=== PATIENT | male | born 1950 | race Caucasian/White ===

== ENCOUNTER 2020-02-05 09:10 | Inpatient (IN) | payer MEDICAID, OTHER ==
[~2020-02-05] VITALS: Ht 170.2 cm; Wt 101.5 kg
[~2020-02-05 09:10] MED LIST: ALBU0.5N2; ALLO-51; ALPR; AMIO200T33 PO; ASPI325T25 PO; ATOR40TA52 PO; CHOL400C2; CITA-77; COLC1TAB3; COMIH IN; DILT360T2 PO; DOCU240C24 PO; EPIN0.3I18; ETHA25TA2 PO; FLUN0.02; GABA800T97; GABA800T97 PO; HYD25T PO; HYDR25CA26; LISI40TA PO; METO-159 PO; METO1TAB9 PO; MORP1TAB12 PO; MULTTAB99; NIAC500T25 PO; NITR0.4S31; NORT25CA PO; OMEG100062; OMEP20TA37 PO; PHEN-839 PO; POTA10TA75 PO; PRED10PA; PSEU60TA PO; ROSU40TA; SENN-46 PO; SIME80CH6 PO; SKINCRE; TERA10CA36 PO; TRAZ100T3 PO; TRIO1TP; ZOLP10TA PO; [UNRECOGNIZED DRUG - CODE]; [UNRECOGNIZED DRUG - CODE]; [UNRECOGNIZED DRUG - CODE] PO
[2020-02-05 09:49] LABS: Basophils # (auto) 0 10 ^3/uL (0-0.2); Basophils % (auto) 0.3 % (0.0-2.0); Eosinophils # (auto) 0.1 10 ^3/uL (0-0.8); Eosinophils % (auto) 0.9 % (0.0-7.0); Hematocrit 42.8 % (41.0-53.0); Hemoglobin 13.8 g/dL (13.5-17.5); Lymphocytes # (auto) 0.9 10 ^3/uL (0.4-5.4); Lymphocytes % (auto) 12.7 % (10.0-50.0); Mean Corpuscular Hemoglobin 30.6 pg (28.0-32.0); Mean Corpuscular Hgb Conc. 32.3 g/dL (32.0-36.0); Mean Corpuscular Volume 94.9 fL (80.0-100.0); Monocytes # (auto) 0.7 10 ^3/uL (0-1.3); Monocytes % (auto) 10.4 % (0.0-12.0); Neutrophils # (auto) 5.1 10 ^3/uL (1.6-8.6); Neutrophils % (auto) 75.7 % (37.0-80.0); Platelet Count (auto) 120 10^3/uL (140-450); Red Blood Cells 4.51 10^6/uL (4.5-5.90); Red Cell Distribution Width 15.2 % (11.8-14.3); White Blood Cell 6.8 10^3/uL (4.4-10.8)
[2020-02-05 10:08] LABS: Albumin 2.9 g/dL (3.4-5.0); Anion Gap 4 (5-15); Blood Urea Nitrogen 21 mg/dL (7-18); Calcium 8.6 mg/dL (8.5-10.1); Carbon Dioxide 27 mmol/L (21-32); Chloride 105 mmol/L (98-107); Glucose 102 mg/dL (74-106); Potassium 4.3 mmol/L (3.5-5.1); Sodium 136 mmol/L (136-145)
[2020-02-05 10:11] LABS: INR 1.01 (0.9-1.15); Partial Thromboplastin Time 31.6 sec (23.64-32.05)
[2020-02-05 10:13] LABS: Alanine Aminotransferase 23 U/L (16-61); Alkaline Phosphatase 85 U/L (45-117); Aspartate Aminotransferase 16 U/L (15-37); BUN/Creatinine Ratio 29.2; Bilirubin, Total 0.4 mg/dL (0.2-1.0); GFR African American 140 mL/min; GFR Non-African American 116 mL/min; Total Protein 6.3 g/dL (6.4-8.2)
[2020-02-05] MEDS ORDERED: SODIUM CHLORIDE 0.9% 250 ML IV ONE (10:30)
[2020-02-05] MEDS ORDERED: PROMETHAZINE HCL 25 MG/ML 1ML IV ONE (12:00)
[2020-02-05 12:19] LABS: Urine Bacteria NONE SEEN /hpf (None Seen); Urine Blood Negative /uL (Negative); Urine Mucus FEW (None Seen); Urine WBC 1 /hpf (0 - 3)
[2020-02-05] MEDS ORDERED: IOHEXOL 350 MG/ML 100ML IJ ONE (12:54)
[2020-02-05] MEDS ORDERED: dilTIAZem 25 MG/5 ML VIAL IV ONE ×2 (14:44→14:45)
[2020-02-05] MEDS ORDERED: METOPROLOL TARTRATE 1MG/1ML-5ML VIAL IV ONE (15:45)
[2020-02-05] MEDS ORDERED: ENOXAPARIN SOD 100 MG/1 ML SYRINGE SC ONE (16:45)
[2020-02-05] MEDS: SODIUM CHLORIDE 0.9% 1,000 ML IV SCH (16:45)
[2020-02-05] MEDS ORDERED: MORPHINE SULF INJ 2 MG/ML SYRINGE 1ML IV PRN (16:45)
[2020-02-05] MEDS ORDERED: IPRATROPIUM BROM 0.5 MG/2.5ML INH SOL NEB PRN (16:45)
[2020-02-05] MEDS ORDERED: ONDANSETRON HCL 4 MG/2 ML VIAL IV PRN (16:45)
[2020-02-05] MEDS ORDERED: NITROGLYCERIN 0.4 MG SL TAB SL PRN (16:45)
[2020-02-05] MEDS ORDERED: ACETAMINOPHEN 500 MG TAB PO PRN (16:45)
[2020-02-05] MEDS ORDERED: AMIODARONE HCL 150 MG in D5W 5% 100 ML IV ONE (16:45)
[2020-02-05] MEDS ORDERED: LEVALBUTEROL HCL 1.25 MG/3 ML NEB NEB PRN (16:45)
[2020-02-05] MEDS ORDERED: AMIODARONE 450mg/250ml AE 250 ML IV SCH ×2 (16:55→22:55)
[2020-02-05] MEDS ORDERED: AMIODARONE HCL (50 MG/ ML) 3 ML VIAL IV ONE (17:03)
[2020-02-05] MEDS ORDERED: methylPREDNISolone SOD SUCC 125 MG/2 ML VL ONE (17:20)
[2020-02-05] MEDS ORDERED: FAMOTIDINE (10MG/ML) 2ML VL IV ONE ×2 (17:20→17:45)
[2020-02-05] MEDS ORDERED: DIGOXIN (250MCG/ML) 2 ML AMPULE IV ONE (17:30)
[2020-02-05] MEDS: dilTIAZem 125mg/125ml BAG KIT 125 ML IV SCH (17:30)
[2020-02-05] MEDS ORDERED: methylPREDNISolone SOD SUCC 125 MG/2 ML VL IV ONE (17:45)
[2020-02-05] MEDS ORDERED: MIDAZOLAM HCL 5 MG/ML-1ML VIAL ONE (17:57)
[2020-02-05] MEDS ORDERED: ENOXAPARIN SOD 30 MG/0.3 ML SYRINGE ONE (17:59)
[2020-02-05] MEDS ORDERED: ENOXAPARIN SOD 30 MG/0.3 ML SYRINGE IV ONE (18:00)
[2020-02-05] MEDS ORDERED: MIDAZOLAM HCL 1MG/1ML-2 ML VIAL IV ONE (18:00)
[2020-02-05] MEDS ORDERED: PHENYLEPHRINE IV 250 ML IV ONE (18:11)
[2020-02-05] MEDS: PHENYLEPHRINE IV 250 ML IV SCH ×2 (18:15→21:16)
[2020-02-05] MEDS: METOPROLOL TARTRATE 50 MG TAB PO SCH (23:03)
[2020-02-06] VITALS (54 sets, daily range): BP systolic 100–142; BP diastolic 46–81
[2020-02-06] MEDS: PHENYLEPHRINE IV 250 ML IV SCH ×2 (00:07→11:30)
[2020-02-06] MEDS: SODIUM CHLORIDE 0.9% 1,000 ML IV SCH ×3 (02:45→20:00)
--- NOTE | 2020-02-06 07:25 | NUR ---
REPORT REPORT OBTAINED. UPDATED ON PLAN OF CARE. PT CURRENTLY SLEEPING, NO SIGNS OF DISTRESS. VSS. CHART CHECK COMPLETED. BED IN LOWEST POSITION, CALL LIGHT AT REACH, BED ALARM ON. SEE PHYSICAL/ IV SPREADSHEET.
--- NOTE | 2020-02-06 09:00 | NUR ---
HR 68, RR 17, SPO2 98% ON 3 L NC, BS CLEAR AND DIMINISHED. PT STATES HIS BREATHING FEELS GOOD. HE ONLY TAKES HIS INHALER AT HOME VERY SPORADICALLY. INFORMED PT TO HIT CALL BUTTON IF FEELING SOB OR WHEEZING. Respiratory note:
--- NOTE | 2020-02-06 09:13 | NUR ---
MD UPDATE MD UPDATED ON PATIENTS STATUS. PER MD, NO NARCOTICS AT THIS TIME PATIENTS BP IS LOW AND CAN CAUSE FURTHER BLOOD PRESSURE ISSUES. SEE NEW ORDERS. OK TO DOWNGRADE TO TELE IF OFF ALL PRESSORS AND STABLE BY THE END OF THE SHIFT.
[2020-02-06] MEDS ORDERED: AMIODARONE HCL 200 MG TAB PO SCH (10:00)
[2020-02-06] MEDS: METOPROLOL TARTRATE 50 MG TAB PO SCH ×2 (10:00→22:00)
[2020-02-06 10:05] LABS: Basophils # (auto) 0 10 ^3/uL (0-0.2); Basophils % (auto) 0.5 % (0.0-2.0); Eosinophils # (auto) 0 10 ^3/uL (0-0.8); Eosinophils % (auto) 0.2 % (0.0-7.0); Hematocrit 40.6 % (41.0-53.0); Hemoglobin 13.2 g/dL (13.5-17.5); Lymphocytes # (auto) 0.7 10 ^3/uL (0.4-5.4); Lymphocytes % (auto) 16.3 % (10.0-50.0); Mean Corpuscular Hemoglobin 30.9 pg (28.0-32.0); Mean Corpuscular Hgb Conc. 32.5 g/dL (32.0-36.0); Mean Corpuscular Volume 95.2 fL (80.0-100.0); Monocytes # (auto) 0.3 10 ^3/uL (0-1.3); Monocytes % (auto) 7.2 % (0.0-12.0); Neutrophils # (auto) 3.2 10 ^3/uL (1.6-8.6); Neutrophils % (auto) 75.8 % (37.0-80.0); Nucleated Red Blood Cells % 0.1 %; Platelet Count (auto) 137 10^3/uL (140-450); Red Blood Cells 4.26 10^6/uL (4.5-5.90); Red Cell Distribution Width 15.4 % (11.8-14.3); White Blood Cell 4.2 10^3/uL (4.4-10.8)
[2020-02-06 10:24] LABS: Potassium 4.5 mmol/L (3.5-5.1)
[2020-02-06 10:29] LABS: BUN/Creatinine Ratio 20.3; Calcium 8.5 mg/dL (8.5-10.1); Magnesium 2.1 mg/dL (1.6-2.6)
[2020-02-06] MEDS: FAMOTIDINE 20 MG TAB PO SCH (10:38)
[2020-02-06] MEDS: CITALOPRAM HYDROBR 20 MG TAB PO SCH (10:38)
[2020-02-06] MEDS: ASPirin 81 mg TAB PO SCH (10:38)
[2020-02-06] MEDS: dilTIAZem 125mg/125ml BAG KIT 125 ML IV SCH (10:41)
--- NOTE | 2020-02-06 11:00 | NUR ---
AT BEDSIDE DR. ROBERTS UPDATED ON PATIENTS STATUS. NEW ORDERS IN PLACE. OK TO DOWNGRADE TO TELE AT THE END OF SHIFT IF BP REMAINS STABLE WITHOUT PRESSORS. Addendum: 02/06/20 at 1714 by Rafaela Manzo RN BP A.M. MEDICATION HELD TO AVOID FURTHER HYPOTENSION. AWARE.
--- NOTE | 2020-02-06 14:29 | NUR ---
DRIVER DR. HAWK AT BEDSIDE. MD UPDATED ON PATIENT STATUS. MEDICATION LIST SHOWN TO MD. OK TO DOWNGRADE TO TELE. SEE MD NOTES/ ORDERS. ECHO PENDING.
--- NOTE | 2020-02-06 14:54 | NUR ---
[employer] HCM DEVELOPER AT BEDSIDE.
--- NOTE | 2020-02-06 19:30 | NUR ---
Opening Shift Note: A&Ox4, resting in bed. Room air, patient states he wears 2.5LO2 via NC prn at home; pain level 5/10 chronic right hip pain; and at baseline, ambulates independently with a cane; currently SBA pivot to the BSC. Bed locked in lowest position, side rails up x2, call light within reach, and bed alarm on for patient safety. Skin intact. IV 18 g in right wrist running NS @ 100 ml/hr inserted on 02/05/20. Patient had a cardioversion (x2, one at 50j and second at 75j) to convert Afib RVR to NSR. Patient is currently NSR in 80s-90s and BP stable 120s-130s. POC discussed with patient and all questions answered. Telemetry downgrade order in; pending bed assignment. Will continue to round and reposition prn.
--- NOTE | 2020-02-06 21:00 | NUR ---
Respiratory note: PT ASSESSED FOR PRN MED NEB TX. HR 91, RR 15. PO2 98% ON RA. NO SIGNS OF ANY RESPIRATORY DISTRESS NOTED. ADVISED PT TO CALL IF TX IS NEEDED.
[2020-02-07] VITALS (35 sets, daily range): BP systolic 108–160; BP diastolic 44–113
[2020-02-07] MEDS: HYDROcodone-ACET 5/325MG TAB PO PRN ×4 (01:30→17:30)
[2020-02-07] MEDS: PHENYLEPHRINE IV 250 ML IV SCH ×2 (03:25→11:45)
[2020-02-07 04:22] LABS: Basophils # (auto) 0 10 ^3/uL (0-0.2); Basophils % (auto) 0.2 % (0.0-2.0); Eosinophils # (auto) 0.1 10 ^3/uL (0-0.8); Eosinophils % (auto) 2.6 % (0.0-7.0); Hematocrit 35.8 % (41.0-53.0); Hemoglobin 11.7 g/dL (13.5-17.5); Lymphocytes % (auto) 29.1 % (10.0-50.0); Mean Corpuscular Hemoglobin 31.2 pg (28.0-32.0); Mean Corpuscular Hgb Conc. 32.6 g/dL (32.0-36.0); Mean Corpuscular Volume 95.7 fL (80.0-100.0); Monocytes # (auto) 0.4 10 ^3/uL (0-1.3); Monocytes % (auto) 11.1 % (0.0-12.0); Neutrophils # (auto) 1.9 10 ^3/uL (1.6-8.6); Nucleated Red Blood Cells % 0.1 %; Platelet Count (auto) 100 10^3/uL (140-450); Red Blood Cells 3.74 10^6/uL (4.5-5.90); Red Cell Distribution Width 15.1 % (11.8-14.3); White Blood Cell 3.4 10^3/uL (4.4-10.8)
[2020-02-07 04:38] LABS: BUN/Creatinine Ratio 18.2; Calcium 8.2 mg/dL (8.5-10.1); Magnesium 2.2 mg/dL (1.6-2.6); Potassium 4.1 mmol/L (3.5-5.1)
--- NOTE | 2020-02-07 06:03 | NUR ---
Respiratory note: PT ASSESSED FOR PRN MED NEB TX, NO TX DESIRED NOR INDICATED. PT AWAKE/SITTING IN BED WITH NO NOTED DISTRESS, DENIES ANY CURRENT SOB. PT AND RN AWARE TO HAVE RT PAGED IF NEEDED. HR 68 RR 16 SPO2 100% ON 2L.
[2020-02-07] MEDS: SODIUM CHLORIDE 0.9% 1,000 ML IV SCH ×2 (07:05→18:45)
[2020-02-07] MEDS: METOPROLOL TARTRATE 50 MG TAB PO SCH (10:00)
[2020-02-07] MEDS: CITALOPRAM HYDROBR 20 MG TAB PO SCH (12:09)
[2020-02-07] MEDS: FAMOTIDINE 20 MG TAB PO SCH (12:09)
[2020-02-07] MEDS: ASPirin 81 mg TAB PO SCH (12:09)
--- NOTE | 2020-02-07 12:30 | NUR ---
CALL PLACED TO DR HAWK RE: PATIENT'S HR DECREASING TO 37-38 NONSUSTAINED RATE AND 46-48 WHEN AWAKE AT TIMES - STATES HR OKAY IF NONSUSTAINED AND PATIENT SHOULD BE DOWNGRADED TO TELE STATUS - INFORMED DR HAWK THAT NO BEDS ON TELE AVAILABLE YESTERDAY OR THIS AM.
--- NOTE | 2020-02-07 12:55 | NUR ---
DR Rory SHOOK PHONES AND UPDATED ON PATIENT CONDITION -STATES WOULD LIKE TO DISCHARGE PATIENT IF OK WITH DR HAWK.
--- NOTE | 2020-02-07 13:20 | NUR ---
CALL PLACED TO DR HAWK PER GARBAGE DEPOT WORKER PER DR SHOOK REQUEST FOR DISCHARGE CLEARANCE.
--- NOTE | 2020-02-07 15:00 | NUR ---
PLACED ANOTHER CALL TO DR HAWK RE: STABILITY FOR DISCHARGE - ORDER RECEIVED.
--- NOTE | 2020-02-07 15:15 | NUR ---
DR SHOOK VISITS - INFORMED OF OK FOR DISCHARGE PER DR HAWK - STATES WILL DISCHARGE PATIENT.
--- NOTE | 2020-02-07 16:10 | NUR ---
SS consult regarding Home health for safety evaluation and blood pressure monitoring. Contacted pt's medical group and faxed clinical information. Referred to [facility] ([phone])and spoke with Erin. confirmed that pt is accepted onto service and will be seen post discharge. No further social service concerns at this time.
[2020-02-07] MEDS ORDERED: MET25T PO (17:12)
[2020-02-07] MEDS ORDERED: APIX5TAB PO (17:12)
--- NOTE | 2020-02-07 17:43 | NUR ---
PATIENT'S HR SUSTAINING 38-41 - BP 135/44 - CALL PLACED TO DR SHOOK.
--- NOTE | 2020-02-07 17:55 | NUR ---
DR HAWK RETURNS CALL - INFORMED OF PATIENT SUSTAINING HR 36-41 WHEN AWAKE - ORDER RECEIVED TO KEEP PATIENT OVERNIGHT FOR ADDITIONAL MONITORING ON EITHER TELE OR KIRK FLOOR - CALL PLACED TO DR SHOOK. HR CONT'S TO SUSTAIN 36-41 WHEN PATIENT DOSING AND AWAKE - STRIPS POSTED TO CHART.
--- NOTE | 2020-02-07 18:45 | NUR ---
DR SHOOK RETURNS CALL - AWARE OF PATIENT LOW H.R. PER NOTES AND DELAYED DISCHARGE.
--- NOTE | 2020-02-07 20:00 | NUR ---
Respiratory note: PT RECIEVED ON NC3L. PT IS AWAKE AND ALERT WITH NO RESP DISTRESS NOTED. NO INDICATION FOR PRN TX AT THIS TIME. SPO2 98%, HR 64, RR 18, BS CLR/DIM. PT AWARE TO CALL FOR BREATHING TX IF SOB/WHEEZING. WILL CONTINUE TO MONITOR PT T/O SHIFT.
--- NOTE | 2020-02-07 20:05 | NUR ---
TRANSFERRED TO ROOM 261 PER BED ON PORTABLE COPY LATHE TENDER AND O2 @ 2L PER NC. CONDITION APPEARS STABLE FOR TRANSFER.
--- NOTE | 2020-02-07 20:23 | NUR ---
PT IN [place] NO DISTRESS NOTED. BREATHING EVEN AND UNLABORED. WILL CONTINUE TO MONITOR. CALL LIGHT WITHIN REACH AND BED LOCKED FOR SAFETY.
[2020-02-07] MEDS: METOPROLOL TARTRATE 25 MG TAB PO SCH (21:54)
[2020-02-08] VITALS: BP 156/74
--- NOTE | 2020-02-08 01:05 | NUR ---
PT WATCHING TABLET ALSO TALKING WITH FAMILY. CALL LIGHT WITHIN REACH WILL KEEP MONITORING.
[2020-02-08] MEDS: MORPHINE SULF INJ 2 MG/ML SYRINGE 1ML IV PRN ×2 (01:32→09:48)
[2020-02-08 04:00] VITALS: BP 134/66
[2020-02-08] MEDS: SODIUM CHLORIDE 0.9% 1,000 ML IV SCH (04:11)
--- NOTE | 2020-02-08 05:57 | NUR ---
REMOVED IV PT STATES WHILE REPOSITIONING IV WAS DISLODGED. PT CHANGED PARTIAL LINEN CHANGE. EDUCATED PT ON IV FLUID DELAY UNTIL NEW IV PLACED.
--- NOTE | 2020-02-08 06:51 | NUR ---
Respiratory note: PT ASSESSED FOR PRN MED NEB TX, NO TX DESIRED NOR INDICATED. PT AWAKE/SITTING IN BED WATCHING TV WITH NO NOTED DISTRESS, DENIES ANY CURRENT SOB. PT AND RN AWARE TO HAVE RT PAGED IF NEEDED. HR 78 RR 14 SPO2 95% ON 2.5L N/C BREATH SOUNDS ARE CLEAR/DIMINISHED T/O.
[2020-02-08] MEDS: HYDROcodone-ACET 5/325MG TAB PO PRN (06:54)
--- NOTE | 2020-02-08 07:30 | NUR ---
ASSESS- PT. LYING IN BED AWAKE, ALERT AND ORIENTED TIMES FOUR. DENIES ANY PAIN OR DISCOMFORT AT THIS TIME. LUNGS CLEAR ROMAN. INSPIRATORY AND EXPIRATORY. NO SOB. O2 3L N/C. PT. REMOVES O2 AT TIMES, NO SIGNS OF RESP. DISTRESS, O2 SATS>90%. ABD. SOFT, FLAT, NON-TENDER. BOWEL SOUNDS ALL FOUR QUADRANTS. NO N/V. VOIDS VIA URINAL WITHOUT DIFFICULTY. SKIN INTACT. RADIAL PULSES STRONG, PALPABLE ROMAN. DORSALIS PEDAL PULSES STRONG, PALPABLE ROMAN. NO EDEMA. SCD'S ROMAN. LE. SR, HR 70'S-80'S WITHOUT ECTOPY.
[2020-02-08 08:00] VITALS: BP 154/73
[2020-02-08] MEDS: ASPirin 81 mg TAB PO SCH (09:41)
[2020-02-08] MEDS: FAMOTIDINE 20 MG TAB PO SCH (09:41)
[2020-02-08] MEDS: METOPROLOL TARTRATE 25 MG TAB PO SCH (09:42)
[2020-02-08] MEDS: CITALOPRAM HYDROBR 20 MG TAB PO SCH (09:42)
--- NOTE | 2020-02-08 09:48 | NUR ---
PT. REPORTING BACK PAIN AND ROMAN. HIP PAIN 8 ON A SCALE OF 0-10. MED. WITH MORPHINE 1MG. IVP.
--- NOTE | 2020-02-08 10:18 | NUR ---
PT. NO LONGER HAVING ANY PAIN.
--- NOTE | 2020-02-08 11:35 | NUR ---
DR. Juvenal QUISPE CALLED AND SAID IF DR. KENN ARRIAZA PT. MAY BE D'C'D . TODAY, PLACED D'C ORDER.
--- NOTE | 2020-02-08 11:37 | NUR ---
Called/paged Dr. HAWK called re:. Waiting for call back. Continue care.
--- NOTE | 2020-02-08 11:51 | NUR ---
returned call Dr. HAWK returned call, updated on patient status and reason for call, orders received. Continue care.
[2020-02-08 12:00] VITALS: BP 122/50
[2020-02-08 12:17] VITALS: BP 122/50
[2020-02-08 13:06] VITALS: BP 122/50
--- NOTE | 2020-02-08 14:15 | NUR ---
PT. D'C'D HM. VIA W/C TO CAR, FAMILY PICKING PT. UP VIA CAR. BELONGINGS WITH PT. ALL D'C' INFORMATION AND HANDOUTS GIVEN TO PT. FOLLOW UP APPT. WITH DR. KENN PEREZ. PT. HAD ELECTRONIC RX. WITH HIS PHARM[facility], CALLED AND NEW RX. 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
== END 2020-02-08 14:29 | disposition home health service (06) | DRG 308 ==
LOC: EDBD 09:10 → ER 09:10 → EDUNIT# 09:10 → TELE 09:11 → ICU WEST 02-06 03:50 → DOU IN ICU 02-07 20:05
PROVIDERS: ADMIT Nurse Practitioner Acute Care; ATTEND Hospitalist
PROC: 5A2204Z Restoration of Cardiac Rhythm, Single (ICD-10-PCS; principal; 2020-02-06)
DX: I48.91 Unspecified atrial fibrillation (principal); R57.1 Hypovolemic shock; R57.0 Cardiogenic shock; D68.59 Other primary thrombophilia; E44.0 Moderate protein-calorie malnutrition; J44.9 Chronic obstructive pulmonary disease, unspecified; E66.9 Obesity, unspecified; Z79.891 Long term (current) use of opiate analgesic; F32.9 Major depressive disorder, single episode, unspecified; G89.4 Chronic pain syndrome; M15.9 Polyosteoarthritis, unspecified; I95.9 Hypotension, unspecified; D69.6 Thrombocytopenia, unspecified; E78.5 Hyperlipidemia, unspecified; I47.1 Supraventricular tachycardia; K21.9 Gastro-esophageal reflux disease without esophagitis; M10.9 Gout, unspecified; R00.1 Bradycardia, unspecified; I71.2 Thoracic aortic aneurysm, without rupture; Z68.35 Body mass index [BMI] 35.0-35.9, adult; Z88.2 Allergy status to sulfonamides; Z82.49 Family history of ischemic heart disease and other diseases of the circulatory system; Z82.5 Family history of asthma and other chronic lower respiratory diseases; Z83.3 Family history of diabetes mellitus
CPT/HCPCS: 36415; 71045; 71275; 80048; 80053; 81001; 83735; 83880; 84443; 84484; 85025; 85379; 85610; 85730; 87081; 93005; 93306; 94640; G0378; J2250; J3490; J7060

== ENCOUNTER 2020-02-20 21:40 | Inpatient (IN) | payer OTHER ==
[~2020-02-20] VITALS: Ht 177.8 cm; Wt 98.9 kg
[~2020-02-20 21:40] MED LIST changes: -ALPR; -AMIO200T33 PO; +APIX5TAB PO; -ASPI325T25 PO; -COLC1TAB3; -COMIH IN; -DILT360T2 PO; -ETHA25TA2 PO; -FLUN0.02; -GABA800T97; -GABA800T97 PO; -HYD25T PO; -HYDR25CA26; -LISI40TA PO; +MET25T PO; -METO-159 PO; -METO1TAB9 PO; -MORP1TAB12 PO; -NIAC500T25 PO; -PHEN-839 PO; -PRED10PA; -PSEU60TA PO; -ROSU40TA; -SIME80CH6 PO; -SKINCRE; -TERA10CA36 PO; -TRIO1TP; -[UNRECOGNIZED DRUG - CODE]; -[UNRECOGNIZED DRUG - CODE]; -[UNRECOGNIZED DRUG - CODE] PO
[2020-02-20] MEDS ORDERED: MORPHINE SULFATE 4 MG/ML SYR/VIAL IV ONE (22:30)
[2020-02-20] MEDS ORDERED: ONDANSETRON HCL 4 MG/2 ML VIAL IV ONE (22:30)
[2020-02-20 22:48] LABS: Basophils # (auto) 0 10 ^3/uL (0-0.2); Basophils % (auto) 0.5 % (0.0-2.0); Eosinophils # (auto) 0.1 10 ^3/uL (0-0.8); Eosinophils % (auto) 0.6 % (0.0-7.0); Hematocrit 38.8 % (41.0-53.0); Hemoglobin 12.6 g/dL (13.5-17.5); Lymphocytes # (auto) 0.9 10 ^3/uL (0.4-5.4); Lymphocytes % (auto) 9.2 % (10.0-50.0); Mean Corpuscular Hemoglobin 30.7 pg (28.0-32.0); Mean Corpuscular Hgb Conc. 32.4 g/dL (32.0-36.0); Mean Corpuscular Volume 94.8 fL (80.0-100.0); Monocytes # (auto) 0.8 10 ^3/uL (0-1.3); Monocytes % (auto) 8.3 % (0.0-12.0); Neutrophils # (auto) 7.7 10 ^3/uL (1.6-8.6); Neutrophils % (auto) 81.4 % (37.0-80.0); Platelet Count (auto) 187 10^3/uL (140-450); Red Blood Cells 4.09 10^6/uL (4.5-5.90); Red Cell Distribution Width 15.3 % (11.8-14.3); White Blood Cell 9.4 10^3/uL (4.4-10.8)
[2020-02-20 23:06] LABS: Anion Gap 3 (5-15); Blood Urea Nitrogen 22 mg/dL (7-18); Calcium 8.5 mg/dL (8.5-10.1); Carbon Dioxide 29 mmol/L (21-32); Chloride 107 mmol/L (98-107); Glucose 100 mg/dL (74-106); Potassium 4.4 mmol/L (3.5-5.1); Sodium 139 mmol/L (136-145)
[2020-02-20 23:09] LABS: Alanine Aminotransferase 20 U/L (16-61); Aspartate Aminotransferase 15 U/L (15-37); BUN/Creatinine Ratio 24.2; GFR African American 107 mL/min; GFR Non-African American 88 mL/min
[2020-02-20 23:13] LABS: Alkaline Phosphatase 87 U/L (45-117); Bilirubin, Total 0.3 mg/dL (0.2-1.0); Total Protein 6.3 g/dL (6.4-8.2)
[2020-02-21] MEDS ORDERED: MORPHINE SULFATE 4 MG/ML SYR/VIAL IV ONE (01:45)
[2020-02-21] MEDS ORDERED: NITROGLYCERIN 0.4 MG SL TAB SL PRN (02:45)
[2020-02-21] MEDS ORDERED: ACETAMINOPHEN 325 MG TAB PO PRN (02:45)
[2020-02-21] MEDS ORDERED: IPRATROPIUM BROM 0.5 MG/2.5ML INH SOL NEB PRN (02:45)
[2020-02-21] MEDS ORDERED: METOPROLOL TARTRATE 1MG/1ML-5ML VIAL IV PRN (02:45)
[2020-02-21] MEDS ORDERED: ALBUTEROL SULF 2.5 MG/0.5ML(0.5%) NEB SOLN NEB PRN (02:45)
[2020-02-21] MEDS ORDERED: ZOLPIDEM TARTRATE 5 MG TAB PO PRN (02:45)
[2020-02-21] MEDS ORDERED: ONDANSETRON HCL 4 MG/2 ML VIAL IV PRN (02:45)
[2020-02-21 03:31] LABS: Urine Amorphous Crystal FEW /hpf (None Seen); Urine Bacteria FEW /hpf (None Seen); Urine Blood Negative /uL (Negative); Urine Specific Gravity 1.017 (1.001-1.035); Urine WBC <1 /hpf (0 - 3)
[2020-02-21 07:12] LABS: Basophils # (auto) 0 10 ^3/uL (0-0.2); Basophils % (auto) 0.6 % (0.0-2.0); Eosinophils # (auto) 0.1 10 ^3/uL (0-0.8); Eosinophils % (auto) 1.5 % (0.0-7.0); Hematocrit 37.1 % (41.0-53.0); Hemoglobin 12.3 g/dL (13.5-17.5); Lymphocytes # (auto) 1.2 10 ^3/uL (0.4-5.4); Lymphocytes % (auto) 23.2 % (10.0-50.0); Mean Corpuscular Hgb Conc. 33.1 g/dL (32.0-36.0); Mean Corpuscular Volume 93.8 fL (80.0-100.0); Monocytes # (auto) 0.7 10 ^3/uL (0-1.3); Monocytes % (auto) 14.1 % (0.0-12.0); Neutrophils # (auto) 3.1 10 ^3/uL (1.6-8.6); Neutrophils % (auto) 60.6 % (37.0-80.0); Nucleated Red Blood Cells % 0.2 %; Platelet Count (auto) 162 10^3/uL (140-450); Red Blood Cells 3.95 10^6/uL (4.5-5.90); Red Cell Distribution Width 15.4 % (11.8-14.3); White Blood Cell 5.2 10^3/uL (4.4-10.8)
[2020-02-21 07:24] LABS: Calcium 7.8 mg/dL (8.5-10.1); Potassium 4.1 mmol/L (3.5-5.1)
[2020-02-21 07:29] LABS: BUN/Creatinine Ratio 21.9
[2020-02-21] MEDS: DOCUSATE SOD 100 MG CAP PO SCH (09:53)
[2020-02-21] MEDS: MORPHINE SULF INJ 2 MG/ML SYRINGE 1ML IV PRN ×2 (09:55→17:26)
[2020-02-21] MEDS: METOPROLOL TARTRATE 25 MG TAB PO SCH ×2 (09:58→22:00)
[2020-02-21] MEDS ORDERED: CLOPIDOGREL BISULFATE 75 MG TAB PO SCH (10:00)
[2020-02-21] MEDS ORDERED: LISINOPRIL 20 MG TAB PO SCH (10:00)
--- NOTE | 2020-02-21 16:00 | NUR ---
Telemetry admit from [facility] admitted to Telemetry unit after SBAR received. Patient oriented to SARI DOWNS, primary RN, unit, room, bed, and unit policies regarding patient care and visiting hours. Patient now on continuous telemetry monitoring, tele box #[id number]. Patient placed on bedside oxygen at 2L O2 via NC, weighed by bedscale and encouraged to call if they need something. All questions and concerns addressed, patient verbalized understanding. Cane at bedside. Patient advised to call before getting up for anything due to history of falls. Urinal provided. Fall band applied.
[2020-02-21 16:37] VITALS: BP 103/53
[2020-02-21 17:00] VITALS: BP 106/57
[2020-02-21 17:30] VITALS: BP 147/72
[2020-02-21] MEDS ORDERED: LISI-648 PO (18:39)
[2020-02-21] MEDS ORDERED: HYDR12.56 PO (18:39)
[2020-02-21] MEDS ORDERED: METO25TA5 PO (18:39)
[2020-02-21] MEDS ORDERED: DIAZ10TA3 PO (18:39)
--- NOTE | 2020-02-21 19:27 | NUR ---
Opening Shift Note Assumed care of patient after receiving report from day RN. Patient awake and alert with no S/S of distress/SOB or pain. Call light within reach, bed in lowest position x2 side rails, HOB semi fowlers. Instructed on POC and to call for assist PRN, will continue to monitor for changes Q1hr and PRN.
--- NOTE | 2020-02-21 21:10 | NUR ---
Respiratory note: PT ASSESSED FOR PRN MED NEB TX. HR 72, RR 18, SPO2 96% ON RA. NO S/S OF ANY RESPIRATORY DISTRESS NOTED. ADVISED PT TO CALL IF TX IS NEEDED. RT NAME AND PAGER NUMBER WRITTEN ON PT'S BOARD.
[2020-02-21 21:32] VITALS: BP 98/58
[2020-02-21] MEDS ORDERED: NORTRIPTYLINE HCL 25 MG CAP PO SCH (22:00)
[2020-02-21] MEDS ORDERED: ATORVASTATIN 20 MG TAB PO SCH (22:00)
--- NOTE | 2020-02-21 22:09 | NUR ---
Called pharmacy Called pharmacy regarding patient medication of scheduled Pamelor, medication not found. Per pharmacy, medication waiting, will bullet up.
[2020-02-21] MEDS: APIXABAN 5 MG TAB PO SCH (22:16)
--- NOTE | 2020-02-21 22:20 | NUR ---
BP reassessment RN reassessed BP with a current reading of 110/53 and HR 78. Patient refused scheduled BP medication stating it would drop him too low. Will continue to monitor.
--- NOTE | 2020-02-21 22:57 | NUR ---
Paged Hospitalist Paged hospitalist requesting pain medication. Patient complains of chronic right hip pain 04/10. Order received form hospitalist for [place] 5 Q8H PRN for moderate pain. Order received, read back, verified, and placed. Will administer and continue to monitor.
[2020-02-22] MEDS: HYDROcodone-ACET 5/325MG TAB PO PRN ×2 (00:45→14:39)
[2020-02-22 04:54] VITALS: BP 124/67
--- NOTE | 2020-02-22 06:04 | NUR ---
PRN [place] TX NOT INDICATED AT THIS TIME. PT ON SEMI FOWLERS POSITION. PT ON 2L/MIN VIA NC. 97% O2 SATS, HR 76BPM, RR16 BPM, BS ARE CLEAR TO AUSCULTATION, SKIN IS DRY AND WARM TO THE TOUCH. RESPIRATIONS ARE EVEN AND UNLABORED. PT DENIES SOB OR ANY OTHER RESPIRATORY DISTRESS. PT INSTRUCTED TO CALL IF [place] TX IS INDICATED. PT VERBALIZED UNDERSTANDING. WILL CONTINUE TO MONITOR PT.
[2020-02-22] MEDS: MORPHINE SULF INJ 2 MG/ML SYRINGE 1ML IV PRN (08:01)
[2020-02-22 08:48] VITALS: BP 151/101
[2020-02-22] MEDS ORDERED: SENNA 8.6 MG TAB PO SCH (10:00)
[2020-02-22] MEDS ORDERED: ALLOPURINOL 100 MG TAB PO SCH (10:00)
[2020-02-22] MEDS ORDERED: CITALOPRAM HYDROBR 20 MG TAB PO SCH (10:00)
[2020-02-22] MEDS ORDERED: MORPHINE SULF 15mg ER tab PO SCH (10:00)
[2020-02-22] MEDS ORDERED: diazePAM 2 MG TAB PO SCH ×2 (10:00→10:30)
[2020-02-22] MEDS ORDERED: METOPROLOL TARTRATE 25 MG TAB PO SCH (10:00)
[2020-02-22] MEDS ORDERED: LISINOPRIL 10 MG TAB PO SCH (10:00)
[2020-02-22] MEDS: APIXABAN 5 MG TAB PO SCH (10:23)
[2020-02-22] MEDS: DOCUSATE SOD 100 MG CAP PO SCH (10:23)
--- NOTE | 2020-02-22 10:32 | NUR ---
Assessment Patient is a 69-year-old male who is alert and oriented. Prior to admission patient lived home alone and functioned independently. Patient informed me he can care for his own ADLs but lately has been having difficulty walking due to his hip and kneed. Patient informed me he has been on service with [facility]. Informed patient I will inform nurse regarding resumption order for home health. Patient informed me he has a walker, cane, and electric wheelchair for home use. Patient informed me after discharge he will be staying with his son Ghassan Pereira:( [phone]) who will assist with his needs and will need a taxi voucher. Patient informed me he would like information regarding private care consultant. Information was given to patient regarding private caregivers. Informed patient he has a right to participate in all discharge planning. Patient verbalized understanding. Informed NIRAV Bosch regarding resumption order for home health safety eval and physical therapy.
[2020-02-22 10:35] VITALS: BP 108/60
--- NOTE | 2020-02-22 12:57 | NUR ---
ECHO Contacted ECHO staff they said that Dr. Sullivan did not want to do a repeat ECHO as patient had one done recently.
--- NOTE | 2020-02-22 14:03 | NUR ---
Diazepam - not given Patient stated he takes Diazepam 60 mg BID. Pharmacy called and said that dose is too high and above safe limits. They said the highest limit is 40 mg per day. This nurse spoke with the patient again and he said he takes 60 mg but splits it in half and takes it twice a day, so he takes Diazepam 30 mg BID. The pharmacy said this is still too high and want it verified. This nurse called his pharmacy, [facility], and they said they did not have that medication on file. This nurse asked the patient about the pharmacy and he said he gets the Diazepam [facility]. This nurse called the [facility] and they said that medication is not listed on his current medication list. They said there are no meds ending in "bjorn" on his current or previous medication list. Patient is being discharged home. Diazepam is held due to not being able to verify the dose or if the patient even takes the medication. He can take his home prescription after discharge if he is on the medication.
[2020-02-22 14:54] VITALS: BP 101/55
--- NOTE | 2020-02-22 15:03 | NUR ---
1500 02/22/20 - Faxed orders for physical therapy and physical safety to [facility] at [phone]. Contacted case resource manager Marla at [phone] who confirmed receipt of all faxed documents. Marla also informed that [facility] had been approved and had set up appointment to see patient once discharged.
--- NOTE | 2020-02-22 15:20 | NUR ---
Discharge Went over discharge paperwork with patient. No new prescriptions. Removed IV intact, no problems. Removed telemetry box and sent to ICU per hospital protocol. Removed ID bands. Patient unable to get a ride home at this time. Contacted for a taxi voucher.
--- NOTE | 2020-02-22 16:07 | NUR ---
Taxi - pt left Received taxi voucher from . Patient left in taxi with all personal belongings and went to his son's house.
== END 2020-02-22 16:10 | disposition home or self-care (01) | DRG 313 ==
LOC: ER 21:40 → EDBD 21:40 → TELE 21:41 → TELE-CENTR 02-21 16:20
PROVIDERS: ADMIT Hospitalist; ATTEND Hospitalist
DX: R07.89 Other chest pain (principal); D68.69 Other thrombophilia; I25.10 Atherosclerotic heart disease of native coronary artery without angina pectoris; J44.9 Chronic obstructive pulmonary disease, unspecified; E11.9 Type 2 diabetes mellitus without complications; Z68.31 Body mass index [BMI] 31.0-31.9, adult; G89.4 Chronic pain syndrome; I11.0 Hypertensive heart disease with heart failure; I50.9 Heart failure, unspecified; Z79.01 Long term (current) use of anticoagulants; I48.91 Unspecified atrial fibrillation; Z98.84 Bariatric surgery status; Z88.2 Allergy status to sulfonamides; Z88.5 Allergy status to narcotic agent; Z88.8 Allergy status to other drugs, medicaments and biological substances; E66.01 Morbid (severe) obesity due to excess calories
CPT/HCPCS: 36415; 71045; 80048; 80053; 80061; 81001; 83880; 84484; 85025; 87081; 93005; 96374; 96375; 96376; G0378; J2405

== ENCOUNTER 2020-08-11 02:26 | Emergency (ER) | payer OTHER ==
[~2020-08-11] VITALS: Ht 170.2 cm; Wt 92.5 kg
[~2020-08-11 02:26] MED LIST changes: +DIAZ10TA3 PO; +HYDR12.56 PO; +LISI-648 PO; +METO25TA5 PO; -ZOLP10TA PO
[2020-08-11 04:40] VITALS: BP 161/86
== END 2020-08-11 04:58 | disposition home or self-care (01) ==
LOC: ER 02:26 → EDBD 02:26 → EDUNIT# 02:26 → ER 04:49
DX: S83.91XA Sprain of unspecified site of right knee, initial encounter (principal); M25.461 Effusion, right knee; I11.0 Hypertensive heart disease with heart failure; I50.9 Heart failure, unspecified; J44.9 Chronic obstructive pulmonary disease, unspecified; E78.5 Hyperlipidemia, unspecified; W18.39XA Other fall on same level, initial encounter; Y93.89 Activity, other specified; Y92.89 Other specified places as the place of occurrence of the external cause; Y99.8 Other external cause status
CPT/HCPCS: 29505; 73564

== ENCOUNTER 2021-12-13 01:40 | Emergency (ER) | payer OTHER ==
[~2021-12-13] VITALS: Ht 170.2 cm; Wt 102.5 kg
[~2021-12-13 01:40] MED LIST changes: -LISI-648 PO; +LISI-716 PO; +POTA-264 PO; -POTA10TA75 PO; +SENN-36 PO; -SENN-46 PO
[2021-12-13] MEDS: DexAMETHasone SOD PHOS 10MG/1ML VIAL INJ IV ONE (02:59)
[2021-12-13] MEDS ORDERED: PRED20TA2 PO (03:13)
[2021-12-13 03:49] VITALS: BP 104/60
== END 2021-12-13 03:52 | disposition home or self-care (01) ==
LOC: EDBD 01:40 → ER 01:40
DX: L50.9 Urticaria, unspecified (principal); I11.0 Hypertensive heart disease with heart failure; I50.9 Heart failure, unspecified; J44.9 Chronic obstructive pulmonary disease, unspecified; E78.5 Hyperlipidemia, unspecified; Z88.2 Allergy status to sulfonamides; Z88.8 Allergy status to other drugs, medicaments and biological substances
CPT/HCPCS: 96374; 99283; J1100; 93005

== ENCOUNTER 2024-05-22 09:28 | Inpatient (IN) | payer MEDICARE, OTHER ==
[~2024-05-22] VITALS: Ht 170.2 cm; Wt 97.0 kg
[~2024-05-22 09:28] MED LIST changes: -HYDR12.56 PO; +HYDR12.59 PO; -LISI-716 PO; +LISI10TA34 PO; +PRED20TA2 PO; +TRAZ-228 PO; -TRAZ100T3 PO
[2024-05-22] MEDS: SODIUM CHLORIDE 0.9% 1,000 ML IV ONE (10:00)
[2024-05-22 10:56] LABS: Basophils # (auto) 0 10 ^3/uL (0-0.2); Basophils % (auto) 0.2 % (0.0-2.0); Eosinophils # (auto) 0 10 ^3/uL (0-0.8); Eosinophils % (auto) 0.2 % (0.0-7.0); Hematocrit 43.1 % (41.0-53.0); Hemoglobin 14.4 g/dL (13.5-17.5); Lymphocytes # (auto) 0.9 10 ^3/uL (0.4-5.4); Lymphocytes % (auto) 10.5 % (10.0-50.0); Mean Corpuscular Hemoglobin 30.2 pg (28.0-32.0); Mean Corpuscular Hgb Conc. 33.4 g/dL (32.0-36.0); Mean Corpuscular Volume 90.5 fL (80.0-100.0); Monocytes # (auto) 0.7 10 ^3/uL (0-1.3); Monocytes % (auto) 7.9 % (0.0-12.0); Neutrophils % (auto) 81.2 % (37.0-80.0); Nucleated Red Blood Cells % 0.1 %; Platelet Count (auto) 208 10^3/uL (140-450); Red Blood Cells 4.76 10^6/uL (4.5-5.90); Red Cell Distribution Width 16.6 % (11.8-14.3); White Blood Cell 8.6 10^3/uL (4.4-10.8)
[2024-05-22 10:59] LABS: Chloride 101 mmol/L (98-107); Potassium 4.3 mmol/L (3.5-5.1); Sodium 135 mmol/L (136-145)
[2024-05-22 11:00] LABS: Anion Gap 8 (5-15); Calcium 10.4 mg/dL (8.7-10.4); Carbon Dioxide 26 mmol/L (20-30)
--- NOTE | 2024-05-22 11:00 | ED.PDOC ---
GI ASSESSMENT HPI Comments 74M BIBA w/ prior Hx of hip surgery in 2013 which may be associated to the c/c of ABD pain. Pt reports that he was eating a sandwich and immediately after the pt started to feel epigastric ABD pain which radiated up into the pt chest, causing CP. Pt notes that he did eat the sandwich yesterday on 05/21/24. EMS states that the pt complained of having a CARRINGTON and having soft stools. PMHx of AFIB, arthritis, CHF, COPD, High Lipids and HTN. SHx of Tonsillectomy. Denies chills, fever, N/V, SOB, CP or other associated symptoms, modifiers, or recent injuries at this time. Chief Complaint: Abdominal Pain Time Seen by MD: 09:35 Primary Care Provider: JOHANNE Reviewed Notes: Nurses Notes, Sales Promoter Notes, Medications, Allergies Allergies: Coded Allergies: Amiodarone (Verified Allergy, Unknown, 08/11/20) Diphenhydramine (Verified Allergy, Unknown, 08/11/20) Furosemide (Verified Allergy, Unknown, 08/11/20) Ibuprofen (Verified Allergy, Unknown, 08/11/20) Naproxen (Verified Allergy, Unknown, 08/11/20) Sulfa Drugs (Verified Allergy, Unknown, 08/11/20) Home Meds Active Scripts Prednisone (Prednisone) 20 Mg Tab, 60 MG PO DAILY for 3 Days, #9 MG Prov:REILLY REYES DO 12/13/21 Apixaban Base (ELIQUIS) 5 Mg Tab, 5 MG PO BID, #60 TAB Prov:JUANY ROBERTS MD 02/07/20 Metoprolol Tartrate (Lopressor) 25 Mg Tb, 12.5 MG PO BID, #30 TAB Check blood pressure and pulse prior to dose. Hold medication if systolic blood pressure is below 120 or pulse less than 70 Prov:JUANY ROBERTS MD 02/07/20 Reported Medications Metoprolol Tartrate (Metoprolol Tartrate) 25 Mg Tab, 10 MG PO BID for 30 Days, MG 02/21/20 Lisinopril (Lisinopril) 10 Mg Tab, 10 MG PO BID for 30 Days, MG 02/21/20 Diazepam (Diazepam) 10 Mg Tab, 30 MG PO BID, TAB 02/21/20 Hydrochlorothiazide (Hydrochlorothiazide) 12.5 Mg Cap, 12.5 MG PO DAILY for 30 Days, MG 02/21/20 Nortriptyline Hcl (PAMELOR CAPSULE) 25 Mg Cp, 50 MG PO HS, CP 03/27/14 Allopurinol (Zyloprim) 100 Mg Tab 01/24/13 Omeprazole (Sm Omeprazole) 20 Mg Tab, 40 MG PO DAILY 01/24/13 Docusate Calcium (Sb Stool Softener) 240 Mg Cap, PO 01/24/13 Nitroglycerin (Nitroglycerin) 0.4 Mg Sl, DAILYP 01/24/13 Trazodone Hcl (Trazodone Hcl) 100 Mg Tab, PO HS 01/24/13 Atorvastatin Calcium (ATORVASTATIN CALCIUM) 40 Mg Tab, PO HS 01/24/13 Senna (Sennosides) 8.6 Mg Tab, PO DAILYP 01/24/13 Potassium Chloride (K-Tabs) 10 Meq Tab, PO DAILY 01/24/13 Multiple Vitamin (Mvi Tab) 1 Tab Tb 01/13/12 [place]-3 Fatty Acids (Fish Oil) 1,000 Mg Cap 01/13/12 Epinephrine Hcl (Anaphylaxis) (Epipen) 0.3 Mg Inj 01/13/12 Citalopram Hydrobromide (Citalopram Hydrobromide) 20 Mg Tab 01/13/12 Cholecalciferol (D 400) 400 Unit Chw 01/13/12 Albuterol Sulfate (Albuterol Sulfate) 0.5 % Neb 01/13/12 Information Source: Patient, Emergency Med Personnel Mode of Arrival: EMS Timing: Hours Duration: Since onset, Hours Prehospital treatment: None Quality: Aching Vomitus: None Stool: Normal Severity: Moderate Recent: None Recent Hx of: None Pain Location: Epigastric Associated sign and symptoms: Nausea, Abdominal Pain Past Medical History PAST MEDICAL HISTORY: AFIB, Arthritis, CHF, COPD, High Lipids, HTN Surgical History: Tonsillectomy Surgical History (Other): Hip surgery-2014 Family History Family History: Reviewed,noncontributory to illness, Unknown Social History Smoker: Non-Smoker Alcohol: Denies ETOH Use Drugs: Denies Drug Use Lives In: Home Constitutional: denies: chills, diaphoresis, fatigue, fever, malaise, sweats, weakness, others EENTM: denies: blurred vision, double vision, ear bleeding, ear discharge, ear drainage, ear pain, ear ringing, eye pain, eye redness, hearing loss, mouth pain, mouth swelling, nasal discharge, nose bleeding, nose congestion, nose pain, photophobia, tearing, throat pain, throat swelling, voice changes, others Respiratory: denies: cough, hemoptysis, orthopnea, SOB at rest, shortness of breath, SOB with excertion, stridor, wheezing, others Cardiovascular: reports: chest pain; denies: dizzy spells, diaphoresis, Dyspnea on exertion, edema, irregular heart beat, left arm pain, lightheadedness, palpitations, PND, syncope, others Gastrointestinal: reports: abdominal pain, nausea; denies: abdomen distended, blood streaked bowels, constipated, diarrhea, dysphagia, difficulty swallowing, hematemesis, melena, poor appetite, poor fluid intake, rectal bleeding, rectal pain, vomiting, others Genitourinary: denies: burning, dysuria, flank pain, frequency, hematuria, incontinence, penile discharge, penile sore, pain, testicle pain, testicle swelling, urgency, others Neurological: reports: headache; denies: dizziness, fainting, left sided numbness, left sided weakness, numbness, paresthesia, pre-existing deficit, right sided numbness, right sided weakness, seizure, speech problems, tingling, tremors, weakness, others Musculoskeletal: denies: back pain, gout, joint pain, joint swelling, muscle pain, muscle stiffness, neck pain, others Integumetry: denies: bruises, change in color, change in hair/nails, dryness, laceration, lesions, lumps, rash, wounds, others Allergic/Immunocompromised: denies: Difficulty Healing, Frequent Infections, Hives, Itching, others Hematologic/Lymphatic: denies: anemia, blood clots, easy bleeding, easy bruising, swollen glands, others Endocrine: denies: excessive hunger, excessive sweating, excessive thirst, excessive urination, flushing, intolerance to cold, intolerance to heat, unexplained weight gain, unexplained weight loss, others Psychiatric: denies: anxiety, bipolar disorder, depression, hopeless, panic dis order, schizophrenia, sleepless, suicidal, others All Other Systems: Reviewed and Negative Physical Exam General Appearance: Moderate Distress, Normal HEENT: Normal ENT Inspection, Pharynx Normal, TMs Normal Neck: Full Range of Motion, Non-Tender, Normal, Normal Inspection Respiratory: Chest Non-Tender, Lungs Clear, No Accessory Muscle Use, No Respiratory Distress, Normal Breath Sounds Cardiovascular: No Edema, No JVD, No Murmur, No Gallop, Normal Peripheral Pulses, Regular Rate/Rhythm Breast Exam: Deferred Gastrointestinal: No Organomegaly, Non Tender, No Pulsatile Mass, Normal Bowel Sounds, Soft Genitalia: Deferred Pelvic: Deferred Rectal: Deferred Extremities: No calf tenderness, Normal capillary refill, Normal range of motion, Non-tender, Pedal edema Musculoskeletal : Apperance: Normal Neurologic: Alert, glueline worker II-XII nml as Tested, No Motor Deficits, Normal Affect, Normal Mood, No Sensory Deficits Cerebellar Function: NOT DONE Reflexes: NOT DONE Skin: Dry, Normal Color, Warm Peripheral Pulses: 3+ Radial (R), 3+ Radial (L) Lymphatic: No Adenopathy Was a procedure done? Was a procedure done?: No GI differential Dx Differential Diagnosis: Constipation, Diverticular disease, Esophagitis, Gastritis/PUD, Gastroenteritis X-Ray, Labs, Meds, VS Vital Signs Date Time Temp Pulse Resp B/P (MAP) Pulse Ox O2 Delivery O2 Flow Rate FiO2 05/22/24 09:51 97.8 84 18 146/81 (102) 96 05/22/24 09:28 76 Lab Test 05/22/24 10:29 Range/Units White Blood Count 8.6 4.4-10.8 10^3/uL Red Blood Count 4.76 4.5-5.90 10^6/uL Hemoglobin 14.4 13.5-17.5 g/dL Hematocrit 43.1 41.0-53.0 % Mean Corpuscular Volume 90.5 80.0-100.0 fL Mean Corpuscular Hemoglobin 30.2 28.0-32.0 pg Mean Corpuscular Hemoglobin Concent 33.4 32.0-36.0 g/dL Red Cell Distribution Width 16.6 H 11.8-14.3 % Platelet Count 208 140-450 10^3/uL Mean Platelet Volume 8.1 6.9-10.8 fL Neutrophils (%) (Auto) 81.2 H 37.0-80.0 % Lymphocytes (%) (Auto) 10.5 10.0-50.0 % Monocytes (%) (Auto) 7.9 0.0-12.0 % Eosinophils (%) (Auto) 0.2 0.0-7.0 % Basophils (%) (Auto) 0.2 0.0-2.0 % Neutrophils # (Auto) 7.0 1.6-8.6 10 ^3/uL Lymphocytes # (Auto) 0.9 0.4-5.4 10 ^3/uL Monocytes # (Auto) 0.7 0-1.3 10 ^3/uL Eosinophils # (Auto) 0 0-0.8 10 ^3/uL Basophils # (Auto) 0 0-0.2 10 ^3/uL Nucleated Red Blood Cells 0.1 % Sodium Level 135 L 136-145 mmol/L Potassium Level 4.3 3.5-5.1 mmol/L Chloride Level 101 98-107 mmol/L Carbon Dioxide Level 26 20-30 mmol/L Anion Gap 8 5-15 Blood Urea Nitrogen Pending Creatinine Pending Glomerular Filtration Rate Calc Pending BUN/Creatinine Ratio Pending Serum Glucose Pending Calcium Level 10.4 8.7-10.4 mg/dL Troponin I High Sensitivity Pending Patient alert pain Complaining of nausea vomiting. Vitals stable. Answering all questions. WBC within normal limits. Hemoglobin within normal limits. Heart rate within normal limits. Establish intravenous access. Was given fluids pain. Was given Zofran. Abdomen is soft nontender. Explained to the patient. Time of 1ST Reevaluation: 10:05 Reevaluation 1ST: Unchanged Patient Education/Counseling: Diagnosis, Treatment, Prognosis Family Education/Counseling: No Family Present Departure 1 Departure Time of Disposition: 11:12 Impression: Primary Impression: Gastroenteritis Disposition: 01 HOME / SELF CARE / HOMELESS Condition: Good Discharged With: Self Critical Care Note Critical Care Time?: No Stability Stability form required: No I personally scribed for HERACLIO CROWE MD ([email or web address]) on 05/22/24 at 11:00. Electronically submitted by George Duran ([email or web address]). HERACLIO CROWE MD May 22, 2024 11:00
[2024-05-22 11:05] LABS: Blood Urea Nitrogen 16 mg/dL (9-23); Glucose 123 mg/dL (74-106)
[2024-05-22] MEDS: ONDANSETRON HCL 4 MG/2 ML VIAL IV ONE (11:45)
[2024-05-22] MEDS: SODIUM CHLORIDE 0.9% 1,000 ML IV SCH (15:00)
--- NOTE | 2024-05-22 15:29 | DVHHP2 ---
History of Present Illness Reason for Visit: Abdominal pain rule out food poisoning History of Present Illness 74M BIBA w/ prior Hx of hip surgery in 2013 which may be associated to the c/c of ABD pain. Pt reports that he was eating a sandwich and immediately after the pt started to feel epigastric ABD pain which radiated up into the pt chest, causing CP. Pt notes that he did eat the sandwich yesterday on 05/21/24. EMS states that the pt complained of having a [place] and having soft stools. PMHx of AFIB, arthritis, CHF, COPD, High Lipids and HTN. SHx of Tonsillectomy. Upon evaluation, the patient reports mild abdominal distention with pain. The patient is concerned about his symptoms and would like to be further evaluated and treated. The patient will be admitted under hospitalist care to the medical-surgical unit. Denies chills, fever, N/V, SOB, CP or other associated symptoms, modifiers, or recent injuries at this time. Cardiovascular: AFIB, CHF, HTN, hyperipidemia Pulmonary: COPD Past Medical History Arthritis Past Surgical History: Total hip replacement (Right in 2013), Tonsillectomy Family History: None Smoke: No ALCOHOL: none Drugs: None Lives: with Family Domestic Violence: Neg Review of Systems Gastrointestinal: Abdominal Pain, Diarrhea, Other (Distention) Allergies: Coded Allergies: Amiodarone (Verified Allergy, Unknown, 08/11/20) Diphenhydramine (Verified Allergy, Unknown, 08/11/20) Furosemide (Verified Allergy, Unknown, 08/11/20) Ibuprofen (Verified Allergy, Unknown, 08/11/20) Naproxen (Verified Allergy, Unknown, 08/11/20) Sulfa Drugs (Verified Allergy, Unknown, 08/11/20) Medications Current Medications Medications Dose Ordered Sig/Jason Route Start Time Stop Time Status Last Admin Dose Admin Sodium Chloride 1,000 ml @ 75 mls/hr [id number] IV 05/22/24 15:00 UNV Ondansetron HCl 4 mg Q4HP PRN IV 05/22/24 15:00 UNV Enoxaparin Sodium 40 mg DAILY SC 05/23/24 10:00 UNV Acetaminophen 650 mg Q6HP PRN PO 05/22/24 15:00 UNV Allopurinol 100 mg DAILY PO 05/23/24 10:00 UNV Apixaban 5 mg BID PO 05/22/24 22:00 UNV Citalopram Hydrobromide 20 mg DAILY PO 05/23/24 10:00 UNV Patient Own Medication 12.5 mg DAILY PO 05/23/24 10:00 UNV Patient Own Medication 10 mg BID PO 05/22/24 22:00 UNV Patient Own Medication 40 mg DAILY PO 05/23/24 10:00 UNV Exam Vital Signs Vital Signs Date Time Temp Pulse Resp B/P (MAP) Pulse Ox O2 Delivery O2 Flow Rate FiO2 05/22/24 09:51 97.8 84 18 146/81 (102) 96 General Appearance: Alert, Oriented X3, Cooperative, No acute distress HEENT: Atraumatic, PERRLA, Mucous membr. moist/pink Respiratory: Clear to auscultation, Normal air movement Cardiovascular: Normal S1, Normal S2, No murmurs Abdominal: Normal bowel sounds, Soft, No tenderness, No hepatospenomegaly, No masses Extremities: No clubbing, No cyanosis, No edema, Normal pulses, No tenderness/swelling Neuro: Normal speech, Strength at 5/5 X4 ext, Normal tone, Sensation intact, Cranial nerves 3-12 NL, Reflexes 2+ Psych/Mental Status: Mental status NL Labs/Xrays Labs Test 05/22/24 10:29 Range/Units White Blood Count 8.6 4.4-10.8 10^3/uL Red Blood Count 4.76 4.5-5.90 10^6/uL Hemoglobin 14.4 13.5-17.5 g/dL Hematocrit 43.1 41.0-53.0 % Mean Corpuscular Volume 90.5 80.0-100.0 fL Mean Corpuscular Hemoglobin 30.2 28.0-32.0 pg Mean Corpuscular Hemoglobin Concent 33.4 32.0-36.0 g/dL Red Cell Distribution Width 16.6 H 11.8-14.3 % Platelet Count 208 140-450 10^3/uL Mean Platelet Volume 8.1 6.9-10.8 fL Neutrophils (%) (Auto) 81.2 H 37.0-80.0 % Lymphocytes (%) (Auto) 10.5 10.0-50.0 % Monocytes (%) (Auto) 7.9 0.0-12.0 % Eosinophils (%) (Auto) 0.2 0.0-7.0 % Basophils (%) (Auto) 0.2 0.0-2.0 % Neutrophils # (Auto) 7.0 1.6-8.6 10 ^3/uL Lymphocytes # (Auto) 0.9 0.4-5.4 10 ^3/uL Monocytes # (Auto) 0.7 0-1.3 10 ^3/uL Eosinophils # (Auto) 0 0-0.8 10 ^3/uL Basophils # (Auto) 0 0-0.2 10 ^3/uL Nucleated Red Blood Cells 0.1 % Sodium Level 135 L 136-145 mmol/L Potassium Level 4.3 3.5-5.1 mmol/L Chloride Level 101 98-107 mmol/L Carbon Dioxide Level 26 20-30 mmol/L Anion Gap 8 5-15 Blood Urea Nitrogen 16 9-23 mg/dL Creatinine 1.00 0.700-1.30 mg/dL Glomerular Filtration Rate Calc 80 >90 mL/min BUN/Creatinine Ratio 16.0 10.0-20.0 Serum Glucose 123 H 74-106 mg/dL Calcium Level 10.4 8.7-10.4 mg/dL Troponin I High Sensitivity 19 </=54 ng/L Assessment/Plan Assessment/Plan Abdominal pain rule out food poisoning.. Patient developed symptoms after eating a sandwich associated with diarrhea Admit to med surge unit Reviewed CBC within normal limits Reviewed cardiac enzyme negative x1 Reviewed BMP which is normal Order a CT abdomen/pelvis pending IV hydration IV antiemetic as needed C diff pending Ova and parasite pending Stool bacterial culture pending COPD-controlled Albuterol q.2h p.r.n. shortness of breath Right lower extremity existing wound status post soda can falling on leg Patient states that he under care of wound care nurse who comes to his home Consult resolution specialist Hyperlipidemia Lipid panel pending Hypertension-controlled Reconcile home medication Continue antihypertensive agent Continue to monitor BP Atrial fibrillation controlled rate Continue Eliquis as prescribed Morbid obesity TSH pending Lifestyle modification counseling Reconcile home medication DVT prophylaxis PUD prophylaxis not indicated no history of GERD Labs in a.m. Discussed plan of care with the patient in which all questions concerns have been addressed Plan discussed with: Patient My Orders Orders - [facility] Procedure Category Date Status Time Ct Ab Pel Wo Con-No CT 05/22/24 Taken Oral Or Iv 14:54 Admit ADMIT 05/22/24 Transmitted 14:54 Sodium Chloride 0.9% PHA 05/22/24 Logged 15:00 Ondansetron Hcl PHA 05/22/24 Logged (Zofran) 15:00 Enoxaparin Sodium PHA 05/23/24 Logged (Lovenox) 10:00 Complete Blood Count LAB 05/23/24 Verified 04:00 Comprehensive LAB 05/23/24 Verified Metabolic Panel 04:00 Condition: Fair DEANNA 05/22/24 In Process 14:54 Acetaminophen Tablet PHA 05/22/24 Logged (Tylenol Tablet) 15:00 Clear Liq Diet DIET 05/22/24 Transmitted Dinner Bedrest With Bathroom DEANNA 05/22/24 In Process Privileg 14:54 Ova & Parasite Exam NELL 05/22/24 Logged 14:54 Clostridium Difficile NELL 05/22/24 Logged Toxin 14:54 Stool Bacterial NELL 05/22/24 Logged Culture 14:54 * Wound Consult CONS 05/22/24 Transmitted Thyroid Stimulating LAB 05/22/24 In Process Hormone 14:57 Lipid Panel LAB 05/22/24 In Process 14:57 Allopurinol Tablet PHA 05/23/24 Logged (Zyloprim Tablet) 10:00 Citalopram Tablet PHA 05/23/24 Logged (Celexa Tablet) 10:00 (NF) PHA 05/23/24 Logged Hydrochlorothiazide 10:00 (Nf) Lisinopril PHA 05/22/24 Logged 22:00 (Nf) Omeprazole (Sm PHA 05/23/24 Logged Omeprazole) 10:00 Apixaban (Eliquis) PHA 05/22/24 Logged 22:00 Date of Service: May 22, 2024 Billing Provider: [facility]IR[facility] Common Visit Codes: [id number] INP/OBS CARE (HIGH) [facility] FERREIR[facility] SE[employer]IC [employer]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
[2024-05-22 15:41] LABS: Triglycerides 93 mg/dL (< 150)
--- NOTE | 2024-05-22 15:41 | DVH ---
Exam: CT CT AB PEL WO CON-NO ORAL OR IV History: abdominal pain Comparison Study: None available at time of dictation. TECHNIQUE: Multidetector CT of the abdomen was performed from lung bases to pubic symphysis. Imaging was performed without IV contrast. Axial, coronal and sagittal multiplanar reformats were obtained fr om the axial data set by the technologist. Radiation Dose Information: CT Dose: CTDI volume is 20.83 mGy. Dose-length product is 980.5 mGy*cm FINDINGS: Evaluation of solid organs is limited due to lack of intravenous contrast use. Findings: Lung Bases: No acute or significant lung base finding. Normal heart size. Scattered coronary artery calcifications. No pleural or pericardial effusion. Liver: The liver is normal in size. No focal lesions. 14 15 mm calcified granuloma in the dome of the liver. Gallbladder and Biliary Tree: Cholelithiasis. Spleen: Small calcified granuloma in the spleen. Pancreas: The pancreas is grossly normal in appearance. Adrenal Glands: Unremarkable Kidneys: Multiple bilateral renal calculi nonobstructing largest measures 6-7 mm on the right kidney, and 7-8 mm calculi left kidney nonobstructing Bladder: Grossly unremarkable for degree of distention. Bowel: Postop changes stomach with fluid distended stomach and fluid dilated small bowel findings may represent small-bowel obstruction.. The appendix is not visualized; however, no secondary findings of acute appendicitis identified. Ascites: Absent Lymphadenopathy: No mesenteric, retroperitoneal or periportal lymphadenopathy. Abdominal Wall and Mesentery: Unremarkable. Vasculature: The visualized abdominal aorta is normal in size and caliber. Evaluation of abdominal a nd pelvic vessels is limited due to lack of intravenous contrast. Pelvic Organs: Unremarkable Musculoskeletal: No aggressive focal bony lesions, acute fractures or dislocation. Right hip prosthes is in place. Soft tissues: Unremarkable IMPRESSION: 1. Cholelithiasis with the gallbladder distended. 2. Postop changes to the stomach with a fluid-filled distended stomach and dilated fluid-filled small bowel findings suggest small bowel obstruction. 3. Multiple bilateral nonobstructing renal calculi. 4. Prosthesis in the right hip. Radiation optimization: All CT scans at this facility use at least one of these dose optimization aryan hniques: automated exposure control mA and/or kV adjustment per patient size (includes targeted exam s where dose is matched to clinical indication) or iterative reconstruction.
[2024-05-22 15:42] LABS: LDL Cholesterol 80 mg/dL (< 100)
[2024-05-22 15:43] LABS: Cholesterol 144 mg/dL (< 200); HDL Cholesterol 48 mg/dL (40-59)
[2024-05-22 17:54] VITALS: PULSE 104; RESP 20; O2SAT 98
[2024-05-22 18:20] VITALS: BP 133/75; PULSE 109; PULSE 89; RESP 18; RESP 20; TEMP 97.5; O2SAT 96; O2SAT 99
[2024-05-22 19:03] VITALS: BP 133/75; PULSE 89; RESP 18; TEMP 97.5; O2SAT 96
[2024-05-22 21:00] VITALS: BP 163/76; PULSE 87; RESP 16; TEMP 98.7; O2SAT 98
[2024-05-22] MEDS: APIXABAN 5 MG TAB PO SCH (21:40)
[2024-05-22] MEDS: LISINOPRIL 5 MG TAB PO SCH (21:40)
[2024-05-22] MEDS: ONDANSETRON HCL 4 MG/2 ML VIAL IV PRN (22:47)
[2024-05-23] VITALS (7 sets, daily range): BP systolic 91–165; BP diastolic 56–71; PULSE 64–111; RESP 17–23; TEMP 97.9–99.6; O2SAT 92–97
[2024-05-23] MEDS ORDERED: DILT60TA PO (01:16)
[2024-05-23] MEDS ORDERED: DOCU-94 PO (01:16)
[2024-05-23] MEDS ORDERED: OMEP20TA PO (01:16)
[2024-05-23] MEDS ORDERED: ATOR20TA PO (01:16)
[2024-05-23] MEDS ORDERED: PSEU120T46 PO (01:16)
[2024-05-23] MEDS ORDERED: ALLO300T2 PO (01:16)
[2024-05-23] MEDS ORDERED: CETI10TA2 PO (01:16)
[2024-05-23] MEDS ORDERED: DULO60CA41 PO (01:16)
[2024-05-23] MEDS ORDERED: TAMS0.4C39 PO (01:16)
[2024-05-23] MEDS: HYDROcodone-ACET 5/325MG TAB PO PRN (02:07)
[2024-05-23 07:40] LABS: Basophils # (auto) 0 10 ^3/uL (0-0.2); Basophils % (auto) 0.3 % (0.0-2.0); Eosinophils # (auto) 0 10 ^3/uL (0-0.8); Eosinophils % (auto) 0.2 % (0.0-7.0); Hematocrit 38.5 % (41.0-53.0); Hemoglobin 13.3 g/dL (13.5-17.5); Lymphocytes # (auto) 0.9 10 ^3/uL (0.4-5.4); Lymphocytes % (auto) 13.3 % (10.0-50.0); Mean Corpuscular Hgb Conc. 34.5 g/dL (32.0-36.0); Monocytes # (auto) 0.9 10 ^3/uL (0-1.3); Monocytes % (auto) 13.3 % (0.0-12.0); Neutrophils # (auto) 4.9 10 ^3/uL (1.6-8.6); Neutrophils % (auto) 72.9 % (37.0-80.0); Nucleated Red Blood Cells % 0.1 %; Platelet Count (auto) 186 10^3/uL (140-450); Red Blood Cells 4.28 10^6/uL (4.5-5.90); Red Cell Distribution Width 16.5 % (11.8-14.3); White Blood Cell 6.8 10^3/uL (4.4-10.8)
[2024-05-23 07:46] LABS: Alanine Aminotransferase 14 U/L (7-40); Alkaline Phosphatase 136 U/L (46-116); Anion Gap 8 (5-15); BUN/Creatinine Ratio 16.7 (10.0-20.0); Blood Urea Nitrogen 17 mg/dL (9-23); Calcium 9.9 mg/dL (8.7-10.4); Carbon Dioxide 26 mmol/L (20-30); Chloride 101 mmol/L (98-107); Glucose 120 mg/dL (74-106); Potassium 4.4 mmol/L (3.5-5.1); Sodium 135 mmol/L (136-145)
[2024-05-23 07:47] LABS: Albumin 4.1 g/dL (3.2-4.8); Aspartate Aminotransferase 18 U/L (13-40); Bilirubin, Total 0.7 mg/dL (0.2-1.0); Total Protein 6.5 g/dL (5.7-8.2)
[2024-05-23] MEDS: PANTOPRAZOLE 40 MG TAB PO SCH (09:39)
[2024-05-23] MEDS: CITALOPRAM HYDROBR 20 MG TAB PO SCH (09:39)
[2024-05-23] MEDS: hydroCHLOROthiazide 25 MG TAB PO SCH (09:39)
[2024-05-23] MEDS: ALLOPURINOL 100 MG TAB PO SCH (09:40)
[2024-05-23] MEDS ORDERED: ENOXAPARIN SOD 40 MG/0.4 ML SYRINGE SC SCH (10:00)
[2024-05-23] MEDS ORDERED: HYDROmorphone HCL 2 MG/ML VL/or syr IV PRN (12:00)
--- NOTE | 2024-05-23 12:47 | DVHINCON2 ---
Date of service: May 23, 2024 Family History: Alcoholism Cancer Cancer of colon Family history: Arthritis Family history: Asthma Family history: Blood disorder Family history: Cardiovascular disease Family history: Depression (situation) Family history: Diabetes mellitus Family history: Glaucoma Family history: Hypercholesterolemia (situation) Family history: Hypertension Family history: Thyroid disorder Malignant melanoma Malignant neoplasm of ovary Seizure disorder (situation) Stroke No Family History of: Family history: Alzheimer's disease Family history: Congenital anomaly Family history: Coronary thrombosis Family history: Diabetes in Family history: Osteoporosis Family history: Suicide (situation) Ischemic heart disease Malignant neoplasm of breast Malignant neoplasm of lung Prostate cancer Renal stone Allergies: Coded Allergies: Amiodarone (Verified Allergy, Unknown, 08/11/20) Diphenhydramine (Verified Allergy, Unknown, 08/11/20) Furosemide (Verified Allergy, Unknown, 08/11/20) Ibuprofen (Verified Allergy, Unknown, 08/11/20) Naproxen (Verified Allergy, Unknown, 08/11/20) Sulfa Drugs (Verified Allergy, Unknown, 08/11/20) Home Meds Active Scripts Prednisone (Prednisone) 20 Mg Tab, 60 MG PO DAILY for 3 Days, #9 MG Prov:REILLY REYES DO 12/13/21 Apixaban Base (ELIQUIS) 5 Mg Tab, 5 MG PO BID, #60 TAB Prov:JUANY ROBERTS MD 02/07/20 Metoprolol Tartrate (Lopressor) 25 Mg Tb, 12.5 MG PO BID, #30 TAB Check blood pressure and pulse prior to dose. Hold medication if systolic blood pressure is below 120 or pulse less than 70 Prov:JUANY ROBERTS MD 02/07/20 Reported Medications Allopurinol (Allopurinol) 300 Mg Tab, 300 MG PO Q12HR for 30 Days, MG 05/23/24 Duloxetine Hcl (Cymbalta) 60 Mg Cap, 1 CAP PO DAILY, #90 CAP 3 Refills 05/23/24 Omeprazole (Gnp Omeprazole) 20 Mg Tab, 1 TAB PO DAILY, #90 TAB 1 Refill 05/23/24 Tamsulosin Hcl (Tamsulosin Hcl) 0.4 Mg Cap, 0.4 MG PO QPM for 30 Days, MG 05/23/24 Diltiazem Hcl (Diltiazem Hcl) 60 Mg Tab, 60 MG PO BID for 30 Days, MG 05/23/24 Atorvastatin Calcium (Lipitor) 20 Mg Tab, 1 TAB PO DAILY, #90 TAB 1 Refill 05/23/24 Docusate Sodium (Colace) 100 Mg Cap, 1 CAP PO BID, #30 CAP 05/23/24 Pseudoephedrine HCl ([facility] 12 Hour Nasal [place]) 120 Mg Tab, 60 MG PO BID, TAB 05/23/24 Cetirizine Hcl (Kls Aller-[place]) 10 Mg Tab, 1 TAB PO DAILY, #30 TAB 3 Refills 05/23/24 Metoprolol Tartrate (Metoprolol Tartrate) 25 Mg Tab, 10 MG PO BID for 30 Days, MG 02/21/20 Lisinopril (Lisinopril) 10 Mg Tab, 10 MG PO BID for 30 Days, MG 02/21/20 Diazepam (Diazepam) 10 Mg Tab, 30 MG PO BID, TAB 02/21/20 Hydrochlorothiazide (Hydrochlorothiazide) 12.5 Mg Cap, 12.5 MG PO DAILY for 30 Days, MG 02/21/20 Nortriptyline Hcl (PAMELOR CAPSULE) 25 Mg Cp, 50 MG PO HS, CP 03/27/14 Allopurinol (Zyloprim) 100 Mg Tab 01/24/13 Omeprazole (Sm Omeprazole) 20 Mg Tab, 40 MG PO DAILY 01/24/13 Docusate Calcium (Sb Stool Softener) 240 Mg Cap, PO 01/24/13 Nitroglycerin (Nitroglycerin) 0.4 Mg Sl, DAILYP 01/24/13 Trazodone Hcl (Trazodone Hcl) 100 Mg Tab, PO HS 01/24/13 Atorvastatin Calcium (ATORVASTATIN CALCIUM) 40 Mg Tab, PO HS 01/24/13 Senna (Sennosides) 8.6 Mg Tab, PO DAILYP 01/24/13 Potassium Chloride (K-Tabs) 10 Meq Tab, PO DAILY 01/24/13 Multiple Vitamin (Mvi Tab) 1 Tab Tb 01/13/12 [place]-3 Fatty Acids (Fish Oil) 1,000 Mg Cap 01/13/12 Epinephrine Hcl (Anaphylaxis) (Epipen) 0.3 Mg Inj 01/13/12 Citalopram Hydrobromide (Citalopram Hydrobromide) 20 Mg Tab 01/13/12 Cholecalciferol (D 400) 400 Unit Chw 01/13/12 Albuterol Sulfate (Albuterol Sulfate) 0.5 % Neb 01/13/12 Current Medications Current Medications Medications (Trade) Dose Ordered Sig/Jason Route PRN Reason Start Time Stop Time Status Last Admin Sodium Chloride 1,000 ml @ 75 mls/hr [id number] IV 05/22/24 15:00 05/23/24 04:20 Ondansetron HCl (Zofran) 4 mg Q4HP PRN IV NAUSEA / VOMITING 05/22/24 15:00 05/22/24 22:47 Enoxaparin Sodium (Lovenox) 40 mg DAILY SC 05/23/24 10:00 Hold Acetaminophen (Tylenol Tablet) 650 mg Q6HP PRN PO PAIN SCALE 1-3 OR TEMP>100.4 05/22/24 15:00 Allopurinol (Zyloprim Tablet) 100 mg DAILY PO 05/23/24 10:00 Apixaban (Eliquis) 5 mg BID PO 05/22/24 22:00 05/22/24 21:40 Citalopram Hydrobromide (CeleXA TABLET) 20 mg DAILY PO 05/23/24 10:00 Hydrochlorothiazide (hydroCHLOROthiazide TABLET) 12.5 mg DAILY PO 05/23/24 10:00 Lisinopril (Zestril Tablet) 10 mg BID PO 05/22/24 22:00 05/22/24 21:40 Pantoprazole Sodium (Protonix Tablet) 40 mg DAILY PO 05/23/24 10:00 Acetaminophen/ Hydrocodone Bitart ([place] 5/325MG Tab) 1 tab Q4HPRN PRN PO MODERATE PAIN (4-6 PAIN SCALE) 05/22/24 22:15 05/23/24 02:07 Hydralazine HCl (Apresoline Injection) 10 mg Q6HP PRN IV SBP>150 05/23/24 05:00 Hydromorphone HCl (Dilaudid Injection) 0.5 mg Q3HPRN PRN IV SEVERE PAIN (7-10 PAIN SCALE) 05/23/24 12:00 Acetaminophen/ Hydrocodone Bitart ([place] 5/325MG Tab) 1 tab Q4HPRN PRN PO MODERATE PAIN (4-6 PAIN SCALE) 05/23/24 12:00 Prochlorperazine Edisylate (Compazine Inj) 10 mg Q6HP PRN IV NAUSEA OR VOMITING 05/23/24 12:00 Vital Signs Vital Signs Date Time Temp Pulse Resp B/P (MAP) Pulse Ox O2 Delivery O2 Flow Rate FiO2 05/23/24 09:00 98.3 100 20 127/62 (83) 97 98.3 05/23/24 08:00 Nasal Cannula* 2 28 Labs/Diagnostic Data Labs Test 05/23/24 06:56 05/22/24 10:29 Range/Units White Blood Count 6.8 4.4-10.8 10^3/uL Red Blood Count 4.28 L 4.5-5.90 10^6/uL Hemoglobin 13.3 L 13.5-17.5 g/dL Hematocrit 38.5 #L 41.0-53.0 % Mean Corpuscular Volume 90.0 80.0-100.0 fL Mean Corpuscular Hemoglobin 31.0 28.0-32.0 pg Mean Corpuscular Hemoglobin Concent 34.5 32.0-36.0 g/dL Red Cell Distribution Width 16.5 H 11.8-14.3 % Platelet Count 186 140-450 10^3/uL Mean Platelet Volume 8.5 6.9-10.8 fL Neutrophils (%) (Auto) 72.9 37.0-80.0 % Lymphocytes (%) (Auto) 13.3 10.0-50.0 % Monocytes (%) (Auto) 13.3 H 0.0-12.0 % Eosinophils (%) (Auto) 0.2 0.0-7.0 % Basophils (%) (Auto) 0.3 0.0-2.0 % Neutrophils # (Auto) 4.9 1.6-8.6 10 ^3/uL Lymphocytes # (Auto) 0.9 0.4-5.4 10 ^3/uL Monocytes # (Auto) 0.9 0-1.3 10 ^3/uL Eosinophils # (Auto) 0 0-0.8 10 ^3/uL Basophils # (Auto) 0 0-0.2 10 ^3/uL Nucleated Red Blood Cells 0.1 % Sodium Level 135 L 136-145 mmol/L Potassium Level 4.4 3.5-5.1 mmol/L Chloride Level 101 98-107 mmol/L Carbon Dioxide Level 26 20-30 mmol/L Anion Gap 8 5-15 Blood Urea Nitrogen 17 9-23 mg/dL Creatinine 1.02 0.700-1.30 mg/dL Glomerular Filtration Rate Calc 78 >90 mL/min BUN/Creatinine Ratio 16.7 10.0-20.0 Serum Glucose 120 H 74-106 mg/dL Calcium Level 9.9 8.7-10.4 mg/dL Total Bilirubin 0.7 0.2-1.0 mg/dL Aspartate Amino Transferase (AST) 18 13-40 U/L Alanine Aminotransferase (ALT) 14 7-40 U/L Alkaline Phosphatase 136 H 46-116 U/L Total Protein 6.5 5.7-8.2 g/dL Albumin 4.1 3.2-4.8 g/dL Troponin I High Sensitivity 19 </=54 ng/L Triglycerides Level 93 < 150 mg/dL Cholesterol Level 144 < 200 mg/dL LDL Cholesterol 80 < 100 mg/dL HDL Cholesterol 48 40-59 mg/dL Thyroid Stimulating Hormone (TSH) 3.28 0.55-4.78 uIU/mL Assessment [id number] R/O SBO S/P GASTRIC BYPASS SURGERY KEEP NPO NG CLOSE OBSERVATION CONSIDER GASTROGRAFIN STUDY INDICATED TO DETERMINE THE NEED FOR SURGERY IF INDICATED MAY NEED TRANSFER TO HIGHER LEVEL OF CARE Plan discussed with: Patient MARTHA ALVARES MD May 23, 2024 12:47
[2024-05-23] MEDS: PROCHLORPERAZINE EDISYLATE 5 MG/ML 2ML VIAL IV PRN (12:56)
--- NOTE | 2024-05-23 13:23 | DVHPN2 ---
Progress Note - Dictate Date Seen: May 23, 2024 Medical Necessity Reason Pt with a Central, PICC or Fol: No vital signs Vital Sign Date Time Temp Pulse Resp B/P (MAP) Pulse Ox O2 Delivery O2 Flow Rate FiO2 05/23/24 09:00 98.3 100 20 127/62 (83) 97 98.3 05/23/24 08:00 Nasal Cannula* 2 28 Total Intake and Output 05/22/24 05/22/24 05/23/24 15:00 23:00 07:00 Intake Total 1000 ml 500 ml Output Total 1025 ml Balance 1000 ml -525 ml medications Current Medications Medications Dose Ordered Sig/Jason Route Start Time Stop Time Status Last Admin Dose Admin Sodium Chloride 1,000 ml @ 75 mls/hr [id number] IV 05/22/24 15:00 05/23/24 04:20 75 MLS/HR Ondansetron HCl 4 mg Q4HP PRN IV 05/22/24 15:00 05/22/24 22:47 4 MG Acetaminophen 650 mg Q6HP PRN PO 05/22/24 15:00 Allopurinol 100 mg DAILY PO 05/23/24 10:00 Citalopram Hydrobromide 20 mg DAILY PO 05/23/24 10:00 Lisinopril 10 mg BID PO 05/22/24 22:00 05/22/24 21:40 10 MG Pantoprazole Sodium 40 mg DAILY PO 05/23/24 10:00 Acetaminophen/ Hydrocodone Bitart 1 tab Q4HPRN PRN PO 05/22/24 22:15 05/23/24 02:07 1 TAB Hydralazine HCl 10 mg Q6HP PRN IV 05/23/24 05:00 Hydromorphone HCl 0.5 mg Q3HPRN PRN IV 05/23/24 12:00 Acetaminophen/ Hydrocodone Bitart 1 tab Q4HPRN PRN PO 05/23/24 12:00 Prochlorperazine Edisylate 10 mg Q6HP PRN IV 05/23/24 12:00 05/23/24 12:56 10 MG Atorvastatin Calcium 20 mg DAILY PO 05/24/24 10:00 Diltiazem HCl 60 mg BID PO 05/23/24 22:00 Metoprolol Tartrate 12.5 mg BID PO 05/23/24 22:00 Nortriptyline HCl 50 mg HS PO 05/23/24 22:00 Tamsulosin HCl 0.4 mg QPM PO 05/23/24 18:00 Enoxaparin Sodium 100 mg Q12HR SC 05/23/24 22:00 UNV Amino Acids 0 ml @ 0 mls/hr PER PHARMACY IV 05/23/24 13:30 UNV objective General Appearance: alert, no distress HEENT: EOMI, PERRLA, normal external inspect of ears, no icterus, no nasal drainage Neck: no carotid bruit, no jugular venous distention (JVD), no lymphadenopathy Chest: normal thorax Respiratory: clear to auscultation, normal air movement Cardiovascular: regular rate and rhythm, no diastolic murmur, no jugular venous distention (JVD), no rub, no systolic murmur Abdominal: soft, no hepatomegaly, no mass, no splenomegaly, no tenderness Genitourinary: grossly normal external Musculoskeletal: no joint tenderness, no swelling Extremities: normal pulses, no calf tenderness, no clubbing, no cyanosis, no edema Skin: no bruising, no jaundice, no rash Neurological: alert, No focal deficit laboratory and microbiology Laboratory Tests 05/23/24 06:56 Test 05/23/24 06:56 Range/Units Serum Glucose 120 H 74-106 mg/dL Problem List 1. Small bowel obstruction Monitor, surgical consult, GI consult, NPO 2. HLD Monitor 3. Persistent atrial fibrillation Monitor, full dose Lovenox 4. Obesity Monitor 5. Hx gastric bypass Monitor 6. Benign essential HTN Monitor, antihypertensives 7. Gallstones Monitor, surgical consult, GI consult, NPO, HIDA scan Assessment/Plan Subjective Patient is awake and alert. Objective Patient was admitted for abdominal pain most likely related to small bowel obstruction and possible acute cholecystitis. HIDA scan has been ordered. There was gallbladder wall thickening noted on imaging. Patient states he has a history of Dave-en-Y gastric bypass in 2008 and a history of a small bowel obstruction in the past. NG tube was placed to right naris. Waiting for imaging to confirm placement. Clinimix has been ordered for nutrition and general surgery has been consulted to evaluate patient. Patient also has a history of a left kidney stone. He states he has had interventions at least 8 times and they have not been able to get rid of his kidney stones. Plan HIDA scan to rule out acute cholecystitis. General surgery and GI consult. Start Clinimix for nutrition. Send urinalysis. Continue pain medication as needed. Plan discussed with: Patient, Other TETO CRAMER NP May 23, 2024 13:23
[2024-05-23] MEDS ORDERED: CLINIMIX PER PHARMACY 0 ML IV SCH (13:30)
--- NOTE | 2024-05-23 14:09 | DVHINCON2 ---
Date of service: May 23, [address] ewing Reason for Consultation Abdominal pain nausea vomiting History of Present Illness This 74-year-old male presented to complaints of abdominal pain in epigastrium and upper quadrants with nausea vomiting unable to keep anything down He had eaten a sandwich and immediately after felt severe epigastric pain which radiated into the chest as well as both upper quadrants. Patient has been chronic does need gagging as well as having problems with swallowing any In the ER CT scan done showed gastric dilation and obstruction and possible gallstones Patient has history of gastric bypass and in 2008 and changed into Dave-en-Y in 2013 because of gastric obstruction Also has got atrial fibrillation congestive heart failure hypertension and is on blood thinners Eliquis Past Medical History Atrial fibrillation congestive heart failure hypertension hyperlipidemia COPD arthritis Past Surgical History Total hip replacement tonsillectomy Dave-en-Y in 2013 and before that gastric bypass in 2008 Family History: Alcoholism Cancer Cancer of colon Family history: Arthritis Family history: Asthma Family history: Blood disorder Family history: Cardiovascular disease Family history: Depression (situation) Family history: Diabetes mellitus Family history: Glaucoma Family history: Hypercholesterolemia (situation) Family history: Hypertension Family history: Thyroid disorder Malignant melanoma Malignant neoplasm of ovary Seizure disorder (situation) Stroke No Family History of: Family history: Alzheimer's disease Family history: Congenital anomaly Family history: Coronary thrombosis Family history: Diabetes in Family history: Osteoporosis Family history: Suicide (situation) Ischemic heart disease Malignant neoplasm of breast Malignant neoplasm of lung Prostate cancer Renal stone Family History Noncontributory Social History Denies smoking or drinking Allergies: Coded Allergies: Amiodarone (Verified Allergy, Unknown, 08/11/20) Diphenhydramine (Verified Allergy, Unknown, 08/11/20) Furosemide (Verified Allergy, Unknown, 08/11/20) Ibuprofen (Verified Allergy, Unknown, 08/11/20) Naproxen (Verified Allergy, Unknown, 08/11/20) Sulfa Drugs (Verified Allergy, Unknown, 08/11/20) Home Meds Active Scripts Prednisone (Prednisone) 20 Mg Tab, 60 MG PO DAILY for 3 Days, #9 MG Prov:REILLY REYES DO 12/13/21 Apixaban Base (ELIQUIS) 5 Mg Tab, 5 MG PO BID, #60 TAB Prov:JUANY ROBERTS MD 02/07/20 Metoprolol Tartrate (Lopressor) 25 Mg Tb, 12.5 MG PO BID, #30 TAB Check blood pressure and pulse prior to dose. Hold medication if systolic blood pressure is below 120 or pulse less than 70 Prov:JUANY ROBERTS MD 02/07/20 Reported Medications Allopurinol (Allopurinol) 300 Mg Tab, 300 MG PO Q12HR for 30 Days, MG 05/23/24 Duloxetine Hcl (Cymbalta) 60 Mg Cap, 1 CAP PO DAILY, #90 CAP 3 Refills 05/23/24 Omeprazole (Gnp Omeprazole) 20 Mg Tab, 1 TAB PO DAILY, #90 TAB 1 Refill 05/23/24 Tamsulosin Hcl (Tamsulosin Hcl) 0.4 Mg Cap, 0.4 MG PO QPM for 30 Days, MG 05/23/24 Diltiazem Hcl (Diltiazem Hcl) 60 Mg Tab, 60 MG PO BID for 30 Days, MG 05/23/24 Atorvastatin Calcium (Lipitor) 20 Mg Tab, 1 TAB PO DAILY, #90 TAB 1 Refill 05/23/24 Docusate Sodium (Colace) 100 Mg Cap, 1 CAP PO BID, #30 CAP 05/23/24 Pseudoephedrine HCl ([facility] 12 Hour Nasal [place]) 120 Mg Tab, 60 MG PO BID, TAB 05/23/24 Cetirizine Hcl (Kls Aller-Maria Teresa) 10 Mg Tab, 1 TAB PO DAILY, #30 TAB 3 Refills 05/23/24 Metoprolol Tartrate (Metoprolol Tartrate) 25 Mg Tab, 10 MG PO BID for 30 Days, MG 02/21/20 Lisinopril (Lisinopril) 10 Mg Tab, 10 MG PO BID for 30 Days, MG 02/21/20 Diazepam (Diazepam) 10 Mg Tab, 30 MG PO BID, TAB 02/21/20 Hydrochlorothiazide (Hydrochlorothiazide) 12.5 Mg Cap, 12.5 MG PO DAILY for 30 Days, MG 02/21/20 Nortriptyline Hcl (PAMELOR CAPSULE) 25 Mg Cp, 50 MG PO HS, CP 03/27/14 Allopurinol (Zyloprim) 100 Mg Tab 01/24/13 Omeprazole (Sm Omeprazole) 20 Mg Tab, 40 MG PO DAILY 01/24/13 Docusate Calcium (Sb Stool Softener) 240 Mg Cap, PO 01/24/13 Nitroglycerin (Nitroglycerin) 0.4 Mg Sl, DAILYP 01/24/13 Trazodone Hcl (Trazodone Hcl) 100 Mg Tab, PO HS 01/24/13 Atorvastatin Calcium (ATORVASTATIN CALCIUM) 40 Mg Tab, PO HS 01/24/13 Senna (Sennosides) 8.6 Mg Tab, PO DAILYP 01/24/13 Potassium Chloride (K-Tabs) 10 Meq Tab, PO DAILY 01/24/13 Multiple Vitamin (Mvi Tab) 1 Tab Tb 01/13/12 [place]-3 Fatty Acids (Fish Oil) 1,000 Mg Cap 01/13/12 Epinephrine Hcl (Anaphylaxis) (Epipen) 0.3 Mg Inj 01/13/12 Citalopram Hydrobromide (Citalopram Hydrobromide) 20 Mg Tab 01/13/12 Cholecalciferol (D 400) 400 Unit Chw 01/13/12 Albuterol Sulfate (Albuterol Sulfate) 0.5 % Neb 01/13/12 Current Medications Current Medications Medications (Trade) Dose Ordered Sig/Jason Route PRN Reason Start Time Stop Time Status Last Admin Sodium Chloride 1,000 ml @ 75 mls/hr [id number] IV 05/22/24 15:00 05/23/24 04:20 Ondansetron HCl (Zofran) 4 mg Q4HP PRN IV NAUSEA / VOMITING 05/22/24 15:00 05/22/24 22:47 Enoxaparin Sodium (Lovenox) 40 mg DAILY SC 05/23/24 10:00 05/23/24 13:20 DC Acetaminophen (Tylenol Tablet) 650 mg Q6HP PRN PO PAIN SCALE 1-3 OR TEMP>100.4 05/22/24 15:00 Allopurinol (Zyloprim Tablet) 100 mg DAILY PO 05/23/24 10:00 Apixaban (Eliquis) 5 mg BID PO 05/22/24 22:00 05/23/24 13:20 DC 05/22/24 21:40 Citalopram Hydrobromide (CeleXA TABLET) 20 mg DAILY PO 05/23/24 10:00 Hydrochlorothiazide (hydroCHLOROthiazide TABLET) 12.5 mg DAILY PO 05/23/24 10:00 05/23/24 13:20 DC Lisinopril (Zestril Tablet) 10 mg BID PO 05/22/24 22:00 05/22/24 21:40 Pantoprazole Sodium (Protonix Tablet) 40 mg DAILY PO 05/23/24 10:00 Acetaminophen/ Hydrocodone Bitart ([place] 5/325MG Tab) 1 tab Q4HPRN PRN PO MODERATE PAIN (4-6 PAIN SCALE) 05/22/24 22:15 05/23/24 02:07 Hydralazine HCl (Apresoline Injection) 10 mg Q6HP PRN IV SBP>150 05/23/24 05:00 Hydromorphone HCl (Dilaudid Injection) 0.5 mg Q3HPRN PRN IV SEVERE PAIN (7-10 PAIN SCALE) 05/23/24 12:00 05/23/24 13:35 DC Acetaminophen/ Hydrocodone Bitart ([place] 5/325MG Tab) 1 tab Q4HPRN PRN PO MODERATE PAIN (4-6 PAIN SCALE) 05/23/24 12:00 Prochlorperazine Edisylate (Compazine Inj) 10 mg Q6HP PRN IV NAUSEA OR VOMITING 05/23/24 12:00 05/23/24 12:56 Atorvastatin Calcium (Lipitor) 20 mg DAILY PO 05/24/24 10:00 Diltiazem HCl (Cardizem Immediate Release Tab) 60 mg BID PO 05/23/24 22:00 Metoprolol Tartrate (Lopressor Tablet) 12.5 mg BID PO 05/23/24 22:00 Nortriptyline HCl (Pamelor Capsule) 50 mg HS PO 05/23/24 22:00 Tamsulosin HCl (Flomax) 0.4 mg QPM PO 05/23/24 18:00 Enoxaparin Sodium (Lovenox) 100 mg Q12HR SC 05/23/24 22:00 Amino Acids 0 ml @ 0 mls/hr PER PHARMACY IV 05/23/24 13:30 UNV Morphine Sulfate 4 mg Q4HPRN PRN IV SEVERE PAIN (7-10 PAIN SCALE) 05/23/24 13:45 Review of Systems Unremarkable Vital Signs Vital Signs Date Time Temp Pulse Resp B/P (MAP) Pulse Ox O2 Delivery O2 Flow Rate FiO2 05/23/24 09:00 98.3 100 20 127/62 (83) 97 98.3 05/23/24 08:00 Nasal Cannula* 2 28 Physical Exam Moderate built and nourished male slightly on the apprehensive side HEENT examination no pallor no icterus Neck is supple Lungs clear Cardiovascular unremarkable Soft with some fullness in the epigastrium and both upper quadrants no rigidity no guarding no masses Bowel sounds normal Extremities no edema Labs/Diagnostic Data Labs Test 05/23/24 06:56 05/22/24 10:29 Range/Units White Blood Count 6.8 4.4-10.8 10^3/uL Red Blood Count 4.28 L 4.5-5.90 10^6/uL Hemoglobin 13.3 L 13.5-17.5 g/dL Hematocrit 38.5 #L 41.0-53.0 % Mean Corpuscular Volume 90.0 80.0-100.0 fL Mean Corpuscular Hemoglobin 31.0 28.0-32.0 pg Mean Corpuscular Hemoglobin Concent 34.5 32.0-36.0 g/dL Red Cell Distribution Width 16.5 H 11.8-14.3 % Platelet Count 186 140-450 10^3/uL Mean Platelet Volume 8.5 6.9-10.8 fL Neutrophils (%) (Auto) 72.9 37.0-80.0 % Lymphocytes (%) (Auto) 13.3 10.0-50.0 % Monocytes (%) (Auto) 13.3 H 0.0-12.0 % Eosinophils (%) (Auto) 0.2 0.0-7.0 % Basophils (%) (Auto) 0.3 0.0-2.0 % Neutrophils # (Auto) 4.9 1.6-8.6 10 ^3/uL Lymphocytes # (Auto) 0.9 0.4-5.4 10 ^3/uL Monocytes # (Auto) 0.9 0-1.3 10 ^3/uL Eosinophils # (Auto) 0 0-0.8 10 ^3/uL Basophils # (Auto) 0 0-0.2 10 ^3/uL Nucleated Red Blood Cells 0.1 % Sodium Level 135 L 136-145 mmol/L Potassium Level 4.4 3.5-5.1 mmol/L Chloride Level 101 98-107 mmol/L Carbon Dioxide Level 26 20-30 mmol/L Anion Gap 8 5-15 Blood Urea Nitrogen 17 9-23 mg/dL Creatinine 1.02 0.700-1.30 mg/dL Glomerular Filtration Rate Calc 78 >90 mL/min BUN/Creatinine Ratio 16.7 10.0-20.0 Serum Glucose 120 H 74-106 mg/dL Calcium Level 9.9 8.7-10.4 mg/dL Total Bilirubin 0.7 0.2-1.0 mg/dL Aspartate Amino Transferase (AST) 18 13-40 U/L Alanine Aminotransferase (ALT) 14 7-40 U/L Alkaline Phosphatase 136 H 46-116 U/L Total Protein 6.5 5.7-8.2 g/dL Albumin 4.1 3.2-4.8 g/dL Troponin I High Sensitivity 19 </=54 ng/L Triglycerides Level 93 < 150 mg/dL Cholesterol Level 144 < 200 mg/dL LDL Cholesterol 80 < 100 mg/dL HDL Cholesterol 48 40-59 mg/dL Thyroid Stimulating Hormone (TSH) 3.28 0.55-4.78 uIU/mL Assessment 74-year-old with history of eating a sandwich and having abdominal pains nausea anorexia pain radiating to the chest as well as the both upper quadrants To gastric bypass with revision in 2013 by with Dave-en-Y Patient is on Eliquis for atrial fibrillation, has congestive heart failure and hypertension and hyperlipidemia CT scan showed gastric outlet obstruction with gastric distention gallbladder stones LFTs are normal Patient is seen been seen by the surgeon who has recommended NG tube and decompression Clinical impression gastric outlet obstruction status post Dave-en-Y for gastric bypass Plan/Recommendation NG suction conservative treatment surgically we will recommend a Gastrografin studies Patient is on Eliquis and may need an endoscopy may have to stop the Eliquis also IV evaluate the area endoscopically later After the areas evaluated by Gastrografin studies etc. We will recommend TPN if possible We will treat also with PPIs and NG decompression for now Thank you Dr. Janusz Gonzalez discussed with: Patient CHIO CHAPIN MD May 23, 2024 14:09
--- NOTE | 2024-05-23 14:10 | DVH ---
EXAM: XY CHEST PORTABLE TECHNIQUE: Single frontal chest radiograph CLINICAL HISTORY: NGT PLACEMENT COMPARISON: CHEST PORTABLE on DOS: 02/21/20, CHEST PORTABLE on DOS: 02/05/20 Findings/Impression: Frontal chest radiograph demonstrates no acute osseous or superficial soft tissue abnormalities. Enteric tube visualized overlying the plane of the stomach. The trachea is midline. The cardiac silhouette and mediastinum are within normal limits. No pneumothorax, pleural effusions, or consolidations. Partially visualized gaseous distended loops of bowel.
[2024-05-23] MEDS: MORPHINE SULFATE 4 MG/ML SYR/VIAL IV PRN (14:14)
[2024-05-23] MEDS ORDERED: DEXTROSE (50%) 50ML SYRG IV SCH (14:30)
[2024-05-23] MEDS: InsuLIN REG 1unit/0.01ml Soln (100units/ml) SC SCH (17:55)
[2024-05-23] MEDS: ACCU-CHEK COMFORT CURVE STRIP VI SCH (17:55)
[2024-05-23] MEDS: TAMSULOSIN HYDROCHLORIDE 0.4 MG CAP PO SCH (18:00)
--- NOTE | 2024-05-23 18:46 | DVHINCON2 ---
DATE OF CONSULTATION: 05/23/2024 HISTORY OF PRESENT ILLNESS: This patient is 74 years old, coming in with abdominal pain after eating some food and then he also has nausea, vomiting. No hematemesis or melena. No bleeding per rectum. PAST MEDICAL HISTORY: History of arthritis, COPD and history of hypertension, CHF and AFib. PAST SURGICAL HISTORY: Hip surgery and a gastric bypass surgery done in 2008 and in 2013, he had a bowel obstruction that got resolved. PHYSICAL EXAMINATION: VITAL SIGNS: He is currently afebrile, stable signs. HEENT: With no evidence of pallor, cyanosis, or jaundice. NECK: Supple, nontender with no thyromegaly or lymphadenopathy. CHEST AND LUNGS: Clear. HEART: Within normal limits. ABDOMEN: Soft, minimally tender. No rebound. EXTREMITIES: Unremarkable. NEUROLOGIC: Intact. CLINICAL IMPRESSION: Rule out bowel obstruction, it could be a complication from his gastric bypass surgery. PLAN: At this point, needs conservative management, kept n.p.o., NG tube to low continuous suction and manage him conservatively with close observation and if there is resolution, then the diet can be advanced and if no resolution, the Gastrografin study might be indicated to determine the need for surgery and if surgery is indicated, then he might have to get transferred to higher level of care because of his gastric bypass surgery. MD ROSALIA Zhang/NOEMY/MIRIAM TID: [id number] RECEIPT: [id number] cc: , Elizabeth Garcia
[2024-05-23] MEDS: AMINO ACID INFUSION IN D10W 1,000 ML IV SCH (20:00)
[2024-05-23] MEDS: NORTRIPTYLINE HCL 25 MG CAP PO SCH (22:00)
[2024-05-23] MEDS: METOPROLOL TARTRATE 25 MG TAB PO SCH (22:00)
[2024-05-23] MEDS: ENOXAPARIN SOD 100 MG/1 ML SYRINGE SC SCH (22:00)
[2024-05-23] MEDS: dilTIAZem HCL 60 MG TAB PO SCH (22:00)
[2024-05-24] VITALS (9 sets, daily range): BP systolic 101–179; BP diastolic 62–92; PULSE 63–158; RESP 14–20; TEMP 97.5–98.6; O2SAT 92–95
[2024-05-24] MEDS: hydrALAZINE HCL 20 MG/ML VL IV PRN (01:34)
[2024-05-24 06:47] LABS: Alanine Aminotransferase 14 U/L (7-40); Albumin 4.6 g/dL (3.2-4.8); Alkaline Phosphatase 144 U/L (46-116); Anion Gap 12 (5-15); Aspartate Aminotransferase 17 U/L (13-40); BUN/Creatinine Ratio 16.1 (10.0-20.0); Bilirubin, Total 0.7 mg/dL (0.2-1.0); Blood Urea Nitrogen 18 mg/dL (9-23); Calcium 10.2 mg/dL (8.7-10.4); Carbon Dioxide 24 mmol/L (20-30); Chloride 98 mmol/L (98-107); Glucose 189 mg/dL (74-106); Magnesium 1.6 mg/dL (1.6-2.6); Phosphorus 3.4 mg/dL (2.4-5.1); Potassium 3.9 mmol/L (3.5-5.1); Sodium 134 mmol/L (136-145); Total Protein 7.5 g/dL (5.7-8.2); Triglycerides 84 mg/dL (< 150)
--- NOTE | 2024-05-24 08:49 | DVHPN2 ---
Progress Note - Dictate Date Seen: May 24, 2024 Medical Necessity Reason Pt with a Central, PICC or Fol: No vital signs Vital Sign Date Time Temp Pulse Resp B/P (MAP) Pulse Ox O2 Delivery O2 Flow Rate FiO2 05/24/24 08:21 158 141/90 (107) 92 05/24/24 05:25 18 05/24/24 05:00 98.1 98.1 05/23/24 20:00 Nasal Cannula* 2 28 Total Intake and Output 05/23/24 05/23/24 05/24/24 15:00 23:00 07:00 Intake Total 320 ml 0 ml Output Total 2800 ml 650 ml Balance -2480 ml -650 ml medications Current Medications Medications Dose Ordered Sig/Jason Route Start Time Stop Time Status Last Admin Dose Admin Sodium Chloride 1,000 ml @ 75 mls/hr [id number] IV 05/22/24 15:00 05/23/24 14:34 75 MLS/HR Ondansetron HCl 4 mg Q4HP PRN IV 05/22/24 15:00 05/22/24 22:47 4 MG Acetaminophen 650 mg Q6HP PRN PO 05/22/24 15:00 Allopurinol 100 mg DAILY PO 05/23/24 10:00 Citalopram Hydrobromide 20 mg DAILY PO 05/23/24 10:00 Lisinopril 10 mg BID PO 05/22/24 22:00 05/22/24 21:40 10 MG Pantoprazole Sodium 40 mg DAILY PO 05/23/24 10:00 Acetaminophen/ Hydrocodone Bitart 1 tab Q4HPRN PRN PO 05/22/24 22:15 05/23/24 02:07 1 TAB Hydralazine HCl 10 mg Q6HP PRN IV 05/23/24 05:00 05/24/24 01:34 10 MG Acetaminophen/ Hydrocodone Bitart 1 tab Q4HPRN PRN PO 05/23/24 12:00 Prochlorperazine Edisylate 10 mg Q6HP PRN IV 05/23/24 12:00 05/23/24 12:56 10 MG Atorvastatin Calcium 20 mg DAILY PO 05/24/24 10:00 Diltiazem HCl 60 mg BID PO 05/23/24 22:00 Metoprolol Tartrate 12.5 mg BID PO 05/23/24 22:00 Nortriptyline HCl 50 mg HS PO 05/23/24 22:00 Tamsulosin HCl 0.4 mg QPM PO 05/23/24 18:00 Enoxaparin Sodium 100 mg Q12HR SC 05/23/24 22:00 05/23/24 22:00 100 MG Amino Acids 0 ml @ 0 mls/hr PER PHARMACY IV 05/23/24 13:30 Morphine Sulfate 4 mg Q4HPRN PRN IV 05/23/24 13:45 05/24/24 04:55 4 MG Diagnostic Test (Pha) 1 strip Q6HR 05/23/24 18:00 05/24/24 06:00 1 STRIP Insulin Human Regular FOLLOW SLIDING SCALE Q6HR SC 05/23/24 18:00 05/24/24 06:00 4 UNITS Dextrose 50 ml UD IV 05/23/24 14:30 Amino Acids/ Electrolytes/ Dextrose 1,000 ml @ 41 mls/hr DAILY@1999 IV 05/23/24 20:00 05/23/24 20:00 41 MLS/HR objective General Appearance: alert, no distress HEENT: EOMI, PERRLA, normal external inspect of ears, no icterus, no nasal drainage Neck: no carotid bruit, no jugular venous distention (JVD), no lymphadenopathy Chest: normal thorax Respiratory: clear to auscultation, normal air movement Cardiovascular: regular rate and rhythm, no diastolic murmur, no jugular venous distention (JVD), no rub, no systolic murmur Abdominal: soft, no hepatomegaly, no mass, no splenomegaly, no tenderness Genitourinary: grossly normal external Musculoskeletal: no joint tenderness, no swelling Extremities: normal pulses, no calf tenderness, no clubbing, no cyanosis, no edema Skin: no bruising, no jaundice, no rash Neurological: alert, No focal deficit laboratory and microbiology Laboratory Tests 05/24/24 05:26 05/23/24 06:56 Test 05/24/24 05:26 Range/Units Serum Glucose 189 H 74-106 mg/dL Problem List 1. Small bowel obstruction Monitor, surgical consult, GI consult, NPO 2. HLD Monitor 3. Persistent atrial fibrillation Monitor, full dose Lovenox 4. Obesity Monitor 5. Hx gastric bypass Monitor 6. Benign essential HTN Monitor, antihypertensives 7. Gallstones Monitor, surgical consult, GI consult, NPO, HIDA scan Assessment/Plan Subjective Patient is awake and alert. Objective Patient was admitted for small bowel obstruction. NG tube was placed. Patient had persistent A-fib And then converted to A-fib with RVR today due to n.p.o. status. There was concern for possible gallbladder wall thickening. HIDA scan is currently on hold. Possibly done tomorrow. NG tube was removed. Patient no longer having nausea and vomiting. Plan Repeat KUB. Patient was seen by cardiology and was given Cardizem IV for A-fib with RVR. Heart rate is now controlled. General surgery recommendations appreciated for small bowel obstruction. Continue n.p.o. status. Clinimix for nutritional support. Dietary Evaluation Review Comments: 1. advance diet as tolerated per MD 2. Consider EN/TPN if Pt remains NPO for 48 hours Expected Outcomes/Goals: 1. 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
[2024-05-24] MEDS: dilTIAZem 25 MG/5 ML VIAL IV ONE ×2 (09:09→12:44)
[2024-05-24] MEDS: ATORVASTATIN 20 MG TAB PO SCH (09:39)
[2024-05-24] MEDS: ADENOSINE 6 MG/2 ML INJ IV ONE (10:15)
--- NOTE | 2024-05-24 10:32 | DVHINCON2 ---
Date of service: May 24, 2024 History of Present Illness HPI Patient is a 74-year-old gentleman who presented on May 22, 2024 for epigastric pain. It seems that he ate sandwich in this was followed by repeated abdominal pain and vomiting. He has been admitted with small-bowel obstruction. He also was found to have gallstones and gastric outlet obstruction. He has been seen by surgery and GI. He has been having NG tube. Patient does have his tory of paroxysmal AFib and is on Eliquis as outpatient. On 05/24 2024, the patient was found to have tachyarrhythmia and cardiology was involved for its evaluation and management. Telemetry revealed tachyarrhythmia in the rate of 150s. Tele was in favor of SVT. Patient was attached to the monitor and 6 mg of adenosine was given which resulted in breaking of the tachyarrhythmia inpatient been back to sinus rhythm. As per patient, he usually follows with Cardiology in [facility]. As per patient, he did have angiogram (cardiac catheterization some years ago and was told that it was normal findings). Home Meds Active Scripts Prednisone (Prednisone) 20 Mg Tab, 60 MG PO DAILY for 3 Days, #9 MG Prov:REILLY REYES DO 12/13/21 Apixaban Base (ELIQUIS) 5 Mg Tab, 5 MG PO BID, #60 TAB Prov:JUANY ROBERTS MD 02/07/20 Metoprolol Tartrate (Lopressor) 25 Mg Tb, 12.5 MG PO BID, #30 TAB Check blood pressure and pulse prior to dose. Hold medication if systolic blood pressure is below 120 or pulse less than 70 Prov:JUANY ROBERTS MD 02/07/20 Reported Medications Allopurinol (Allopurinol) 300 Mg Tab, 300 MG PO Q12HR for 30 Days, MG 05/23/24 Duloxetine Hcl (Cymbalta) 60 Mg Cap, 1 CAP PO DAILY, #90 CAP 3 Refills 05/23/24 Omeprazole (Gnp Omeprazole) 20 Mg Tab, 1 TAB PO DAILY, #90 TAB 1 Refill 05/23/24 Tamsulosin Hcl (Tamsulosin Hcl) 0.4 Mg Cap, 0.4 MG PO QPM for 30 Days, MG 05/23/24 Diltiazem Hcl (Diltiazem Hcl) 60 Mg Tab, 60 MG PO BID for 30 Days, MG 05/23/24 Atorvastatin Calcium (Lipitor) 20 Mg Tab, 1 TAB PO DAILY, #90 TAB 1 Refill 05/23/24 Docusate Sodium (Colace) 100 Mg Cap, 1 CAP PO BID, #30 CAP 05/23/24 Pseudoephedrine HCl ([facility] 12 Hour Nasal [place]) 120 Mg Tab, 60 MG PO BID, TAB 05/23/24 Cetirizine Hcl (Kls Aller-Maria Teresa) 10 Mg Tab, 1 TAB PO DAILY, #30 TAB 3 Refills 05/23/24 Metoprolol Tartrate (Metoprolol Tartrate) 25 Mg Tab, 10 MG PO BID for 30 Days, MG 02/21/20 Lisinopril (Lisinopril) 10 Mg Tab, 10 MG PO BID for 30 Days, MG 02/21/20 Diazepam (Diazepam) 10 Mg Tab, 30 MG PO BID, TAB 02/21/20 Hydrochlorothiazide (Hydrochlorothiazide) 12.5 Mg Cap, 12.5 MG PO DAILY for 30 Days, MG 02/21/20 Nortriptyline Hcl (PAMELOR CAPSULE) 25 Mg Cp, 50 MG PO HS, CP 03/27/14 Allopurinol (Zyloprim) 100 Mg Tab 01/24/13 Omeprazole (Sm Omeprazole) 20 Mg Tab, 40 MG PO DAILY 01/24/13 Docusate Calcium (Sb Stool Softener) 240 Mg Cap, PO 01/24/13 Nitroglycerin (Nitroglycerin) 0.4 Mg Sl, DAILYP 01/24/13 Trazodone Hcl (Trazodone Hcl) 100 Mg Tab, PO HS 01/24/13 Atorvastatin Calcium (ATORVASTATIN CALCIUM) 40 Mg Tab, PO HS 01/24/13 Senna (Sennosides) 8.6 Mg Tab, PO DAILYP 01/24/13 Potassium Chloride (K-Tabs) 10 Meq Tab, PO DAILY 01/24/13 Multiple Vitamin (Mvi Tab) 1 Tab Tb 01/13/12 [place]-3 Fatty Acids (Fish Oil) 1,000 Mg Cap 01/13/12 Epinephrine Hcl (Anaphylaxis) (Epipen) 0.3 Mg Inj 01/13/12 Citalopram Hydrobromide (Citalopram Hydrobromide) 20 Mg Tab 01/13/12 Cholecalciferol (D 400) 400 Unit Chw 01/13/12 Albuterol Sulfate (Albuterol Sulfate) 0.5 % Neb 01/13/12 Past Medical History Others Past medical history includes atrial fibrillation (on Eliquis as outpatient), DJD, heart failure (diastolic), COPD, hypertension, hyperlipidemia, reported diabetes mellitus, obesity, old history of tonsillectomy and gastric bypass surgery. He is known to have kidney stones. Patient Family History: Alcoholism Cancer Cancer of colon Family history: Arthritis Family history: Asthma Family history: Blood disorder Family history: Cardiovascular disease Family history: Depression (situation) Family history: Diabetes mellitus Family history: Glaucoma Family history: Hypercholesterolemia (situation) Family history: Hypertension Family history: Thyroid disorder Malignant melanoma Malignant neoplasm of ovary Seizure disorder (situation) Stroke No Family History of: Family history: Alzheimer's disease Family history: Congenital anomaly Family history: Coronary thrombosis Family history: Diabetes in Family history: Osteoporosis Family history: Suicide (situation) Ischemic heart disease Malignant neoplasm of breast Malignant neoplasm of lung Prostate cancer Renal stone Smoker: Quit Alocohol: None Drugs: None Review of Systems Constitutional: No symptom reported Cardiovascular: Palpitations Gastrointestinal: Nausea, Vomiting, Abdominal Pain All Other Systems Fourteen point review system performed. Relevant findings as per above and as per HPI. Otherwise negative. H&P Exam Vital Signs Vital Signs Date Time Temp Pulse Resp B/P (MAP) Pulse Ox O2 Delivery O2 Flow Rate FiO2 05/24/24 09:48 160 24 112/71 05/24/24 09:00 97.7 94 97.7 05/23/24 20:00 Nasal Cannula* 2 28 General Appeara: Well developed, Well nourished Head Exam: Normal inspection Neck Exam: Normal inspection Eye Exam: bilateral eye PERRL Peripheral Pulses: 2+ carotid (R), 2+ carotid (L), 2+ femoral (R), 2+ femoral (L), 2+ dorsalis pedis (R), 2+ dorsalis pedis (L), 2+ Radial (R), 2+ Radial (L) Abdominal Exam: Normal bowel sounds Neuro/Mental St: Alert, Oriented Appearance: Appropriate appearance Eye contact/ Speech: Cooperative Labs/Xrays Labs Test 05/24/24 05:26 05/24/24 00:36 05/23/24 06:56 05/22/24 10:29 Range/Units Sodium Level 134 L 136-145 mmol/L Potassium Level 3.9 3.5-5.1 mmol/L Chloride Level 98 98-107 mmol/L Carbon Dioxide Level 24 20-30 mmol/L Anion Gap 12 5-15 Blood Urea Nitrogen 18 9-23 mg/dL Creatinine 1.12 0.700-1.30 mg/dL Glomerular Filtration Rate Calc 70 >90 mL/min BUN/Creatinine Ratio 16.1 10.0-20.0 Serum Glucose 189 H 74-106 mg/dL Calcium Level 10.2 8.7-10.4 mg/dL Phosphorus Level 3.4 2.4-5.1 mg/dL Magnesium Level 1.6 1.6-2.6 mg/dL Total Bilirubin 0.7 0.2-1.0 mg/dL Aspartate Amino Transferase (AST) 17 13-40 U/L Alanine Aminotransferase (ALT) 14 7-40 U/L Alkaline Phosphatase 144 H 46-116 U/L Troponin I High Sensitivity 11 </=54 ng/L Total Protein 7.5 5.7-8.2 g/dL Albumin 4.6 3.2-4.8 g/dL Triglycerides Level 84 < 150 mg/dL POC Glucose 164 H 70-106 mg/dl White Blood Count 6.8 4.4-10.8 10^3/uL Red Blood Count 4.28 L 4.5-5.90 10^6/uL Hemoglobin 13.3 L 13.5-17.5 g/dL Hematocrit 38.5 #L 41.0-53.0 % Mean Corpuscular Volume 90.0 80.0-100.0 fL Mean Corpuscular Hemoglobin 31.0 28.0-32.0 pg Mean Corpuscular Hemoglobin Concent 34.5 32.0-36.0 g/dL Red Cell Distribution Width 16.5 H 11.8-14.3 % Platelet Count 186 140-450 10^3/uL Mean Platelet Volume 8.5 6.9-10.8 fL Neutrophils (%) (Auto) 72.9 37.0-80.0 % Lymphocytes (%) (Auto) 13.3 10.0-50.0 % Monocytes (%) (Auto) 13.3 H 0.0-12.0 % Eosinophils (%) (Auto) 0.2 0.0-7.0 % Basophils (%) (Auto) 0.3 0.0-2.0 % Neutrophils # (Auto) 4.9 1.6-8.6 10 ^3/uL Lymphocytes # (Auto) 0.9 0.4-5.4 10 ^3/uL Monocytes # (Auto) 0.9 0-1.3 10 ^3/uL Eosinophils # (Auto) 0 0-0.8 10 ^3/uL Basophils # (Auto) 0 0-0.2 10 ^3/uL Nucleated Red Blood Cells 0.1 % Cholesterol Level 144 < 200 mg/dL LDL Cholesterol 80 < 100 mg/dL HDL Cholesterol 48 40-59 mg/dL Thyroid Stimulating Hormone (TSH) 3.28 0.55-4.78 uIU/mL Assessment/Plan Plan Patient is a 74-year-old gentleman who presented on May 22, 2024 for epigastric pain. It seems that he ate sandwich in this was followed by repeated abdominal pain and vomiting. He has been admitted with small-bowel obstruction. He also was found to have gallstones and gastric outlet obstruction. He has been seen by surgery and GI. He has been having NG tube. Patient does have history of paroxysmal AFib and is on Eliquis as outpatient. On 05/24 2024, the patient was found to have tachyarrhythmia and cardiology was involved for its evaluation and management. Telemetry revealed tachyarrhythmia in the rate of 150s. Tele was in favor of SVT. Patient was attached to the monitor and 6 mg of adenosine was given which resulted in breaking of the tachyarrhythmia inpatient been back to sinus rhythm. As per patient, he usually follows with Cardiology in [facility]. As per patient, he did have angiogram (cardiac catheterization some years ago and was told that it was normal findings). Lying flat in bed and not in acute distress. No JVD. Mucosa is pink and wet. No carotid bruit. No goiter. Lungs are clear to auscultation. At the time of evaluation the patient started to be in tachyarrhythmia and in palpitation. Later, heart rate decreased. No thrill/gallop. Abdomen is soft. Extremities do not reveal edema Past medical history includes atrial fibrillation (on Eliquis as outpatient), DJD, heart failure (diastolic), COPD, hypertension, hyperlipidemia, reported diabetes mellitus, obesity, old history of tonsillectomy and gastric bypass surgery. He is known to have kidney stones. Echocardiogram of January 2020 revealed ejection fraction of 60% and biatrial enlargement Creatinine: 1.0 - 1.02 - 1.12 Potassium: 4.3 - 4.4 - 4.9 Troponin (high sensitive): 19 - 11 TSH: 3.28 CT of the abdomen and pelvis revealed: IMPRESSION: 1. Cholelithiasis with the gallbladder distended. 2. Postop changes to the stomach with a fluid-filled distended stomach and dilated fluid-filled small bowel findings suggest small bowel obstruction. 3. Multiple bilateral nonobstructing renal calculi. 4. Prosthesis in the right hip. Chest x-ray revealed: Frontal chest radiograph demonstrates no acute osseous or superficial soft tissue abnormalities. Enteric tube visualized overlying the plane of the stomach. The trachea is midline. The cardiac silhouette and mediastinum are within normal limits. No pneumothorax, pleural effusions, or consolidations. Partially visualized gaseous distended loops of bowel. EKG revealed SVT Tele revealed SVT which later transitioned into sinus rhythm Patient is a 74-year-old gentleman who presented with abdominal pain and is being managed for small bowel obstruction. He does have history of paroxysmal AFib. Has not been taking his medications regularly and this was followed with tachyarrhythmia. Tachyarrhythmia was in favor of SVT. SVT responded to adenosine Small-bowel obstruction Obesity History of gastric bypass Paroxysmal AFib SVT Status post adenosine management Diabetes mellitus Obesity, morbid Cardiac suggestion for management: For now, manage on telemetry Follow-up electrolytes and kidney function tests and correct abnormalities Keep potassium above 4 and magnesium above 2 Cardizem: 60 mg 4 times daily is suggested Continue metoprolol tartrate Request for Echocardiogram Evaluation and management of gallstones/gastric outlet obstruction as per primary team/GI/surgery Long-term continuation of anticoagulation is suggested (for now patient on Lovenox) Further evaluation and management depends on the above and clinical course Thank you for consultation A total of 75 minutes was spent reviewing the patient record, examining the patient, making a diagnostic and therapeutic plan, discussing this plan with medical personnel, following up on diagnostic studies and following the patient for clinical stability excluding any and all procedures. At least 50% of this time was spent in direct, [id number] contact. Thank you for allowing me to participate in this patient's care. Further recommendations will depend on patient's clinical course. Please do not hesitate to contact me if you have any questions or concerns. This medical document was created using electronic medical record system with [employer] computerized dictation system. Although this document has been carefully reviewed, there may still be some phonetic and typographical errors. These areas are purely typographical due to the imperfection of the software programs, and do not reflect any compromise in the patient's medical care. Plan discussed with: Patient, Other (nurse) BROOKS PRITCHARD MD May 24, 2024 10:32
[2024-05-24] MEDS: METOPROLOL TARTRATE 1MG/1ML-5ML VIAL IV ONE (11:34)
[2024-05-24] MEDS ORDERED: dilTIAZem HCL 60 MG TAB GT SCH (12:00)
--- NOTE | 2024-05-24 15:22 | ECG ---
[facility] Test Date: 2024-05-24 Test Time: 08:35:24 Pat Name: EDDIE WRIGHT Department: Respiratoy Room: 0232T A Gender: M Letter Carrier: PRIYA : 1950 Requested By: TETO CRAMER Order Number: [id number] Reading MD: Hair Fox Measurements Intervals [place] Rate: 157 P: 103 KS: 90 QRS: -70 QRSD: 146 T: 259 QT: 342 QTc: 553 Interpretive Statements atrial flutter with two-to-one conduction left axis deviation likely representing left anterior hemiblock Electronically Signed On 05-26-2024 8:31:01 PDT by Hair Fox Please click the below link to view image of tracing.
--- NOTE | 2024-05-24 15:47 | DVH ---
Date: 05/24/2024 03:07 PM Examination: XY KUB ABDOMEN SINGLE VIEW History: sbo Comparison: None TECHNIQUE: Frontal views of the abdomen was obtained. FINDINGS: Diffusely dilated loops of small bowel measuring up to 6 cm. IMPRESSION: Findings concerning for small bowel obstruction versus ileus.
[2024-05-24] MEDS ORDERED: dilTIAZem HCL 60 MG TAB PO SCH (18:00)
[2024-05-24] MEDS: dilTIAZem 25 MG/5 ML VIAL IV SCH (18:55)
[2024-05-24] MEDS: MAGNESIUM CITRATE SOLUTION 300 ML BTL PO ONE (18:56)
[2024-05-24] MEDS ORDERED: ADENOSINE 6 MG/2 ML INJ IV ONE (18:57)
[2024-05-24 19:58] LABS: Urine Bacteria None Seen /hpf (None Seen)
[2024-05-24 20:10] LABS: Urine Blood Negative /uL (Negative); Urine Clarity Clear (Clear); Urine Color Yellow (Yellow); Urine Hyaline Cast FEW /lpf (0 - 2); Urine Mucus FEW (None Seen); Urine Protein, UAD 1+ (Negative); Urine Specific Gravity 1.018 (1.001-1.035); Urine Urobilinogen Normal (Negative); Urine WBC 1 /hpf (0 - 3); Urine pH 5.5 (5.0-9.0)
[2024-05-25] VITALS (8 sets, daily range): BP systolic 91–149; BP diastolic 47–79; PULSE 68–106; RESP 14–18; TEMP 97.7–98.3; O2SAT 95–97
--- NOTE | 2024-05-25 07:34 | DVHPN2 ---
Progress Note - Dictate Date Seen: May 25, 2024 Medical Necessity Reason Pt with a Central, PICC or Fol: No vital signs Vital Sign Date Time Temp Pulse Resp B/P (MAP) Pulse Ox O2 Delivery O2 Flow Rate FiO2 05/25/24 07:15 90 19 136/55 05/25/24 05:00 97.8 97 97.8 05/24/24 20:00 Nasal Cannula* 2 28 Total Intake and Output 05/24/24 05/24/24 05/25/24 15:00 23:00 07:00 Intake Total 270 ml 175 ml Output Total 1200 ml 600 ml Balance -930 ml -425 ml medications Current Medications Medications Dose Ordered Sig/Jason Route Start Time Stop Time Status Last Admin Dose Admin Sodium Chloride 1,000 ml @ 75 mls/hr [id number] IV 05/22/24 15:00 05/24/24 23:37 75 MLS/HR Ondansetron HCl 4 mg Q4HP PRN IV 05/22/24 15:00 05/22/24 22:47 4 MG Acetaminophen 650 mg Q6HP PRN PO 05/22/24 15:00 Allopurinol 100 mg DAILY PO 05/23/24 10:00 05/24/24 09:39 100 MG Citalopram Hydrobromide 20 mg DAILY PO 05/23/24 10:00 05/24/24 09:39 20 MG Lisinopril 10 mg BID PO 05/22/24 22:00 05/24/24 21:45 10 MG Pantoprazole Sodium 40 mg DAILY PO 05/23/24 10:00 05/24/24 09:39 40 MG Hydralazine HCl 10 mg Q6HP PRN IV 05/23/24 05:00 05/24/24 01:34 10 MG Acetaminophen/ Hydrocodone Bitart 1 tab Q4HPRN PRN PO 05/23/24 12:00 Prochlorperazine Edisylate 10 mg Q6HP PRN IV 05/23/24 12:00 05/23/24 12:56 10 MG Atorvastatin Calcium 20 mg DAILY PO 05/24/24 10:00 05/24/24 09:39 20 MG Metoprolol Tartrate 12.5 mg BID PO 05/23/24 22:00 05/24/24 21:44 12.5 MG Nortriptyline HCl 50 mg HS PO 05/23/24 22:00 05/24/24 22:17 50 MG Tamsulosin HCl 0.4 mg QPM PO 05/23/24 18:00 05/24/24 17:49 0.4 MG Enoxaparin Sodium 100 mg Q12HR SC 05/23/24 22:00 05/24/24 21:52 100 MG Amino Acids 0 ml @ 0 mls/hr PER PHARMACY IV 05/23/24 13:30 Morphine Sulfate 4 mg Q4HPRN PRN IV 05/23/24 13:45 05/25/24 07:15 4 MG Diagnostic Test (Pha) 1 strip Q6HR 05/23/24 18:00 05/25/24 06:12 1 STRIP Insulin Human Regular FOLLOW SLIDING SCALE Q6HR SC 05/23/24 18:00 05/25/24 06:01 2 UNITS Dextrose 50 ml UD IV 05/23/24 14:30 Amino Acids/ Electrolytes/ Dextrose 1,000 ml @ 41 mls/hr DAILY@2000 IV 05/23/24 20:00 05/24/24 21:27 41 MLS/HR Diltiazem HCl 60 mg Q6HR PO 05/24/24 18:00 Hold Diltiazem HCl 10 mg Q6HR IV 05/24/24 18:00 05/25/24 06:21 10 MG objective General Appearance: alert, no distress HEENT: EOMI, PERRLA, normal external inspect of ears, no icterus, no nasal drainage Neck: no carotid bruit, no jugular venous distention (JVD), no lymphadenopathy Chest: normal thorax Respiratory: clear to auscultation, normal air movement Cardiovascular: regular rate and rhythm, no diastolic murmur, no jugular venous distention (JVD), no rub, no systolic murmur Abdominal: soft, no hepatomegaly, no mass, no splenomegaly, no tenderness Genitourinary: grossly normal external Musculoskeletal: no joint tenderness, no swelling Extremities: normal pulses, no calf tenderness, no clubbing, no cyanosis, no edema Skin: no bruising, no jaundice, no rash Neurological: alert, No focal deficit laboratory and microbiology Laboratory Tests 05/23/24 06:56 Test 05/25/24 05:38 Range/Units Serum Glucose Pending Problem List 1. Small bowel obstruction Monitor, surgical consult, GI consult, NPO 2. HLD Monitor 3. Persistent atrial fibrillation Monitor, full dose Lovenox 4. Obesity Monitor 5. Hx gastric bypass Monitor 6. Benign essential HTN Monitor, antihypertensives 7. Gallstones Monitor, surgical consult, GI consult, NPO, HIDA scan Assessment/Plan Subjective Patient is awake and alert. Objective Patient reports one bowel movement today and two bowel movements yesterday. He was admitted for abdominal pain due to bowel obstruction. General surgery was consulted, and CT imaging raised concern for possible acute cholecystitis. The HIDA scan was reportedly performed, but results are unavailable. The patient stated that he may not have completed the test. Plan Continue current treatment. Follow general surgery and GI recommendations. Repeat KUB is pending. Monitor EKG. Patient experienced multiple runs of SVT today and is on Cardizem. Patient did receive adenosine was administered yesterday. Dietary Evaluation Review Comments: 1. advance diet as tolerated per MD 2. Consider EN/TPN if Pt remains NPO for 48 hours Expected Outcomes/Goals: 1. Pt will consume >75% estimated needs within 2-3 days Plan discussed with: Patient, Other TETO CRAMER LEGAL TRANSCRIBER May 25, 2024 07:34
[2024-05-25 07:38] LABS: Alanine Aminotransferase 16 U/L (7-40); Alkaline Phosphatase 133 U/L (46-116); Anion Gap 11 (5-15); Calcium 10.1 mg/dL (8.7-10.4); Carbon Dioxide 25 mmol/L (20-30); Chloride 96 mmol/L (98-107); Potassium 3.7 mmol/L (3.5-5.1); Sodium 132 mmol/L (136-145)
[2024-05-25 07:39] LABS: BUN/Creatinine Ratio 22.6 (10.0-20.0); Glucose 133 mg/dL (74-106)
[2024-05-25 07:40] LABS: Magnesium 1.9 mg/dL (1.6-2.6)
[2024-05-25 07:41] LABS: Albumin 4.1 g/dL (3.2-4.8); Aspartate Aminotransferase 17 U/L (13-40); Bilirubin, Total 0.6 mg/dL (0.2-1.0); Phosphorus 2.9 mg/dL (2.4-5.1); Total Protein 6.8 g/dL (5.7-8.2)
--- NOTE | 2024-05-25 07:44 | DVHSR ---
APPROVED REPORT EXAM: LIMITED Two-dimensional and M-mode echocardiogram with Doppler and color Doppler. Blood Pressure: 112/70 mmHg INDICATION AFIB RISK FACTORS Obesity: Height: 5'7, Weight: 220 DIMENSIONS LVDd3.3 (3.8-5.7cm)LA (2D)3.1 (1.9-4.0cm)Aortic Root3.6 (2.0-3.7cm) LVDs2.5 (2.5-4.0cm)LA (MM) (1.9-4.0cm)Aortic Cusp Exc0.8 (1.5-2.0cm) EF (%) 55.0 (55-70%)Rt. Atrium3.3 (1.9-4.0cm)Asc. Aorta4.5 cm IVSd1.0 (0.7-1.1cm)RV (D) (1.8-2.4cm) PWd0.9 (0.7-1.1cm) Mitral Valve MitralMitral Stenosis E wave0.43m/sMV Mean GR.mmHg A wave0.92m/sMV Peak GR.mmHg E/A ratio0.52D MVAcm2 DECEL [id number] 1/2 Timems Aortic Valve Aortic ValveAortic Stenosis V11.19m/Oh Mean GR.13mmHg V22.49m/Oh Peak GR.23mmHg LVOT Diameter2.3 (1.8-2.4cm)Doppler AVA1.98cm2 AI P 1/2 [id number] Pulmonic Valve V20.95m/s Tricuspid Valve TR Velocity2.15m/s [id number] Other Information Quality : LimitedRhythm : Technically limited study due to body habitus.patient position. patient talking Conclusion Technically limited study secondary to poor acoustic windows. Left ventricle: Mild concentric left ventricular hypertrophy was seen. LVEF was 55-60%. Right ventricle was normal size with normal systolic function. Both atria were mildly dilated. Aortic valve was not well visualized. Aortic sclerosis with no stenosis was observed. [id number] ate aortic insufficiency was observed. Mild mitral/tricuspid regurgitation was seen. Tricuspid valv e was not well visualized. Right ventricular systolic pressure was assessed around 25 mm Hg. There was no pericardial effusion. Ascending aorta was 4.5 cm.
[2024-05-25 07:46] LABS: Blood Urea Nitrogen 28 mg/dL (9-23)
--- NOTE | 2024-05-25 07:50 | DVHPN2 ---
Progress Note - Dictate Date Seen: May 25, 2024 Medical Necessity Reason Pt with a Central, PICC or Fol: No vital signs Vital Sign Date Time Temp Pulse Resp B/P (MAP) Pulse Ox O2 Delivery O2 Flow Rate FiO2 05/25/24 07:15 90 19 136/55 05/25/24 05:00 97.8 97 97.8 05/24/24 20:00 Nasal Cannula* 2 28 Total Intake and Output 05/24/24 05/24/24 05/25/24 15:00 23:00 07:00 Intake Total 270 ml 175 ml Output Total 1200 ml 600 ml Balance -930 ml -425 ml medications Current Medications Medications Dose Ordered Sig/Jason Route Start Time Stop Time Status Last Admin Dose Admin Sodium Chloride 1,000 ml @ 75 mls/hr [id number] IV 05/22/24 15:00 05/24/24 23:37 75 MLS/HR Ondansetron HCl 4 mg Q4HP PRN IV 05/22/24 15:00 05/22/24 22:47 4 MG Acetaminophen 650 mg Q6HP PRN PO 05/22/24 15:00 Allopurinol 100 mg DAILY PO 05/23/24 10:00 05/24/24 09:39 100 MG Citalopram Hydrobromide 20 mg DAILY PO 05/23/24 10:00 05/24/24 09:39 20 MG Lisinopril 10 mg BID PO 05/22/24 22:00 05/24/24 21:45 10 MG Pantoprazole Sodium 40 mg DAILY PO 05/23/24 10:00 05/24/24 09:39 40 MG Hydralazine HCl 10 mg Q6HP PRN IV 05/23/24 05:00 05/24/24 01:34 10 MG Acetaminophen/ Hydrocodone Bitart 1 tab Q4HPRN PRN PO 05/23/24 12:00 Prochlorperazine Edisylate 10 mg Q6HP PRN IV 05/23/24 12:00 05/23/24 12:56 10 MG Atorvastatin Calcium 20 mg DAILY PO 05/24/24 10:00 05/24/24 09:39 20 MG Metoprolol Tartrate 12.5 mg BID PO 05/23/24 22:00 05/24/24 21:44 12.5 MG Nortriptyline HCl 50 mg HS PO 05/23/24 22:00 05/24/24 22:17 50 MG Tamsulosin HCl 0.4 mg QPM PO 05/23/24 18:00 05/24/24 17:49 0.4 MG Enoxaparin Sodium 100 mg Q12HR SC 05/23/24 22:00 05/24/24 21:52 100 MG Amino Acids 0 ml @ 0 mls/hr PER PHARMACY IV 05/23/24 13:30 Morphine Sulfate 4 mg Q4HPRN PRN IV 05/23/24 13:45 05/25/24 07:15 4 MG Diagnostic Test (Pha) 1 strip Q6HR 05/23/24 18:00 05/25/24 06:12 1 STRIP Insulin Human Regular FOLLOW SLIDING SCALE Q6HR SC 05/23/24 18:00 05/25/24 06:01 2 UNITS Dextrose 50 ml UD IV 05/23/24 14:30 Amino Acids/ Electrolytes/ Dextrose 1,000 ml @ 41 mls/hr DAILY@1999 IV 05/23/24 20:00 05/24/24 21:27 41 MLS/HR Diltiazem HCl 60 mg Q6HR PO 05/24/24 18:00 Hold Diltiazem HCl 10 mg Q6HR IV 05/24/24 18:00 05/25/24 06:21 10 MG laboratory and microbiology Laboratory Tests 05/25/24 05:38 05/23/24 06:56 Test 05/25/24 05:38 Range/Units Serum Glucose 133 H 74-106 mg/dL Assessment/Plan Patient is a 74-year-old gentleman who presented on May 22, 2024 for epigastric pain. It seems that he ate sandwich in this was followed by repeated abdominal pain and vomiting. He has been admitted with small-bowel obstruction. He also was found to have gallstones and gastric outlet obstruction. He has been seen by surgery and GI. He has been having NG tube. Patient does have history of paroxysmal AFib and is on Eliquis as outpatient. On 05/24 2024, the patient was found to have tachyarrhythmia and cardiology was involved for its evaluation and management. Telemetry revealed tachyarrhythmia in the rate of 150s. Tele was in favor of SVT. Patient was attached to the monitor and 6 mg of adenosine was given which resulted in breaking of the tachyarrhythmia inpatient been back to sinus rhythm. As per patient, he usually follows with Cardiology in [facility]. As per patient, he did have angiogram (cardiac catheterization some years ago and was told that it was normal findings). Lying flat in bed and not in acute distress. No JVD. Mucosa is pink and wet. No carotid bruit. No goiter. Lungs are clear to auscultation. At the time of evaluation the patient started to be in tachyarrhythmia and in palpitation. Later, heart rate decreased. No thrill/gallop. Abdomen is soft. Extremities do not reveal edema Past medical history includes atrial fibrillation (on Eliquis as outpatient), DJD, heart failure (diastolic), COPD, hypertension, hyperlipidemia, reported diabetes mellitus, obesity, old history of tonsillectomy and gastric bypass surgery. He is known to have kidney stones. Echocardiogram of January 2020 revealed ejection fraction of 60% and biatrial enlargement Creatinine: 1.0 - 1.02 - 1.12 - 1.24 Potassium: 4.3 - 4.4 - 4.9 - 3.7 Troponin (high sensitive): 19 - 11 TSH: 3.28 CT of the abdomen and pelvis revealed: IMPRESSION: 1. Cholelithiasis with the gallbladder distended. 2. Postop changes to the stomach with a fluid-filled distended stomach and dilated fluid-filled small bowel findings suggest small bowel obstruction. 3. Multiple bilateral nonobstructing renal calculi. 4. Prosthesis in the right hip. Chest x-ray revealed: Frontal chest radiograph demonstrates no acute osseous or superficial soft tissue abnormalities. Enteric tube visualized overlying the plane of the stomach. The trachea is midline. The cardiac silhouette and mediastinum are within normal limits. No pneumothorax, pleural effusions, or consolidations. Partially visualized gaseous distended loops of bowel. EKG revealed SVT Tele revealed SVT which later transitioned into sinus rhythm Echocardiogram revealed: Technically limited study secondary to poor acoustic windows. Left ventricle: Mild concentric left ventricular hypertrophy was seen. LVEF was 55-60%. Right ventricle was normal size with normal systolic function. Both atria were mildly dilated. Aortic valve was not well visualized. Aortic sclerosis with no stenosis was observed. [id number] aortic insufficiency was observed. Mild mitral/tricuspid regurgitation was seen. Tricuspid valve was not well visualized. Right ventricular systolic pressure was assessed around 25 mm Hg. There was no pericardial effusion. Ascending aorta was 4.5 cm. Patient is a 74-year-old gentleman who presented with abdominal pain and is being managed for small bowel obstruction. He does have history of paroxysmal AFib. Has not been taking his medications regularly and this was followed with tachyarrhythmia. Tachyarrhythmia was in favor of SVT. SVT responded to adenosine Small-bowel obstruction Obesity History of gastric bypass Paroxysmal AFib SVT Status post adenosine management Diabetes mellitus Obesity, morbid Cardiac suggestion for management: For now, manage on telemetry Follow-up electrolytes and kidney function tests and correct abnormalities Keep potassium above 4 and magnesium above 2 Cardizem: 10 mg [id number] (IV for now: still NPO) Continue metoprolol tartrate Evaluation and management of gallstones/gastric outlet obstruction as per primary team/GI/surgery Long-term continuation of anticoagulation is suggested (for now patient on Lovenox) Further evaluation and management depends on the above and clinical course A total of 55 minutes was spent reviewing the patient record, examining the patient, making a diagnostic and therapeutic plan, discussing this plan with medical personnel, following up on diagnostic studies and following the patient for clinical stability excluding any and all procedures. At least 50% of this time was spent in direct, [id number] contact. Thank you for allowing me to participate in this patient's care. Further recommendations will depend on patient's clinical course. Please do not hesitate to contact me if you have any questions or concerns. This medical document was created using electronic medical record system with [employer] computerized dictation system. Although this document has been carefully reviewed, there may still be some phonetic and typographical errors. These areas are purely typographical due to the imperfection of the software programs, and do not reflect any compromise in the patient's medical care. Dietary Evaluation Review Comments: 1. advance diet as tolerated per MD 2. Consider EN/TPN if Pt remains NPO for 48 hours Expected Outcomes/Goals: 1. Pt will consume >75% estimated needs within 2-3 days Plan discussed with: Other (nurse) BROOKS PRITCHARD MD May 25, 2024 07:50
--- NOTE | 2024-05-25 13:35 | DVH ---
Date: 05/25/2024 01:09 PM Examination: XY KUB ABDOMEN SINGLE VIEW History: sbo Comparison: XY KUB ABDOMEN SINGLE VIEW on DOS: 05/24/24 TECHNIQUE: Frontal views of the abdomen was obtained. FINDINGS/IMPRESSION: Dilated loops of small bowel with gas and stool visualized in the colon. Findings appear improved com pared to prior exam.
--- NOTE | 2024-05-25 17:21 | DVH ---
EXAM: NM NM HIDA SCAN History: r/o natasha Comparison Study: None TECHNIQUE: Following intravenous administration of 6.5 mCi of Tc-99m mebrofenin (Choletec), dynamic s equential images of the right upper abdomen were acquired for 30 minutes. An additional [address] liban image in the lateral right upper quadrant was also obtained. FINDINGS: The liver demonstrates prompt radiotracer uptake with clearance from blood pool. No focal perfusion d efects were noted. There was prompt excretion of the radiotracer into the biliary tree, without evide nce of biliary dilatation or obstruction. The gallbladder is not visualized at 30 minutes; However, the gallbladder is visualized at 4 hours. IMPRESSION: 1. Findings may reflect chronic cholecystitis, cannot exclude acute cholecystitis due to lack of 30-6 0 minute images.
[2024-05-26] VITALS (8 sets, daily range): BP systolic 112–149; BP diastolic 55–72; PULSE 60–101; RESP 16–19; TEMP 97.4–98.3; O2SAT 91–97
--- NOTE | 2024-05-26 06:48 | DVHPN2 ---
Progress Note - Dictate Date Seen: May 26, 2024 Medical Necessity Reason Pt with a Central, PICC or Fol: No vital signs Vital Sign Date Time Temp Pulse Resp B/P (MAP) Pulse Ox O2 Delivery O2 Flow Rate FiO2 05/26/24 05:00 97.6 93 17 112/55 (74) 95 97.6 05/25/24 20:00 Nasal Cannula* 2 28 Total Intake and Output 05/25/24 05/25/24 05/26/24 15:00 23:00 07:00 Intake Total 2229 ml 175 ml Output Total 800 ml Balance 1429 ml 175 ml medications Current Medications Medications Dose Ordered Sig/Jason Route Start Time Stop Time Status Last Admin Dose Admin Sodium Chloride 1,000 ml @ 75 mls/hr [id number] IV 05/22/24 15:00 05/25/24 23:11 75 MLS/HR Ondansetron HCl 4 mg Q4HP PRN IV 05/22/24 15:00 05/22/24 22:47 4 MG Acetaminophen 650 mg Q6HP PRN PO 05/22/24 15:00 Allopurinol 100 mg DAILY PO 05/23/24 10:00 05/25/24 11:03 100 MG Citalopram Hydrobromide 20 mg DAILY PO 05/23/24 10:00 05/25/24 11:03 20 MG Lisinopril 10 mg BID PO 05/22/24 22:00 05/25/24 11:04 10 MG Pantoprazole Sodium 40 mg DAILY PO 05/23/24 10:00 05/25/24 11:03 40 MG Hydralazine HCl 10 mg Q6HP PRN IV 05/23/24 05:00 05/24/24 01:34 10 MG Acetaminophen/ Hydrocodone Bitart 1 tab Q4HPRN PRN PO 05/23/24 12:00 Prochlorperazine Edisylate 10 mg Q6HP PRN IV 05/23/24 12:00 05/23/24 12:56 10 MG Atorvastatin Calcium 20 mg DAILY PO 05/24/24 10:00 05/25/24 11:03 20 MG Metoprolol Tartrate 12.5 mg BID PO 05/23/24 22:00 05/25/24 22:03 12.5 MG Nortriptyline HCl 50 mg HS PO 05/23/24 22:00 05/25/24 22:02 50 MG Tamsulosin HCl 0.4 mg QPM PO 05/23/24 18:00 05/25/24 18:03 0.4 MG Enoxaparin Sodium 100 mg Q12HR SC 05/23/24 22:00 05/25/24 21:58 100 MG Morphine Sulfate 4 mg Q4HPRN PRN IV 05/23/24 13:45 05/26/24 03:36 4 MG Diltiazem HCl 60 mg Q6HR PO 05/24/24 18:00 Hold Diltiazem HCl 10 mg Q6HR IV 05/24/24 18:00 05/26/24 06:37 10 MG laboratory and microbiology Laboratory Tests 05/25/24 05:38 05/23/24 06:56 Test 05/25/24 05:38 Range/Units Serum Glucose 133 H 74-106 mg/dL Assessment/Plan Patient is a 74-year-old gentleman who presented on May 22, 2024 for epigastric pain. It seems that he ate sandwich in this was followed by repeated abdominal pain and vomiting. He has been admitted with small-bowel obstruction. He also was found to have gallstones and gastric outlet obstruction. He has been seen by surgery and GI. He has been having NG tube. Patient does have history of paroxysmal AFib and is on Eliquis as outpatient. On 05/24 2024, the patient was found to have tachyarrhythmia and cardiology was involved for its evaluation and management. Telemetry revealed tachyarrhythmia in the rate of 150s. Tele was in favor of SVT. Patient was attached to the monitor and 6 mg of adenosine was given which resulted in breaking of the tachyarrhythmia inpatient been back to sinus rhythm. As per patient, he usually follows with Cardiology in [facility]. As per patient, he did have angiogram (cardiac catheterization some years ago and was told that it was normal findings). Lying flat in bed and not in acute distress. No JVD. Mucosa is pink and wet. No carotid bruit. No goiter. Lungs are clear to auscultation. At the time of evaluation the patient started to be in tachyarrhythmia and in palpitation. Later, heart rate decreased. No thrill/gallop. Abdomen is soft. Extremities do not reveal edema Past medical history includes atrial fibrillation (on Eliquis as outpatient), DJD, heart failure (diastolic), COPD, hypertension, hyperlipidemia, reported diabetes mellitus, obesity, old history of tonsillectomy and gastric bypass surgery. He is known to have kidney stones. Echocardiogram of January 2020 revealed ejection fraction of 60% and biatrial enlargement Creatinine: 1.0 - 1.02 - 1.12 - 1.24 Potassium: 4.3 - 4.4 - 4.9 - 3.7 Troponin (high sensitive): 19 - 11 TSH: 3.28 CT of the abdomen and pelvis revealed: IMPRESSION: 1. Cholelithiasis with the gallbladder distended. 2. Postop changes to the stomach with a fluid-filled distended stomach and dilated fluid-filled small bowel findings suggest small bowel obstruction. 3. Multiple bilateral nonobstructing renal calculi. 4. Prosthesis in the right hip. Chest x-ray revealed: Frontal chest radiograph demonstrates no acute osseous or superficial soft tissue abnormalities. Enteric tube visualized overlying the plane of the stomach. The trachea is midline. The cardiac silhouette and mediastinum are within normal limits. No pneumothorax, pleural effusions, or consolidations. Partially visualized gaseous distended loops of bowel. HIDA scan reported: IMPRESSION: 1. Findings may reflect chronic cholecystitis, cannot exclude acute cholecystitis due to lack of 30-60 minute images. KUB revealed: IMPRESSION: Findings concerning for small bowel obstruction versus ileus. Repeat KUB revealed: FINDINGS/IMPRESSION: Dilated loops of small bowel with gas and stool visualized in the colon. Findings appear improved compared to prior exam. EKG revealed SVT Tele revealed SVT which later transitioned into sinus rhythm Echocardiogram revealed: Technically limited study secondary to poor acoustic windows. Left ventricle: Mild concentric left ventricular hypertrophy was seen. LVEF was 55-60%. Right ventricle was normal size with normal systolic function. Both atria were mildly dilated. Aortic valve was not well visualized. Aortic sclerosis with no stenosis was observed. [id number] aortic insufficiency was observed. Mild mitral/tricuspid regurgitation was seen. Tricuspid valve was not well visualized. Right ventricular systolic pressure was assessed around 25 mm Hg. There was no pericardial effusion. Ascending aorta was 4.5 cm. Patient is a 74-year-old gentleman who presented with abdominal pain and is being managed for small bowel obstruction. He does have history of paroxysmal AFib. Has not been taking his medications regularly and this was followed with tachyarrhythmia. Tachyarrhythmia was in favor of SVT. SVT responded to adenosine Small-bowel obstruction Obesity History of gastric bypass Paroxysmal AFib SVT Status post adenosine management Diabetes mellitus Obesity, morbid Cardiac suggestion for management: For now, manage on telemetry Follow-up electrolytes and kidney function tests and correct abnormalities Keep potassium above 4 and magnesium above 2 Cardizem: 60 mg Q6 hours Continue metoprolol tartrate Evaluation and management of gallstones/gastric outlet obstruction as per primary team/GI/surgery Long-term continuation of anticoagulation is suggested (for now patient on Lovenox) Further evaluation and management depends on the above and clinical course A total of 55 minutes was spent reviewing the patient record, examining the patient, making a diagnostic and therapeutic plan, discussing this plan with medical personnel, following up on diagnostic studies and following the patient for clinical stability excluding any and all procedures. At least 50% of this time was spent in direct, [id number] contact. Thank you for allowing me to participate in this patient's care. Further recommendations will depend on patient's clinical course. Please do not hesitate to contact me if you have any questions or concerns. This medical document was created using electronic medical record system with [employer] computerized dictation system. Although this document has been carefully reviewed, there may still be some phonetic and typographical errors. These areas are purely typographical due to the imperfection of the software programs, and do not reflect any compromise in the patient's medical care. Dietary Evaluation Review Comments: 1. advance diet as tolerated per MD 2. Consider EN/TPN if Pt remains NPO for 48 hours Expected Outcomes/Goals: 1. Pt will consume >75% estimated needs within 2-3 days Plan discussed with: Other (nurse) BROOKS PRITCHARD MD May 26, 2024 06:48
--- NOTE | 2024-05-26 08:41 | DVH ---
CLINICAL INDICATION: Patient found laying on the floor, complaints of left hip pa TECHNIQUE: 1 radiographic views of the pelvis and 2 views of the left hip were obtained. Comparison: None FINDINGS/IMPRESSION: There is a displaced and impacted left intertrochanteric fracture. Patient is status post right hip arthroplasty.
--- NOTE | 2024-05-26 11:07 | DVHPN2 ---
Date of Progress Note Date of Progress Note Date of Progress Note: 05/26/24 Date of Admission Date of Admission Date of Admission: Date of Admission: May 22, 2024 at 14:57 Overnight Events Overnight events Overnight Events Pt NPO for SBO, NG tube out this AM, passing stool and gas this AM, ABD pain improved. Mechanical fall yesterday with left groin pain. Past Medical History Past Medical History Past Medical History Pt denies CVA, SC, DM Admitted 05/22/24 for SBO, treated with NG tube,obs. Pt passing gas this AM, passing stool this AM. NG tube out this AM Mechanical fall yesterday with left groin pain. Pt denies DM, SC, CVA Past Surgical History Past Surgical History Past Surgical History RIGHT roosevelt hip for femoral neck fracture Family History Family History Family History: Alcoholism Cancer Cancer of colon Family history: Arthritis Family history: Asthma Family history: Blood disorder Family history: Cardiovascular disease Family history: Depression (situation) Family history: Diabetes mellitus Family history: Glaucoma Family history: Hypercholesterolemia (situation) Family history: Hypertension Family history: Thyroid disorder Malignant melanoma Malignant neoplasm of ovary Seizure disorder (situation) Stroke No Family History of: Family history: Alzheimer's disease Family history: Congenital anomaly Family history: Coronary thrombosis Family history: Diabetes in Family history: Osteoporosis Family history: Suicide (situation) Ischemic heart disease Malignant neoplasm of breast Malignant neoplasm of lung Prostate cancer Renal stone Allergies: Coded Allergies: Amiodarone (Verified Allergy, Unknown, 08/11/20) Diphenhydramine (Verified Allergy, Unknown, 08/11/20) Furosemide (Verified Allergy, Unknown, 08/11/20) Ibuprofen (Verified Allergy, Unknown, 08/11/20) Naproxen (Verified Allergy, Unknown, 08/11/20) Sulfa Drugs (Verified Allergy, Unknown, 08/11/20) Home Meds Active Scripts Prednisone (Prednisone) 20 Mg Tab, 60 MG PO DAILY for 3 Days, #9 MG Prov:REILLY REYES DO 12/13/21 Apixaban Base (ELIQUIS) 5 Mg Tab, 5 MG PO BID, #60 TAB Prov:JUANY ROBERTS MD 02/07/20 Metoprolol Tartrate (Lopressor) 25 Mg Tb, 12.5 MG PO BID, #30 TAB Check blood pressure and pulse prior to dose. Hold medication if systolic blood pressure is below 120 or pulse less than 70 Prov:JUANY ROBERTS MD 02/07/20 Reported Medications Allopurinol (Allopurinol) 300 Mg Tab, 300 MG PO Q12HR for 30 Days, MG 05/23/24 Duloxetine Hcl (Cymbalta) 60 Mg Cap, 1 CAP PO DAILY, #90 CAP 3 Refills 05/23/24 Omeprazole (Gnp Omeprazole) 20 Mg Tab, 1 TAB PO DAILY, #90 TAB 1 Refill 05/23/24 Tamsulosin Hcl (Tamsulosin Hcl) 0.4 Mg Cap, 0.4 MG PO QPM for 30 Days, MG 05/23/24 Diltiazem Hcl (Diltiazem Hcl) 60 Mg Tab, 60 MG PO BID for 30 Days, MG 05/23/24 Atorvastatin Calcium (Lipitor) 20 Mg Tab, 1 TAB PO DAILY, #90 TAB 1 Refill 05/23/24 Docusate Sodium (Colace) 100 Mg Cap, 1 CAP PO BID, #30 CAP 05/23/24 Pseudoephedrine HCl ([facility] 12 Hour Nasal [place]) 120 Mg Tab, 60 MG PO BID, TAB 05/23/24 Cetirizine Hcl (Kls Aller-Maria Teresa) 10 Mg Tab, 1 TAB PO DAILY, #30 TAB 3 Refills 05/23/24 Metoprolol Tartrate (Metoprolol Tartrate) 25 Mg Tab, 10 MG PO BID for 30 Days, MG 02/21/20 Lisinopril (Lisinopril) 10 Mg Tab, 10 MG PO BID for 30 Days, MG 02/21/20 Diazepam (Diazepam) 10 Mg Tab, 30 MG PO BID, TAB 02/21/20 Hydrochlorothiazide (Hydrochlorothiazide) 12.5 Mg Cap, 12.5 MG PO DAILY for 30 Days, MG 02/21/20 Nortriptyline Hcl (PAMELOR CAPSULE) 25 Mg Cp, 50 MG PO HS, CP 03/27/14 Allopurinol (Zyloprim) 100 Mg Tab 01/24/13 Omeprazole (Sm Omeprazole) 20 Mg Tab, 40 MG PO DAILY 01/24/13 Docusate Calcium (Sb Stool Softener) 240 Mg Cap, PO 01/24/13 Nitroglycerin (Nitroglycerin) 0.4 Mg Sl, DAILYP 01/24/13 Trazodone Hcl (Trazodone Hcl) 100 Mg Tab, PO HS 01/24/13 Atorvastatin Calcium (ATORVASTATIN CALCIUM) 40 Mg Tab, PO HS 01/24/13 Senna (Sennosides) 8.6 Mg Tab, PO DAILYP 01/24/13 Potassium Chloride (K-Tabs) 10 Meq Tab, PO DAILY 01/24/13 Multiple Vitamin (Mvi Tab) 1 Tab Tb 01/13/12 [place]-3 Fatty Acids (Fish Oil) 1,000 Mg Cap 01/13/12 Epinephrine Hcl (Anaphylaxis) (Epipen) 0.3 Mg Inj 01/13/12 Citalopram Hydrobromide (Citalopram Hydrobromide) 20 Mg Tab 01/13/12 Cholecalciferol (D 400) 400 Unit Chw 01/13/12 Albuterol Sulfate (Albuterol Sulfate) 0.5 % Neb 01/13/12 Current Medications Current Medications Medications (Trade) Dose Ordered Sig/Jason Route PRN Reason Start Time Stop Time Status Last Admin Diltiazem HCl (Cardizem Immediate Release Tab) 60 mg Q6HR PO 05/26/24 12:00 Physical Examination General Examination: Last Vital sign Vital Signs Date Time Temp Pulse Resp B/P (MAP) Pulse Ox O2 Delivery O2 Flow Rate FiO2 05/26/24 09:35 96 126/65 05/26/24 09:15 16 05/26/24 09:00 97.9 91 97.9 05/26/24 07:45 Nasal Cannula* 2 28 General: General: No apparent distress, appears comfortable. Cooperative. HEENT: NCAT Extremities: Left LE, NVI, pain in left groin with PROM skin changes left LE c/w PVD Skin: distal lskin changes B LE, c/w PVD Neurological Examination: Neurological Examination: Mental Status: Cranial Nerves: Motor Examination: Reflexes: Sensory: Coordination: Gait: NVI B LE Labs: Labs: Laboratory Tests Test 05/22/24 10:29 05/23/24 06:56 05/24/24 00:36 05/24/24 05:26 Range/Units White Blood Count 8.6 6.8 4.4-10.8 10^3/uL Red Blood Count 4.76 4.28 L 4.5-5.90 10^6/uL Hemoglobin 14.4 13.3 L 13.5-17.5 g/dL Hematocrit 43.1 38.5 #L 41.0-53.0 % Mean Corpuscular Volume 90.5 90.0 80.0-100.0 fL Mean Corpuscular Hemoglobin 30.2 31.0 28.0-32.0 pg Mean Corpuscular Hemoglobin Concent 33.4 34.5 32.0-36.0 g/dL Red Cell Distribution Width 16.6 H 16.5 H 11.8-14.3 % Platelet Count 208 186 140-450 10^3/uL Mean Platelet Volume 8.1 8.5 6.9-10.8 fL Neutrophils (%) (Auto) 81.2 H 72.9 37.0-80.0 % Lymphocytes (%) (Auto) 10.5 13.3 10.0-50.0 % Monocytes (%) (Auto) 7.9 13.3 H 0.0-12.0 % Eosinophils (%) (Auto) 0.2 0.2 0.0-7.0 % Basophils (%) (Auto) 0.2 0.3 0.0-2.0 % Neutrophils # (Auto) 7.0 4.9 1.6-8.6 10 ^3/uL Lymphocytes # (Auto) 0.9 0.9 0.4-5.4 10 ^3/uL Monocytes # (Auto) 0.7 0.9 0-1.3 10 ^3/uL Eosinophils # (Auto) 0 0 0-0.8 10 ^3/uL Basophils # (Auto) 0 0 0-0.2 10 ^3/uL Nucleated Red Blood Cells 0.1 0.1 % Sodium Level 135 L 135 L 134 L 136-145 mmol/L Potassium Level 4.3 4.4 3.9 3.5-5.1 mmol/L Chloride Level 101 101 98 98-107 mmol/L Carbon Dioxide Level 26 26 24 20-30 mmol/L Anion Gap 8 8 12 5-15 Blood Urea Nitrogen 16 17 18 9-23 mg/dL Creatinine 1.00 1.02 1.12 0.700-1.30 mg/dL Glomerular Filtration Rate Calc 80 78 70 >90 mL/min BUN/Creatinine Ratio 16.0 16.7 16.1 10.0-20.0 Serum Glucose 123 H 120 H 189 H 74-106 mg/dL Calcium Level 10.4 9.9 10.2 8.7-10.4 mg/dL Troponin I High Sensitivity 19 11 </=54 ng/L Triglycerides Level 93 84 < 150 mg/dL Cholesterol Level 144 < 200 mg/dL LDL Cholesterol 80 < 100 mg/dL HDL Cholesterol 48 40-59 mg/dL Thyroid Stimulating Hormone (TSH) 3.28 0.55-4.78 uIU/mL Total Bilirubin 0.7 0.7 0.2-1.0 mg/dL Aspartate Amino Transferase (AST) 18 17 13-40 U/L Alanine Aminotransferase (ALT) 14 14 7-40 U/L Alkaline Phosphatase 136 H 144 H 46-116 U/L Total Protein 6.5 7.5 5.7-8.2 g/dL Albumin 4.1 4.6 3.2-4.8 g/dL POC Glucose 164 H 70-106 mg/dl Phosphorus Level 3.4 2.4-5.1 mg/dL Magnesium Level 1.6 1.6-2.6 mg/dL Test 05/24/24 12:24 05/24/24 17:39 05/24/24 19:57 05/25/24 05:38 Range/Units POC Glucose 145 H 134 H 70-106 mg/dl Urine Color Yellow Yellow Urine Clarity Clear Clear Urine pH 5.5 5.0-9.0 Urine Specific [place] 1.018 1.001-1.035 Urine Protein 1+ H Negative Urine Ketones Negative Negative Urine Blood Negative Negative /uL Urine Nitrite Negative Negative Urine Bilirubin Negative Negative Urine Urobilinogen Normal Negative mg/dL Urine Leukocyte Esterase Negative Negative /uL Urine RBC 11 0 - 3 /hpf Urine WBC 1 0 - 3 /hpf Urine Squamous Epithelial Cells Few <5 /hpf Urine Bacteria None seen None Seen /hpf Urine Hyaline Casts Few 0 - 2 /lpf Urine Mucus Few None Seen Urine Glucose Normal Normal mg/dL Sodium Level 132 L 136-145 mmol/L Potassium Level 3.7 3.5-5.1 mmol/L Chloride Level 96 L 98-107 mmol/L Carbon Dioxide Level 25 20-30 mmol/L Anion Gap 11 5-15 Blood Urea Nitrogen 28 #H 9-23 mg/dL Creatinine 1.24 0.700-1.30 mg/dL Glomerular Filtration Rate Calc 62 >90 mL/min BUN/Creatinine Ratio 22.6 H 10.0-20.0 Serum Glucose 133 H 74-106 mg/dL Calcium Level 10.1 8.7-10.4 mg/dL Phosphorus Level 2.9 2.4-5.1 mg/dL Magnesium Level 1.9 1.6-2.6 mg/dL Total Bilirubin 0.6 0.2-1.0 mg/dL Aspartate Amino Transferase (AST) 17 13-40 U/L Alanine Aminotransferase (ALT) 16 7-40 U/L Alkaline Phosphatase 133 H 46-116 U/L Total Protein 6.8 5.7-8.2 g/dL Albumin 4.1 3.2-4.8 g/dL Test 05/25/24 05:55 05/25/24 11:21 Range/Units POC Glucose 145 H 145 H 70-106 mg/dl Imaging Imagin05/26/24 XR left hip, IT fracture Assessment/Plan Assessment/Plan Assessment and Plan:Ferny Ferrera is a 74 year old male who presents with left groin pain s/p mechanical fall in hospital 1) pre -op medical clearance 2) NPO after midnight tonight 3) consent for surgery , ORIF left hip IT fracture 4) surgery sched for 4pm 05/27/24 [facility] Plan discussed with: Patient NIMO MACEDO MD May 26, 2024 11:07
--- NOTE | 2024-05-26 11:35 | ECG ---
[facility] Test Date: 2024-05-24 Test Time: 10:23:14 Pat Name: EDDIE WRIGHT Department: Respiratoy Room: 0232T A Gender: M Strategic Partnership Specialist: castro peres : 1950 Requested By: BROOKS PRITCHARD Order Number: [id number] Reading MD: Hair Fox Measurements Intervals [place] Rate: 94 P: 9 VA: 178 QRS: -25 QRSD: 99 T: -77 QT: 328 QTc: 411 Interpretive Statements Sinus rhythm Atrial premature complex Borderline left axis deviation Borderline T abnormalities, diffuse leads Electronically Signed On 05-26-2024 18:31:33 PDT by Hair Fox Please click the below link to view image of tracing.
--- NOTE | 2024-05-26 11:36 | ECG ---
[facility] Test Date: 2024-05-24 Test Time: 01:49:33 Pat Name: EDDIE WRIGHT Department: Room: 0232T A Gender: M Audit Specialist: NIRAV : 1950 Requested By: BROOKS PRITCHARD Order Number: [id number] Reading MD: Hair Fox Measurements Intervals [place] Rate: 92 P: 61 NV: 185 QRS: -25 QRSD: 101 T: 269 QT: 317 QTc: 393 Interpretive Statements Sinus rhythm Borderline left axis deviation Low voltage, precordial leads Borderline repolarization abnormality Electronically Signed On 05-26-2024 18:31:25 PDT by Hair Fox Please click the below link to view image of tracing.
--- NOTE | 2024-05-26 11:37 | ECG ---
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
--- NOTE | 2024-05-26 11:41 | ECG ---
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
[2024-05-26] MEDS: dilTIAZem HCL 60 MG TAB PO SCH (11:46)
--- NOTE | 2024-05-26 13:56 | DVHPN2 ---
Progress Note - Dictate Date Seen: May 26, 2024 Medical Necessity Reason Pt with a Central, PICC or Fol: No vital signs Vital Sign Date Time Temp Pulse Resp B/P (MAP) Pulse Ox O2 Delivery O2 Flow Rate FiO2 05/26/24 13:26 100 18 127/67 05/26/24 12:31 98.3 97 98.3 05/26/24 07:45 Nasal Cannula* 2 28 Total Intake and Output 05/25/24 05/25/24 05/26/24 15:00 23:00 07:00 Intake Total 2229 ml 175 ml Output Total 800 ml Balance 1429 ml 175 ml medications Current Medications Medications Dose Ordered Sig/Jason Route Start Time Stop Time Status Last Admin Dose Admin Sodium Chloride 1,000 ml @ 75 mls/hr [id number] IV 05/22/24 15:00 05/26/24 11:46 75 MLS/HR Ondansetron HCl 4 mg Q4HP PRN IV 05/22/24 15:00 05/26/24 13:17 4 MG Acetaminophen 650 mg Q6HP PRN PO 05/22/24 15:00 Allopurinol 100 mg DAILY PO 05/23/24 10:00 05/26/24 08:45 100 MG Citalopram Hydrobromide 20 mg DAILY PO 05/23/24 10:00 05/26/24 08:46 20 MG Lisinopril 10 mg BID PO 05/22/24 22:00 05/26/24 08:45 10 MG Pantoprazole Sodium 40 mg DAILY PO 05/23/24 10:00 05/26/24 08:46 40 MG Hydralazine HCl 10 mg Q6HP PRN IV 05/23/24 05:00 05/24/24 01:34 10 MG Acetaminophen/ Hydrocodone Bitart 1 tab Q4HPRN PRN PO 05/23/24 12:00 Prochlorperazine Edisylate 10 mg Q6HP PRN IV 05/23/24 12:00 05/23/24 12:56 10 MG Atorvastatin Calcium 20 mg DAILY PO 05/24/24 10:00 05/26/24 08:46 20 MG Metoprolol Tartrate 12.5 mg BID PO 05/23/24 22:00 05/26/24 08:46 12.5 MG Nortriptyline HCl 50 mg HS PO 05/23/24 22:00 05/25/24 22:02 50 MG Tamsulosin HCl 0.4 mg QPM PO 05/23/24 18:00 05/25/24 18:03 0.4 MG Enoxaparin Sodium 100 mg Q12HR SC 05/23/24 22:00 05/25/24 21:58 100 MG Morphine Sulfate 4 mg Q4HPRN PRN IV 05/23/24 13:45 05/26/24 13:26 4 MG Diltiazem HCl 60 mg Q6HR PO 05/26/24 12:00 05/26/24 11:46 60 MG objective General Appearance: alert, no distress HEENT: EOMI, PERRLA, normal external inspect of ears, no icterus, no nasal drainage Neck: no carotid bruit, no jugular venous distention (JVD), no lymphadenopathy Chest: normal thorax Respiratory: clear to auscultation, normal air movement Cardiovascular: regular rate and rhythm, no diastolic murmur, no jugular venous distention (JVD), no rub, no systolic murmur Abdominal: soft, no hepatomegaly, no mass, no splenomegaly, no tenderness Genitourinary: grossly normal external Musculoskeletal: no joint tenderness, no swelling Extremities: normal pulses, no calf tenderness, no clubbing, no cyanosis, no edema Skin: no bruising, no jaundice, no rash Neurological: alert, No focal deficit laboratory and microbiology Laboratory Tests 05/25/24 05:38 05/23/24 06:56 Test 05/25/24 05:38 Range/Units Serum Glucose 133 H 74-106 mg/dL Problem List 1. Small bowel obstruction Monitor, surgical consult, GI consult, NPO 2. HLD Monitor 3. Persistent atrial fibrillation Monitor, full dose Lovenox 4. Obesity Monitor 5. Hx gastric bypass Monitor 6. Benign essential HTN Monitor, antihypertensives 7. Gallstones Monitor, surgical consult, GI consult, NPO, HIDA scan Assessment/Plan Subjective Patient is awake and alert. Objective Patient was admitted for abdominal pain related to small bowel obstruction which is currently resolving. Abdominal x-ray shows improvement compared to prior examination. Patient has had 3 bowel movements since being admitted. Patient had a HIDA scan done which was suboptimal. Patient has chronic versus acute cholecystitis. Patient was started on IV antibiotics. Last night patient sustained a fall to his left hip. Imaging shows a fracture. Patient was evaluated by orthopedic surgeon Dr. Hyde. Patient will be scheduled for ORIF in AM. Patient has a history of paroxysmal atrial fibrillation. Apparently he has not been compliant taking his medication. Patient has had several breakthrough tachyarrhythmias needing Cardizem as well as Adenosine IV. Per cardiology patient's rhythm is more stable. Cardiology has cleared patient for procedure. Medically patient is also cleared for surgery. He has a resolving small bowel obstruction. Labs appear to be stable. Plan Patient scheduled for ORIF in AM by Dr. Hyde. Repeat labs. Monitor EKG. Continue cathartics. Dietary Evaluation Review Comments: 1. advance diet as tolerated per MD 2. Consider EN/TPN if Pt remains NPO for 48 hours Expected Outcomes/Goals: 1. Pt will consume >75% estimated needs within 2-3 days Plan discussed with: Patient, Other TETO CRAMER NP May 26, 2024 13:56
[2024-05-26] MEDS ORDERED: PIPERACILLIN-TAZOB 3.375GM 100 ML IV SCH (14:00)
[2024-05-26] MEDS: HYDROcodone-ACET 5/325MG TAB PO PRN (14:46)
[2024-05-26 16:13] LABS: Basophils # (auto) 0 10 ^3/uL (0-0.2); Basophils % (auto) 0.1 % (0.0-2.0); Eosinophils # (auto) 0 10 ^3/uL (0-0.8); Hematocrit 35.1 % (41.0-53.0); Hemoglobin 11.8 g/dL (13.5-17.5); Lymphocytes # (auto) 0.5 10 ^3/uL (0.4-5.4); Lymphocytes % (auto) 7.8 % (10.0-50.0); Mean Corpuscular Hemoglobin 30.1 pg (28.0-32.0); Mean Corpuscular Hgb Conc. 33.6 g/dL (32.0-36.0); Mean Corpuscular Volume 89.7 fL (80.0-100.0); Neutrophils # (auto) 4.4 10 ^3/uL (1.6-8.6); Neutrophils % (auto) 75.1 % (37.0-80.0); Nucleated Red Blood Cells % 0.1 %; Platelet Count (auto) 185 10^3/uL (140-450); Red Blood Cells 3.91 10^6/uL (4.5-5.90); Red Cell Distribution Width 15.9 % (11.8-14.3); White Blood Cell 5.9 10^3/uL (4.4-10.8)
[2024-05-26 16:27] LABS: INR 1.08 (0.9-1.15); Prothrombin Time 11.4 sec (9.3-11.8)
[2024-05-26 16:35] LABS: Alanine Aminotransferase 16 U/L (7-40); Albumin 3.7 g/dL (3.2-4.8); Alkaline Phosphatase 103 U/L (46-116); Anion Gap 6 (5-15); Aspartate Aminotransferase 19 U/L (13-40); BUN/Creatinine Ratio 30.4 (10.0-20.0); Blood Urea Nitrogen 34 mg/dL (9-23); Calcium 9.4 mg/dL (8.7-10.4); Carbon Dioxide 30 mmol/L (20-30); Chloride 96 mmol/L (98-107); Glucose 130 mg/dL (74-106); Potassium 3.7 mmol/L (3.5-5.1); Sodium 132 mmol/L (136-145)
[2024-05-26 16:37] LABS: Bilirubin, Total 0.8 mg/dL (0.2-1.0); Total Protein 6.1 g/dL (5.7-8.2)
[2024-05-26] MEDS: PIPERACILLIN-TAZOB 3.375GM 100 ML IV SCH (21:13)
[2024-05-27] VITALS (10 sets, daily range): BP systolic 106–148; BP diastolic 42–64; PULSE 74–108; RESP 18–20; TEMP 97.8–98.9; O2SAT 91–97
[2024-05-27 07:05] LABS: Basophils # (auto) 0 10 ^3/uL (0-0.2); Basophils % (auto) 0.2 % (0.0-2.0); Eosinophils # (auto) 0 10 ^3/uL (0-0.8); Eosinophils % (auto) 0.1 % (0.0-7.0); Hematocrit 33.6 % (41.0-53.0); Hemoglobin 11.6 g/dL (13.5-17.5); Lymphocytes # (auto) 0.4 10 ^3/uL (0.4-5.4); Lymphocytes % (auto) 6.2 % (10.0-50.0); Mean Corpuscular Hemoglobin 31.1 pg (28.0-32.0); Mean Corpuscular Hgb Conc. 34.5 g/dL (32.0-36.0); Monocytes # (auto) 1.1 10 ^3/uL (0-1.3); Monocytes % (auto) 15.4 % (0.0-12.0); Neutrophils # (auto) 5.4 10 ^3/uL (1.6-8.6); Neutrophils % (auto) 78.1 % (37.0-80.0); Platelet Count (auto) 179 10^3/uL (140-450); Red Blood Cells 3.73 10^6/uL (4.5-5.90); White Blood Cell 6.9 10^3/uL (4.4-10.8)
[2024-05-27 07:10] LABS: INR 1.08 (0.9-1.15); Partial Thromboplastin Time 38.7 SEC (24.5-34.5); Prothrombin Time 11.4 sec (9.3-11.8)
[2024-05-27 07:16] LABS: Alanine Aminotransferase 16 U/L (7-40); Albumin 3.6 g/dL (3.2-4.8); Alkaline Phosphatase 98 U/L (46-116); Anion Gap 8 (5-15); Aspartate Aminotransferase 20 U/L (13-40); BUN/Creatinine Ratio 29.9 (10.0-20.0); Blood Urea Nitrogen 32 mg/dL (9-23); Calcium 9.5 mg/dL (8.7-10.4); Carbon Dioxide 29 mmol/L (20-30); Chloride 95 mmol/L (98-107); Glucose 108 mg/dL (74-106); Potassium 3.5 mmol/L (3.5-5.1); Sodium 132 mmol/L (136-145)
--- NOTE | 2024-05-27 07:34 | DVHPN2 ---
Progress Note - Dictate Date Seen: May 27, 2024 Medical Necessity Reason Pt with a Central, PICC or Fol: No vital signs Vital Sign Date Time Temp Pulse Resp B/P (MAP) Pulse Ox O2 Delivery O2 Flow Rate FiO2 05/27/24 05:13 97.8 92 18 126/64 (84) 92 97.8 05/26/24 20:00 Nasal Cannula* 2 28 Total Intake and Output 05/26/24 05/26/24 05/27/24 15:00 23:00 07:00 Intake Total 1000 ml 1440 ml 1020 ml Output Total 600 ml 825 ml Balance 1000 ml 840 ml 195 ml medications Current Medications Medications Dose Ordered Sig/Jason Route Start Time Stop Time Status Last Admin Dose Admin Sodium Chloride 1,000 ml @ 75 mls/hr [id number] IV 05/22/24 15:00 05/27/24 02:59 75 MLS/HR Ondansetron HCl 4 mg Q4HP PRN IV 05/22/24 15:00 05/26/24 20:11 4 MG Acetaminophen 650 mg Q6HP PRN PO 05/22/24 15:00 Allopurinol 100 mg DAILY PO 05/23/24 10:00 05/26/24 08:45 100 MG Citalopram Hydrobromide 20 mg DAILY PO 05/23/24 10:00 05/26/24 08:46 20 MG Lisinopril 10 mg BID PO 05/22/24 22:00 05/26/24 21:14 10 MG Pantoprazole Sodium 40 mg DAILY PO 05/23/24 10:00 05/26/24 08:46 40 MG Hydralazine HCl 10 mg Q6HP PRN IV 05/23/24 05:00 05/24/24 01:34 10 MG Acetaminophen/ Hydrocodone Bitart 1 tab Q4HPRN PRN PO 05/23/24 12:00 05/26/24 20:11 1 TAB Prochlorperazine Edisylate 10 mg Q6HP PRN IV 05/23/24 12:00 05/23/24 12:56 10 MG Atorvastatin Calcium 20 mg DAILY PO 05/24/24 10:00 05/26/24 08:46 20 MG Metoprolol Tartrate 12.5 mg BID PO 05/23/24 22:00 05/26/24 21:15 12.5 MG Nortriptyline HCl 50 mg HS PO 05/23/24 22:00 05/26/24 21:24 50 MG Tamsulosin HCl 0.4 mg QPM PO 05/23/24 18:00 05/26/24 18:01 0.4 MG Enoxaparin Sodium 100 mg Q12HR SC 05/23/24 22:00 05/26/24 21:14 100 MG Morphine Sulfate 4 mg Q4HPRN PRN IV 05/23/24 13:45 05/27/24 03:04 4 MG Diltiazem HCl 60 mg Q6HR PO 05/26/24 12:00 05/26/24 18:03 60 MG Piperacillin Sod/ Tazobactam Sod 100 ml @ 25 mls/hr Q8HR IV 05/26/24 22:00 05/27/24 05:14 25 MLS/HR laboratory and microbiology Laboratory Tests 05/27/24 05:08 Test 05/27/24 05:08 Range/Units Serum Glucose 108 H 74-106 mg/dL Assessment/Plan Had mechanical fall and found to have hip fracture. Patient is a 74-year-old gentleman who presented on May 22, 2024 for epigastric pain. It seems that he ate sandwich in this was followed by repeated abdominal pain and vomiting. He has been admitted with small-bowel obstruction. He also was found to have gallstones and gastric outlet obstruction. He has been seen by surgery and GI. He has been having NG tube. Patient does have history of paroxysmal AFib and is on Eliquis as outpatient. On 05/24 2024, the patient was found to have tachyarrhythmia and cardiology was involved for its evaluation and management. Telemetry revealed tachyarrhythmia in the rate of 150s. Tele was in favor of SVT. Patient was attached to the monitor and 6 mg of adenosine was given which resulted in breaking of the tachyarrhythmia inpatient been back to sinus rhythm. As per patient, he usually follows with Cardiology in [facility]. As per patient, he did have angiogram (cardiac catheterization some years ago and was told that it was normal findings). Lying flat in bed and not in acute distress. No JVD. Mucosa is pink and wet. No carotid bruit. No goiter. Lungs are clear to auscultation. At the time of evaluation the patient started to be in tachyarrhythmia and in palpitation. Later, heart rate decreased. No thrill/gallop. Abdomen is soft. Extremities do not reveal edema Past medical history includes atrial fibrillation (on Eliquis as outpatient), DJD, heart failure (diastolic), COPD, hypertension, hyperlipidemia, reported diabetes mellitus, obesity, old history of tonsillectomy and gastric bypass surgery. He is known to have kidney stones. Echocardiogram of January 2020 revealed ejection fraction of 60% and biatrial enlargement Creatinine: 1.0 - 1.02 - 1.12 - 1.24 - 1.12 - 1.07 Potassium: 4.3 - 4.4 - 4.9 - 3.7 - 3.7 - 3.5 Troponin (high sensitive): 19 - 11 TSH: 3.28 CT of the abdomen and pelvis revealed: IMPRESSION: 1. Cholelithiasis with the gallbladder distended. 2. Postop changes to the stomach with a fluid-filled distended stomach and dilated fluid-filled small bowel findings suggest small bowel obstruction. 3. Multiple bilateral nonobstructing renal calculi. 4. Prosthesis in the right hip. Chest x-ray revealed: Frontal chest radiograph demonstrates no acute osseous or superficial soft tissue abnormalities. Enteric tube visualized overlying the plane of the stomach. The trachea is midline. The cardiac silhouette and mediastinum are within normal limits. No pneumothorax, pleural effusions, or consolidations. Partially visualized gaseous distended loops of bowel. HIDA scan reported: IMPRESSION: 1. Findings may reflect chronic cholecystitis, cannot exclude acute cholecystitis due to lack of 30-60 minute images. KUB revealed: IMPRESSION: Findings concerning for small bowel obstruction versus ileus. Repeat KUB revealed: FINDINGS/IMPRESSION: Dilated loops of small bowel with gas and stool visualized in the colon. Findings appear improved compared to prior exam. Left Hip Xry: FINDINGS/IMPRESSION: There is a displaced and impacted left intertrochanteric fracture. Patient is status post right hip arthroplasty. EKG revealed SVT Tele revealed SVT which later transitioned into sinus rhythm Echocardiogram revealed: Technically limited study secondary to poor acoustic windows. Left ventricle: Mild concentric left ventricular hypertrophy was seen. LVEF was 55-60%. Right ventricle was normal size with normal systolic function. Both atria were mildly dilated. Aortic valve was not well visualized. Aortic sclerosis with no stenosis was observed. [id number] aortic insufficiency was observed. Mild mitral/tricuspid regurgitation was seen. Tricuspid valve was not well visualized. Right ventricular systolic pressure was assessed around 25 mm Hg. There was no pericardial effusion. Ascending aorta was 4.5 cm. Patient is a 74-year-old gentleman who presented with abdominal pain and is being managed for small bowel obstruction. He does have history of paroxysmal AFib. Has not been taking his medications regularly and this was followed with tachyarrhythmia. Tachyarrhythmia was in favor of SVT. SVT responded to adenosine Small-bowel obstruction Obesity History of gastric bypass Paroxysmal AFib SVT Status post adenosine management Diabetes mellitus Obesity, morbid Cardiac suggestion for management: For now, manage on telemetry Follow-up electrolytes and kidney function tests and correct abnormalities Keep potassium above 4 and magnesium above 2 Continue Cardizem Continue metoprolol tartrate Evaluation and management of gallstones/gastric outlet obstruction as per primary team/GI/surgery Long-term continuation of anticoagulation is suggested (for now patient on Lovenox). Today on hold on preparation for orthopaedic surgery. Cardiac felix, patient is moderate risk patient for moderate risk Orthopaedic surgery. Cardiac felix, you can proceed with surgery under appropriate intra and post operative hemodynamic monitoring. Further evaluation and management depends on the above and clinical course A total of 55 minutes was spent reviewing the patient record, examining the patient, making a diagnostic and therapeutic plan, discussing this plan with medical personnel, following up on diagnostic studies and following the patient for clinical stability excluding any and all procedures. At least 50% of this time was spent in direct, [id number] contact. Thank you for allowing me to participate in this patient's care. Further recommendations will depend on patient's clinical course. Please do not hesitate to contact me if you have any questions or concerns. This medical document was created using electronic medical record system with [id number] dictation system. Although this document has been carefully reviewed, there may still be some phonetic and typographical errors. These areas are purely typographical due to the imperfection of the software programs, and do not reflect any compromise in the patient's medical care. Dietary Evaluation Review Comments: 1. advance diet as tolerated per MD 2. Consider EN/TPN if Pt remains NPO for 48 hours Expected Outcomes/Goals: 1. Pt will consume >75% estimated needs within 2-3 days Plan discussed with: Patient, Other (nurse) BROOKS PRITCHARD MD May 27, 2024 07:34
--- NOTE | 2024-05-27 12:06 | DVHPN2 ---
Progress Note - Dictate Date Seen: May 27, 2024 Medical Necessity Reason Pt with a Central, PICC or Fol: No vital signs Vital Sign Date Time Temp Pulse Resp B/P (MAP) Pulse Ox O2 Delivery O2 Flow Rate FiO2 05/27/24 11:45 97 119/63 05/27/24 08:49 98.3 18 95 98.3 05/27/24 08:00 Nasal Cannula* 2 28 Total Intake and Output 05/26/24 05/26/24 05/27/24 15:00 23:00 07:00 Intake Total 1000 ml 1440 ml 1020 ml Output Total 600 ml 825 ml Balance 1000 ml 840 ml 195 ml medications Current Medications Medications Dose Ordered Sig/Jason Route Start Time Stop Time Status Last Admin Dose Admin Sodium Chloride 1,000 ml @ 75 mls/hr [id number] IV 05/22/24 15:00 05/27/24 02:59 75 MLS/HR Ondansetron HCl 4 mg Q4HP PRN IV 05/22/24 15:00 05/26/24 20:11 4 MG Acetaminophen 650 mg Q6HP PRN PO 05/22/24 15:00 Allopurinol 100 mg DAILY PO 05/23/24 10:00 05/27/24 09:00 100 MG Citalopram Hydrobromide 20 mg DAILY PO 05/23/24 10:00 05/27/24 09:00 20 MG Lisinopril 10 mg BID PO 05/22/24 22:00 05/27/24 09:00 10 MG Pantoprazole Sodium 40 mg DAILY PO 05/23/24 10:00 05/27/24 09:00 40 MG Hydralazine HCl 10 mg Q6HP PRN IV 05/23/24 05:00 05/24/24 01:34 10 MG Acetaminophen/ Hydrocodone Bitart 1 tab Q4HPRN PRN PO 05/23/24 12:00 05/26/24 20:11 1 TAB Prochlorperazine Edisylate 10 mg Q6HP PRN IV 05/23/24 12:00 05/23/24 12:56 10 MG Atorvastatin Calcium 20 mg DAILY PO 05/24/24 10:00 05/27/24 09:00 20 MG Metoprolol Tartrate 12.5 mg BID PO 05/23/24 22:00 05/27/24 09:01 12.5 MG Nortriptyline HCl 50 mg HS PO 05/23/24 22:00 05/26/24 21:24 50 MG Tamsulosin HCl 0.4 mg QPM PO 05/23/24 18:00 05/26/24 18:01 0.4 MG Enoxaparin Sodium 100 mg Q12HR SC 05/23/24 22:00 05/26/24 21:14 100 MG Morphine Sulfate 4 mg Q4HPRN PRN IV 05/23/24 13:45 05/27/24 03:04 4 MG Diltiazem HCl 60 mg Q6HR PO 05/26/24 12:00 05/27/24 11:45 60 MG Piperacillin Sod/ Tazobactam Sod 100 ml @ 25 mls/hr Q8HR IV 05/26/24 22:00 05/27/24 05:14 25 MLS/HR objective General Appearance: alert, no distress HEENT: EOMI, PERRLA, normal external inspect of ears, no icterus, no nasal drainage Neck: no carotid bruit, no jugular venous distention (JVD), no lymphadenopathy Chest: normal thorax Respiratory: clear to auscultation, normal air movement Cardiovascular: regular rate and rhythm, no diastolic murmur, no jugular venous distention (JVD), no rub, no systolic murmur Abdominal: soft, no hepatomegaly, no mass, no splenomegaly, no tenderness Genitourinary: grossly normal external Musculoskeletal: no joint tenderness, no swelling Extremities: normal pulses, no calf tenderness, no clubbing, no cyanosis, no edema Skin: no bruising, no jaundice, no rash Neurological: alert, No focal deficit laboratory and microbiology Laboratory Tests 05/27/24 05:08 Test 05/27/24 05:08 Range/Units Serum Glucose 108 H 74-106 mg/dL Problem List 1. Small bowel obstruction Monitor, surgical consult, GI consult, NPO 2. HLD Monitor 3. Persistent atrial fibrillation Monitor, full dose Lovenox 4. Obesity Monitor 5. Hx gastric bypass Monitor 6. Benign essential HTN Monitor, antihypertensives 7. Gallstones Monitor, surgical consult, GI consult, NPO, HIDA scan Assessment/Plan Subjective Patient is awake and alert. Objective Patient is currently n.p.o. waiting for ORIF of left hip. Patient had a fall in the hospital where he landed on his gluteal and left hip area. Patient was seen by orthopedic surgeon. He is pending surgery at 4 PM today. Patient was originally admitted for abdominal pain related to small bowel obstruction and possible chronic versus acute Janna. Patient was seen by general surgery. He has had 3 bowel movements since admitted. Recent imaging shows resolving small bowel obstruction. Plan Surgery to reevaluate patient for possible chronic versus acute cholecystitis. Patient scheduled for ORIF of left hip today. Monitor intake and output. Monitor bowel movements. Continue antibiotics for possible cholecystitis. Dietary Evaluation Review Comments: 1. advance diet as tolerated per MD 2. Consider EN/TPN if Pt remains NPO for 48 hours Expected Outcomes/Goals: 1. Pt will consume >75% estimated needs within 2-3 days Plan discussed with: Patient, Other TETO CRAMER NP May 27, 2024 12:06
--- NOTE | 2024-05-27 12:19 | ECG ---
[facility] Test Date: 2024-05-22 Test Time: 09:28:30 Pat Name: EDDIE WRIGHT Department: ER Room: 0232T Gender: M General Dentist: JENNA : 1950 Requested By: HERACLIO CROWE Order Number: [id number] Reading MD: Raul Morales Measurements Intervals [place] Rate: 76 P: 0 IL: 183 QRS: -45 QRSD: 101 T: -41 QT: 347 QTc: 391 Interpretive Statements Sinus rhythm LAD, consider left anterior fascicular block Low voltage, precordial leads Borderline T abnormalities, diffuse leads Electronically Signed On 05-27-2024 12:19:15 PDT by Raul Morales Please click the below link to view image of tracing.
[2024-05-27] MEDS ORDERED: KETAMINE 50mg/ML 1ml syringe ONE (14:12)
[2024-05-27] MEDS ORDERED: MIDAZOLAM HCL 2MG/2ML 2ml VIAL (1mg/ml) ONE (14:12)
[2024-05-27] MEDS ORDERED: SODIUM CHLORIDE LOCK 10 ML ONE (14:12)
[2024-05-27] MEDS ORDERED: ONDANSETRON HCL 4 MG/2 ML VIAL ONE (14:12)
[2024-05-27] MEDS ORDERED: fentaNYL CITRATE 100 MCG/2 ML VL ONE (14:12)
[2024-05-27] MEDS ORDERED: PROPOFOL 10 MG/ML 20 ML IV ONE (14:12)
[2024-05-27] MEDS ORDERED: LIDOCAINE 1% INJ PF 5ML AMP ONE (14:12)
[2024-05-27] MEDS: BUPIVACAINE 0.5% P/F INJ 10 ML VIAL ONE (14:20)
[2024-05-27] MEDS: BUPIVACAINE W/ EPINEPH 0.5% INJ 50ML MDV IJ ONE (15:16)
[2024-05-27] MEDS: BUPIVACAINE HCL 0.25% P/F 10 ML VIAL ONE (15:17)
[2024-05-27] MEDS ORDERED: MORPHINE SULFATE INJ 2 MG/ml SYRG IV PRN (17:00)
[2024-05-27] MEDS: METOCLOPRAMIDE HCL 5MG/ml INJ 2ml VIAL IV ONE (17:00)
[2024-05-27] MEDS ORDERED: HYDROmorphone HCL 2 MG/ML VL/or syr IV PRN ×2 (17:00)
--- NOTE | 2024-05-27 17:14 | DVHOP2 ---
Operative Report - 2 Report Details Date: 05/27/24 Preop Diagnosis: LEFT proximal femur intertrochanteric fracture Postop Diagnosis: same Surgeon: Enzo Macedo MD Sample Preparation Supervisor: none Anesthesiologist: Dr Anderson Anesthesia: Regional Drains: none Implant: Left hip IMrod, with two proximal and one distal screw Consent: The patient was informed of the risks and benefits of the procedure. These include but are not limited to complications of anesthesia, postoperative infection, incomplete relief of symptoms, recurrence of symptoms, damage to blood vessels, nerves and tendons, deep venous thrombosis, pulmonary embolism and possible need for repeat surgery in the future. Complications: none Estimated Blood Loss: 100cc Fluids: 1 L crystalloid Findings: standard intertrochanteric fracture Indications for Surgery: unstable left porxiaml femur fracture with requisite bedrest without fixatioun and comorbidities associated with bedrest Name of Procedure Performed Open reduction internal fixation of left intertrochanteric fracture Procedure Details Procedure Details: Patient brought intot he OR, already on zosyn for ulcers, given spioonal anestihesia by Dr Anderson without complication, transferred to fracture table, well padded perineal post, right leg into well leg casey, left leg in traction, C arm fluoro to reducte the fracture with flexion, traction adduction and i nternal rotation. reduction confirmmed oon AP and LAT fluoro sterile prep left lateral hip and thigh, confirmation left side ORIF left IT fracture correct procedure after timeout review ofo consent and H and P 3 cm incision made proxiaml to the tip of the greater trochanter, guide pin placed throught the tip of the grater trochanter down the IM calnal, confirmation of position on fluoro, reaming of entry holhe, placement of IM speedy 125 deg, guides use to place two screws inthe femoral neck and head confirmation of good placement on AP and LAT fluoro views. placement of distal interolocking screww with guide, confirmation of position with AP LAT fluoro irrigation, closure with 0 and 2.0 vicryl, deep fascia, subcutaneous, lavern, dry dressing no drains specimmens complications Specimen: none Condition Stable Disposition Still a Patient ENZO MACEDO MD May 27, 2024 17:14
[2024-05-27] MEDS: LACTATED RINGER'S 1,000 ML IV SCH (17:15)
--- NOTE | 2024-05-27 17:47 | DVH ---
CLINICAL INDICATION: LEFT HIP ORIF TECHNIQUE: 5 radiographic views of the left hip were obtained. Comparison: None FINDINGS/IMPRESSION: Fluoro time 25.4 seconds Radiation dose: 3.33 mGy
[2024-05-27] MEDS: Juven Orange Powder PACKET 27.5gm PO SCH (18:00)
--- NOTE | 2024-05-27 18:09 | DVH ---
EXAM: XY C ARM FLUOROSCOPY UP TO 60MIN HISTORY: ORIF LEFT HIP FLUOROSCOPY TIME: 25.4 FLUOROSCOPY IMAGES: 6 TECHNIQUE: Intraoperative radiographs of the left hip were obtained. COMPARISON: None FINDINGS/IMPRESSION: Images available on same day left hip radiograph exam. Refer to intraoperative report for further evaluation.
[2024-05-27] MEDS: ENOXAPARIN SOD 80 MG/0.8ML SYRINGE SC SCH (21:42)
[2024-05-28] VITALS (7 sets, daily range): BP systolic 114–133; BP diastolic 53–74; PULSE 81–111; RESP 18–21; TEMP 98.1–99; O2SAT 92–95
--- NOTE | 2024-05-28 11:00 | DVHPN2 ---
Date of Progress Note Date of Progress Note Date of Progress Note: 05/28/24 Date of Admission Date of Admission Date of Admission: Date of Admission: May 22, 2024 at 14:57 Overnight Events Overnight events Overnight Events Pt verito POs, able to void Past Medical History Past Medical History Past Medical History Pt denies CVA, [place], DM Admitted 05/22/24 for SBO, treated with NG tube,obs. Pt passing gas this AM, passing stool this AM. NG tube out this AM Mechanical fall yesterday with left groin pain. Pt denies DM, [place], CVA Past Surgical History Past Surgical History Past Surgical History RIGHT roosevelt hip for femoral neck fracture Family History Family History Family History: Alcoholism Cancer Cancer of colon Family history: Arthritis Family history: Asthma Family history: Blood disorder Family history: Cardiovascular disease Family history: Depression (situation) Family history: Diabetes mellitus Family history: Glaucoma Family history: Hypercholesterolemia (situation) Family history: Hypertension Family history: Thyroid disorder Malignant melanoma Malignant neoplasm of ovary Seizure disorder (situation) Stroke No Family History of: Family history: Alzheimer's disease Family history: Congenital anomaly Family history: Coronary thrombosis Family history: Diabetes in Family history: Osteoporosis Family history: Suicide (situation) Ischemic heart disease Malignant neoplasm of breast Malignant neoplasm of lung Prostate cancer Renal stone Allergies: Coded Allergies: Amiodarone (Verified Allergy, Unknown, 08/11/20) Diphenhydramine (Verified Allergy, Unknown, 08/11/20) Furosemide (Verified Allergy, Unknown, 08/11/20) Ibuprofen (Verified Allergy, Unknown, 08/11/20) Naproxen (Verified Allergy, Unknown, 08/11/20) Sulfa Drugs (Verified Allergy, Unknown, 08/11/20) Home Meds Active Scripts Prednisone (Prednisone) 20 Mg Tab, 60 MG PO DAILY for 3 Days, #9 MG Prov:REILLY REYES DO 12/13/21 Apixaban Base (ELIQUIS) 5 Mg Tab, 5 MG PO BID, #60 TAB Prov:JUANY ROBERTS MD 02/07/20 Metoprolol Tartrate (Lopressor) 25 Mg Tb, 12.5 MG PO BID, #30 TAB Check blood pressure and pulse prior to dose. Hold medication if systolic blood pressure is below 120 or pulse less than 70 Prov:JUANY ROBERTS MD 02/07/20 Reported Medications Allopurinol (Allopurinol) 300 Mg Tab, 300 MG PO Q12HR for 30 Days, MG 05/23/24 Duloxetine Hcl (Cymbalta) 60 Mg Cap, 1 CAP PO DAILY, #90 CAP 3 Refills 05/23/24 Omeprazole (Gnp Omeprazole) 20 Mg Tab, 1 TAB PO DAILY, #90 TAB 1 Refill 05/23/24 Tamsulosin Hcl (Tamsulosin Hcl) 0.4 Mg Cap, 0.4 MG PO QPM for 30 Days, MG 05/23/24 Diltiazem Hcl (Diltiazem Hcl) 60 Mg Tab, 60 MG PO BID for 30 Days, MG 05/23/24 Atorvastatin Calcium (Lipitor) 20 Mg Tab, 1 TAB PO DAILY, #90 TAB 1 Refill 05/23/24 Docusate Sodium (Colace) 100 Mg Cap, 1 CAP PO BID, #30 CAP 05/23/24 Pseudoephedrine HCl ([facility] 12 Hour Nasal [place]) 120 Mg Tab, 60 MG PO BID, TAB 05/23/24 Cetirizine Hcl (Kls Aller-Maria Teresa) 10 Mg Tab, 1 TAB PO DAILY, #30 TAB 3 Refills 05/23/24 Metoprolol Tartrate (Metoprolol Tartrate) 25 Mg Tab, 10 MG PO BID for 30 Days, MG 02/21/20 Lisinopril (Lisinopril) 10 Mg Tab, 10 MG PO BID for 30 Days, MG 02/21/20 Diazepam (Diazepam) 10 Mg Tab, 30 MG PO BID, TAB 02/21/20 Hydrochlorothiazide (Hydrochlorothiazide) 12.5 Mg Cap, 12.5 MG PO DAILY for 30 Days, MG 02/21/20 Nortriptyline Hcl (PAMELOR CAPSULE) 25 Mg Cp, 50 MG PO HS, CP 03/27/14 Allopurinol (Zyloprim) 100 Mg Tab 01/24/13 Omeprazole (Sm Omeprazole) 20 Mg Tab, 40 MG PO DAILY 01/24/13 Docusate Calcium (Sb Stool Softener) 240 Mg Cap, PO 01/24/13 Nitroglycerin (Nitroglycerin) 0.4 Mg Sl, DAILYP 01/24/13 Trazodone Hcl (Trazodone Hcl) 100 Mg Tab, PO HS 01/24/13 Atorvastatin Calcium (ATORVASTATIN CALCIUM) 40 Mg Tab, PO HS 01/24/13 Senna (Sennosides) 8.6 Mg Tab, PO DAILYP 01/24/13 Potassium Chloride (K-Tabs) 10 Meq Tab, PO DAILY 01/24/13 Multiple Vitamin (Mvi Tab) 1 Tab Tb 01/13/12 [place]-3 Fatty Acids (Fish Oil) 1,000 Mg Cap 01/13/12 Epinephrine Hcl (Anaphylaxis) (Epipen) 0.3 Mg Inj 01/13/12 Citalopram Hydrobromide (Citalopram Hydrobromide) 20 Mg Tab 01/13/12 Cholecalciferol (D 400) 400 Unit Chw 01/13/12 Albuterol Sulfate (Albuterol Sulfate) 0.5 % Neb 01/13/12 Current Medications Current Medications Medications (Trade) Dose Ordered Sig/Jason Route PRN Reason Start Time Stop Time Status Last Admin Enteral Nutritional Formula (Jose Laurens Powder PACKET) 27.5 gm BIDWM PO 05/27/24 18:00 Enoxaparin Sodium (Lovenox) 80 mg Q12HR SC 05/27/24 22:00 05/28/24 09:39 Hydromorphone HCl (Dilaudid Injection) 0.5 mg Q10M PRN IV SEVERE PAIN (7-10 PAIN SCALE) 05/27/24 17:00 05/27/24 17:41 DC Hydromorphone HCl (Dilaudid Injection) 0.25 mg Q10M PRN IV MODERATE PAIN (4-6 PAIN SCALE) 05/27/24 17:00 05/27/24 17:31 DC Morphine Sulfate 1 mg Q30M PRN IV SEVERE PAIN (7-10 PAIN SCALE) 05/27/24 17:00 05/27/24 19:01 DC Lactated Ringer's 1,000 ml @ 100 mls/hr Q10H IV 05/27/24 17:15 Physical Examination General Examination: Last Vital sign Vital Signs Date Time Temp Pulse Resp B/P (MAP) Pulse Ox O2 Delivery O2 Flow Rate FiO2 05/28/24 09:39 99 127/63 05/28/24 06:45 19 05/28/24 05:00 98.9 93 98.9 05/27/24 20:00 Nasal Cannula* 2 28 General: General: No apparent distress, appears comfortable. Cooperative. Extremities: Left hip, incision not draining NVI B LE Skin: no change, right LE ulcer being treated by wound care Neurological Examination: Neurological Examination: Mental Status: Cranial Nerves: Motor Examination: Reflexes: Sensory: Coordination: Gait: NVI Labs: Labs: Laboratory Tests Test 05/22/24 10:29 05/23/24 06:56 05/24/24 00:36 05/24/24 05:26 Range/Units White Blood Count 8.6 6.8 4.4-10.8 10^3/uL Red Blood Count 4.76 4.28 L 4.5-5.90 10^6/uL Hemoglobin 14.4 13.3 L 13.5-17.5 g/dL Hematocrit 43.1 38.5 #L 41.0-53.0 % Mean Corpuscular Volume 90.5 90.0 80.0-100.0 fL Mean Corpuscular Hemoglobin 30.2 31.0 28.0-32.0 pg Mean Corpuscular Hemoglobin Concent 33.4 34.5 32.0-36.0 g/dL Red Cell Distribution Width 16.6 H 16.5 H 11.8-14.3 % Platelet Count 208 186 140-450 10^3/uL Mean Platelet Volume 8.1 8.5 6.9-10.8 fL Neutrophils (%) (Auto) 81.2 H 72.9 37.0-80.0 % Lymphocytes (%) (Auto) 10.5 13.3 10.0-50.0 % Monocytes (%) (Auto) 7.9 13.3 H 0.0-12.0 % Eosinophils (%) (Auto) 0.2 0.2 0.0-7.0 % Basophils (%) (Auto) 0.2 0.3 0.0-2.0 % Neutrophils # (Auto) 7.0 4.9 1.6-8.6 10 ^3/uL Lymphocytes # (Auto) 0.9 0.9 0.4-5.4 10 ^3/uL Monocytes # (Auto) 0.7 0.9 0-1.3 10 ^3/uL Eosinophils # (Auto) 0 0 0-0.8 10 ^3/uL Basophils # (Auto) 0 0 0-0.2 10 ^3/uL Nucleated Red Blood Cells 0.1 0.1 % Sodium Level 135 L 135 L 134 L 136-145 mmol/L Potassium Level 4.3 4.4 3.9 3.5-5.1 mmol/L Chloride Level 101 101 98 98-107 mmol/L Carbon Dioxide Level 26 26 24 20-30 mmol/L Anion Gap 8 8 12 5-15 Blood Urea Nitrogen 16 17 18 9-23 mg/dL Creatinine 1.00 1.02 1.12 0.700-1.30 mg/dL Glomerular Filtration Rate Calc 80 78 70 >90 mL/min BUN/Creatinine Ratio 16.0 16.7 16.1 10.0-20.0 Serum Glucose 123 H 120 H 189 H 74-106 mg/dL Calcium Level 10.4 9.9 10.2 8.7-10.4 mg/dL Troponin I High Sensitivity 19 11 </=54 ng/L Triglycerides Level 93 84 < 150 mg/dL Cholesterol Level 144 < 200 mg/dL LDL Cholesterol 80 < 100 mg/dL HDL Cholesterol 48 40-59 mg/dL Thyroid Stimulating Hormone (TSH) 3.28 0.55-4.78 uIU/mL Total Bilirubin 0.7 0.7 0.2-1.0 mg/dL Aspartate Amino Transferase (AST) 18 17 13-40 U/L Alanine Aminotransferase (ALT) 14 14 7-40 U/L Alkaline Phosphatase 136 H 144 H 46-116 U/L Total Protein 6.5 7.5 5.7-8.2 g/dL Albumin 4.1 4.6 3.2-4.8 g/dL POC Glucose 164 H 70-106 mg/dl Phosphorus Level 3.4 2.4-5.1 mg/dL Magnesium Level 1.6 1.6-2.6 mg/dL Test 05/24/24 12:24 05/24/24 17:39 05/24/24 19:57 05/25/24 05:38 Range/Units POC Glucose 145 H 134 H 70-106 mg/dl Urine Color Yellow Yellow Urine Clarity Clear Clear Urine pH 5.5 5.0-9.0 Urine Specific [place] 1.018 1.001-1.035 Urine Protein 1+ H Negative Urine Ketones Negative Negative Urine Blood Negative Negative /uL Urine Nitrite Negative Negative Urine Bilirubin Negative Negative Urine Urobilinogen Normal Negative mg/dL Urine Leukocyte Esterase Negative Negative /uL Urine RBC 11 0 - 3 /hpf Urine WBC 1 0 - 3 /hpf Urine Squamous Epithelial Cells Few <5 /hpf Urine Bacteria None seen None Seen /hpf Urine Hyaline Casts Few 0 - 2 /lpf Urine Mucus Few None Seen Urine Glucose Normal Normal mg/dL Sodium Level 132 L 136-145 mmol/L Potassium Level 3.7 3.5-5.1 mmol/L Chloride Level 96 L 98-107 mmol/L Carbon Dioxide Level 25 20-30 mmol/L Anion Gap 11 5-15 Blood Urea Nitrogen 28 #H 9-23 mg/dL Creatinine 1.24 0.700-1.30 mg/dL Glomerular Filtration Rate Calc 62 >90 mL/min BUN/Creatinine Ratio 22.6 H 10.0-20.0 Serum Glucose 133 H 74-106 mg/dL Calcium Level 10.1 8.7-10.4 mg/dL Phosphorus Level 2.9 2.4-5.1 mg/dL Magnesium Level 1.9 1.6-2.6 mg/dL Total Bilirubin 0.6 0.2-1.0 mg/dL Aspartate Amino Transferase (AST) 17 13-40 U/L Alanine Aminotransferase (ALT) 16 7-40 U/L Alkaline Phosphatase 133 H 46-116 U/L Total Protein 6.8 5.7-8.2 g/dL Albumin 4.1 3.2-4.8 g/dL Test 05/25/24 05:55 05/25/24 11:21 05/26/24 15:33 05/27/24 05:08 Range/Units POC Glucose 145 H 145 H 70-106 mg/dl White Blood Count 5.9 6.9 4.4-10.8 10^3/uL Red Blood Count 3.91 L 3.73 L 4.5-5.90 10^6/uL Hemoglobin 11.8 L 11.6 L 13.5-17.5 g/dL Hematocrit 35.1 L 33.6 L 41.0-53.0 % Mean Corpuscular Volume 89.7 90.0 80.0-100.0 fL Mean Corpuscular Hemoglobin 30.1 31.1 28.0-32.0 pg Mean Corpuscular Hemoglobin Concent 33.6 34.5 32.0-36.0 g/dL Red Cell Distribution Width 15.9 H 16.0 H 11.8-14.3 % Platelet Count 185 179 140-450 10^3/uL Mean Platelet Volume 8.4 9.0 6.9-10.8 fL Neutrophils (%) (Auto) 75.1 78.1 37.0-80.0 % Lymphocytes (%) (Auto) 7.8 L 6.2 L 10.0-50.0 % Monocytes (%) (Auto) 17.0 H 15.4 H 0.0-12.0 % Eosinophils (%) (Auto) 0.0 0.1 0.0-7.0 % Basophils (%) (Auto) 0.1 0.2 0.0-2.0 % Neutrophils # (Auto) 4.4 5.4 1.6-8.6 10 ^3/uL Lymphocytes # (Auto) 0.5 0.4 0.4-5.4 10 ^3/uL Monocytes # (Auto) 1.0 1.1 0-1.3 10 ^3/uL Eosinophils # (Auto) 0 0 0-0.8 10 ^3/uL Basophils # (Auto) 0 0 0-0.2 10 ^3/uL Nucleated Red Blood Cells 0.1 0.0 % Prothrombin Time 11.4 11.4 9.3-11.8 sec Prothrombin Time INR 1.08 1.08 0.9-1.15 Sodium Level 132 L 132 L 136-145 mmol/L Potassium Level 3.7 3.5 3.5-5.1 mmol/L Chloride Level 96 L 95 L 98-107 mmol/L Carbon Dioxide Level 30 29 20-30 mmol/L Anion Gap 6 8 5-15 Blood Urea Nitrogen 34 H 32 H 9-23 mg/dL Creatinine 1.12 1.07 0.700-1.30 mg/dL Glomerular Filtration Rate Calc 70 74 >90 mL/min BUN/Creatinine Ratio 30.4 H 29.9 H 10.0-20.0 Serum Glucose 130 H 108 H 74-106 mg/dL Hemoglobin A1c 5.2 <5.7 % A1C Calcium Level 9.4 9.5 8.7-10.4 mg/dL Total Bilirubin 0.8 1.0 0.2-1.0 mg/dL Aspartate Amino Transferase (AST) 19 20 13-40 U/L Alanine Aminotransferase (ALT) 16 16 7-40 U/L Alkaline Phosphatase 103 98 46-116 U/L Total Protein 6.1 6.0 5.7-8.2 g/dL Albumin 3.7 3.6 3.2-4.8 g/dL Activated Partial Thromboplast Time 38.7 H 24.5-34.5 SEC Assessment/Plan Assessment/Plan Assessment and Plan:Ferny Ferrera is a 74 year old male POD1 s/p ORIF left hip IT fracture 1) PT, WBAT L LE with full support 2) wound care R LE clear for dc tomorrow from ortho view follow up ortho clinic 2-3 wks with XR left hip 2V Plan discussed with: Patient NIMO MACEDO MD May 28, 2024 11:00
--- NOTE | 2024-05-28 14:17 | DVHPN2 ---
Progress Note Date Seen: May 28, 2024 Medical Necessity Reason Pt with a Central, PICC or Fol: No Subjective Review of Systems: RESPIRATORY:Normal Objective vital signs Vital Sign Date Time Temp Pulse Resp B/P (MAP) Pulse Ox O2 Delivery O2 Flow Rate FiO2 05/28/24 12:26 94 133/54 05/28/24 08:16 18 95 Nasal Cannula* 2 28 05/28/24 05:00 98.9 98.9 Total Intake and Output 05/27/24 05/27/24 05/28/24 15:00 23:00 07:00 Intake Total 1300 ml Output Total 300 ml 950 ml Balance -300 ml 350 ml medications Current Medications Medications Dose Ordered Sig/Jason Route Start Time Stop Time Status Last Admin Dose Admin Sodium Chloride 1,000 ml @ 75 mls/hr [id number] IV 05/22/24 15:00 05/28/24 04:20 75 MLS/HR Ondansetron HCl 4 mg Q4HP PRN IV 05/22/24 15:00 05/28/24 13:28 4 MG Acetaminophen 650 mg Q6HP PRN PO 05/22/24 15:00 Allopurinol 100 mg DAILY PO 05/23/24 10:00 05/28/24 09:37 100 MG Citalopram Hydrobromide 20 mg DAILY PO 05/23/24 10:00 05/28/24 09:37 20 MG Lisinopril 10 mg BID PO 05/22/24 22:00 05/28/24 09:38 10 MG Pantoprazole Sodium 40 mg DAILY PO 05/23/24 10:00 05/28/24 09:37 40 MG Hydralazine HCl 10 mg Q6HP PRN IV 05/23/24 05:00 05/24/24 01:34 10 MG Acetaminophen/ Hydrocodone Bitart 1 tab Q4HPRN PRN PO 05/23/24 12:00 05/28/24 09:37 1 TAB Prochlorperazine Edisylate 10 mg Q6HP PRN IV 05/23/24 12:00 05/23/24 12:56 10 MG Atorvastatin Calcium 20 mg DAILY PO 05/24/24 10:00 05/28/24 09:37 20 MG Metoprolol Tartrate 12.5 mg BID PO 05/23/24 22:00 05/28/24 09:39 12.5 MG Nortriptyline HCl 50 mg HS PO 05/23/24 22:00 05/27/24 21:39 50 MG Tamsulosin HCl 0.4 mg QPM PO 05/23/24 18:00 05/27/24 18:40 0.4 MG Morphine Sulfate 4 mg Q4HPRN PRN IV 05/23/24 13:45 05/28/24 06:15 4 MG Diltiazem HCl 60 mg Q6HR PO 05/26/24 12:00 05/28/24 12:26 60 MG Piperacillin Sod/ Tazobactam Sod 100 ml @ 25 mls/hr Q8HR IV 05/26/24 22:00 05/28/24 13:28 25 MLS/HR Enteral Nutritional Formula 27.5 gm BIDWM PO 05/27/24 18:00 05/28/24 08:00 27.5 GM Enoxaparin Sodium 80 mg Q12HR SC 05/27/24 22:00 05/28/24 09:39 80 MG Lactated Ringer's 1,000 ml @ 100 mls/hr Q10H IV 05/27/24 17:15 Examination: GENERAL:Normal, LUNGS:Normal, CVS:Normal, ABDOMEN:Normal, SKIN:Normal, NEURO:Normal laboratory and microbiology Laboratory Tests 05/27/24 05:08 Test 05/27/24 05:08 Range/Units Serum Glucose 108 H 74-106 mg/dL Labs and/or images reviewed: Labs reviewed by me, Image(s) reviewed by me Problem List/Assessment/Plan Problem List/Assessment/Plan 1. Small bowel obstruction Monitor, surgical consult, GI consult, NPO 2. HLD Monitor 3. Persistent atrial fibrillation Monitor, full dose Lovenox 4. Obesity Monitor 5. Hx gastric bypass Monitor 6. Benign essential HTN Monitor, antihypertensives 7. Gallstones Monitor, surgical consult, GI consult, NPO, HIDA scan Assessment/Plan Subjective Patient is awake and alert. Objective Patient is currently n.p.o. waiting for ORIF of left hip. Patient had a fall in the hospital where he landed on his gluteal and left hip area. Patient is S/P ORIF by Dr. Eden. Patient was originally admitted for abdominal pain related to small bowel obstruction and possible chronic versus acute Janna. Patient was seen by general surgery. He has had 3 bowel movements since admitted. Today patient has had severe vomiting and nausea. We will repeat KUB to rule out obstruction. Case was discussed with general surgeon Dr. Lorenz, patient will be evaluated by Dr. Lorenz today. If concerns remain for small bowel obstruction patient will need to be transferred to higher level care due to history bariatric surgery. Plan Surgery to reevaluate patient for possible chronic versus acute cholecystitis, placed NPO, placed on D5 NS at 75. Patient scheduled for ORIF of left hip y esterday, patient will be cleared today by Orthopedic for discharge. Monitor intake and output. Monitor bowel movements. Continue antibiotics for possible cholecystitis. Plan discussed with: Patient My Orders My Orders Orders - KONRAD ROCKWELL Procedure Category Date Status Time Kub Abdomen Single XY 05/28/24 Logged View 13:53 Npo (Nothing By DIET 05/28/24 Transmitted Mouth) Diet Dinner D5w/Sod Chlo 0.9% Ns PHA 05/28/24 Transmitted 14:15 Dietary Evaluation Review Comments: 1. advance diet as tolerated per MD 2. Consider EN/TPN if Pt remains NPO for 48 hours Expected Outcomes/Goals: 1. Pt will consume >75% estimated needs within 2-3 days Date of Service: May 28, 2024 Billing Provider: RICA HELLER MD Common Visit Codes: [id number] INP/OBS CARE (MOD) KONRAD ROCKWELL May 28, 2024 14:17
--- NOTE | 2024-05-28 14:41 | DVH ---
Date: 05/28/2024 01:53 PM Examination: XY KUB ABDOMEN SINGLE VIEW History: ilues Comparison: XY KUB ABDOMEN SINGLE VIEW on DOS: 05/25/24, XY KUB ABDOMEN SINGLE VIEW on DOS: 05/24/24 TECHNIQUE: Frontal views of the abdomen was obtained. FINDINGS: There are air-filled dilated small bowel loops. Air intermixed with stool is seen in the colon. There is internal fixation hardware in the left femur. There is right hip arthroplasty. IMPRESSION: 1. There are air-filled dilated small bowel loops. Air and stool is seen within the colon. The findin gs appear mildly improved comparison to the prior study. The findings fairly stable and May relate t o an ileus.. Clinical correlation and continued follow-up is recommended. HS:Y
[2024-05-28 15:13] LABS: Hematocrit 28.6 % (41.0-53.0); Hemoglobin 9.6 g/dL (13.5-17.5); Mean Corpuscular Hemoglobin 30.3 pg (28.0-32.0); Mean Corpuscular Hgb Conc. 33.5 g/dL (32.0-36.0); Mean Corpuscular Volume 90.5 fL (80.0-100.0); Platelet Count (auto) 143 10^3/uL (140-450); Red Blood Cells 3.16 10^6/uL (4.5-5.90); Red Cell Distribution Width 15.6 % (11.8-14.3); White Blood Cell 4.7 10^3/uL (4.4-10.8)
[2024-05-28 15:30] LABS: Alanine Aminotransferase 20 U/L (7-40); Albumin 3.4 g/dL (3.2-4.8); Alkaline Phosphatase 81 U/L (46-116); Anion Gap 7 (5-15); Aspartate Aminotransferase 31 U/L (13-40); Bilirubin, Total 0.9 mg/dL (0.2-1.0); Blood Urea Nitrogen 25 mg/dL (9-23); Calcium 9.6 mg/dL (8.7-10.4); Carbon Dioxide 27 mmol/L (20-31); Chloride 102 mmol/L (98-107); Glucose 131 mg/dL (74-106); Potassium 3.8 mmol/L (3.5-5.1); Sodium 136 mmol/L (136-145)
[2024-05-28 15:31] LABS: Total Protein 5.7 g/dL (5.7-8.2)
[2024-05-28 15:51] LABS: Basophils % (manual) 0 (0.0-2.0); Blast Cells 0; Eosinophils % (manual) 0 (0-7); Metamyelocytes % 0; Myelocytes % 0; Promyelocytes % 0; Reactive Lymphocytes 0
--- NOTE | 2024-05-28 16:28 | DVHPN2 ---
Progress Note - Dictate Date Seen: May 28, 2024 Medical Necessity Reason Pt with a Central, PICC or Fol: No vital signs Vital Sign Date Time Temp Pulse Resp B/P (MAP) Pulse Ox O2 Delivery O2 Flow Rate FiO2 05/28/24 12:26 94 133/54 05/28/24 08:16 18 95 Nasal Cannula* 2 28 05/28/24 05:00 98.9 98.9 Total Intake and Output 05/27/24 05/27/24 05/28/24 15:00 23:00 07:00 Intake Total 1300 ml Output Total 300 ml 950 ml Balance -300 ml 350 ml medications Current Medications Medications Dose Ordered Sig/Jason Route Start Time Stop Time Status Last Admin Dose Admin Sodium Chloride 1,000 ml @ 75 mls/hr [id number] IV 05/22/24 15:00 05/28/24 04:20 75 MLS/HR Ondansetron HCl 4 mg Q4HP PRN IV 05/22/24 15:00 05/28/24 13:28 4 MG Acetaminophen 650 mg Q6HP PRN PO 05/22/24 15:00 Allopurinol 100 mg DAILY PO 05/23/24 10:00 05/28/24 09:37 100 MG Citalopram Hydrobromide 20 mg DAILY PO 05/23/24 10:00 05/28/24 09:37 20 MG Lisinopril 10 mg BID PO 05/22/24 22:00 05/28/24 09:38 10 MG Pantoprazole Sodium 40 mg DAILY PO 05/23/24 10:00 05/28/24 09:37 40 MG Hydralazine HCl 10 mg Q6HP PRN IV 05/23/24 05:00 05/24/24 01:34 10 MG Acetaminophen/ Hydrocodone Bitart 1 tab Q4HPRN PRN PO 05/23/24 12:00 05/28/24 09:37 1 TAB Prochlorperazine Edisylate 10 mg Q6HP PRN IV 05/23/24 12:00 05/23/24 12:56 10 MG Atorvastatin Calcium 20 mg DAILY PO 05/24/24 10:00 05/28/24 09:37 20 MG Metoprolol Tartrate 12.5 mg BID PO 05/23/24 22:00 05/28/24 09:39 12.5 MG Nortriptyline HCl 50 mg HS PO 05/23/24 22:00 05/27/24 21:39 50 MG Tamsulosin HCl 0.4 mg QPM PO 05/23/24 18:00 05/27/24 18:40 0.4 MG Morphine Sulfate 4 mg Q4HPRN PRN IV 05/23/24 13:45 05/28/24 06:15 4 MG Diltiazem HCl 60 mg Q6HR PO 05/26/24 12:00 05/28/24 12:26 60 MG Piperacillin Sod/ Tazobactam Sod 100 ml @ 25 mls/hr Q8HR IV 05/26/24 22:00 05/28/24 13:28 25 MLS/HR Enteral Nutritional Formula 27.5 gm BIDWM PO 05/27/24 18:00 05/28/24 08:00 27.5 GM Enoxaparin Sodium 80 mg Q12HR SC 05/27/24 22:00 05/28/24 09:39 80 MG Lactated Ringer's 1,000 ml @ 100 mls/hr Q10H IV 05/27/24 17:15 Dextrose/Sodium Chloride 1,000 ml @ 75 mls/hr [id number] IV 05/28/24 14:15 laboratory and microbiology Laboratory Tests 05/28/24 14:52 Test 05/28/24 14:52 Range/Units Serum Glucose 131 H 74-106 mg/dL Assessment/Plan Had mechanical fall and found to have hip fracture. S/p ORIF Patient is a 74-year-old gentleman who presented on May 22, 2024 for epigastric pain. It seems that he ate sandwich in this was followed by repeated abdominal pain and vomiting. He has been admitted with small-bowel obstruction. He also was found to have gallstones and gastric outlet obstruction. He has been seen by surgery and GI. He has been having NG tube. Patient does have history of paroxysmal AFib and is on Eliquis as outpatient. On 05/24 2024, the patient was found to have tachyarrhythmia and cardiology was involved for its evaluation and management. Telemetry revealed tachyarrhythmia in the rate of 150s. Tele was in favor of SVT. Patient was attached to the monitor and 6 mg of adenosine was given which resulted in breaking of the tachyarrhythmia inpatient been back to sinus rhythm. As per patient, he usually follows with Cardiology in [facility]. As per patient, he did have angiogram (cardiac catheterization some years ago and was told that it was normal findings). Lying flat in bed and not in acute distress. No JVD. Mucosa is pink and wet. No carotid bruit. No goiter. Lungs are clear to auscultation. At the time of evaluation the patient started to be in tachyarrhythmia and in palpitation. Later, heart rate decreased. No thrill/gallop. Abdomen is soft. Extremities do not reveal edema Past medical history includes atrial fibrillation (on Eliquis as outpatient), DJD, heart failure (diastolic), COPD, hypertension, hyperlipidemia, reported diabetes mellitus, obesity, old history of tonsillectomy and gastric bypass surgery. He is known to have kidney stones. Echocardiogram of January 2020 revealed ejection fraction of 60% and biatrial enlargement Creatinine: 1.0 - 1.02 - 1.12 - 1.24 - 1.12 - 1.07 - 0.96 Potassium: 4.3 - 4.4 - 4.9 - 3.7 - 3.7 - 3.5 - 3.8 Troponin (high sensitive): 19 - 11 TSH: 3.28 CT of the abdomen and pelvis revealed: IMPRESSION: 1. Cholelithiasis with the gallbladder distended. 2. Postop changes to the stomach with a fluid-filled distended stomach and dilated fluid-filled small bowel findings suggest small bowel obstruction. 3. Multiple bilateral nonobstructing renal calculi. 4. Prosthesis in the right hip. Chest x-ray revealed: Frontal chest radiograph demonstrates no acute osseous or superficial soft tissue abnormalities. Enteric tube visualized overlying the plane of the stomach. The trachea is midline. The cardiac silhouette and mediastinum are within normal limits. No pneumothorax, pleural effusions, or consolidations. Partially visualized gaseous distended loops of bowel. HIDA scan reported: IMPRESSION: 1. Findings may reflect chronic cholecystitis, cannot exclude acute cholecystitis due to lack of 30-60 minute images. KUB revealed: IMPRESSION: Findings concerning for small bowel obstruction versus ileus. Repeat KUB revealed: FINDINGS/IMPRESSION: Dilated loops of small bowel with gas and stool visualized in the colon. Findings appear improved compared to prior exam. Repeat KUG revealed: IMPRESSION: 1. There are air-filled dilated small bowel loops. Air and stool is seen within the colon. The findings appear mildly improved comparison to the prior study. The findings fairly stable and May relate to an ileus.. Clinical correlation and continued follow-up is recommended Left Hip Xry: FINDINGS/IMPRESSION: There is a displaced and impacted left intertrochanteric fracture. Patient is status post right hip arthroplasty. EKG revealed SVT Tele revealed SVT which later transitioned into sinus rhythm Echocardiogram revealed: Technically limited study secondary to poor acoustic windows. Left ventricle: Mild concentric left ventricular hypertrophy was seen. LVEF was 55-60%. Right ventricle was normal size with normal systolic function. Both atria were mildly dilated. Aortic valve was not well visualized. Aortic sclerosis with no stenosis was observed. [id number] aortic insufficiency was observed. Mild mitral/tricuspid regurgitation was seen. Tricuspid valve was not well visualized. Right ventricular systolic pressure was assessed around 25 mm Hg. There was no pericardial effusion. Ascending aorta was 4.5 cm. Patient is a 74-year-old gentleman who presented with abdominal pain and is being managed for small bowel obstruction. He does have history of paroxysmal AFib. Has not been taking his medications regularly and this was followed with tachyarrhythmia. Tachyarrhythmia was in favor of SVT. SVT responded to adenosine Small-bowel obstruction Obesity History of gastric bypass Paroxysmal AFib SVT Status post adenosine management Diabetes mellitus Obesity, morbid Cardiac suggestion for management: For now, manage on telemetry Follow-up electrolytes and kidney function tests and correct abnormalities Keep potassium above 4 and magnesium above 2 Continue Cardizem Continue metoprolol tartrate Evaluation and management of gallstones/gastric outlet obstruction as per primary team/GI/surgery Long-term continuation of anticoagulation is suggested (for now patient on Lovenox). Further evaluation and management depends on the above and clinical course A total of 55 minutes was spent reviewing the patient record, examining the patient, making a diagnostic and therapeutic plan, discussing this plan with medical personnel, following up on diagnostic studies and following the patient for clinical stability excluding any and all procedures. At least 50% of this time was spent in direct, [id number] contact. Thank you for allowing me to participate in this patient's care. Further recommendations will depend on patient's clinical course. Please do not hesitate to contact me if you have any questions or concerns. This medical document was created using electronic medical record system with MModal computerized dictation system. Although this document has been carefully reviewed, there may still be some phonetic and typographical errors. These areas are purely typographical due to the imperfection of the software programs, and do not reflect any compromise in the patient's medical care. Dietary Evaluation Review Comments: 1. advance diet as tolerated per MD 2. Consider EN/TPN if Pt remains NPO for 48 hours Expected Outcomes/Goals: 1. Pt will consume >75% estimated needs within 2-3 days Plan discussed with: Other (nurse) BROOKS PRITCHARD MD May 28, 2024 16:28
[2024-05-28 16:29] LABS: Band Neutrophils % (manual) 1; Lymphocytes % (manual) 14 (10.0-50.0); Monocytes % (manual) 16 (0-12); Platelet Estimate Adequate
[2024-05-28] MEDS: D5W/SOD CHLO 0.9% 1,000 ML IV SCH (18:36)
--- NOTE | 2024-05-28 22:22 | DVHPN2 ---
Progress Note Date Seen: May 28, 2024 Medical Necessity Reason Pt with a Central, PICC or Fol: No Objective vital signs Vital Sign Date Time Temp Pulse Resp B/P (MAP) Pulse Ox O2 Delivery O2 Flow Rate FiO2 05/28/24 22:06 81 132/57 05/28/24 20:00 21 95 Nasal Cannula* 3 32 05/28/24 17:00 99.0 99.0 Total Intake and Output 05/27/24 05/27/24 05/28/24 15:00 23:00 07:00 Intake Total 1300 ml Output Total 300 ml 950 ml Balance -300 ml 350 ml medications Current Medications Medications Dose Ordered Sig/Jsaon Route Start Time Stop Time Status Last Admin Dose Admin Sodium Chloride 1,000 ml @ 75 mls/hr [id number] IV 05/22/24 15:00 05/28/24 04:20 75 MLS/HR Ondansetron HCl 4 mg Q4HP PRN IV 05/22/24 15:00 05/28/24 13:28 4 MG Acetaminophen 650 mg Q6HP PRN PO 05/22/24 15:00 Allopurinol 100 mg DAILY PO 05/23/24 10:00 05/28/24 09:37 100 MG Citalopram Hydrobromide 20 mg DAILY PO 05/23/24 10:00 05/28/24 09:37 20 MG Lisinopril 10 mg BID PO 05/22/24 22:00 05/28/24 22:06 10 MG Pantoprazole Sodium 40 mg DAILY PO 05/23/24 10:00 05/28/24 09:37 40 MG Hydralazine HCl 10 mg Q6HP PRN IV 05/23/24 05:00 05/24/24 01:34 10 MG Acetaminophen/ Hydrocodone Bitart 1 tab Q4HPRN PRN PO 05/23/24 12:00 05/28/24 09:37 1 TAB Prochlorperazine Edisylate 10 mg Q6HP PRN IV 05/23/24 12:00 05/28/24 22:05 10 MG Atorvastatin Calcium 20 mg DAILY PO 05/24/24 10:00 05/28/24 09:37 20 MG Metoprolol Tartrate 12.5 mg BID PO 05/23/24 22:00 05/28/24 22:06 12.5 MG Nortriptyline HCl 50 mg HS PO 05/23/24 22:00 05/28/24 22:06 50 MG Tamsulosin HCl 0.4 mg QPM PO 05/23/24 18:00 05/27/24 18:40 0.4 MG Morphine Sulfate 4 mg Q4HPRN PRN IV 05/23/24 13:45 05/28/24 06:15 4 MG Piperacillin Sod/ Tazobactam Sod 100 ml @ 25 mls/hr Q8HR IV 05/26/24 22:00 05/28/24 22:07 25 MLS/HR Enteral Nutritional Formula 27.5 gm BIDWM PO 05/27/24 18:00 05/28/24 08:00 27.5 GM Enoxaparin Sodium 80 mg Q12HR SC 05/27/24 22:00 05/28/24 22:08 80 MG Lactated Ringer's 1,000 ml @ 100 mls/hr Q10H IV 05/27/24 17:15 Dextrose/Sodium Chloride 1,000 ml @ 75 mls/hr [id number] IV 05/28/24 14:15 05/28/24 20:40 75 MLS/HR Diltiazem HCl 10 mg Q6HR IV 05/29/24 00:00 laboratory and microbiology Laboratory Tests 05/28/24 14:52 Test 05/28/24 14:52 Range/Units Serum Glucose 131 H 74-106 mg/dL Problem List/Assessment/Plan Problem List/Assessment/Plan AFEBRILE VSS ABD SOFT NON TENDER N/V BM + FLATUS + R/O SBO SP GASTRIC BYPASS KEEP NPO CONSIDER TRANSFER TO HIGHER LEVEL OF CARE IF NO RESOLUTION AND SURGERY INDICATED AND CONSIDERED Plan discussed with: Patient, Other My Orders My Orders Orders - MARTHA ALVARES MD Procedure Category Date Status Time * Sorority Mother CONS 05/28/24 Transmitted Consult Dietary Evaluation Review Comments: 1. advance diet as tolerated per 2. Consider EN/TPN if Pt remains NPO for 48 hours Expected Outcomes/Goals: 1. Pt will consume >75% estimated needs within 2-3 days MARTHA ALVARES MD May 28, 2024 22:22
[2024-05-28] MEDS: dilTIAZem 25 MG/5 ML VIAL IV SCH (23:55)
[2024-05-29] VITALS (9 sets, daily range): BP systolic 100–153; BP diastolic 52–62; PULSE 69–92; RESP 18–23; TEMP 97.8–101.3; O2SAT 93–95
[2024-05-29 06:18] LABS: Hemoglobin 9.1 g/dL (13.5-17.5); Mean Corpuscular Hemoglobin 30.4 pg (28.0-32.0); Mean Corpuscular Hgb Conc. 33.9 g/dL (32.0-36.0); Mean Corpuscular Volume 89.7 fL (80.0-100.0); Platelet Count (auto) 137 10^3/uL (140-450); Red Blood Cells 3.01 10^6/uL (4.5-5.90); Red Cell Distribution Width 15.6 % (11.8-14.3); White Blood Cell 3.5 10^3/uL (4.4-10.8)
[2024-05-29 06:20] LABS: Band Neutrophils % (manual) 0; Basophils % (manual) 0 (0.0-2.0); Blast Cells 0; Metamyelocytes % 0; Myelocytes % 0; Promyelocytes % 0; Reactive Lymphocytes 0
[2024-05-29 06:26] LABS: Anion Gap 8 (5-15); Carbon Dioxide 28 mmol/L (20-31); Chloride 100 mmol/L (98-107); Potassium 3.3 mmol/L (3.5-5.1); Sodium 136 mmol/L (136-145)
[2024-05-29 06:28] LABS: Calcium 9.3 mg/dL (8.7-10.4)
[2024-05-29 06:32] LABS: Blood Urea Nitrogen 18 mg/dL (9-23); Glucose 132 mg/dL (74-106)
[2024-05-29 06:52] LABS: Eosinophils % (manual) 1 (0-7); Lymphocytes % (manual) 33 (10.0-50.0); Monocytes % (manual) 15 (0-12); Platelet Estimate Adequate
--- NOTE | 2024-05-29 11:06 | DVHPN2 ---
Date of Progress Note Date of Progress Note Date of Progress Note: 05/29/24 Date of Admission Date of Admission Date of Admission: Date of Admission: May 22, 2024 at 14:57 Overnight Events Overnight events Overnight Events verito pain on po meds verito po's Past Medical History Past Medical History Past Medical History Pt denies CVA, [place], DM Admitted 05/22/24 for SBO, treated with NG tube,obs. Pt passing gas this AM, passing stool this AM. NG tube out this AM Mechanical fall yesterday with left groin pain. Pt denies DM, [place], CVA Past Surgical History Past Surgical History Past Surgical History RIGHT roosevelt hip for femoral neck fracture Family History Family History Family History: Alcoholism Cancer Cancer of colon Family history: Arthritis Family history: Asthma Family history: Blood disorder Family history: Cardiovascular disease Family history: Depression (situation) Family history: Diabetes mellitus Family history: Glaucoma Family history: Hypercholesterolemia (situation) Family history: Hypertension Family history: Thyroid disorder Malignant melanoma Malignant neoplasm of ovary Seizure disorder (situation) Stroke No Family History of: Family history: Alzheimer's disease Family history: Congenital anomaly Family history: Coronary thrombosis Family history: Diabetes in Family history: Osteoporosis Family history: Suicide (situation) Ischemic heart disease Malignant neoplasm of breast Malignant neoplasm of lung Prostate cancer Renal stone Allergies: Coded Allergies: Amiodarone (Verified Allergy, Unknown, 08/11/20) Diphenhydramine (Verified Allergy, Unknown, 08/11/20) Furosemide (Verified Allergy, Unknown, 08/11/20) Ibuprofen (Verified Allergy, Unknown, 08/11/20) Naproxen (Verified Allergy, Unknown, 08/11/20) Sulfa Drugs (Verified Allergy, Unknown, 08/11/20) Home Meds Active Scripts Prednisone (Prednisone) 20 Mg Tab, 60 MG PO DAILY for 3 Days, #9 MG Prov:REILLY REYES DO 12/13/21 Apixaban Base (ELIQUIS) 5 Mg Tab, 5 MG PO BID, #60 TAB Prov:JUANY ROBERTS MD 02/07/20 Metoprolol Tartrate (Lopressor) 25 Mg Tb, 12.5 MG PO BID, #30 TAB Check blood pressure and pulse prior to dose. Hold medication if systolic blood pressure is below 120 or pulse less than 70 Prov:JUANY ROBERTS MD 6/8/20 Reported Medications Allopurinol (Allopurinol) 300 Mg Tab, 300 MG PO Q12HR for 30 Days, MG 05/23/24 Duloxetine Hcl (Cymbalta) 60 Mg Cap, 1 CAP PO DAILY, #90 CAP 3 Refills 05/23/24 Omeprazole (Gnp Omeprazole) 20 Mg Tab, 1 TAB PO DAILY, #90 TAB 1 Refill 05/23/24 Tamsulosin Hcl (Tamsulosin Hcl) 0.4 Mg Cap, 0.4 MG PO QPM for 30 Days, MG 05/23/24 Diltiazem Hcl (Diltiazem Hcl) 60 Mg Tab, 60 MG PO BID for 30 Days, MG 05/23/24 Atorvastatin Calcium (Lipitor) 20 Mg Tab, 1 TAB PO DAILY, #90 TAB 1 Refill 05/23/24 Docusate Sodium (Colace) 100 Mg Cap, 1 CAP PO BID, #30 CAP 05/23/24 Pseudoephedrine HCl ([facility] 12 Hour Nasal [place]) 120 Mg Tab, 60 MG PO BID, TAB 05/23/24 Cetirizine Hcl (Kls Aller-Maria Teresa) 10 Mg Tab, 1 TAB PO DAILY, #30 TAB 3 Refills 05/23/24 Metoprolol Tartrate (Metoprolol Tartrate) 25 Mg Tab, 10 MG PO BID for 30 Days, MG 02/21/20 Lisinopril (Lisinopril) 10 Mg Tab, 10 MG PO BID for 30 Days, MG 02/21/20 Diazepam (Diazepam) 10 Mg Tab, 30 MG PO BID, TAB 02/21/20 Hydrochlorothiazide (Hydrochlorothiazide) 12.5 Mg Cap, 12.5 MG PO DAILY for 30 Days, MG 02/21/20 Nortriptyline Hcl (PAMELOR CAPSULE) 25 Mg Cp, 50 MG PO HS, CP 03/27/14 Allopurinol (Zyloprim) 100 Mg Tab 01/24/13 Omeprazole (Sm Omeprazole) 20 Mg Tab, 40 MG PO DAILY 01/24/13 Docusate Calcium (Sb Stool Softener) 240 Mg Cap, PO 01/24/13 Nitroglycerin (Nitroglycerin) 0.4 Mg Sl, DAILYP 01/24/13 Trazodone Hcl (Trazodone Hcl) 100 Mg Tab, PO HS 01/24/13 Atorvastatin Calcium (ATORVASTATIN CALCIUM) 40 Mg Tab, PO HS 01/24/13 Senna (Sennosides) 8.6 Mg Tab, PO DAILYP 01/24/13 Potassium Chloride (K-Tabs) 10 Meq Tab, PO DAILY 01/24/13 Multiple Vitamin (Mvi Tab) 1 Tab Tb 01/13/12 Auberry-3 Fatty Acids (Fish Oil) 1,000 Mg Cap 01/13/12 Epinephrine Hcl (Anaphylaxis) (Epipen) 0.3 Mg Inj 01/13/12 Citalopram Hydrobromide (Citalopram Hydrobromide) 20 Mg Tab 01/13/12 Cholecalciferol (D 400) 400 Unit Chw 01/13/12 Albuterol Sulfate (Albuterol Sulfate) 0.5 % Neb 01/13/12 Current Medications Current Medications Medications (Trade) Dose Ordered Sig/Jason Route PRN Reason Start Time Stop Time Status Last Admin Dextrose/Sodium Chloride 1,000 ml @ 75 mls/hr [id number] IV 05/28/24 14:15 05/28/24 18:36 Diltiazem HCl (Cardizem Injection) 10 mg Q6HR IV 05/29/24 00:00 05/29/24 05:41 Physical Examination General Examination: Last Vital sign Vital Signs Date Time Temp Pulse Resp B/P (MAP) Pulse Ox O2 Delivery O2 Flow Rate FiO2 05/29/24 09:45 82 18 110/54 05/29/24 09:00 98.7 95 98.7 05/28/24 20:00 Nasal Cannula* 3 32 General: General: No apparent distress, appears comfortable. Cooperative. Extremities: Left hip, no drainage from incision NVI L LE, no swelling L LE getting care for ulcers R LE, unchanged Skin: no draiange from surgical site, no change in right LE ulcer Neurological Examination: Neurological Examination: Mental Status: Cranial Nerves: Motor Examination: Reflexes: Sensory: Coordination: Gait: NVI Labs: Labs: Laboratory Tests Test 05/22/24 10:29 05/23/24 06:56 05/24/24 00:36 05/24/24 05:26 Range/Units White Blood Count 8.6 6.8 4.4-10.8 10^3/uL Red Blood Count 4.76 4.28 L 4.5-5.90 10^6/uL Hemoglobin 14.4 13.3 L 13.5-17.5 g/dL Hematocrit 43.1 38.5 #L 41.0-53.0 % Mean Corpuscular Volume 90.5 90.0 80.0-100.0 fL Mean Corpuscular Hemoglobin 30.2 31.0 28.0-32.0 pg Mean Corpuscular Hemoglobin Concent 33.4 34.5 32.0-36.0 g/dL Red Cell Distribution Width 16.6 H 16.5 H 11.8-14.3 % Platelet Count 208 186 140-450 10^3/uL Mean Platelet Volume 8.1 8.5 6.9-10.8 fL Neutrophils (%) (Auto) 81.2 H 72.9 37.0-80.0 % Lymphocytes (%) (Auto) 10.5 13.3 10.0-50.0 % Monocytes (%) (Auto) 7.9 13.3 H 0.0-12.0 % Eosinophils (%) (Auto) 0.2 0.2 0.0-7.0 % Basophils (%) (Auto) 0.2 0.3 0.0-2.0 % Neutrophils # (Auto) 7.0 4.9 1.6-8.6 10 ^3/uL Lymphocytes # (Auto) 0.9 0.9 0.4-5.4 10 ^3/uL Monocytes # (Auto) 0.7 0.9 0-1.3 10 ^3/uL Eosinophils # (Auto) 0 0 0-0.8 10 ^3/uL Basophils # (Auto) 0 0 0-0.2 10 ^3/uL Nucleated Red Blood Cells 0.1 0.1 % Sodium Level 135 L 135 L 134 L 136-145 mmol/L Potassium Level 4.3 4.4 3.9 3.5-5.1 mmol/L Chloride Level 101 101 98 98-107 mmol/L Carbon Dioxide Level 26 26 24 20-30 mmol/L Anion Gap 8 8 12 5-15 Blood Urea Nitrogen 16 17 18 9-23 mg/dL Creatinine 1.00 1.02 1.12 0.700-1.30 mg/dL Glomerular Filtration Rate Calc 80 78 70 >90 mL/min BUN/Creatinine Ratio 16.0 16.7 16.1 10.0-20.0 Serum Glucose 123 H 120 H 189 H 74-106 mg/dL Calcium Level 10.4 9.9 10.2 8.7-10.4 mg/dL Troponin I High Sensitivity 19 11 </=54 ng/L Triglycerides Level 93 84 < 150 mg/dL Cholesterol Level 144 < 200 mg/dL LDL Cholesterol 80 < 100 mg/dL HDL Cholesterol 48 40-59 mg/dL Thyroid Stimulating Hormone (TSH) 3.28 0.55-4.78 uIU/mL Total Bilirubin 0.7 0.7 0.2-1.0 mg/dL Aspartate Amino Transferase (AST) 18 17 13-40 U/L Alanine Aminotransferase (ALT) 14 14 7-40 U/L Alkaline Phosphatase 136 H 144 H 46-116 U/L Total Protein 6.5 7.5 5.7-8.2 g/dL Albumin 4.1 4.6 3.2-4.8 g/dL POC Glucose 164 H 70-106 mg/dl Phosphorus Level 3.4 2.4-5.1 mg/dL Magnesium Level 1.6 1.6-2.6 mg/dL Test 05/24/24 12:24 05/24/24 17:39 05/24/24 19:57 05/25/24 05:38 Range/Units POC Glucose 145 H 134 H 70-106 mg/dl Urine Color Yellow Yellow Urine Clarity Clear Clear Urine pH 5.5 5.0-9.0 Urine Specific Bowie 1.018 1.001-1.035 Urine Protein 1+ H Negative Urine Ketones Negative Negative Urine Blood Negative Negative /uL Urine Nitrite Negative Negative Urine Bilirubin Negative Negative Urine Urobilinogen Normal Negative mg/dL Urine Leukocyte Esterase Negative Negative /uL Urine RBC 11 0 - 3 /hpf Urine WBC 1 0 - 3 /hpf Urine Squamous Epithelial Cells Few <5 /hpf Urine Bacteria None seen None Seen /hpf Urine Hyaline Casts Few 0 - 2 /lpf Urine Mucus Few None Seen Urine Glucose Normal Normal mg/dL Sodium Level 132 L 136-145 mmol/L Potassium Level 3.7 3.5-5.1 mmol/L Chloride Level 96 L 98-107 mmol/L Carbon Dioxide Level 25 20-30 mmol/L Anion Gap 11 5-15 Blood Urea Nitrogen 28 #H 9-23 mg/dL Creatinine 1.24 0.700-1.30 mg/dL Glomerular Filtration Rate Calc 62 >90 mL/min BUN/Creatinine Ratio 22.6 H 10.0-20.0 Serum Glucose 133 H 74-106 mg/dL Calcium Level 10.1 8.7-10.4 mg/dL Phosphorus Level 2.9 2.4-5.1 mg/dL Magnesium Level 1.9 1.6-2.6 mg/dL Total Bilirubin 0.6 0.2-1.0 mg/dL Aspartate Amino Transferase (AST) 17 13-40 U/L Alanine Aminotransferase (ALT) 16 7-40 U/L Alkaline Phosphatase 133 H 46-116 U/L Total Protein 6.8 5.7-8.2 g/dL Albumin 4.1 3.2-4.8 g/dL Test 05/25/24 05:55 05/25/24 11:21 05/26/24 15:33 05/27/24 05:08 Range/Units POC Glucose 145 H 145 H 70-106 mg/dl White Blood Count 5.9 6.9 4.4-10.8 10^3/uL Red Blood Count 3.91 L 3.73 L 4.5-5.90 10^6/uL Hemoglobin 11.8 L 11.6 L 13.5-17.5 g/dL Hematocrit 35.1 L 33.6 L 41.0-53.0 % Mean Corpuscular Volume 89.7 90.0 80.0-100.0 fL Mean Corpuscular Hemoglobin 30.1 31.1 28.0-32.0 pg Mean Corpuscular Hemoglobin Concent 33.6 34.5 32.0-36.0 g/dL Red Cell Distribution Width 15.9 H 16.0 H 11.8-14.3 % Platelet Count 185 179 140-450 10^3/uL Mean Platelet Volume 8.4 9.0 6.9-10.8 fL Neutrophils (%) (Auto) 75.1 78.1 37.0-80.0 % Lymphocytes (%) (Auto) 7.8 L 6.2 L 10.0-50.0 % Monocytes (%) (Auto) 17.0 H 15.4 H 0.0-12.0 % Eosinophils (%) (Auto) 0.0 0.1 0.0-7.0 % Basophils (%) (Auto) 0.1 0.2 0.0-2.0 % Neutrophils # (Auto) 4.4 5.4 1.6-8.6 10 ^3/uL Lymphocytes # (Auto) 0.5 0.4 0.4-5.4 10 ^3/uL Monocytes # (Auto) 1.0 1.1 0-1.3 10 ^3/uL Eosinophils # (Auto) 0 0 0-0.8 10 ^3/uL Basophils # (Auto) 0 0 0-0.2 10 ^3/uL Nucleated Red Blood Cells 0.1 0.0 % Prothrombin Time 11.4 11.4 9.3-11.8 sec Prothrombin Time INR 1.08 1.08 0.9-1.15 Sodium Level 132 L 132 L 136-145 mmol/L Potassium Level 3.7 3.5 3.5-5.1 mmol/L Chloride Level 96 L 95 L 98-107 mmol/L Carbon Dioxide Level 30 29 20-30 mmol/L Anion Gap 6 8 5-15 Blood Urea Nitrogen 34 H 32 H 9-23 mg/dL Creatinine 1.12 1.07 0.700-1.30 mg/dL Glomerular Filtration Rate Calc 70 74 >90 mL/min BUN/Creatinine Ratio 30.4 H 29.9 H 10.0-20.0 Serum Glucose 130 H 108 H 74-106 mg/dL Hemoglobin A1c 5.2 <5.7 % A1C Calcium Level 9.4 9.5 8.7-10.4 mg/dL Total Bilirubin 0.8 1.0 0.2-1.0 mg/dL Aspartate Amino Transferase (AST) 19 20 13-40 U/L Alanine Aminotransferase (ALT) 16 16 7-40 U/L Alkaline Phosphatase 103 98 46-116 U/L Total Protein 6.1 6.0 5.7-8.2 g/dL Albumin 3.7 3.6 3.2-4.8 g/dL Activated Partial Thromboplast Time 38.7 H 24.5-34.5 SEC Test 05/28/24 14:52 05/29/24 05:02 Range/Units White Blood Count 4.7 # 3.5 #L 4.4-10.8 10^3/uL Red Blood Count 3.16 L 3.01 L 4.5-5.90 10^6/uL Hemoglobin 9.6 #L 9.1 L 13.5-17.5 g/dL Hematocrit 28.6 #L 27.0 L 41.0-53.0 % Mean Corpuscular Volume 90.5 89.7 80.0-100.0 fL Mean Corpuscular Hemoglobin 30.3 30.4 28.0-32.0 pg Mean Corpuscular Hemoglobin Concent 33.5 33.9 32.0-36.0 g/dL Red Cell Distribution Width 15.6 H 15.6 H 11.8-14.3 % Platelet Count 143 137 L 140-450 10^3/uL Mean Platelet Volume 8.6 9.0 6.9-10.8 fL Neutrophils (%) (Auto) 37.0-80.0 % Lymphocytes (%) (Auto) 10.0-50.0 % Monocytes (%) (Auto) 0.0-12.0 % Basophils (%) (Auto) 0.0-2.0 % Neutrophils # (Auto) 1.6-8.6 10 ^3/uL Lymphocytes # (Auto) 0.4-5.4 10 ^3/uL Monocytes # (Auto) 0-1.3 10 ^3/uL Differential Total Cells Counted 100.0 100.0 100 Neutrophils % (Manual) 69 51 37.0-80.0 Band Neutrophils % (Manual) 1 0 Lymphocytes % (Manual) 14 33 10.0-50.0 Monocytes % (Manual) 16 H 15 H 0-12 Eosinophils % (Manual) 0 1 0-7 Basophils % (Manual) 0 0 0.0-2.0 Metamyelocytes % (manual) 0 0 Myelocytes % (Manual) 0 0 Promyelocytes % (Manual) 0 0 Blast Cells % (Manual) 0 0 Reactive Lymphocytes 0 0 Platelet Estimate Adequate Adequate Sodium Level 136 136 136-145 mmol/L Potassium Level 3.8 3.3 L 3.5-5.1 mmol/L Chloride Level 102 100 98-107 mmol/L Carbon Dioxide Level 27 28 20-31 mmol/L Anion Gap 7 8 5-15 Blood Urea Nitrogen 25 H 18 9-23 mg/dL Creatinine 0.96 0.82 0.700-1.30 mg/dL Glomerular Filtration Rate Calc 84 93 >90 mL/min BUN/Creatinine Ratio 26.0 H 22.0 H 10.0-20.0 Serum Glucose 131 H 132 H 74-106 mg/dL Calcium Level 9.6 9.3 8.7-10.4 mg/dL Total Bilirubin 0.9 0.2-1.0 mg/dL Aspartate Amino Transferase (AST) 31 13-40 U/L Alanine Aminotransferase (ALT) 20 7-40 U/L Alkaline Phosphatase 81 46-116 U/L Total Protein 5.7 5.7-8.2 g/dL Albumin 3.4 3.2-4.8 g/dL Assessment/Plan Assessment/Plan Assessment and Plan:Ferny Ferrera is a 74 year old male POD 2 s/p ORIF left femur IT fracture 1) clear from dc from ortho view 2) WBAT left LE with full assist 3) follow up ortho 2 wks with XR left hip 2V Plan discussed with: Patient NIMO MACEDO MD May 29, 2024 11:06
--- NOTE | 2024-05-29 11:36 | DVHPN2 ---
Progress Note - Dictate Date Seen: May 29, 2024 Medical Necessity Reason Pt with a Central, PICC or Fol: No vital signs Vital Sign Date Time Temp Pulse Resp B/P (MAP) Pulse Ox O2 Delivery O2 Flow Rate FiO2 05/29/24 09:45 82 18 110/54 05/29/24 09:00 98.7 95 98.7 05/28/24 20:00 Nasal Cannula* 3 32 Total Intake and Output 05/28/24 05/28/24 05/29/24 15:00 23:00 07:00 Intake Total 100 ml 2600 ml 475 ml Output Total 2375 ml 900 ml Balance 100 ml 225 ml -425 ml medications Current Medications Medications Dose Ordered Sig/Jason Route Start Time Stop Time Status Last Admin Dose Admin Sodium Chloride 1,000 ml @ 75 mls/hr [id number] IV 05/22/24 15:00 05/28/24 04:20 75 MLS/HR Ondansetron HCl 4 mg Q4HP PRN IV 05/22/24 15:00 05/29/24 05:16 4 MG Acetaminophen 650 mg Q6HP PRN PO 05/22/24 15:00 Allopurinol 100 mg DAILY PO 05/23/24 10:00 05/29/24 09:42 100 MG Citalopram Hydrobromide 20 mg DAILY PO 05/23/24 10:00 05/29/24 09:43 20 MG Lisinopril 10 mg BID PO 05/22/24 22:00 05/28/24 22:06 10 MG Pantoprazole Sodium 40 mg DAILY PO 05/23/24 10:00 05/29/24 09:43 40 MG Hydralazine HCl 10 mg Q6HP PRN IV 05/23/24 05:00 05/24/24 01:34 10 MG Acetaminophen/ Hydrocodone Bitart 1 tab Q4HPRN PRN PO 05/23/24 12:00 05/28/24 09:37 1 TAB Prochlorperazine Edisylate 10 mg Q6HP PRN IV 05/23/24 12:00 05/29/24 09:41 10 MG Atorvastatin Calcium 20 mg DAILY PO 05/24/24 10:00 05/29/24 09:43 20 MG Metoprolol Tartrate 12.5 mg BID PO 05/23/24 22:00 05/28/24 22:06 12.5 MG Nortriptyline HCl 50 mg HS PO 05/23/24 22:00 05/28/24 22:06 50 MG Tamsulosin HCl 0.4 mg QPM PO 05/23/24 18:00 05/27/24 18:40 0.4 MG Morphine Sulfate 4 mg Q4HPRN PRN IV 05/23/24 13:45 05/29/24 09:45 4 MG Piperacillin Sod/ Tazobactam Sod 100 ml @ 25 mls/hr Q8HR IV 05/26/24 22:00 05/29/24 05:04 25 MLS/HR Enteral Nutritional Formula 27.5 gm BIDWM PO 05/27/24 18:00 05/28/24 08:00 27.5 GM Enoxaparin Sodium 80 mg Q12HR SC 05/27/24 22:00 05/29/24 09:44 80 MG Lactated Ringer's 1,000 ml @ 100 mls/hr Q10H IV 05/27/24 17:15 Dextrose/Sodium Chloride 1,000 ml @ 75 mls/hr [id number] IV 05/28/24 14:15 05/28/24 18:36 75 MLS/HR Diltiazem HCl 10 mg Q6HR IV 05/29/24 00:00 05/29/24 05:41 10 MG laboratory and microbiology Laboratory Tests 05/29/24 05:02 Test 05/29/24 05:02 Range/Units Serum Glucose 132 H 74-106 mg/dL Assessment/Plan Had mechanical fall and found to have hip fracture. S/p ORIF Patient is a 74-year-old gentleman who presented on May 22, 2024 for epigastric pain. It seems that he ate sandwich in this was followed by repeated abdominal pain and vomiting. He has been admitted with small-bowel obstruction. He also was found to have gallstones and gastric outlet obstruction. He has been seen by surgery and GI. He has been having NG tube. Patient does have history of paroxysmal AFib and is on Eliquis as outpatient. On 05/24 2024, the patient was found to have tachyarrhythmia and cardiology was involved for its evaluation and management. Telemetry revealed tachyarrhythmia in the rate of 150s. Tele was in favor of SVT. Patient was attached to the monitor and 6 mg of adenosine was given which resulted in breaking of the tachyarrhythmia inpatient been back to sinus rhythm. As per patient, he usually follows with Cardiology in [facility]. As per patient, he did have angiogram (cardiac catheterization some years ago and was told that it was normal findings). Lying flat in bed and not in acute distress. No JVD. Mucosa is pink and wet. No carotid bruit. No goiter. Lungs are clear to auscultation. At the time of evaluation the patient started to be in tachyarrhythmia and in palpitation. Later, heart rate decreased. No thrill/gallop. Abdomen is soft. Extremities do not reveal edema Past medical history includes atrial fibrillation (on Eliquis as outpatient), DJD, heart failure (diastolic), COPD, hypertension, hyperlipidemia, reported diabetes mellitus, obesity, old history of tonsillectomy and gastric bypass surgery. He is known to have kidney stones. Echocardiogram of January 2020 revealed ejection fraction of 60% and biatrial enlargement Creatinine: 1.0 - 1.02 - 1.12 - 1.24 - 1.12 - 1.07 - 0.96 - 0.82 Potassium: 4.3 - 4.4 - 4.9 - 3.7 - 3.7 - 3.5 - 3.8 - 0.33 Troponin (high sensitive): 19 - 11 TSH: 3.28 CT of the abdomen and pelvis revealed: IMPRESSION: 1. Cholelithiasis with the gallbladder distended. 2. Postop changes to the stomach with a fluid-filled distended stomach and dilated fluid-filled small bowel findings suggest small bowel obstruction. 3. Multiple bilateral nonobstructing renal calculi. 4. Prosthesis in the right hip. Chest x-ray revealed: Frontal chest radiograph demonstrates no acute osseous or superficial soft tissue abnormalities. Enteric tube visualized overlying the plane of the stomach. The trachea is midline. The cardiac silhouette and mediastinum are within normal limits. No pneumothorax, pleural effusions, or consolidations. Partially visualized gaseous distended loops of bowel. HIDA scan reported: IMPRESSION: 1. Findings may reflect chronic cholecystitis, cannot exclude acute cholecystitis due to lack of 30-60 minute images. KUB revealed: IMPRESSION: Findings concerning for small bowel obstruction versus ileus. Repeat KUB revealed: FINDINGS/IMPRESSION: Dilated loops of small bowel with gas and stool visualized in the colon. Findings appear improved compared to prior exam. Repeat KUG revealed: IMPRESSION: 1. There are air-filled dilated small bowel loops. Air and stool is seen within the colon. The findings appear mildly improved comparison to the prior study. The findings fairly stable and May relate to an ileus.. Clinical correlation and continued follow-up is recommended Left Hip Xry: FINDINGS/IMPRESSION: There is a displaced and impacted left intertrochanteric fracture. Patient is status post right hip arthroplasty. EKG revealed SVT Tele revealed SVT which later transitioned into sinus rhythm Echocardiogram revealed: Technically limited study secondary to poor acoustic windows. Left ventricle: Mild concentric left ventricular hypertrophy was seen. LVEF was 55-60%. Right ventricle was normal size with normal systolic function. Both atria were mildly dilated. Aortic valve was not well visualized. Aortic sclerosis with no stenosis was observed. [id number] aortic insufficiency was observed. Mild mitral/tricuspid regurgitation was seen. Tricuspid valve was not well visualized. Right ventricular systolic pressure was assessed around 25 mm Hg. There was no pericardial effusion. Ascending aorta was 4.5 cm. Patient is a 74-year-old gentleman who presented with abdominal pain and is being managed for small bowel obstruction. He does have history of paroxysmal AFib. Has not been taking his medications regularly and this was followed with tachyarrhythmia. Tachyarrhythmia was in favor of SVT. SVT responded to adenosine Small-bowel obstruction Obesity History of gastric bypass Paroxysmal AFib SVT Status post adenosine management Diabetes mellitus Obesity, morbid Cardiac suggestion for management: For now, manage on telemetry Follow-up electrolytes and kidney function tests and correct abnormalities Keep potassium above 4 and magnesium above 2 Continue Cardizem Continue metoprolol tartrate Evaluation and management of gallstones/gastric outlet obstruction as per primary team/GI/surgery Long-term continuation of anticoagulation is suggested (for now patient on Lovenox). Further evaluation and management depends on the above and clinical course A total of 55 minutes was spent reviewing the patient record, examining the patient, making a diagnostic and therapeutic plan, discussing this plan with medical personnel, following up on diagnostic studies and following the patient for clinical stability excluding any and all procedures. At least 50% of this time was spent in direct, [id number] contact. Thank you for allowing me to participate in this patient's care. Further recommendations will depend on patient's clinical course. Please do not hesitate to contact me if you have any questions or concerns. This medical document was created using electronic medical record system with [employer] computerized dictation system. Although this document has been carefully reviewed, there may still be some phonetic and typographical errors. These areas are purely typographical due to the imperfection of the software programs, and do not reflect any compromise in the patient's medical care. Dietary Evaluation Review Comments: 1. advance diet as tolerated per MD 2. Consider EN/TPN if Pt remains NPO for 48 hours Expected Outcomes/Goals: 1. Pt will consume >75% estimated needs within 2-3 days Plan discussed with: Other (nurse) BROOKS PRITCHARD MD May 29, 2024 11:36
[2024-05-29] MEDS: POTASSIUM CHL 20MEQ/100ML 100 ML IV ONE (13:00)
--- NOTE | 2024-05-29 13:46 | DVH ---
EXAM: XY KUB ABDOMEN SINGLE VIEW HISTORY: ilues COMPARISON: XY KUB ABDOMEN SINGLE VIEW on DOS: 05/28/24, XY KUB ABDOMEN SINGLE VIEW on DOS: 05/25/24, X Y KUB ABDOMEN SINGLE VIEW on DOS: 05/24/24 TECHNIQUE: Single AP of the abdomen and pelvis was obtained. Findings: Frontal view of the abdomen demonstrates a nonobstructive bowel gas pattern. No visualized renal calc adelaide. There is no evidence of an acute fracture, dislocation, blastic, or lytic lesions. The visualized portions of the lung bases are unremarkable. Right total hip arthroplasty and left hip intramedullary speedy and dynamic nail fixation hardware. No superficial soft tissue abnormalities. Impression: 1. Nonobstructive bowel gas pattern. 2. No visualized renal calculi.
--- NOTE | 2024-05-29 17:25 | DVHPN2 ---
Progress Note Date Seen: May 29, 2024 Medical Necessity Reason Pt with a Central, PICC or Fol: No Subjective Review of Systems: HEENT:Normal, CVS:Normal, RESPIRATORY:Normal, GI:Normal, NEURO:Normal Objective vital signs Vital Sign Date Time Temp Pulse Resp B/P (MAP) Pulse Ox O2 Delivery O2 Flow Rate FiO2 05/29/24 17:00 98.1 83 18 126/62 (83) 93 98.1 05/29/24 08:00 Nasal Cannula* 2 28 Total Intake and Output 05/28/24 05/28/24 05/29/24 15:00 23:00 07:00 Intake Total 100 ml 2600 ml 475 ml Output Total 2375 ml 900 ml Balance 100 ml 225 ml -425 ml medications Current Medications Medications Dose Ordered Sig/Jason Route Start Time Stop Time Status Last Admin Dose Admin Sodium Chloride 1,000 ml @ 75 mls/hr [id number] IV 05/22/24 15:00 05/28/24 04:20 75 MLS/HR Ondansetron HCl 4 mg Q4HP PRN IV 05/22/24 15:00 05/29/24 05:16 4 MG Acetaminophen 650 mg Q6HP PRN PO 05/22/24 15:00 Allopurinol 100 mg DAILY PO 05/23/24 10:00 05/29/24 09:42 100 MG Citalopram Hydrobromide 20 mg DAILY PO 05/23/24 10:00 05/29/24 09:43 20 MG Lisinopril 10 mg BID PO 05/22/24 22:00 05/28/24 22:06 10 MG Pantoprazole Sodium 40 mg DAILY PO 05/23/24 10:00 05/29/24 09:43 40 MG Hydralazine HCl 10 mg Q6HP PRN IV 05/23/24 05:00 05/24/24 01:34 10 MG Acetaminophen/ Hydrocodone Bitart 1 tab Q4HPRN PRN PO 05/23/24 12:00 05/28/24 09:37 1 TAB Prochlorperazine Edisylate 10 mg Q6HP PRN IV 05/23/24 12:00 05/29/24 09:41 10 MG Atorvastatin Calcium 20 mg DAILY PO 05/24/24 10:00 05/29/24 09:43 20 MG Metoprolol Tartrate 12.5 mg BID PO 05/23/24 22:00 05/28/24 22:06 12.5 MG Nortriptyline HCl 50 mg HS PO 05/23/24 22:00 05/28/24 22:06 50 MG Tamsulosin HCl 0.4 mg QPM PO 05/23/24 18:00 05/27/24 18:40 0.4 MG Morphine Sulfate 4 mg Q4HPRN PRN IV 05/23/24 13:45 05/29/24 09:45 4 MG Piperacillin Sod/ Tazobactam Sod 100 ml @ 25 mls/hr Q8HR IV 05/26/24 22:00 05/29/24 05:04 25 MLS/HR Enteral Nutritional Formula 27.5 gm BIDWM PO 05/27/24 18:00 05/28/24 08:00 27.5 GM Enoxaparin Sodium 80 mg Q12HR SC 05/27/24 22:00 05/29/24 09:44 80 MG Lactated Ringer's 1,000 ml @ 100 mls/hr Q10H IV 05/27/24 17:15 Dextrose/Sodium Chloride 1,000 ml @ 75 mls/hr [id number] IV 05/28/24 14:15 05/28/24 18:36 75 MLS/HR Diltiazem HCl 10 mg Q6HR IV 05/29/24 00:00 05/29/24 13:09 10 MG Examination: GENERAL:Normal, LUNGS:Normal, CVS:Normal, ABDOMEN:Normal, SKIN:Normal, NEURO:Normal laboratory and microbiology Laboratory Tests 05/29/24 05:02 Test 05/29/24 05:02 Range/Units Serum Glucose 132 H 74-106 mg/dL Labs and/or images reviewed: Labs reviewed by me, Image(s) reviewed by me Problem List/Assessment/Plan Problem List/Assessment/Plan 1. Small bowel obstruction Monitor, surgical consult, GI consult, NPO 2. HLD Monitor 3. Persistent atrial fibrillation Monitor, full dose Lovenox 4. Obesity Monitor 5. Hx gastric bypass Monitor 6. Benign essential HTN Monitor, antihypertensives 7. Gallstones Monitor, surgical consult, GI consult, NPO, HIDA scan Assessment/Plan Subjective Patient is awake and alert. Objective Patient had a fall in the hospital where he landed on his gluteal and left hip area. Patient is S/P ORIF by Dr. Eden. Patient has been working with physical therapy and has been cleared for discharge by orthopedic surgeon Patient was originally admitted for abdominal pain related to small bowel obstruction and possible chronic versus acute cholecystitis. Patient had HIDA scan done however HIDA scan was inconclusive since machine broke during time of procedure. We will repeat HIDA scan on Friday to determine if there is acute cholecystitis. Today patient continues to report abdominal pain and vomiting. Case was discussed with general surgeon Dr. Cahwla yesterday, we agreed that patient will need higher level of care if surgery is indicated due to his prior history of bariatric surgery. KUB today is negative for ileus. Plan Repeat HIDA scan on Friday to rule out acute cholecystitis due to persistent nausea and vomiting, refused NG tube, keep patient NPO, placed on D5 NS at 75. Orthopedic consult appreciated. Monitor intake and output. Monitor bowel movements. Continue antibiotics for possible cholecystitis. Plan discussed with: Patient My Orders My Orders Orders - KONRAD ROCKWELL Procedure Category Date Status Time Kub Abdomen Single XY 05/29/24 Resulted View 12:25 Dietary Evaluation Review Comments: 1. advance diet as tolerated per MD 2. Consider EN/TPN if Pt remains NPO for 48 hours Expected Outcomes/Goals: 1. Pt will consume >75% estimated needs within 2-3 days Date of Service: May 29, 2024 Billing Provider: RICA HELLER MD Common Visit Codes: [id number] INP/OBS CARE (MOD) KONRAD ROCKWELL May 29, 2024 17:25
--- NOTE | 2024-05-29 18:35 | DVH ---
CLINICAL INFORMATION: 74 years old, Male; r.o natasha. TECHNIQUE: Grayscale sonographic imaging of the right upper quadrant of the abdomen was performed, a ssisted by color Doppler techniques. COMPARISON: CT of the abdomen and pelvis dated 05/22/2024. FINDINGS: Examination is limited. The gallbladder appears distended. The gallbladder wall measures 2 mm in thickness, within normal limits. Possible sludge in the gallbladder. Negative reported sonogr aphic valladares's sign. The common bile duct measures 6 mm in diameter, within normal limits. The liver measures at the upper limits of normal in size, at 16.4 cm in craniocaudal dimension. Heter ogeneous echotexture of the liver. The pancreas is obscured by bowel gas. The right kidney measures 9.6 cm. There is no hydronephrosis. Limited evaluation of the right kidn ey. Echogenic focus, possible renal calculus at the midpole measuring 1.4 cm. The patient does have r enal calculi on recent CT exam. IMPRESSION: 1. Limited examination as described above. Possible gallbladder sludge and distended gallbladder. No sonographic evidence of acute cholecystitis. 2. Additional nonacute findings as described above.
[2024-05-29] MEDS: ACETAMINOPHEN 325 MG TAB PO PRN (21:55)
[2024-05-30] VITALS (7 sets, daily range): BP systolic 105–140; BP diastolic 57–78; PULSE 64–107; RESP 18–22; TEMP 97.7–99.8; O2SAT 94–97
--- NOTE | 2024-05-30 08:01 | DVHPN2 ---
Progress Note - Dictate Date Seen: May 30, 2024 Medical Necessity Reason Pt with a Central, PICC or Fol: No vital signs Vital Sign Date Time Temp Pulse Resp B/P (MAP) Pulse Ox O2 Delivery O2 Flow Rate FiO2 05/30/24 01:00 99.8 90 19 124/57 (79) 94 99.8 05/29/24 20:00 Nasal Cannula* 2 28 Total Intake and Output 05/29/24 05/29/24 05/30/24 15:00 23:00 07:00 Intake Total 100 ml 325 ml 350 ml Output Total 850 ml 600 ml Balance 100 ml -525 ml -250 ml medications Current Medications Medications Dose Ordered Sig/Jason Route Start Time Stop Time Status Last Admin Dose Admin Sodium Chloride 1,000 ml @ 75 mls/hr [id number] IV 05/22/24 15:00 05/28/24 04:20 75 MLS/HR Ondansetron HCl 4 mg Q4HP PRN IV 05/22/24 15:00 05/29/24 05:16 4 MG Acetaminophen 650 mg Q6HP PRN PO 05/22/24 15:00 05/29/24 21:55 650 MG Allopurinol 100 mg DAILY PO 05/23/24 10:00 05/29/24 09:42 100 MG Citalopram Hydrobromide 20 mg DAILY PO 05/23/24 10:00 05/29/24 09:43 20 MG Lisinopril 10 mg BID PO 05/22/24 22:00 05/29/24 21:55 10 MG Pantoprazole Sodium 40 mg DAILY PO 05/23/24 10:00 05/29/24 09:43 40 MG Hydralazine HCl 10 mg Q6HP PRN IV 05/23/24 05:00 05/24/24 01:34 10 MG Acetaminophen/ Hydrocodone Bitart 1 tab Q4HPRN PRN PO 05/23/24 12:00 05/28/24 09:37 1 TAB Prochlorperazine Edisylate 10 mg Q6HP PRN IV 05/23/24 12:00 05/30/24 05:11 10 MG Atorvastatin Calcium 20 mg DAILY PO 05/24/24 10:00 05/29/24 09:43 20 MG Metoprolol Tartrate 12.5 mg BID PO 05/23/24 22:00 05/29/24 21:54 12.5 MG Nortriptyline HCl 50 mg HS PO 05/23/24 22:00 05/29/24 21:53 50 MG Tamsulosin HCl 0.4 mg QPM PO 05/23/24 18:00 05/29/24 17:50 0.4 MG Morphine Sulfate 4 mg Q4HPRN PRN IV 05/23/24 13:45 05/29/24 23:45 4 MG Piperacillin Sod/ Tazobactam Sod 100 ml @ 25 mls/hr Q8HR IV 05/26/24 22:00 05/30/24 05:24 25 MLS/HR Enteral Nutritional Formula 27.5 gm BIDWM PO 05/27/24 18:00 05/28/24 08:00 27.5 GM Enoxaparin Sodium 80 mg Q12HR SC 05/27/24 22:00 05/29/24 21:54 80 MG Lactated Ringer's 1,000 ml @ 100 mls/hr Q10H IV 05/27/24 17:15 Dextrose/Sodium Chloride 1,000 ml @ 75 mls/hr [id number] IV 05/28/24 14:15 05/29/24 16:55 75 MLS/HR Diltiazem HCl 10 mg Q6HR IV 05/29/24 00:00 05/30/24 05:25 10 MG laboratory and microbiology Laboratory Tests 05/29/24 05:02 Test 05/29/24 05:02 Range/Units Serum Glucose 132 H 74-106 mg/dL Assessment/Plan Had mechanical fall and found to have hip fracture. S/p ORIF Patient is a 74-year-old gentleman who presented on May 22, 2024 for epigastric pain. It seems that he ate sandwich in this was followed by repeated abdominal pain and vomiting. He has been admitted with small-bowel obstruction. He also was found to have gallstones and gastric outlet obstruction. He has been seen by surgery and GI. He has been having NG tube. Patient does have history of paroxysmal AFib and is on Eliquis as outpatient. On 05/24 2024, the patient was found to have tachyarrhythmia and cardiology was involved for its evaluation and management. Telemetry revealed tachyarrhythmia in the rate of 150s. Tele was in favor of SVT. Patient was attached to the monitor and 6 mg of adenosine was given which resulted in breaking of the tachyarrhythmia inpatient been back to sinus rhythm. As per patient, he usually follows with Cardiology in [facility]. As per patient, he did have angiogram (cardiac catheterization some years ago and was told that it was normal findings). Lying flat in bed and not in acute distress. No JVD. Mucosa is pink and wet. No carotid bruit. No goiter. Lungs are clear to auscultation. At the time of evaluation the patient started to be in tachyarrhythmia and in palpitation. Later, heart rate decreased. No thrill/gallop. Abdomen is soft. Extremities do not reveal edema Past medical history includes atrial fibrillation (on Eliquis as outpatient), DJD, heart failure (diastolic), COPD, hypertension, hyperlipidemia, reported diabetes mellitus, obesity, old history of tonsillectomy and gastric bypass surgery. He is known to have kidney stones. Echocardiogram of January 2020 revealed ejection fraction of 60% and biatrial enlargement Creatinine: 1.0 - 1.02 - 1.12 - 1.24 - 1.12 - 1.07 - 0.96 - 0.82 Potassium: 4.3 - 4.4 - 4.9 - 3.7 - 3.7 - 3.5 - 3.8 - 3.3 Troponin (high sensitive): 19 - 11 TSH: 3.28 CT of the abdomen and pelvis revealed: IMPRESSION: 1. Cholelithiasis with the gallbladder distended. 2. Postop changes to the stomach with a fluid-filled distended stomach and dilated fluid-filled small bowel findings suggest small bowel obstruction. 3. Multiple bilateral nonobstructing renal calculi. 4. Prosthesis in the right hip. Chest x-ray revealed: Frontal chest radiograph demonstrates no acute osseous or superficial soft tissue abnormalities. Enteric tube visualized overlying the plane of the stomach. The trachea is midline. The cardiac silhouette and mediastinum are within normal limits. No pneumothorax, pleural effusions, or consolidations. Partially visualized gaseous distended loops of bowel. HIDA scan reported: IMPRESSION: 1. Findings may reflect chronic cholecystitis, cannot exclude acute cholecystitis due to lack of 30-60 minute images. KUB revealed: IMPRESSION: Findings concerning for small bowel obstruction versus ileus. Repeat KUB revealed: FINDINGS/IMPRESSION: Dilated loops of small bowel with gas and stool visualized in the colon. Findings appear improved compared to prior exam. Repeat KUB revealed: IMPRESSION: 1. There are air-filled dilated small bowel loops. Air and stool is seen within the colon. The findings appear mildly improved comparison to the prior study. The findings fairly stable and May relate to an ileus.. Clinical correlation and continued follow-up is recommended Repeat KUB revealed: Impression: 1. Nonobstructive bowel gas pattern. Gallbladder ultrasound reported: FINDINGS: Examination is limited. The gallbladder appears distended. The gallbladder wall measures 2 mm in thickness, within normal limits. Possible sludge in the gallbladder. Negative reported sonographic valladares's sign. The common bile duct measures 6 mm in diameter, within normal limits. The liver measures at the upper limits of normal in size, at 16.4 cm in craniocaudal dimension. Heterogeneous echotexture of the liver. The pancreas is obscured by bowel gas. The right kidney measures 9.6 cm. There is no hydronephrosis. Limited evaluation of the right kidney. Echogenic focus, possible renal calculus at the midpole measuring 1.4 cm. The patient does have renal calculi on recent CT exam. IMPRESSION: 1. Limited examination as described above. Possible gallbladder sludge and distended gallbladder. No sonographic evidence of acute cholecystitis. 2. Additional nonacute findings as described above. Left Hip Xry: FINDINGS/IMPRESSION: There is a displaced and impacted left intertrochanteric fracture. Patient is status post right hip arthroplasty. EKG revealed SVT Tele revealed SVT which later transitioned into sinus rhythm Echocardiogram revealed: Technically limited study secondary to poor acoustic windows. Left ventricle: Mild concentric left ventricular hypertrophy was seen. LVEF was 55-60%. Right ventricle was normal size with normal systolic function. Both atria were mildly dilated. Aortic valve was not well visualized. Aortic sclerosis with no stenosis was observed. [id number] aortic insufficiency was observed. Mild mitral/tricuspid regurgitation was seen. Tricuspid valve was not well visualized. Right ventricular systolic pressure was assessed around 25 mm Hg. There was no pericardial effusion. Ascending aorta was 4.5 cm. Patient is a 74-year-old gentleman who presented with abdominal pain and is being managed for small bowel obstruction. He does have history of paroxysmal AFib. Has not been taking his medications regularly and this was followed with tachyarrhythmia. Tachyarrhythmia was in favor of SVT. SVT responded to adenosine Small-bowel obstruction Obesity History of gastric bypass Paroxysmal AFib SVT Status post adenosine management Diabetes mellitus Obesity, morbid Gallstone Renal stone Cardiac suggestion for management: For now, manage on telemetry Follow-up electrolytes and kidney function tests and correct abnormalities Keep potassium above 4 and magnesium above 2 Continue Cardizem Continue metoprolol tartrate Evaluation and management of gallstones/gastric outlet obstruction as per primary team/GI/surgery Long-term continuation of anticoagulation is suggested (for now patient on Lovenox). Further evaluation and management depends on the above and clinical course A total of 55 minutes was spent reviewing the patient record, examining the patient, making a diagnostic and therapeutic plan, discussing this plan with medical personnel, following up on diagnostic studies and following the patient for clinical stability excluding any and all procedures. At least 50% of this time was spent in direct, [id number] contact. Thank you for allowing me to participate in this patient's care. Further recommendations will depend on patient's clinical course. Please do not hesitate to contact me if you have any questions or concerns. This medical document was created using electronic medical record system with [employer] computerized dictation system. Although this document has been carefully reviewed, there may still be some phonetic and typographical errors. These areas are purely typographical due to the imperfection of the software programs, and do not reflect any compromise in the patient's medical care. Dietary Evaluation Review Comments: 1. advance diet as tolerated per MD 2. Consider EN/TPN if Pt remains NPO for 48 hours Expected Outcomes/Goals: 1. Pt will consume >75% estimated needs within 2-3 days Plan discussed with: Other (nurse) BROOKS PRITCHARD MD May 30, 2024 08:00
--- NOTE | 2024-05-30 09:18 | DVHPN2 ---
Progress Note Date Seen: May 30, 2024 Medical Necessity Reason Pt with a Central, PICC or Fol: No Objective vital signs Vital Sign Date Time Temp Pulse Resp B/P (MAP) Pulse Ox O2 Delivery O2 Flow Rate FiO2 05/30/24 08:00 86 18 95 Nasal Cannula* 2 05/30/24 01:00 99.8 124/57 (79) 99.8 Total Intake and Output 05/29/24 05/29/24 05/30/24 15:00 23:00 07:00 Intake Total 100 ml 325 ml 350 ml Output Total 850 ml 600 ml Balance 100 ml -525 ml -250 ml medications Current Medications Medications Dose Ordered Sig/Jason Route Start Time Stop Time Status Last Admin Dose Admin Sodium Chloride 1,000 ml @ 75 mls/hr [id number] IV 05/22/24 15:00 05/28/24 04:20 75 MLS/HR Ondansetron HCl 4 mg Q4HP PRN IV 05/22/24 15:00 05/29/24 05:16 4 MG Acetaminophen 650 mg Q6HP PRN PO 05/22/24 15:00 05/29/24 21:55 650 MG Allopurinol 100 mg DAILY PO 05/23/24 10:00 05/30/24 08:36 100 MG Citalopram Hydrobromide 20 mg DAILY PO 05/23/24 10:00 05/30/24 08:36 20 MG Lisinopril 10 mg BID PO 05/22/24 22:00 05/29/24 21:55 10 MG Pantoprazole Sodium 40 mg DAILY PO 05/23/24 10:00 05/30/24 08:36 40 MG Hydralazine HCl 10 mg Q6HP PRN IV 05/23/24 05:00 05/24/24 01:34 10 MG Acetaminophen/ Hydrocodone Bitart 1 tab Q4HPRN PRN PO 05/23/24 12:00 05/30/24 08:37 1 TAB Prochlorperazine Edisylate 10 mg Q6HP PRN IV 05/23/24 12:00 05/30/24 05:11 10 MG Atorvastatin Calcium 20 mg DAILY PO 05/24/24 10:00 05/30/24 08:36 20 MG Metoprolol Tartrate 12.5 mg BID PO 05/23/24 22:00 05/29/24 21:54 12.5 MG Nortriptyline HCl 50 mg HS PO 05/23/24 22:00 05/29/24 21:53 50 MG Tamsulosin HCl 0.4 mg QPM PO 05/23/24 18:00 05/29/24 17:50 0.4 MG Morphine Sulfate 4 mg Q4HPRN PRN IV 05/23/24 13:45 05/29/24 23:45 4 MG Piperacillin Sod/ Tazobactam Sod 100 ml @ 25 mls/hr Q8HR IV 05/26/24 22:00 05/30/24 05:24 25 MLS/HR Enteral Nutritional Formula 27.5 gm BIDWM PO 05/27/24 18:00 05/28/24 08:00 27.5 GM Enoxaparin Sodium 80 mg Q12HR SC 05/27/24 22:00 05/30/24 08:36 80 MG Lactated Ringer's 1,000 ml @ 100 mls/hr Q10H IV 05/27/24 17:15 Dextrose/Sodium Chloride 1,000 ml @ 75 mls/hr [id number] IV 05/28/24 14:15 05/29/24 16:55 75 MLS/HR Diltiazem HCl 10 mg Q6HR IV 05/29/24 00:00 05/30/24 05:25 10 MG laboratory and microbiology Laboratory Tests 05/29/24 05:02 Test 05/29/24 05:02 Range/Units Serum Glucose 132 H 74-106 mg/dL Problem List/Assessment/Plan Problem List/Assessment/Plan AFEBRILE VSS ABD SOFT NON TENDER N/V LESS BM + FLATUS + SBO RESOLVING ALLOW SIPS OF WATER CLEAR LIQUIDS SONAM Plan discussed with: Patient Dietary Evaluation Review Comments: 1. advance diet as tolerated per MD 2. Consider EN/TPN if Pt remains NPO for 48 hours Expected Outcomes/Goals: 1. Pt will consume >75% estimated needs within 2-3 days MARTHA ALVARES MD May 30, 2024 09:18
[2024-05-30 11:08] LABS: Basophils # (auto) 0 10 ^3/uL (0-0.2); Basophils % (auto) 0.1 % (0.0-2.0); Eosinophils # (auto) 0.1 10 ^3/uL (0-0.8); Eosinophils % (auto) 1.2 % (0.0-7.0); Hematocrit 28.2 % (41.0-53.0); Hemoglobin 9.3 g/dL (13.5-17.5); Lymphocytes # (auto) 0.5 10 ^3/uL (0.4-5.4); Lymphocytes % (auto) 13.3 % (10.0-50.0); Mean Corpuscular Hemoglobin 30.1 pg (28.0-32.0); Mean Corpuscular Hgb Conc. 33.1 g/dL (32.0-36.0); Monocytes # (auto) 0.9 10 ^3/uL (0-1.3); Neutrophils # (auto) 2.6 10 ^3/uL (1.6-8.6); Nucleated Red Blood Cells % 0.2 %; Platelet Count (auto) 145 10^3/uL (140-450); Red Cell Distribution Width 15.8 % (11.8-14.3); White Blood Cell 4.1 10^3/uL (4.4-10.8)
[2024-05-30 11:09] LABS: Chloride 96 mmol/L (98-107); Potassium 3.2 mmol/L (3.5-5.1); Sodium 135 mmol/L (136-145)
[2024-05-30 11:10] LABS: Anion Gap 8 (5-15); Calcium 9.3 mg/dL (8.7-10.4); Carbon Dioxide 31 mmol/L (20-31)
[2024-05-30 11:12] LABS: Monocytes % (auto) 21.4 % (0.0-12.0)
[2024-05-30 11:15] LABS: BUN/Creatinine Ratio 17.7 (10.0-20.0); Blood Urea Nitrogen 14 mg/dL (9-23); Glucose 106 mg/dL (74-106)
--- NOTE | 2024-05-30 19:27 | DVHPN2 ---
Progress Note Date Seen: May 30, 2024 Medical Necessity Reason Pt with a Central, PICC or Fol: No Subjective Review of Systems: CVS:Normal, RESPIRATORY:Normal, GI:Normal, :Normal, NEURO:Normal Objective vital signs Vital Sign Date Time Temp Pulse Resp B/P (MAP) Pulse Ox O2 Delivery O2 Flow Rate FiO2 05/30/24 17:03 98.9 105 22 140/69 (92) 95 98.9 05/30/24 08:00 Nasal Cannula* 2 28 Total Intake and Output 05/29/24 05/29/24 05/30/24 15:00 23:00 07:00 Intake Total 100 ml 325 ml 350 ml Output Total 850 ml 600 ml Balance 100 ml -525 ml -250 ml medications Current Medications Medications Dose Ordered Sig/Jason Route Start Time Stop Time Status Last Admin Dose Admin Sodium Chloride 1,000 ml @ 75 mls/hr [id number] IV 05/22/24 15:00 05/30/24 09:40 75 MLS/HR Ondansetron HCl 4 mg Q4HP PRN IV 05/22/24 15:00 05/29/24 05:16 4 MG Acetaminophen 650 mg Q6HP PRN PO 05/22/24 15:00 05/29/24 21:55 650 MG Allopurinol 100 mg DAILY PO 05/23/24 10:00 05/30/24 08:36 100 MG Citalopram Hydrobromide 20 mg DAILY PO 05/23/24 10:00 05/30/24 08:36 20 MG Lisinopril 10 mg BID PO 05/22/24 22:00 05/29/24 21:55 10 MG Pantoprazole Sodium 40 mg DAILY PO 05/23/24 10:00 05/30/24 08:36 40 MG Hydralazine HCl 10 mg Q6HP PRN IV 05/23/24 05:00 05/24/24 01:34 10 MG Acetaminophen/ Hydrocodone Bitart 1 tab Q4HPRN PRN PO 05/23/24 12:00 05/30/24 08:37 1 TAB Prochlorperazine Edisylate 10 mg Q6HP PRN IV 05/23/24 12:00 05/30/24 05:11 10 MG Atorvastatin Calcium 20 mg DAILY PO 05/24/24 10:00 05/30/24 08:36 20 MG Metoprolol Tartrate 12.5 mg BID PO 05/23/24 22:00 05/29/24 21:54 12.5 MG Nortriptyline HCl 50 mg HS PO 05/23/24 22:00 05/29/24 21:53 50 MG Tamsulosin HCl 0.4 mg QPM PO 05/23/24 18:00 05/29/24 17:50 0.4 MG Morphine Sulfate 4 mg Q4HPRN PRN IV 05/23/24 13:45 05/30/24 16:29 4 MG Piperacillin Sod/ Tazobactam Sod 100 ml @ 25 mls/hr Q8HR IV 05/26/24 22:00 05/30/24 14:00 25 MLS/HR Enteral Nutritional Formula 27.5 gm BIDWM PO 05/27/24 18:00 05/30/24 18:00 27.5 GM Enoxaparin Sodium 80 mg Q12HR SC 05/27/24 22:00 05/30/24 08:36 80 MG Lactated Ringer's 1,000 ml @ 100 mls/hr Q10H IV 05/27/24 17:15 Dextrose/Sodium Chloride 1,000 ml @ 75 mls/hr [id number] IV 05/28/24 14:15 05/29/24 16:55 75 MLS/HR Diltiazem HCl 10 mg Q6HR IV 05/29/24 00:00 05/30/24 05:25 10 MG Examination: GENERAL:Normal, LUNGS:Normal, CVS:Normal, ABDOMEN:Normal, SKIN:Normal, NEURO:Normal laboratory and microbiology Laboratory Tests 05/30/24 10:13 Test 05/30/24 10:13 Range/Units Serum Glucose 106 74-106 mg/dL Labs and/or images reviewed: Labs reviewed by me, Image(s) reviewed by me Problem List/Assessment/Plan Problem List/Assessment/Plan 1. Small bowel obstruction Monitor, surgical consult, GI consult, NPO 2. HLD Monitor 3. Persistent atrial fibrillation Monitor, full dose Lovenox 4. Obesity Monitor 5. Hx gastric bypass Monitor 6. Benign essential HTN Monitor, antihypertensives 7. Gallstones Monitor, surgical consult, GI consult, NPO, HIDA scan Assessment/Plan Subjective Patient is awake and alert. Objective Patient had a fall in the hospital where he landed on his gluteal and left hip area. Patient is S/P ORIF by Dr. Eden. Patient has been working with physical therapy and has been cleared for discharge by orthopedic surgeon Patient was originally admitted for abdominal pain related to small bowel obstruction and possible chronic versus acute cholecystitis. Patient had HIDA scan done however HIDA scan was inconclusive since machine broke during time of procedure. We will repeat HIDA scan on Friday to determine if there is acute cholecystitis. Patient does report improvement in abdominal pain today and denies any nausea vomiting, has not had a bowel movement. We will place on clear liquid diet. Case was discussed with general surgeon Dr. Kelechi gar, we agreed that patient will need higher level of care if surgery is indicated due to his prior history of bariatric surgery. We will continue to advance diet as tolerated Plan Repeat HIDA scan on Friday to rule out acute cholecystitis due to persistent nausea and vomiting, refused NG tube, advance diet as tolerated, stopped fluids, Orthopedic consult appreciated. Monitor intake and output. Monitor bowel movements. Continue antibiotics for possible cholecystitis. Plan discussed with: Patient My Orders My Orders Orders - KONRAD ROCKWELL Procedure Category Date Status Time Full Liq Diet DIET 05/30/24 Transmitted Lunch Dietary Evaluation Review Comments: 1. advance diet as tolerated per MD 2. Consider EN/TPN if Pt remains NPO for 48 hours Expected Outcomes/Goals: 1. Pt will consume >75% estimated needs within 2-3 days Date of Service: May 30, 2024 Billing Provider: RICA HELLER MD Common Visit Codes: [id number] INP/OBS CARE (MOD) KONRAD ROCKWELL May 30, 2024 19:27
[2024-05-30] MEDS: POTASSIUM EFFERVESENT TAB 25 MEQ PO ONE (21:34)
[2024-05-31 05:00] VITALS: BP 105/66; PULSE 99; RESP 19; TEMP 98.5; O2SAT 97
--- NOTE | 2024-05-31 07:45 | DVHPN2 ---
Progress Note - Dictate Date Seen: May 31, 2024 Medical Necessity Reason Pt with a Central, PICC or Fol: No vital signs Vital Sign Date Time Temp Pulse Resp B/P (MAP) Pulse Ox O2 Delivery O2 Flow Rate FiO2 05/31/24 06:53 99 19 105/66 05/31/24 05:00 98.5 97 98.5 05/30/24 20:00 Nasal Cannula* 2 28 Total Intake and Output 05/30/24 05/30/24 05/31/24 15:00 23:00 07:00 Intake Total 900 ml 1000 ml Output Total 1000 ml Balance 900 ml 0 ml medications Current Medications Medications Dose Ordered Sig/Jason Route Start Time Stop Time Status Last Admin Dose Admin Sodium Chloride 1,000 ml @ 75 mls/hr [id number] IV 05/22/24 15:00 05/31/24 05:54 75 MLS/HR Ondansetron HCl 4 mg Q4HP PRN IV 05/22/24 15:00 05/30/24 20:02 4 MG Acetaminophen 650 mg Q6HP PRN PO 05/22/24 15:00 05/29/24 21:55 650 MG Allopurinol 100 mg DAILY PO 05/23/24 10:00 05/30/24 08:36 100 MG Citalopram Hydrobromide 20 mg DAILY PO 05/23/24 10:00 05/30/24 08:36 20 MG Lisinopril 10 mg BID PO 05/22/24 22:00 05/30/24 21:32 10 MG Pantoprazole Sodium 40 mg DAILY PO 05/23/24 10:00 05/30/24 08:36 40 MG Hydralazine HCl 10 mg Q6HP PRN IV 05/23/24 05:00 05/24/24 01:34 10 MG Acetaminophen/ Hydrocodone Bitart 1 tab Q4HPRN PRN PO 05/23/24 12:00 05/30/24 08:37 1 TAB Prochlorperazine Edisylate 10 mg Q6HP PRN IV 05/23/24 12:00 05/30/24 05:11 10 MG Atorvastatin Calcium 20 mg DAILY PO 05/24/24 10:00 05/30/24 08:36 20 MG Metoprolol Tartrate 12.5 mg BID PO 05/23/24 22:00 05/30/24 21:32 12.5 MG Nortriptyline HCl 50 mg HS PO 05/23/24 22:00 05/30/24 21:33 50 MG Tamsulosin HCl 0.4 mg QPM PO 05/23/24 18:00 05/30/24 19:38 0.4 MG Morphine Sulfate 4 mg Q4HPRN PRN IV 05/23/24 13:45 05/31/24 06:53 4 MG Piperacillin Sod/ Tazobactam Sod 100 ml @ 25 mls/hr Q8HR IV 05/26/24 22:00 05/31/24 05:53 25 MLS/HR Enteral Nutritional Formula 27.5 gm BIDWM PO 05/27/24 18:00 05/30/24 18:00 27.5 GM Enoxaparin Sodium 80 mg Q12HR SC 05/27/24 22:00 05/30/24 21:28 80 MG Diltiazem HCl 10 mg Q6HR IV 05/29/24 00:00 05/31/24 05:53 10 MG laboratory and microbiology Test 05/31/24 06:26 Range/Units Serum Glucose Pending Assessment/Plan Had mechanical fall and found to have hip fracture. S/p ORIF Patient is a 74-year-old gentleman who presented on May 22, 2024 for epigastric pain. It seems that he ate sandwich in this was followed by repeated abdominal pain and vomiting. He has been admitted with small-bowel obstruction. He also was found to have gallstones and gastric outlet obstruction. He has been seen by surgery and GI. He has been having NG tube. Patient does have history of paroxysmal AFib and is on Eliquis as outpatient. On 05/24 2024, the patient was found to have tachyarrhythmia and cardiology was involved for its evaluation and management. Telemetry revealed tachyarrhythmia in the rate of 150s. Tele was in favor of SVT. Patient was attached to the monitor and 6 mg of adenosine was given which resulted in breaking of the tachyarrhythmia inpatient been back to sinus rhythm. As per patient, he usually follows with Cardiology in [facility]. As per patient, he did have angiogram (cardiac catheterization some years ago and was told that it was normal findings). Lying flat in bed and not in acute distress. No JVD. Mucosa is pink and wet. No carotid bruit. No goiter. Lungs are clear to auscultation. At the time of evaluation the patient started to be in tachyarrhythmia and in palpitation. Later, heart rate decreased. No thrill/gallop. Abdomen is soft. Extremities do not reveal edema Past medical history includes atrial fibrillation (on Eliquis as outpatient), DJD, heart failure (diastolic), COPD, hypertension, hyperlipidemia, reported diabetes mellitus, obesity, old history of tonsillectomy and gastric bypass surgery. He is known to have kidney stones. Echocardiogram of January 2020 revealed ejection fraction of 60% and biatrial enlargement Creatinine: 1.0 - 1.02 - 1.12 - 1.24 - 1.12 - 1.07 - 0.96 - 0.82 - 0.79 - 0.95 Potassium: 4.3 - 4.4 - 4.9 - 3.7 - 3.7 - 3.5 - 3.8 - 3.3 - 3.2 - 3.6 Troponin (high sensitive): 19 - 11 TSH: 3.28 CT of the abdomen and pelvis revealed: IMPRESSION: 1. Cholelithiasis with the gallbladder distended. 2. Postop changes to the stomach with a fluid-filled distended stomach and dilated fluid-filled small bowel findings suggest small bowel obstruction. 3. Multiple bilateral nonobstructing renal calculi. 4. Prosthesis in the right hip. Chest x-ray revealed: Frontal chest radiograph demonstrates no acute osseous or superficial soft tissue abnormalities. Enteric tube visualized overlying the plane of the stomach. The trachea is midline. The cardiac silhouette and mediastinum are within normal limits. No pneumothorax, pleural effusions, or consolidations. Partially visualized gaseous distended loops of bowel. HIDA scan reported: IMPRESSION: 1. Findings may reflect chronic cholecystitis, cannot exclude acute cholecystitis due to lack of 30-60 minute images. KUB revealed: IMPRESSION: Findings concerning for small bowel obstruction versus ileus. Repeat KUB revealed: FINDINGS/IMPRESSION: Dilated loops of small bowel with gas and stool visualized in the colon. Findings appear improved compared to prior exam. Repeat KUB revealed: IMPRESSION: 1. There are air-filled dilated small bowel loops. Air and stool is seen within the colon. The findings appear mildly improved comparison to the prior study. The findings fairly stable and May relate to an ileus.. Clinical correlation and continued follow-up is recommended Repeat KUB revealed: Impression: 1. Nonobstructive bowel gas pattern. Gallbladder ultrasound reported: FINDINGS: Examination is limited. The gallbladder appears distended. The gallbladder wall measures 2 mm in thickness, within normal limits. Possible sludge in the gallbladder. Negative reported sonographic valladares's sign. The common bile duct measures 6 mm in diameter, within normal limits. The liver measures at the upper limits of normal in size, at 16.4 cm in craniocaudal dimension. Heterogeneous echotexture of the liver. The pancreas is obscured by bowel gas. The right kidney measures 9.6 cm. There is no hydronephrosis. Limited evaluation of the right kidney. Echogenic focus, possible renal calculus at the midpole measuring 1.4 cm. The patient does have renal calculi on recent CT exam. IMPRESSION: 1. Limited examination as described above. Possible gallbladder sludge and distended gallbladder. No sonographic evidence of acute cholecystitis. 2. Additional nonacute findings as described above. Left Hip Xry: FINDINGS/IMPRESSION: There is a displaced and impacted left intertrochanteric fracture. Patient is status post right hip arthroplasty. EKG revealed SVT Tele revealed SVT which later transitioned into sinus rhythm Echocardiogram revealed: Technically limited study secondary to poor acoustic windows. Left ventricle: Mild concentric left ventricular hypertrophy was seen. LVEF was 55-60%. Right ventricle was normal size with normal systolic function. Both atria were mildly dilated. Aortic valve was not well visualized. Aortic sclerosis with no stenosis was observed. [id number] aortic insufficiency was observed. Mild mitral/tricuspid regurgitation was seen. Tricuspid valve was not well visualized. Right ventricular systolic pressure was assessed around 25 mm Hg. There was no pericardial effusion. Ascending aorta was 4.5 cm. Patient is a 74-year-old gentleman who presented with abdominal pain and is being managed for small bowel obstruction. He does have history of paroxysmal AFib. Has not been taking his medications regularly and this was followed with tachyarrhythmia. Tachyarrhythmia was in favor of SVT. SVT responded to adenosine Small-bowel obstruction Obesity History of gastric bypass Paroxysmal AFib SVT Status post adenosine management Diabetes mellitus Obesity, morbid Gallstone Renal stone Cardiac suggestion for management: For now, manage on telemetry Follow-up electrolytes and kidney function tests and correct abnormalities Keep potassium above 4 and magnesium above 2 Continue Cardizem Continue metoprolol tartrate Evaluation and management of gallstones/gastric outlet obstruction as per primary team/GI/surgery Long-term continuation of anticoagulation is suggested (for now patient on Lovenox). Further evaluation and management depends on the above and clinical course A total of 55 minutes was spent reviewing the patient record, examining the patient, making a diagnostic and therapeutic plan, discussing this plan with medical personnel, following up on diagnostic studies and following the patient for clinical stability excluding any and all procedures. At least 50% of this time was spent in direct, [id number] contact. Thank you for allowing me to participate in this patient's care. Further recommendations will depend on patient's clinical course. Please do not hesitate to contact me if you have any questions or concerns. This medical document was created using electronic medical record system with [employer] computerized dictation system. Although this document has been carefully reviewed, there may still be some phonetic and typographical errors. These areas are purely typographical due to the imperfection of the software programs, and do not reflect any compromise in the patient's medical care. Dietary Evaluation Review Comments: 1. advance diet as tolerated per MD 2. Consider EN/TPN if Pt remains NPO for 48 hours Expected Outcomes/Goals: 1. Pt will consume >75% estimated needs within 2-3 days Plan discussed with: Other (nurse) BROOKS PRITCHARD MD May 31, 2024 07:45
[2024-05-31 08:00] VITALS: PULSE 74; PULSE 92; RESP 17; O2SAT 96
[2024-05-31 08:06] LABS: Hematocrit 26.6 % (41.0-53.0); Hemoglobin 8.9 g/dL (13.5-17.5); Mean Corpuscular Hemoglobin 29.7 pg (28.0-32.0); Mean Corpuscular Hgb Conc. 33.3 g/dL (32.0-36.0); Mean Corpuscular Volume 89.2 fL (80.0-100.0); Platelet Count (auto) 204 10^3/uL (140-450); Red Blood Cells 2.98 10^6/uL (4.5-5.90); Red Cell Distribution Width 15.9 % (11.8-14.3); White Blood Cell 5.8 10^3/uL (4.4-10.8)
[2024-05-31 08:07] LABS: Chloride 94 mmol/L (98-107); Potassium 3.6 mmol/L (3.5-5.1); Sodium 134 mmol/L (136-145)
[2024-05-31 08:08] LABS: Anion Gap 8 (5-15); Calcium 9.3 mg/dL (8.7-10.4); Carbon Dioxide 32 mmol/L (20-31)
[2024-05-31 08:14] LABS: BUN/Creatinine Ratio 22.1 (10.0-20.0); Blood Urea Nitrogen 21 mg/dL (9-23); Glucose 111 mg/dL (74-106)
[2024-05-31 08:15] LABS: Band Neutrophils % (manual) 0; Basophils % (manual) 0 (0.0-2.0); Blast Cells 0; Eosinophils % (manual) 0 (0-7); Metamyelocytes % 0; Myelocytes % 0; Promyelocytes % 0; Reactive Lymphocytes 0
[2024-05-31 09:00] VITALS: BP 123/85; PULSE 97; RESP 16; TEMP 97.8; O2SAT 92
[2024-05-31 12:27] LABS: Lymphocytes % (manual) 13 (10.0-50.0); Monocytes % (manual) 13 (0-12); Platelet Estimate Adequate
[2024-05-31 12:42] VITALS: BP 115/64; PULSE 88; RESP 17; TEMP 98; O2SAT 97
--- NOTE | 2024-05-31 14:42 | DVHPN2 ---
Progress Note - Dictate Date Seen: May 31, 2024 Medical Necessity Reason Pt with a Central, PICC or Fol: No vital signs Vital Sign Date Time Temp Pulse Resp B/P (MAP) Pulse Ox O2 Delivery O2 Flow Rate FiO2 05/31/24 12:42 98.0 88 17 115/64 (81) 97 98.0 05/30/24 20:00 Nasal Cannula* 2 28 Total Intake and Output 05/30/24 05/30/24 05/31/24 15:00 23:00 07:00 Intake Total 900 ml 1000 ml Output Total 1000 ml Balance 900 ml 0 ml medications Current Medications Medications Dose Ordered Sig/Jason Route Start Time Stop Time Status Last Admin Dose Admin Sodium Chloride 1,000 ml @ 75 mls/hr [id number] IV 05/22/24 15:00 05/31/24 05:54 75 MLS/HR Ondansetron HCl 4 mg Q4HP PRN IV 05/22/24 15:00 05/31/24 11:27 4 MG Acetaminophen 650 mg Q6HP PRN PO 05/22/24 15:00 05/29/24 21:55 650 MG Allopurinol 100 mg DAILY PO 05/23/24 10:00 05/31/24 11:16 100 MG Citalopram Hydrobromide 20 mg DAILY PO 05/23/24 10:00 05/31/24 11:15 20 MG Lisinopril 10 mg BID PO 05/22/24 22:00 05/31/24 11:15 10 MG Pantoprazole Sodium 40 mg DAILY PO 05/23/24 10:00 05/31/24 11:16 40 MG Hydralazine HCl 10 mg Q6HP PRN IV 05/23/24 05:00 05/24/24 01:34 10 MG Acetaminophen/ Hydrocodone Bitart 1 tab Q4HPRN PRN PO 05/23/24 12:00 05/30/24 08:37 1 TAB Prochlorperazine Edisylate 10 mg Q6HP PRN IV 05/23/24 12:00 05/30/24 05:11 10 MG Atorvastatin Calcium 20 mg DAILY PO 05/24/24 10:00 05/31/24 11:16 20 MG Metoprolol Tartrate 12.5 mg BID PO 05/23/24 22:00 05/31/24 11:16 12.5 MG Nortriptyline HCl 50 mg HS PO 05/23/24 22:00 05/30/24 21:33 50 MG Tamsulosin HCl 0.4 mg QPM PO 05/23/24 18:00 05/30/24 19:38 0.4 MG Morphine Sulfate 4 mg Q4HPRN PRN IV 05/23/24 13:45 05/31/24 11:27 4 MG Piperacillin Sod/ Tazobactam Sod 100 ml @ 25 mls/hr Q8HR IV 05/26/24 22:00 05/31/24 05:53 25 MLS/HR Enteral Nutritional Formula 27.5 gm BIDWM PO 05/27/24 18:00 05/31/24 10:54 27.5 GM Enoxaparin Sodium 80 mg Q12HR SC 05/27/24 22:00 05/31/24 11:14 80 MG Diltiazem HCl 10 mg Q6HR IV 05/29/24 00:00 05/31/24 11:27 10 MG objective General Appearance: alert, no distress HEENT: EOMI, PERRLA, normal external inspect of ears, no icterus, no nasal drainage Neck: no carotid bruit, no jugular venous distention (JVD), no lymphadenopathy Chest: normal thorax Respiratory: clear to auscultation, normal air movement Cardiovascular: regular rate and rhythm, no diastolic murmur, no jugular venous distention (JVD), no rub, no systolic murmur Abdominal: soft, no hepatomegaly, no mass, no splenomegaly, no tenderness Genitourinary: grossly normal external Musculoskeletal: no joint tenderness, no swelling Extremities: normal pulses, no calf tenderness, no clubbing, no cyanosis, no edema Skin: no bruising, no jaundice, no rash Neurological: alert, No focal deficit laboratory and microbiology Laboratory Tests 05/31/24 06:26 Test 05/31/24 06:26 Range/Units Serum Glucose 111 H 74-106 mg/dL Problem List 1. Small bowel obstruction Monitor, surgical consult, GI consult, NPO 2. HLD Monitor 3. Persistent atrial fibrillation Monitor, full dose Lovenox 4. Obesity Monitor 5. Hx gastric bypass Monitor 6. Benign essential HTN Monitor, antihypertensives 7. Gallstones Monitor, surgical consult, GI consult, NPO, HIDA scan Assessment/Plan Subjective Patient awake and alert. Objective Patient was originally admitted on 05/22/2024 for abdominal pain related to ileus versus small bowel obstruction. Patient also has chronic cholecystitis versus acute cholecystitis. Additional HIDA scan is inconclusive due to machine not working accurately. Ultrasound of gallbladder today shows distended gallbladder with no sonographic evidence of cholecystitis. Repeat x-ray of abdomen on 05/29/2024 show a nonobstructive gas pattern. Patient has had multiple bowel movements since admitted. Patient did sustain a fall while hospitalized in which he broke his left hip. Patient is status post ORIF Of left hip on 05/27/24. Patient currently has a sitter in place. Patient was having additional nausea and vomiting last night and he was replaced back on clear liquid diet and then made n.p.o. for HIDA scan Plan Monitor input and output. Continue physical therapy. Plan for HIDA scan to rule out acute cholecystitis. Surgery recommendations appreciated. Daily labs. Dietary Evaluation Review Comments: 1. advance diet as tolerated per MD 2. Consider EN/TPN if Pt remains NPO for 48 hours Expected Outcomes/Goals: 1. Pt will consume >75% estimated needs within 2-3 days Plan discussed with: Patient, Other [employer] May 31, 2024 14:42
[2024-05-31 17:30] VITALS: BP 125/53; PULSE 87; RESP 16; TEMP 97.7; O2SAT 97
[2024-05-31 20:00] VITALS: PULSE 100
--- NOTE | 2024-06-01 07:47 | DVHPN2 ---
Progress Note - Dictate Date Seen: Jun 01, 2024 Medical Necessity Reason Pt with a Central, PICC or Fol: No vital signs Vital Sign Date Time Temp Pulse Resp B/P (MAP) Pulse Ox O2 Delivery O2 Flow Rate FiO2 06/01/24 03:38 98 18 112/60 05/31/24 19:58 Nasal Cannula* 2 05/31/24 17:30 97.7 97 97.7 Total Intake and Output 05/31/24 05/31/24 06/01/24 15:00 23:00 07:00 Intake Total 700 ml 275 ml 200 ml Output Total 500 ml 0 ml Balance 200 ml 275 ml 200 ml medications Current Medications Medications Dose Ordered Sig/Jason Route Start Time Stop Time Status Last Admin Dose Admin Sodium Chloride 1,000 ml @ 75 mls/hr [id number] IV 05/22/24 15:00 05/31/24 05:54 75 MLS/HR Ondansetron HCl 4 mg Q4HP PRN IV 05/22/24 15:00 05/31/24 11:27 4 MG Acetaminophen 650 mg Q6HP PRN PO 05/22/24 15:00 05/29/24 21:55 650 MG Allopurinol 100 mg DAILY PO 05/23/24 10:00 05/31/24 11:16 100 MG Citalopram Hydrobromide 20 mg DAILY PO 05/23/24 10:00 05/31/24 11:15 20 MG Lisinopril 10 mg BID PO 05/22/24 22:00 05/31/24 21:08 10 MG Pantoprazole Sodium 40 mg DAILY PO 05/23/24 10:00 05/31/24 11:16 40 MG Hydralazine HCl 10 mg Q6HP PRN IV 05/23/24 05:00 05/24/24 01:34 10 MG Acetaminophen/ Hydrocodone Bitart 1 tab Q4HPRN PRN PO 05/23/24 12:00 05/30/24 08:37 1 TAB Prochlorperazine Edisylate 10 mg Q6HP PRN IV 05/23/24 12:00 05/30/24 05:11 10 MG Atorvastatin Calcium 20 mg DAILY PO 05/24/24 10:00 05/31/24 11:16 20 MG Metoprolol Tartrate 12.5 mg BID PO 05/23/24 22:00 05/31/24 21:07 12.5 MG Nortriptyline HCl 50 mg HS PO 05/23/24 22:00 05/31/24 21:09 50 MG Tamsulosin HCl 0.4 mg QPM PO 05/23/24 18:00 05/31/24 18:54 0.4 MG Morphine Sulfate 4 mg Q4HPRN PRN IV 05/23/24 13:45 06/01/24 03:08 4 MG Piperacillin Sod/ Tazobactam Sod 100 ml @ 25 mls/hr Q8HR IV 05/26/24 22:00 06/01/24 06:01 25 MLS/HR Enteral Nutritional Formula 27.5 gm BIDWM PO 05/27/24 18:00 05/31/24 10:54 27.5 GM Enoxaparin Sodium 80 mg Q12HR SC 05/27/24 22:00 05/31/24 21:10 80 MG Diltiazem HCl 10 mg Q6HR IV 05/29/24 00:00 06/01/24 06:01 10 MG laboratory and microbiology Laboratory Tests 05/31/24 06:26 Test 05/31/24 06:26 Range/Units Serum Glucose 111 H 74-106 mg/dL Assessment/Plan Had mechanical fall and found to have hip fracture. S/p ORIF Patient is a 74-year-old gentleman who presented on May 22, 2024 for epigastric pain. It seems that he ate sandwich in this was followed by repeated abdominal pain and vomiting. He has been admitted with small-bowel obstruction. He also was found to have gallstones and gastric outlet obstruction. He has been seen by surgery and GI. He has been having NG tube. Patient does have history of paroxysmal AFib and is on Eliquis as outpatient. On 05/24 2024, the patient was found to have tachyarrhythmia and cardiology was involved for its evaluation and management. Telemetry revealed tachyarrhythmia in the rate of 150s. Tele was in favor of SVT. Patient was attached to the monitor and 6 mg of adenosine was given which resulted in breaking of the tachyarrhythmia inpatient been back to sinus rhythm. As per patient, he usually follows with Cardiology in [facility]. As per patient, he did have angiogram (cardiac catheterization some years ago and was told that it was normal findings). Lying flat in bed and not in acute distress. No JVD. Mucosa is pink and wet. No carotid bruit. No goiter. Lungs are clear to auscultation. At the time of evaluation the patient started to be in tachyarrhythmia and in palpitation. Later, heart rate decreased. No thrill/gallop. Abdomen is soft. Extremities do not reveal edema Past medical history includes atrial fibrillation (on Eliquis as outpatient), DJD, heart failure (diastolic), COPD, hypertension, hyperlipidemia, reported diabetes mellitus, obesity, old history of tonsillectomy and gastric bypass surgery. He is known to have kidney stones. Echocardiogram of January 2020 revealed ejection fraction of 60% and biatrial enlargement Creatinine: 1.0 - 1.02 - 1.12 - 1.24 - 1.12 - 1.07 - 0.96 - 0.82 - 0.79 - 0.95 Potassium: 4.3 - 4.4 - 4.9 - 3.7 - 3.7 - 3.5 - 3.8 - 3.3 - 3.2 - 3.6 Troponin (high sensitive): 19 - 11 TSH: 3.28 CT of the abdomen and pelvis revealed: IMPRESSION: 1. Cholelithiasis with the gallbladder distended. 2. Postop changes to the stomach with a fluid-filled distended stomach and dilated fluid-filled small bowel findings suggest small bowel obstruction. 3. Multiple bilateral nonobstructing renal calculi. 4. Prosthesis in the right hip. Chest x-ray revealed: Frontal chest radiograph demonstrates no acute osseous or superficial soft tissue abnormalities. Enteric tube visualized overlying the plane of the stomach. The trachea is midline. The cardiac silhouette and mediastinum are within normal limits. No pneumothorax, pleural effusions, or consolidations. Partially visualized gaseous distended loops of bowel. HIDA scan reported: IMPRESSION: 1. Findings may reflect chronic cholecystitis, cannot exclude acute cholecystitis due to lack of 30-60 minute images. KUB revealed: IMPRESSION: Findings concerning for small bowel obstruction versus ileus. Repeat KUB revealed: FINDINGS/IMPRESSION: Dilated loops of small bowel with gas and stool visualized in the colon. Findings appear improved compared to prior exam. Repeat KUB revealed: IMPRESSION: 1. There are air-filled dilated small bowel loops. Air and stool is seen within the colon. The findings appear mildly improved comparison to the prior study. The findings fairly stable and May relate to an ileus.. Clinical correlation and continued follow-up is recommended Repeat KUB revealed: Impression: 1. Nonobstructive bowel gas pattern. Gallbladder ultrasound reported: FINDINGS: Examination is limited. The gallbladder appears distended. The gallbladder wall measures 2 mm in thickness, within normal limits. Possible sludge in the gallbladder. Negative reported sonographic valladares's sign. The common bile duct measures 6 mm in diameter, within normal limits. The liver measures at the upper limits of normal in size, at 16.4 cm in craniocaudal dimension. Heterogeneous echotexture of the liver. The pancreas is obscured by bowel gas. The right kidney measures 9.6 cm. There is no hydronephrosis. Limited evaluation of the right kidney. Echogenic focus, possible renal calculus at the midpole measuring 1.4 cm. The patient does have renal calculi on recent CT exam. IMPRESSION: 1. Limited examination as described above. Possible gallbladder sludge and distended gallbladder. No sonographic evidence of acute cholecystitis. 2. Additional nonacute findings as described above. Left Hip Xry: FINDINGS/IMPRESSION: There is a displaced and impacted left intertrochanteric fracture. Patient is status post right hip arthroplasty. EKG revealed SVT Tele revealed SVT which later transitioned into sinus rhythm Echocardiogram revealed: Technically limited study secondary to poor acoustic windows. Left ventricle: Mild concentric left ventricular hypertrophy was seen. LVEF was 55-60%. Right ventricle was normal size with normal systolic function. Both atria were mildly dilated. Aortic valve was not well visualized. Aortic sclerosis with no stenosis was observed. Cdal-ct-[id number] aortic insufficiency was observed. Mild mitral/tricuspid regurgitation was seen. Tricuspid valve was not well visualized. Right ventricular systolic pressure was assessed around 25 mm Hg. There was no pericardial effusion. Ascending aorta was 4.5 cm. Patient is a 74-year-old gentleman who presented with abdominal pain and is being managed for small bowel obstruction. He does have history of paroxysmal AFib. Has not been taking his medications regularly and this was followed with tachyarrhythmia. Tachyarrhythmia was in favor of SVT. SVT responded to adenosine Small-bowel obstruction Obesity History of gastric bypass Paroxysmal AFib SVT Status post adenosine management Diabetes mellitus Obesity, morbid Gallstone Renal stone Cardiac suggestion for management: For now, manage on telemetry Follow-up electrolytes and kidney function tests and correct abnormalities Keep potassium above 4 and magnesium above 2 Continue Cardizem Continue metoprolol tartrate Evaluation and management of gallstones/gastric outlet obstruction as per primary team/GI/surgery Long-term continuation of anticoagulation is suggested (for now patient on Lovenox). Further evaluation and management depends on the above and clinical course A total of 55 minutes was spent reviewing the patient record, examining the patient, making a diagnostic and therapeutic plan, discussing this plan with medical personnel, following up on diagnostic studies and following the patient for clinical stability excluding any and all procedures. At least 50% of this time was spent in direct, [id number] contact. Thank you for allowing me to participate in this patient's care. Further recommendations will depend on patient's clinical course. Please do not hesitate to contact me if you have any questions or concerns. This medical document was created using electronic medical record system with [employer] computerized dictation system. Although this document has been carefully reviewed, there may still be some phonetic and typographical errors. These areas are purely typographical due to the imperfection of the software programs, and do not reflect any compromise in the patient's medical care. Dietary Evaluation Review Comments: 1. advance diet as tolerated per MD 2. Consider EN/TPN if Pt remains NPO for 48 hours Expected Outcomes/Goals: 1. Pt will consume >75% estimated needs within 2-3 days Plan discussed with: Other (nurse) BROOKS PRITCHARD MD Jun 01, 2024 07:47
[2024-06-01 08:00] VITALS: PULSE 95
[2024-06-01 09:05] VITALS: BP 107/54; PULSE 96; RESP 20; TEMP 97.5; O2SAT 92
[2024-06-01 13:00] VITALS: BP 112/63; PULSE 91; RESP 20; TEMP 98.1; O2SAT 97
--- NOTE | 2024-06-01 16:11 | DVHPN2 ---
Progress Note - Dictate Date Seen: Jun 01, 2024 Medical Necessity Reason Pt with a Central, PICC or Fol: No vital signs Vital Sign Date Time Temp Pulse Resp B/P (MAP) Pulse Ox O2 Delivery O2 Flow Rate FiO2 06/01/24 13:00 94 16 110/62 06/01/24 09:05 97.5 92 97.5 05/31/24 19:58 Nasal Cannula* 2 28 Total Intake and Output 05/31/24 05/31/24 06/01/24 15:00 23:00 07:00 Intake Total 700 ml 275 ml 200 ml Output Total 500 ml 0 ml Balance 200 ml 275 ml 200 ml medications Current Medications Medications Dose Ordered Sig/Jason Route Start Time Stop Time Status Last Admin Dose Admin Sodium Chloride 1,000 ml @ 75 mls/hr [id number] IV 05/22/24 15:00 05/31/24 05:54 75 MLS/HR Ondansetron HCl 4 mg Q4HP PRN IV 05/22/24 15:00 05/31/24 11:27 4 MG Acetaminophen 650 mg Q6HP PRN PO 05/22/24 15:00 05/29/24 21:55 650 MG Allopurinol 100 mg DAILY PO 05/23/24 10:00 06/01/24 10:13 100 MG Citalopram Hydrobromide 20 mg DAILY PO 05/23/24 10:00 06/01/24 10:13 20 MG Lisinopril 10 mg BID PO 05/22/24 22:00 05/31/24 21:08 10 MG Pantoprazole Sodium 40 mg DAILY PO 05/23/24 10:00 06/01/24 10:13 40 MG Hydralazine HCl 10 mg Q6HP PRN IV 05/23/24 05:00 05/24/24 01:34 10 MG Prochlorperazine Edisylate 10 mg Q6HP PRN IV 05/23/24 12:00 05/30/24 05:11 10 MG Atorvastatin Calcium 20 mg DAILY PO 05/24/24 10:00 06/01/24 10:13 20 MG Metoprolol Tartrate 12.5 mg BID PO 05/23/24 22:00 05/31/24 21:07 12.5 MG Nortriptyline HCl 50 mg HS PO 05/23/24 22:00 05/31/24 21:09 50 MG Tamsulosin HCl 0.4 mg QPM PO 05/23/24 18:00 05/31/24 18:54 0.4 MG Morphine Sulfate 4 mg Q4HPRN PRN IV 05/23/24 13:45 06/01/24 10:14 4 MG Piperacillin Sod/ Tazobactam Sod 100 ml @ 25 mls/hr Q8HR IV 05/26/24 22:00 06/01/24 14:40 25 MLS/HR Enteral Nutritional Formula 27.5 gm BIDWM PO 05/27/24 18:00 05/31/24 10:54 27.5 GM Enoxaparin Sodium 80 mg Q12HR SC 05/27/24 22:00 06/01/24 10:13 80 MG Diltiazem HCl 10 mg Q6HR IV 05/29/24 00:00 06/01/24 12:38 10 MG objective General Appearance: alert, no distress HEENT: EOMI, PERRLA, normal external inspect of ears, no icterus, no nasal drainage Neck: no carotid bruit, no jugular venous distention (JVD), no lymphadenopathy Chest: normal thorax Respiratory: clear to auscultation, normal air movement Cardiovascular: regular rate and rhythm, no diastolic murmur, no jugular venous distention (JVD), no rub, no systolic murmur Abdominal: soft, no hepatomegaly, no mass, no splenomegaly, no tenderness Genitourinary: grossly normal external Musculoskeletal: no joint tenderness, no swelling Extremities: normal pulses, no calf tenderness, no clubbing, no cyanosis, no edema Skin: no bruising, no jaundice, no rash Neurological: alert, No focal deficit laboratory and microbiology Laboratory Tests 05/31/24 06:26 Test 05/31/24 06:26 Range/Units Serum Glucose 111 H 74-106 mg/dL Problem List 1. Small bowel obstruction Monitor, surgical consult, GI consult, NPO 2. HLD Monitor 3. Persistent atrial fibrillation Monitor, full dose Lovenox 4. Obesity Monitor 5. Hx gastric bypass Monitor 6. Benign essential HTN Monitor, antihypertensives 7. Gallstones Monitor, surgical consult, GI consult, NPO, HIDA scan Assessment/Plan Subjective Patient is awake and alert. Objective Patient has a resolving small bowel obstruction. He apparently had 2 bowel movements yesterday. Repeat imaging shows normal bowel pattern. Repeat HIDA scan shows no signs of active cholecystitis. Patient states he was having emesis related to Zosyn. Patient is status post ORIF of his left hip on 05/27/2024 status post fall here in the hospital. Patient states he has not been able to work with physical therapy because he is very weak due to n.p.o. Status. Plan Advance diet. Request for boost. Continue physical therapy twice a day. Patient states he does not want to go to a jail facility. He lives at home alone. Arrange for home health. Stop Zosyn. Discharge planning. Dietary Evaluation Review Comments: 1. advance diet as tolerated per MD 2. Consider EN/TPN if Pt remains NPO for 48 hours Expected Outcomes/Goals: 1. Pt will consume >75% estimated needs within 2-3 days Plan discussed with: Patient, Other TETO CRAMER NP Jun 01, 2024 16:11
--- NOTE | 2024-06-01 16:38 | DVH ---
Procedure: NM NM HIDA SCAN Exam Date: 06/01/2024 02:38 PM Clinical History: RULE OUT SBO Comparison Study: [facility] HIDA SCAN on DOS: 05/25/24 Nuclear Medicine Hepatobiliary Scan. Technique: Following the intravenous administration of 6 mCi of technetium 99m labeled Choletec multiple planar abdominal planar images were obtained in anterior projection in 5 minute intervals for45 minutes . Ri ght lateral images were obtained at 45 minutes after injection. Findings: The liver appears grossly normal in size. There is no abnormal persistence of the cardiac or blood po ol activity. There is prompt visualization of the gallbladder and excretion of activity into the smal l bowel. Impression: 1. Unremarkable hepatobiliary study without evidence of acute cholecystitis.
[2024-06-01 16:42] VITALS: BP 116/54; PULSE 75; RESP 18; TEMP 98.3; O2SAT 94
[2024-06-01] MEDS: Glucerna Carbsteady SHAKE Chocolate 8oz PO SCH (18:19)
[2024-06-01 20:00] VITALS: PULSE 96
[2024-06-01 21:00] VITALS: BP 137/57; PULSE 104; RESP 18; TEMP 99; O2SAT 96
[2024-06-02] VITALS (8 sets, daily range): BP systolic 90–134; BP diastolic 53–62; PULSE 80–105; RESP 18–20; TEMP 97.7–98.6; O2SAT 95–99
--- NOTE | 2024-06-02 07:06 | DVHPN2 ---
Progress Note - Dictate Date Seen: Jun 02, 2024 Medical Necessity Reason Pt with a Central, PICC or Fol: No vital signs Vital Sign Date Time Temp Pulse Resp B/P (MAP) Pulse Ox O2 Delivery O2 Flow Rate FiO2 06/02/24 05:00 98.6 91 18 123/53 (76) 96 98.6 06/01/24 20:00 Nasal Cannula* 2 28 Total Intake and Output 06/01/24 06/01/24 06/02/24 15:00 23:00 07:00 Intake Total 750 ml 1000 ml Output Total 850 ml 350 ml Balance -100 ml 650 ml medications Current Medications Medications Dose Ordered Sig/Jason Route Start Time Stop Time Status Last Admin Dose Admin Sodium Chloride 1,000 ml @ 75 mls/hr [id number] IV 05/22/24 15:00 06/01/24 17:36 75 MLS/HR Ondansetron HCl 4 mg Q4HP PRN IV 05/22/24 15:00 05/31/24 11:27 4 MG Acetaminophen 650 mg Q6HP PRN PO 05/22/24 15:00 05/29/24 21:55 650 MG Allopurinol 100 mg DAILY PO 05/23/24 10:00 06/01/24 10:13 100 MG Citalopram Hydrobromide 20 mg DAILY PO 05/23/24 10:00 06/01/24 10:13 20 MG Lisinopril 10 mg BID PO 05/22/24 22:00 06/01/24 22:06 10 MG Pantoprazole Sodium 40 mg DAILY PO 05/23/24 10:00 06/01/24 10:13 40 MG Hydralazine HCl 10 mg Q6HP PRN IV 05/23/24 05:00 05/24/24 01:34 10 MG Prochlorperazine Edisylate 10 mg Q6HP PRN IV 05/23/24 12:00 05/30/24 05:11 10 MG Atorvastatin Calcium 20 mg DAILY PO 05/24/24 10:00 06/01/24 10:13 20 MG Metoprolol Tartrate 12.5 mg BID PO 05/23/24 22:00 06/01/24 22:09 12.5 MG Nortriptyline HCl 50 mg HS PO 05/23/24 22:00 06/01/24 22:02 50 MG Tamsulosin HCl 0.4 mg QPM PO 05/23/24 18:00 06/01/24 17:43 0.4 MG Enteral Nutritional Formula 27.5 gm BIDWM PO 05/27/24 18:00 05/31/24 10:54 27.5 GM Enoxaparin Sodium 80 mg Q12HR SC 05/27/24 22:00 06/01/24 22:06 80 MG Diltiazem HCl 10 mg Q6HR IV 05/29/24 00:00 06/02/24 06:00 10 MG Enteral Nutritional Formula 240 ml TIDWM PO 06/01/24 18:00 06/01/24 18:19 240 ML laboratory and microbiology Laboratory Tests 05/31/24 06:26 Test 05/31/24 06:26 Range/Units Serum Glucose 111 H 74-106 mg/dL Assessment/Plan Had mechanical fall and found to have hip fracture. S/p ORIF Patient is a 74-year-old gentleman who presented on May 22, 2024 for epigastric pain. It seems that he ate sandwich in this was followed by repeated abdominal pain and vomiting. He has been admitted with small-bowel obstruction. He also was found to have gallstones and gastric outlet obstruction. He has been seen by surgery and GI. He has been having NG tube. Patient does have history of paroxysmal AFib and is on Eliquis as outpatient. On 05/24 2024, the patient was found to have tachyarrhythmia and cardiology was involved for its evaluation and management. Telemetry revealed tachyarrhythmia in the rate of 150s. Tele was in favor of SVT. Patient was attached to the monitor and 6 mg of adenosine was given which resulted in breaking of the tachyarrhythmia inpatient been back to sinus rhythm. As per patient, he usually follows with Cardiology in [facility] As per patient, he did have angiogram (cardiac catheterization some years ago and was told that it was normal findings). Lying flat in bed and not in acute distress. No JVD. Mucosa is pink and wet. No carotid bruit. No goiter. Lungs are clear to auscultation. At the time of evaluation the patient started to be in tachyarrhythmia and in palpitation. Later, heart rate decreased. No thrill/gallop. Abdomen is soft. Extremities do not reveal edema Past medical history includes atrial fibrillation (on Eliquis as outpatient), DJD, heart failure (diastolic), COPD, hypertension, hyperlipidemia, reported diabetes mellitus, obesity, old history of tonsillectomy and gastric bypass surgery. He is known to have kidney stones. Echocardiogram of January 2020 revealed ejection fraction of 60% and biatrial enlargement Creatinine: 1.0 - 1.02 - 1.12 - 1.24 - 1.12 - 1.07 - 0.96 - 0.82 - 0.79 - 0.95 Potassium: 4.3 - 4.4 - 4.9 - 3.7 - 3.7 - 3.5 - 3.8 - 3.3 - 3.2 - 3.6 Troponin (high sensitive): 19 - 11 TSH: 3.28 CT of the abdomen and pelvis revealed: IMPRESSION: 1. Cholelithiasis with the gallbladder distended. 2. Postop changes to the stomach with a fluid-filled distended stomach and dilated fluid-filled small bowel findings suggest small bowel obstruction. 3. Multiple bilateral nonobstructing renal calculi. 4. Prosthesis in the right hip. Chest x-ray revealed: Frontal chest radiograph demonstrates no acute osseous or superficial soft tissue abnormalities. Enteric tube visualized overlying the plane of the stomach. The trachea is midline. The cardiac silhouette and mediastinum are within normal limits. No pneumothorax, pleural effusions, or consolidations. Partially visualized gaseous distended loops of bowel. HIDA scan reported: IMPRESSION: 1. Findings may reflect chronic cholecystitis, cannot exclude acute cholecystitis due to lack of 30-60 minute images. KUB revealed: IMPRESSION: Findings concerning for small bowel obstruction versus ileus. Repeat KUB revealed: FINDINGS/IMPRESSION: Dilated loops of small bowel with gas and stool visualized in the colon. Findings appear improved compared to prior exam. Repeat KUB revealed: IMPRESSION: 1. There are air-filled dilated small bowel loops. Air and stool is seen within the colon. The findings appear mildly improved comparison to the prior study. The findings fairly stable and May relate to an ileus.. Clinical correlation and continued follow-up is recommended Repeat KUB revealed: Impression: 1. Nonobstructive bowel gas pattern. Gallbladder ultrasound reported: FINDINGS: Examination is limited. The gallbladder appears distended. The gallbladder wall measures 2 mm in thickness, within normal limits. Possible sludge in the gallbladder. Negative reported sonographic valladares's sign. The common bile duct measures 6 mm in diameter, within normal limits. The liver measures at the upper limits of normal in size, at 16.4 cm in craniocaudal dimension. Heterogeneous echotexture of the liver. The pancreas is obscured by bowel gas. The right kidney measures 9.6 cm. There is no hydronephrosis. Limited evaluation of the right kidney. Echogenic focus, possible renal calculus at the midpole measuring 1.4 cm. The patient does have renal calculi on recent CT exam. IMPRESSION: 1. Limited examination as described above. Possible gallbladder sludge and distended gallbladder. No sonographic evidence of acute cholecystitis. 2. Additional nonacute findings as described above. HIDA scan revealed: Impression: 1. Unremarkable hepatobiliary study without evidence of acute cholecystitis. Left Hip Xry: FINDINGS/IMPRESSION: There is a displaced and impacted left intertrochanteric fracture. Patient is status post right hip arthroplasty. EKG revealed SVT Tele revealed SVT which later transitioned into sinus rhythm Echocardiogram revealed: Technically limited study secondary to poor acoustic windows. Left ventricle: Mild concentric left ventricular hypertrophy was seen. LVEF was 55-60%. Right ventricle was normal size with normal systolic function. Both atria were mildly dilated. Aortic valve was not well visualized. Aortic sclerosis with no stenosis was observed. [id number] aortic insufficiency was observed. Mild mitral/tricuspid regurgitation was seen. Tricuspid valve was not well visualized. Right ventricular systolic pressure was assessed around 25 mm Hg. There was no pericardial effusion. Ascending aorta was 4.5 cm. Patient is a 74-year-old gentleman who presented with abdominal pain and is being managed for small bowel obstruction. He does have history of paroxysmal AFib. Has not been taking his medications regularly and this was followed with tachyarrhythmia. Tachyarrhythmia was in favor of SVT. SVT responded to adenosine Small-bowel obstruction Obesity History of gastric bypass Paroxysmal AFib SVT Status post adenosine management Diabetes mellitus Obesity, morbid Gallstone Renal stone Cardiac suggestion for management: For now, manage on telemetry Follow-up electrolytes and kidney function tests and correct abnormalities Keep potassium above 4 and magnesium above 2 Continue Cardizem Continue metoprolol tartrate Evaluation and management of gallstones/gastric outlet obstruction as per primary team/GI/surgery Long-term continuation of anticoagulation is suggested (for now patient on Lovenox). Further evaluation and management depends on the above and clinical course A total of 55 minutes was spent reviewing the patient record, examining the patient, making a diagnostic and therapeutic plan, discussing this plan with medical personnel, following up on diagnostic studies and following the patient for clinical stability excluding any and all procedures. At least 50% of this time was spent in direct, [id number] contact. Thank you for allowing me to participate in this patient's care. Further recommendations will depend on patient's clinical course. Please do not hesitate to contact me if you have any questions or concerns. This medical document was created using electronic medical record system with [employer] computerized dictation system. Although this document has been carefully reviewed, there may still be some phonetic and typographical errors. These areas are purely typographical due to the imperfection of the software programs, and do not reflect any compromise in the patient's medical care. Dietary Evaluation Review Comments: 1. advance diet as tolerated per MD 2. Consider EN/TPN if Pt remains NPO for 48 hours Expected Outcomes/Goals: 1. Pt will consume >75% estimated needs within 2-3 days Plan discussed with: Other (nurse) BROOKS PRITCHARD MD Jun 02, 2024 07:06
--- NOTE | 2024-06-02 08:13 | DVHPN2 ---
Progress Note - Dictate Date Seen: Jun 02, 2024 Medical Necessity Reason Pt with a Central, PICC or Fol: No vital signs Vital Sign Date Time Temp Pulse Resp B/P (MAP) Pulse Ox O2 Delivery O2 Flow Rate FiO2 06/02/24 05:00 98.6 91 18 123/53 (76) 96 98.6 06/01/24 20:00 Nasal Cannula* 2 28 Total Intake and Output 06/01/24 06/01/24 06/02/24 15:00 23:00 07:00 Intake Total 750 ml 1000 ml Output Total 850 ml 350 ml Balance -100 ml 650 ml medications Current Medications Medications Dose Ordered Sig/Jason Route Start Time Stop Time Status Last Admin Dose Admin Sodium Chloride 1,000 ml @ 75 mls/hr [id number] IV 05/22/24 15:00 06/01/24 17:36 75 MLS/HR Ondansetron HCl 4 mg Q4HP PRN IV 05/22/24 15:00 05/31/24 11:27 4 MG Acetaminophen 650 mg Q6HP PRN PO 05/22/24 15:00 05/29/24 21:55 650 MG Allopurinol 100 mg DAILY PO 05/23/24 10:00 06/01/24 10:13 100 MG Citalopram Hydrobromide 20 mg DAILY PO 05/23/24 10:00 06/01/24 10:13 20 MG Lisinopril 10 mg BID PO 05/22/24 22:00 06/01/24 22:06 10 MG Pantoprazole Sodium 40 mg DAILY PO 05/23/24 10:00 06/01/24 10:13 40 MG Hydralazine HCl 10 mg Q6HP PRN IV 05/23/24 05:00 05/24/24 01:34 10 MG Prochlorperazine Edisylate 10 mg Q6HP PRN IV 05/23/24 12:00 05/30/24 05:11 10 MG Atorvastatin Calcium 20 mg DAILY PO 05/24/24 10:00 06/01/24 10:13 20 MG Metoprolol Tartrate 12.5 mg BID PO 05/23/24 22:00 06/01/24 22:09 12.5 MG Nortriptyline HCl 50 mg HS PO 05/23/24 22:00 06/01/24 22:02 50 MG Tamsulosin HCl 0.4 mg QPM PO 05/23/24 18:00 06/01/24 17:43 0.4 MG Enteral Nutritional Formula 27.5 gm BIDWM PO 05/27/24 18:00 05/31/24 10:54 27.5 GM Enoxaparin Sodium 80 mg Q12HR SC 05/27/24 22:00 06/01/24 22:06 80 MG Diltiazem HCl 10 mg Q6HR IV 05/29/24 00:00 06/02/24 06:00 10 MG Enteral Nutritional Formula 240 ml TIDWM PO 06/01/24 18:00 06/01/24 18:19 240 ML objective General Appearance: alert, no distress HEENT: EOMI, PERRLA, normal external inspect of ears, no icterus, no nasal drainage Neck: no carotid bruit, no jugular venous distention (JVD), no lymphadenopathy Chest: normal thorax Respiratory: clear to auscultation, normal air movement Cardiovascular: regular rate and rhythm, no diastolic murmur, no jugular venous distention (JVD), no rub, no systolic murmur Abdominal: soft, no hepatomegaly, no mass, no splenomegaly, no tenderness Genitourinary: grossly normal external Musculoskeletal: no joint tenderness, no swelling Extremities: normal pulses, no calf tenderness, no clubbing, no cyanosis, no edema Skin: no bruising, no jaundice, no rash Neurological: alert, No focal deficit laboratory and microbiology Laboratory Tests 05/31/24 06:26 Test 05/31/24 06:26 Range/Units Serum Glucose 111 H 74-106 mg/dL Problem List 1. Small bowel obstruction Monitor, surgical consult, GI consult, NPO 2. HLD Monitor 3. Persistent atrial fibrillation Monitor, full dose Lovenox 4. Obesity Monitor 5. Hx gastric bypass Monitor 6. Benign essential HTN Monitor, antihypertensives 7. Gallstones Monitor, surgical consult, GI consult, NPO, HIDA scan Assessment/Plan Subjective Patient is awake and alert. Objective Patient was admitted for abdominal pain related to small bowel obstruction which has now resolved. Patient has had multiple bowel movements and he has been advanced to a diet and he is tolerating 100% of his diet. Patient states he felt weak from not eating for an extended duration of time so boost supplements have also been provided. Patient had a repeat HIDA scan which was negative for acute cholecystitis. Patient did sustain a fall while in the hospital which resulted in a fracture of his left hip. He is status post ORIF of his left hip and has had slow progression with recovery due to him being very weak and deconditioned. Plan Continue physical therapy. Physical therapy to work with patient twice a day if patient can tolerate. Patient to be sitting up in the chair. Patient to have boost supplements twice a day to help advance diet. Possible discharge planning in 2 days. Dietary Evaluation Review Comments: 1. advance diet as tolerated per MD 2. Consider EN/TPN if Pt remains NPO for 48 hours Expected Outcomes/Goals: 1. Pt will consume >75% estimated needs within 2-3 days Plan discussed with: Patient, Other TETO CRAMER RELIGIOUS ASSISTANT Jun 02, 2024 08:13
[2024-06-02 11:22] LABS: Basophils # (auto) 0 10 ^3/uL (0-0.2); Basophils % (auto) 0.5 % (0.0-2.0); Eosinophils # (auto) 0 10 ^3/uL (0-0.8); Eosinophils % (auto) 0.5 % (0.0-7.0); Hemoglobin 8.9 g/dL (13.5-17.5); Lymphocytes # (auto) 1.3 10 ^3/uL (0.4-5.4); Lymphocytes % (auto) 16.3 % (10.0-50.0); Mean Corpuscular Hemoglobin 29.5 pg (28.0-32.0); Mean Corpuscular Hgb Conc. 33.1 g/dL (32.0-36.0); Mean Corpuscular Volume 89.3 fL (80.0-100.0); Monocytes # (auto) 1.3 10 ^3/uL (0-1.3); Monocytes % (auto) 16.1 % (0.0-12.0); Neutrophils # (auto) 5.3 10 ^3/uL (1.6-8.6); Neutrophils % (auto) 66.6 % (37.0-80.0); Nucleated Red Blood Cells % 0.3 %; Platelet Count (auto) 326 10^3/uL (140-450); Red Blood Cells 3.03 10^6/uL (4.5-5.90); Red Cell Distribution Width 15.7 % (11.8-14.3)
[2024-06-02 11:35] LABS: Chloride 92 mmol/L (98-107); Potassium 3.2 mmol/L (3.5-5.1); Sodium 131 mmol/L (136-145)
[2024-06-02 11:36] LABS: Anion Gap 8 (5-15); Carbon Dioxide 31 mmol/L (20-31)
[2024-06-02 11:37] LABS: Calcium 9.5 mg/dL (8.7-10.4)
[2024-06-02 11:41] LABS: BUN/Creatinine Ratio 23.2 (10.0-20.0); Blood Urea Nitrogen 19 mg/dL (9-23); Glucose 119 mg/dL (74-106)
[2024-06-02 11:42] LABS: Magnesium 1.8 mg/dL (1.6-2.6)
[2024-06-02] MEDS ORDERED: HYDROcodone-ACET 5/325MG TAB PO PRN (14:30)
[2024-06-02] MEDS: MORPHINE SULFATE 4 MG/ML SYR/VIAL IV PRN (15:28)
[2024-06-02] MEDS: POTASSIUM CHL 20 Meq TABLET PO ONE (17:17)
[2024-06-03] VITALS (8 sets, daily range): BP systolic 102–111; BP diastolic 57–67; PULSE 80–108; RESP 15–19; TEMP 97.9–98.9; O2SAT 94–97
--- NOTE | 2024-06-03 07:44 | DVHPN2 ---
Progress Note - Dictate Date Seen: Jun 03, 2024 Medical Necessity Reason Pt with a Central, PICC or Fol: No vital signs Vital Sign Date Time Temp Pulse Resp B/P (MAP) Pulse Ox O2 Delivery O2 Flow Rate FiO2 06/03/24 05:00 97.9 108 18 109/67 (81) 97 97.9 06/02/24 20:00 Nasal Cannula* 2 28 Total Intake and Output 06/02/24 06/02/24 06/03/24 15:00 23:00 07:00 Intake Total 1000 ml 2400 ml Output Total 600 ml Balance 1000 ml 1800 ml medications Current Medications Medications Dose Ordered Sig/Jason Route Start Time Stop Time Status Last Admin Dose Admin Sodium Chloride 1,000 ml @ 75 mls/hr [id number] IV 05/22/24 15:00 06/01/24 17:36 75 MLS/HR Ondansetron HCl 4 mg Q4HP PRN IV 05/22/24 15:00 06/03/24 03:24 4 MG Acetaminophen 650 mg Q6HP PRN PO 05/22/24 15:00 05/29/24 21:55 650 MG Allopurinol 100 mg DAILY PO 05/23/24 10:00 06/02/24 09:13 100 MG Citalopram Hydrobromide 20 mg DAILY PO 05/23/24 10:00 06/02/24 09:13 20 MG Lisinopril 10 mg BID PO 05/22/24 22:00 06/02/24 09:14 10 MG Pantoprazole Sodium 40 mg DAILY PO 05/23/24 10:00 06/02/24 09:13 40 MG Hydralazine HCl 10 mg Q6HP PRN IV 05/23/24 05:00 05/24/24 01:34 10 MG Prochlorperazine Edisylate 10 mg Q6HP PRN IV 05/23/24 12:00 05/30/24 05:11 10 MG Atorvastatin Calcium 20 mg DAILY PO 05/24/24 10:00 06/02/24 09:13 20 MG Metoprolol Tartrate 12.5 mg BID PO 05/23/24 22:00 06/02/24 09:12 12.5 MG Nortriptyline HCl 50 mg HS PO 05/23/24 22:00 06/01/24 22:02 50 MG Tamsulosin HCl 0.4 mg QPM PO 05/23/24 18:00 06/02/24 17:18 0.4 MG Enteral Nutritional Formula 27.5 gm BIDWM PO 05/27/24 18:00 05/31/24 10:54 27.5 GM Enoxaparin Sodium 80 mg Q12HR SC 05/27/24 22:00 06/02/24 21:38 80 MG Diltiazem HCl 10 mg Q6HR IV 05/29/24 00:00 06/03/24 06:03 10 MG Enteral Nutritional Formula 240 ml TIDWM PO 06/01/24 18:00 06/02/24 18:15 240 ML Morphine Sulfate 4 mg Q6HPRN PRN IV 06/02/24 14:30 06/03/24 03:25 4 MG Acetaminophen/ Hydrocodone Bitart 1 tab Q4HPRN PRN PO 06/02/24 14:30 laboratory and microbiology Laboratory Tests 06/02/24 10:50 Test 06/02/24 10:50 Range/Units Serum Glucose 119 H 74-106 mg/dL Assessment/Plan Had mechanical fall and found to have hip fracture. S/p ORIF Patient is a 74-year-old gentleman who presented on May 22, 2024 for epigastric pain. It seems that he ate sandwich in this was followed by repeated abdominal pain and vomiting. He has been admitted with small-bowel obstruction. He also was found to have gallstones and gastric outlet obstruction. He has been seen by surgery and GI. He has been having NG tube. Patient does have history of paroxysmal AFib and is on Eliquis as outpatient. On 05/24 2024, the patient was found to have tachyarrhythmia and cardiology was involved for its evaluation and management. Telemetry revealed tachyarrhythmia in the rate of 150s. Tele was in favor of SVT. Patient was attached to the monitor and 6 mg of adenosine was given which resulted in breaking of the tachyarrhythmia inpatient been back to sinus rhythm. As per patient, he usually follows with Cardiology in [facility]. As per patient, he did have angiogram (cardiac catheterization some years ago and was told that it was normal findings). Lying flat in bed and not in acute distress. No JVD. Mucosa is pink and wet. No carotid bruit. No goiter. Lungs are clear to auscultation. At the time of evaluation the patient started to be in tachyarrhythmia and in palpitation. Later, heart rate decreased. No thrill/gallop. Abdomen is soft. Extremities do not reveal edema Past medical history includes atrial fibrillation (on Eliquis as outpatient), DJD, heart failure (diastolic), COPD, hypertension, hyperlipidemia, reported diabetes mellitus, obesity, old history of tonsillectomy and gastric bypass surgery. He is known to have kidney stones. Echocardiogram of January 2020 revealed ejection fraction of 60% and biatrial enlargement Creatinine: 1.0 - 1.02 - 1.12 - 1.24 - 1.12 - 1.07 - 0.96 - 0.82 - 0.79 - 0.95 - 0.82 Potassium: 4.3 - 4.4 - 4.9 - 3.7 - 3.7 - 3.5 - 3.8 - 3.3 - 3.2 - 3.6 - 3.2 Troponin (high sensitive): 19 - 11 TSH: 3.28 CT of the abdomen and pelvis revealed: IMPRESSION: 1. Cholelithiasis with the gallbladder distended. 2. Postop changes to the stomach with a fluid-filled distended stomach and dilated fluid-filled small bowel findings suggest small bowel obstruction. 3. Multiple bilateral nonobstructing renal calculi. 4. Prosthesis in the right hip. Chest x-ray revealed: Frontal chest radiograph demonstrates no acute osseous or superficial soft tissue abnormalities. Enteric tube visualized overlying the plane of the stomach. The trachea is midline. The cardiac silhouette and mediastinum are within normal limits. No pneumothorax, pleural effusions, or consolidations. Partially visualized gaseous distended loops of bowel. HIDA scan reported: IMPRESSION: 1. Findings may reflect chronic cholecystitis, cannot exclude acute cholecystitis due to lack of 30-60 minute images. KUB revealed: IMPRESSION: Findings concerning for small bowel obstruction versus ileus. Repeat KUB revealed: FINDINGS/IMPRESSION: Dilated loops of small bowel with gas and stool visualized in the colon. Findings appear improved compared to prior exam. Repeat KUB revealed: IMPRESSION: 1. There are air-filled dilated small bowel loops. Air and stool is seen within the colon. The findings appear mildly improved comparison to the prior study. The findings fairly stable and May relate to an ileus.. Clinical correlation and continued follow-up is recommended Repeat KUB revealed: Impression: 1. Nonobstructive bowel gas pattern. Gallbladder ultrasound reported: FINDINGS: Examination is limited. The gallbladder appears distended. The gallbladder wall measures 2 mm in thickness, within normal limits. Possible sludge in the gallbladder. Negative reported sonographic valladares's sign. The common bile duct measures 6 mm in diameter, within normal limits. The liver measures at the upper limits of normal in size, at 16.4 cm in craniocaudal dimension. Heterogeneous echotexture of the liver. The pancreas is obscured by bowel gas. The right kidney measures 9.6 cm. There is no hydronephrosis. Limited evaluation of the right kidney. Echogenic focus, possible renal calculus at the midpole measuring 1.4 cm. The patient does have renal calculi on recent CT exam. IMPRESSION: 1. Limited examination as described above. Possible gallbladder sludge and distended gallbladder. No sonographic evidence of acute cholecystitis. 2. Additional nonacute findings as described above. HIDA scan revealed: Impression: 1. Unremarkable hepatobiliary study without evidence of acute cholecystitis. Left Hip Xry: FINDINGS/IMPRESSION: There is a displaced and impacted left intertrochanteric fracture. Patient is status post right hip arthroplasty. EKG revealed SVT Tele revealed SVT which later transitioned into sinus rhythm Echocardiogram revealed: Technically limited study secondary to poor acoustic windows. Left ventricle: Mild concentric left ventricular hypertrophy was seen. LVEF was 55-60%. Right ventricle was normal size with normal systolic function. Both atria were mildly dilated. Aortic valve was not well visualized. Aortic sclerosis with no stenosis was observed. [id number] aortic insufficiency was observed. Mild mitral/tricuspid regurgitation was seen. Tricuspid valve was not well visualized. Right ventricular systolic pressure was assessed around 25 mm Hg. There was no pericardial effusion. Ascending aorta was 4.5 cm. Patient is a 74-year-old gentleman who presented with abdominal pain and is being managed for small bowel obstruction. He does have history of paroxysmal AFib. Has not been taking his medications regularly and this was followed with tachyarrhythmia. Tachyarrhythmia was in favor of SVT. SVT responded to adenosine Small-bowel obstruction Obesity History of gastric bypass Paroxysmal AFib SVT Status post adenosine management Diabetes mellitus Obesity, morbid Gallstone Renal stone Cardiac suggestion for management: For now, manage on telemetry Follow-up electrolytes and kidney function tests and correct abnormalities Keep potassium above 4 and magnesium above 2 Continue Cardizem (change it to oral) Continue metoprolol tartrate Evaluation and management of gallstones/gastric outlet obstruction as per primary team/GI/surgery Long-term continuation of anticoagulation is suggested (for now patient on Lovenox). Further evaluation and management depends on the above and clinical course A total of 55 minutes was spent reviewing the patient record, examining the patient, making a diagnostic and therapeutic plan, discussing this plan with medical personnel, following up on diagnostic studies and following the patient for clinical stability excluding any and all procedures. At least 50% of this time was spent in direct, [id number] contact. Thank you for allowing me to participate in this patient's care. Further recommendations will depend on patient's clinical course. Please do not hesitate to contact me if you have any questions or concerns. This medical document was created using electronic medical record system with [employer] computerized dictation system. Although this document has been carefully reviewed, there may still be some phonetic and typographical errors. These areas are purely typographical due to the imperfection of the software programs, and do not reflect any compromise in the patient's medical care. Dietary Evaluation Review Comments: 1. advance diet as tolerated per MD 2. Consider EN/TPN if Pt remains NPO for 48 hours Expected Outcomes/Goals: 1. Pt will consume >75% estimated needs within 2-3 days Plan discussed with: Other (nurse) BROOKS PRITCHARD MD Jun 03, 2024 07:44
--- NOTE | 2024-06-03 12:01 | DVHPN2 ---
Progress Note - Dictate Date Seen: Jun 03, 2024 Medical Necessity Reason Pt with a Central, PICC or Fol: No vital signs Vital Sign Date Time Temp Pulse Resp B/P (MAP) Pulse Ox O2 Delivery O2 Flow Rate FiO2 06/03/24 11:05 103 18 112/46 06/03/24 08:20 94 Nasal Cannula* 3 32 06/03/24 05:00 97.9 97.9 Total Intake and Output 06/02/24 06/02/24 06/03/24 15:00 23:00 07:00 Intake Total 1000 ml 2400 ml Output Total 600 ml Balance 1000 ml 1800 ml medications Current Medications Medications Dose Ordered Sig/Jason Route Start Time Stop Time Status Last Admin Dose Admin Sodium Chloride 1,000 ml @ 75 mls/hr [id number] IV 05/22/24 15:00 06/01/24 17:36 75 MLS/HR Ondansetron HCl 4 mg Q4HP PRN IV 05/22/24 15:00 06/03/24 03:24 4 MG Acetaminophen 650 mg Q6HP PRN PO 05/22/24 15:00 05/29/24 21:55 650 MG Allopurinol 100 mg DAILY PO 05/23/24 10:00 06/03/24 09:22 100 MG Citalopram Hydrobromide 20 mg DAILY PO 05/23/24 10:00 06/03/24 09:22 20 MG Lisinopril 10 mg BID PO 05/22/24 22:00 06/03/24 09:21 10 MG Pantoprazole Sodium 40 mg DAILY PO 05/23/24 10:00 06/03/24 09:22 40 MG Hydralazine HCl 10 mg Q6HP PRN IV 05/23/24 05:00 05/24/24 01:34 10 MG Prochlorperazine Edisylate 10 mg Q6HP PRN IV 05/23/24 12:00 05/30/24 05:11 10 MG Atorvastatin Calcium 20 mg DAILY PO 05/24/24 10:00 06/03/24 09:22 20 MG Metoprolol Tartrate 12.5 mg BID PO 05/23/24 22:00 06/03/24 09:22 12.5 MG Nortriptyline HCl 50 mg HS PO 05/23/24 22:00 06/01/24 22:02 50 MG Tamsulosin HCl 0.4 mg QPM PO 05/23/24 18:00 06/02/24 17:18 0.4 MG Enteral Nutritional Formula 27.5 gm BIDWM PO 05/27/24 18:00 05/31/24 10:54 27.5 GM Enoxaparin Sodium 80 mg Q12HR SC 05/27/24 22:00 06/03/24 09:20 80 MG Enteral Nutritional Formula 240 ml TIDWM PO 06/01/24 18:00 06/03/24 08:20 240 ML Morphine Sulfate 4 mg Q6HPRN PRN IV 06/02/24 14:30 06/03/24 09:21 4 MG Acetaminophen/ Hydrocodone Bitart 1 tab Q4HPRN PRN PO 06/02/24 14:30 Diltiazem HCl 30 mg Q6HR PO 06/03/24 12:00 objective General Appearance: alert, no distress HEENT: EOMI, PERRLA, normal external inspect of ears, no icterus, no nasal drainage Neck: no carotid bruit, no jugular venous distention (JVD), no lymphadenopathy Chest: normal thorax Respiratory: clear to auscultation, normal air movement Cardiovascular: regular rate and rhythm, no diastolic murmur, no jugular venous distention (JVD), no rub, no systolic murmur Abdominal: soft, no hepatomegaly, no mass, no splenomegaly, no tenderness Genitourinary: grossly normal external Musculoskeletal: no joint tenderness, no swelling Extremities: normal pulses, no calf tenderness, no clubbing, no cyanosis, no edema Skin: no bruising, no jaundice, no rash Neurological: alert, No focal deficit laboratory and microbiology Laboratory Tests 06/02/24 10:50 Test 06/02/24 10:50 Range/Units Serum Glucose 119 H 74-106 mg/dL Problem List 1. Small bowel obstruction Monitor, surgical consult, GI consult, NPO 2. HLD Monitor 3. Persistent atrial fibrillation Monitor, full dose Lovenox 4. Obesity Monitor 5. Hx gastric bypass Monitor 6. Benign essential HTN Monitor, antihypertensives 7. Gallstones Monitor, surgical consult, GI consult, NPO, HIDA scan Assessment/Plan Subjective Patient is awake and alert. Objective Patient had a large amount of emesis today. KUB has been ordered and results are currently pending. He was started on a diet this morning. Patient states he is very weak and has not been able to ambulate. Patient is now agreeable to SNF for rehab. I did speak with Alia from [facility] and they will agree for patient to go to rehab facility. Patient did have some urinary retention reported tonight. Plan: Repeat KUB. Straight cath x1. Patient to continue using incentive spirometer. Dietary Evaluation Review Comments: 1. advance diet as tolerated per MD 2. Consider EN/TPN if Pt remains NPO for 48 hours Expected Outcomes/Goals: 1. Pt will consume >75% estimated needs within 2-3 days Plan discussed with: Patient, Other [employer] Jun 03, 2024 12:01
[2024-06-03] MEDS: dilTIAZem HCL 60 MG TAB PO SCH (12:23)
--- NOTE | 2024-06-03 12:42 | DVHPN2 ---
Progress Note Date Seen: Jun 03, 2024 Medical Necessity Reason Pt with a Central, PICC or Fol: No Objective vital signs Vital Sign Date Time Temp Pulse Resp B/P (MAP) Pulse Ox O2 Delivery O2 Flow Rate FiO2 06/03/24 12:23 103 112/42 06/03/24 11:05 18 06/03/24 08:20 94 Nasal Cannula* 3 32 06/03/24 05:00 97.9 97.9 Total Intake and Output 06/02/24 06/02/24 06/03/24 15:00 23:00 07:00 Intake Total 1000 ml 2400 ml Output Total 600 ml Balance 1000 ml 1800 ml medications Current Medications Medications Dose Ordered Sig/Jason Route Start Time Stop Time Status Last Admin Dose Admin Sodium Chloride 1,000 ml @ 75 mls/hr [id number] IV 05/22/24 15:00 06/01/24 17:36 75 MLS/HR Ondansetron HCl 4 mg Q4HP PRN IV 05/22/24 15:00 06/03/24 03:24 4 MG Acetaminophen 650 mg Q6HP PRN PO 05/22/24 15:00 05/29/24 21:55 650 MG Allopurinol 100 mg DAILY PO 05/23/24 10:00 06/03/24 09:22 100 MG Citalopram Hydrobromide 20 mg DAILY PO 05/23/24 10:00 06/03/24 09:22 20 MG Lisinopril 10 mg BID PO 05/22/24 22:00 06/03/24 09:21 10 MG Pantoprazole Sodium 40 mg DAILY PO 05/23/24 10:00 06/03/24 09:22 40 MG Hydralazine HCl 10 mg Q6HP PRN IV 05/23/24 05:00 05/24/24 01:34 10 MG Prochlorperazine Edisylate 10 mg Q6HP PRN IV 05/23/24 12:00 05/30/24 05:11 10 MG Atorvastatin Calcium 20 mg DAILY PO 05/24/24 10:00 06/03/24 09:22 20 MG Nortriptyline HCl 50 mg HS PO 05/23/24 22:00 06/01/24 22:02 50 MG Tamsulosin HCl 0.4 mg QPM PO 05/23/24 18:00 06/02/24 17:18 0.4 MG Enteral Nutritional Formula 27.5 gm BIDWM PO 05/27/24 18:00 05/31/24 10:54 27.5 GM Enoxaparin Sodium 80 mg Q12HR SC 05/27/24 22:00 06/03/24 09:20 80 MG Enteral Nutritional Formula 240 ml TIDWM PO 06/01/24 18:00 06/03/24 12:23 240 ML Morphine Sulfate 4 mg Q6HPRN PRN IV 06/02/24 14:30 06/03/24 09:21 4 MG Acetaminophen/ Hydrocodone Bitart 1 tab Q4HPRN PRN PO 06/02/24 14:30 Diltiazem HCl 30 mg Q6HR PO 06/03/24 12:00 06/03/24 12:23 30 MG Docusate Calcium 240 mg DAILY PO 06/03/24 12:33 Metoprolol Tartrate 10 mg BID PO 06/03/24 22:00 UNV Sennosides 8.6 mg DAILYP PO 06/03/24 12:33 Duloxetine HCl 60 mg DAILY PO 06/03/24 12:34 Metoprolol Tartrate 25 mg BID PO 06/03/24 22:00 laboratory and microbiology Laboratory Tests 06/02/24 10:50 Test 06/02/24 10:50 Range/Units Serum Glucose 119 H 74-106 mg/dL Problem List/Assessment/Plan Problem List/Assessment/Plan AFEBRILE VSS ABD SOFT NON TENDER N/V LESS BM + FLATUS + SBO RESOLVING SONAM SOFT DIET R/O GASTROPARESIS F/UP GI OUTPT FOR POSSIBLE EGD Plan discussed with: Patient Dietary Evaluation Review Comments: 1. advance diet as tolerated per MD 2. Consider EN/TPN if Pt remains NPO for 48 hours Expected Outcomes/Goals: 1. Pt will consume >75% estimated needs within 2-3 days MARTHA ALVARES MD Jun 03, 2024 12:42
--- NOTE | 2024-06-03 13:45 | DVH ---
Date: 06/03/2024 12:47 PM Examination: XY KUB ABDOMEN SINGLE VIEW History: multiple emesis Comparison: XY KUB ABDOMEN SINGLE VIEW on DOS: 05/29/24, XY KUB ABDOMEN SINGLE VIEW on DOS: 05/28/24, X Y KUB ABDOMEN SINGLE VIEW on DOS: 05/25/24, XY KUB ABDOMEN SINGLE VIEW on DOS: 05/24/24 TECHNIQUE: Frontal views of the abdomen was obtained. FINDINGS: Significantly dilated loop of small bowel concerning for small bowel obstruction. The lung bases are collimated from field of view. No acute osseous abnormality identified. IMPRESSION: Significantly dilated loop of small bowel concerning for small bowel obstruction.
[2024-06-03] MEDS: DULoxetine HCL 30 MG CAP PO SCH (13:52)
[2024-06-03] MEDS: SENNA 8.6 MG TAB PO SCH (13:52)
[2024-06-03] MEDS: DOCUSATE CALCIUM 240 MG CAP PO SCH (19:44)
[2024-06-03] MEDS ORDERED: METOPROLOL TARTRATE 25 MG TAB PO SCH (22:00)
[2024-06-03] MEDS: METOPROLOL TARTRATE 25 MG TAB PO SCH (22:43)
[2024-06-04] VITALS (35 sets, daily range): BP systolic 72–123; BP diastolic 27–65; PULSE 62–108; RESP 15–29; TEMP 96.4–98.8; O2SAT 67–100
--- NOTE | 2024-06-04 07:00 | DVHPN2 ---
Progress Note - Dictate Date Seen: Jun 04, 2024 Medical Necessity Reason Pt with a Central, PICC or Fol: No vital signs Vital Sign Date Time Temp Pulse Resp B/P (MAP) Pulse Ox O2 Delivery O2 Flow Rate FiO2 06/04/24 05:29 98.8 92 16 112/60 (77) 98 98.8 06/03/24 20:00 Nasal Cannula* 3 32 Total Intake and Output 06/03/24 06/03/24 06/04/24 15:00 23:00 07:00 Intake Total 3000 ml 1250 ml Output Total 1300 ml Balance 3000 ml -50 ml medications Current Medications Medications Dose Ordered Sig/Jason Route Start Time Stop Time Status Last Admin Dose Admin Sodium Chloride 1,000 ml @ 75 mls/hr [id number] IV 05/22/24 15:00 06/01/24 17:36 75 MLS/HR Ondansetron HCl 4 mg Q4HP PRN IV 05/22/24 15:00 06/04/24 00:53 4 MG Acetaminophen 650 mg Q6HP PRN PO 05/22/24 15:00 05/29/24 21:55 650 MG Allopurinol 100 mg DAILY PO 05/23/24 10:00 06/03/24 09:22 100 MG Citalopram Hydrobromide 20 mg DAILY PO 05/23/24 10:00 06/03/24 09:22 20 MG Lisinopril 10 mg BID PO 05/22/24 22:00 06/03/24 09:21 10 MG Pantoprazole Sodium 40 mg DAILY PO 05/23/24 10:00 06/03/24 09:22 40 MG Hydralazine HCl 10 mg Q6HP PRN IV 05/23/24 05:00 05/24/24 01:34 10 MG Prochlorperazine Edisylate 10 mg Q6HP PRN IV 05/23/24 12:00 05/30/24 05:11 10 MG Atorvastatin Calcium 20 mg DAILY PO 05/24/24 10:00 06/03/24 09:22 20 MG Nortriptyline HCl 50 mg HS PO 05/23/24 22:00 06/03/24 22:42 50 MG Tamsulosin HCl 0.4 mg QPM PO 05/23/24 18:00 06/03/24 17:52 0.4 MG Enteral Nutritional Formula 27.5 gm BIDWM PO 05/27/24 18:00 05/31/24 10:54 27.5 GM Enoxaparin Sodium 80 mg Q12HR SC 05/27/24 22:00 06/03/24 22:43 80 MG Enteral Nutritional Formula 240 ml TIDWM PO 06/01/24 18:00 06/03/24 18:30 240 ML Morphine Sulfate 4 mg Q6HPRN PRN IV 06/02/24 14:30 06/03/24 17:56 4 MG Acetaminophen/ Hydrocodone Bitart 1 tab Q4HPRN PRN PO 06/02/24 14:30 Diltiazem HCl 30 mg Q6HR PO 06/03/24 12:00 06/04/24 00:07 30 MG Docusate Calcium 240 mg DAILY PO 06/03/24 12:33 06/03/24 19:44 240 MG Metoprolol Tartrate 10 mg BID PO 06/03/24 22:00 UNV Sennosides 8.6 mg DAILYP PO 06/03/24 12:33 06/03/24 13:52 8.6 MG Duloxetine HCl 60 mg DAILY PO 06/03/24 12:34 06/03/24 13:52 60 MG Metoprolol Tartrate 25 mg BID PO 06/03/24 22:00 06/03/24 22:43 25 MG laboratory and microbiology Laboratory Tests 06/02/24 10:50 Test 06/02/24 10:50 Range/Units Serum Glucose 119 H 74-106 mg/dL Assessment/Plan Had mechanical fall and found to have hip fracture. S/p ORIF Patient is a 74-year-old gentleman who presented on May 22, 2024 for epigastric pain. It seems that he ate sandwich in this was followed by repeated abdominal pain and vomiting. He has been admitted with small-bowel obstruction. He also was found to have gallstones and gastric outlet obstruction. He has been seen by surgery and GI. He has been having NG tube. Patient does have history of paroxysmal AFib and is on Eliquis as outpatient. On 05/24 2024, the patient was found to have tachyarrhythmia and cardiology was involved for its evaluation and management. Telemetry revealed tachyarrhythmia in the rate of 150s. Tele was in favor of SVT. Patient was attached to the monitor and 6 mg of adenosine was given which resulted in breaking of the tachyarrhythmia inpatient been back to sinus rhythm. As per patient, he usually follows with Cardiology in [facility]. As per patient, he did have angiogram (cardiac catheterization some years ago and was told that it was normal findings). Lying flat in bed and not in acute distress. No JVD. Mucosa is pink and wet. No carotid bruit. No goiter. Lungs are clear to auscultation. At the time of evaluation the patient started to be in tachyarrhythmia and in palpitation. Later, heart rate decreased. No thrill/gallop. Abdomen is soft. Extremities do not reveal edema Past medical history includes atrial fibrillation (on Eliquis as outpatient), DJD, heart failure (diastolic), COPD, hypertension, hyperlipidemia, reported diabetes mellitus, obesity, old history of tonsillectomy and gastric bypass surgery. He is known to have kidney stones. Echocardiogram of January 2020 revealed ejection fraction of 60% and biatrial enlargement Troponin (high sensitive): 19 - 11 TSH: 3.28 CT of the abdomen and pelvis revealed: IMPRESSION: 1. Cholelithiasis with the gallbladder distended. 2. Postop changes to the stomach with a fluid-filled distended stomach and dilated fluid-filled small bowel findings suggest small bowel obstruction. 3. Multiple bilateral nonobstructing renal calculi. 4. Prosthesis in the right hip. Chest x-ray revealed: Frontal chest radiograph demonstrates no acute osseous or superficial soft tissue abnormalities. Enteric tube visualized overlying the plane of the stomach. The trachea is midline. The cardiac silhouette and mediastinum are within normal limits. No pneumothorax, pleural effusions, or consolidations. Partially visualized gaseous distended loops of bowel. HIDA scan reported: IMPRESSION: 1. Findings may reflect chronic cholecystitis, cannot exclude acute cholecystitis due to lack of 30-60 minute images. KUB revealed: IMPRESSION: Findings concerning for small bowel obstruction versus ileus. Repeat KUB revealed: FINDINGS/IMPRESSION: Dilated loops of small bowel with gas and stool visualized in the colon. Findings appear improved compared to prior exam. Repeat KUB revealed: IMPRESSION: 1. There are air-filled dilated small bowel loops. Air and stool is seen within the colon. The findings appear mildly improved comparison to the prior study. The findings fairly stable and May relate to an ileus.. Clinical correlation and continued follow-up is recommended Repeat KUB revealed: Impression: 1. Nonobstructive bowel gas pattern. Gallbladder ultrasound reported: FINDINGS: Examination is limited. The gallbladder appears distended. The gallbladder wall measures 2 mm in thickness, within normal limits. Possible sludge in the gallbladder. Negative reported sonographic valladares's sign. The common bile duct measures 6 mm in diameter, within normal limits. The liver measures at the upper limits of normal in size, at 16.4 cm in craniocaudal dimension. Heterogeneous echotexture of the liver. The pancreas is obscured by bowel gas. The right kidney measures 9.6 cm. There is no hydronephrosis. Limited evaluation of the right kidney. Echogenic focus, possible renal calculus at the midpole measuring 1.4 cm. The patient does have renal calculi on recent CT exam. IMPRESSION: 1. Limited examination as described above. Possible gallbladder sludge and distended gallbladder. No sonographic evidence of acute cholecystitis. 2. Additional nonacute findings as described above. HIDA scan revealed: Impression: 1. Unremarkable hepatobiliary study without evidence of acute cholecystitis. Left Hip Xry: FINDINGS/IMPRESSION: There is a displaced and impacted left intertrochanteric fracture. Patient is status post right hip arthroplasty. EKG revealed SVT Tele revealed SVT which later transitioned into sinus rhythm Echocardiogram revealed: Technically limited study secondary to poor acoustic windows. Left ventricle: Mild concentric left ventricular hypertrophy was seen. LVEF was 55-60%. Right ventricle was normal size with normal systolic function. Both atria were mildly dilated. Aortic valve was not well visualized. Aortic sclerosis with no stenosis was observed. [id number] aortic insufficiency was observed. Mild mitral/tricuspid regurgitation was seen. Tricuspid valve was not well visualized. Right ventricular systolic pressure was assessed around 25 mm Hg. There was no pericardial effusion. Ascending aorta was 4.5 cm. Patient is a 74-year-old gentleman who presented with abdominal pain and is being managed for small bowel obstruction. He does have history of paroxysmal AFib. Has not been taking his medications regularly and this was followed with tachyarrhythmia. Tachyarrhythmia was in favor of SVT. SVT responded to adenosine Small-bowel obstruction Obesity History of gastric bypass Paroxysmal AFib SVT Status post adenosine management Diabetes mellitus Obesity, morbid Gallstone Renal stone Cardiac suggestion for management: For now, manage on telemetry Follow-up electrolytes and kidney function tests and correct abnormalities Keep potassium above 4 and magnesium above 2 Continue Cardizem Continue metoprolol tartrate Evaluation and management of gallstones/gastric outlet obstruction as per primary team/GI/surgery Long-term continuation of anticoagulation is suggested (for now patient on Lovenox). Further evaluation and management depends on the above and clinical course A total of 55 minutes was spent reviewing the patient record, examining the patient, making a diagnostic and therapeutic plan, discussing this plan with medical personnel, following up on diagnostic studies and following the patient for clinical stability excluding any and all procedures. At least 50% of this time was spent in direct, [id number] contact. Thank you for allowing me to participate in this patient's care. Further recommendations will depend on patient's clinical course. Please do not hesitate to contact me if you have any questions or concerns. This medical document was created using electronic medical record system with [employer] computerized dictation system. Although this document has been carefully reviewed, there may still be some phonetic and typographical errors. These areas are purely typographical due to the imperfection of the software programs, and do not reflect any compromise in the patient's medical care. Dietary Evaluation Review Comments: 1. advance diet as tolerated per MD 2. Consider EN/TPN if Pt remains NPO for 48 hours Expected Outcomes/Goals: 1. Pt will consume >75% estimated needs within 2-3 days Plan discussed with: Other (nurse) BROOKS PRITCHARD MD Jun 04, 2024 07:00
[2024-06-04 11:31] LABS: Chloride 86 mmol/L (98-107)
[2024-06-04 11:32] LABS: Anion Gap 10 (5-15); Calcium 9.9 mg/dL (8.7-10.4); Carbon Dioxide 30 mmol/L (20-31)
[2024-06-04 11:34] LABS: Sodium 126 mmol/L (136-145)
[2024-06-04 11:37] LABS: BUN/Creatinine Ratio 12.9 (10.0-20.0); Glucose 118 mg/dL (74-106)
[2024-06-04 11:41] LABS: Blood Urea Nitrogen 52 mg/dL (9-23)
[2024-06-04] MEDS: NOREPINEPHRINE 8 MG/250ML KIT 250 ML IV ONE (13:24)
[2024-06-04 13:45] LABS: Basophils # (auto) 0 10 ^3/uL (0-0.2); Eosinophils # (auto) 0 10 ^3/uL (0-0.8); Eosinophils % (auto) 0.1 % (0.0-7.0); Hemoglobin 10.1 g/dL (13.5-17.5); Mean Corpuscular Hgb Conc. 33.7 g/dL (32.0-36.0)
[2024-06-04 13:46] LABS: Basophils % (auto) 0.2 % (0.0-2.0); Hematocrit 29.9 % (41.0-53.0); Lymphocytes # (auto) 1.8 10 ^3/uL (0.4-5.4); Lymphocytes % (auto) 11.9 % (10.0-50.0); Mean Corpuscular Hemoglobin 29.8 pg (28.0-32.0); Mean Corpuscular Volume 88.4 fL (80.0-100.0); Monocytes # (auto) 1.3 10 ^3/uL (0-1.3); Monocytes % (auto) 8.3 % (0.0-12.0); Neutrophils # (auto) 12.3 10 ^3/uL (1.6-8.6); Neutrophils % (auto) 79.5 % (37.0-80.0); Nucleated Red Blood Cells % 0.3 %; Platelet Count (auto) 472 10^3/uL (140-450); Red Blood Cells 3.39 10^6/uL (4.5-5.90); Red Cell Distribution Width 16.2 % (11.8-14.3); White Blood Cell 15.4 10^3/uL (4.4-10.8)
[2024-06-04] MEDS: NOREPINEPHRINE 8 MG/250ML KIT 250 ML IV SCH (14:27)
--- NOTE | 2024-06-04 15:37 | DVHINCON2 ---
Date of service: Jun 04, 2024 Referring Physician Kenisha Mcnamara NP Reason for Consultation Acute kidney injury History of Present Illness Patient is 74 y/o male with PMH of AFIB, Arthritis, CHF, COPD, High Lipids, HTN, BPH and right hip surgery is admitted on 05/24 for abdominal pain associated with N/V, patient fell and broke left hip s/p ORIF of left hip on 05/27. Patient [facility] course found to have anuria, Babb inserted due to residual urine in blader and chemistry panel showed increased BUN and Creatinine, I was consulted for SYBIL. Past Medical History PAST MEDICAL HISTORY: AFIB, Arthritis, CHF, COPD, High Lipids, BPH HTN Past Surgical History Tonsillectomy Hip surgery-2013 Gastric bypass surgery Allergies: Coded Allergies: Amiodarone (Verified Allergy, Unknown, 08/11/20) Diphenhydramine (Verified Allergy, Unknown, 08/11/20) Furosemide (Verified Allergy, Unknown, 08/11/20) Ibuprofen (Verified Allergy, Unknown, 08/11/20) Naproxen (Verified Allergy, Unknown, 08/11/20) Sulfa Drugs (Verified Allergy, Unknown, 08/11/20) Home Meds Active Scripts Prednisone (Prednisone) 20 Mg Tab, 60 MG PO DAILY for 3 Days, #9 MG Prov:REILLY REYES DO 12/13/21 Apixaban Base (ELIQUIS) 5 Mg Tab, 5 MG PO BID, #60 TAB Prov:JUANY ROBERTS MD 02/07/20 Metoprolol Tartrate (Lopressor) 25 Mg Tb, 12.5 MG PO BID, #30 TAB Check blood pressure and pulse prior to dose. Hold medication if systolic blood pressure is below 120 or pulse less than 70 Prov:JUANY ROBERTS MD 02/07/20 Reported Medications Allopurinol (Allopurinol) 300 Mg Tab, 300 MG PO Q12HR for 30 Days, MG 05/23/24 Duloxetine Hcl (Cymbalta) 60 Mg Cap, 1 CAP PO DAILY, #90 CAP 3 Refills 05/23/24 Omeprazole (Gnp Omeprazole) 20 Mg Tab, 1 TAB PO DAILY, #90 TAB 1 Refill 05/23/24 Tamsulosin Hcl (Tamsulosin Hcl) 0.4 Mg Cap, 0.4 MG PO QPM for 30 Days, MG 05/23/24 Diltiazem Hcl (Diltiazem Hcl) 60 Mg Tab, 60 MG PO BID for 30 Days, MG 05/23/24 Atorvastatin Calcium (Lipitor) 20 Mg Tab, 1 TAB PO DAILY, #90 TAB 1 Refill 05/23/24 Docusate Sodium (Colace) 100 Mg Cap, 1 CAP PO BID, #30 CAP 05/23/24 Pseudoephedrine HCl ([facility] 12 Hour Nasal [place]) 120 Mg Tab, 60 MG PO BID, TAB 05/23/24 Cetirizine Hcl (Kls Aller-[place] Teresa) 10 Mg Tab, 1 TAB PO DAILY, #30 TAB 3 Refills 05/23/24 Metoprolol Tartrate (Metoprolol Tartrate) 25 Mg Tab, 10 MG PO BID for 30 Days, MG 02/21/20 Lisinopril (Lisinopril) 10 Mg Tab, 10 MG PO BID for 30 Days, MG 02/21/20 Diazepam (Diazepam) 10 Mg Tab, 30 MG PO BID, TAB 02/21/20 Hydrochlorothiazide (Hydrochlorothiazide) 12.5 Mg Cap, 12.5 MG PO DAILY for 30 Days, MG 02/21/20 Nortriptyline Hcl (PAMELOR CAPSULE) 25 Mg Cp, 50 MG PO HS, CP 03/27/14 Allopurinol (Zyloprim) 100 Mg Tab 01/24/13 Omeprazole (Sm Omeprazole) 20 Mg Tab, 40 MG PO DAILY 01/24/13 Docusate Calcium (Sb Stool Softener) 240 Mg Cap, PO 01/24/13 Nitroglycerin (Nitroglycerin) 0.4 Mg Sl, DAILYP 01/24/13 Trazodone Hcl (Trazodone Hcl) 100 Mg Tab, PO HS 01/24/13 Atorvastatin Calcium (ATORVASTATIN CALCIUM) 40 Mg Tab, PO HS 01/24/13 Senna (Sennosides) 8.6 Mg Tab, PO DAILYP 01/24/13 Potassium Chloride (K-Tabs) 10 Meq Tab, PO DAILY 01/24/13 Multiple Vitamin (Mvi Tab) 1 Tab Tb 01/13/12 [place]-3 Fatty Acids (Fish Oil) 1,000 Mg Cap 01/13/12 Epinephrine Hcl (Anaphylaxis) (Epipen) 0.3 Mg Inj 01/13/12 Citalopram Hydrobromide (Citalopram Hydrobromide) 20 Mg Tab 01/13/12 Cholecalciferol (D 400) 400 Unit Chw 01/13/12 Albuterol Sulfate (Albuterol Sulfate) 0.5 % Neb 01/13/12 Current Medications Current Medications Medications (Trade) Dose Ordered Sig/Jason Route PRN Reason Start Time Stop Time Status Last Admin Diltiazem HCl (Cardizem Injection) 10 mg Q6HR IV 06/04/24 18:00 06/04/24 19:07 DC Norepinephrine Bitartrate 250 ml @ 3.75 mls/hr Q24H IV 06/04/24 13:30 06/05/24 04:56 Metronidazole 100 ml @ 100 mls/hr Q8HR IV 06/04/24 15:00 06/05/24 05:41 Piperacillin Sod/ Tazobactam Sod 100 ml @ 25 mls/hr Q12HR IV 06/04/24 15:00 06/04/24 18:58 Enoxaparin Sodium (Lovenox) 100 mg DAILY SC 06/05/24 10:00 Sodium Chloride 1,000 ml @ 100 mls/hr Q10H IV 06/05/24 11:00 Family History: Alcoholism Cancer Cancer of colon Family history: Arthritis Family history: Asthma Family history: Blood disorder Family history: Cardiovascular disease Family history: Depression (situation) Family history: Diabetes mellitus Family history: Glaucoma Family history: Hypercholesterolemia (situation) Family history: Hypertension Family history: Thyroid disorder Malignant melanoma Malignant neoplasm of ovary Seizure disorder (situation) Stroke No Family History of: Family history: Alzheimer's disease Family history: Congenital anomaly Family history: Coronary thrombosis Family history: Diabetes in Family history: Osteoporosis Family history: Suicide (situation) Ischemic heart disease Malignant neoplasm of breast Malignant neoplasm of lung Prostate cancer Renal stone Review of Systems All 12 items ROS reviewed with the patient none is significant except what is mentioned in the HPI H&P Exam Vital Signs/I&O Vital Sign Date Time Temp Pulse Resp B/P (MAP) Pulse Ox O2 Delivery O2 Flow Rate FiO2 06/05/24 07:52 104 18 104/46 06/05/24 06:45 97 06/05/24 05:49 Nasal Cannula* 3 32 06/05/24 04:00 97.9 97.9 Intake and Output 06/04/24 06/05/24 19:00 07:00 Intake Total 531.25 ml 1205.00 ml Output Total 60 ml 600 ml Balance 471.25 ml 605.00 ml Intake Oral 0 ml 0 ml IV Total 531.25 ml 1205.00 ml Output Urine Total 500 ml Emesis 100 ml Other 60 ml Physical Exam Patient awake and alert Lung: clear b/l COR: RRR GI: NG suction : Babb;s catheter Ext: no CCE neuro: nonfocal Labs/Diagnostic Data Labs/Diagnostic Data Laboratory Tests Test 06/05/24 04:45 06/04/24 21:00 06/04/24 18:00 06/04/24 16:37 Range/Units White Blood Count 10.9 #H 4.4-10.8 10^3/uL Red Blood Count 3.16 L 4.5-5.90 10^6/uL Hemoglobin 9.7 L 13.5-17.5 g/dL Hematocrit 27.8 L 41.0-53.0 % Mean Corpuscular Volume 88.0 80.0-100.0 fL Mean Corpuscular Hemoglobin 30.6 28.0-32.0 pg Mean Corpuscular Hemoglobin Concent 34.8 32.0-36.0 g/dL Red Cell Distribution Width 16.6 H 11.8-14.3 % Platelet Count 454 H 140-450 10^3/uL Mean Platelet Volume 7.5 6.9-10.8 fL Neutrophils (%) (Auto) 80.2 H 37.0-80.0 % Lymphocytes (%) (Auto) 9.4 L 10.0-50.0 % Monocytes (%) (Auto) 10.1 0.0-12.0 % Eosinophils (%) (Auto) 0.2 0.0-7.0 % Basophils (%) (Auto) 0.1 0.0-2.0 % Neutrophils # (Auto) 8.7 H 1.6-8.6 10 ^3/uL Lymphocytes # (Auto) 1.0 0.4-5.4 10 ^3/uL Monocytes # (Auto) 1.1 0-1.3 10 ^3/uL Eosinophils # (Auto) 0 0-0.8 10 ^3/uL Basophils # (Auto) 0 0-0.2 10 ^3/uL Nucleated Red Blood Cells 0.1 % Sodium Level 127 L 136-145 mmol/L Potassium Level 3.6 3.5-5.1 mmol/L Chloride Level 87 L 98-107 mmol/L Carbon Dioxide Level 30 20-31 mmol/L Anion Gap 10 5-15 Blood Urea Nitrogen 62 #H 9-23 mg/dL Creatinine 3.62 H 0.700-1.30 mg/dL Glomerular Filtration Rate Calc 17 >90 mL/min BUN/Creatinine Ratio 17.1 10.0-20.0 Serum Glucose 126 H 74-106 mg/dL Calcium Level 9.1 8.7-10.4 mg/dL Magnesium Level 1.9 1.8 1.6-2.6 mg/dL Urine Color Yellow Yellow Urine Clarity Turbid H Clear Urine pH 5.0 5.0-9.0 Urine Specific [place] 1.019 1.001-1.035 Urine Protein 1+ H Negative Urine Ketones Trace Negative Urine Blood Trace H Negative /uL Urine Nitrite Negative Negative Urine Bilirubin 1+ Negative Urine Urobilinogen 2 H Negative mg/dL Urine Leukocyte Esterase 1+ Negative /uL Urine RBC 26 0 - 3 /hpf Urine WBC 17 0 - 3 /hpf Urine Squamous Epithelial Cells Few <5 /hpf Urine Bacteria Few H None Seen /hpf Urine Hyaline Casts Few 0 - 2 /lpf Urine Mucus Few None Seen Urine Osmolality 337 mOsm/kg Urine Creatinine 146.30 H 30.0-125.0 mg/dL Urine Protein/Creatinine Ratio 0.75 Urine Sodium 17 L 40-220 mmol/L Urine Glucose Normal Normal mg/dL Urine Total Protein 109.2 H 1-14 mg/dL Prothrombin Time 11.8 9.3-11.8 sec Prothrombin Time INR 1.12 0.9-1.15 Activated Partial Thromboplast Time 34.4 24.5-34.5 SEC Phosphorus Level 5.4 H 2.4-5.1 mg/dL Vitamin D 25-Hydroxy 35.8 30.0-100 ng/mL Parathyroid Hormone (Intact) 235.7 H 18.4-80.1 pg/mL Test 06/04/24 14:28 06/04/24 10:18 06/02/24 10:50 06/01/24 22:17 Range/Units Lactic Acid Level 1.2 0.4-2.0 mmol/L White Blood Count 15.4 #H 8.0 # 4.4-10.8 10^3/uL Red Blood Count 3.39 L 3.03 L 4.5-5.90 10^6/uL Hemoglobin 10.1 L 8.9 L 13.5-17.5 g/dL Hematocrit 29.9 #L 27.0 L 41.0-53.0 % Mean Corpuscular Volume 88.4 89.3 80.0-100.0 fL Mean Corpuscular Hemoglobin 29.8 29.5 28.0-32.0 pg Mean Corpuscular Hemoglobin Concent 33.7 33.1 32.0-36.0 g/dL Red Cell Distribution Width 16.2 H 15.7 H 11.8-14.3 % Platelet Count 472 H 326 # 140-450 10^3/uL Mean Platelet Volume 8.6 8.4 6.9-10.8 fL Neutrophils (%) (Auto) 79.5 66.6 37.0-80.0 % Lymphocytes (%) (Auto) 11.9 16.3 10.0-50.0 % Monocytes (%) (Auto) 8.3 16.1 H 0.0-12.0 % Eosinophils (%) (Auto) 0.1 0.5 0.0-7.0 % Basophils (%) (Auto) 0.2 0.5 0.0-2.0 % Neutrophils # (Auto) 12.3 H 5.3 1.6-8.6 10 ^3/uL Lymphocytes # (Auto) 1.8 1.3 0.4-5.4 10 ^3/uL Monocytes # (Auto) 1.3 1.3 0-1.3 10 ^3/uL Eosinophils # (Auto) 0 0 0-0.8 10 ^3/uL Basophils # (Auto) 0 0 0-0.2 10 ^3/uL Nucleated Red Blood Cells 0.3 0.3 % Sodium Level 126 #L 131 L 136-145 mmol/L Potassium Level 4.0 3.2 L 3.5-5.1 mmol/L Chloride Level 86 L 92 L 98-107 mmol/L Carbon Dioxide Level 30 31 20-31 mmol/L Anion Gap 10 8 5-15 Blood Urea Nitrogen 52 #H 19 9-23 mg/dL Creatinine 4.02 #H 0.82 0.700-1.30 mg/dL Glomerular Filtration Rate Calc 15 93 >90 mL/min BUN/Creatinine Ratio 12.9 23.2 H 10.0-20.0 Serum Glucose 118 H 119 H 74-106 mg/dL Calcium Level 9.9 9.5 8.7-10.4 mg/dL Magnesium Level 1.9 1.8 1.6-2.6 mg/dL POC Glucose 104 70-106 mg/dl Test 05/31/24 06:26 05/30/24 10:13 05/29/24 05:02 05/28/24 14:52 Range/Units White Blood Count 5.8 # 4.1 L 3.5 #L 4.7 # 4.4-10.8 10^3/uL Red Blood Count 2.98 L 3.10 L 3.01 L 3.16 L 4.5-5.90 10^6/uL Hemoglobin 8.9 L 9.3 L 9.1 L 9.6 #L 13.5-17.5 g/dL Hematocrit 26.6 L 28.2 L 27.0 L 28.6 #L 41.0-53.0 % Mean Corpuscular Volume 89.2 91.0 89.7 90.5 80.0-100.0 fL Mean Corpuscular Hemoglobin 29.7 30.1 30.4 30.3 28.0-32.0 pg Mean Corpuscular Hemoglobin Concent 33.3 33.1 33.9 33.5 32.0-36.0 g/dL Red Cell Distribution Width 15.9 H 15.8 H 15.6 H 15.6 H 11.8-14.3 % Platelet Count 204 145 137 L 143 140-450 10^3/uL Mean Platelet Volume 8.9 8.6 9.0 8.6 6.9-10.8 fL Neutrophils (%) (Auto) 64.0 37.0-80.0 % Lymphocytes (%) (Auto) 13.3 10.0-50.0 % Monocytes (%) (Auto) 21.4 H 0.0-12.0 % Basophils (%) (Auto) 0.1 0.0-2.0 % Neutrophils # (Auto) 2.6 1.6-8.6 10 ^3/uL Lymphocytes # (Auto) 0.5 0.4-5.4 10 ^3/uL Monocytes # (Auto) 0.9 0-1.3 10 ^3/uL Differential Total Cells Counted 100.0 100.0 100.0 100 Neutrophils % (Manual) 74 51 69 37.0-80.0 Band Neutrophils % (Manual) 0 0 1 Lymphocytes % (Manual) 13 33 14 10.0-50.0 Monocytes % (Manual) 13 H 15 H 16 H 0-12 Eosinophils % (Manual) 0 1 0 0-7 Basophils % (Manual) 0 0 0 0.0-2.0 Metamyelocytes % (manual) 0 0 0 Myelocytes % (Manual) 0 0 0 Promyelocytes % (Manual) 0 0 0 Blast Cells % (Manual) 0 0 0 Reactive Lymphocytes 0 0 0 Platelet Estimate Adequate Adequate Adequate Sodium Level 134 L 135 L 136 136 136-145 mmol/L Potassium Level 3.6 3.2 L 3.3 L 3.8 3.5-5.1 mmol/L Chloride Level 94 L 96 L 100 102 98-107 mmol/L Carbon Dioxide Level 32 H 31 28 27 20-31 mmol/L Anion Gap 8 8 8 7 5-15 Blood Urea Nitrogen 21 14 18 25 H 9-23 mg/dL Creatinine 0.95 0.79 0.82 0.96 0.700-1.30 mg/dL Glomerular Filtration Rate Calc 85 94 93 84 >90 mL/min BUN/Creatinine Ratio 22.1 H 17.7 22.0 H 26.0 H 10.0-20.0 Serum Glucose 111 H 106 132 H 131 H 74-106 mg/dL Calcium Level 9.3 9.3 9.3 9.6 8.7-10.4 mg/dL Eosinophils (%) (Auto) 1.2 0.0-7.0 % Eosinophils # (Auto) 0.1 0-0.8 10 ^3/uL Basophils # (Auto) 0 0-0.2 10 ^3/uL Nucleated Red Blood Cells 0.2 % Total Bilirubin 0.9 0.2-1.0 mg/dL Aspartate Amino Transferase (AST) 31 13-40 U/L Alanine Aminotransferase (ALT) 20 7-40 U/L Alkaline Phosphatase 81 46-116 U/L Total Protein 5.7 5.7-8.2 g/dL Albumin 3.4 3.2-4.8 g/dL Test 05/27/24 05:08 05/26/24 15:33 05/25/24 11:21 05/25/24 05:55 Range/Units White Blood Count 6.9 5.9 4.4-10.8 10^3/uL Red Blood Count 3.73 L 3.91 L 4.5-5.90 10^6/uL Hemoglobin 11.6 L 11.8 L 13.5-17.5 g/dL Hematocrit 33.6 L 35.1 L 41.0-53.0 % Mean Corpuscular Volume 90.0 89.7 80.0-100.0 fL Mean Corpuscular Hemoglobin 31.1 30.1 28.0-32.0 pg Mean Corpuscular Hemoglobin Concent 34.5 33.6 32.0-36.0 g/dL Red Cell Distribution Width 16.0 H 15.9 H 11.8-14.3 % Platelet Count 179 185 140-450 10^3/uL Mean Platelet Volume 9.0 8.4 6.9-10.8 fL Neutrophils (%) (Auto) 78.1 75.1 37.0-80.0 % Lymphocytes (%) (Auto) 6.2 L 7.8 L 10.0-50.0 % Monocytes (%) (Auto) 15.4 H 17.0 H 0.0-12.0 % Eosinophils (%) (Auto) 0.1 0.0 0.0-7.0 % Basophils (%) (Auto) 0.2 0.1 0.0-2.0 % Neutrophils # (Auto) 5.4 4.4 1.6-8.6 10 ^3/uL Lymphocytes # (Auto) 0.4 0.5 0.4-5.4 10 ^3/uL Monocytes # (Auto) 1.1 1.0 0-1.3 10 ^3/uL Eosinophils # (Auto) 0 0 0-0.8 10 ^3/uL Basophils # (Auto) 0 0 0-0.2 10 ^3/uL Nucleated Red Blood Cells 0.0 0.1 % Prothrombin Time 11.4 11.4 9.3-11.8 sec Prothrombin Time INR 1.08 1.08 0.9-1.15 Activated Partial Thromboplast Time 38.7 H 24.5-34.5 SEC Sodium Level 132 L 132 L 136-145 mmol/L Potassium Level 3.5 3.7 3.5-5.1 mmol/L Chloride Level 95 L 96 L 98-107 mmol/L Carbon Dioxide Level 29 30 20-30 mmol/L Anion Gap 8 6 5-15 Blood Urea Nitrogen 32 H 34 H 9-23 mg/dL Creatinine 1.07 1.12 0.700-1.30 mg/dL Glomerular Filtration Rate Calc 74 70 >90 mL/min BUN/Creatinine Ratio 29.9 H 30.4 H 10.0-20.0 Serum Glucose 108 H 130 H 74-106 mg/dL Calcium Level 9.5 9.4 8.7-10.4 mg/dL Total Bilirubin 1.0 0.8 0.2-1.0 mg/dL Aspartate Amino Transferase (AST) 20 19 13-40 U/L Alanine Aminotransferase (ALT) 16 16 7-40 U/L Alkaline Phosphatase 98 103 46-116 U/L Total Protein 6.0 6.1 5.7-8.2 g/dL Albumin 3.6 3.7 3.2-4.8 g/dL Hemoglobin A1c 5.2 <5.7 % A1C POC Glucose 145 H 145 H 70-106 mg/dl Test 05/25/24 05:38 05/24/24 19:57 05/24/24 17:39 05/24/24 12:24 Range/Units Sodium Level 132 L 136-145 mmol/L Potassium Level 3.7 3.5-5.1 mmol/L Chloride Level 96 L 98-107 mmol/L Carbon Dioxide Level 25 20-30 mmol/L Anion Gap 11 5-15 Blood Urea Nitrogen 28 #H 9-23 mg/dL Creatinine 1.24 0.700-1.30 mg/dL Glomerular Filtration Rate Calc 62 >90 mL/min BUN/Creatinine Ratio 22.6 H 10.0-20.0 Serum Glucose 133 H 74-106 mg/dL Calcium Level 10.1 8.7-10.4 mg/dL Phosphorus Level 2.9 2.4-5.1 mg/dL Magnesium Level 1.9 1.6-2.6 mg/dL Total Bilirubin 0.6 0.2-1.0 mg/dL Aspartate Amino Transferase (AST) 17 13-40 U/L Alanine Aminotransferase (ALT) 16 7-40 U/L Alkaline Phosphatase 133 H 46-116 U/L Total Protein 6.8 5.7-8.2 g/dL Albumin 4.1 3.2-4.8 g/dL Urine Color Yellow Yellow Urine Clarity Clear Clear Urine pH 5.5 5.0-9.0 Urine Specific [place] 1.018 1.001-1.035 Urine Protein 1+ H Negative Urine Ketones Negative Negative Urine Blood Negative Negative /uL Urine Nitrite Negative Negative Urine Bilirubin Negative Negative Urine Urobilinogen Normal Negative mg/dL Urine Leukocyte Esterase Negative Negative /uL Urine RBC 11 0 - 3 /hpf Urine WBC 1 0 - 3 /hpf Urine Squamous Epithelial Cells Few <5 /hpf Urine Bacteria None seen None Seen /hpf Urine Hyaline Casts Few 0 - 2 /lpf Urine Mucus Few None Seen Urine Glucose Normal Normal mg/dL POC Glucose 134 H 145 H 70-106 mg/dl Test 05/24/24 05:26 05/24/24 00:36 05/23/24 06:56 05/22/24 10:29 Range/Units Sodium Level 134 L 135 L 135 L 136-145 mmol/L Potassium Level 3.9 4.4 4.3 3.5-5.1 mmol/L Chloride Level 98 101 101 98-107 mmol/L Carbon Dioxide Level 24 26 26 20-30 mmol/L Anion Gap 12 8 8 5-15 Blood Urea Nitrogen 18 17 16 9-23 mg/dL Creatinine 1.12 1.02 1.00 0.700-1.30 mg/dL Glomerular Filtration Rate Calc 70 78 80 >90 mL/min BUN/Creatinine Ratio 16.1 16.7 16.0 10.0-20.0 Serum Glucose 189 H 120 H 123 H 74-106 mg/dL Calcium Level 10.2 9.9 10.4 8.7-10.4 mg/dL Phosphorus Level 3.4 2.4-5.1 mg/dL Magnesium Level 1.6 1.6-2.6 mg/dL Total Bilirubin 0.7 0.7 0.2-1.0 mg/dL Aspartate Amino Transferase (AST) 17 18 13-40 U/L Alanine Aminotransferase (ALT) 14 14 7-40 U/L Alkaline Phosphatase 144 H 136 H 46-116 U/L Troponin I High Sensitivity 11 19 </=54 ng/L Total Protein 7.5 6.5 5.7-8.2 g/dL Albumin 4.6 4.1 3.2-4.8 g/dL Triglycerides Level 84 93 < 150 mg/dL POC Glucose 164 H 70-106 mg/dl White Blood Count 6.8 8.6 4.4-10.8 10^3/uL Red Blood Count 4.28 L 4.76 4.5-5.90 10^6/uL Hemoglobin 13.3 L 14.4 13.5-17.5 g/dL Hematocrit 38.5 #L 43.1 41.0-53.0 % Mean Corpuscular Volume 90.0 90.5 80.0-100.0 fL Mean Corpuscular Hemoglobin 31.0 30.2 28.0-32.0 pg Mean Corpuscular Hemoglobin Concent 34.5 33.4 32.0-36.0 g/dL Red Cell Distribution Width 16.5 H 16.6 H 11.8-14.3 % Platelet Count 186 208 140-450 10^3/uL Mean Platelet Volume 8.5 8.1 6.9-10.8 fL Neutrophils (%) (Auto) 72.9 81.2 H 37.0-80.0 % Lymphocytes (%) (Auto) 13.3 10.5 10.0-50.0 % Monocytes (%) (Auto) 13.3 H 7.9 0.0-12.0 % Eosinophils (%) (Auto) 0.2 0.2 0.0-7.0 % Basophils (%) (Auto) 0.3 0.2 0.0-2.0 % Neutrophils # (Auto) 4.9 7.0 1.6-8.6 10 ^3/uL Lymphocytes # (Auto) 0.9 0.9 0.4-5.4 10 ^3/uL Monocytes # (Auto) 0.9 0.7 0-1.3 10 ^3/uL Eosinophils # (Auto) 0 0 0-0.8 10 ^3/uL Basophils # (Auto) 0 0 0-0.2 10 ^3/uL Nucleated Red Blood Cells 0.1 0.1 % Cholesterol Level 144 < 200 mg/dL LDL Cholesterol 80 < 100 mg/dL HDL Cholesterol 48 40-59 mg/dL Thyroid Stimulating Hormone (TSH) 3.28 0.55-4.78 uIU/mL Assessment SYBIL secondary to urinary retention, (Cr 1.0 on admission 05/22/24) Dehydration Small-bowel obstruction BPH with LUTS Septic shock Leukocytosis s/p ORIF left hip 05/27 Hypotension Chronic diastolic HF A fib Abdominal pain h/o gastric bypass REC: Closely monitor fluids and lytes Avoid nephrotoxins Babb's catheter Strict I&O's Check UA, urine lytes and kidney US Hold EDWARD inhibitors d/c allopurinol Blood cultures IV Abx IV Levophed Keep MAP > 65 mmHg Albumin 25 IVPB Will continue to follow Patient seen and examined by myself. critical care time 35 minutes. I discussed my paln of care with the patient and the primary nurse I would like to thank Kenisha for the consult, will follow Plan discussed with: Patient JON CARRIZALES MD Jun 04, 2024 15:37
--- NOTE | 2024-06-04 15:50 | DVH ---
INDICATION: Renal failure. TECHNIQUE: Multiple real-time sonographic images of the kidneys and bladder were obtained. COMPARISON: CT abdomen and pelvis 05/22/2024 FINDINGS: RIGHT kidney measures 9.9 cm in length . No hydronephrosis. Multiple small right renal calculi. LEFT kidney measures 10.1 cm in length with increased cortical echogenicity. No hydronephrosis. 1.5 x 0.5 x 1.6 cm left renal interpolar region calculus Limited evaluation of the urinary bladder due to decompression. Babb catheter is not visualized. IMPRESSION: Bilateral renal nonobstructing calculi. No hydronephrosis bilaterally. Increased echogenicity of the left kidney which may be seen with medical renal disease. The urinary bladder and Babb catheter are not visualized
[2024-06-04] MEDS: metroNIDAZOLE 500MG/100ML 100 ML IV SCH (16:12)
[2024-06-04 17:40] LABS: Magnesium 1.8 mg/dL (1.6-2.6); Phosphorus 5.4 mg/dL (2.4-5.1)
--- NOTE | 2024-06-04 17:52 | DVHPN2 ---
Progress Note - Dictate Date Seen: Jun 04, 2024 Medical Necessity Reason Pt with a Central, PICC or Fol: No vital signs Vital Sign Date Time Temp Pulse Resp B/P (MAP) Pulse Ox O2 Delivery O2 Flow Rate FiO2 06/04/24 14:40 106/42 06/04/24 11:40 96.4 96.4 06/04/24 08:48 62 18 06/04/24 07:45 92 Nasal Cannula* 3 32 Total Intake and Output 06/03/24 06/03/24 06/04/24 15:00 23:00 07:00 Intake Total 3000 ml 1250 ml Output Total 1300 ml Balance 3000 ml -50 ml medications Current Medications Medications Dose Ordered Sig/Jason Route Start Time Stop Time Status Last Admin Dose Admin Sodium Chloride 1,000 ml @ 75 mls/hr [id number] IV 05/22/24 15:00 06/04/24 09:41 75 MLS/HR Ondansetron HCl 4 mg Q4HP PRN IV 05/22/24 15:00 06/04/24 09:47 4 MG Acetaminophen 650 mg Q6HP PRN PO 05/22/24 15:00 05/29/24 21:55 650 MG Citalopram Hydrobromide 20 mg DAILY PO 05/23/24 10:00 06/03/24 09:22 20 MG Pantoprazole Sodium 40 mg DAILY PO 05/23/24 10:00 06/03/24 09:22 40 MG Hydralazine HCl 10 mg Q6HP PRN IV 05/23/24 05:00 05/24/24 01:34 10 MG Prochlorperazine Edisylate 10 mg Q6HP PRN IV 05/23/24 12:00 06/04/24 12:42 10 MG Atorvastatin Calcium 20 mg DAILY PO 05/24/24 10:00 06/03/24 09:22 20 MG Nortriptyline HCl 50 mg HS PO 05/23/24 22:00 06/03/24 22:42 50 MG Tamsulosin HCl 0.4 mg QPM PO 05/23/24 18:00 06/03/24 17:52 0.4 MG Enteral Nutritional Formula 27.5 gm BIDWM PO 05/27/24 18:00 05/31/24 10:54 27.5 GM Enteral Nutritional Formula 240 ml TIDWM PO 06/01/24 18:00 06/03/24 18:30 240 ML Morphine Sulfate 4 mg Q6HPRN PRN IV 06/02/24 14:30 06/03/24 17:56 4 MG Acetaminophen/ Hydrocodone Bitart 1 tab Q4HPRN PRN PO 06/02/24 14:30 Docusate Calcium 240 mg DAILY PO 06/03/24 12:33 06/03/24 19:44 240 MG Metoprolol Tartrate 10 mg BID PO 06/03/24 22:00 UNV Sennosides 8.6 mg DAILYP PO 06/03/24 12:33 06/03/24 13:52 8.6 MG Duloxetine HCl 60 mg DAILY PO 06/03/24 12:34 06/03/24 13:52 60 MG Metoprolol Tartrate 25 mg BID PO 06/03/24 22:00 06/03/24 22:43 25 MG Diltiazem HCl 10 mg Q6HR IV 06/04/24 18:00 Norepinephrine Bitartrate 250 ml @ 3.75 mls/hr Q24H IV 06/04/24 13:30 06/04/24 14:27 3.75 MLS/HR Metronidazole 100 ml @ 100 mls/hr Q8HR IV 06/04/24 15:00 06/04/24 16:12 100 MLS/HR Piperacillin Sod/ Tazobactam Sod 100 ml @ 25 mls/hr Q12HR IV 06/04/24 15:00 Enoxaparin Sodium 100 mg DAILY SC 06/05/24 10:00 objective General Appearance: alert, no distress HEENT: EOMI, PERRLA, normal external inspect of ears, no icterus, no nasal drainage Neck: no carotid bruit, no jugular venous distention (JVD), no lymphadenopathy Chest: normal thorax Respiratory: clear to auscultation, normal air movement Cardiovascular: regular rate and rhythm, no diastolic murmur, no jugular venous distention (JVD), no rub, no systolic murmur Abdominal: soft, no hepatomegaly, no mass, no splenomegaly, no tenderness Genitourinary: grossly normal external Musculoskeletal: no joint tenderness, no swelling Extremities: normal pulses, no calf tenderness, no clubbing, no cyanosis, no edema Skin: no bruising, no jaundice, no rash Neurological: alert, No focal deficit laboratory and microbiology Laboratory Tests 06/04/24 10:18 Test 06/04/24 10:18 Range/Units Serum Glucose 118 H 74-106 mg/dL Problem List 1. Small bowel obstruction Monitor, surgical consult, GI consult, NPO 2. HLD Monitor 3. Persistent atrial fibrillation Monitor, full dose Lovenox 4. Obesity Monitor 5. Hx gastric bypass Monitor 6. Benign essential HTN Monitor, antihypertensives 7. Gallstones Monitor, surgical consult, GI consult, NPO, HIDA scan 8. Sepsis Monitor 9. Septic Shock Monitor 10. Acute renal failure Monitor, nephrology consult Assessment/Plan Subjective Patient is awake and alert. Objective Patient feels very bad today. He has been having large amounts of emesis and frequent episodes. Imaging from last night shows small bowel obstruction. Patient blood cell count is elevated. Plan Start start antibiotics for sepsis with Flagyl and Zosyn. Start Levophed for septic shock. Transfer to ICU. Continue IV fluids. Patient is in acute renal failure. nephrology has been consulted. Patient is on IV fluids. Renal ultrasound has been ordered . Babb catheter to be placed for strict VIRI's. For small bowel obstruction NG tube will be placed to low continuous suction, no x- ray to confirm placement keep patient n.p.o. and start Clinimix for nutrition. Dietary Evaluation Review Comments: 1. advance diet as tolerated per MD 2. Consider EN/TPN if Pt remains NPO for 48 hours Expected Outcomes/Goals: 1. Pt will consume >75% estimated needs within 2-3 days Plan discussed with: Patient, Other [employer] Jun 04, 2024 17:52
[2024-06-04] MEDS ORDERED: dilTIAZem 25 MG/5 ML VIAL IV SCH (18:00)
[2024-06-04 18:55] LABS: INR 1.12 (0.9-1.15); Partial Thromboplastin Time 34.4 SEC (24.5-34.5); Prothrombin Time 11.8 sec (9.3-11.8)
[2024-06-04] MEDS: PIPERACILLIN-TAZOB 3.375GM 100 ML IV SCH (18:58)
[2024-06-04] MEDS: ALBUMIN 25% 100 ML IV ONE (21:30)
[2024-06-04 21:43] LABS: Protein, Urine 109.2 mg/dL (1-14)
[2024-06-04 21:46] LABS: Creatinine, Urine 146.3 mg/dL (30.0-125.0); Creatinine, Urine 147.47 mg/dL (30.0-125.0); Urine Protein/Creatinine Ratio 0.75
[2024-06-04 21:47] LABS: Urine Bacteria FEW /hpf (None Seen); Urine Blood TRACE /uL (Negative); Urine Clarity Turbid (Clear); Urine Color Yellow (Yellow); Urine Hyaline Cast FEW /lpf (0 - 2); Urine Mucus FEW (None Seen); Urine Protein, UAD 1+ (Negative); Urine Specific Gravity 1.019 (1.001-1.035); Urine Urobilinogen 2 mg/dL (Negative); Urine WBC 17 /hpf (0 - 3)
[2024-06-05] VITALS (98 sets, daily range): BP systolic 80–150; BP diastolic 32–70; PULSE 57–197; RESP 11–28; TEMP 97.8–98.1; O2SAT 79–100
--- NOTE | 2024-06-05 04:59 | DVHPN2 ---
Progress Note - Dictate Date Seen: Jun 05, 2024 Medical Necessity Reason Pt with a Central, PICC or Fol: No Subjective Patient seen and examined at the bedside within the [facility]. Upgraded to ICU status overnight secondary to hypotension subsequently started on Levophed infusion. Current infusion rate of 10mcg/minute. Patient remains NPO status in the setting of SBO which GI services remain following. Currently pending small bowel series as of today. Diltiazem has now been discontinued secondary to hypotension. Metoprolol tartrate currently held secondary to NPO status. Will start Metoprolol Tartrate 5mg IVP prn for rate/rhythm control during the interim. vital signs Vital Sign Date Time Temp Pulse Resp B/P (MAP) Pulse Ox O2 Delivery O2 Flow Rate FiO2 06/05/24 04:56 95/47 06/05/24 04:30 98 19 96 06/05/24 04:00 97.9 97.9 06/05/24 04:00 Nasal Cannula* 3 32 Total Intake and Output 06/04/24 06/04/24 06/05/24 15:00 23:00 07:00 Intake Total 86.25 ml 993.75 ml 468.75 ml Output Total 60 ml Balance 86.25 ml 933.75 ml 468.75 ml medications Current Medications Medications Dose Ordered Sig/Jason Route Start Time Stop Time Status Last Admin Dose Admin Sodium Chloride 1,000 ml @ 75 mls/hr [id number] IV 05/22/24 15:00 06/04/24 21:34 75 MLS/HR Ondansetron HCl 4 mg Q4HP PRN IV 05/22/24 15:00 06/05/24 03:25 4 MG Acetaminophen 650 mg Q6HP PRN PO 05/22/24 15:00 05/29/24 21:55 650 MG Citalopram Hydrobromide 20 mg DAILY PO 05/23/24 10:00 06/03/24 09:22 20 MG Pantoprazole Sodium 40 mg DAILY PO 05/23/24 10:06/03/24 09:22 40 MG Hydralazine HCl 10 mg Q6HP PRN IV 05/23/24 05:00 05/24/24 01:34 10 MG Prochlorperazine Edisylate 10 mg Q6HP PRN IV 05/23/24 12:00 06/04/24 12:42 10 MG Atorvastatin Calcium 20 mg DAILY PO 05/24/24 10:00 06/03/24 09:22 20 MG Nortriptyline HCl 50 mg HS PO 05/23/24 22:00 06/03/24 22:42 50 MG Tamsulosin HCl 0.4 mg QPM PO 05/23/24 18:00 06/03/24 17:52 0.4 MG Enteral Nutritional Formula 27.5 gm BIDWM PO 05/27/24 18:00 05/31/24 10:54 27.5 GM Enteral Nutritional Formula 240 ml TIDWM PO 06/01/24 18:00 06/03/24 18:30 240 ML Morphine Sulfate 4 mg Q6HPRN PRN IV 06/02/24 14:30 06/04/24 23:53 4 MG Acetaminophen/ Hydrocodone Bitart 1 tab Q4HPRN PRN PO 06/02/24 14:30 Docusate Calcium 240 mg DAILY PO 06/03/24 12:33 06/03/24 19:44 240 MG Metoprolol Tartrate 10 mg BID PO 06/03/24 22:00 UNV Sennosides 8.6 mg DAILYP PO 06/03/24 12:33 06/03/24 13:52 8.6 MG Duloxetine HCl 60 mg DAILY PO 06/03/24 12:34 06/03/24 13:52 60 MG Metoprolol Tartrate 25 mg BID PO 06/03/24 22:00 06/03/24 22:43 25 MG Norepinephrine Bitartrate 250 ml @ 3.75 mls/hr Q24H IV 06/04/24 13:30 06/05/24 04:56 18.75 MLS/HR Metronidazole 100 ml @ 100 mls/hr Q8HR IV 06/04/24 15:00 06/04/24 21:33 100 MLS/HR Piperacillin Sod/ Tazobactam Sod 100 ml @ 25 mls/hr Q12HR IV 06/04/24 15:00 06/04/24 18:58 25 MLS/HR Enoxaparin Sodium 100 mg DAILY SC 06/05/24 10:00 laboratory and microbiology Laboratory Tests 06/04/24 10:18 Test 06/04/24 10:18 Range/Units Serum Glucose 118 H 74-106 mg/dL Assessment/Plan Assessment/Plan Had mechanical fall and found to have hip fracture. S/p ORIF Patient is a 74-year-old gentleman who presented on May 22, 2024 for epigastric pain. It seems that he ate sandwich in this was followed by repeated abdominal pain and vomiting. He has been admitted with small-bowel obstruction. He also was found to have gallstones and gastric outlet obstruction. He has been seen by surgery and GI. He has been having NG tube. Patient does have history of paroxysmal AFib and is on Eliquis as outpatient. On 05/24 2024, the patient was found to have tachyarrhythmia and cardiology was involved for its evaluation and management. Telemetry revealed tachyarrhythmia in the rate of 150s. Tele was in favor of SVT. Patient was attached to the monitor and 6 mg of adenosine was given which resulted in breaking of the tachyarrhythmia inpatient been back to sinus rhythm. As per patient, he usually follows with Cardiology in [facility]. As per patient, he did have angiogram (cardiac catheterization some years ago and was told that it was normal findings). Lying flat in bed and not in acute distress. No JVD. Mucosa is pink and wet. No carotid bruit. No goiter. Lungs are clear to auscultation. At the time of evaluation the patient started to be in tachyarrhythmia and in palpitation. Later, heart rate decreased. No thrill/gallop. Abdomen is soft. Extremities do not reveal edema Past medical history includes atrial fibrillation (on Eliquis as outpatient), DJD, heart failure (diastolic), COPD, hypertension, hyperlipidemia, reported diabetes mellitus, obesity, old history of tonsillectomy and gastric bypass surgery. He is known to have kidney stones. Echocardiogram of January 2020 revealed ejection fraction of 60% and biatrial enlargement Troponin (high sensitive): 19 - 11 TSH: 3.28 CT of the abdomen and pelvis revealed: IMPRESSION: 1. Cholelithiasis with the gallbladder distended. 2. Postop changes to the stomach with a fluid-filled distended stomach and dilated fluid-filled small bowel findings suggest small bowel obstruction. 3. Multiple bilateral nonobstructing renal calculi. 4. Prosthesis in the right hip. Chest x-ray revealed: Frontal chest radiograph demonstrates no acute osseous or superficial soft tissue abnormalities. Enteric tube visualized overlying the plane of the stomach. The trachea is midline. The cardiac silhouette and mediastinum are within normal limits. No pneumothorax, pleural effusions, or consolidations. Partially visualized gaseous distended loops of bowel. HIDA scan reported: IMPRESSION: 1. Findings may reflect chronic cholecystitis, cannot exclude acute cholecystitis due to lack of 30-60 minute images. KUB revealed: IMPRESSION: Findings concerning for small bowel obstruction versus ileus. Repeat KUB revealed: FINDINGS/IMPRESSION: Dilated loops of small bowel with gas and stool visualized in the colon. Findings appear improved compared to prior exam. Repeat KUB revealed: IMPRESSION: 1. There are air-filled dilated small bowel loops. Air and stool is seen within the colon. The findings appear mildly improved comparison to the prior study. The findings fairly stable and May relate to an ileus.. Clinical correlation and continued follow-up is recommended Repeat KUB revealed: Impression: 1. Nonobstructive bowel gas pattern. Gallbladder ultrasound reported: FINDINGS: Examination is limited. The gallbladder appears distended. The gallbladder wall measures 2 mm in thickness, within normal limits. Possible sludge in the gallbladder. Negative reported sonographic valladares's sign. The common bile duct measures 6 mm in diameter, within normal limits. The liver measures at the upper limits of normal in size, at 16.4 cm in craniocaudal dimension. Heterogeneous echotexture of the liver. The pancreas is obscured by bowel gas. The right kidney measures 9.6 cm. There is no hydronephrosis. Limited evaluation of the right kidney. Echogenic focus, possible renal calculus at the midpole measuring 1.4 cm. The patient does have renal calculi on recent CT exam. IMPRESSION: 1. Limited examination as described above. Possible gallbladder sludge and distended gallbladder. No sonographic evidence of acute cholecystitis. 2. Additional nonacute findings as described above. HIDA scan revealed: Impression: 1. Unremarkable hepatobiliary study without evidence of acute cholecystitis. Left Hip Xry: FINDINGS/IMPRESSION: There is a displaced and impacted left intertrochanteric fracture. Patient is status post right hip arthroplasty. Renal US revealed IMPRESSION: Bilateral renal nonobstructing calculi. No hydronephrosis bilaterally. Increased echogenicity of the left kidney which may be seen with medical renal disease. The urinary bladder and Babb catheter are not visualized EKG revealed SVT Tele revealed SVT which later transitioned into sinus rhythm Echocardiogram revealed: Technically limited study secondary to poor acoustic windows. Left ventricle: Mild concentric left ventricular hypertrophy was seen. LVEF was 55-60%. Right ventricle was normal size with normal systolic function. Both atria were mildly dilated. Aortic valve was not well visualized. Aortic sclerosis with no stenosis was observed. [id number] aortic insufficiency was observed. Mild mitral/tricuspid regurgitation was seen. Tricuspid valve was not well visualized. Right ventricular systolic pressure was assessed around 25 mm Hg. There was no pericardial effusion. Ascending aorta was 4.5 cm. Patient is a 74-year-old gentleman who presented with abdominal pain and is being managed for small bowel obstruction. He does have history of paroxysmal AFib. Has not been taking his medications regularly and this was followed with tachyarrhythmia. Tachyarrhythmia was in favor of SVT. SVT responded to adenosine Small-bowel obstruction Obesity History of gastric bypass Paroxysmal AFib SVT Status post adenosine management Diabetes mellitus Obesity, morbid Gallstone Renal stone Cardiac suggestion for management: For now, manage on telemetry Follow-up electrolytes and kidney function tests and correct abnormalities Keep potassium above 4 and magnesium above 2 Continue Cardizem Continue metoprolol tartrate Evaluation and management of gallstones/gastric outlet obstruction as per primary team/GI/surgery Long-term continuation of anticoagulation is suggested (for now patient on Lovenox). Further evaluation and management depends on the above and clinical course A total of 55 minutes was spent reviewing the patient record, examining the patient, making a diagnostic and therapeutic plan, discussing this plan with medical personnel, following up on diagnostic studies and following the patient for clinical stability excluding any and all procedures. At least 50% of this time was spent in direct, [id number] contact. Thank you for allowing me to participate in this patient's care. Further recommendations will depend on patient's clinical course. Please do not hesitate to contact me if you have any questions or concerns. This medical document was created using electronic medical record system with [employer] dictation system. Although this document has been carefully reviewed, there may still be some phonetic and typographical errors. These areas are purely typographical due to the imperfection of the software programs, and do not reflect any compromise in the patient's medical care. Dietary Evaluation Review Comments: 1. advance diet as tolerated per MD 2. Consider EN/TPN if Pt remains NPO for 48 hours Expected Outcomes/Goals: 1. Pt will consume >75% estimated needs within 2-3 days Plan discussed with: Patient, Other (Patient and Primary RN) EBENEZER MUÑOZ HONING MACHINE OPERATOR [employer]ODUCTION Jun 05, 2024 04:59
[2024-06-05 05:10] LABS: Basophils # (auto) 0 10 ^3/uL (0-0.2); Basophils % (auto) 0.1 % (0.0-2.0); Eosinophils # (auto) 0 10 ^3/uL (0-0.8); Neutrophils # (auto) 8.7 10 ^3/uL (1.6-8.6); Nucleated Red Blood Cells % 0.1 %; White Blood Cell 10.9 10^3/uL (4.4-10.8)
[2024-06-05 05:12] LABS: Eosinophils % (auto) 0.2 % (0.0-7.0); Hematocrit 27.8 % (41.0-53.0); Hemoglobin 9.7 g/dL (13.5-17.5); Lymphocytes % (auto) 9.4 % (10.0-50.0); Mean Corpuscular Hemoglobin 30.6 pg (28.0-32.0); Mean Corpuscular Hgb Conc. 34.8 g/dL (32.0-36.0); Monocytes # (auto) 1.1 10 ^3/uL (0-1.3); Monocytes % (auto) 10.1 % (0.0-12.0); Neutrophils % (auto) 80.2 % (37.0-80.0); Platelet Count (auto) 454 10^3/uL (140-450); Red Blood Cells 3.16 10^6/uL (4.5-5.90); Red Cell Distribution Width 16.6 % (11.8-14.3)
[2024-06-05 05:13] LABS: Chloride 87 mmol/L (98-107); Potassium 3.6 mmol/L (3.5-5.1); Sodium 127 mmol/L (136-145)
[2024-06-05 05:14] LABS: Anion Gap 10 (5-15); Calcium 9.1 mg/dL (8.7-10.4); Carbon Dioxide 30 mmol/L (20-31)
[2024-06-05 05:19] LABS: BUN/Creatinine Ratio 17.1 (10.0-20.0); Glucose 126 mg/dL (74-106)
[2024-06-05 05:20] LABS: Magnesium 1.9 mg/dL (1.6-2.6)
[2024-06-05 05:26] LABS: Blood Urea Nitrogen 62 mg/dL (9-23)
--- NOTE | 2024-06-05 10:32 | DVHPN2 ---
Progress Note Date Seen: Jun 05, 2024 Medical Necessity Reason Pt with a Central, PICC or Fol: No Subjective Other Systems: Patient seen and examined by myself on follow-up today Objective vital signs Vital Sign Date Time Temp Pulse Resp B/P (MAP) Pulse Ox O2 Delivery O2 Flow Rate FiO2 06/05/24 07:52 104 18 104/46 06/05/24 06:45 97 06/05/24 05:49 Nasal Cannula* 3 32 06/05/24 04:00 97.9 97.9 Total Intake and Output 06/04/24 06/04/24 06/05/24 15:00 23:00 07:00 Intake Total 86.25 ml 993.75 ml 656.25 ml Output Total 60 ml 600 ml Balance 86.25 ml 933.75 ml 56.25 ml medications Current Medications Medications Dose Ordered Sig/Jason Route Start Time Stop Time Status Last Admin Dose Admin Sodium Chloride 1,000 ml @ 75 mls/hr [id number] IV 05/22/24 15:00 06/04/24 21:34 75 MLS/HR Ondansetron HCl 4 mg Q4HP PRN IV 05/22/24 15:00 06/05/24 07:51 4 MG Acetaminophen 650 mg Q6HP PRN PO 05/22/24 15:00 05/29/24 21:55 650 MG Citalopram Hydrobromide 20 mg DAILY PO 05/23/24 10:00 06/03/24 09:22 20 MG Pantoprazole Sodium 40 mg DAILY PO 05/23/24 10:00 06/03/24 09:22 40 MG Hydralazine HCl 10 mg Q6HP PRN IV 05/23/24 05:00 05/24/24 01:34 10 MG Prochlorperazine Edisylate 10 mg Q6HP PRN IV 05/23/24 12:00 06/04/24 12:42 10 MG Atorvastatin Calcium 20 mg DAILY PO 05/24/24 10:00 06/03/24 09:22 20 MG Nortriptyline HCl 50 mg HS PO 05/23/24 22:00 06/03/24 22:42 50 MG Tamsulosin HCl 0.4 mg QPM PO 05/23/24 18:00 06/03/24 17:52 0.4 MG Enteral Nutritional Formula 27.5 gm BIDWM PO 05/27/24 18:00 05/31/24 10:54 27.5 GM Enteral Nutritional Formula 240 ml TIDWM PO 06/01/24 18:00 06/03/24 18:30 240 ML Morphine Sulfate 4 mg Q6HPRN PRN IV 06/02/24 14:30 06/05/24 07:52 4 MG Acetaminophen/ Hydrocodone Bitart 1 tab Q4HPRN PRN PO 06/02/24 14:30 Docusate Calcium 240 mg DAILY PO 06/03/24 12:33 06/03/24 19:44 240 MG Metoprolol Tartrate 10 mg BID PO 06/03/24 22:00 UNV Sennosides 8.6 mg DAILYP PO 06/03/24 12:33 06/03/24 13:52 8.6 MG Duloxetine HCl 60 mg DAILY PO 06/03/24 12:34 06/03/24 13:52 60 MG Metoprolol Tartrate 25 mg BID PO 06/03/24 22:00 06/03/24 22:43 25 MG Norepinephrine Bitartrate 250 ml @ 3.75 mls/hr Q24H IV 06/04/24 13:30 06/05/24 04:56 18.75 MLS/HR Metronidazole 100 ml @ 100 mls/hr Q8HR IV 06/04/24 15:00 06/05/24 05:41 100 MLS/HR Piperacillin Sod/ Tazobactam Sod 100 ml @ 25 mls/hr Q12HR IV 06/04/24 15:00 06/04/24 18:58 25 MLS/HR Enoxaparin Sodium 100 mg DAILY SC 06/05/24 10:00 Examination: LUNGS:Normal, CVS:Normal, MSK:Normal laboratory and microbiology Laboratory Tests 06/05/24 04:45 Test 06/05/24 04:45 Range/Units Serum Glucose 126 H 74-106 mg/dL Problem List/Assessment/Plan Problem List/Assessment/Plan SYBIL secondary to hemodynamic mediated, FeNa < 1% (Cr 1.0 on admission 05/22/24) Dehydration BPH with LUTS Septic shock Leukocytosis Bilateral nonobstructing nephrolithiasis s/p ORIF left hip 05/27 Hypotension Chronic diastolic HF A fib Abdominal pain Small-bowel obstruction on NG suction h/o gastric bypass REC: Kidney function slightly improving today Increased urine output Babb's catheter Strict I&O's IV fluid hydration kidney US reported bilateral nephrolithiasis and echogenic kidney Hold EDWARD inhibitors d/c allopurinol Blood cultures IV Abx IV Levophed Keep MAP > 65 mmHg Albumin 25 IVPB Will continue to follow Plan discussed with: Patient My Orders My Orders Orders - JON CARRIZALES MD Procedure Category Date Status Time Hepatitis C Antibody LAB 06/04/24 In Process 15:22 Hepatitis B Surface LAB 06/04/24 In Process Antigen 15:22 Dietary Evaluation Review Comments: 1. advance diet as tolerated per 2. Consider EN/TPN if Pt remains NPO for 48 hours Expected Outcomes/Goals: 1. Pt will consume >75% estimated needs within 2-3 days JON CARRIZALES MD Jun 05, 2024 10:32
--- NOTE | 2024-06-05 10:33 | DVHPN2 ---
Progress Note Date Seen: Jun 05, 2024 Medical Necessity Reason Pt with a Central, PICC or Fol: No Objective vital signs Vital Sign Date Time Temp Pulse Resp B/P (MAP) Pulse Ox O2 Delivery O2 Flow Rate FiO2 06/05/24 07:52 104 18 104/46 06/05/24 06:45 97 06/05/24 05:49 Nasal Cannula* 3 32 06/05/24 04:00 97.9 97.9 Total Intake and Output 06/04/24 06/04/24 06/05/24 15:00 23:00 07:00 Intake Total 86.25 ml 993.75 ml 656.25 ml Output Total 60 ml 600 ml Balance 86.25 ml 933.75 ml 56.25 ml medications Current Medications Medications Dose Ordered Sig/Jason Route Start Time Stop Time Status Last Admin Dose Admin Sodium Chloride 1,000 ml @ 75 mls/hr [id number] IV 05/22/24 15:00 06/04/24 21:34 75 MLS/HR Ondansetron HCl 4 mg Q4HP PRN IV 05/22/24 15:00 06/05/24 07:51 4 MG Acetaminophen 650 mg Q6HP PRN PO 05/22/24 15:00 05/29/24 21:55 650 MG Citalopram Hydrobromide 20 mg DAILY PO 05/23/24 10:00 06/03/24 09:22 20 MG Pantoprazole Sodium 40 mg DAILY PO 05/23/24 10:00 06/03/24 09:22 40 MG Hydralazine HCl 10 mg Q6HP PRN IV 05/23/24 05:00 05/24/24 01:34 10 MG Prochlorperazine Edisylate 10 mg Q6HP PRN IV 05/23/24 12:00 06/04/24 12:42 10 MG Atorvastatin Calcium 20 mg DAILY PO 05/24/24 10:00 06/03/24 09:22 20 MG Nortriptyline HCl 50 mg HS PO 05/23/24 22:00 06/03/24 22:42 50 MG Tamsulosin HCl 0.4 mg QPM PO 05/23/24 18:00 06/03/24 17:52 0.4 MG Enteral Nutritional Formula 27.5 gm BIDWM PO 05/27/24 18:00 05/31/24 10:54 27.5 GM Enteral Nutritional Formula 240 ml TIDWM PO 06/01/24 18:00 06/03/24 18:30 240 ML Morphine Sulfate 4 mg Q6HPRN PRN IV 06/02/24 14:30 06/05/24 07:52 4 MG Acetaminophen/ Hydrocodone Bitart 1 tab Q4HPRN PRN PO 06/02/24 14:30 Docusate Calcium 240 mg DAILY PO 06/03/24 12:33 06/03/24 19:44 240 MG Metoprolol Tartrate 10 mg BID PO 06/03/24 22:00 UNV Sennosides 8.6 mg DAILYP PO 06/03/24 12:33 06/03/24 13:52 8.6 MG Duloxetine HCl 60 mg DAILY PO 06/03/24 12:34 06/03/24 13:52 60 MG Metoprolol Tartrate 25 mg BID PO 06/03/24 22:00 06/03/24 22:43 25 MG Norepinephrine Bitartrate 250 ml @ 3.75 mls/hr Q24H IV 06/04/24 13:30 06/05/24 04:56 18.75 MLS/HR Metronidazole 100 ml @ 100 mls/hr Q8HR IV 06/04/24 15:00 06/05/24 05:41 100 MLS/HR Piperacillin Sod/ Tazobactam Sod 100 ml @ 25 mls/hr Q12HR IV 06/04/24 15:00 06/04/24 18:58 25 MLS/HR Enoxaparin Sodium 100 mg DAILY SC 06/05/24 10:00 laboratory and microbiology Laboratory Tests 06/05/24 04:45 Test 06/05/24 04:45 Range/Units Serum Glucose 126 H 74-106 mg/dL Problem List/Assessment/Plan Problem List/Assessment/Plan AFEBRILE VSS ABD SOFT NON TENDER N/V ONGOING NO BM R/O GASTROPARESIS /GASTRIC OUTLET OBSTRUCTION S/P GASTRIC BYPASS F/UP GI FOR POSSIBLE EGD GASTROGRAFIN STUDY INSTRUCTED NURSE AT BEDSIDE Plan discussed with: Patient My Orders My Orders Orders - MARTHA ALVARES MD Procedure Category Date Status Time * Financial Management Consultant CONS 06/04/24 Transmitted Consult Ng To Lis DEANNA 06/04/24 In Process 19:40 Dietary Evaluation Review Comments: 1. advance diet as tolerated per MD 2. Consider EN/TPN if Pt remains NPO for 48 hours Expected Outcomes/Goals: 1. Pt will consume >75% estimated needs within 2-3 days MARTHA ALVARES MD Jun 05, 2024 10:33
[2024-06-05] MEDS ORDERED: METOPROLOL TARTRATE 1MG/1ML-5ML VIAL IV PRN (11:15)
[2024-06-05] MEDS: SODIUM CHLORIDE 0.9% 1,000 ML IV SCH (11:23)
[2024-06-05] MEDS: ENOXAPARIN SOD 100 MG/1 ML SYRINGE SC SCH (11:23)
[2024-06-05] MEDS: GASTROGRAFIN 120 ML SOL ONE (11:41)
--- NOTE | 2024-06-05 14:17 | DVHPN2 ---
Progress Note - Dictate Date Seen: Jun 05, 2024 Medical Necessity Reason Pt with a Central, PICC or Fol: No vital signs Vital Sign Date Time Temp Pulse Resp B/P (MAP) Pulse Ox O2 Delivery O2 Flow Rate FiO2 06/05/24 11:30 98 14 110/59 (76) 97 06/05/24 10:00 Nasal Cannula* 3 32 06/05/24 08:00 98.1 98.1 Total Intake and Output 06/04/24 06/04/24 06/05/24 15:00 23:00 07:00 Intake Total 86.25 ml 993.75 ml 656.25 ml Output Total 60 ml 600 ml Balance 86.25 ml 933.75 ml 56.25 ml medications Current Medications Medications Dose Ordered Sig/Jason Route Start Time Stop Time Status Last Admin Dose Admin Ondansetron HCl 4 mg Q4HP PRN IV 05/22/24 15:00 06/05/24 07:51 4 MG Acetaminophen 650 mg Q6HP PRN PO 05/22/24 15:00 05/29/24 21:55 650 MG Citalopram Hydrobromide 20 mg DAILY PO 05/23/24 10:00 06/03/24 09:22 20 MG Pantoprazole Sodium 40 mg DAILY PO 05/23/24 10:00 06/03/24 09:22 40 MG Hydralazine HCl 10 mg Q6HP PRN IV 05/23/24 05:00 05/24/24 01:34 10 MG Prochlorperazine Edisylate 10 mg Q6HP PRN IV 05/23/24 12:00 06/04/24 12:42 10 MG Atorvastatin Calcium 20 mg DAILY PO 05/24/24 10:00 06/03/24 09:22 20 MG Nortriptyline HCl 50 mg HS PO 05/23/24 22:00 06/03/24 22:42 50 MG Tamsulosin HCl 0.4 mg QPM PO 05/23/24 18:00 06/03/24 17:52 0.4 MG Enteral Nutritional Formula 27.5 gm BIDWM PO 05/27/24 18:00 05/31/24 10:54 27.5 GM Enteral Nutritional Formula 240 ml TIDWM PO 06/01/24 18:00 06/03/24 18:30 240 ML Morphine Sulfate 4 mg Q6HPRN PRN IV 06/02/24 14:30 06/05/24 07:52 4 MG Acetaminophen/ Hydrocodone Bitart 1 tab Q4HPRN PRN PO 06/02/24 14:30 Docusate Calcium 240 mg DAILY PO 06/03/24 12:33 06/03/24 19:44 240 MG Metoprolol Tartrate 10 mg BID PO 06/03/24 22:00 UNV Sennosides 8.6 mg DAILYP PO 06/03/24 12:33 06/03/24 13:52 8.6 MG Duloxetine HCl 60 mg DAILY PO 06/03/24 12:34 06/03/24 13:52 60 MG Metoprolol Tartrate 25 mg BID PO 06/03/24 22:00 Hold 06/03/24 22:43 25 MG Norepinephrine Bitartrate 250 ml @ 3.75 mls/hr Q24H IV 06/04/24 13:30 06/05/24 04:56 18.75 MLS/HR Metronidazole 100 ml @ 100 mls/hr Q8HR IV 06/04/24 15:00 06/05/24 05:41 100 MLS/HR Piperacillin Sod/ Tazobactam Sod 100 ml @ 25 mls/hr Q12HR IV 06/04/24 15:00 06/05/24 11:22 25 MLS/HR Enoxaparin Sodium 100 mg DAILY SC 06/05/24 10:00 06/05/24 11:23 100 MG Sodium Chloride 1,000 ml @ 100 mls/hr Q10H IV 06/05/24 11:00 06/05/24 11:23 100 MLS/HR Metoprolol Tartrate 5 mg Q4HP PRN IV 06/05/24 11:15 Hold objective General Appearance: alert, no distress HEENT: EOMI, PERRLA, normal external inspect of ears, no icterus, no nasal drainage Neck: no carotid bruit, no jugular venous distention (JVD), no lymphadenopathy Chest: normal thorax Respiratory: clear to auscultation, normal air movement Cardiovascular: regular rate and rhythm, no diastolic murmur, no jugular venous distention (JVD), no rub, no systolic murmur Abdominal: soft, no hepatomegaly, no mass, no splenomegaly, no tenderness Genitourinary: grossly normal external Musculoskeletal: no joint tenderness, no swelling Extremities: normal pulses, no calf tenderness, no clubbing, no cyanosis, no edema Skin: no bruising, no jaundice, no rash Neurological: alert, No focal deficit laboratory and microbiology Laboratory Tests 06/05/24 04:45 Test 06/05/24 04:45 Range/Units Serum Glucose 126 H 74-106 mg/dL Problem List 1. Small bowel obstruction Monitor, surgical consult, GI consult, NPO 2. HLD Monitor 3. Persistent atrial fibrillation Monitor, full dose Lovenox 4. Obesity Monitor 5. Hx gastric bypass Monitor 6. Benign essential HTN Monitor, antihypertensives 7. Gallstones Monitor, surgical consult, GI consult, NPO, HIDA scan 8. Sepsis Monitor 9. Septic Shock Monitor 10. Acute renal failure Monitor, nephrology consult Assessment/Plan Subjective Patient is awake and alert. Objective Patient was transferred to [facility] yesterday due to intractable nausea and vomiting. Repeat KUB had shown small bowel ileus. Patient has a history of Dave-en-Y bypass. Patient was seen by general surgery. Patient is receiving higher level of care due to history of Dave-en-Y bypass with small bowel obstruction, currently pending small bowel series as ordered by general surgery. GI has been re-consulted. Patient was originally admitted for abdominal pain related to small bowel obstruction versus ileus. A questionable cholecystitis was ruled out by a second HIDA scan. Patient sustained a fall in the hospital and is status post ORIF of his left hip. Plan Small bowel series pending. Patient to remain NPO. Continue TPN for additional nutrition. General surgery and GI recommendations are appreciated. Dietary Evaluation Review Comments: 1. advance diet as tolerated per MD 2. Consider EN/TPN if Pt remains NPO for 48 hours Expected Outcomes/Goals: 1. Pt will consume >75% estimated needs within 2-3 days Plan discussed with: Patient, Other TETO CRAMER FLOOR WAXER Jun 05, 2024 14:17
--- NOTE | 2024-06-05 15:00 | DVH ---
Procedure: XY SMALL BOWEL SERIES-W GASTROGRA Reason for study/Clinical History: R/O SBO Comparison Study: None available at time of dictation. Technique: Single contrast small bowel series performed. FINDINGS/IMPRESSION: Initial pool table mechanic view of the abdomen and pelvis appears demonstrates no acute process. Enteric tube in t he stomach. Minimal contrast residual in the stomach no contrast in the small bowel.
--- NOTE | 2024-06-05 15:30 | DVH ---
CHEST RADIOGRAPH Indication:s/p left IJ central line placement Technique: Single frontal view of the chest was obtained Comparison: XY CHEST PORTABLE on DOS: 05/23/24, CHEST PORTABLE on DOS: 02/20/20, CHEST PORTABLE on DOS: 02/05/20 FINDINGS: Lines and Tubes: Internal jugular catheter in place in the left with the tip at the cavoatrial juncti on. There is no pneumothorax on the left. Lungs: No focal consolidation. Pleura: No effusion. No pneumothorax. Cardiomediastinal contours: Unremarkable Bones: No acute osseous abnormality. IMPRESSION: 1. Left internal jugular catheter in place with the tip at the cavoatrial junction 2. No acute cardiopulmonary disease.
--- NOTE | 2024-06-05 15:43 | DVHINCON2 ---
Date of service: Jun 05, 2024 Referring Physician Dakota Lorenz Reason for Consultation N/V possible EGD History of Present Illness 74M BIBA w/ prior Hx of hip surgery in 2013 which may be associated to the c/c of ABD pain. Pt reports that he was eating a sandwich and immediately after the pt started to feel epigastric ABD pain which radiated up into the pt chest, causing CP. Pt notes that he did eat the sandwich yesterday on 05/21/24. EMS states that the pt complained of having a CARR[place] and having soft stools. Patient has been evaluated in the hospital and surgical consult is following patient for possible bowel obstruction. Patient is awaiting a small bowel series. He has not suspected to have acute bowel obstruction but likely ileus. I was asked to consult on him for a possible endoscopy as the patient has had a previous gastric bypass. Patient wants to eat but he keeps spitting up. Patient states he has a postnasal drip and he has phlegm in his throat which he has to spit up. His last endoscopy was over 15 years ago. Past Medical History Cardiovascular: AFIB, CHF, HTN, hyperipidemia Pulmonary: COPD Past Medical History Arthritis Past Surgical History Past Surgical History: Total hip replacement (Right in 2013), Tonsillectomy; gastric bypass surgery Family History: Alcoholism Cancer Cancer of colon Family history: Arthritis Family history: Asthma Family history: Blood disorder Family history: Cardiovascular disease Family history: Depression (situation) Family history: Diabetes mellitus Family history: Glaucoma Family history: Hypercholesterolemia (situation) Family history: Hypertension Family history: Thyroid disorder Malignant melanoma Malignant neoplasm of ovary Seizure disorder (situation) Stroke No Family History of: Family history: Alzheimer's disease Family history: Congenital anomaly Family history: Coronary thrombosis Family history: Diabetes in Family history: Osteoporosis Family history: Suicide (situation) Ischemic heart disease Malignant neoplasm of breast Malignant neoplasm of lung Prostate cancer Renal stone Allergies: Coded Allergies: Amiodarone (Verified Allergy, Unknown, 08/11/20) Diphenhydramine (Verified Allergy, Unknown, 08/11/20) Furosemide (Verified Allergy, Unknown, 08/11/20) Ibuprofen (Verified Allergy, Unknown, 08/11/20) Naproxen (Verified Allergy, Unknown, 08/11/20) Sulfa Drugs (Verified Allergy, Unknown, 08/11/20) Home Meds Active Scripts Prednisone (Prednisone) 20 Mg Tab, 60 MG PO DAILY for 3 Days, #9 MG Prov:REILLY REYES DO 12/13/21 Apixaban Base (ELIQUIS) 5 Mg Tab, 5 MG PO BID, #60 TAB Prov:JUNAY ROBERTS MD 02/07/20 Metoprolol Tartrate (Lopressor) 25 Mg Tb, 12.5 MG PO BID, #30 TAB Check blood pressure and pulse prior to dose. Hold medication if systolic blood pressure is below 120 or pulse less than 70 Prov:JUANY ROBERTS MD 02/07/20 Reported Medications Allopurinol (Allopurinol) 300 Mg Tab, 300 MG PO Q12HR for 30 Days, MG 05/23/24 Duloxetine Hcl (Cymbalta) 60 Mg Cap, 1 CAP PO DAILY, #90 CAP 3 Refills 05/23/24 Omeprazole (Gnp Omeprazole) 20 Mg Tab, 1 TAB PO DAILY, #90 TAB 1 Refill 05/23/24 Tamsulosin Hcl (Tamsulosin Hcl) 0.4 Mg Cap, 0.4 MG PO QPM for 30 Days, MG 05/23/24 Diltiazem Hcl (Diltiazem Hcl) 60 Mg Tab, 60 MG PO BID for 30 Days, MG 05/23/24 Atorvastatin Calcium (Lipitor) 20 Mg Tab, 1 TAB PO DAILY, #90 TAB 1 Refill 05/23/24 Docusate Sodium (Colace) 100 Mg Cap, 1 CAP PO BID, #30 CAP 05/23/24 Pseudoephedrine HCl ([facility] 12 Hour Nasal [place]) 120 Mg Tab, 60 MG PO BID, TAB 05/23/24 Cetirizine Hcl (Kls Aller-Maria Teresa) 10 Mg Tab, 1 TAB PO DAILY, #30 TAB 3 Refills 05/23/24 Metoprolol Tartrate (Metoprolol Tartrate) 25 Mg Tab, 10 MG PO BID for 30 Days, MG 02/21/20 Lisinopril (Lisinopril) 10 Mg Tab, 10 MG PO BID for 30 Days, MG 02/21/20 Diazepam (Diazepam) 10 Mg Tab, 30 MG PO BID, TAB 02/21/20 Hydrochlorothiazide (Hydrochlorothiazide) 12.5 Mg Cap, 12.5 MG PO DAILY for 30 Days, MG 02/21/20 Nortriptyline Hcl (PAMELOR CAPSULE) 25 Mg Cp, 50 MG PO HS, CP 03/27/14 Allopurinol (Zyloprim) 100 Mg Tab 01/24/13 Omeprazole (Sm Omeprazole) 20 Mg Tab, 40 MG PO DAILY 01/24/13 Docusate Calcium (Sb Stool Softener) 240 Mg Cap, PO 01/24/13 Nitroglycerin (Nitroglycerin) 0.4 Mg Sl, DAILYP 01/24/13 Trazodone Hcl (Trazodone Hcl) 100 Mg Tab, PO HS 01/24/13 Atorvastatin Calcium (ATORVASTATIN CALCIUM) 40 Mg Tab, PO HS 01/24/13 Senna (Sennosides) 8.6 Mg Tab, PO DAILYP 01/24/13 Potassium Chloride (K-Tabs) 10 Meq Tab, PO DAILY 01/24/13 Multiple Vitamin (Mvi Tab) 1 Tab Tb 01/13/12 [place]-3 Fatty Acids (Fish Oil) 1,000 Mg Cap 01/13/12 Epinephrine Hcl (Anaphylaxis) (Epipen) 0.3 Mg Inj 01/13/12 Citalopram Hydrobromide (Citalopram Hydrobromide) 20 Mg Tab 01/13/12 Cholecalciferol (D 400) 400 Unit Chw 01/13/12 Albuterol Sulfate (Albuterol Sulfate) 0.5 % Neb 01/13/12 Current Medications Current Medications Medications (Trade) Dose Ordered Sig/Jason Route PRN Reason Start Time Stop Time Status Last Admin Diltiazem HCl (Cardizem Injection) 10 mg Q6HR IV 06/04/24 18:00 06/04/24 19:07 DC Enoxaparin Sodium (Lovenox) 100 mg DAILY SC 06/05/24 10:00 06/05/24 11:23 Sodium Chloride 1,000 ml @ 100 mls/hr Q10H IV 06/05/24 11:00 06/05/24 11:23 Metoprolol Tartrate (Lopressor) 5 mg Q4HP PRN IV HEART RATE GREATER THAN 110 06/05/24 11:15 Hold Vital Signs Vital Signs Date Time Temp Pulse Resp B/P (MAP) Pulse Ox O2 Delivery O2 Flow Rate FiO2 06/05/24 14:00 98 06/05/24 14:00 16 97 Nasal Cannula* 3 32 06/05/24 11:30 110/59 (76) 06/05/24 08:00 98.1 98.1 Physical Exam General Appearance: alert, no distress HEENT: EOMI, PERRLA, normal external inspect of ears, no icterus, no nasal drainage Neck: no carotid bruit, no jugular venous distention (JVD), no lymphadenopathy Chest: normal thorax Respiratory: clear to auscultation, normal air movement Cardiovascular: regular rate and rhythm, no diastolic murmur, no jugular venous distention (JVD), no rub, no systolic murmur Abdominal: soft, no hepatomegaly, no mass, no splenomegaly, no tenderness Genitourinary: grossly normal external Musculoskeletal: no joint tenderness, no swelling Extremities: normal pulses, no calf tenderness, no clubbing, no cyanosis, no edema Skin: no bruising, no jaundice, no rash Neurological: alert, No focal deficit Labs/Diagnostic Data Labs Test 06/05/24 04:45 06/04/24 21:00 06/04/24 18:00 06/04/24 16:37 Range/Units White Blood Count 10.9 #H 4.4-10.8 10^3/uL Red Blood Count 3.16 L 4.5-5.90 10^6/uL Hemoglobin 9.7 L 13.5-17.5 g/dL Hematocrit 27.8 L 41.0-53.0 % Mean Corpuscular Volume 88.0 80.0-100.0 fL Mean Corpuscular Hemoglobin 30.6 28.0-32.0 pg Mean Corpuscular Hemoglobin Concent 34.8 32.0-36.0 g/dL Red Cell Distribution Width 16.6 H 11.8-14.3 % Platelet Count 454 H 140-450 10^3/uL Mean Platelet Volume 7.5 6.9-10.8 fL Neutrophils (%) (Auto) 80.2 H 37.0-80.0 % Lymphocytes (%) (Auto) 9.4 L 10.0-50.0 % Monocytes (%) (Auto) 10.1 0.0-12.0 % Eosinophils (%) (Auto) 0.2 0.0-7.0 % Basophils (%) (Auto) 0.1 0.0-2.0 % Neutrophils # (Auto) 8.7 H 1.6-8.6 10 ^3/uL Lymphocytes # (Auto) 1.0 0.4-5.4 10 ^3/uL Monocytes # (Auto) 1.1 0-1.3 10 ^3/uL Eosinophils # (Auto) 0 0-0.8 10 ^3/uL Basophils # (Auto) 0 0-0.2 10 ^3/uL Nucleated Red Blood Cells 0.1 % Sodium Level 127 L 136-145 mmol/L Potassium Level 3.6 3.5-5.1 mmol/L Chloride Level 87 L 98-107 mmol/L Carbon Dioxide Level 30 20-31 mmol/L Anion Gap 10 5-15 Blood Urea Nitrogen 62 #H 9-23 mg/dL Creatinine 3.62 H 0.700-1.30 mg/dL Glomerular Filtration Rate Calc 17 >90 mL/min BUN/Creatinine Ratio 17.1 10.0-20.0 Serum Glucose 126 H 74-106 mg/dL Calcium Level 9.1 8.7-10.4 mg/dL Magnesium Level 1.9 1.6-2.6 mg/dL Urine Color Yellow Yellow Urine Clarity Turbid H Clear Urine pH 5.0 5.0-9.0 Urine Specific [place] 1.019 1.001-1.035 Urine Protein 1+ H Negative Urine Ketones Trace Negative Urine Blood Trace H Negative /uL Urine Nitrite Negative Negative Urine Bilirubin 1+ Negative Urine Urobilinogen 2 H Negative mg/dL Urine Leukocyte Esterase 1+ Negative /uL Urine RBC 26 0 - 3 /hpf Urine WBC 17 0 - 3 /hpf Urine Squamous Epithelial Cells Few <5 /hpf Urine Bacteria Few H None Seen /hpf Urine Hyaline Casts Few 0 - 2 /lpf Urine Mucus Few None Seen Urine Osmolality 337 mOsm/kg Urine Creatinine 146.30 H 30.0-125.0 mg/dL Urine Protein/Creatinine Ratio 0.75 Urine Sodium 17 L 40-220 mmol/L Urine Glucose Normal Normal mg/dL Urine Total Protein 109.2 H 1-14 mg/dL Prothrombin Time 11.8 9.3-11.8 sec Prothrombin Time INR 1.12 0.9-1.15 Activated Partial Thromboplast Time 34.4 24.5-34.5 SEC Phosphorus Level 5.4 H 2.4-5.1 mg/dL Vitamin D 25-Hydroxy 35.8 30.0-100 ng/mL Parathyroid Hormone (Intact) 235.7 H 18.4-80.1 pg/mL Test 06/04/24 14:28 06/01/24 22:17 05/31/24 06:26 05/28/24 14:52 Range/Units Lactic Acid Level 1.2 0.4-2.0 mmol/L POC Glucose 104 70-106 mg/dl Differential Total Cells Counted 100.0 100 Neutrophils % (Manual) 74 37.0-80.0 Band Neutrophils % (Manual) 0 Lymphocytes % (Manual) 13 10.0-50.0 Monocytes % (Manual) 13 H 0-12 Eosinophils % (Manual) 0 0-7 Basophils % (Manual) 0 0.0-2.0 Metamyelocytes % (manual) 0 Myelocytes % (Manual) 0 Promyelocytes % (Manual) 0 Blast Cells % (Manual) 0 Reactive Lymphocytes 0 Platelet Estimate Adequate Total Bilirubin 0.9 0.2-1.0 mg/dL Aspartate Amino Transferase (AST) 31 13-40 U/L Alanine Aminotransferase (ALT) 20 7-40 U/L Alkaline Phosphatase 81 46-116 U/L Total Protein 5.7 5.7-8.2 g/dL Albumin 3.4 3.2-4.8 g/dL Test 05/26/24 15:33 05/24/24 05:26 05/22/24 10:29 Range/Units Hemoglobin A1c 5.2 <5.7 % A1C Troponin I High Sensitivity 11 </=54 ng/L Triglycerides Level 84 < 150 mg/dL Cholesterol Level 144 < 200 mg/dL LDL Cholesterol 80 < 100 mg/dL HDL Cholesterol 48 40-59 mg/dL Thyroid Stimulating Hormone (TSH) 3.28 0.55-4.78 uIU/mL Microbiology Date/Time Source Procedure Growth Status 06/04/24 19:00 Nose MRSA Screen - Final Complete Abd X Ray FINDINGS/IMPRESSION: Initial service electrician view of the abdomen and pelvis appears demonstrates no acute process. Enteric tube in the stomach. Minimal contrast residual in the stomach no contrast in the small bowel. GB USG IMPRESSION: 1. Limited examination as described above. Possible gallbladder sludge and distended gallbladder. No sonographic evidence of acute cholecystitis. HIDA SCAN Negative Problems(with codes): (1) Gastric bypass status for obesity (2) N&V (nausea and vomiting) (3) INTESTINAL OBSTRUCT NOS Plan/Recommendation Plan IV PPI Ice chips I will schedule endoscopy in the next 24-48 hours under MAC sedation rule out anastomotic ulcer or stricture Continue supportive care IV TPN Plan discussed with: Patient SRINIVASAN LORENZ MD Jun 05, 2024 15:43
--- NOTE | 2024-06-05 21:11 | DVHINCON2 ---
Date of service: Jun 05, 2024 Referring Physician Makenzie Mcnamara NP Reason for Consultation Acute hypoxic respiratory failure requiring supplemental O2 History of Present Illness A 74-year-old man with PMHx that includes COPD, AFib, congestive heart failure, hypertension, and hyperlipidemia who presented to the hospital on 05/22/24 with c/o abdominal pain. Pt reports on the day prior to presentation, he was eating a sandwich and immediately after, started to feel epigastric abdominal pain radiating into the chest. Per EMS, pt complained of headache and soft stools. He denied chills, fever, SOB, N/V or any other associated symptoms. Patient was admitted for further care. Pulmonary consultation is requested for evaluation and management due to acute hypoxic respiratory failure requiring supplemental O2, Review of Systems: 14-point review of systems negative unless otherwise noted above. Past Medical History: COPD, AFIB, congestive heart failure, hypertension, hyperlipidemia, arthritis Past Surgical History: Total hip replacement (Right in 2013), Tonsillectomy. Gastric bypass (Dave-en-Y) Medications: Reviewed. Allergies: Amiodarone Diphenhydramine Furosemide Ibuprofen Naproxen Sulfa Drugs Family History: Alcoholism Cancer of colon Arthritis Asthma Blood disorder Cardiovascular disease Depression Diabetes mellitus Glaucoma Hypercholesterolemia Hypertension Thyroid disorder Malignant melanoma Malignant neoplasm of ovary Seizure disorder Stroke Social History: Nonsmoker. No alcohol or illicit drug use. Family History: Alcoholism Cancer Cancer of colon Family history: Arthritis Family history: Asthma Family history: Blood disorder Family history: Cardiovascular disease Family history: Depression (situation) Family history: Diabetes mellitus Family history: Glaucoma Family history: Hypercholesterolemia (situation) Family history: Hypertension Family history: Thyroid disorder Malignant melanoma Malignant neoplasm of ovary Seizure disorder (situation) Stroke No Family History of: Family history: Alzheimer's disease Family history: Congenital anomaly Family history: Coronary thrombosis Family history: Diabetes in Family history: Osteoporosis Family history: Suicide (situation) Ischemic heart disease Malignant neoplasm of breast Malignant neoplasm of lung Prostate cancer Renal stone Allergies: Coded Allergies: Amiodarone (Verified Allergy, Unknown, 08/11/20) Diphenhydramine (Verified Allergy, Unknown, 08/11/20) Furosemide (Verified Allergy, Unknown, 08/11/20) Ibuprofen (Verified Allergy, Unknown, 08/11/20) Naproxen (Verified Allergy, Unknown, 08/11/20) Sulfa Drugs (Verified Allergy, Unknown, 08/11/20) Home Meds Active Scripts Prednisone (Prednisone) 20 Mg Tab, 60 MG PO DAILY for 3 Days, #9 MG Prov:REILLY REYES DO 12/13/21 Apixaban Base (ELIQUIS) 5 Mg Tab, 5 MG PO BID, #60 TAB Prov:JUANY ROBERTS MD 02/07/20 Metoprolol Tartrate (Lopressor) 25 Mg Tb, 12.5 MG PO BID, #30 TAB Check blood pressure and pulse prior to dose. Hold medication if systolic blood pressure is below 120 or pulse less than 70 Prov:JUANY ROBERTS MD 02/07/20 Reported Medications Allopurinol (Allopurinol) 300 Mg Tab, 300 MG PO Q12HR for 30 Days, MG 05/23/24 Duloxetine Hcl (Cymbalta) 60 Mg Cap, 1 CAP PO DAILY, #90 CAP 3 Refills 05/23/24 Omeprazole (Gnp Omeprazole) 20 Mg Tab, 1 TAB PO DAILY, #90 TAB 1 Refill 05/23/24 Tamsulosin Hcl (Tamsulosin Hcl) 0.4 Mg Cap, 0.4 MG PO QPM for 30 Days, MG 05/23/24 Diltiazem Hcl (Diltiazem Hcl) 60 Mg Tab, 60 MG PO BID for 30 Days, MG 05/23/24 Atorvastatin Calcium (Lipitor) 20 Mg Tab, 1 TAB PO DAILY, #90 TAB 1 Refill 05/23/24 Docusate Sodium (Colace) 100 Mg Cap, 1 CAP PO BID, #30 CAP 05/23/24 Pseudoephedrine HCl ([facility] 12 Hour Nasal [place]) 120 Mg Tab, 60 MG PO BID, TAB 05/23/24 Cetirizine Hcl (Kls Aller-Maria Teresa) 10 Mg Tab, 1 TAB PO DAILY, #30 TAB 3 Refills 05/23/24 Metoprolol Tartrate (Metoprolol Tartrate) 25 Mg Tab, 10 MG PO BID for 30 Days, MG 02/21/20 Lisinopril (Lisinopril) 10 Mg Tab, 10 MG PO BID for 30 Days, MG 02/21/20 Diazepam (Diazepam) 10 Mg Tab, 30 MG PO BID, TAB 02/21/20 Hydrochlorothiazide (Hydrochlorothiazide) 12.5 Mg Cap, 12.5 MG PO DAILY for 30 Days, MG 02/21/20 Nortriptyline Hcl (PAMELOR CAPSULE) 25 Mg Cp, 50 MG PO HS, CP 03/27/14 Allopurinol (Zyloprim) 100 Mg Tab 01/24/13 Omeprazole (Sm Omeprazole) 20 Mg Tab, 40 MG PO DAILY 01/24/13 Docusate Calcium (Sb Stool Softener) 240 Mg Cap, PO 01/24/13 Nitroglycerin (Nitroglycerin) 0.4 Mg Sl, DAILYP 01/24/13 Trazodone Hcl (Trazodone Hcl) 100 Mg Tab, PO HS 01/24/13 Atorvastatin Calcium (ATORVASTATIN CALCIUM) 40 Mg Tab, PO HS 01/24/13 Senna (Sennosides) 8.6 Mg Tab, PO DAILYP 01/24/13 Potassium Chloride (K-Tabs) 10 Meq Tab, PO DAILY 01/24/13 Multiple Vitamin (Mvi Tab) 1 Tab Tb 01/13/12 [place]-3 Fatty Acids (Fish Oil) 1,000 Mg Cap 01/13/12 Epinephrine Hcl (Anaphylaxis) (Epipen) 0.3 Mg Inj 01/13/12 Citalopram Hydrobromide (Citalopram Hydrobromide) 20 Mg Tab 01/13/12 Cholecalciferol (D 400) 400 Unit Chw 01/13/12 Albuterol Sulfate (Albuterol Sulfate) 0.5 % Neb 01/13/12 Current Medications Current Medications Medications (Trade) Dose Ordered Sig/Jason Route PRN Reason Start Time Stop Time Status Last Admin Enoxaparin Sodium (Lovenox) 100 mg DAILY SC 06/05/24 10:00 06/05/24 11:23 Sodium Chloride 1,000 ml @ 100 mls/hr Q10H IV 06/05/24 11:00 06/05/24 20:52 Metoprolol Tartrate (Lopressor) 5 mg Q4HP PRN IV HEART RATE GREATER THAN 110 06/05/24 11:15 Hold Vital Signs Vital Signs Date Time Temp Pulse Resp B/P (MAP) Pulse Ox O2 Delivery O2 Flow Rate FiO2 06/05/24 20:51 101 17 142/48 06/05/24 19:30 98 06/05/24 18:00 Nasal Cannula* 3 32 06/05/24 16:00 97.8 97.8 Physical Exam Gen.: Patient lying in bed in no apparent distress. On supplemental oxygen. Head: Normocephalic, atraumatic. Eyes: EOMI/PERRLA. Ears: Normal hearing. Normal anatomy. Neck/trachea: Trachea midline, supple. Nose: Normal external anatomy. Mouth: Moist mucous membranes. Chest: Decreased air entry bilaterally. No wheezing or rhonchi. Cardiovascular: Positive S1, positive S2. Regular rate and rhythm. Abdomen: Positive bowel sounds in all 4 quadrants. Soft, non-tender, non- distended. : Deferred. Rectal: Deferred. Skin: Warm, dry. Intact. Extremities: 2+ radial pulses bilaterally. No lower extremity edema. Neuro: Awake, alert, oriented x3. No gross motor or sensory deficits. Cranial nerves II through XII intact. Gait not assessed. Labs/Diagnostic Data Labs Test 06/05/24 04:45 06/04/24 21:00 06/04/24 18:00 06/04/24 16:37 Range/Units White Blood Count 10.9 #H 4.4-10.8 10^3/uL Red Blood Count 3.16 L 4.5-5.90 10^6/uL Hemoglobin 9.7 L 13.5-17.5 g/dL Hematocrit 27.8 L 41.0-53.0 % Mean Corpuscular Volume 88.0 80.0-100.0 fL Mean Corpuscular Hemoglobin 30.6 28.0-32.0 pg Mean Corpuscular Hemoglobin Concent 34.8 32.0-36.0 g/dL Red Cell Distribution Width 16.6 H 11.8-14.3 % Platelet Count 454 H 140-450 10^3/uL Mean Platelet Volume 7.5 6.9-10.8 fL Neutrophils (%) (Auto) 80.2 H 37.0-80.0 % Lymphocytes (%) (Auto) 9.4 L 10.0-50.0 % Monocytes (%) (Auto) 10.1 0.0-12.0 % Eosinophils (%) (Auto) 0.2 0.0-7.0 % Basophils (%) (Auto) 0.1 0.0-2.0 % Neutrophils # (Auto) 8.7 H 1.6-8.6 10 ^3/uL Lymphocytes # (Auto) 1.0 0.4-5.4 10 ^3/uL Monocytes # (Auto) 1.1 0-1.3 10 ^3/uL Eosinophils # (Auto) 0 0-0.8 10 ^3/uL Basophils # (Auto) 0 0-0.2 10 ^3/uL Nucleated Red Blood Cells 0.1 % Sodium Level 127 L 136-145 mmol/L Potassium Level 3.6 3.5-5.1 mmol/L Chloride Level 87 L 98-107 mmol/L Carbon Dioxide Level 30 20-31 mmol/L Anion Gap 10 5-15 Blood Urea Nitrogen 62 #H 9-23 mg/dL Creatinine 3.62 H 0.700-1.30 mg/dL Glomerular Filtration Rate Calc 17 >90 mL/min BUN/Creatinine Ratio 17.1 10.0-20.0 Serum Glucose 126 H 74-106 mg/dL Calcium Level 9.1 8.7-10.4 mg/dL Magnesium Level 1.9 1.6-2.6 mg/dL Urine Color Yellow Yellow Urine Clarity Turbid H Clear Urine pH 5.0 5.0-9.0 Urine Specific [place] 1.019 1.001-1.035 Urine Protein 1+ H Negative Urine Ketones Trace Negative Urine Blood Trace H Negative /uL Urine Nitrite Negative Negative Urine Bilirubin 1+ Negative Urine Urobilinogen 2 H Negative mg/dL Urine Leukocyte Esterase 1+ Negative /uL Urine RBC 26 0 - 3 /hpf Urine WBC 17 0 - 3 /hpf Urine Squamous Epithelial Cells Few <5 /hpf Urine Bacteria Few H None Seen /hpf Urine Hyaline Casts Few 0 - 2 /lpf Urine Mucus Few None Seen Urine Osmolality 337 mOsm/kg Urine Creatinine 146.30 H 30.0-125.0 mg/dL Urine Protein/Creatinine Ratio 0.75 Urine Sodium 17 L 40-220 mmol/L Urine Glucose Normal Normal mg/dL Urine Total Protein 109.2 H 1-14 mg/dL Prothrombin Time 11.8 9.3-11.8 sec Prothrombin Time INR 1.12 0.9-1.15 Activated Partial Thromboplast Time 34.4 24.5-34.5 SEC Phosphorus Level 5.4 H 2.4-5.1 mg/dL Vitamin D 25-Hydroxy 35.8 30.0-100 ng/mL Parathyroid Hormone (Intact) 235.7 H 18.4-80.1 pg/mL Test 06/04/24 14:28 06/01/24 22:17 05/31/24 06:26 05/28/24 14:52 Range/Units Lactic Acid Level 1.2 0.4-2.0 mmol/L POC Glucose 104 70-106 mg/dl Differential Total Cells Counted 100.0 100 Neutrophils % (Manual) 74 37.0-80.0 Band Neutrophils % (Manual) 0 Lymphocytes % (Manual) 13 10.0-50.0 Monocytes % (Manual) 13 H 0-12 Eosinophils % (Manual) 0 0-7 Basophils % (Manual) 0 0.0-2.0 Metamyelocytes % (manual) 0 Myelocytes % (Manual) 0 Promyelocytes % (Manual) 0 Blast Cells % (Manual) 0 Reactive Lymphocytes 0 Platelet Estimate Adequate Total Bilirubin 0.9 0.2-1.0 mg/dL Aspartate Amino Transferase (AST) 31 13-40 U/L Alanine Aminotransferase (ALT) 20 7-40 U/L Alkaline Phosphatase 81 46-116 U/L Total Protein 5.7 5.7-8.2 g/dL Albumin 3.4 3.2-4.8 g/dL Test 05/26/24 15:33 05/24/24 05:26 05/22/24 10:29 Range/Units Hemoglobin A1c 5.2 <5.7 % A1C Troponin I High Sensitivity 11 </=54 ng/L Triglycerides Level 84 < 150 mg/dL Cholesterol Level 144 < 200 mg/dL LDL Cholesterol 80 < 100 mg/dL HDL Cholesterol 48 40-59 mg/dL Thyroid Stimulating Hormone (TSH) 3.28 0.55-4.78 uIU/mL Microbiology Date/Time Source Procedure Growth Status 06/04/24 19:00 Nose MRSA Screen - Final Complete Assessment Impression: Septic shock Acute hypoxic respiratory failure Acute kidney injury Small bowel obstruction Atrial fibrillation Hx of gastric bypass (Dave-en-Y) Obesity, BMI 34.2 Plan: S/p central line placement. Needed for administration of pressors. Supplemental oxygen, 2 LPM NC Titrate to keep O2 sats above 92%. Antibiotics Incentive spirometry On pressors for hemodynamic support Levophed 10 mcg/min Titrate to keep mean arterial pressure greater than 65 mmHg. GI recommendations appreciated. WBC trending down. Hemoglobin monitor Monitor renal function. Monitor electrolytes. Supplement as necessary. Monitor ins and outs. Sodium 127 Creatinine trending down. Diet and lifestyle modifications discussed Obesity - complicates all care. DVT prophylaxis. Prognosis: Poor given patient's multiple co-morbidities. Condition: Critical Rest of plan per hospitalist and other consultants. A total of 35 minutes of critical care time was spent reviewing the patient record, examining the patient, making a diagnostic and therapeutic plan, discussing this plan with the medical personnel, following up on diagnostic studies and following the patient for clinical stability excluding any and all procedures. At least 50% of this time was spent in direct, [id number] contact. Thank you S JENNA Mcnamara, for allowing me to participate in this patient's care. Further recommendations will depend on the patient's clinical course. Please do not hesitate to contact me if you have any questions or concerns. This medical document was created using an electronic medical record system with [employer] dictation system. Although these documentations are being carefully reviewed, there may still be some phonetic and typographical changes. The errors are purely typographical, due to imperfection on the software program, and do not reflect any compromise in the patient's medical care Plan discussed with: Patient, Other (NIRAV Martinez, [employer]PAR[employer] SALES LEADER MD Jose) PRISCILLA CORREA MD Jun 05, 2024 21:11
[2024-06-06] VITALS (96 sets, daily range): BP systolic 88–140; BP diastolic 29–60; PULSE 72–114; RESP 11–27; TEMP 97.6–97.8; O2SAT 82–100
[2024-06-06 05:06] LABS: Basophils # (auto) 0 10 ^3/uL (0-0.2); Basophils % (auto) 0.2 % (0.0-2.0); Eosinophils # (auto) 0 10 ^3/uL (0-0.8); Eosinophils % (auto) 0.6 % (0.0-7.0); Hematocrit 25.4 % (41.0-53.0); Hemoglobin 8.5 g/dL (13.5-17.5); Lymphocytes # (auto) 0.9 10 ^3/uL (0.4-5.4); Lymphocytes % (auto) 14.9 % (10.0-50.0); Mean Corpuscular Hemoglobin 29.9 pg (28.0-32.0); Mean Corpuscular Hgb Conc. 33.5 g/dL (32.0-36.0); Mean Corpuscular Volume 89.2 fL (80.0-100.0); Monocytes # (auto) 0.8 10 ^3/uL (0-1.3); Monocytes % (auto) 12.5 % (0.0-12.0); Neutrophils # (auto) 4.4 10 ^3/uL (1.6-8.6); Neutrophils % (auto) 71.8 % (37.0-80.0); Platelet Count (auto) 367 10^3/uL (140-450); Red Blood Cells 2.85 10^6/uL (4.5-5.90); Red Cell Distribution Width 16.8 % (11.8-14.3); White Blood Cell 6.2 10^3/uL (4.4-10.8)
[2024-06-06 06:33] LABS: Chloride 94 mmol/L (98-107); Potassium 3.4 mmol/L (3.5-5.1); Sodium 131 mmol/L (136-145)
[2024-06-06 06:34] LABS: Anion Gap 9 (5-15); Carbon Dioxide 28 mmol/L (20-31)
[2024-06-06 06:40] LABS: BUN/Creatinine Ratio 29.8 (10.0-20.0); Blood Urea Nitrogen 51 mg/dL (9-23); Glucose 103 mg/dL (74-106)
--- NOTE | 2024-06-06 07:52 | DVHPN2 ---
Progress Note - Dictate Date Seen: Jun 06, 2024 Medical Necessity Reason Pt with a Central, PICC or Fol: No Subjective Patient seen and examined at the bedside within the [facility]. Remains ICU status secondary to hypotension subsequently started on Levophed infusion. Current infusion rate of 1mcg/minute. Patient remains NPO status in the setting of SBO which GI services remain following. Diltiazem has now been discontinued secondary to hypotension. Metoprolol tartrate currently held secondary to NPO status. Metoprolol Tartrate 5mg IVP prn for rate/rhythm control has been ordered during the interim. Pending plan of Endoscopy tomorrow with GI services. Pending possible transfer to [facility] as per bedside RN ([facility]). vital signs Vital Sign Date Time Temp Pulse Resp B/P (MAP) Pulse Ox O2 Delivery O2 Flow Rate FiO2 06/06/24 07:30 18 100 Nasal Cannula* 2 28 06/06/24 07:30 92 103/41 (61) 06/06/24 04:00 97.7 97.7 Total Intake and Output 06/05/24 06/05/24 06/06/24 15:00 23:00 07:00 Intake Total 950.00 ml 1181.25 ml 828.75 ml Output Total 1000 ml 1700 ml Balance 950.00 ml 181.25 ml -871.25 ml medications Current Medications Medications Dose Ordered Sig/Jason Route Start Time Stop Time Status Last Admin Dose Admin Ondansetron HCl 4 mg Q4HP PRN IV 05/22/24 15:00 06/06/24 02:47 4 MG Acetaminophen 650 mg Q6HP PRN PO 05/22/24 15:00 05/29/24 21:55 650 MG Citalopram Hydrobromide 20 mg DAILY PO 05/23/24 10:00 06/03/24 09:22 20 MG Pantoprazole Sodium 40 mg DAILY PO 05/23/24 10:06/03/24 09:22 40 MG Hydralazine HCl 10 mg Q6HP PRN IV 05/23/24 05:00 05/24/24 01:34 10 MG Prochlorperazine Edisylate 10 mg Q6HP PRN IV 05/23/24 12:00 06/04/24 12:42 10 MG Atorvastatin Calcium 20 mg DAILY PO 05/24/24 10:00 06/03/24 09:22 20 MG Nortriptyline HCl 50 mg HS PO 05/23/24 22:00 06/05/24 21:48 50 MG Tamsulosin HCl 0.4 mg QPM PO 05/23/24 18:00 06/03/24 17:52 0.4 MG Enteral Nutritional Formula 27.5 gm BIDWM PO 05/27/24 18:00 05/31/24 10:54 27.5 GM Enteral Nutritional Formula 240 ml TIDWM PO 06/01/24 18:00 06/03/24 18:30 240 ML Morphine Sulfate 4 mg Q6HPRN PRN IV 06/02/24 14:30 06/06/24 02:47 4 MG Acetaminophen/ Hydrocodone Bitart 1 tab Q4HPRN PRN PO 06/02/24 14:30 Docusate Calcium 240 mg DAILY PO 06/03/24 12:33 06/03/24 19:44 240 MG Metoprolol Tartrate 10 mg BID PO 06/03/24 22:00 UNV Sennosides 8.6 mg DAILYP PO 06/03/24 12:33 06/03/24 13:52 8.6 MG Duloxetine HCl 60 mg DAILY PO 06/03/24 12:34 06/03/24 13:52 60 MG Metoprolol Tartrate 25 mg BID PO 06/03/24 22:00 Hold 06/03/24 22:43 25 MG Norepinephrine Bitartrate 250 ml @ 3.75 mls/hr Q24H IV 06/04/24 13:30 06/05/24 18:29 18.75 MLS/HR Metronidazole 100 ml @ 100 mls/hr Q8HR IV 06/04/24 15:00 06/05/24 21:49 100 MLS/HR Piperacillin Sod/ Tazobactam Sod 100 ml @ 25 mls/hr Q12HR IV 06/04/24 15:00 06/05/24 21:48 25 MLS/HR Enoxaparin Sodium 100 mg DAILY SC 06/05/24 10:00 06/05/24 11:23 100 MG Sodium Chloride 1,000 ml @ 100 mls/hr Q10H IV 06/05/24 11:00 06/05/24 20:52 100 MLS/HR Metoprolol Tartrate 5 mg Q4HP PRN IV 06/05/24 11:15 Hold laboratory and microbiology Laboratory Tests 06/06/24 04:40 Test 06/06/24 04:40 Range/Units Serum Glucose 103 74-106 mg/dL Assessment/Plan Assessment/Plan Had mechanical fall and found to have hip fracture. S/p ORIF Patient is a 74-year-old gentleman who presented on May 22, 2024 for epigastric pain. It seems that he ate sandwich in this was followed by repeated abdominal pain and vomiting. He has been admitted with small-bowel obstruction. He also was found to have gallstones and gastric outlet obstruction. He has been seen by surgery and GI. He has been having NG tube. Patient does have history of paroxysmal AFib and is on Eliquis as outpatient. On 05/24 2024, the patient was found to have tachyarrhythmia and cardiology was involved for its evaluation and management. Telemetry revealed tachyarrhythmia in the rate of 150s. Tele was in favor of SVT. Patient was attached to the monitor and 6 mg of adenosine was given which resulted in breaking of the tachyarrhythmia inpatient been back to sinus rhythm. As per patient, he usually follows with Cardiology in [facility]. As per patient, he did have angiogram (cardiac catheterization some years ago and was told that it was normal findings). Lying flat in bed and not in acute distress. No JVD. Mucosa is pink and wet. No carotid bruit. No goiter. Lungs are clear to auscultation. At the time of evaluation the patient started to be in tachyarrhythmia and in palpitation. Later, heart rate decreased. No thrill/gallop. Abdomen is soft. Extremities do not reveal edema Past medical history includes atrial fibrillation (on Eliquis as outpatient), DJD, heart failure (diastolic), COPD, hypertension, hyperlipidemia, reported diabetes mellitus, obesity, old history of tonsillectomy and gastric bypass surgery. He is known to have kidney stones. Echocardiogram of January 2020 revealed ejection fraction of 60% and biatrial enlargement Troponin (high sensitive): 19 - 11 TSH: 3.28 CT of the abdomen and pelvis revealed: IMPRESSION: 1. Cholelithiasis with the gallbladder distended. 2. Postop changes to the stomach with a fluid-filled distended stomach and dilated fluid-filled small bowel findings suggest small bowel obstruction. 3. Multiple bilateral nonobstructing renal calculi. 4. Prosthesis in the right hip. Chest x-ray revealed: Frontal chest radiograph demonstrates no acute osseous or superficial soft tissue abnormalities. Enteric tube visualized overlying the plane of the stomach. The trachea is midline. The cardiac silhouette and mediastinum are within normal limits. No pneumothorax, pleural effusions, or consolidations. Partially visualized gaseous distended loops of bowel. Repeat x-ray revealed: IMPRESSION: 1. Left internal jugular catheter in place with the tip at the cavoatrial junction 2. No acute cardiopulmonary disease. HIDA scan reported: IMPRESSION: 1. Findings may reflect chronic cholecystitis, cannot exclude acute cholecystitis due to lack of 30-60 minute images. KUB revealed: IMPRESSION: Findings concerning for small bowel obstruction versus ileus. Repeat KUB revealed: FINDINGS/IMPRESSION: Dilated loops of small bowel with gas and stool visualized in the colon. Findings appear improved compared to prior exam. Repeat KUB revealed: IMPRESSION: 1. There are air-filled dilated small bowel loops. Air and stool is seen within the colon. The findings appear mildly improved comparison to the prior study. The findings fairly stable and May relate to an ileus.. Clinical correlation and continued follow-up is recommended Repeat KUB revealed: Impression: 1. Nonobstructive bowel gas pattern. Gallbladder ultrasound reported: FINDINGS: Examination is limited. The gallbladder appears distended. The gallbladder wall measures 2 mm in thickness, within normal limits. Possible sludge in the gallbladder. Negative reported sonographic valladares's sign. The common bile duct measures 6 mm in diameter, within normal limits. The liver measures at the upper limits of normal in size, at 16.4 cm in craniocaudal dimension. Heterogeneous echotexture of the liver. The pancreas is obscured by bowel gas. The right kidney measures 9.6 cm. There is no hydronephrosis. Limited evaluation of the right kidney. Echogenic focus, possible renal calculus at the midpole measuring 1.4 cm. The patient does have renal calculi on recent CT exam. IMPRESSION: 1. Limited examination as described above. Possible gallbladder sludge and distended gallbladder. No sonographic evidence of acute cholecystitis. 2. Additional nonacute findings as described above. HIDA scan revealed: Impression: 1. Unremarkable hepatobiliary study without evidence of acute cholecystitis. Small bowel x-ray revealed: FINDINGS/IMPRESSION: Initial chronometer assembler and adjuster view of the abdomen and pelvis appears demonstrates no acute process. Enteric tube in the stomach. Minimal contrast residual in the stomach no contrast in the small bowel. Left Hip Xry: FINDINGS/IMPRESSION: There is a displaced and impacted left intertrochanteric fracture. Patient is status post right hip arthroplasty. Renal US revealed IMPRESSION: Bilateral renal nonobstructing calculi. No hydronephrosis bilaterally. Increased echogenicity of the left kidney which may be seen with medical renal disease. The urinary bladder and Babb catheter are not visualized EKG revealed SVT Tele revealed SVT which later transitioned into sinus rhythm Echocardiogram revealed: Technically limited study secondary to poor acoustic windows. Left ventricle: Mild concentric left ventricular hypertrophy was seen. LVEF was 55-60%. Right ventricle was normal size with normal systolic function. Both atria were mildly dilated. Aortic valve was not well visualized. Aortic sclerosis with no stenosis was observed. [id number] aortic insufficiency was observed. Mild mitral/tricuspid regurgitation was seen. Tricuspid valve was not well visualized. Right ventricular systolic pressure was assessed around 25 mm Hg. There was no pericardial effusion. Ascending aorta was 4.5 cm. Patient is a 74-year-old gentleman who presented with abdominal pain and is being managed for small bowel obstruction. He does have history of paroxysmal AFib. Has not been taking his medications regularly and this was followed with tachyarrhythmia. Tachyarrhythmia was in favor of SVT. SVT responded to adenosine Small-bowel obstruction Obesity History of gastric bypass Paroxysmal AFib SVT Status post adenosine management Diabetes mellitus Obesity, morbid Gallstone Renal stone Cardiac suggestion for management: For now, manage on telemetry Follow-up electrolytes and kidney function tests and correct abnormalities Keep potassium above 4 and magnesium above 2 Continue Cardizem Continue metoprolol tartrate Evaluation and management of gallstones/gastric outlet obstruction as per primary team/GI/surgery Long-term continuation of anticoagulation is suggested (for now patient on Lovenox). Further evaluation and management depends on the above and clinical course A total of 55 minutes was spent reviewing the patient record, examining the patient, making a diagnostic and therapeutic plan, discussing this plan with medical personnel, following up on diagnostic studies and following the patient for clinical stability excluding any and all procedures. At least 50% of this time was spent in direct, [id number] contact. Thank you for allowing me to participate in this patient's care. Further recommendations will depend on patient's clinical course. Please do not hesitate to contact me if you have any questions or concerns. This medical document was created using electronic medical record system with [employer] computerized dictation system. Although this document has been carefully reviewed, there may still be some phonetic and typographical errors. These areas are purely typographical due to the imperfection of the software programs, and do not reflect any compromise in the patient's medical care. Dietary Evaluation Review Comments: 1. advance diet as tolerated per MD 2. Consider EN/TPN if Pt remains NPO for 48 hours Expected Outcomes/Goals: 1. Pt will consume >75% estimated needs within 2-3 days Plan discussed with: Patient (Patient and Primary RN) EBENEZER MUÑOZ Jun 06, 2024 07:52
--- NOTE | 2024-06-06 11:24 | DVHPN2 ---
Progress Note Date Seen: Jun 06, 2024 Medical Necessity Reason Pt with a Central, PICC or Fol: No Subjective Review of Systems: GI:Abnormal Other Systems: Patient seen and examined by myself in follow-up today Objective vital signs Vital Sign Date Time Temp Pulse Resp B/P (MAP) Pulse Ox O2 Delivery O2 Flow Rate FiO2 06/06/24 09:59 88 17 102/51 06/06/24 07:30 100 Nasal Cannula* 2 28 06/06/24 04:00 97.7 97.7 Total Intake and Output 06/05/24 06/05/24 06/06/24 15:00 23:00 07:00 Intake Total 950.00 ml 1181.25 ml 828.75 ml Output Total 1000 ml 1700 ml Balance 950.00 ml 181.25 ml -871.25 ml medications Current Medications Medications Dose Ordered Sig/Jason Route Start Time Stop Time Status Last Admin Dose Admin Ondansetron HCl 4 mg Q4HP PRN IV 05/22/24 15:00 06/06/24 02:47 4 MG Acetaminophen 650 mg Q6HP PRN PO 05/22/24 15:00 05/29/24 21:55 650 MG Citalopram Hydrobromide 20 mg DAILY PO 05/23/24 10:00 06/03/24 09:22 20 MG Hydralazine HCl 10 mg Q6HP PRN IV 05/23/24 05:00 05/24/24 01:34 10 MG Prochlorperazine Edisylate 10 mg Q6HP PRN IV 05/23/24 12:00 06/04/24 12:42 10 MG Atorvastatin Calcium 20 mg DAILY PO 05/24/24 10:00 06/03/24 09:22 20 MG Nortriptyline HCl 50 mg HS PO 05/23/24 22:00 06/05/24 21:48 50 MG Tamsulosin HCl 0.4 mg QPM PO 05/23/24 18:00 06/03/24 17:52 0.4 MG Enteral Nutritional Formula 27.5 gm BIDWM PO 05/27/24 18:00 05/31/24 10:54 27.5 GM Enteral Nutritional Formula 240 ml TIDWM PO 06/01/24 18:00 06/03/24 18:30 240 ML Morphine Sulfate 4 mg Q6HPRN PRN IV 06/02/24 14:30 06/06/24 09:29 4 MG Acetaminophen/ Hydrocodone Bitart 1 tab Q4HPRN PRN PO 06/02/24 14:30 Docusate Calcium 240 mg DAILY PO 06/03/24 12:33 06/03/24 19:44 240 MG Metoprolol Tartrate 10 mg BID PO 06/03/24 22:00 UNV Sennosides 8.6 mg DAILYP PO 06/03/24 12:33 06/03/24 13:52 8.6 MG Duloxetine HCl 60 mg DAILY PO 06/03/24 12:34 06/03/24 13:52 60 MG Metoprolol Tartrate 25 mg BID PO 06/03/24 22:00 Hold 06/03/24 22:43 25 MG Norepinephrine Bitartrate 250 ml @ 3.75 mls/hr Q24H IV 06/04/24 13:30 06/05/24 18:29 18.75 MLS/HR Piperacillin Sod/ Tazobactam Sod 100 ml @ 25 mls/hr Q12HR IV 06/04/24 15:00 06/05/24 21:48 25 MLS/HR Enoxaparin Sodium 100 mg DAILY SC 06/05/24 10:00 06/05/24 11:23 100 MG Sodium Chloride 1,000 ml @ 100 mls/hr Q10H IV 06/05/24 11:00 06/06/24 09:01 100 MLS/HR Metoprolol Tartrate 5 mg Q4HP PRN IV 06/05/24 11:15 Hold Pantoprazole Sodium 40 mg DAILY IV 06/06/24 10:00 Magnesium Sulfate/ Dextrose 100 ml @ 100 mls/hr Q1HR IV 06/06/24 11:00 06/06/24 12:59 Potassium Chloride 100 ml @ 50 mls/hr Q2H IV 06/06/24 10:15 06/06/24 14:14 Examination: LUNGS:Normal, CVS:Normal, MSK:Normal laboratory and microbiology Laboratory Tests 06/06/24 04:40 Test 06/06/24 04:40 Range/Units Serum Glucose 103 74-106 mg/dL Microbiology Date/Time Source Procedure Growth Status 06/04/24 19:00 Nose MRSA Screen - Final Complete Problem List/Assessment/Plan Problem List/Assessment/Plan SYBIL secondary to hemodynamic mediated, FeNa < 1% (Cr 1.0 on admission 05/22/24) Dehydration BPH with LUTS Septic shock Leukocytosis Bilateral nonobstructing nephrolithiasis s/p ORIF left hip 05/27 Hypotension Chronic diastolic HF A fib Abdominal pain Small-bowel obstruction on NG suction h/o gastric bypass Hypokalemia Hypomagnesemia REC: Kidney function continues to improve with IV fluid hydration Increased urine output Babb's catheter Strict I&O's Continue IV fluid hydration KCL replacement Magnesium sulfate IV piggyback kidney US reported bilateral nephrolithiasis and echogenic kidney Hold EDWARD inhibitors d/c allopurinol Blood cultures IV Abx Albumin 25 IVPB Will continue to follow Plan discussed with: Patient My Orders My Orders Orders - JON CARRIZALES MD Procedure Category Date Status Time Magnesium Sulfate PHA 06/06/24 In Process 1gm/100ml 11:00 Potassium Chl PHA 06/06/24 In Process 20meq/100ml 10:15 Dietary Evaluation Review Comments: 1. advance diet as tolerated per 2. Consider EN/TPN if Pt remains NPO for 48 hours Expected Outcomes/Goals: 1. Pt will consume >75% estimated needs within 2-3 days JON CARRIZALES MD Jun 06, 2024 11:24
[2024-06-06] MEDS: PANTOPRAZOLE 40 MG/10 ML VIAL INJ IV SCH (11:43)
--- NOTE | 2024-06-06 11:54 | DVHPN2 ---
Progress Note - Dictate Date Seen: Jun 06, 2024 Medical Necessity Reason Pt with a Central, PICC or Fol: No vital signs Vital Sign Date Time Temp Pulse Resp B/P (MAP) Pulse Ox O2 Delivery O2 Flow Rate FiO2 06/06/24 09:59 88 17 102/51 06/06/24 07:30 100 Nasal Cannula* 2 28 06/06/24 04:00 97.7 97.7 Total Intake and Output 06/05/24 06/05/24 06/06/24 15:00 23:00 07:00 Intake Total 950.00 ml 1181.25 ml 828.75 ml Output Total 1000 ml 1700 ml Balance 950.00 ml 181.25 ml -871.25 ml medications Current Medications Medications Dose Ordered Sig/Jason Route Start Time Stop Time Status Last Admin Dose Admin Ondansetron HCl 4 mg Q4HP PRN IV 05/22/24 15:00 06/06/24 02:47 4 MG Acetaminophen 650 mg Q6HP PRN PO 05/22/24 15:00 05/29/24 21:55 650 MG Citalopram Hydrobromide 20 mg DAILY PO 05/23/24 10:00 06/03/24 09:22 20 MG Hydralazine HCl 10 mg Q6HP PRN IV 05/23/24 05:00 05/24/24 01:34 10 MG Prochlorperazine Edisylate 10 mg Q6HP PRN IV 05/23/24 12:00 06/04/24 12:42 10 MG Atorvastatin Calcium 20 mg DAILY PO 05/24/24 10:00 06/03/24 09:22 20 MG Nortriptyline HCl 50 mg HS PO 05/23/24 22:00 06/05/24 21:48 50 MG Tamsulosin HCl 0.4 mg QPM PO 05/23/24 18:00 06/03/24 17:52 0.4 MG Enteral Nutritional Formula 27.5 gm BIDWM PO 05/27/24 18:00 05/31/24 10:54 27.5 GM Enteral Nutritional Formula 240 ml TIDWM PO 06/01/24 18:00 06/03/24 18:30 240 ML Morphine Sulfate 4 mg Q6HPRN PRN IV 06/02/24 14:30 06/06/24 09:29 4 MG Acetaminophen/ Hydrocodone Bitart 1 tab Q4HPRN PRN PO 06/02/24 14:30 Docusate Calcium 240 mg DAILY PO 06/03/24 12:33 06/03/24 19:44 240 MG Metoprolol Tartrate 10 mg BID PO 06/03/24 22:00 UNV Sennosides 8.6 mg DAILYP PO 06/03/24 12:33 06/03/24 13:52 8.6 MG Duloxetine HCl 60 mg DAILY PO 06/03/24 12:34 06/03/24 13:52 60 MG Metoprolol Tartrate 25 mg BID PO 06/03/24 22:00 Hold 06/03/24 22:43 25 MG Norepinephrine Bitartrate 250 ml @ 3.75 mls/hr Q24H IV 06/04/24 13:30 06/05/24 18:29 18.75 MLS/HR Piperacillin Sod/ Tazobactam Sod 100 ml @ 25 mls/hr Q12HR IV 06/04/24 15:00 06/06/24 11:43 25 MLS/HR Enoxaparin Sodium 100 mg DAILY SC 06/05/24 10:00 06/06/24 11:44 100 MG Sodium Chloride 1,000 ml @ 100 mls/hr Q10H IV 06/05/24 11:00 06/06/24 09:01 100 MLS/HR Metoprolol Tartrate 5 mg Q4HP PRN IV 06/05/24 11:15 Hold Pantoprazole Sodium 40 mg DAILY IV 06/06/24 10:00 06/06/24 11:43 40 MG Magnesium Sulfate/ Dextrose 100 ml @ 100 mls/hr Q1HR IV 06/06/24 11:00 06/06/24 12:59 Potassium Chloride 100 ml @ 50 mls/hr Q2H IV 06/06/24 10:15 06/06/24 14:14 objective General Appearance: alert, no distress HEENT: EOMI, PERRLA, normal external inspect of ears, no icterus, no nasal drainage Neck: no carotid bruit, no jugular venous distention (JVD), no lymphadenopathy Chest: normal thorax Respiratory: clear to auscultation, normal air movement Cardiovascular: regular rate and rhythm, no diastolic murmur, no jugular venous distention (JVD), no rub, no systolic murmur Abdominal: soft, no hepatomegaly, no mass, no splenomegaly, no tenderness Genitourinary: grossly normal external Musculoskeletal: no joint tenderness, no swelling Extremities: normal pulses, no calf tenderness, no clubbing, no cyanosis, no edema Skin: no bruising, no jaundice, no rash Neurological: alert, No focal deficit laboratory and microbiology Laboratory Tests 06/06/24 04:40 Test 06/06/24 04:40 Range/Units Serum Glucose 103 74-106 mg/dL Problem List 1. Small bowel obstruction Monitor, surgical consult, GI consult, NPO 2. HLD Monitor 3. Persistent atrial fibrillation Monitor, full dose Lovenox 4. Obesity Monitor 5. Hx gastric bypass Monitor 6. Benign essential HTN Monitor, antihypertensives 7. Gallstones Monitor, surgical consult, GI consult, NPO, HIDA scan 8. Sepsis Monitor 9. Septic Shock Monitor 10. Acute renal failure Monitor, nephrology consult Assessment/Plan Subjective Patient is awake and alert. Objective Patient is more lethargic today. Patient is status post repeat small bowel series. According to RN patient did not receive much contrast because he had multiple episodes of emesis. Patient has a history of Dave-en-Y bypass. Higher level of care for bowel obstruction at bypass site chest x-ray is negative for acute process. SYBIL is resolving. Plan Continue current treatment. Plan for repeat CT of the abdomen and pelvis without contrast. Patient is refusing with contrast. Continue n.p.o. status. Patient is refusing NG tube. Dietary Evaluation Review Comments: 1. advance diet as tolerated per MD 2. Consider EN/TPN if Pt remains NPO for 48 hours Expected Outcomes/Goals: 1. Pt will consume >75% estimated needs within 2-3 days Plan discussed with: Patient, Other TETO CRAMER SPEED OPERATOR Jun 06, 2024 11:54
[2024-06-06] MEDS: POTASSIUM CHL 20MEQ/100ML 100 ML IV SCH (12:02)
--- NOTE | 2024-06-06 13:46 | DVHNC2 ---
Procedure - ULTRASOUND-GUIDED LEFT INTERNAL JUGULAR CENTRAL VENOUS CANNULATION CPT Codes: 11249 (ultrasound guidance) 90215 (insertion of non-tunneled centrally inserted central venous catheter) 57707 (CXR interpretation) DATE:06/05/2024 PHYSICIAN: Priscilla Anderson PREOPERATIVE DIAGNOSIS: Shock POSTOPERATIVE DIAGNOSIS: Shock PROCEDURE PERFORMED: Limited Ultrasound-guided LEFT internal jugular central line placement. ANESTHESIA: 2 mL of 1% lidocaine plain. ESTIMATED BLOOD LOSS: less than 5 mL. SPECIMENS: None. COMPLICATIONS: None. INDICATIONS FOR PROCEDURE: The patient is in need of large bore IV access for administration of fluids, including blood products and vasoactive drugs, possible transvenous cardiac pacing and CVP monitoring for hemodynamic instability. DESCRIPTION OF PROCEDURE IN DETAIL: The patient was lying in the Trendelenburg position with head turned 30 degrees away from the insertion site. The skin was thoroughly sponged with chlorhexidine and allowed to dry. All persons involved were shielded with hair nets, face masks and sterile gowns. With sterile-gloved hands the LEFT neck area was draped with the large disposable sterile field provided in the pre-manufactured kit. The skin and subcutaneous tissues superficial to the LEFT internal jugular vein were anesthetized with 2 mL of 1% lidocaine. The LEFT internal jugular vein was identified on ultrasound from the angle of the mandible down into the supraclavicular fossa using the linear ultrasound probe in the transverse orientation. The carotid artery was identified and avoided utilizing color-flow. The internal jugular vein was then placed in the center of the ultrasound field and compressed for patency. A movement artifact was identified as the needle was advanced through the skin and advanced toward the vessel. A real time hyperechoic signal revealed visualization of vascular needle entry into the lumen as blood was noted to flashback in the syringe. The needle was then held in place while the guide wire was advanced. The needle was then removed. Direct visualization of guide wire location within the vein was noted on ultrasound indicating proper placement and was document in the electronic medical record chart. A skin dilator was advanced over the guidewire and removed, and the triple-lumen catheter was then advanced over the guide wire into proper position. The guide wire was removed and discarded. The ports were aspirated which showed good blood return and then carefully flushed with normal saline. The catheter was stabilized and sutured to the skin with 2-0 silk at 2 anchor points. A sterile bio-patch and dressing was placed over the catheter, including the insertion site. The patient tolerated the procedure well. A chest x-ray was ordered for position confirmation. I reviewed the image immediately after it was taken at bedside. Post-procedure chest x-ray demonstrates the central line in the superior vena and no evidence of any pneumothorax. An image recording of the procedure accompanies the chart. PRISCILLA ANDERSON MD Jun 06, 2024 13:46
[2024-06-06] MEDS: MAGNESIUM SULFATE 1GM/100ML 100 ML IV SCH (14:03)
--- NOTE | 2024-06-06 14:06 | DVHPN2 ---
Progress Note - Dictate Date Seen: Jun 06, 2024 Medical Necessity Reason Pt with a Central, PICC or Fol: Yes The following are medically ne: Central Line, Grewal Catheter Reason for grewal catheter: Strict I&O Subjective Pt seen and examined at bedside On supplemental oxygen Keep o2 sat above 92% Overnight events reviewed. vital signs Vital Sign Date Time Temp Pulse Resp B/P (MAP) Pulse Ox O2 Delivery O2 Flow Rate FiO2 06/06/24 09:59 88 17 102/51 06/06/24 07:30 100 Nasal Cannula* 2 28 06/06/24 04:00 97.7 97.7 Total Intake and Output 06/05/24 06/05/24 06/06/24 15:00 23:00 07:00 Intake Total 950.00 ml 1181.25 ml 828.75 ml Output Total 1000 ml 1700 ml Balance 950.00 ml 181.25 ml -871.25 ml medications Current Medications Medications Dose Ordered Sig/Jason Route Start Time Stop Time Status Last Admin Dose Admin Ondansetron HCl 4 mg Q4HP PRN IV 05/22/24 15:00 06/06/24 02:47 4 MG Acetaminophen 650 mg Q6HP PRN PO 05/22/24 15:00 05/29/24 21:55 650 MG Citalopram Hydrobromide 20 mg DAILY PO 05/23/24 10:00 06/03/24 09:22 20 MG Hydralazine HCl 10 mg Q6HP PRN IV 05/23/24 05:00 05/24/24 01:34 10 MG Prochlorperazine Edisylate 10 mg Q6HP PRN IV 05/23/24 12:00 06/04/24 12:42 10 MG Atorvastatin Calcium 20 mg DAILY PO 05/24/24 10:00 06/03/24 09:22 20 MG Nortriptyline HCl 50 mg HS PO 05/23/24 22:00 06/05/24 21:48 50 MG Tamsulosin HCl 0.4 mg QPM PO 05/23/24 18:00 06/03/24 17:52 0.4 MG Enteral Nutritional Formula 27.5 gm BIDWM PO 05/27/24 18:00 05/31/24 10:54 27.5 GM Enteral Nutritional Formula 240 ml TIDWM PO 06/01/24 18:00 06/03/24 18:30 240 ML Morphine Sulfate 4 mg Q6HPRN PRN IV 06/02/24 14:30 06/06/24 09:29 4 MG Acetaminophen/ Hydrocodone Bitart 1 tab Q4HPRN PRN PO 06/02/24 14:30 Docusate Calcium 240 mg DAILY PO 06/03/24 12:33 06/03/24 19:44 240 MG Metoprolol Tartrate 10 mg BID PO 06/03/24 22:00 UNV Sennosides 8.6 mg DAILYP PO 06/03/24 12:33 06/03/24 13:52 8.6 MG Duloxetine HCl 60 mg DAILY PO 06/03/24 12:34 06/03/24 13:52 60 MG Metoprolol Tartrate 25 mg BID PO 06/03/24 22:00 Hold 06/03/24 22:43 25 MG Norepinephrine Bitartrate 250 ml @ 3.75 mls/hr Q24H IV 06/04/24 13:30 06/05/24 18:29 18.75 MLS/HR Piperacillin Sod/ Tazobactam Sod 100 ml @ 25 mls/hr Q12HR IV 06/04/24 15:00 06/06/24 11:43 25 MLS/HR Enoxaparin Sodium 100 mg DAILY SC 06/05/24 10:00 06/06/24 11:44 100 MG Sodium Chloride 1,000 ml @ 100 mls/hr Q10H IV 06/05/24 11:00 06/06/24 09:01 100 MLS/HR Metoprolol Tartrate 5 mg Q4HP PRN IV 06/05/24 11:15 Hold Pantoprazole Sodium 40 mg DAILY IV 06/06/24 10:00 06/06/24 11:43 40 MG Potassium Chloride 100 ml @ 50 mls/hr Q2H IV 06/06/24 10:15 06/06/24 14:14 06/06/24 12:02 50 MLS/HR objective Gen.: Patient lying in bed in no apparent distress. On supplemental oxygen. Head: Normocephalic, atraumatic. Eyes: EOMI/PERRLA. Ears: Normal hearing. Normal anatomy. Neck/trachea: Trachea midline, supple. Left IJ Central line in place. Nose: Normal external anatomy. Mouth: Moist mucous membranes. Chest: Decreased air entry bilaterally. No wheezing or rhonchi. Cardiovascular: Positive S1, positive S2. Regular rate and rhythm. Abdomen: Positive bowel sounds in all 4 quadrants. Soft, non-tender, non- distended. : Deferred. Rectal: Deferred. Skin: Warm, dry. Intact. Extremities: 2+ radial pulses bilaterally. No lower extremity edema. Neuro: Awake, alert, oriented x3. No gross motor or sensory deficits. Cranial nerves II through XII intact. Gait not assessed. laboratory and microbiology Laboratory Tests 06/06/24 04:40 Test 06/06/24 04:40 Range/Units Serum Glucose 103 74-106 mg/dL Assessment/Plan Impression: Septic shock Acute hypoxic respiratory failure Acute kidney injury Small bowel obstruction Atrial fibrillation Hx of gastric bypass (Dave-en-Y) Obesity, BMI 34.2 Events: Remains on 2 LPM via NC. WBC trended down now within normal limits. Hgb trended down Continue to monitor closely Transfuse if less than 7.0 g/dL. Supplement potassium Sodium 131 Creat trended down to 1.71 Magnesium below normal limits, supplement. Remains On Levophed 6 mcg/min Titrate to keep MAP above 65 mmHg Continue abx: Zosyn/Flagyl Rest of plan as noted below. Plan: S/p central line placement. Needed for administration of pressors. Supplemental oxygen, 2 LPM NC Titrate to keep O2 sats above 92%. Antibiotics Incentive spirometry On pressors for hemodynamic support Levophed 10 mcg/min Titrate to keep mean arterial pressure greater than 65 mmHg. GI recommendations appreciated. WBC trending down. Hemoglobin monitor Monitor renal function. Monitor electrolytes. Supplement as necessary. Monitor ins and outs. Sodium 127 Creatinine trending down. Diet and lifestyle modifications discussed Obesity - complicates all care. DVT prophylaxis. Prognosis: Poor given patient's multiple co-morbidities. Condition: Critical Rest of plan per hospitalist and other consultants. A total of 35 minutes of critical care time was spent reviewing the patient record, examining the patient, making a diagnostic and therapeutic plan, discussing this plan with the medical personnel, following up on diagnostic studies and following the patient for clinical stability excluding any and all procedures. At least 50% of this time was spent in direct, [id number] contact. Thank you S JENNA Mcnamara, for allowing me to participate in this patient's care. Further recommendations will depend on the patient's clinical course. Please do not hesitate to contact me if you have any questions or concerns. This medical document was created using an electronic medical record system with [employer] dictation system. Although these documentations are being carefully reviewed, there may still be some phonetic and typographical changes. The errors are purely typographical, due to imperfection on the software program, and do not reflect any compromise in the patient's medical care Dietary Evaluation Review Comments: 1. advance diet as tolerated per MD 2. Consider EN/TPN if Pt remains NPO for 48 hours Expected Outcomes/Goals: 1. Pt will consume >75% estimated needs within 2-3 days Plan discussed with: Patient, Other (RN, MD) Critical Care Time(min): 35 PRISCILLA CORREA MD Jun 06, 2024 14:06
--- NOTE | 2024-06-06 14:41 | DVH ---
Exam: CT CT AB PEL WO CON-NO ORAL OR IV History: r/o ileus sbo Comparison Study: None available at time of dictation. TECHNIQUE: Multidetector CT of the abdomen was performed from lung bases to pubic symphysis. Imaging was performed without IV contrast. Axial, coronal and sagittal multiplanar reformats were obtained fr om the axial data set by the technologist. Radiation Dose Information: CT Dose: CTDI volume is 25.72 mGy. Dose-length product is 1452.23 mGy*cm FINDINGS: Evaluation of solid organs is limited due to lack of intravenous contrast use. Findings: Lung Bases: Bibasilar areas of linear atelectasis or scarring.. Normal heart size. Scattered coronar y artery calcifications. No pleural or pericardial effusion. Liver: The liver is normal in size. No focal lesions. Gallbladder and Biliary Tree: Decreased distention of the gallbladder but it still contains a gallsto ne. Spleen: Unremarkable Pancreas: The pancreas is grossly normal in appearance. Adrenal Glands: Unremarkable Kidneys: Bilateral renal calculi unchanged from prior study ( 05/22/2024 ), without hydronephrosis. Bladder: Babb catheter in the bladder in the bladder is empty Bowel: The stomach is grossly normal in appearance. Small bowel and colon are normal in caliber and d istribution. Contrast noted in the stomach and dilated small bowel. There is also contrast in the col on. Increased small bowel distention compared to 05/22/2024 , however oral contrast has reached the c olon suggesting this is a partial small bowel obstruction. however the degree of dilatation of the s mall bowel suggests a high-grade partial small bowel obstruction. ( the restricting lesion is creatin g worsening dilatation of the small bowel in a retrograde manner. ) the dilatation of the small bowel is worse compared to 05/22/2024. The appendix is not visualized; however, no secondary findings of ac kayleigh appendicitis identified. Ascites: Absent Lymphadenopathy: No mesenteric, retroperitoneal or periportal lymphadenopathy. Abdominal Wall and Mesentery: Unremarkable. Vasculature: The visualized abdominal aorta is normal in size and caliber. Evaluation of abdominal a nd pelvic vessels is limited due to lack of intravenous contrast. Pelvic Organs: Unremarkable Musculoskeletal: No aggressive focal bony lesions, acute fractures or dislocation. Prostheses in both proximal femurs. Mild compression of L1 Soft tissues: Unremarkable IMPRESSION: 1. Worsening dilatation of the small bowel when compared to 05/22/2024. 2. There is contrast currently in the colon suggesting this is a partial small bowel obstruction cary janet without significant decrease in dilatation of the small bowel the restricting lesion must be sig nificant enough to maintain unimproved retrograde small-bowel dilatation. There is no abnormal thicke melanie of the small bowel or colon. 3. Decreased gallbladder distention however a persistent calcified gallstone is noted. 4. Bilateral renal calculi unchanged with no hydronephrosis Radiation optimization: All CT scans at this facility use at least one of these dose optimization te chniques: automated exposure control mA and/or kV adjustment per patient size (includes targeted exa ms where dose is matched to clinical indication) or iterative reconstruction.
--- NOTE | 2024-06-06 15:51 | DVHPN2 ---
Progress Note - Dictate Date Seen: Jun 06, 2024 Medical Necessity Reason Pt with a Central, PICC or Fol: Yes The following are medically ne: Central Line, Grewal Catheter Reason for grewal catheter: Strict I&O Subjective No new complaints Patient had a small smear of the bowel movement Repeat CT scan suggestive of partial bowel obstruction with increase in dilation of the small bowel vital signs Vital Sign Date Time Temp Pulse Resp B/P (MAP) Pulse Ox O2 Delivery O2 Flow Rate FiO2 06/06/24 09:59 88 17 102/51 06/06/24 07:30 100 Nasal Cannula* 2 28 06/06/24 04:00 97.7 97.7 Total Intake and Output 06/05/24 06/05/24 06/06/24 14:59 22:59 06:59 Intake Total 1000.00 ml 1188.75 ml 965.00 ml Output Total 1000 ml 1700 ml Balance 1000.00 ml 188.75 ml -735.00 ml medications Current Medications Medications Dose Ordered Sig/Jason Route Start Time Stop Time Status Last Admin Dose Admin Ondansetron HCl 4 mg Q4HP PRN IV 05/22/24 15:00 06/06/24 02:47 4 MG Acetaminophen 650 mg Q6HP PRN PO 05/22/24 15:00 05/29/24 21:55 650 MG Citalopram Hydrobromide 20 mg DAILY PO 05/23/24 10:00 06/03/24 09:22 20 MG Hydralazine HCl 10 mg Q6HP PRN IV 05/23/24 05:00 05/24/24 01:34 10 MG Prochlorperazine Edisylate 10 mg Q6HP PRN IV 05/23/24 12:00 06/04/24 12:42 10 MG Atorvastatin Calcium 20 mg DAILY PO 05/24/24 10:00 06/03/24 09:22 20 MG Nortriptyline HCl 50 mg HS PO 05/23/24 22:00 06/05/24 21:48 50 MG Tamsulosin HCl 0.4 mg QPM PO 05/23/24 18:00 06/03/24 17:52 0.4 MG Enteral Nutritional Formula 27.5 gm BIDWM PO 05/27/24 18:00 05/31/24 10:54 27.5 GM Enteral Nutritional Formula 240 ml TIDWM PO 06/01/24 18:00 06/03/24 18:30 240 ML Morphine Sulfate 4 mg Q6HPRN PRN IV 06/02/24 14:30 06/06/24 09:29 4 MG Acetaminophen/ Hydrocodone Bitart 1 tab Q4HPRN PRN PO 06/02/24 14:30 Docusate Calcium 240 mg DAILY PO 06/03/24 12:33 06/03/24 19:44 240 MG Metoprolol Tartrate 10 mg BID PO 06/03/24 22:00 UNV Sennosides 8.6 mg DAILYP PO 06/03/24 12:33 06/03/24 13:52 8.6 MG Duloxetine HCl 60 mg DAILY PO 06/03/24 12:34 06/03/24 13:52 60 MG Metoprolol Tartrate 25 mg BID PO 06/03/24 22:00 Hold 06/03/24 22:43 25 MG Norepinephrine Bitartrate 250 ml @ 3.75 mls/hr Q24H IV 06/04/24 13:30 06/05/24 18:29 18.75 MLS/HR Piperacillin Sod/ Tazobactam Sod 100 ml @ 25 mls/hr Q12HR IV 06/04/24 15:00 06/06/24 11:43 25 MLS/HR Enoxaparin Sodium 100 mg DAILY SC 06/05/24 10:00 06/06/24 11:44 100 MG Sodium Chloride 1,000 ml @ 100 mls/hr Q10H IV 06/05/24 11:00 06/06/24 09:01 100 MLS/HR Metoprolol Tartrate 5 mg Q4HP PRN IV 06/05/24 11:15 Hold Pantoprazole Sodium 40 mg DAILY IV 06/06/24 10:00 06/06/24 11:43 40 MG objective General Appearance: alert, no distress HEENT: EOMI, PERRLA, normal external inspect of ears, no icterus, no nasal drainage Neck: no carotid bruit, no jugular venous distention (JVD), no lymphadenopathy Chest: normal thorax Respiratory: clear to auscultation, normal air movement Cardiovascular: regular rate and rhythm, no diastolic murmur, no jugular venous distention (JVD), no rub, no systolic murmur Abdominal: soft, no hepatomegaly, no mass, no splenomegaly, no tenderness Genitourinary: grossly normal external Musculoskeletal: no joint tenderness, no swelling Extremities: normal pulses, no calf tenderness, no clubbing, no cyanosis, no edema Skin: no bruising, no jaundice, no rash Neurological: alert, No focal deficit laboratory and microbiology Laboratory Tests 06/06/24 04:40 Test 06/06/24 04:40 Range/Units Serum Glucose 103 74-106 mg/dL Problems(with codes): (1) Gastric bypass status for obesity (2) N&V (nausea and vomiting) (3) INTESTINAL OBSTRUCT NOS Prognosis Plan NPO after midnight I have scheduled patient for an endoscopy tomorrow to rule out any gastric outlet obstruction in a patient with previous gastric bypass and rule out anastomotic ulcer Continue IV PPI Surgical follow up and Monitor bowel activity Patient on IV Zosyn and IV PPI Dietary Evaluation Review Comments: 1. advance diet as tolerated per MD 2. Consider EN/TPN if Pt remains NPO for 48 hours Expected Outcomes/Goals: 1. Pt will consume >75% estimated needs within 2-3 days Plan discussed with: Patient, Other (KIRK Nurse) SRINIVASAN ALVARES MD Jun 06, 2024 15:51
--- NOTE | 2024-06-06 22:22 | DVHPN2 ---
Progress Note Date Seen: Jun 06, 2024 Medical Necessity Reason Pt with a Central, PICC or Fol: Yes The following are medically ne: Central Line, Grewal Catheter Reason for grewal catheter: Strict I&O Objective vital signs Vital Sign Date Time Temp Pulse Resp B/P (MAP) Pulse Ox O2 Delivery O2 Flow Rate FiO2 06/06/24 22:00 22 98 Nasal Cannula* 2 28 06/06/24 22:00 86 06/06/24 21:41 120/53 06/06/24 19:30 97.6 97.6 Total Intake and Output 06/05/24 06/05/24 06/06/24 15:00 23:00 07:00 Intake Total 950.00 ml 1181.25 ml 932.50 ml Output Total 1000 ml 1700 ml Balance 950.00 ml 181.25 ml -767.50 ml medications Current Medications Medications Dose Ordered Sig/Jason Route Start Time Stop Time Status Last Admin Dose Admin Ondansetron HCl 4 mg Q4HP PRN IV 05/22/24 15:00 06/06/24 02:47 4 MG Acetaminophen 650 mg Q6HP PRN PO 05/22/24 15:00 05/29/24 21:55 650 MG Citalopram Hydrobromide 20 mg DAILY PO 05/23/24 10:00 06/03/24 09:22 20 MG Hydralazine HCl 10 mg Q6HP PRN IV 05/23/24 05:00 05/24/24 01:34 10 MG Prochlorperazine Edisylate 10 mg Q6HP PRN IV 05/23/24 12:00 06/04/24 12:42 10 MG Atorvastatin Calcium 20 mg DAILY PO 05/24/24 10:00 06/03/24 09:22 20 MG Nortriptyline HCl 50 mg HS PO 05/23/24 22:00 06/05/24 21:48 50 MG Tamsulosin HCl 0.4 mg QPM PO 05/23/24 18:00 06/03/24 17:52 0.4 MG Enteral Nutritional Formula 27.5 gm BIDWM PO 05/27/24 18:00 05/31/24 10:54 27.5 GM Enteral Nutritional Formula 240 ml TIDWM PO 06/01/24 18:00 06/03/24 18:30 240 ML Morphine Sulfate 4 mg Q6HPRN PRN IV 06/02/24 14:30 06/06/24 21:41 4 MG Acetaminophen/ Hydrocodone Bitart 1 tab Q4HPRN PRN PO 06/02/24 14:30 Docusate Calcium 240 mg DAILY PO 06/03/24 12:33 06/03/24 19:44 240 MG Metoprolol Tartrate 10 mg BID PO 06/03/24 22:00 UNV Sennosides 8.6 mg DAILYP PO 06/03/24 12:33 06/03/24 13:52 8.6 MG Duloxetine HCl 60 mg DAILY PO 06/03/24 12:34 06/03/24 13:52 60 MG Metoprolol Tartrate 25 mg BID PO 06/03/24 22:00 Hold 06/03/24 22:43 25 MG Norepinephrine Bitartrate 250 ml @ 3.75 mls/hr Q24H IV 06/04/24 13:30 06/06/24 19:35 11.25 MLS/HR Piperacillin Sod/ Tazobactam Sod 100 ml @ 25 mls/hr Q12HR IV 06/04/24 15:00 06/06/24 21:30 25 MLS/HR Enoxaparin Sodium 100 mg DAILY SC 06/05/24 10:00 06/06/24 11:44 100 MG Sodium Chloride 1,000 ml @ 100 mls/hr Q10H IV 06/05/24 11:00 06/06/24 09:01 100 MLS/HR Metoprolol Tartrate 5 mg Q4HP PRN IV 06/05/24 11:15 Hold Pantoprazole Sodium 40 mg DAILY IV 06/06/24 10:00 06/06/24 11:43 40 MG laboratory and microbiology Laboratory Tests 06/06/24 04:40 Test 06/06/24 04:40 Range/Units Serum Glucose 103 74-106 mg/dL Microbiology Date/Time Source Procedure Growth Status 06/04/24 19:00 Nose MRSA Screen - Final Complete Problem List/Assessment/Plan Problem List/Assessment/Plan AFEBRILE VSS ABD SOFT NON TENDER N/V LESS RELATED TO FLAGYL BM + FLATUS + R/O GASTROPARESIS /GASTRIC OUTLET OBSTRUCTION S/P GASTRIC BYPASS F/UP GI FOR POSSIBLE EGD PT REFUSED GASTROGRAFIN STUDY INSTRUCTED NURSE AT BEDSIDE Plan discussed with: Patient My Orders My Orders Orders - MARTHA ALVARES MD Procedure Category Date Status Time Pantoprazole PHA 06/06/24 In Process (Protonix) 10:00 Dietary Evaluation Review Comments: 1. advance diet as tolerated per MD 2. Consider EN/TPN if Pt remains NPO for 48 hours Expected Outcomes/Goals: 1. Pt will consume >75% estimated needs within 2-3 days MARTHA ALVARES MD Jun 06, 2024 22:22
[2024-06-07] VITALS (87 sets, daily range): BP systolic 78–133; BP diastolic 37–70; PULSE 72–136; RESP 12–34; TEMP 97.7–98.3; O2SAT 83–100
[2024-06-07 07:01] LABS: Hemoglobin 11.2 g/dL (13.5-17.5)
[2024-06-07 07:02] LABS: Hematocrit 33.7 % (41.0-53.0); Mean Corpuscular Hemoglobin 29.9 pg (28.0-32.0); Mean Corpuscular Hgb Conc. 33.3 g/dL (32.0-36.0); Mean Corpuscular Volume 89.9 fL (80.0-100.0); Platelet Count (auto) 504 10^3/uL (140-450); Red Blood Cells 3.74 10^6/uL (4.5-5.90); Red Cell Distribution Width 16.8 % (11.8-14.3); White Blood Cell 7.2 10^3/uL (4.4-10.8)
[2024-06-07 07:13] LABS: Basophils % (manual) 0 (0.0-2.0); Blast Cells 0; Eosinophils % (manual) 0 (0-7); Metamyelocytes % 0; Myelocytes % 0; Promyelocytes % 0; Reactive Lymphocytes 0
[2024-06-07 07:20] LABS: INR 1.09 (0.9-1.15); Partial Thromboplastin Time 29.6 SEC (24.5-34.5); Prothrombin Time 11.5 sec (9.3-11.8)
[2024-06-07 07:47] LABS: Anion Gap 10 (5-15); Calcium 9.2 mg/dL (8.7-10.4); Carbon Dioxide 22 mmol/L (20-31); Chloride 101 mmol/L (98-107); Potassium 3.9 mmol/L (3.5-5.1); Sodium 133 mmol/L (136-145)
--- NOTE | 2024-06-07 07:50 | DVHPN2 ---
Progress Note - Dictate Date Seen: Jun 07, 2024 Medical Necessity Reason Pt with a Central, PICC or Fol: Yes The following are medically ne: Central Line, Grewal Catheter Reason for grewal catheter: Strict I&O vital signs Vital Sign Date Time Temp Pulse Resp B/P (MAP) Pulse Ox O2 Delivery O2 Flow Rate FiO2 06/07/24 06:45 112 22 90/54 (66) 98 06/07/24 06:00 Nasal Cannula* 2 28 06/07/24 04:45 98.1 98.1 Total Intake and Output 06/06/24 06/06/24 06/07/24 15:00 23:00 07:00 Intake Total 907.50 ml 897.30 ml 878.4 ml Output Total 2400 ml 600 ml Balance 907.50 ml -1502.70 ml 278.4 ml medications Current Medications Medications Dose Ordered Sig/Jason Route Start Time Stop Time Status Last Admin Dose Admin Ondansetron HCl 4 mg Q4HP PRN IV 05/22/24 15:00 06/06/24 02:47 4 MG Acetaminophen 650 mg Q6HP PRN PO 05/22/24 15:00 05/29/24 21:55 650 MG Citalopram Hydrobromide 20 mg DAILY PO 05/23/24 10:00 06/03/24 09:22 20 MG Hydralazine HCl 10 mg Q6HP PRN IV 05/23/24 05:00 05/24/24 01:34 10 MG Prochlorperazine Edisylate 10 mg Q6HP PRN IV 05/23/24 12:00 06/04/24 12:42 10 MG Atorvastatin Calcium 20 mg DAILY PO 05/24/24 10:00 06/03/24 09:22 20 MG Nortriptyline HCl 50 mg HS PO 05/23/24 22:00 06/05/24 21:48 50 MG Tamsulosin HCl 0.4 mg QPM PO 05/23/24 18:00 06/03/24 17:52 0.4 MG Enteral Nutritional Formula 27.5 gm BIDWM PO 05/27/24 18:00 05/31/24 10:54 27.5 GM Enteral Nutritional Formula 240 ml TIDWM PO 06/01/24 18:00 06/03/24 18:30 240 ML Morphine Sulfate 4 mg Q6HPRN PRN IV 06/02/24 14:30 06/07/24 04:00 4 MG Acetaminophen/ Hydrocodone Bitart 1 tab Q4HPRN PRN PO 06/02/24 14:30 Docusate Calcium 240 mg DAILY PO 06/03/24 12:33 06/03/24 19:44 240 MG Metoprolol Tartrate 10 mg BID PO 06/03/24 22:00 UNV Sennosides 8.6 mg DAILYP PO 06/03/24 12:33 06/03/24 13:52 8.6 MG Duloxetine HCl 60 mg DAILY PO 06/03/24 12:34 06/03/24 13:52 60 MG Metoprolol Tartrate 25 mg BID PO 06/03/24 22:00 Hold 06/03/24 22:43 25 MG Norepinephrine Bitartrate 250 ml @ 3.75 mls/hr Q24H IV 06/04/24 13:30 06/06/24 19:35 11.25 MLS/HR Piperacillin Sod/ Tazobactam Sod 100 ml @ 25 mls/hr Q12HR IV 06/04/24 15:00 06/06/24 21:30 25 MLS/HR Enoxaparin Sodium 100 mg DAILY SC 06/05/24 10:00 06/06/24 11:44 100 MG Sodium Chloride 1,000 ml @ 100 mls/hr Q10H IV 06/05/24 11:00 06/07/24 02:58 100 MLS/HR Metoprolol Tartrate 5 mg Q4HP PRN IV 06/05/24 11:15 Hold Pantoprazole Sodium 40 mg DAILY IV 06/06/24 10:00 06/06/24 11:43 40 MG laboratory and microbiology Laboratory Tests 06/07/24 05:09 Test 06/07/24 05:09 Range/Units Serum Glucose Pending Assessment/Plan Had hypotension and transferred to [facility]. On pressure support. On IV BB/CCB Had mechanical fall and found to have hip fracture. S/p ORIF Patient is a 74-year-old gentleman who presented on May 22, 2024 for epigastric pain. It seems that he ate sandwich in this was followed by repeated abdominal pain and vomiting. He has been admitted with small-bowel obstruction. He also was found to have gallstones and gastric outlet obstruction. He has been seen by surgery and GI. He has been having NG tube. Patient does have history of paroxysmal AFib and is on Eliquis as outpatient. On 05/24 2024, the patient was found to have tachyarrhythmia and cardiology was involved for its evaluation and management. Telemetry revealed tachyarrhythmia in the rate of 150s. Tele was in favor of SVT. Patient was attached to the monitor and 6 mg of adenosine was given which resulted in breaking of the tachyarrhythmia inpatient been back to sinus rhythm. As per patient, he usually follows with Cardiology in [facility]. As per patient, he did have angiogram (cardiac catheterization some years ago and was told that it was normal findings). Lying flat in bed and not in acute distress. No JVD. Mucosa is pink and wet. No carotid bruit. No goiter. Lungs are clear to auscultation. At the time of evaluation the patient started to be in tachyarrhythmia and in palpitation. Later, heart rate decreased. No thrill/gallop. Abdomen is soft. Extremities do not reveal edema Past medical history includes atrial fibrillation (on Eliquis as outpatient), DJD, heart failure (diastolic), COPD, hypertension, hyperlipidemia, reported diabetes mellitus, obesity, old history of tonsillectomy and gastric bypass surgery. He is known to have kidney stones. Echocardiogram of January 2020 revealed ejection fraction of 60% and biatrial enlargement Troponin (high sensitive): 19 - 11 TSH: 3.28 CT of the abdomen and pelvis revealed: IMPRESSION: 1. Cholelithiasis with the gallbladder distended. 2. Postop changes to the stomach with a fluid-filled distended stomach and dilated fluid-filled small bowel findings suggest small bowel obstruction. 3. Multiple bilateral nonobstructing renal calculi. 4. Prosthesis in the right hip. Chest x-ray revealed: Frontal chest radiograph demonstrates no acute osseous or superficial soft tissue abnormalities. Enteric tube visualized overlying the plane of the stomach. The trachea is midline. The cardiac silhouette and mediastinum are within normal limits. No pneumothorax, pleural effusions, or consolidations. Partially visualized gaseous distended loops of bowel. HIDA scan reported: IMPRESSION: 1. Findings may reflect chronic cholecystitis, cannot exclude acute cholecystitis due to lack of 30-60 minute images. KUB revealed: IMPRESSION: Findings concerning for small bowel obstruction versus ileus. Repeat KUB revealed: FINDINGS/IMPRESSION: Dilated loops of small bowel with gas and stool visualized in the colon. Findings appear improved compared to prior exam. Repeat KUB revealed: IMPRESSION: 1. There are air-filled dilated small bowel loops. Air and stool is seen within the colon. The findings appear mildly improved comparison to the prior study. The findings fairly stable and May relate to an ileus.. Clinical correlation and continued follow-up is recommended Repeat KUB revealed: Impression: 1. Nonobstructive bowel gas pattern. Gallbladder ultrasound reported: FINDINGS: Examination is limited. The gallbladder appears distended. The gallbladder wall measures 2 mm in thickness, within normal limits. Possible sludge in the gallbladder. Negative reported sonographic valladares's sign. The common bile duct measures 6 mm in diameter, within normal limits. The liver measures at the upper limits of normal in size, at 16.4 cm in craniocaudal dimension. Heterogeneous echotexture of the liver. The pancreas is obscured by bowel gas. The right kidney measures 9.6 cm. There is no hydronephrosis. Limited evaluation of the right kidney. Echogenic focus, possible renal calculus at the midpole measuring 1.4 cm. The patient does have renal calculi on recent CT exam. IMPRESSION: 1. Limited examination as described above. Possible gallbladder sludge and distended gallbladder. No sonographic evidence of acute cholecystitis. 2. Additional nonacute findings as described above. HIDA scan revealed: Impression: 1. Unremarkable hepatobiliary study without evidence of acute cholecystitis. Left Hip Xry: FINDINGS/IMPRESSION: There is a displaced and impacted left intertrochanteric fracture. Patient is status post right hip arthroplasty. EKG revealed SVT Tele revealed SVT which later transitioned into sinus rhythm Echocardiogram revealed: Technically limited study secondary to poor acoustic windows. Left ventricle: Mild concentric left ventricular hypertrophy was seen. LVEF was 55-60%. Right ventricle was normal size with normal systolic function. Both atria were mildly dilated. Aortic valve was not well visualized. Aortic sclerosis with no stenosis was observed. [id number] aortic insufficiency was observed. Mild mitral/tricuspid regurgitation was seen. Tricuspid valve was not well visualized. Right ventricular systolic pressure was assessed around 25 mm Hg. There was no pericardial effusion. Ascending aorta was 4.5 cm. Patient is a 74-year-old gentleman who presented with abdominal pain and is being managed for small bowel obstruction. He does have history of paroxysmal AFib. Has not been taking his medications regularly and this was followed with tachyarrhythmia. Tachyarrhythmia was in favor of SVT. SVT responded to adenosine Small-bowel obstruction Obesity History of gastric bypass Paroxysmal AFib SVT Status post adenosine management Diabetes mellitus Obesity, morbid Gallstone Renal stone Cardiac suggestion for management: For now, manage in [facility] Follow-up electrolytes and kidney function tests and correct abnormalities Keep potassium above 4 and magnesium above 2 Continue Cardizem Continue metoprolol tartrate Evaluation and management of gallstones/gastric outlet obstruction as per primary team/GI/surgery Long-term continuation of anticoagulation is suggested (for now patient on Lovenox). .. Cardiac-felix, the patient is monitored to his patient for low risk endoscopy procedure. Cardiac-felix, you can proceed with endoscopy under appropriate intra and postoperative hemodynamic monitoring. Further evaluation and management depends on the above and clinical course A total of 55 minutes was spent reviewing the patient record, examining the patient, making a diagnostic and therapeutic plan, discussing this plan with medical personnel, following up on diagnostic studies and following the patient for clinical stability excluding any and all procedures. At least 50% of this time was spent in direct, [id number] contact. Thank you for allowing me to participate in this patient's care. Further recommendations will depend on patient's clinical course. Please do not hesitate to contact me if you have any questions or concerns. This medical document was created using electronic medical record system with [employer] computerized dictation system. Although this document has been carefully reviewed, there may still be some phonetic and typographical errors. These areas are purely typographical due to the imperfection of the software programs, and do not reflect any compromise in the patient's medical care. Dietary Evaluation Review Comments: 1. advance diet as tolerated per MD 2. Consider EN/TPN if Pt remains NPO for 48 hours Expected Outcomes/Goals: 1. Pt will consume >75% estimated needs within 2-3 days Plan discussed with: Other (nurse) BROOKS PRITCHARD MD Jun 07, 2024 07:50
[2024-06-07 07:53] LABS: BUN/Creatinine Ratio 27.5 (10.0-20.0); Blood Urea Nitrogen 33 mg/dL (9-23); Glucose 94 mg/dL (74-106)
[2024-06-07] MEDS: DICYCLOMINE HCL 10 MG CAP PO ONE (08:20)
[2024-06-07] MEDS ORDERED: HYDROmorphone HCL 2 MG/ML VL/or syr IV PRN (09:15)
[2024-06-07 09:16] LABS: Band Neutrophils % (manual) 14; Lymphocytes % (manual) 9 (10.0-50.0); Monocytes % (manual) 4 (0-12); Platelet Estimate Increased
[2024-06-07 09:17] LABS: Hepatitis B Surface Antigen Negative (Negative)
[2024-06-07] MEDS: SODIUM CHLORIDE 0.9% 1,000 ML IV ONE (09:33)
[2024-06-07 09:38] LABS: Hepatitis C Antibody Negative (Negative)
--- NOTE | 2024-06-07 09:40 | DVHPN2 ---
Progress Note - Dictate Date Seen: Jun 07, 2024 Medical Necessity Reason Pt with a Central, PICC or Fol: Yes The following are medically ne: Central Line, Grewal Catheter Reason for grewal catheter: Strict I&O Subjective Patient was tentatively scheduled for an endoscopy today but it has been deferred Patient is complaining of increasing abdominal cramping and pain. He is refusing an NG tube Patient did have a bowel movement yesterday after small-bowel series and CT abdomen Patient is requesting hydration and more pain medications Patient has mild tachycardia and he is on low-dose pressors Repeat CT scan suggestive of partial bowel obstruction with increase in dilation of the small bowel vital signs Vital Sign Date Time Temp Pulse Resp B/P (MAP) Pulse Ox O2 Delivery O2 Flow Rate FiO2 06/07/24 08:00 97.8 112 26 115/56 (75) 99 97.8 06/07/24 06:00 Nasal Cannula* 2 28 Total Intake and Output 06/06/24 06/06/24 06/07/24 15:00 23:00 07:00 Intake Total 907.50 ml 897.30 ml 878.4 ml Output Total 2400 ml 600 ml Balance 907.50 ml -1502.70 ml 278.4 ml medications Current Medications Medications Dose Ordered Sig/Jason Route Start Time Stop Time Status Last Admin Dose Admin Ondansetron HCl 4 mg Q4HP PRN IV 05/22/24 15:00 06/06/24 02:47 4 MG Acetaminophen 650 mg Q6HP PRN PO 05/22/24 15:00 05/29/24 21:55 650 MG Citalopram Hydrobromide 20 mg DAILY PO 05/23/24 10:00 06/03/24 09:22 20 MG Hydralazine HCl 10 mg Q6HP PRN IV 05/23/24 05:00 05/24/24 01:34 10 MG Prochlorperazine Edisylate 10 mg Q6HP PRN IV 05/23/24 12:00 06/04/24 12:42 10 MG Atorvastatin Calcium 20 mg DAILY PO 05/24/24 10:00 06/03/24 09:22 20 MG Nortriptyline HCl 50 mg HS PO 05/23/24 22:00 06/05/24 21:48 50 MG Tamsulosin HCl 0.4 mg QPM PO 05/23/24 18:00 06/03/24 17:52 0.4 MG Enteral Nutritional Formula 27.5 gm BIDWM PO 05/27/24 18:00 05/31/24 10:54 27.5 GM Enteral Nutritional Formula 240 ml TIDWM PO 06/01/24 18:00 06/03/24 18:30 240 ML Acetaminophen/ Hydrocodone Bitart 1 tab Q4HPRN PRN PO 06/02/24 14:30 Docusate Calcium 240 mg DAILY PO 06/03/24 12:33 06/03/24 19:44 240 MG Metoprolol Tartrate 10 mg BID PO 06/03/24 22:00 UNV Sennosides 8.6 mg DAILYP PO 06/03/24 12:33 06/03/24 13:52 8.6 MG Duloxetine HCl 60 mg DAILY PO 06/03/24 12:34 06/03/24 13:52 60 MG Metoprolol Tartrate 25 mg BID PO 06/03/24 22:00 Hold 06/03/24 22:43 25 MG Norepinephrine Bitartrate 250 ml @ 3.75 mls/hr Q24H IV 06/04/24 13:30 06/06/24 19:35 11.25 MLS/HR Piperacillin Sod/ Tazobactam Sod 100 ml @ 25 mls/hr Q12HR IV 06/04/24 15:00 06/06/24 21:30 25 MLS/HR Enoxaparin Sodium 100 mg DAILY SC 06/05/24 10:00 06/06/24 11:44 100 MG Sodium Chloride 1,000 ml @ 100 mls/hr Q10H IV 06/05/24 11:00 06/07/24 08:19 100 MLS/HR Metoprolol Tartrate 5 mg Q4HP PRN IV 06/05/24 11:15 Hold Pantoprazole Sodium 40 mg DAILY IV 06/06/24 10:00 06/06/24 11:43 40 MG Morphine Sulfate 4 mg Q3HPRN PRN IV 06/07/24 09:30 objective General Appearance: alert, mild to moderate distress HEENT: EOMI, PERRLA, normal external inspect of ears, no icterus, no nasal drainage Neck: no carotid bruit, no jugular venous distention (JVD), no lymphadenopathy Chest: normal thorax Respiratory: clear to auscultation, normal air movement Cardiovascular: regular rate and rhythm, no diastolic murmur, no jugular venous distention (JVD), no rub, no systolic murmur Abdominal: soft, no hepatomegaly, no mass, no splenomegaly, mild diffuse tenderness and no bowel sounds heard today Genitourinary: grossly normal external Musculoskeletal: no joint tenderness, no swelling Extremities: normal pulses, no calf tenderness, no clubbing, no cyanosis, no edema Skin: no bruising, no jaundice, no rash Neurological: alert, No focal deficit laboratory and microbiology Laboratory Tests 06/07/24 05:09 Test 06/07/24 05:09 Range/Units Serum Glucose 94 74-106 mg/dL Problems(with codes): (1) INTESTINAL OBSTRUCT NOS (2) N&V (nausea and vomiting) (3) Hypotension (4) Wound of left leg (5) Gastric bypass status for obesity Prognosis Plan Because of patient's clinical deterioration today I will defer or cancel endoscopy Surgical consult has been notified Repeat KUB and abdominal x-ray Check lactic acid NPO Patient is refusing NG tube IV antibiotics and IV hydration and continue IV TPN Dietary Evaluation Review Comments: 1. advance diet as tolerated per MD 2. Consider EN/TPN if Pt remains NPO for 48 hours Expected Outcomes/Goals: 1. Pt will consume >75% estimated needs within 2-3 days Plan discussed with: Patient, Other (Nurse Pat and Dr. Jeremiah Alvares) SRINIVASAN ALVARES MD Jun 07, 2024 09:40
--- NOTE | 2024-06-07 10:04 | DVH ---
CHEST RADIOGRAPH Indication:R/O PNEUMONIA Technique: Single frontal view of the chest was obtained COMPARISON: XY CHEST XRAY 1 VIEW on DOS: 06/05/24, XY CHEST PORTABLE on DOS: 05/23/24, CHEST PORTABLE o n DOS: 02/20/20 FINDINGS: Lines and Tubes: Left central venous catheter in satisfactory position. Lungs: Clear Pleura: No effusion. No pneumothorax. Cardiomediastinal contours: Unremarkable Bones: Unremarkable IMPRESSION: No acute disease.
--- NOTE | 2024-06-07 10:05 | DVH ---
Date: 06/07/2024 09:21 AM Examination: XY KUB ABDOMEN SINGLE VIEW History: R/O NECROTIC BOWEL Comparison: XY KUB ABDOMEN SINGLE VIEW on DOS: 06/03/24, XY KUB ABDOMEN SINGLE VIEW on DOS: 05/29/24, X Y KUB ABDOMEN SINGLE VIEW on DOS: 05/28/24, XY KUB ABDOMEN SINGLE VIEW on DOS: 05/25/24, XY KUB ABDOMEN SINGLE VIEW on DOS: 05/24/24 TECHNIQUE: Frontal views of the abdomen was obtained. FINDINGS: Bowel gas pattern is unremarkable. Contrast: Small-bowel. No abnormal dilatation. There is no free air. The lung bases are unremarkable. No acute osseous abnormality identified. IMPRESSION: 1. Nonobstructive bowel gas pattern. 2. No abnormal dilatation 3. No free air 4. Bipolar right hip prosthesis and internal fixation prosthesis in the left hip.
[2024-06-07] MEDS: MORPHINE SULFATE 4 MG/ML SYR/VIAL IV PRN (10:16)
[2024-06-07] MEDS: dilTIAZem 25 MG/5 ML VIAL IV SCH ×2 (12:00→21:44)
[2024-06-07] MEDS: D5W/SOD CHLO 0.9% 1,000 ML IV SCH (13:15)
[2024-06-07] MEDS ORDERED: TPN PER PHARMACY 0 ML IV SCH (13:30)
--- NOTE | 2024-06-07 13:44 | DVHPN2 ---
Progress Note Date Seen: Jun 07, 2024 Medical Necessity Reason Pt with a Central, PICC or Fol: Yes The following are medically ne: Central Line, Grewal Catheter Reason for grewal catheter: Strict I&O Objective vital signs Vital Sign Date Time Temp Pulse Resp B/P (MAP) Pulse Ox O2 Delivery O2 Flow Rate FiO2 06/07/24 13:23 112 20 110/58 06/07/24 12:00 98.3 96 98.3 06/07/24 06:00 Nasal Cannula* 2 28 Total Intake and Output 06/06/24 06/06/24 06/07/24 15:00 23:00 07:00 Intake Total 907.50 ml 897.30 ml 878.4 ml Output Total 2400 ml 600 ml Balance 907.50 ml -1502.70 ml 278.4 ml medications Current Medications Medications Dose Ordered Sig/Jason Route Start Time Stop Time Status Last Admin Dose Admin Ondansetron HCl 4 mg Q4HP PRN IV 05/22/24 15:00 06/06/24 02:47 4 MG Acetaminophen 650 mg Q6HP PRN PO 05/22/24 15:00 05/29/24 21:55 650 MG Citalopram Hydrobromide 20 mg DAILY PO 05/23/24 10:00 06/03/24 09:22 20 MG Hydralazine HCl 10 mg Q6HP PRN IV 05/23/24 05:00 05/24/24 01:34 10 MG Prochlorperazine Edisylate 10 mg Q6HP PRN IV 05/23/24 12:00 06/04/24 12:42 10 MG Atorvastatin Calcium 20 mg DAILY PO 05/24/24 10:00 06/03/24 09:22 20 MG Nortriptyline HCl 50 mg HS PO 05/23/24 22:00 06/05/24 21:48 50 MG Tamsulosin HCl 0.4 mg QPM PO 05/23/24 18:00 06/03/24 17:52 0.4 MG Enteral Nutritional Formula 27.5 gm BIDWM PO 05/27/24 18:00 05/31/24 10:54 27.5 GM Enteral Nutritional Formula 240 ml TIDWM PO 06/01/24 18:00 06/03/24 18:30 240 ML Acetaminophen/ Hydrocodone Bitart 1 tab Q4HPRN PRN PO 06/02/24 14:30 Docusate Calcium 240 mg DAILY PO 06/03/24 12:33 06/03/24 19:44 240 MG Metoprolol Tartrate 10 mg BID PO 06/03/24 22:00 UNV Sennosides 8.6 mg DAILYP PO 06/03/24 12:33 06/03/24 13:52 8.6 MG Duloxetine HCl 60 mg DAILY PO 06/03/24 12:34 06/03/24 13:52 60 MG Metoprolol Tartrate 25 mg BID PO 06/03/24 22:00 Hold 06/03/24 22:43 25 MG Norepinephrine Bitartrate 250 ml @ 3.75 mls/hr Q24H IV 06/04/24 13:30 06/06/24 19:35 11.25 MLS/HR Piperacillin Sod/ Tazobactam Sod 100 ml @ 25 mls/hr Q12HR IV 06/04/24 15:00 06/07/24 10:14 25 MLS/HR Enoxaparin Sodium 100 mg DAILY SC 06/05/24 10:00 06/07/24 10:08 100 MG Metoprolol Tartrate 5 mg Q4HP PRN IV 06/05/24 11:15 Hold Pantoprazole Sodium 40 mg DAILY IV 06/06/24 10:00 06/07/24 10:07 40 MG Morphine Sulfate 4 mg Q3HPRN PRN IV 06/07/24 09:30 06/07/24 13:23 4 MG Diltiazem HCl 10 mg Q6HR IV 06/07/24 12:00 Dextrose/Sodium Chloride 1,000 ml @ 100 mls/hr Q10H IV 06/07/24 13:15 UNV Amino Acids 0 ml @ 0 mls/hr PER PHARMACY IV 06/07/24 13:30 UNV laboratory and microbiology Laboratory Tests 06/07/24 05:09 Test 06/07/24 05:09 Range/Units Serum Glucose 94 74-106 mg/dL Microbiology Date/Time Source Procedure Growth Status 06/04/24 19:00 Nose MRSA Screen - Final Complete Problem List/Assessment/Plan Problem List/Assessment/Plan AFEBRILE DEHYDRATED ON VASOPRESSOR TRENDING DOWN ABD SOFT DISTENDED UPPER ABD TENDER RLQ N/V LESS RELATED TO FLAGYL NO BM FLATUS + EGD ON HOLD PT REFUSED GASTROGRAFIN STUDY INSTRUCTED WBC WNL LACTATE WNL KUB NO FREE AIR TRANSFER TO HIGH LEVEL OF CARE KWAKUJANNA BOOTH CONSIDERING TRANSFER PT AWARE AND AGREES NURSE AT BEDSIDE Plan discussed with: Patient My Orders My Orders Orders - MARTHA ALVARES MD Procedure Category Date Status Time Chest Portable XY 06/07/24 Resulted 09:13 Kub Abdomen Single XY 06/07/24 Resulted View 09:13 Morphine Sulfate PHA 06/07/24 In Process Injection 09:30 Tpn Per Pharmacy PHA 06/07/24 Logged 13:30 Dietary Evaluation Review Comments: 1. advance diet as tolerated per MD 2. Consider EN/TPN if Pt remains NPO for 48 hours Expected Outcomes/Goals: 1. Pt will consume >75% estimated needs within 2-3 days MARTHA ALVARES MD Jun 07, 2024 13:44
[2024-06-07] MEDS ORDERED: DEXTROSE (50%) 50ML SYRG IV SCH (14:15)
--- NOTE | 2024-06-07 16:04 | DVHPN2 ---
Progress Note - Dictate Date Seen: Jun 07, 2024 Medical Necessity Reason Pt with a Central, PICC or Fol: Yes The following are medically ne: Central Line, Grewal Catheter Reason for grewal catheter: Strict I&O vital signs Vital Sign Date Time Temp Pulse Resp B/P (MAP) Pulse Ox O2 Delivery O2 Flow Rate FiO2 06/07/24 13:55 114/70 06/07/24 13:23 112 20 06/07/24 12:00 98.3 96 98.3 06/07/24 08:00 Nasal Cannula* 2 28 Total Intake and Output 06/06/24 06/06/24 06/07/24 15:00 23:00 07:00 Intake Total 907.50 ml 897.30 ml 878.4 ml Output Total 2400 ml 600 ml Balance 907.50 ml -1502.70 ml 278.4 ml medications Current Medications Medications Dose Ordered Sig/Jason Route Start Time Stop Time Status Last Admin Dose Admin Ondansetron HCl 4 mg Q4HP PRN IV 05/22/24 15:00 06/06/24 02:47 4 MG Acetaminophen 650 mg Q6HP PRN PO 05/22/24 15:00 05/29/24 21:55 650 MG Citalopram Hydrobromide 20 mg DAILY PO 05/23/24 10:00 06/03/24 09:22 20 MG Hydralazine HCl 10 mg Q6HP PRN IV 05/23/24 05:00 05/24/24 01:34 10 MG Prochlorperazine Edisylate 10 mg Q6HP PRN IV 05/23/24 12:00 06/04/24 12:42 10 MG Atorvastatin Calcium 20 mg DAILY PO 05/24/24 10:00 06/03/24 09:22 20 MG Nortriptyline HCl 50 mg HS PO 05/23/24 22:00 06/05/24 21:48 50 MG Tamsulosin HCl 0.4 mg QPM PO 05/23/24 18:00 06/03/24 17:52 0.4 MG Enteral Nutritional Formula 27.5 gm BIDWM PO 05/27/24 18:00 05/31/24 10:54 27.5 GM Enteral Nutritional Formula 240 ml TIDWM PO 06/01/24 18:00 06/03/24 18:30 240 ML Acetaminophen/ Hydrocodone Bitart 1 tab Q4HPRN PRN PO 06/02/24 14:30 Docusate Calcium 240 mg DAILY PO 06/03/24 12:33 06/03/24 19:44 240 MG Metoprolol Tartrate 10 mg BID PO 06/03/24 22:00 UNV Sennosides 8.6 mg DAILYP PO 06/03/24 12:33 06/03/24 13:52 8.6 MG Duloxetine HCl 60 mg DAILY PO 06/03/24 12:34 06/03/24 13:52 60 MG Metoprolol Tartrate 25 mg BID PO 06/03/24 22:00 Hold 06/03/24 22:43 25 MG Norepinephrine Bitartrate 250 ml @ 3.75 mls/hr Q24H IV 06/04/24 13:30 06/06/24 19:35 11.25 MLS/HR Piperacillin Sod/ Tazobactam Sod 100 ml @ 25 mls/hr Q12HR IV 06/04/24 15:00 06/07/24 10:14 25 MLS/HR Enoxaparin Sodium 100 mg DAILY SC 06/05/24 10:00 06/07/24 10:08 100 MG Metoprolol Tartrate 5 mg Q4HP PRN IV 06/05/24 11:15 Hold Pantoprazole Sodium 40 mg DAILY IV 06/06/24 10:00 06/07/24 10:07 40 MG Morphine Sulfate 4 mg Q3HPRN PRN IV 06/07/24 09:30 06/07/24 13:23 4 MG Diltiazem HCl 10 mg Q6HR IV 06/07/24 12:00 Dextrose/Sodium Chloride 1,000 ml @ 100 mls/hr Q10H IV 06/07/24 13:15 Amino Acids 0 ml @ 0 mls/hr PER PHARMACY IV 06/07/24 13:30 Diagnostic Test (Pha) 1 strip Q6HR 06/07/24 18:00 Insulin Human Regular FOLLOW SLIDING SCALE Q6HR SC 06/07/24 18:00 Dextrose 50 ml UD IV 06/07/24 14:15 objective General Appearance: alert, no distress HEENT: EOMI, PERRLA, normal external inspect of ears, no icterus, no nasal drainage Neck: no carotid bruit, no jugular venous distention (JVD), no lymphadenopathy Chest: normal thorax Respiratory: clear to auscultation, normal air movement Cardiovascular: regular rate and rhythm, no diastolic murmur, no jugular venous distention (JVD), no rub, no systolic murmur Abdominal: soft, no hepatomegaly, no mass, no splenomegaly, no tenderness Genitourinary: grossly normal external Musculoskeletal: no joint tenderness, no swelling Extremities: normal pulses, no calf tenderness, no clubbing, no cyanosis, no edema Skin: no bruising, no jaundice, no rash Neurological: alert, No focal deficit laboratory and microbiology Laboratory Tests 06/07/24 05:09 Test 06/07/24 05:09 Range/Units Serum Glucose 94 74-106 mg/dL Problem List 1. Small bowel obstruction Monitor, surgical consult, GI consult, NPO 2. HLD Monitor 3. Persistent atrial fibrillation Monitor, full dose Lovenox 4. Obesity Monitor 5. Hx gastric bypass Monitor 6. Benign essential HTN Monitor, antihypertensives 7. Gallstones Monitor, surgical consult, GI consult, NPO, HIDA scan 8. Sepsis Monitor 9. Septic Shock Monitor 10. Acute renal failure Monitor, nephrology consult Assessment/Plan Subjective Patient is awake and alert. Objective Patient possibly has necrotic bowel presumably at the anastomosis site. Patient was seen by GI as well as general surgery. EGD was cancelled today due to patient's clinical instability. Patient received a fluid bolus for tachycardia. Heart rate is slightly improved. Patient remains on vasopressors for blood pressure support. Plan Transfer to higher level of care for possible ischemic bowel with necrosis. Continue antibiotics. Plan for discharge and transfer once patient receives a bed. Dietary Evaluation Review Comments: 1. advance diet as tolerated per MD 2. Consider EN/TPN if Pt remains NPO for 48 hours Expected Outcomes/Goals: 1. Pt will consume >75% estimated needs within 2-3 days Plan discussed with: Patient, Other TETO CRAMER NP Jun 07, 2024 16:04
[2024-06-07] MEDS: InsuLIN REG 1unit/0.01ml Soln (100units/ml) SC SCH (17:42)
[2024-06-07] MEDS: ACCU-CHEK COMFORT CURVE STRIP VI SCH (17:42)
--- NOTE | 2024-06-07 19:29 | DVHPN2 ---
Progress Note - Dictate Date Seen: Jun 07, 2024 Medical Necessity Reason Pt with a Central, PICC or Fol: Yes The following are medically ne: Central Line, Grewal Catheter Reason for grewal catheter: Strict I&O Subjective Pt seen and examined at bedside On room air. Overnight events reviewed. vital signs Vital Sign Date Time Temp Pulse Resp B/P (MAP) Pulse Ox O2 Delivery O2 Flow Rate FiO2 06/07/24 18:00 115 22 121/70 (87) 86 06/07/24 18:00 Nasal Cannula* 2 28 06/07/24 16:00 97.7 97.7 Total Intake and Output 06/06/24 06/06/24 06/07/24 15:00 23:00 07:00 Intake Total 907.50 ml 897.30 ml 878.4 ml Output Total 2400 ml 600 ml Balance 907.50 ml -1502.70 ml 278.4 ml medications Current Medications Medications Dose Ordered Sig/Jason Route Start Time Stop Time Status Last Admin Dose Admin Ondansetron HCl 4 mg Q4HP PRN IV 05/22/24 15:00 06/06/24 02:47 4 MG Acetaminophen 650 mg Q6HP PRN PO 05/22/24 15:00 05/29/24 21:55 650 MG Citalopram Hydrobromide 20 mg DAILY PO 05/23/24 10:00 06/03/24 09:22 20 MG Hydralazine HCl 10 mg Q6HP PRN IV 05/23/24 05:00 05/24/24 01:34 10 MG Prochlorperazine Edisylate 10 mg Q6HP PRN IV 05/23/24 12:00 06/04/24 12:42 10 MG Atorvastatin Calcium 20 mg DAILY PO 05/24/24 10:00 06/03/24 09:22 20 MG Nortriptyline HCl 50 mg HS PO 05/23/24 22:00 06/05/24 21:48 50 MG Tamsulosin HCl 0.4 mg QPM PO 05/23/24 18:00 06/03/24 17:52 0.4 MG Enteral Nutritional Formula 27.5 gm BIDWM PO 05/27/24 18:00 05/31/24 10:54 27.5 GM Enteral Nutritional Formula 240 ml TIDWM PO 06/01/24 18:00 06/03/24 18:30 240 ML Acetaminophen/ Hydrocodone Bitart 1 tab Q4HPRN PRN PO 06/02/24 14:30 Docusate Calcium 240 mg DAILY PO 06/03/24 12:33 06/03/24 19:44 240 MG Metoprolol Tartrate 10 mg BID PO 06/03/24 22:00 UNV Sennosides 8.6 mg DAILYP PO 06/03/24 12:33 06/03/24 13:52 8.6 MG Duloxetine HCl 60 mg DAILY PO 06/03/24 12:34 06/03/24 13:52 60 MG Metoprolol Tartrate 25 mg BID PO 06/03/24 22:00 Hold 06/03/24 22:43 25 MG Norepinephrine Bitartrate 250 ml @ 3.75 mls/hr Q24H IV 06/04/24 13:30 06/06/24 19:35 11.25 MLS/HR Piperacillin Sod/ Tazobactam Sod 100 ml @ 25 mls/hr Q12HR IV 06/04/24 15:00 06/07/24 10:14 25 MLS/HR Enoxaparin Sodium 100 mg DAILY SC 06/05/24 10:00 06/07/24 10:08 100 MG Metoprolol Tartrate 5 mg Q4HP PRN IV 06/05/24 11:15 Hold Pantoprazole Sodium 40 mg DAILY IV 06/06/24 10:00 06/07/24 10:07 40 MG Morphine Sulfate 4 mg Q3HPRN PRN IV 06/07/24 09:30 06/07/24 13:23 4 MG Diltiazem HCl 10 mg Q6HR IV 06/07/24 12:00 06/07/24 16:20 10 MG Dextrose/Sodium Chloride 1,000 ml @ 100 mls/hr Q10H IV 06/07/24 13:15 06/07/24 13:15 100 MLS/HR Amino Acids 0 ml @ 0 mls/hr PER PHARMACY IV 06/07/24 13:30 Diagnostic Test (Pha) 1 strip Q6HR 06/07/24 18:00 Insulin Human Regular FOLLOW SLIDING SCALE Q6HR SC 06/07/24 18:00 Dextrose 50 ml UD IV 06/07/24 14:15 objective Gen.: Patient lying in bed in no apparent distress. On room air. Head: Normocephalic, atraumatic. Eyes: EOMI/PERRLA. Ears: Normal hearing. Normal anatomy. Neck/trachea: Trachea midline, supple. Left IJ Central line in place. Nose: Normal external anatomy. Mouth: Moist mucous membranes. Chest: Decreased air entry bilaterally. No wheezing or rhonchi. Cardiovascular: Positive S1, positive S2. Regular rate and rhythm. Abdomen: Positive bowel sounds in all 4 quadrants. Soft, non-tender, non- distended. : Deferred. Rectal: Deferred. Skin: Warm, dry. Intact. Extremities: 2+ radial pulses bilaterally. No lower extremity edema. Neuro: Awake, alert, oriented x3. No gross motor or sensory deficits. Cranial nerves II through XII intact. Gait not assessed. laboratory and microbiology Laboratory Tests 06/07/24 05:09 Test 06/07/24 05:09 Range/Units Serum Glucose 94 74-106 mg/dL Assessment/Plan Impression: Septic shock Acute hypoxic respiratory failure Acute kidney injury Small bowel obstruction Atrial fibrillation Hx of gastric bypass ([id number]) Obesity, BMI 34.2 Events: On room air. No respiratory distress. EGD today. Patient c/o abdominal pain. Continue abx: Zosyn Remains on Levophed 6 mcg/min Titrate to keep MAP above 65 mmHg WBC within normal limits. Hgb trending up Continue to monitor closely Transfuse if less than 7.0 g/dL. Monitor renal function Creatinine trending down Potassium at goal Sodium 133 Check mag Rest of plan as noted below. Plan: S/p central line placement. Needed for administration of pressors. On room air. Antibiotics Incentive spirometry On pressors for hemodynamic support Titrate to keep mean arterial pressure greater than 65 mmHg. GI recommendations appreciated. WBC trending down. Hemoglobin monitor Monitor renal function. Monitor electrolytes. Supplement as necessary. Monitor ins and outs. Creatinine trending down. Diet and lifestyle modifications discussed Obesity - complicates all care. DVT prophylaxis. Prognosis: Poor given patient's multiple co-morbidities. Condition: Critical Rest of plan per hospitalist and other consultants. A total of 35 minutes of critical care time was spent reviewing the patient record, examining the patient, making a diagnostic and therapeutic plan, discussing this plan with the medical personnel, following up on diagnostic studies and following the patient for clinical stability excluding any and all procedures. At least 50% of this time was spent in direct, [id number] contact. Thank you S JENNA Mcnamara, for allowing me to participate in this patient's care. Further recommendations will depend on the patient's clinical course. Please do not hesitate to contact me if you have any questions or concerns. This medical document was created using an electronic medical record system with [email or web address] dictation system. Although these documentations are being carefully reviewed, there may still be some phonetic and typographical changes. The errors are purely typographical, due to imperfection on the software program, and do not reflect any compromise in the patient's medical care Dietary Evaluation Review Comments: 1. advance diet as tolerated per MD 2. Consider EN/TPN if Pt remains NPO for 48 hours Expected Outcomes/Goals: 1. Pt will consume >75% estimated needs within 2-3 days Plan discussed with: Other (NIRAV Stewart) Critical Care Time(min): 35 PRISCILLA CORREA MD Jun 07, 2024 19:28
--- NOTE | 2024-06-07 19:58 | DVHPN2 ---
Progress Note Date Seen: Jun 07, 2024 Medical Necessity Reason Pt with a Central, PICC or Fol: Yes The following are medically ne: Central Line, Grewal Catheter Reason for grewal catheter: Strict I&O Subjective Patient reports: Other (events noted) Review of Systems: Deferred Objective vital signs Vital Sign Date Time Temp Pulse Resp B/P (MAP) Pulse Ox O2 Delivery O2 Flow Rate FiO2 06/07/24 19:00 113 27 96/70 (79) 99 06/07/24 18:00 Nasal Cannula* 2 28 06/07/24 16:00 97.7 97.7 Total Intake and Output 06/06/24 06/06/24 06/07/24 15:00 23:00 07:00 Intake Total 907.50 ml 897.30 ml 878.4 ml Output Total 2400 ml 600 ml Balance 907.50 ml -1502.70 ml 278.4 ml medications Current Medications Medications Dose Ordered Sig/Jason Route Start Time Stop Time Status Last Admin Dose Admin Ondansetron HCl 4 mg Q4HP PRN IV 05/22/24 15:00 06/06/24 02:47 4 MG Acetaminophen 650 mg Q6HP PRN PO 05/22/24 15:00 05/29/24 21:55 650 MG Citalopram Hydrobromide 20 mg DAILY PO 05/23/24 10:00 06/03/24 09:22 20 MG Hydralazine HCl 10 mg Q6HP PRN IV 05/23/24 05:00 05/24/24 01:34 10 MG Prochlorperazine Edisylate 10 mg Q6HP PRN IV 05/23/24 12:00 06/04/24 12:42 10 MG Atorvastatin Calcium 20 mg DAILY PO 05/24/24 10:00 06/03/24 09:22 20 MG Nortriptyline HCl 50 mg HS PO 05/23/24 22:00 06/05/24 21:48 50 MG Tamsulosin HCl 0.4 mg QPM PO 05/23/24 18:00 06/03/24 17:52 0.4 MG Enteral Nutritional Formula 27.5 gm BIDWM PO 05/27/24 18:00 05/31/24 10:54 27.5 GM Enteral Nutritional Formula 240 ml TIDWM PO 06/01/24 18:00 06/03/24 18:30 240 ML Acetaminophen/ Hydrocodone Bitart 1 tab Q4HPRN PRN PO 06/02/24 14:30 Docusate Calcium 240 mg DAILY PO 06/03/24 12:33 06/03/24 19:44 240 MG Metoprolol Tartrate 10 mg BID PO 06/03/24 22:00 UNV Sennosides 8.6 mg DAILYP PO 06/03/24 12:33 06/03/24 13:52 8.6 MG Duloxetine HCl 60 mg DAILY PO 06/03/24 12:34 06/03/24 13:52 60 MG Metoprolol Tartrate 25 mg BID PO 06/03/24 22:00 Hold 06/03/24 22:43 25 MG Norepinephrine Bitartrate 250 ml @ 3.75 mls/hr Q24H IV 06/04/24 13:30 06/06/24 19:35 11.25 MLS/HR Piperacillin Sod/ Tazobactam Sod 100 ml @ 25 mls/hr Q12HR IV 06/04/24 15:00 06/07/24 10:14 25 MLS/HR Enoxaparin Sodium 100 mg DAILY SC 06/05/24 10:00 06/07/24 10:08 100 MG Metoprolol Tartrate 5 mg Q4HP PRN IV 06/05/24 11:15 Hold Pantoprazole Sodium 40 mg DAILY IV 06/06/24 10:00 06/07/24 10:07 40 MG Morphine Sulfate 4 mg Q3HPRN PRN IV 06/07/24 09:30 06/07/24 13:23 4 MG Diltiazem HCl 10 mg Q6HR IV 06/07/24 12:00 06/07/24 16:20 10 MG Dextrose/Sodium Chloride 1,000 ml @ 100 mls/hr Q10H IV 06/07/24 13:15 06/07/24 13:15 100 MLS/HR Amino Acids 0 ml @ 0 mls/hr PER PHARMACY IV 06/07/24 13:30 Diagnostic Test (Pha) 1 strip Q6HR 06/07/24 18:00 Insulin Human Regular FOLLOW SLIDING SCALE Q6HR SC 06/07/24 18:00 Dextrose 50 ml UD IV 06/07/24 14:15 Examination: GENERAL:Normal, CVS:Abnormal, MSK:Abnormal, NEURO:Normal laboratory and microbiology Laboratory Tests 06/07/24 05:09 Test 06/07/24 05:09 Range/Units Serum Glucose 94 74-106 mg/dL Microbiology Date/Time Source Procedure Growth Status 06/04/24 19:00 Nose MRSA Screen - Final Complete Problem List/Assessment/Plan Problem List/Assessment/Plan SYBIL secondary to hemodynamic mediated, FeNa < 1% (Cr 1.0 on admission 05/22/24) Dehydration BPH with LUTS Septic shock Leukocytosis Bilateral nonobstructing nephrolithiasis s/p ORIF left hip 05/27 Hypotension Chronic diastolic HF A fib Abdominal pain Small-bowel obstruction on NG suction h/o gastric bypass Hypokalemia Hypomagnesemia REC: Kidney function continues to improve with IV fluid hydration--switch to D5NS as pt NPO kidney US reported bilateral nephrolithiasis and echogenic kidney Hold EDWARD inhibitors Plan discussed with: Other My Orders My Orders Orders - PRISCA DON MD Procedure Category Date Status Time D5w/Sod Chlo 0.9% PHA 06/07/24 In Process (D5w Ns 0.9%) 13:15 Dietary Evaluation Review Comments: 1. advance diet as tolerated per 2. Consider EN/TPN if Pt remains NPO for 48 hours Expected Outcomes/Goals: 1. Pt will consume >75% estimated needs within 2-3 days PRISCA DON MD Jun 07, 2024 19:58
[2024-06-07] MEDS: AMINO ACID INFUSION IN D10W 1,000 ML IV ONE (20:12)
[2024-06-08] VITALS (42 sets, daily range): BP systolic 82–151; BP diastolic 42–75; PULSE 85–125; RESP 14–27; TEMP 97.3–100.8; O2SAT 84–100
[2024-06-08 06:38] LABS: INR 1.13 (0.9-1.15); Prothrombin Time 11.9 sec (9.3-11.8)
--- NOTE | 2024-06-08 06:40 | DVHPN2 ---
Progress Note - Dictate Date Seen: Jun 08, 2024 Medical Necessity Reason Pt with a Central, PICC or Fol: Yes The following are medically ne: Central Line, Grewal Catheter Reason for grewal catheter: Strict I&O vital signs Vital Sign Date Time Temp Pulse Resp B/P (MAP) Pulse Ox O2 Delivery O2 Flow Rate FiO2 06/08/24 05:17 88 19 118/54 06/08/24 03:00 85 06/08/24 02:00 Nasal Cannula* 2 28 06/08/24 00:00 98.4 98.4 Total Intake and Output 06/07/24 06/07/24 06/08/24 15:00 23:00 07:00 Intake Total 2878.45 ml 1047.8 ml 631 ml Output Total 325 ml Balance 2878.45 ml 722.8 ml 631 ml medications Current Medications Medications Dose Ordered Sig/Jason Route Start Time Stop Time Status Last Admin Dose Admin Ondansetron HCl 4 mg Q4HP PRN IV 05/22/24 15:00 06/06/24 02:47 4 MG Acetaminophen 650 mg Q6HP PRN PO 05/22/24 15:00 05/29/24 21:55 650 MG Citalopram Hydrobromide 20 mg DAILY PO 05/23/24 10:00 06/03/24 09:22 20 MG Hydralazine HCl 10 mg Q6HP PRN IV 05/23/24 05:00 05/24/24 01:34 10 MG Prochlorperazine Edisylate 10 mg Q6HP PRN IV 05/23/24 12:00 06/04/24 12:42 10 MG Atorvastatin Calcium 20 mg DAILY PO 05/24/24 10:00 06/03/24 09:22 20 MG Nortriptyline HCl 50 mg HS PO 05/23/24 22:00 06/05/24 21:48 50 MG Tamsulosin HCl 0.4 mg QPM PO 05/23/24 18:00 06/03/24 17:52 0.4 MG Enteral Nutritional Formula 27.5 gm BIDWM PO 05/27/24 18:00 05/31/24 10:54 27.5 GM Enteral Nutritional Formula 240 ml TIDWM PO 06/01/24 18:00 06/03/24 18:30 240 ML Acetaminophen/ Hydrocodone Bitart 1 tab Q4HPRN PRN PO 06/02/24 14:30 Docusate Calcium 240 mg DAILY PO 06/03/24 12:33 06/03/24 19:44 240 MG Metoprolol Tartrate 10 mg BID PO 06/03/24 22:00 UNV Sennosides 8.6 mg DAILYP PO 06/03/24 12:33 06/03/24 13:52 8.6 MG Duloxetine HCl 60 mg DAILY PO 06/03/24 12:34 06/03/24 13:52 60 MG Metoprolol Tartrate 25 mg BID PO 06/03/24 22:00 Hold 06/03/24 22:43 25 MG Norepinephrine Bitartrate 250 ml @ 3.75 mls/hr Q24H IV 06/04/24 13:30 06/06/24 19:35 11.25 MLS/HR Piperacillin Sod/ Tazobactam Sod 100 ml @ 25 mls/hr Q12HR IV 06/04/24 15:00 06/07/24 21:41 25 MLS/HR Enoxaparin Sodium 100 mg DAILY SC 06/05/24 10:00 06/07/24 10:08 100 MG Metoprolol Tartrate 5 mg Q4HP PRN IV 06/05/24 11:15 Hold Pantoprazole Sodium 40 mg DAILY IV 06/06/24 10:00 06/07/24 10:07 40 MG Morphine Sulfate 4 mg Q3HPRN PRN IV 06/07/24 09:30 06/08/24 05:17 4 MG Dextrose/Sodium Chloride 1,000 ml @ 100 mls/hr Q10H IV 06/07/24 13:15 06/07/24 23:22 100 MLS/HR Amino Acids 0 ml @ 0 mls/hr PER PHARMACY IV 06/07/24 13:30 Diagnostic Test (Pha) 1 strip Q6HR 06/07/24 18:00 06/07/24 23:34 1 STRIP Insulin Human Regular FOLLOW SLIDING SCALE Q6HR SC 06/07/24 18:00 06/07/24 23:43 4 UNITS Dextrose 50 ml UD IV 06/07/24 14:15 Diltiazem HCl 10 mg Q6H IV 06/07/24 22:00 06/08/24 04:36 10 MG laboratory and microbiology Laboratory Tests 06/07/24 05:09 Test 06/08/24 04:48 Range/Units Serum Glucose Pending Assessment/Plan Had hypotension and transferred to [facility]. On pressure support. On IV BB/CCB Had mechanical fall and found to have hip fracture. S/p ORIF Patient is a 74-year-old gentleman who presented on May 22, 2024 for epigastric pain. It seems that he ate sandwich in this was followed by repeated abdominal pain and vomiting. He has been admitted with small-bowel obstruction. He also was found to have gallstones and gastric outlet obstruction. He has been seen by surgery and GI. He has been having NG tube. Patient does have history of paroxysmal AFib and is on Eliquis as outpatient. On 05/24 2024, the patient was found to have tachyarrhythmia and cardiology was involved for its evaluation and management. Telemetry revealed tachyarrhythmia in the rate of 150s. Tele was in favor of SVT. Patient was attached to the monitor and 6 mg of adenosine was given which resulted in breaking of the tachyarrhythmia inpatient been back to sinus rhythm. As per patient, he usually follows with Cardiology in [facility]. As per patient, he did have angiogram (cardiac catheterization some years ago and was told that it was normal findings). Lying flat in bed and not in acute distress. No JVD. Mucosa is pink and wet. No carotid bruit. No goiter. Lungs are clear to auscultation. At the time of evaluation the patient started to be in tachyarrhythmia and in palpitation. Later, heart rate decreased. No thrill/gallop. Abdomen is soft. Extremities do not reveal edema Past medical history includes atrial fibrillation (on Eliquis as outpatient), DJD, heart failure (diastolic), COPD, hypertension, hyperlipidemia, reported diabetes mellitus, obesity, old history of tonsillectomy and gastric bypass surgery. He is known to have kidney stones. Echocardiogram of January 2020 revealed ejection fraction of 60% and biatrial enlargement Troponin (high sensitive): 19 - 11 TSH: 3.28 CT of the abdomen and pelvis revealed: IMPRESSION: 1. Cholelithiasis with the gallbladder distended. 2. Postop changes to the stomach with a fluid-filled distended stomach and dilated fluid-filled small bowel findings suggest small bowel obstruction. 3. Multiple bilateral nonobstructing renal calculi. 4. Prosthesis in the right hip. Chest x-ray revealed: Frontal chest radiograph demonstrates no acute osseous or superficial soft tissue abnormalities. Enteric tube visualized overlying the plane of the stomach. The trachea is midline. The cardiac silhouette and mediastinum are within normal limits. No pneumothorax, pleural effusions, or consolidations. Partially visualized gaseous distended loops of bowel. HIDA scan reported: IMPRESSION: 1. Findings may reflect chronic cholecystitis, cannot exclude acute cholecystitis due to lack of 30-60 minute images. KUB revealed: IMPRESSION: Findings concerning for small bowel obstruction versus ileus. Repeat KUB revealed: FINDINGS/IMPRESSION: Dilated loops of small bowel with gas and stool visualized in the colon. Findings appear improved compared to prior exam. Repeat KUB revealed: IMPRESSION: 1. There are air-filled dilated small bowel loops. Air and stool is seen within the colon. The findings appear mildly improved comparison to the prior study. The findings fairly stable and May relate to an ileus.. Clinical correlation and continued follow-up is recommended Repeat KUB revealed: Impression: 1. Nonobstructive bowel gas pattern. Gallbladder ultrasound reported: FINDINGS: Examination is limited. The gallbladder appears distended. The gallbladder wall measures 2 mm in thickness, within normal limits. Possible sludge in the gallbladder. Negative reported sonographic valladares's sign. The common bile duct measures 6 mm in diameter, within normal limits. The liver measures at the upper limits of normal in size, at 16.4 cm in craniocaudal dimension. Heterogeneous echotexture of the liver. The pancreas is obscured by bowel gas. The right kidney measures 9.6 cm. There is no hydronephrosis. Limited evaluation of the right kidney. Echogenic focus, possible renal calculus at the midpole measuring 1.4 cm. The patient does have renal calculi on recent CT exam. IMPRESSION: 1. Limited examination as described above. Possible gallbladder sludge and distended gallbladder. No sonographic evidence of acute cholecystitis. 2. Additional nonacute findings as described above. HIDA scan revealed: Impression: 1. Unremarkable hepatobiliary study without evidence of acute cholecystitis. Left Hip Xry: FINDINGS/IMPRESSION: There is a displaced and impacted left intertrochanteric fracture. Patient is status post right hip arthroplasty. EKG revealed SVT Tele revealed SVT which later transitioned into sinus rhythm Echocardiogram revealed: Technically limited study secondary to poor acoustic windows. Left ventricle: Mild concentric left ventricular hypertrophy was seen. LVEF was 55-60%. Right ventricle was normal size with normal systolic function. Both atria were mildly dilated. Aortic valve was not well visualized. Aortic sclerosis with no stenosis was observed. [id number] aortic insufficiency was observed. Mild mitral/tricuspid regurgitation was seen. Tricuspid valve was not well visualized. Right ventricular systolic pressure was assessed around 25 mm Hg. There was no pericardial effusion. Ascending aorta was 4.5 cm. Patient is a 74-year-old gentleman who presented with abdominal pain and is being managed for small bowel obstruction. He does have history of paroxysmal AFib. Has not been taking his medications regularly and this was followed with tachyarrhythmia. Tachyarrhythmia was in favor of SVT. SVT responded to adenosine Small-bowel obstruction Obesity History of gastric bypass Paroxysmal AFib SVT Status post adenosine management Diabetes mellitus Obesity, morbid Gallstone Renal stone Cardiac suggestion for management: For now, manage in [facility] Follow-up electrolytes and kidney function tests and correct abnormalities Keep potassium above 4 and magnesium above 2 Continue Cardizem Continue metoprolol tartrate Evaluation and management of gallstones/gastric outlet obstruction as per primary team/GI/surgery Long-term continuation of anticoagulation is suggested (for now patient on Lovenox). .. Cardiac-felix, the patient is monitored to his patient for low risk endoscopy procedure. Cardiac-felix, you can proceed with endoscopy under appropriate intra and postoperative hemodynamic monitoring. Further evaluation and management depends on the above and clinical course A total of 55 minutes was spent reviewing the patient record, examining the patient, making a diagnostic and therapeutic plan, discussing this plan with medical personnel, following up on diagnostic studies and following the patient for clinical stability excluding any and all procedures. At least 50% of this time was spent in direct, [id number] contact. Thank you for allowing me to participate in this patient's care. Further recommendations will depend on patient's clinical course. Please do not hesitate to contact me if you have any questions or concerns. This medical document was created using electronic medical record system with [employer] dictation system. Although this document has been carefully reviewed, there may still be some phonetic and typographical errors. These areas are purely typographical due to the imperfection of the software programs, and do not reflect any compromise in the patient's medical care. Dietary Evaluation Review Comments: 1. advance diet as tolerated per MD 2. Consider EN/TPN if Pt remains NPO for 48 hours Expected Outcomes/Goals: 1. Pt will consume >75% estimated needs within 2-3 days Plan discussed with: Other (nurse) BROOKS PRITCHARD MD Jun 08, 2024 06:40
[2024-06-08 06:56] LABS: Alanine Aminotransferase 14 U/L (7-40); Alkaline Phosphatase 79 U/L (46-116); Anion Gap 7 (5-15); Aspartate Aminotransferase 11 U/L (13-40); BUN/Creatinine Ratio 29.1 (10.0-20.0); Blood Urea Nitrogen 32 mg/dL (9-23); Calcium 9.4 mg/dL (8.7-10.4); Carbon Dioxide 26 mmol/L (20-31); Chloride 104 mmol/L (98-107); Glucose 117 mg/dL (74-106); Potassium 3.7 mmol/L (3.5-5.1); Sodium 137 mmol/L (136-145); Triglycerides 83 mg/dL (< 150)
[2024-06-08 06:57] LABS: Bilirubin, Total 0.7 mg/dL (0.2-1.0); Phosphorus 1.9 mg/dL (2.4-5.1); Total Protein 5.3 g/dL (5.7-8.2)
[2024-06-08] MEDS ORDERED: fentaNYL CITRATE 5 ML ONE (12:09)
[2024-06-08] MEDS ORDERED: MIDAZOLAM HCL 2MG/2ML 2ml VIAL (1mg/ml) ONE (12:09)
--- NOTE | 2024-06-08 12:15 | DVHPN2 ---
Progress Note - Dictate Date Seen: Jun 08, 2024 Medical Necessity Reason Pt with a Central, PICC or Fol: Yes The following are medically ne: Central Line, Grewal Catheter Reason for grewal catheter: Strict I&O vital signs Vital Sign Date Time Temp Pulse Resp B/P (MAP) Pulse Ox O2 Delivery O2 Flow Rate FiO2 06/08/24 10:01 90 15 118/55 (76) 99 06/08/24 10:00 Nasal Cannula* 2 28 06/08/24 08:00 97.3 97.3 Total Intake and Output 06/07/24 06/07/24 06/08/24 15:00 23:00 07:00 Intake Total 2878.45 ml 1047.8 ml 1195 ml Output Total 325 ml 450 ml Balance 2878.45 ml 722.8 ml 745 ml medications Current Medications Medications Dose Ordered Sig/Jason Route Start Time Stop Time Status Last Admin Dose Admin Ondansetron HCl 4 mg Q4HP PRN IV 05/22/24 15:00 06/06/24 02:47 4 MG Acetaminophen 650 mg Q6HP PRN PO 05/22/24 15:00 05/29/24 21:55 650 MG Citalopram Hydrobromide 20 mg DAILY PO 05/23/24 10:00 06/03/24 09:22 20 MG Hydralazine HCl 10 mg Q6HP PRN IV 05/23/24 05:00 05/24/24 01:34 10 MG Prochlorperazine Edisylate 10 mg Q6HP PRN IV 05/23/24 12:00 06/04/24 12:42 10 MG Atorvastatin Calcium 20 mg DAILY PO 05/24/24 10:00 06/03/24 09:22 20 MG Nortriptyline HCl 50 mg HS PO 05/23/24 22:00 06/05/24 21:48 50 MG Tamsulosin HCl 0.4 mg QPM PO 05/23/24 18:00 06/03/24 17:52 0.4 MG Enteral Nutritional Formula 27.5 gm BIDWM PO 05/27/24 18:00 05/31/24 10:54 27.5 GM Enteral Nutritional Formula 240 ml TIDWM PO 06/01/24 18:00 06/03/24 18:30 240 ML Acetaminophen/ Hydrocodone Bitart 1 tab Q4HPRN PRN PO 06/02/24 14:30 Docusate Calcium 240 mg DAILY PO 06/03/24 12:33 06/03/24 19:44 240 MG Metoprolol Tartrate 10 mg BID PO 06/03/24 22:00 UNV Sennosides 8.6 mg DAILYP PO 06/03/24 12:33 06/03/24 13:52 8.6 MG Duloxetine HCl 60 mg DAILY PO 06/03/24 12:34 06/03/24 13:52 60 MG Metoprolol Tartrate 25 mg BID PO 06/03/24 22:00 Hold 06/03/24 22:43 25 MG Norepinephrine Bitartrate 250 ml @ 3.75 mls/hr Q24H IV 06/04/24 13:30 06/06/24 19:35 11.25 MLS/HR Piperacillin Sod/ Tazobactam Sod 100 ml @ 25 mls/hr Q12HR IV 06/04/24 15:00 06/08/24 10:00 25 MLS/HR Enoxaparin Sodium 100 mg DAILY SC 06/05/24 10:00 06/07/24 10:08 100 MG Metoprolol Tartrate 5 mg Q4HP PRN IV 06/05/24 11:15 Hold Pantoprazole Sodium 40 mg DAILY IV 06/06/24 10:00 06/08/24 09:59 40 MG Dextrose/Sodium Chloride 1,000 ml @ 100 mls/hr Q10H IV 06/07/24 13:15 06/08/24 09:21 100 MLS/HR Amino Acids 0 ml @ 0 mls/hr PER PHARMACY IV 06/07/24 13:30 Diagnostic Test (Pha) 1 strip Q6HR 06/07/24 18:00 06/08/24 06:00 1 STRIP Insulin Human Regular FOLLOW SLIDING SCALE Q6HR SC 06/07/24 18:00 06/08/24 07:14 4 UNITS Dextrose 50 ml UD IV 06/07/24 14:15 Diltiazem HCl 10 mg Q6H IV 06/07/24 22:00 06/08/24 10:39 10 MG Morphine Sulfate 2 mg Q4HPRN PRN IV 06/08/24 10:45 objective General Appearance: alert, no distress HEENT: EOMI, PERRLA, normal external inspect of ears, no icterus, no nasal drainage Neck: no carotid bruit, no jugular venous distention (JVD), no lymphadenopathy Chest: normal thorax Respiratory: clear to auscultation, normal air movement Cardiovascular: regular rate and rhythm, no diastolic murmur, no jugular venous distention (JVD), no rub, no systolic murmur Abdominal: soft, no hepatomegaly, no mass, no splenomegaly, no tenderness Genitourinary: grossly normal external Musculoskeletal: no joint tenderness, no swelling Extremities: normal pulses, no calf tenderness, no clubbing, no cyanosis, no edema Skin: no bruising, no jaundice, no rash Neurological: alert, No focal deficit laboratory and microbiology Laboratory Tests 06/08/24 04:48 06/07/24 05:09 Test 06/08/24 04:48 Range/Units Serum Glucose 117 H 74-106 mg/dL Problem List 1. Small bowel obstruction Monitor, surgical consult, GI consult, NPO 2. HLD Monitor 3. Persistent atrial fibrillation Monitor, full dose Lovenox 4. Obesity Monitor 5. Hx gastric bypass Monitor 6. Benign essential HTN Monitor, antihypertensives 7. Gallstones Monitor, surgical consult, GI consult, NPO, HIDA scan 8. Sepsis Monitor 9. Septic Shock Monitor 10. Acute renal failure Monitor, nephrology consult Assessment/Plan Subjective: Patient was not seen in the room. Objective: Patient was taken emergently to the O.R. for exploratory laparotomy and required surgery performed by Dr. Lorenz. The patient was initially admitted for abdominal pain and was found to have a small bowel obstruction versus ileus. Several small bowel series were done which apparently showed resolution. However, the patient began experiencing progressive emesis and abdominal pain. The patient was also evaluated by GI, and there was a high suspicion for possible ischemic bowel. A higher level of care was considered, but the transfer was denied. The patient has a history of Dave-en-Y gastric bypass. Hemoglobin is 11.2. The patient has acute renal failure, which had resolved as of 06/07/24. The patient was intubated and placed in the ICU following emergent surgery. Plan: Continue current treatment. The patient remains intubated in the ICU. Continue antibiotics. Dietary Evaluation Review Comments: 1. advance diet as tolerated per MD 2. Consider EN/TPN if Pt remains NPO for 48 hours Expected Outcomes/Goals: 1. Pt will consume >75% estimated needs within 2-3 days Plan discussed with: Patient, Other TETO CRAMER [employer] STATION ENGINEER CHIEF Jun 08, 2024 12:15
[2024-06-08] MEDS ORDERED: ROCURONIUM 10MG/ML 10ML VIAL IV ONE (13:00)
[2024-06-08] MEDS: ceFAZolin 1GM VL ONE (13:27)
[2024-06-08] MEDS ORDERED: ePHEDrine SULFATE 50 MG/ML AMP ONE ×2 (13:58→13:59)
[2024-06-08] MEDS: POTASSIUM PHOSPHATE 26.4 MEQ in SODIUM CHL 0.9% 100 ML IV ONE ×2 (14:00→20:30)
[2024-06-08] MEDS ORDERED: fentaNYL Drip 2500mCg/250mlNS 250 ML IV SCH (15:30)
[2024-06-08] MEDS ORDERED: MIDAZOLAM DRIP 50 mg/50mL 50 ML IV SCH (15:30)
--- NOTE | 2024-06-08 15:31 | DVHOP2 ---
Operative Report [id number] SBO ADHESIONS INTRAABD ABSCESS CONTAINED PERFORATION DISTAL ANASTOMOSIS OF THE EFFERENT LIMB S/P GASTRIC BYPASS STRICTURE AND CONTAINED PERFORATION OF BLIND LOOP OF DISTAL AFFERENT LIMB CLOSE TO ANASTOMOSIS E LAP SMALL BOWEL RESECTION WITH ANASTOMOSIS OF EFFERENT LIMB REVISION OF AFFERENT LIMB ANASTOMOSIS DISTAL TO THE EFFERENT LIMB NEW ANASTOMOSIS SURGEON R DIA ASSIST DR. MANUEL DALEY EBL 25 CC NO DRAINS NO COMPLICATION MARTHA ALVARES MD Jun 08, 2024 15:31
[2024-06-08] MEDS: MIDAZOLAM DRIP 50 mg/50mL 50 ML IV SCH (15:40)
[2024-06-08] MEDS: fentaNYL Drip 2500mCg/250mlNS 250 ML IV SCH (15:40)
[2024-06-08] MEDS ORDERED: MIDAZOLAM HCL 2MG/2ML 2ml VIAL (1mg/ml) IV PRN (15:45)
[2024-06-08] MEDS ORDERED: fentaNYL CITRATE 100 MCG/2 ML VL IV PRN (15:45)
[2024-06-08] MEDS ORDERED: ePHEDrine SULFATE 50 MG/ML AMP IV PRN (15:45)
[2024-06-08] MEDS: ONDANSETRON HCL 4 MG/2 ML VIAL IV ONE (15:45)
[2024-06-08] MEDS ORDERED: NALOXONE HCL 0.4 MG/ML VIAL IV PRN (15:45)
[2024-06-08] MEDS ORDERED: MORPHINE SULFATE 4 MG/ML SYR/VIAL IV PRN ×2 (15:45)
[2024-06-08] MEDS: MORPHINE SULFATE 4 MG/ML SYR/VIAL ONE (15:50)
--- NOTE | 2024-06-08 16:17 | DVH ---
CHEST RADIOGRAPH Indication:POST SURGERY Technique: Single frontal view of the chest was obtained Comparison: XY CHEST PORTABLE on DOS: 06/07/24, XY CHEST XRAY 1 VIEW on DOS: 06/05/24, XY CHEST PORTABL E on DOS: 05/23/24, CHEST PORTABLE on DOS: 02/20/20, CHEST PORTABLE on DOS: 02/05/20 FINDINGS: Lines and Tubes: Endotracheal tube, enteric tube and right IJ approach central venous catheter in sat isfactory position. Lungs: Bronchovascular crowding due to low lung volume with bilateral lower lung zone opacities. Pleura: No effusion. No pneumothorax. Cardiomediastinal contours: Heart size is within normal limits with moderate atherosclerotic calcific ation and uncoiling of the aorta. Bones: No acute osseous abnormality. IMPRESSION: Lines and tubes are in satisfactory position. Bilateral lower lung zone pneumonia/atelectasis.
--- NOTE | 2024-06-08 16:27 | DVHOP ---
DATE OF SURGERY: 06/08/2024 PREOPERATIVE DIAGNOSES: Bowel obstruction, rule out contained bowel perforation, status post gastric bypass surgery with multiple procedures done on him, details are not clear. The gastric bypass surgery presumably was for morbid obesity and it possibly was a Dave-en-Y gastric bypass but details are not clear. POSTOPERATIVE DIAGNOSES: Bowel obstruction, rule out contained bowel perforation, status post gastric bypass surgery with multiple procedures done on him, details are not clear. The gastric bypass surgery presumably was for morbid obesity and it possibly was a Dave-en-Y gastric bypass but details are not clear. PROCEDURES: Exploratory laparotomy with drainage of intra-abdominal abscess, lysis of adhesions, and small bowel resection and anastomosis with revision of the distal gastric bypass anastomosis. SURGEON: Dakota Lorenz MD CHIEF STATION ENGINEER: Vic Warren MD ANESTHESIA: General. BLOOD LOSS: Close to 25 mL. DRAINS: No drains were used. COMPLICATIONS: No complications were encountered. DESCRIPTION OF PROCEDURE: The patient was prepped and draped in the usual sterile fashion in the supine position. A vertical midline incision was applied to the right of the umbilicus, was taken down to the symphysis pubis and supraumbilically as well. The abdomen was entered. There was no free air noted, but there was free fluid noted in the pelvis right lower abdomen and as more exploration was carried out and the bowel was delivered outside, a spot was found in the upper abdomen close to where the distal anastomosis was. There was a contained abscess with contained perforation. Difficult to explain the anatomy because of his previous surgery but clearly the efferent limb was identified. The anastomosis to the stomach was fine. The gastric stomach was felt. The NG tube was felt in the stomach and it was draining so the obstruction was distal to that obviously and presumably it was found that there was adhesion and stricturing noted at the distal anastomosis. The efferent limb or the DJ flexure was noted and the anastomosis was then found of the afferent limb to the efferent limb and right there, there was a loop of bowel that was twisted and there were two contained perforations, one at the anastomosis and the other one at the strictured area of the loop of bowel that was from the afferent limb distally very close to the distal anastomosis. So a decision was made to resect this damaged bowel segment and a suitable spot was selected in the efferent limb location. There was more healthy stapled anastomosis. Stapler device was used to disconnect this and then a suitable spot was selected in the efferent limb much distal from the DJ flexure but above the contained perforation and another spot was selected below the previous anastomosis and this allowed the loop of bowel that was damaged to be removed. So the stapling device was used to do this and then the proximal and distal limbs of the efferent bowel resection were anastomosed in a [id number] stapled fashion closing off the final opening with the stapling device as well as reinforcing the staple line with interrupted Vicryl suture and then the afferent limb was then connected to the efferent limb distal to this anastomosis in a [id number] stapled fashion and closing of the final opening as well with the same stapling device and then reinforcing the anastomosis with the Vicryl suture at various locations. With this being done, hemostasis being secured, and anatomic catholic established, flow was obtained from the afferent limb into the efferent limb of the anastomosis and the entire small bowel was explored going to the ileocecal junction. The ascending colon, transverse colon, and the sigmoid colon were identified and this being done, no further intervention was necessary. Thorough irrigation of the entire abdominal cavity was carried out. All four quadrants were suctioned out including the pelvis and the sponge count and needle count was reported correct. The bowel was replaced back into the anatomic location and the mesenteric tissue was secured with the Vicryl suture to prevent bowel herniation. With this being done, the glove change was performed and the fascia was brought together using Maxon suture and the subcutaneous tissues were brought together using Vicryl suture and the skin was brought together using stapling device. Dressing was applied. The patient tolerated the procedure well and was taken back to recovery room in stable condition. MD ROSALIA Zhang/PETER/ISAIAS TID: [id number] RECEIPT: [id number] cc: Vic Warren MD, Kenisha Mcnamara NP
--- NOTE | 2024-06-08 16:46 | DVHPN2 ---
Progress Note Date Seen: Jun 08, 2024 Medical Necessity Reason Pt with a Central, PICC or Fol: Yes The following are medically ne: Central Line, Grewal Catheter Reason for grewal catheter: Strict I&O Subjective Patient reports: Other Review of Systems: Deferred Objective vital signs Vital Sign Date Time Temp Pulse Resp B/P (MAP) Pulse Ox O2 Delivery O2 Flow Rate FiO2 06/08/24 16:28 97.3 95 14 151/70 97.3 06/08/24 15:20 95 50 06/08/24 15:00 Mechanical Ventilator 06/08/24 12:00 2 Total Intake and Output 06/07/24 06/07/24 06/08/24 15:00 23:00 07:00 Intake Total 2878.45 ml 1047.8 ml 1195 ml Output Total 325 ml 450 ml Balance 2878.45 ml 722.8 ml 745 ml medications Current Medications Medications Dose Ordered Sig/Jason Route Start Time Stop Time Status Last Admin Dose Admin Ondansetron HCl 4 mg Q4HP PRN IV 05/22/24 15:00 06/06/24 02:47 4 MG Acetaminophen 650 mg Q6HP PRN PO 05/22/24 15:00 05/29/24 21:55 650 MG Citalopram Hydrobromide 20 mg DAILY PO 05/23/24 10:00 06/03/24 09:22 20 MG Hydralazine HCl 10 mg Q6HP PRN IV 05/23/24 05:00 05/24/24 01:34 10 MG Prochlorperazine Edisylate 10 mg Q6HP PRN IV 05/23/24 12:00 06/04/24 12:42 10 MG Atorvastatin Calcium 20 mg DAILY PO 05/24/24 10:00 06/03/24 09:22 20 MG Nortriptyline HCl 50 mg HS PO 05/23/24 22:00 06/05/24 21:48 50 MG Tamsulosin HCl 0.4 mg QPM PO 05/23/24 18:00 06/03/24 17:52 0.4 MG Enteral Nutritional Formula 27.5 gm BIDWM PO 05/27/24 18:00 05/31/24 10:54 27.5 GM Enteral Nutritional Formula 240 ml TIDWM PO 06/01/24 18:00 06/03/24 18:30 240 ML Acetaminophen/ Hydrocodone Bitart 1 tab Q4HPRN PRN PO 06/02/24 14:30 Docusate Calcium 240 mg DAILY PO 06/03/24 12:33 06/03/24 19:44 240 MG Metoprolol Tartrate 10 mg BID PO 06/03/24 22:00 UNV Sennosides 8.6 mg DAILYP PO 06/03/24 12:33 06/03/24 13:52 8.6 MG Duloxetine HCl 60 mg DAILY PO 06/03/24 12:34 06/03/24 13:52 60 MG Metoprolol Tartrate 25 mg BID PO 06/03/24 22:00 Hold 06/03/24 22:43 25 MG Norepinephrine Bitartrate 250 ml @ 3.75 mls/hr Q24H IV 06/04/24 13:30 06/06/24 19:35 11.25 MLS/HR Piperacillin Sod/ Tazobactam Sod 100 ml @ 25 mls/hr Q12HR IV 06/04/24 15:00 06/08/24 10:00 25 MLS/HR Enoxaparin Sodium 100 mg DAILY SC 06/05/24 10:00 06/07/24 10:08 100 MG Metoprolol Tartrate 5 mg Q4HP PRN IV 06/05/24 11:15 Hold Pantoprazole Sodium 40 mg DAILY IV 06/06/24 10:00 06/08/24 09:59 40 MG Dextrose/Sodium Chloride 1,000 ml @ 100 mls/hr Q10H IV 06/07/24 13:15 06/08/24 09:21 100 MLS/HR Amino Acids 0 ml @ 0 mls/hr PER PHARMACY IV 06/07/24 13:30 Diagnostic Test (Pha) 1 strip Q6HR 06/07/24 18:00 06/08/24 06:00 1 STRIP Insulin Human Regular FOLLOW SLIDING SCALE Q6HR SC 06/07/24 18:00 06/08/24 07:14 4 UNITS Dextrose 50 ml UD IV 06/07/24 14:15 Diltiazem HCl 10 mg Q6H IV 06/07/24 22:00 06/08/24 10:39 10 MG Morphine Sulfate 2 mg Q4HPRN PRN IV 06/08/24 10:45 Fat Emulsion Intravenous 50 ml/ Sodium Phosphate 20 meq/Potassium Phosphate 22 meq/ Magnesium Sulfate 8 meq/ Multivitamins 10 ml/Chromium/ Copper/Manganese/ Zinc 1 ml/Amino Acids/Dextrose 873 ml @ 36 mls/hr [id number] IV 06/08/24 20:00 06/09/24 19:59 Midazolam HCl 50 ml @ 3 mls/hr [id number] IV 06/08/24 15:45 Fentanyl Citrate 250 ml @ 10 mls/hr Q24H IV 06/08/24 15:45 Morphine Sulfate 2 mg Q4H PRN IV 06/08/24 15:45 06/08/24 19:46 Examination: GENERAL:Abnormal, ABDOMEN:Abnormal, NEURO:Normal laboratory and microbiology Laboratory Tests 06/08/24 04:48 06/07/24 05:09 Test 06/08/24 04:48 Range/Units Serum Glucose 117 H 74-106 mg/dL Microbiology Date/Time Source Procedure Growth Status 06/04/24 19:00 Nose MRSA Screen - Final Complete Problem List/Assessment/Plan Problem List/Assessment/Plan SYBIL secondary to hemodynamic mediated, FeNa < 1% (Cr 1.0 on admission 05/22/24) Dehydration BPH with LUTS Septic shock Leukocytosis Bilateral nonobstructing nephrolithiasis s/p ORIF left hip 05/27 Hypotension Chronic diastolic HF A fib Abdominal pain Small-bowel obstruction on NG suction h/o gastric bypass Hypokalemia Hypomagnesemia REC: Kidney function continues to improve with IV fluid hydration--switch to D5NS as pt NPO kidney US reported bilateral nephrolithiasis and echogenic kidney Hold EDWARD inhibitors OR today Plan discussed with: Other Dietary Evaluation Review Comments: 1. advance diet as tolerated per 2. Consider EN/TPN if Pt remains NPO for 48 hours Expected Outcomes/Goals: 1. Pt will consume >75% estimated needs within 2-3 days PRISCA DON MD Jun 08, 2024 16:46
--- NOTE | 2024-06-08 18:51 | DVHPN2 ---
Progress Note - Dictate Date Seen: Jun 08, 2024 Medical Necessity Reason Pt with a Central, PICC or Fol: Yes The following are medically ne: Central Line, Grewal Catheter Reason for grewal catheter: Strict I&O Subjective Pt seen and examined at bedside On supplemental oxygen Overnight events reviewed. vital signs Vital Sign Date Time Temp Pulse Resp B/P (MAP) Pulse Ox O2 Delivery O2 Flow Rate FiO2 06/08/24 17:50 120 23 97/57 (70) 100 100 06/08/24 16:30 Mechanical Ventilator 06/08/24 16:28 97.3 97.3 06/08/24 12:00 2 Total Intake and Output 06/07/24 06/07/24 06/08/24 15:00 23:00 07:00 Intake Total 2878.45 ml 1047.8 ml 1195 ml Output Total 325 ml 450 ml Balance 2878.45 ml 722.8 ml 745 ml medications Current Medications Medications Dose Ordered Sig/Jason Route Start Time Stop Time Status Last Admin Dose Admin Ondansetron HCl 4 mg Q4HP PRN IV 05/22/24 15:00 06/06/24 02:47 4 MG Acetaminophen 650 mg Q6HP PRN PO 05/22/24 15:00 05/29/24 21:55 650 MG Citalopram Hydrobromide 20 mg DAILY PO 05/23/24 10:00 06/03/24 09:22 20 MG Hydralazine HCl 10 mg Q6HP PRN IV 05/23/24 05:00 05/24/24 01:34 10 MG Prochlorperazine Edisylate 10 mg Q6HP PRN IV 05/23/24 12:00 06/04/24 12:42 10 MG Atorvastatin Calcium 20 mg DAILY PO 05/24/24 10:00 06/03/24 09:22 20 MG Nortriptyline HCl 50 mg HS PO 05/23/24 22:00 06/05/24 21:48 50 MG Tamsulosin HCl 0.4 mg QPM PO 05/23/24 18:00 06/03/24 17:52 0.4 MG Enteral Nutritional Formula 27.5 gm BIDWM PO 05/27/24 18:00 05/31/24 10:54 27.5 GM Enteral Nutritional Formula 240 ml TIDWM PO 06/01/24 18:00 06/03/24 18:30 240 ML Acetaminophen/ Hydrocodone Bitart 1 tab Q4HPRN PRN PO 06/02/24 14:30 Docusate Calcium 240 mg DAILY PO 06/03/24 12:33 06/03/24 19:44 240 MG Metoprolol Tartrate 10 mg BID PO 06/03/24 22:00 UNV Sennosides 8.6 mg DAILYP PO 06/03/24 12:33 06/03/24 13:52 8.6 MG Duloxetine HCl 60 mg DAILY PO 06/03/24 12:34 06/03/24 13:52 60 MG Metoprolol Tartrate 25 mg BID PO 06/03/24 22:00 Hold 06/03/24 22:43 25 MG Norepinephrine Bitartrate 250 ml @ 3.75 mls/hr Q24H IV 06/04/24 13:30 06/06/24 19:35 11.25 MLS/HR Piperacillin Sod/ Tazobactam Sod 100 ml @ 25 mls/hr Q12HR IV 06/04/24 15:00 06/08/24 10:00 25 MLS/HR Enoxaparin Sodium 100 mg DAILY SC 06/05/24 10:00 06/07/24 10:08 100 MG Metoprolol Tartrate 5 mg Q4HP PRN IV 06/05/24 11:15 Hold Pantoprazole Sodium 40 mg DAILY IV 06/06/24 10:00 06/08/24 09:59 40 MG Dextrose/Sodium Chloride 1,000 ml @ 100 mls/hr Q10H IV 06/07/24 13:15 06/08/24 09:21 100 MLS/HR Amino Acids 0 ml @ 0 mls/hr PER PHARMACY IV 06/07/24 13:30 Diagnostic Test (Pha) 1 strip Q6HR 06/07/24 18:00 06/08/24 18:32 1 STRIP Insulin Human Regular FOLLOW SLIDING SCALE Q6HR SC 06/07/24 18:00 06/08/24 18:00 4 UNITS Dextrose 50 ml UD IV 06/07/24 14:15 Diltiazem HCl 10 mg Q6H IV 06/07/24 22:00 06/08/24 10:39 10 MG Morphine Sulfate 2 mg Q4HPRN PRN IV 06/08/24 10:45 Fat Emulsion Intravenous 50 ml/ Sodium Phosphate 20 meq/Potassium Phosphate 22 meq/ Magnesium Sulfate 8 meq/ Multivitamins 10 ml/Chromium/ Copper/Manganese/ Zinc 1 ml/Amino Acids/Dextrose 873 ml @ 36 mls/hr [id number] IV 06/08/24 20:00 06/09/24 19:59 Midazolam HCl 50 ml @ 3 mls/hr [id number] IV 06/08/24 15:45 06/08/24 15:40 3 MLS/HR Fentanyl Citrate 250 ml @ 10 mls/hr Q24H IV 06/08/24 15:45 06/08/24 15:40 10 MLS/HR Morphine Sulfate 2 mg Q4H PRN IV 06/08/24 15:45 06/08/24 19:46 objective Gen.: Patient lying in bed in no apparent distress. On supplemental oxygen. Head: Normocephalic, atraumatic. Eyes: EOMI/PERRLA. Ears: Normal hearing. Normal anatomy. Neck/trachea: Trachea midline, supple. Left IJ Central line in place. Nose: Normal external anatomy. Mouth: Moist mucous membranes. Chest: Decreased air entry bilaterally. No wheezing or rhonchi. Cardiovascular: Positive S1, positive S2. Regular rate and rhythm. Abdomen: Positive bowel sounds in all 4 quadrants. Soft, non-tender, non- distended. : Deferred. Rectal: Deferred. Skin: Warm, dry. Intact. Extremities: 2+ radial pulses bilaterally. No lower extremity edema. Neuro: Awake, alert, oriented x3. No gross motor or sensory deficits. Cranial nerves II through XII intact. Gait not assessed. laboratory and microbiology Laboratory Tests 06/08/24 04:48 06/07/24 05:09 Test 06/08/24 04:48 Range/Units Serum Glucose 117 H 74-106 mg/dL Assessment/Plan Impression: Septic shock Acute hypoxic respiratory failure Acute kidney injury Small bowel obstruction Atrial fibrillation Hx of gastric bypass (Dave-en-Y) Obesity, BMI 34.2 Events: On supplemental oxygen, 3 LPM NC Taper O2 as tolerated Patient is off pressors. Blood pressure is stable. Continue abx: Zosyn Clinimix for nutritional support. Follow up GI recommendations Monitor hemoglobin Transfuse if less than 7.0 g/dL. Monitor renal function Monitor electrolytes. Supplement as necessary. Rest of plan as noted below. Plan: S/p central line placement. Needed for administration of pressors. Supplemental oxygen, 3 LPM NC Taper O2 as tolerated Antibiotics Incentive spirometry Pressors as necessary for hemodynamic support Titrate to keep mean arterial pressure greater than 65 mmHg. GI recommendations appreciated. WBC trending down. Hemoglobin - monitor Monitor renal function. Monitor electrolytes. Supplement as necessary. Monitor ins and outs. Creatinine trending down. Diet and lifestyle modifications discussed Obesity - complicates all care. DVT prophylaxis. Prognosis: Poor given patient's multiple co-morbidities. Condition: Critical Rest of plan per hospitalist and other consultants. A total of 35 minutes of critical care time was spent reviewing the patient record, examining the patient, making a diagnostic and therapeutic plan, discussing this plan with the medical personnel, following up on diagnostic studies and following the patient for clinical stability excluding any and all procedures. At least 50% of this time was spent in direct, [id number] contact. Thank you Makenzie Mcnamara NP, for allowing me to participate in this patient's care. Further recommendations will depend on the patient's clinical course. Please do not hesitate to contact me if you have any questions or concerns. This medical document was created using an electronic medical record system with [employer] dictation system. Although these documentations are being carefully reviewed, there may still be some phonetic and typographical changes. The errors are purely typographical, due to imperfection on the software program, and do not reflect any compromise in the patient's medical care Dietary Evaluation Review Comments: 1. advance diet as tolerated per MD 2. Consider EN/TPN if Pt remains NPO for 48 hours Expected Outcomes/Goals: 1. Pt will consume >75% estimated needs within 2-3 days Plan discussed with: Other (NIRAV Ellington) Critical Care Time(min): 35 PRISCILLA CORREA MD Jun 08, 2024 18:51
[2024-06-08] MEDS: MIDAZOLAM DRIP 50 mg/50mL 50 ML IV ONE (19:49)
--- NOTE | 2024-06-08 20:05 | DVHPN2 ---
Progress Note - Dictate Date Seen: Jun 08, 2024 Medical Necessity Reason Pt with a Central, PICC or Fol: Yes The following are medically ne: Central Line, Grewal Catheter Reason for grewal catheter: Strict I&O Subjective Patient underwent a laparotomy today patient has been transferred to ICU currently intubated sedated PROCEDURES: Exploratory laparotomy with drainage of intra-abdominal abscess, lysis of adhesions, and small bowel resection and anastomosis with revision of the distal gastric bypass anastomosis. vital signs Vital Sign Date Time Temp Pulse Resp B/P (MAP) Pulse Ox O2 Delivery O2 Flow Rate FiO2 06/08/24 19:00 111/70 06/08/24 18:00 91 06/08/24 18:00 14 98 Nasal Cannula* 2 28 06/08/24 17:40 99.1 99.1 Total Intake and Output 06/07/24 06/07/24 06/08/24 15:00 23:00 07:00 Intake Total 2878.45 ml 1047.8 ml 1195 ml Output Total 325 ml 450 ml Balance 2878.45 ml 722.8 ml 745 ml medications Current Medications Medications Dose Ordered Sig/Jason Route Start Time Stop Time Status Last Admin Dose Admin Ondansetron HCl 4 mg Q4HP PRN IV 05/22/24 15:00 06/06/24 02:47 4 MG Acetaminophen 650 mg Q6HP PRN PO 05/22/24 15:00 05/29/24 21:55 650 MG Citalopram Hydrobromide 20 mg DAILY PO 05/23/24 10:00 06/03/24 09:22 20 MG Hydralazine HCl 10 mg Q6HP PRN IV 05/23/24 05:00 05/24/24 01:34 10 MG Prochlorperazine Edisylate 10 mg Q6HP PRN IV 05/23/24 12:00 06/04/24 12:42 10 MG Atorvastatin Calcium 20 mg DAILY PO 05/24/24 10:06/03/24 09:22 20 MG Nortriptyline HCl 50 mg HS PO 05/23/24 22:00 06/05/24 21:48 50 MG Tamsulosin HCl 0.4 mg QPM PO 05/23/24 18:00 06/03/24 17:52 0.4 MG Enteral Nutritional Formula 27.5 gm BIDWM PO 05/27/24 18:00 05/31/24 10:54 27.5 GM Enteral Nutritional Formula 240 ml TIDWM PO 06/01/24 18:00 06/03/24 18:30 240 ML Acetaminophen/ Hydrocodone Bitart 1 tab Q4HPRN PRN PO 06/02/24 14:30 Docusate Calcium 240 mg DAILY PO 06/03/24 12:33 06/03/24 19:44 240 MG Metoprolol Tartrate 10 mg BID PO 06/03/24 22:00 UNV Sennosides 8.6 mg DAILYP PO 06/03/24 12:33 06/03/24 13:52 8.6 MG Duloxetine HCl 60 mg DAILY PO 06/03/24 12:34 06/03/24 13:52 60 MG Metoprolol Tartrate 25 mg BID PO 06/03/24 22:00 Hold 06/03/24 22:43 25 MG Norepinephrine Bitartrate 250 ml @ 3.75 mls/hr Q24H IV 06/04/24 13:30 06/06/24 19:35 11.25 MLS/HR Piperacillin Sod/ Tazobactam Sod 100 ml @ 25 mls/hr Q12HR IV 06/04/24 15:00 06/08/24 10:00 25 MLS/HR Enoxaparin Sodium 100 mg DAILY SC 06/05/24 10:00 06/07/24 10:08 100 MG Metoprolol Tartrate 5 mg Q4HP PRN IV 06/05/24 11:15 Hold Pantoprazole Sodium 40 mg DAILY IV 06/06/24 10:00 06/08/24 09:59 40 MG Dextrose/Sodium Chloride 1,000 ml @ 100 mls/hr Q10H IV 06/07/24 13:15 06/08/24 09:21 100 MLS/HR Amino Acids 0 ml @ 0 mls/hr PER PHARMACY IV 06/07/24 13:30 Diagnostic Test (Pha) 1 strip Q6HR 06/07/24 18:00 06/08/24 18:32 1 STRIP Insulin Human Regular FOLLOW SLIDING SCALE Q6HR SC 06/07/24 18:00 06/08/24 18:00 4 UNITS Dextrose 50 ml UD IV 06/07/24 14:15 Diltiazem HCl 10 mg Q6H IV 06/07/24 22:00 06/08/24 10:39 10 MG Morphine Sulfate 2 mg Q4HPRN PRN IV 06/08/24 10:45 Fat Emulsion Intravenous 50 ml/ Sodium Phosphate 20 meq/Potassium Phosphate 22 meq/ Magnesium Sulfate 8 meq/ Multivitamins 10 ml/Chromium/ Copper/Manganese/ Zinc 1 ml/Amino Acids/Dextrose 873 ml @ 36 mls/hr [id number] IV 06/08/24 20:00 06/09/24 19:59 Midazolam HCl 50 ml @ 3 mls/hr [id number] IV 06/08/24 15:45 06/08/24 15:40 3 MLS/HR Fentanyl Citrate 250 ml @ 10 mls/hr Q24H IV 06/08/24 15:45 06/08/24 15:40 10 MLS/HR objective General Appearance: Intubated sedated HEENT: EOMI, PERRLA, normal external inspect of ears, no icterus, no nasal drainage Neck: no carotid bruit, no jugular venous distention (JVD), no lymphadenopathy Chest: normal thorax Respiratory: clear to auscultation, normal air movement Cardiovascular: regular rate and rhythm, no diastolic murmur, no jugular venous distention (JVD), no rub, no systolic murmur Abdominal: soft, no hepatomegaly, no mass, no splenomegaly, dressing dry binder in place GIANNA drain Musculoskeletal: no joint tenderness, no swelling Extremities: normal pulses, no calf tenderness, no clubbing, no cyanosis, no edema Skin: no bruising, no jaundice, no rash Neurological: alert, No focal deficit laboratory and microbiology Laboratory Tests 06/08/24 04:48 06/07/24 05:09 Test 06/08/24 04:48 Range/Units Serum Glucose 117 H 74-106 mg/dL Problems(with codes): (1) Gastric bypass status for obesity (2) N&V (nausea and vomiting) (3) INTESTINAL OBSTRUCT NOS (4) Wound of left leg Prognosis Plan Keep NPO NG tube to low intermittent suction IV TPN IV antibiotics Supportive care ventilatory support and pressors as needed I will follow up patient with you Prognosis remains guarded Dietary Evaluation Review Comments: 1. advance diet as tolerated per MD 2. Consider EN/TPN if Pt remains NPO for 48 hours Expected Outcomes/Goals: 1. Pt will consume >75% estimated needs within 2-3 days Plan discussed with: Other (Dr Jeremiah Alvares) SRINIVASAN ALVARES MD Jun 08, 2024 20:05
[2024-06-08] MEDS: TPN PER PHARMACY IV NR (22:20)
[2024-06-09] VITALS (105 sets, daily range): BP systolic 81–170; BP diastolic 38–73; PULSE 71–131; RESP 12–32; TEMP 97.7–100.4; O2SAT 82–100
[2024-06-09 00:57] LABS: Basophils # (auto) 0 10 ^3/uL (0-0.2); Basophils % (auto) 0.1 % (0.0-2.0); Eosinophils # (auto) 0 10 ^3/uL (0-0.8); Hematocrit 32.3 % (41.0-53.0); Hemoglobin 10.4 g/dL (13.5-17.5); Lymphocytes # (auto) 0.3 10 ^3/uL (0.4-5.4); Mean Corpuscular Hemoglobin 29.5 pg (28.0-32.0); Mean Corpuscular Hgb Conc. 32.2 g/dL (32.0-36.0); Mean Corpuscular Volume 91.5 fL (80.0-100.0); Monocytes # (auto) 0.7 10 ^3/uL (0-1.3); Monocytes % (auto) 5.1 % (0.0-12.0); Neutrophils # (auto) 12.4 10 ^3/uL (1.6-8.6); Neutrophils % (auto) 92.8 % (37.0-80.0); Nucleated Red Blood Cells % 0.1 %; Platelet Count (auto) 399 10^3/uL (140-450); Red Blood Cells 3.52 10^6/uL (4.5-5.90); Red Cell Distribution Width 17.6 % (11.8-14.3); White Blood Cell 13.4 10^3/uL (4.4-10.8)
[2024-06-09 01:11] LABS: Alanine Aminotransferase 12 U/L (7-40); Albumin 2.5 g/dL (3.2-4.8); Alkaline Phosphatase 70 U/L (46-116); Anion Gap 7 (5-15); Aspartate Aminotransferase 16 U/L (13-40); BUN/Creatinine Ratio 24.8 (10.0-20.0); Blood Urea Nitrogen 33 mg/dL (9-23); Calcium 8.3 mg/dL (8.7-10.4); Carbon Dioxide 22 mmol/L (20-31); Chloride 110 mmol/L (98-107); Magnesium 1.6 mg/dL (1.6-2.6); Potassium 4.1 mmol/L (3.5-5.1); Sodium 139 mmol/L (136-145)
[2024-06-09 01:12] LABS: Bilirubin, Total 0.5 mg/dL (0.2-1.0); Phosphorus 3.7 mg/dL (2.4-5.1); Total Protein 4.4 g/dL (5.7-8.2)
[2024-06-09 01:13] LABS: Glucose 231 mg/dL (74-106)
[2024-06-09 04:54] LABS: Basophils # (auto) 0 10 ^3/uL (0-0.2); Basophils % (auto) 0.1 % (0.0-2.0); Eosinophils # (auto) 0 10 ^3/uL (0-0.8); Eosinophils % (auto) 0.1 % (0.0-7.0); Hematocrit 35.6 % (41.0-53.0); Hemoglobin 11.2 g/dL (13.5-17.5); Lymphocytes # (auto) 0.3 10 ^3/uL (0.4-5.4); Lymphocytes % (auto) 2.4 % (10.0-50.0); Mean Corpuscular Hemoglobin 29.6 pg (28.0-32.0); Mean Corpuscular Hgb Conc. 31.3 g/dL (32.0-36.0); Mean Corpuscular Volume 94.5 fL (80.0-100.0); Monocytes # (auto) 0.9 10 ^3/uL (0-1.3); Monocytes % (auto) 6.4 % (0.0-12.0); Neutrophils # (auto) 12.9 10 ^3/uL (1.6-8.6); Nucleated Red Blood Cells % 0.1 %; Platelet Count (auto) 401 10^3/uL (140-450); Red Blood Cells 3.77 10^6/uL (4.5-5.90); Red Cell Distribution Width 17.6 % (11.8-14.3); White Blood Cell 14.1 10^3/uL (4.4-10.8)
[2024-06-09 05:21] LABS: Alanine Aminotransferase 13 U/L (7-40); Alkaline Phosphatase 66 U/L (46-116); Anion Gap 10 (5-15); Aspartate Aminotransferase 16 U/L (13-40); BUN/Creatinine Ratio 18.8 (10.0-20.0); Blood Urea Nitrogen 30 mg/dL (9-23); Calcium 8.5 mg/dL (8.7-10.4); Carbon Dioxide 19 mmol/L (20-31); Chloride 108 mmol/L (98-107); Glucose 283 mg/dL (74-106); Magnesium 1.8 mg/dL (1.6-2.6); Potassium 4.2 mmol/L (3.5-5.1); Sodium 137 mmol/L (136-145)
[2024-06-09 05:22] LABS: Albumin 2.6 g/dL (3.2-4.8); Bilirubin, Total 0.5 mg/dL (0.2-1.0); Phosphorus 4.7 mg/dL (2.4-5.1); Total Protein 4.6 g/dL (5.7-8.2)
--- NOTE | 2024-06-09 06:32 | DVHPN2 ---
Progress Note - Dictate Date Seen: Jun 09, 2024 Medical Necessity Reason Pt with a Central, PICC or Fol: Yes The following are medically ne: Central Line, Grewal Catheter Reason for grewal catheter: Strict I&O vital signs Vital Sign Date Time Temp Pulse Resp B/P (MAP) Pulse Ox O2 Delivery O2 Flow Rate FiO2 06/09/24 06:06 125 18 93/55 (68) 98 50 06/09/24 06:00 99.7 211.5 06/09/24 06:00 Mechanical Ventilator+ 06/08/24 18:00 2 Total Intake and Output 06/08/24 06/08/24 06/09/24 15:00 23:00 07:00 Intake Total 664 ml 853.75 ml 2237.25 ml Output Total 200 ml 100 ml Balance 664 ml 653.75 ml 2137.25 ml medications Current Medications Medications Dose Ordered Sig/Jason Route Start Time Stop Time Status Last Admin Dose Admin Ondansetron HCl 4 mg Q4HP PRN IV 05/22/24 15:00 06/06/24 02:47 4 MG Acetaminophen 650 mg Q6HP PRN PO 05/22/24 15:00 05/29/24 21:55 650 MG Citalopram Hydrobromide 20 mg DAILY PO 05/23/24 10:00 06/03/24 09:22 20 MG Hydralazine HCl 10 mg Q6HP PRN IV 05/23/24 05:00 05/24/24 01:34 10 MG Prochlorperazine Edisylate 10 mg Q6HP PRN IV 05/23/24 12:00 06/04/24 12:42 10 MG Atorvastatin Calcium 20 mg DAILY PO 05/24/24 10:00 06/03/24 09:22 20 MG Nortriptyline HCl 50 mg HS PO 05/23/24 22:00 06/05/24 21:48 50 MG Tamsulosin HCl 0.4 mg QPM PO 05/23/24 18:00 06/03/24 17:52 0.4 MG Enteral Nutritional Formula 27.5 gm BIDWM PO 05/27/24 18:00 05/31/24 10:54 27.5 GM Enteral Nutritional Formula 240 ml TIDWM PO 06/01/24 18:00 06/03/24 18:30 240 ML Acetaminophen/ Hydrocodone Bitart 1 tab Q4HPRN PRN PO 06/02/24 14:30 Docusate Calcium 240 mg DAILY PO 06/03/24 12:33 06/03/24 19:44 240 MG Metoprolol Tartrate 10 mg BID PO 06/03/24 22:00 UNV Sennosides 8.6 mg DAILYP PO 06/03/24 12:33 06/03/24 13:52 8.6 MG Duloxetine HCl 60 mg DAILY PO 06/03/24 12:34 06/03/24 13:52 60 MG Metoprolol Tartrate 25 mg BID PO 06/03/24 22:00 Hold 06/03/24 22:43 25 MG Norepinephrine Bitartrate 250 ml @ 3.75 mls/hr Q24H IV 06/04/24 13:30 06/09/24 04:11 56.25 MLS/HR Piperacillin Sod/ Tazobactam Sod 100 ml @ 25 mls/hr Q12HR IV 06/04/24 15:00 06/08/24 22:40 25 MLS/HR Enoxaparin Sodium 100 mg DAILY SC 06/05/24 10:00 06/07/24 10:08 100 MG Metoprolol Tartrate 5 mg Q4HP PRN IV 06/05/24 11:15 Hold Pantoprazole Sodium 40 mg DAILY IV 06/06/24 10:00 06/08/24 09:59 40 MG Dextrose/Sodium Chloride 1,000 ml @ 100 mls/hr Q10H IV 06/07/24 13:15 06/09/24 05:51 100 MLS/HR Amino Acids 0 ml @ 0 mls/hr PER PHARMACY IV 06/07/24 13:30 Diagnostic Test (Pha) 1 strip Q6HR 06/07/24 18:00 06/09/24 05:29 1 STRIP Insulin Human Regular FOLLOW SLIDING SCALE Q6HR SC 06/07/24 18:00 06/09/24 05:31 8 UNITS Dextrose 50 ml UD IV 06/07/24 14:15 Diltiazem HCl 10 mg Q6H IV 06/07/24 22:00 06/08/24 10:39 10 MG Morphine Sulfate 2 mg Q4HPRN PRN IV 06/08/24 10:45 Fat Emulsion Intravenous 50 ml/ Sodium Phosphate 20 meq/Potassium Phosphate 22 meq/ Magnesium Sulfate 8 meq/ Multivitamins 10 ml/Chromium/ Copper/Manganese/ Zinc 1 ml/Amino Acids/Dextrose 873 ml @ 36 mls/hr [id number] IV 06/08/24 20:00 06/09/24 19:59 06/08/24 22:20 36 MLS/HR Midazolam HCl 50 ml @ 3 mls/hr [id number] IV 06/08/24 15:45 06/08/24 21:52 4 MLS/HR Fentanyl Citrate 250 ml @ 10 mls/hr Q24H IV 06/08/24 15:45 06/08/24 15:40 10 MLS/HR laboratory and microbiology Laboratory Tests 06/09/24 04:25 Test 06/09/24 04:25 Range/Units Serum Glucose 283 H 74-106 mg/dL Assessment/Plan s/p Laparotomy (found to have contained bowel perforation, abscess) transferred to ICU On pressure support. On IV BB/CCB Had mechanical fall and found to have hip fracture. S/p ORIF Patient is a 74-year-old gentleman who presented on May 22, 2024 for epigastric pain. It seems that he ate sandwich in this was followed by repeated abdominal pain and vomiting. He has been admitted with small-bowel obstruction. He also was found to have gallstones and gastric outlet obstruction. He has been seen by surgery and GI. He has been having NG tube. Patient does have history of paroxysmal AFib and is on Eliquis as outpatient. On 05/24 2024, the patient was found to have tachyarrhythmia and cardiology was involved for its evaluation and management. Telemetry revealed tachyarrhythmia in the rate of 150s. Tele was in favor of SVT. Patient was attached to the monitor and 6 mg of adenosine was given which resulted in breaking of the tachyarrhythmia inpatient been back to sinus rhythm. As per patient, he usually follows with Cardiology in [facility]. As per patient, he did have angiogram (cardiac catheterization some years ago and was told that it was normal findings). Lying flat in bed and not in acute distress. No JVD. Mucosa is pink and wet. No carotid bruit. No goiter. Lungs are clear to auscultation. At the time of evaluation the patient started to be in tachyarrhythmia and in palpitation. Later, heart rate decreased. No thrill/gallop. Abdomen is soft. Extremities do not reveal edema Past medical history includes atrial fibrillation (on Eliquis as outpatient), DJD, heart failure (diastolic), COPD, hypertension, hyperlipidemia, reported diabetes mellitus, obesity, old history of tonsillectomy and gastric bypass surgery. He is known to have kidney stones. Echocardiogram of January 2020 revealed ejection fraction of 60% and biatrial enlargement Troponin (high sensitive): 19 - 11 TSH: 3.28 CT of the abdomen and pelvis revealed: IMPRESSION: 1. Cholelithiasis with the gallbladder distended. 2. Postop changes to the stomach with a fluid-filled distended stomach and dilated fluid-filled small bowel findings suggest small bowel obstruction. 3. Multiple bilateral nonobstructing renal calculi. 4. Prosthesis in the right hip. Chest x-ray revealed: Frontal chest radiograph demonstrates no acute osseous or superficial soft tissue abnormalities. Enteric tube visualized overlying the plane of the stomach. The trachea is midline. The cardiac silhouette and mediastinum are within normal limits. No pneumothorax, pleural effusions, or consolidations. Partially visualized gaseous distended loops of bowel. HIDA scan reported: IMPRESSION: 1. Findings may reflect chronic cholecystitis, cannot exclude acute cholecystitis due to lack of 30-60 minute images. KUB revealed: IMPRESSION: Findings concerning for small bowel obstruction versus ileus. Repeat KUB revealed: FINDINGS/IMPRESSION: Dilated loops of small bowel with gas and stool visualized in the colon. Findings appear improved compared to prior exam. Repeat KUB revealed: IMPRESSION: 1. There are air-filled dilated small bowel loops. Air and stool is seen within the colon. The findings appear mildly improved comparison to the prior study. The findings fairly stable and May relate to an ileus.. Clinical correlation and continued follow-up is recommended Repeat KUB revealed: Impression: 1. Nonobstructive bowel gas pattern. Gallbladder ultrasound reported: FINDINGS: Examination is limited. The gallbladder appears distended. The gallbladder wall measures 2 mm in thickness, within normal limits. Possible sludge in the gallbladder. Negative reported sonographic valladares's sign. The common bile duct measures 6 mm in diameter, within normal limits. The liver measures at the upper limits of normal in size, at 16.4 cm in craniocaudal dimension. Heterogeneous echotexture of the liver. The pancreas is obscured by bowel gas. The right kidney measures 9.6 cm. There is no hydronephrosis. Limited evaluation of the right kidney. Echogenic focus, possible renal calculus at the midpole measuring 1.4 cm. The patient does have renal calculi on recent CT exam. IMPRESSION: 1. Limited examination as described above. Possible gallbladder sludge and distended gallbladder. No sonographic evidence of acute cholecystitis. 2. Additional nonacute findings as described above. HIDA scan revealed: Impression: 1. Unremarkable hepatobiliary study without evidence of acute cholecystitis. Left Hip Xry: FINDINGS/IMPRESSION: There is a displaced and impacted left intertrochanteric fracture. Patient is status post right hip arthroplasty. EKG revealed SVT Tele revealed SVT which later transitioned into sinus rhythm Echocardiogram revealed: Technically limited study secondary to poor acoustic windows. Left ventricle: Mild concentric left ventricular hypertrophy was seen. LVEF was 55-60%. Right ventricle was normal size with normal systolic function. Both atria were mildly dilated. Aortic valve was not well visualized. Aortic sclerosis with no stenosis was observed. [id number] aortic insufficiency was observed. Mild mitral/tricuspid regurgitation was seen. Tricuspid valve was not well visualized. Right ventricular systolic pressure was assessed around 25 mm Hg. There was no pericardial effusion. Ascending aorta was 4.5 cm. Patient is a 74-year-old gentleman who presented with abdominal pain and is being managed for small bowel obstruction. He does have history of paroxysmal AFib. Has not been taking his medications regularly and this was followed with tachyarrhythmia. Tachyarrhythmia was in favor of SVT. SVT responded to adenosine Small-bowel obstruction Obesity History of gastric bypass Paroxysmal AFib SVT Status post adenosine management Diabetes mellitus Obesity, morbid Gallstone Renal stone s/p laparotomy bowel perforation Cardiac suggestion for management: For now, manage in ICU Follow-up electrolytes and kidney function tests and correct abnormalities Keep potassium above 4 and magnesium above 2 Continue Cardizem Continue metoprolol tartrate Fluid resuscitation Surgery and GI follow up Long-term continuation of anticoagulation is suggested (for now patient on Lovenox). .. Further evaluation and management depends on the above and clinical course A total of 55 minutes was spent reviewing the patient record, examining the patient, making a diagnostic and therapeutic plan, discussing this plan with medical personnel, following up on diagnostic studies and following the patient for clinical stability excluding any and all procedures. At least 50% of this time was spent in direct, [id number] contact. Thank you for allowing me to participate in this patient's care. Further recommendations will depend on patient's clinical course. Please do not hesitate to contact me if you have any questions or concerns. This medical document was created using electronic medical record system with [employer] computerized dictation system. Although this document has been carefully reviewed, there may still be some phonetic and typographical errors. These areas are purely typographical due to the imperfection of the software programs, and do not reflect any compromise in the patient's medical care. Dietary Evaluation Review Comments: 1. advance diet as tolerated per MD 2. Consider EN/TPN if Pt remains NPO for 48 hours Expected Outcomes/Goals: 1. Pt will consume >75% estimated needs within 2-3 days Plan discussed with: Other (nurse) BROOKS PRITCHARD MD Jun 09, 2024 06:32
[2024-06-09] MEDS: PHENYLEPHRINE IV 250 ML IV SCH (07:30)
[2024-06-09] MEDS: VASOPRESSIN 20 UNITS in SODIUM CHL 0.9% 99 ML IV SCH (08:08)
[2024-06-09] MEDS: SODIUM CHLORIDE 0.9% 500 ML IV ONE ×2 (08:12→10:15)
[2024-06-09 08:39] LABS: Base Excess -11.8 mmol/L (-2.0-3.0)
--- NOTE | 2024-06-09 09:28 | DVHPN2 ---
Progress Note Date Seen: Jun 09, 2024 Medical Necessity Reason Pt with a Central, PICC or Fol: Yes The following are medically ne: Central Line, Grewal Catheter Reason for grewal catheter: Strict I&O Objective vital signs Vital Sign Date Time Temp Pulse Resp B/P (MAP) Pulse Ox O2 Delivery O2 Flow Rate FiO2 06/09/24 09:00 99.7 106 18 132/59 (83) 100 211.5 06/09/24 07:47 50 06/09/24 06:00 Mechanical Ventilator+ 06/08/24 18:00 2 Total Intake and Output 06/08/24 06/08/24 06/09/24 15:00 23:00 07:00 Intake Total 664 ml 853.75 ml 2469.00 ml Output Total 200 ml 100 ml Balance 664 ml 653.75 ml 2369.00 ml medications Current Medications Medications Dose Ordered Sig/Jason Route Start Time Stop Time Status Last Admin Dose Admin Ondansetron HCl 4 mg Q4HP PRN IV 05/22/24 15:00 06/06/24 02:47 4 MG Acetaminophen 650 mg Q6HP PRN PO 05/22/24 15:00 05/29/24 21:55 650 MG Citalopram Hydrobromide 20 mg DAILY PO 05/23/24 10:00 06/03/24 09:22 20 MG Hydralazine HCl 10 mg Q6HP PRN IV 05/23/24 05:00 05/24/24 01:34 10 MG Prochlorperazine Edisylate 10 mg Q6HP PRN IV 05/23/24 12:00 06/04/24 12:42 10 MG Atorvastatin Calcium 20 mg DAILY PO 05/24/24 10:00 06/03/24 09:22 20 MG Nortriptyline HCl 50 mg HS PO 05/23/24 22:00 06/05/24 21:48 50 MG Tamsulosin HCl 0.4 mg QPM PO 05/23/24 18:00 06/03/24 17:52 0.4 MG Enteral Nutritional Formula 27.5 gm BIDWM PO 05/27/24 18:00 05/31/24 10:54 27.5 GM Enteral Nutritional Formula 240 ml TIDWM PO 06/01/24 18:00 06/03/24 18:30 240 ML Acetaminophen/ Hydrocodone Bitart 1 tab Q4HPRN PRN PO 06/02/24 14:30 Docusate Calcium 240 mg DAILY PO 06/03/24 12:33 06/03/24 19:44 240 MG Metoprolol Tartrate 10 mg BID PO 06/03/24 22:00 UNV Sennosides 8.6 mg DAILYP PO 06/03/24 12:33 06/03/24 13:52 8.6 MG Duloxetine HCl 60 mg DAILY PO 06/03/24 12:34 06/03/24 13:52 60 MG Metoprolol Tartrate 25 mg BID PO 06/03/24 22:00 Hold 06/03/24 22:43 25 MG Norepinephrine Bitartrate 250 ml @ 3.75 mls/hr Q24H IV 06/04/24 13:30 06/09/24 08:21 52.5 MLS/HR Piperacillin Sod/ Tazobactam Sod 100 ml @ 25 mls/hr Q12HR IV 06/04/24 15:00 06/08/24 22:40 25 MLS/HR Enoxaparin Sodium 100 mg DAILY SC 06/05/24 10:00 06/07/24 10:08 100 MG Metoprolol Tartrate 5 mg Q4HP PRN IV 06/05/24 11:15 Hold Pantoprazole Sodium 40 mg DAILY IV 06/06/24 10:00 06/08/24 09:59 40 MG Dextrose/Sodium Chloride 1,000 ml @ 100 mls/hr Q10H IV 06/07/24 13:15 06/09/24 05:51 100 MLS/HR Amino Acids 0 ml @ 0 mls/hr PER PHARMACY IV 06/07/24 13:30 Diagnostic Test (Pha) 1 strip Q6HR 06/07/24 18:00 06/09/24 05:29 1 STRIP Insulin Human Regular FOLLOW SLIDING SCALE Q6HR SC 06/07/24 18:00 06/09/24 05:31 8 UNITS Dextrose 50 ml UD IV 06/07/24 14:15 Diltiazem HCl 10 mg Q6H IV 06/07/24 22:00 06/08/24 10:39 10 MG Morphine Sulfate 2 mg Q4HPRN PRN IV 06/08/24 10:45 Fat Emulsion Intravenous 50 ml/ Sodium Phosphate 20 meq/Potassium Phosphate 22 meq/ Magnesium Sulfate 8 meq/ Multivitamins 10 ml/Chromium/ Copper/Manganese/ Zinc 1 ml/Amino Acids/Dextrose 873 ml @ 36 mls/hr [id number] IV 06/08/24 20:00 06/09/24 19:59 06/08/24 22:20 36 MLS/HR Midazolam HCl 50 ml @ 3 mls/hr [id number] IV 06/08/24 15:45 06/08/24 21:52 4 MLS/HR Fentanyl Citrate 250 ml @ 10 mls/hr Q24H IV 06/08/24 15:45 06/08/24 15:40 10 MLS/HR Vasopressin 20 units/Sodium Chloride 100 ml @ 9 mls/hr Q11H7M IV 06/09/24 07:30 06/09/24 08:08 9 MLS/HR Phenylephrine HCl 250 ml @ 30 mls/hr Q8H20M IV 06/09/24 07:30 Acetaminophen 650 mg Q6HP PRN AL 06/09/24 08:15 laboratory and microbiology Laboratory Tests 06/09/24 04:25 Test 06/09/24 04:25 Range/Units Serum Glucose 283 H 74-106 mg/dL Microbiology Date/Time Source Procedure Growth Status 06/04/24 19:00 Nose MRSA Screen - Final Complete Problem List/Assessment/Plan Problem List/Assessment/Plan AFEBRILE VSS INTUBATED DEHYDRATED ON VASOPRESSOR TRENDING DOWN ABD SOFT DISTENDED UPPER ABD TENDER RLQ NO BM WBC ELEVATED URINE OUTPUT IMPROVED CONDITION CRITICAL CONTINUE SUPPORTIVE CARE NURSE AT BEDSIDE Plan discussed with: Other My Orders My Orders Orders - MARTHA ALVARES MD Procedure Category Date Status Time * Picc Line Consult CONS 06/08/24 Transmitted 10:25 Morphine Sulfate PHA 06/08/24 In Process Injection 10:45 Obtain Consent For: ORDERS 06/08/24 Transmitted 11:39 Tpn Per Pharmacy DEANNA 06/08/24 In Process 20:00 Gram Stain NELL 06/08/24 In Process 13:16 Routine Bacterial NELL 06/08/24 In Process Culture 13:16 Anaerobic Culture NELL 06/08/24 In Process 13:16 Ventilator Orders RT 06/08/24 Transmitted 15:20 Abg W/ Co-Ox RT 06/08/24 Logged 15:35 Respiratory Culture NELL 06/08/24 In Process W/ Gs 15:46 Ng To Lcs DEANNA 06/08/24 In Process 20:21 Dietary Evaluation Review Comments: 1. advance diet as tolerated per MD 2. Consider EN/TPN if Pt remains NPO for 48 hours Expected Outcomes/Goals: 1. Pt will consume >75% estimated needs within 2-3 days MARTHA ALVARES MD Jun 09, 2024 09:28
[2024-06-09] MEDS: MAGNESIUM SULFATE 1GM/100ML 100 ML IV SCH (10:25)
[2024-06-09 11:04] LABS: Base Excess -9.5 mmol/L (-2.0-3.0)
[2024-06-09] MEDS: LACTATED RINGER'S 1,000 ML IV SCH (11:30)
--- NOTE | 2024-06-09 14:34 | DVHPN2 ---
Progress Note - Dictate Date Seen: Jun 09, 2024 Medical Necessity Reason Pt with a Central, PICC or Fol: Yes The following are medically ne: Central Line, Rgewal Catheter Reason for grewal catheter: Strict I&O vital signs Vital Sign Date Time Temp Pulse Resp B/P (MAP) Pulse Ox O2 Delivery O2 Flow Rate FiO2 06/09/24 14:27 133/46 06/09/24 13:42 74 24 100 30 06/09/24 10:15 99.1 210.4 06/09/24 08:00 Mechanical Ventilator+ 06/08/24 18:00 2 Total Intake and Output 06/08/24 06/08/24 06/09/24 15:00 23:00 07:00 Intake Total 664 ml 853.75 ml 2469.00 ml Output Total 200 ml 100 ml Balance 664 ml 653.75 ml 2369.00 ml medications Current Medications Medications Dose Ordered Sig/Jason Route Start Time Stop Time Status Last Admin Dose Admin Ondansetron HCl 4 mg Q4HP PRN IV 05/22/24 15:00 06/06/24 02:47 4 MG Acetaminophen 650 mg Q6HP PRN PO 05/22/24 15:00 05/29/24 21:55 650 MG Citalopram Hydrobromide 20 mg DAILY PO 05/23/24 10:00 06/03/24 09:22 20 MG Hydralazine HCl 10 mg Q6HP PRN IV 05/23/24 05:00 05/24/24 01:34 10 MG Prochlorperazine Edisylate 10 mg Q6HP PRN IV 05/23/24 12:00 06/04/24 12:42 10 MG Atorvastatin Calcium 20 mg DAILY PO 05/24/24 10:00 06/03/24 09:22 20 MG Nortriptyline HCl 50 mg HS PO 05/23/24 22:00 06/05/24 21:48 50 MG Tamsulosin HCl 0.4 mg QPM PO 05/23/24 18:00 06/03/24 17:52 0.4 MG Enteral Nutritional Formula 27.5 gm BIDWM PO 05/27/24 18:00 05/31/24 10:54 27.5 GM Enteral Nutritional Formula 240 ml TIDWM PO 06/01/24 18:00 06/03/24 18:30 240 ML Acetaminophen/ Hydrocodone Bitart 1 tab Q4HPRN PRN PO 06/02/24 14:30 Docusate Calcium 240 mg DAILY PO 06/03/24 12:33 06/03/24 19:44 240 MG Metoprolol Tartrate 10 mg BID PO 06/03/24 22:00 UNV Sennosides 8.6 mg DAILYP PO 06/03/24 12:33 06/03/24 13:52 8.6 MG Duloxetine HCl 60 mg DAILY PO 06/03/24 12:34 06/03/24 13:52 60 MG Metoprolol Tartrate 25 mg BID PO 06/03/24 22:00 Hold 06/03/24 22:43 25 MG Norepinephrine Bitartrate 250 ml @ 3.75 mls/hr Q24H IV 06/04/24 13:30 06/09/24 14:27 18.75 MLS/HR Piperacillin Sod/ Tazobactam Sod 100 ml @ 25 mls/hr Q12HR IV 06/04/24 15:00 06/09/24 10:08 25 MLS/HR Enoxaparin Sodium 100 mg DAILY SC 06/05/24 10:00 06/09/24 10:20 100 MG Metoprolol Tartrate 5 mg Q4HP PRN IV 06/05/24 11:15 Hold Pantoprazole Sodium 40 mg DAILY IV 06/06/24 10:00 06/09/24 10:04 40 MG Amino Acids 0 ml @ 0 mls/hr PER PHARMACY IV 06/07/24 13:30 Diagnostic Test (Pha) 1 strip Q6HR 06/07/24 18:00 06/09/24 12:00 1 STRIP Insulin Human Regular FOLLOW SLIDING SCALE Q6HR SC 06/07/24 18:00 06/09/24 12:37 8 UNITS Dextrose 50 ml UD IV 06/07/24 14:15 Diltiazem HCl 10 mg Q6H IV 06/07/24 22:00 06/08/24 10:39 10 MG Morphine Sulfate 2 mg Q4HPRN PRN IV 06/08/24 10:45 Fat Emulsion Intravenous 50 ml/ Sodium Phosphate 20 meq/Potassium Phosphate 22 meq/ Magnesium Sulfate 8 meq/ Multivitamins 10 ml/Chromium/ Copper/Manganese/ Zinc 1 ml/Amino Acids/Dextrose 873 ml @ 36 mls/hr [id number] IV 06/08/24 20:00 06/09/24 19:59 06/08/24 22:20 36 MLS/HR Midazolam HCl 50 ml @ 3 mls/hr [id number] IV 06/08/24 15:45 06/09/24 11:15 12 MLS/HR Fentanyl Citrate 250 ml @ 10 mls/hr Q24H IV 06/08/24 15:45 06/09/24 14:00 27.5 MLS/HR Vasopressin 20 units/Sodium Chloride 100 ml @ 9 mls/hr Q11H7M IV 06/09/24 07:30 06/09/24 08:08 9 MLS/HR Phenylephrine HCl 250 ml @ 30 mls/hr Q8H20M IV 06/09/24 07:30 Acetaminophen 650 mg Q6HP PRN IN 06/09/24 08:15 Lactated Ringer's 1,000 ml @ 100 mls/hr Q10H IV 06/09/24 10:00 06/09/24 11:30 100 MLS/HR Fat Emulsion Intravenous 100 ml/Sodium Acetate 20 meq/Potassium Acetate 30 meq/ Magnesium Sulfate 12 meq/ Multivitamins 10 ml/Chromium/ Copper/Manganese/ Zinc 1 ml/Insulin Human Regular 6 units/Amino Acids/ Dextrose 989.06 ml @ 41 mls/hr Q24H8M IV 06/09/24 20:00 06/10/24 19:59 objective General Appearance: alert, no distress HEENT: EOMI, PERRLA, normal external inspect of ears, no icterus, no nasal drainage Neck: no carotid bruit, no jugular venous distention (JVD), no lymphadenopathy Chest: normal thorax Respiratory: clear to auscultation, normal air movement Cardiovascular: regular rate and rhythm, no diastolic murmur, no jugular venous distention (JVD), no rub, no systolic murmur Abdominal: soft, no hepatomegaly, no mass, no splenomegaly, no tenderness Genitourinary: grossly normal external Musculoskeletal: no joint tenderness, no swelling Extremities: normal pulses, no calf tenderness, no clubbing, no cyanosis, no edema Skin: no bruising, no jaundice, no rash Neurological: alert, No focal deficit laboratory and microbiology Laboratory Tests 06/09/24 04:25 Test 06/09/24 04:25 Range/Units Serum Glucose 283 H 74-106 mg/dL Problem List 1. Small bowel obstruction Monitor, surgical consult, GI consult, NPO 2. HLD Monitor 3. Persistent atrial fibrillation Monitor, full dose Lovenox 4. Obesity Monitor 5. Hx gastric bypass Monitor 6. Benign essential HTN Monitor, antihypertensives 7. Gallstones Monitor, surgical consult, GI consult, NPO, HIDA scan 8. Sepsis Monitor 9. Septic Shock Monitor 10. Acute renal failure Monitor, nephrology consult Assessment/Plan Subjective Patient remains intubated and sedated. Objective Patient had emergency surgery yesterday for intra-abdominal abscess, lysis of adhesions, small bowel resection, and revision of gastric bypass anastomosis. Patient also reported had a bowel perforation. ID has been consulted. Patient reportedly is on vasopressors. Currently with Yuriy-Synephrine and vasopressin. Patient is on LR at 100 and IV antibiotics with Zosyn. TPN. Plan Initiate vancomycin per pharmacy. Awaiting ID recommendations. Continue Zosyn. Continue to wean off vasopressors. Ventilator management per pulmonary. Dietary Evaluation Review Comments: 1. advance diet as tolerated per MD 2. Consider EN/TPN if Pt remains NPO for 48 hours Expected Outcomes/Goals: 1. Pt will consume >75% estimated needs within 2-3 days Plan discussed with: Patient, Other T[employer]O [employer] Jun 09, 2024 14:34
[2024-06-09 14:43] LABS: Base Excess -9.3 mmol/L (-2.0-3.0)
[2024-06-09] MEDS ORDERED: VANCOMYCIN PER PHARMACY 0 MG IV SCH (14:45)
[2024-06-09 15:54] LABS: Alanine Aminotransferase 17 U/L (7-40); Alkaline Phosphatase 64 U/L (46-116); Anion Gap 9 (5-15); Aspartate Aminotransferase 25 U/L (13-40); BUN/Creatinine Ratio 26.1 (10.0-20.0); Bilirubin, Total 0.4 mg/dL (0.2-1.0); Calcium 8.1 mg/dL (8.7-10.4); Carbon Dioxide 21 mmol/L (20-31); Chloride 110 mmol/L (98-107); Glucose 253 mg/dL (74-106); Magnesium 2.1 mg/dL (1.6-2.6); Phosphorus 3.9 mg/dL (2.4-5.1); Potassium 3.7 mmol/L (3.5-5.1); Sodium 140 mmol/L (136-145); Total Protein 3.5 g/dL (5.7-8.2)
--- NOTE | 2024-06-09 15:56 | DVHINCON2 ---
Reason for Consultation Abdominal pain ruling out food poisoning. History of Present Illness Patient is a 74-year-old male, brought in by ambulance, presented to the hospital for the complaint of abdominal pain. Patient's past medical history is significant for hip surgery in 2013 which may be associated to the chief compliant of abdominal pain. He reported that he was eating a sandwich and immediately after that he started to feel abdominal pain which radiated up into the chest, caused chest pressure. Patient noted that he ate the sandwich on 05/21/24. EMS stated that the patient complained of having a C[place] and having soft stools. Upon evaluation, the patient reported mild abdominal distention with pain. The patient was concerned about his symptoms and would like to be further evaluated and treated. He admitted under hospitalist care to the medical-surgical unit. The patient was initially admitted for abdominal pain and was found to have a small bowel obstruction versus ileus. Several small bowel series were done which apparently showed resolution. However, the patient began experiencing progressive emesis and abdominal pain. The patient was also evaluated by GI, and there was a high suspicion for possible ischemic bowel. A higher level of care was considered, but the transfer was denied. The patient has a history of Dave-en-Y gastric bypass. Hemoglobin is 11.2. The patient has acute renal failure, which had resolved as of 06/07/24. The patient was intubated and placed in the ICU following emergent surgery. Past Medical History Past medical history is significant for AFIB, Arthritis, CHF, COPD, High Lipids and HTN. Past Surgical History Tonsillectomy. Total hip replacement (Right in 2013) Family History: Alcoholism Cancer Cancer of colon Family history: Arthritis Family history: Asthma Family history: Blood disorder Family history: Cardiovascular disease Family history: Depression (situation) Family history: Diabetes mellitus Family history: Glaucoma Family history: Hypercholesterolemia (situation) Family history: Hypertension Family history: Thyroid disorder Malignant melanoma Malignant neoplasm of ovary Seizure disorder (situation) Stroke No Family History of: Family history: Alzheimer's disease Family history: Congenital anomaly Family history: Coronary thrombosis Family history: Diabetes in Family history: Osteoporosis Family history: Suicide (situation) Ischemic heart disease Malignant neoplasm of breast Malignant neoplasm of lung Prostate cancer Renal stone Social History Smoke: No ALCOHOL: none Drugs: None Lives: with Family Domestic Violence: Neg Allergies: Coded Allergies: Amiodarone (Verified Allergy, Unknown, 08/11/20) Diphenhydramine (Verified Allergy, Unknown, 08/11/20) Furosemide (Verified Allergy, Unknown, 08/11/20) Ibuprofen (Verified Allergy, Unknown, 08/11/20) Naproxen (Verified Allergy, Unknown, 08/11/20) Sulfa Drugs (Verified Allergy, Unknown, 08/11/20) Home Meds Active Scripts Prednisone (Prednisone) 20 Mg Tab, 60 MG PO DAILY for 3 Days, #9 MG Prov:REILLY REYES DO 12/13/21 Apixaban Base (ELIQUIS) 5 Mg Tab, 5 MG PO BID, #60 TAB Prov:JUANY ROBERTS MD 02/07/20 Metoprolol Tartrate (Lopressor) 25 Mg Tb, 12.5 MG PO BID, #30 TAB Check blood pressure and pulse prior to dose. Hold medication if systolic blood pressure is below 120 or pulse less than 70 Prov:JUANY ROBERTS MD 02/07/20 Reported Medications Allopurinol (Allopurinol) 300 Mg Tab, 300 MG PO Q12HR for 30 Days, MG 05/23/24 Duloxetine Hcl (Cymbalta) 60 Mg Cap, 1 CAP PO DAILY, #90 CAP 3 Refills 05/23/24 Omeprazole (Gnp Omeprazole) 20 Mg Tab, 1 TAB PO DAILY, #90 TAB 1 Refill 05/23/24 Tamsulosin Hcl (Tamsulosin Hcl) 0.4 Mg Cap, 0.4 MG PO QPM for 30 Days, MG 05/23/24 Diltiazem Hcl (Diltiazem Hcl) 60 Mg Tab, 60 MG PO BID for 30 Days, MG 05/23/24 Atorvastatin Calcium (Lipitor) 20 Mg Tab, 1 TAB PO DAILY, #90 TAB 1 Refill 05/23/24 Docusate Sodium (Colace) 100 Mg Cap, 1 CAP PO BID, #30 CAP 05/23/24 Pseudoephedrine HCl ([facility] 12 Hour Nasal [place]) 120 Mg Tab, 60 MG PO BID, TAB 05/23/24 Cetirizine Hcl (Kls Aller-Maria Teresa) 10 Mg Tab, 1 TAB PO DAILY, #30 TAB 3 Refills 05/23/24 Metoprolol Tartrate (Metoprolol Tartrate) 25 Mg Tab, 10 MG PO BID for 30 Days, MG 02/21/20 Lisinopril (Lisinopril) 10 Mg Tab, 10 MG PO BID for 30 Days, MG 02/21/20 Diazepam (Diazepam) 10 Mg Tab, 30 MG PO BID, TAB 02/21/20 Hydrochlorothiazide (Hydrochlorothiazide) 12.5 Mg Cap, 12.5 MG PO DAILY for 30 Days, MG 02/21/20 Nortriptyline Hcl (PAMELOR CAPSULE) 25 Mg Cp, 50 MG PO HS, CP 03/27/14 Allopurinol (Zyloprim) 100 Mg Tab 01/24/13 Omeprazole (Sm Omeprazole) 20 Mg Tab, 40 MG PO DAILY 01/24/13 Docusate Calcium (Sb Stool Softener) 240 Mg Cap, PO 01/24/13 Nitroglycerin (Nitroglycerin) 0.4 Mg Sl, DAILYP 01/24/13 Trazodone Hcl (Trazodone Hcl) 100 Mg Tab, PO HS 01/24/13 Atorvastatin Calcium (ATORVASTATIN CALCIUM) 40 Mg Tab, PO HS 01/24/13 Senna (Sennosides) 8.6 Mg Tab, PO DAILYP 01/24/13 Potassium Chloride (K-Tabs) 10 Meq Tab, PO DAILY 01/24/13 Multiple Vitamin (Mvi Tab) 1 Tab Tb 01/13/12 [place]-3 Fatty Acids (Fish Oil) 1,000 Mg Cap 01/13/12 Epinephrine Hcl (Anaphylaxis) (Epipen) 0.3 Mg Inj 01/13/12 Citalopram Hydrobromide (Citalopram Hydrobromide) 20 Mg Tab 01/13/12 Cholecalciferol (D 400) 400 Unit Chw 01/13/12 Albuterol Sulfate (Albuterol Sulfate) 0.5 % Neb 01/13/12 Current Medications Current Medications Medications (Trade) Dose Ordered Sig/Jason Route PRN Reason Start Time Stop Time Status Last Admin Fat Emulsion Intravenous 50 ml/ Sodium Phosphate 20 meq/Potassium Phosphate 22 meq/ Magnesium Sulfate 8 meq/ Multivitamins 10 ml/Chromium/ Copper/Manganese/ Zinc 1 ml/Amino Acids/Dextrose 873 ml @ 36 mls/hr [id number] IV 06/08/24 20:00 06/09/24 19:59 06/08/24 22:20 Midazolam HCl 50 ml @ 3 mls/hr [id number] IV 06/08/24 15:45 06/09/24 11:15 Fentanyl Citrate 250 ml @ 10 mls/hr Q24H IV 06/08/24 15:45 06/09/24 14:00 Naloxone HCl (Narcan) 0.4 mg Q10M PRN IV NARCOTIC REVERSAL 06/08/24 15:45 06/08/24 16:06 DC Morphine Sulfate 2 mg Q2HPRN PRN IV BREAKTHROUGH PAIN (7-10) 06/08/24 15:45 06/08/24 16:01 DC Midazolam HCl (Versed Injection) 1 mg Q10M PRN IV ANXIETY 06/08/24 15:45 06/08/24 16:26 DC Ephedrine Sulfate (ePHEDrine SULFATE) 10 mg Q10M PRN IV SBP LESS THAN 90 06/08/24 15:45 06/08/24 16:26 DC Fentanyl Citrate 25 mcg Q1HP PRN IV BREAKTHROUGH PAIN (7-10) 06/08/24 15:45 06/08/24 16:01 DC Morphine Sulfate 2 mg Q4H PRN IV BREAKTHRU PAIN SCALE 7-10 06/08/24 15:45 06/08/24 19:46 DC Vasopressin 20 units/Sodium Chloride 100 ml @ 9 mls/hr Q11H7M IV 06/09/24 07:30 06/09/24 08:08 Phenylephrine HCl 250 ml @ 30 mls/hr Q8H20M IV 06/09/24 07:30 Acetaminophen (Tylenol Suppository) 650 mg Q6HP PRN MI PAIN SCALE 1-3 OR TEMP>100.4 06/09/24 08:15 Magnesium Sulfate/ Dextrose 100 ml @ 100 mls/hr Q1HR IV 06/09/24 10:00 06/09/24 11:59 DC 06/09/24 11:19 Lactated Ringer's 1,000 ml @ 100 mls/hr Q10H IV 06/09/24 10:00 06/09/24 11:30 Fat Emulsion Intravenous 100 ml/Sodium Acetate 20 meq/Potassium Acetate 30 meq/ Magnesium Sulfate 12 meq/ Multivitamins 10 ml/Chromium/ Copper/Manganese/ Zinc 1 ml/Insulin Human Regular 6 units/Amino Acids/ Dextrose 989.06 ml @ 41 mls/hr Q24H8M IV 06/09/24 20:00 06/10/24 19:59 Vancomycin HCl 0 ml @ 0 mls/hr UD IV 06/09/24 14:45 UNV Review of Systems Patient is intubated. Vital Signs Vital Signs Date Time Temp Pulse Resp B/P (MAP) Pulse Ox O2 Delivery O2 Flow Rate FiO2 06/09/24 15:17 76 24 118/46 (70) 100 30 06/09/24 15:00 97.9 208.2 06/09/24 14:00 Mechanical Ventilator+ 06/08/24 18:00 2 Physical Exam Patient was taken emergently to the O.R. for exploratory laparotomy and required surgery performed by Dr. Lorenz. Labs/Diagnostic Data Labs Test 06/09/24 15:02 06/09/24 14:38 06/09/24 12:27 06/09/24 10:56 Range/Units Blood Gas Specimen Type Arterial Blood Gas Sample Site Arterial line Blood Gas Patient Temperature 37.0 Arterial Blood Date Drawn [id number] Arterial Blood pH 7.332 L 7.350-7.450 Arterial Blood Partial Pressure CO2 30.0 L 35.0-48.0 mmHg Arterial Blood Partial Pressure O2 91.8 83.0-108.0 mmHg Arterial Blood HCO3 15.5 L 21.0-28.0 mmol/L Arterial Blood Oxygen Saturation 95.9 94.0-98.0 % Arterial Blood Base Excess -9.3 L -2.0-3.0 mmol/L Arterial Blood Oxyhemoglobin 94.8 94.0-98.0 % Arterial Blood Carboxyhemoglobin 0.8 0.5-1.5 % Arterial Blood Methemoglobin 0.3 0.0-1.5 % Mich Test N/a Blood Gas Total Hemoglobin 9.20 L 13.5-17.5 g/dL Blood Gas Set Respiration Rate 24.0 Blood Gas Modality Vent - ac FiO2 % 30.0 Blood Gas Tidal Volume 500.0 Blood Gas PEEP or CPAP 5.0 POC Glucose 204 H 70-106 mg/dl Blood Gas Critical Value Read Back Yes Blood Gas Notified Whom Dr elías contreras Blood Gas Notified Time [id number] Blood Gas Notified By Addie peraza Test 06/09/24 04:25 06/09/24 00:35 06/08/24 04:48 06/07/24 09:48 Range/Units White Blood Count 14.1 H 4.4-10.8 10^3/uL Red Blood Count 3.77 L 4.5-5.90 10^6/uL Hemoglobin 11.2 L 13.5-17.5 g/dL Hematocrit 35.6 #L 41.0-53.0 % Mean Corpuscular Volume 94.5 80.0-100.0 fL Mean Corpuscular Hemoglobin 29.6 28.0-32.0 pg Mean Corpuscular Hemoglobin Concent 31.3 L 32.0-36.0 g/dL Red Cell Distribution Width 17.6 H 11.8-14.3 % Platelet Count 401 140-450 10^3/uL Mean Platelet Volume 7.9 6.9-10.8 fL Neutrophils (%) (Auto) 91.0 H 37.0-80.0 % Lymphocytes (%) (Auto) 2.4 L 10.0-50.0 % Monocytes (%) (Auto) 6.4 0.0-12.0 % Eosinophils (%) (Auto) 0.1 0.0-7.0 % Basophils (%) (Auto) 0.1 0.0-2.0 % Neutrophils # (Auto) 12.9 H 1.6-8.6 10 ^3/uL Lymphocytes # (Auto) 0.3 L 0.4-5.4 10 ^3/uL Monocytes # (Auto) 0.9 0-1.3 10 ^3/uL Eosinophils # (Auto) 0 0-0.8 10 ^3/uL Basophils # (Auto) 0 0-0.2 10 ^3/uL Nucleated Red Blood Cells 0.1 % B-Type Natriuretic Peptide 59.94 0-100 pg/mL Blood Gas Spontaneous Rate 26 Blood Gas Spontaneous Tidal Volume 555 Blood Gas Inspiratory Pressure 20.0 Bl Gas Inspiratory/Expiratory Ratio 1:2 Prothrombin Time 11.9 H 9.3-11.8 sec Prothrombin Time INR 1.13 0.9-1.15 Activated Partial Thromboplast Time 31.0 24.5-34.5 SEC Triglycerides Level 83 < 150 mg/dL Lactic Acid Level 1.6 0.4-2.0 mmol/L Test 06/07/24 05:09 06/04/24 21:00 06/04/24 16:37 05/26/24 15:33 Range/Units Differential Total Cells Counted 100.0 100 Neutrophils % (Manual) 73 37.0-80.0 Band Neutrophils % (Manual) 14 Lymphocytes % (Manual) 9 L 10.0-50.0 Monocytes % (Manual) 4 0-12 Eosinophils % (Manual) 0 0-7 Basophils % (Manual) 0 0.0-2.0 Metamyelocytes % (manual) 0 Myelocytes % (Manual) 0 Promyelocytes % (Manual) 0 Blast Cells % (Manual) 0 Reactive Lymphocytes 0 Platelet Estimate Increased Urine Color Yellow Yellow Urine Clarity Turbid H Clear Urine pH 5.0 5.0-9.0 Urine Specific [place] 1.019 1.001-1.035 Urine Protein 1+ H Negative Urine Ketones Trace Negative Urine Blood Trace H Negative /uL Urine Nitrite Negative Negative Urine Bilirubin 1+ Negative Urine Urobilinogen 2 H Negative mg/dL Urine Leukocyte Esterase 1+ Negative /uL Urine RBC 26 0 - 3 /hpf Urine WBC 17 0 - 3 /hpf Urine Squamous Epithelial Cells Few <5 /hpf Urine Bacteria Few H None Seen /hpf Urine Hyaline Casts Few 0 - 2 /lpf Urine Mucus Few None Seen Urine Osmolality 337 mOsm/kg Urine Creatinine 146.30 H 30.0-125.0 mg/dL Urine Protein/Creatinine Ratio 0.75 Urine Sodium 17 L 40-220 mmol/L Urine Glucose Normal Normal mg/dL Urine Total Protein 109.2 H 1-14 mg/dL Vitamin D 25-Hydroxy 35.8 30.0-100 ng/mL Parathyroid Hormone (Intact) 235.7 H 18.4-80.1 pg/mL Hepatitis B Surface Antigen Negative Negative Hepatitis C Antibody Negative Negative Hemoglobin A1c 5.2 <5.7 % A1C Test 05/24/24 05:26 05/22/24 10:29 Range/Units Troponin I High Sensitivity 11 </=54 ng/L Cholesterol Level 144 < 200 mg/dL LDL Cholesterol 80 < 100 mg/dL HDL Cholesterol 48 40-59 mg/dL Thyroid Stimulating Hormone (TSH) 3.28 0.55-4.78 uIU/mL Microbiology Date/Time Source Procedure Growth Status 06/08/24 15:20 Trachea Gram Stain Pending Resulted 06/08/24 15:20 Trachea Respiratory Culture - Preliminary Resulted Assessment Patient is a 74-year-old male presented to the clinic with 1. Small bowel obstruction 2. HLD 3. Persistent atrial fibrillation 4. Obesity 5. Hx gastric bypass 6. Benign essential HTN 7. Gallstones 8. Sepsis 9. Septic Shock 10. Acute renal failure Plan/Recommendation Patient remains intubated in the ICU. ANA GIPSON MD Jun 09, 2024 15:56
[2024-06-09 16:05] LABS: Blood Urea Nitrogen 43 mg/dL (9-23)
--- NOTE | 2024-06-09 16:13 | DVHPN2 ---
Progress Note - Dictate Date Seen: Jun 09, 2024 Medical Necessity Reason Pt with a Central, PICC or Fol: Yes The following are medically ne: Central Line, Grewal Catheter Reason for grewal catheter: Strict I&O Subjective Postop day number one S/P exploratory laparotomy ;currently intubated sedated FiO2 30% peep of five PROCEDURES: Exploratory laparotomy with drainage of intra-abdominal abscess, lysis of adhesions, and small bowel resection and anastomosis with revision of the distal gastric bypass anastomosis. vital signs Vital Sign Date Time Temp Pulse Resp B/P (MAP) Pulse Ox O2 Delivery O2 Flow Rate FiO2 06/09/24 15:17 76 24 118/46 (70) 100 30 06/09/24 15:00 97.9 208.2 06/09/24 14:00 Mechanical Ventilator+ 06/08/24 18:00 2 Total Intake and Output 06/08/24 06/08/24 06/09/24 15:00 23:00 07:00 Intake Total 664 ml 853.75 ml 2469.00 ml Output Total 200 ml 100 ml Balance 664 ml 653.75 ml 2369.00 ml medications Current Medications Medications Dose Ordered Sig/Jason Route Start Time Stop Time Status Last Admin Dose Admin Ondansetron HCl 4 mg Q4HP PRN IV 05/22/24 15:00 06/06/24 02:47 4 MG Acetaminophen 650 mg Q6HP PRN PO 05/22/24 15:00 05/29/24 21:55 650 MG Citalopram Hydrobromide 20 mg DAILY PO 05/23/24 10:00 06/03/24 09:22 20 MG Hydralazine HCl 10 mg Q6HP PRN IV 05/23/24 05:00 05/24/24 01:34 10 MG Prochlorperazine Edisylate 10 mg Q6HP PRN IV 05/23/24 12:00 06/04/24 12:42 10 MG Atorvastatin Calcium 20 mg DAILY PO 05/24/24 10:00 06/03/24 09:22 20 MG Nortriptyline HCl 50 mg HS PO 05/23/24 22:00 06/05/24 21:48 50 MG Tamsulosin HCl 0.4 mg QPM PO 05/23/24 18:00 06/03/24 17:52 0.4 MG Enteral Nutritional Formula 27.5 gm BIDWM PO 05/27/24 18:00 05/31/24 10:54 27.5 GM Enteral Nutritional Formula 240 ml TIDWM PO 06/01/24 18:00 06/03/24 18:30 240 ML Acetaminophen/ Hydrocodone Bitart 1 tab Q4HPRN PRN PO 06/02/24 14:30 Docusate Calcium 240 mg DAILY PO 06/03/24 12:33 06/03/24 19:44 240 MG Metoprolol Tartrate 10 mg BID PO 06/03/24 22:00 UNV Sennosides 8.6 mg DAILYP PO 06/03/24 12:33 06/03/24 13:52 8.6 MG Duloxetine HCl 60 mg DAILY PO 06/03/24 12:34 06/03/24 13:52 60 MG Metoprolol Tartrate 25 mg BID PO 06/03/24 22:00 Hold 06/03/24 22:43 25 MG Norepinephrine Bitartrate 250 ml @ 3.75 mls/hr Q24H IV 06/04/24 13:30 06/09/24 14:27 18.75 MLS/HR Piperacillin Sod/ Tazobactam Sod 100 ml @ 25 mls/hr Q12HR IV 06/04/24 15:00 06/09/24 10:08 25 MLS/HR Enoxaparin Sodium 100 mg DAILY SC 06/05/24 10:00 06/09/24 10:20 100 MG Metoprolol Tartrate 5 mg Q4HP PRN IV 06/05/24 11:15 Hold Pantoprazole Sodium 40 mg DAILY IV 06/06/24 10:00 06/09/24 10:04 40 MG Amino Acids 0 ml @ 0 mls/hr PER PHARMACY IV 06/07/24 13:30 Diagnostic Test (Pha) 1 strip Q6HR 06/07/24 18:00 06/09/24 12:00 1 STRIP Insulin Human Regular FOLLOW SLIDING SCALE Q6HR SC 06/07/24 18:00 06/09/24 12:37 8 UNITS Dextrose 50 ml UD IV 06/07/24 14:15 Diltiazem HCl 10 mg Q6H IV 06/07/24 22:00 06/08/24 10:39 10 MG Morphine Sulfate 2 mg Q4HPRN PRN IV 06/08/24 10:45 Fat Emulsion Intravenous 50 ml/ Sodium Phosphate 20 meq/Potassium Phosphate 22 meq/ Magnesium Sulfate 8 meq/ Multivitamins 10 ml/Chromium/ Copper/Manganese/ Zinc 1 ml/Amino Acids/Dextrose 873 ml @ 36 mls/hr [id number] IV 06/08/24 20:00 06/09/24 19:59 06/08/24 22:20 36 MLS/HR Midazolam HCl 50 ml @ 3 mls/hr [id number] IV 06/08/24 15:45 06/09/24 15:52 12 MLS/HR Fentanyl Citrate 250 ml @ 10 mls/hr Q24H IV 06/08/24 15:45 06/09/24 14:00 27.5 MLS/HR Vasopressin 20 units/Sodium Chloride 100 ml @ 9 mls/hr Q11H7M IV 06/09/24 07:30 06/09/24 08:08 9 MLS/HR Phenylephrine HCl 250 ml @ 30 mls/hr Q8H20M IV 06/09/24 07:30 Acetaminophen 650 mg Q6HP PRN ID 06/09/24 08:15 Lactated Ringer's 1,000 ml @ 100 mls/hr Q10H IV 06/09/24 10:00 06/09/24 11:30 100 MLS/HR Fat Emulsion Intravenous 100 ml/Sodium Acetate 20 meq/Potassium Acetate 30 meq/ Magnesium Sulfate 12 meq/ Multivitamins 10 ml/Chromium/ Copper/Manganese/ Zinc 1 ml/Insulin Human Regular 6 units/Amino Acids/ Dextrose 989.06 ml @ 41 mls/hr Q24H8M IV 06/09/24 20:00 06/10/24 19:59 Vancomycin HCl 0 ml @ 0 mls/hr UD IV 06/09/24 14:45 Vancomycin HCl 250 ml @ 250 mls/hr Q1H IV 06/09/24 15:45 06/09/24 17:44 objective General Appearance: Intubated sedated HEENT: EOMI, PERRLA, normal external inspect of ears, no icterus, no nasal drainage Neck: no carotid bruit, no jugular venous distention (JVD), no lymphadenopathy Chest: normal thorax Respiratory: clear to auscultation, normal air movement Cardiovascular: regular rate and rhythm, no diastolic murmur, no jugular venous distention (JVD), no rub, no systolic murmur Abdominal: soft, no hepatomegaly, no mass, no splenomegaly, dressing dry binder in place GIANNA drain Musculoskeletal: no joint tenderness, no swelling Extremities: normal pulses, no calf tenderness, no clubbing, no cyanosis, no edema Skin: no bruising, no jaundice, no rash Neurological: alert, No focal deficit laboratory and microbiology Laboratory Tests 06/09/24 15:02 06/09/24 04:25 Test 06/09/24 15:02 Range/Units Serum Glucose 253 H 74-106 mg/dL Problems(with codes): (1) INTESTINAL OBSTRUCT NOS (2) N&V (nausea and vomiting) Prognosis Plan Keep NPO NG tube to low intermittent suction IV TPN IV antibiotics ID consult appreciated Supportive care ventilatory support I will follow up patient with you Prognosis remains guarded Dietary Evaluation Review Comments: 1. advance diet as tolerated per MD 2. Consider EN/TPN if Pt remains NPO for 48 hours Expected Outcomes/Goals: 1. Pt will consume >75% estimated needs within 2-3 days Plan discussed with: Other (ICU nurse) SRINIVASAN ALVARES MD Jun 09, 2024 16:13
[2024-06-09] MEDS: VANCOMYCIN 1GM/250ML 250 ML IV SCH (17:32)
--- NOTE | 2024-06-09 18:51 | DVHNC2 ---
Procedure - Bronchoscopy procedure note: Indications: Increased ET tube secretions, Possible mucous plugging. Medicines: See eviscerator notes. Complications: None Procedure: Patient medications and allergies reviewed. The risks and benefits of the procedure and the sedation options and risk were discussed with the patient's healthcare proxy. All questions were answered and informed consent was obtained. Patient identification and proposed procedure were verified prior to the procedure by the physician, and a nurse, and the respiratory therapist in ICU room. The heart rate, respiratory rate, oxygen saturations, blood pressure, adequacy of pulmonary ventilation, and response to care were monitored throughout the procedure. The physical status of the patient was reassessed after the procedure. After obtaining informed consent, the bronchoscope was introduced through the endotracheal tube and advanced into the trachea bronchial tree of both lungs. The procedure was accomplished without difficulty. The patient tolerated the procedure well. Findings: The trachea is in normal caliber. The gary is sharp. The tracheobronchial tree of the right lung was examined to at least the first subsegmental level. The bronchial mucosa and anatomy in the right lung are normal. There are no endobronchial lesions. There was scant secretions noted in Right lower lobe. Right middle lobe (RML) Bronchoalveolar lavage (BAL) obtained. RML BAL sent for gram stain and culture, and fungal culture. The left upper lobe, lingula, and left lower lobe were examined to at least the first subsegmental level. Bronchial mucosa and anatomy in the left upper lobe and lingula are normal. There were no endobronchial lesions. There was scant secretions throughout. There was no active bleeding at the completion of the procedure. I examined the oropharynx and there was copious pooled secretions in the oropharynx that were likely responsible for previous suctioned secretions. These were cleared out to prevent future aspiration of secretions. Estimated blood loss: Less than 5 mL. Impression: Left lower lobe atelectasis due to mucous plugging Mucous plugging from L6-L10 RML BAL performed Recommendation: Follow-up RML BAL results. Procedure codes: 77963, bronchoscopy, rigid and flexible, including fluoroscopic guidance, one performed; with bronchial endobronchial broncho-alveolar lavage, single or multiple sites PRISCILLA CORREA MD Jun 09, 2024 18:51
--- NOTE | 2024-06-09 19:58 | DVHPN2 ---
Progress Note - Dictate Date Seen: Jun 09, 2024 Medical Necessity Reason Pt with a Central, PICC or Fol: Yes The following are medically ne: Central Line, Grewal Catheter Reason for grewal catheter: Strict I&O Subjective Patient seen and examined at bedside. Sedated, intubated on mechanical ventilator. Overnight events reviewed. vital signs Vital Sign Date Time Temp Pulse Resp B/P (MAP) Pulse Ox O2 Delivery O2 Flow Rate FiO2 06/09/24 19:30 98.4 83 24 102/45 (64) 100 209.1 116/45 (68) 06/09/24 18:01 30 06/09/24 18:00 Mechanical Ventilator+ 06/08/24 18:00 2 Total Intake and Output 06/08/24 06/08/24 06/09/24 15:00 23:00 07:00 Intake Total 664 ml 853.75 ml 2469.00 ml Output Total 200 ml 100 ml Balance 664 ml 653.75 ml 2369.00 ml medications Current Medications Medications Dose Ordered Sig/Jason Route Start Time Stop Time Status Last Admin Dose Admin Ondansetron HCl 4 mg Q4HP PRN IV 05/22/24 15:00 06/06/24 02:47 4 MG Acetaminophen 650 mg Q6HP PRN PO 05/22/24 15:00 05/29/24 21:55 650 MG Citalopram Hydrobromide 20 mg DAILY PO 05/23/24 10:00 06/03/24 09:22 20 MG Hydralazine HCl 10 mg Q6HP PRN IV 05/23/24 05:00 05/24/24 01:34 10 MG Prochlorperazine Edisylate 10 mg Q6HP PRN IV 05/23/24 12:00 06/04/24 12:42 10 MG Atorvastatin Calcium 20 mg DAILY PO 05/24/24 10:00 06/03/24 09:22 20 MG Nortriptyline HCl 50 mg HS PO 05/23/24 22:00 06/05/24 21:48 50 MG Tamsulosin HCl 0.4 mg QPM PO 05/23/24 18:00 06/03/24 17:52 0.4 MG Enteral Nutritional Formula 27.5 gm BIDWM PO 05/27/24 18:00 05/31/24 10:54 27.5 GM Enteral Nutritional Formula 240 ml TIDWM PO 06/01/24 18:00 06/03/24 18:30 240 ML Acetaminophen/ Hydrocodone Bitart 1 tab Q4HPRN PRN PO 06/02/24 14:30 Docusate Calcium 240 mg DAILY PO 06/03/24 12:33 06/03/24 19:44 240 MG Metoprolol Tartrate 10 mg BID PO 06/03/24 22:00 UNV Sennosides 8.6 mg DAILYP PO 06/03/24 12:33 06/03/24 13:52 8.6 MG Duloxetine HCl 60 mg DAILY PO 06/03/24 12:34 06/03/24 13:52 60 MG Metoprolol Tartrate 25 mg BID PO 06/03/24 22:00 Hold 06/03/24 22:43 25 MG Norepinephrine Bitartrate 250 ml @ 3.75 mls/hr Q24H IV 06/04/24 13:30 06/09/24 14:27 18.75 MLS/HR Metoprolol Tartrate 5 mg Q4HP PRN IV 06/05/24 11:15 Hold Pantoprazole Sodium 40 mg DAILY IV 06/06/24 10:00 06/09/24 10:04 40 MG Amino Acids 0 ml @ 0 mls/hr PER PHARMACY IV 06/07/24 13:30 Diagnostic Test (Pha) 1 strip Q6HR 06/07/24 18:00 06/09/24 17:59 1 STRIP Insulin Human Regular FOLLOW SLIDING SCALE Q6HR SC 06/07/24 18:00 06/09/24 17:57 8 UNITS Dextrose 50 ml UD IV 06/07/24 14:15 Diltiazem HCl 10 mg Q6H IV 06/07/24 22:00 06/08/24 10:39 10 MG Morphine Sulfate 2 mg Q4HPRN PRN IV 06/08/24 10:45 Fat Emulsion Intravenous 50 ml/ Sodium Phosphate 20 meq/Potassium Phosphate 22 meq/ Magnesium Sulfate 8 meq/ Multivitamins 10 ml/Chromium/ Copper/Manganese/ Zinc 1 ml/Amino Acids/Dextrose 873 ml @ 36 mls/hr [id number] IV 06/08/24 20:00 06/09/24 19:59 06/08/24 22:20 36 MLS/HR Midazolam HCl 50 ml @ 3 mls/hr [id number] IV 06/08/24 15:45 06/09/24 15:52 12 MLS/HR Fentanyl Citrate 250 ml @ 10 mls/hr Q24H IV 06/08/24 15:45 06/09/24 14:00 27.5 MLS/HR Vasopressin 20 units/Sodium Chloride 100 ml @ 9 mls/hr Q11H7M IV 06/09/24 07:30 06/09/24 08:08 9 MLS/HR Phenylephrine HCl 250 ml @ 30 mls/hr Q8H20M IV 06/09/24 07:30 Acetaminophen 650 mg Q6HP PRN MT 06/09/24 08:15 Lactated Ringer's 1,000 ml @ 100 mls/hr Q10H IV 06/09/24 10:00 06/09/24 11:30 100 MLS/HR Fat Emulsion Intravenous 100 ml/Sodium Acetate 20 meq/Potassium Acetate 30 meq/ Magnesium Sulfate 12 meq/ Multivitamins 10 ml/Chromium/ Copper/Manganese/ Zinc 1 ml/Insulin Human Regular 6 units/Amino Acids/ Dextrose 989.06 ml @ 41 mls/hr Q24H8M IV 06/09/24 20:00 06/10/24 19:59 Vancomycin HCl 0 ml @ 0 mls/hr UD IV 06/09/24 14:45 Piperacillin Sod/ Tazobactam Sod 100 ml @ 25 mls/hr Q8H IV 06/09/24 18:30 Enoxaparin Sodium 100 mg Q12HR SC 06/09/24 22:00 objective Gen.: Patient lying in bed in medical ICU. Sedated, intubated on mechanical ventilator. Head: Normocephalic, atraumatic. Eyes: PERRLA. Ears: Normal external anatomy. Throat: Endotracheal tube and orogastric tube in place. Neck: Supple, trachea midline. Chest: Transmitted breath sounds bilaterally. Decreased air entry bilaterally. No wheezing. Bibasilar crackles. Cardiovascular: Positive S1, positive S2. Regular rate and rhythm. Abdomen: Positive bowel sounds in all 4 quadrants. Soft, nontender, nondistended. : Grewal in place. Normal external genitalia. Rectal: Deferred. Skin: Warm, dry. Intact. Extremities: 2+ radial pulses bilaterally. No lower extremity edema. Neuro: Sedated. laboratory and microbiology Laboratory Tests 06/09/24 15:02 06/09/24 04:25 Test 06/09/24 15:02 Range/Units Serum Glucose 253 H 74-106 mg/dL Assessment/Plan Impression: Septic shock Acute hypoxic respiratory failure Acute kidney injury Small bowel obstruction Atrial fibrillation Hx of gastric bypass ([id number]) Obesity, BMI 34.2 Events: S/p intubation on mechanical ventilator. On AC mode; RR 18, VT 500, PEEP of 5, FiO2 50% Sedated on Versed and Fentanyl. Pressors for hemodynamic support On Levophed 26 mcg/min Titrate to keep mean arterial pressure greater than 65 mmHg. Patient was taken to OR, s/p exploratory laparotomy with lysis of adhesions. Spot check CVP. IV fluid bolus. Amiodarone drip. Wound care. Patient noted to have low CVP (4 cmH2O), hypovolemic. Start LR at 100 ml/hr for IV fluid hydration Stop D5W + NS. Continue antibiotics Clinimix for nutritional support. GI recommendations appreciated Monitor hemoglobin Transfuse if less than 7.0 g/dL. Monitor renal function Monitor electrolytes. Supplement as necessary. Rest of plan as noted below. Plan: S/p central line placement. Needed for administration of pressors. S/p intubation on mechanical ventilator. On AC mode; RR 18, VT 500, PEEP of 5, FiO2 50% Sedated on Versed and Fentanyl. Antibiotics Pressors as necessary for hemodynamic support Titrate to keep mean arterial pressure greater than 65 mmHg. GI recommendations appreciated. Monitor WBC Hemoglobin - monitor Monitor renal function. Monitor electrolytes. Supplement as necessary. Monitor ins and outs. Creatinine trending down. Diet and lifestyle modifications discussed Obesity - complicates all care. DVT prophylaxis. Prognosis: Poor given patient's multiple co-morbidities. Condition: Critical Rest of plan per hospitalist and other consultants. A total of 35 minutes of critical care time was spent reviewing the patient record, examining the patient, making a diagnostic and therapeutic plan, discussing this plan with the medical personnel, following up on diagnostic studies and following the patient for clinical stability excluding any and all procedures. At least 50% of this time was spent in direct, [id number] contact. Thank you S JENNA Mcnamara, for allowing me to participate in this patient's care. Further recommendations will depend on the patient's clinical course. Please do not hesitate to contact me if you have any questions or concerns. This medical document was created using an electronic medical record system with [employer] computerized dictation system. Although these documentations are being carefully reviewed, there may still be some phonetic and typographical changes. The errors are purely typographical, due to imperfection on the software program, and do not reflect any compromise in the patient's medical care Dietary Evaluation Review Comments: 1. advance diet as tolerated per MD 2. Consider EN/TPN if Pt remains NPO for 48 hours Expected Outcomes/Goals: 1. Pt will consume >75% estimated needs within 2-3 days Plan discussed with: Other (NIRAV Steele) Critical Care Time(min): 35 PRISCILLA CORREA MD Jun 09, 2024 19:58
[2024-06-09] MEDS: TPN PER PHARMACY IV NR (20:00)
[2024-06-09] MEDS: PIPERACILLIN-TAZOB 3.375GM 100 ML IV SCH (21:06)
[2024-06-09] MEDS: ENOXAPARIN SOD 100 MG/1 ML SYRINGE SC SCH (21:12)
--- NOTE | 2024-06-09 21:29 | DVHPN2 ---
Progress Note Date Seen: Jun 09, 2024 Medical Necessity Reason Pt with a Central, PICC or Fol: Yes The following are medically ne: Central Line, Grewal Catheter Reason for grewal catheter: Strict I&O Subjective Patient reports: Other (events noted) Objective vital signs Vital Sign Date Time Temp Pulse Resp B/P (MAP) Pulse Ox O2 Delivery O2 Flow Rate FiO2 06/09/24 20:45 98.4 88 24 101/46 (64) 93 209.1 117/43 (67) 06/09/24 20:00 30 06/09/24 20:00 Mechanical Ventilator+ 06/08/24 18:00 2 Total Intake and Output 06/08/24 06/08/24 06/09/24 15:00 23:00 07:00 Intake Total 664 ml 853.75 ml 2469.00 ml Output Total 200 ml 100 ml Balance 664 ml 653.75 ml 2369.00 ml medications Current Medications Medications Dose Ordered Sig/Jason Route Start Time Stop Time Status Last Admin Dose Admin Ondansetron HCl 4 mg Q4HP PRN IV 05/22/24 15:00 06/06/24 02:47 4 MG Acetaminophen 650 mg Q6HP PRN PO 05/22/24 15:00 05/29/24 21:55 650 MG Citalopram Hydrobromide 20 mg DAILY PO 05/23/24 10:00 06/03/24 09:22 20 MG Hydralazine HCl 10 mg Q6HP PRN IV 05/23/24 05:00 05/24/24 01:34 10 MG Prochlorperazine Edisylate 10 mg Q6HP PRN IV 05/23/24 12:00 06/04/24 12:42 10 MG Atorvastatin Calcium 20 mg DAILY PO 05/24/24 10:00 06/03/24 09:22 20 MG Nortriptyline HCl 50 mg HS PO 05/23/24 22:00 06/05/24 21:48 50 MG Tamsulosin HCl 0.4 mg QPM PO 05/23/24 18:00 06/03/24 17:52 0.4 MG Enteral Nutritional Formula 27.5 gm BIDWM PO 05/27/24 18:00 05/31/24 10:54 27.5 GM Enteral Nutritional Formula 240 ml TIDWM PO 06/01/24 18:00 06/03/24 18:30 240 ML Acetaminophen/ Hydrocodone Bitart 1 tab Q4HPRN PRN PO 06/02/24 14:30 Docusate Calcium 240 mg DAILY PO 06/03/24 12:33 06/03/24 19:44 240 MG Metoprolol Tartrate 10 mg BID PO 06/03/24 22:00 UNV Sennosides 8.6 mg DAILYP PO 06/03/24 12:33 06/03/24 13:52 8.6 MG Duloxetine HCl 60 mg DAILY PO 06/03/24 12:34 06/03/24 13:52 60 MG Metoprolol Tartrate 25 mg BID PO 06/03/24 22:00 Hold 06/03/24 22:43 25 MG Norepinephrine Bitartrate 250 ml @ 3.75 mls/hr Q24H IV 06/04/24 13:30 06/09/24 14:27 18.75 MLS/HR Metoprolol Tartrate 5 mg Q4HP PRN IV 06/05/24 11:15 Hold Pantoprazole Sodium 40 mg DAILY IV 06/06/24 10:00 06/09/24 10:04 40 MG Amino Acids 0 ml @ 0 mls/hr PER PHARMACY IV 06/07/24 13:30 Diagnostic Test (Pha) 1 strip Q6HR 06/07/24 18:00 06/09/24 17:59 1 STRIP Insulin Human Regular FOLLOW SLIDING SCALE Q6HR SC 06/07/24 18:00 06/09/24 17:57 8 UNITS Dextrose 50 ml UD IV 06/07/24 14:15 Diltiazem HCl 10 mg Q6H IV 06/07/24 22:00 06/08/24 10:39 10 MG Morphine Sulfate 2 mg Q4HPRN PRN IV 06/08/24 10:45 Midazolam HCl 50 ml @ 3 mls/hr [id number] IV 06/08/24 15:45 06/09/24 20:27 10 MLS/HR Fentanyl Citrate 250 ml @ 10 mls/hr Q24H IV 06/08/24 15:45 06/09/24 14:00 27.5 MLS/HR Vasopressin 20 units/Sodium Chloride 100 ml @ 9 mls/hr Q11H7M IV 06/09/24 07:30 06/09/24 08:08 9 MLS/HR Phenylephrine HCl 250 ml @ 30 mls/hr Q8H20M IV 06/09/24 07:30 Acetaminophen 650 mg Q6HP PRN AK 06/09/24 08:15 Lactated Ringer's 1,000 ml @ 100 mls/hr Q10H IV 06/09/24 10:00 06/09/24 21:26 100 MLS/HR Fat Emulsion Intravenous 100 ml/Sodium Acetate 20 meq/Potassium Acetate 30 meq/ Magnesium Sulfate 12 meq/ Multivitamins 10 ml/Chromium/ Copper/Manganese/ Zinc 1 ml/Insulin Human Regular 6 units/Amino Acids/ Dextrose 989.06 ml @ 41 mls/hr Q24H8M IV 06/09/24 20:00 06/10/24 19:59 06/09/24 20:00 41 MLS/HR Vancomycin HCl 0 ml @ 0 mls/hr UD IV 06/09/24 14:45 Piperacillin Sod/ Tazobactam Sod 100 ml @ 25 mls/hr Q8H IV 06/09/24 18:30 06/09/24 21:06 25 MLS/HR Enoxaparin Sodium 100 mg Q12HR SC 06/09/24 22:00 06/09/24 21:12 100 MG Examination: LUNGS:Abnormal, ABDOMEN:Abnormal laboratory and microbiology Laboratory Tests 06/09/24 15:02 06/09/24 04:25 Test 06/09/24 15:02 Range/Units Serum Glucose 253 H 74-106 mg/dL Microbiology Date/Time Source Procedure Growth Status 06/09/24 18:42 Lung Pending Resulted 06/09/24 18:42 Lung Pending Resulted 06/09/24 18:42 Lung Pending Resulted 06/09/24 18:42 Lung Pending Resulted 06/09/24 18:42 Lung - Final See Separate Report... Resulted Problem List/Assessment/Plan Problem List/Assessment/Plan SYBIL secondary to hemodynamic mediated, FeNa < 1% (Cr 1.0 on admission 05/22/24) Dehydration BPH with LUTS Septic shock Leukocytosis Bilateral nonobstructing nephrolithiasis s/p ORIF left hip 05/27 Hypotension Chronic diastolic HF A fib Abdominal pain Small-bowel obstruction on NG suction h/o gastric bypass Hypokalemia Hypomagnesemia vdrf post op REC: ivf continue OR noted in icu Plan discussed with: Other Dietary Evaluation Review Comments: 1. advance diet as tolerated per MD 2. Consider EN/TPN if Pt remains NPO for 48 hours Expected Outcomes/Goals: 1. Pt will consume >75% estimated needs within 2-3 days PRISCA DON MD Jun 09, 2024 21:29
[2024-06-10] VITALS (104 sets, daily range): BP systolic 79–168; BP diastolic 35–60; PULSE 72–105; RESP 10–25; TEMP 96.8–99.7; O2SAT 90–100
[2024-06-10 04:16] LABS: Basophils # (auto) 0 10 ^3/uL (0-0.2); Basophils % (auto) 0.1 % (0.0-2.0); Lymphocytes # (auto) 0.7 10 ^3/uL (0.4-5.4); Red Cell Distribution Width 17.1 % (11.8-14.3)
[2024-06-10 04:20] LABS: Eosinophils # (auto) 0 10 ^3/uL (0-0.8); Eosinophils % (auto) 0.4 % (0.0-7.0); Hematocrit 24.5 % (41.0-53.0); Lymphocytes % (auto) 6.6 % (10.0-50.0); Mean Corpuscular Hemoglobin 29.4 pg (28.0-32.0); Mean Corpuscular Hgb Conc. 32.6 g/dL (32.0-36.0); Mean Corpuscular Volume 90.3 fL (80.0-100.0); Monocytes # (auto) 0.8 10 ^3/uL (0-1.3); Monocytes % (auto) 7.4 % (0.0-12.0); Neutrophils # (auto) 8.8 10 ^3/uL (1.6-8.6); Neutrophils % (auto) 85.5 % (37.0-80.0); Platelet Count (auto) 264 10^3/uL (140-450); Red Blood Cells 2.71 10^6/uL (4.5-5.90); White Blood Cell 10.2 10^3/uL (4.4-10.8)
[2024-06-10 04:26] LABS: Alanine Aminotransferase 14 U/L (7-40); Albumin 2.2 g/dL (3.2-4.8); Alkaline Phosphatase 81 U/L (46-116); Anion Gap 5 (5-15); Aspartate Aminotransferase 20 U/L (13-40); BUN/Creatinine Ratio 26.8 (10.0-20.0); Bilirubin, Total 0.4 mg/dL (0.2-1.0); Blood Urea Nitrogen 37 mg/dL (9-23); Calcium 8.1 mg/dL (8.7-10.4); Carbon Dioxide 22 mmol/L (20-31); Chloride 111 mmol/L (98-107); Magnesium 1.9 mg/dL (1.6-2.6); Phosphorus 2.9 mg/dL (2.4-5.1); Potassium 3.7 mmol/L (3.5-5.1); Sodium 138 mmol/L (136-145)
[2024-06-10 04:27] LABS: Total Protein 3.9 g/dL (5.7-8.2)
[2024-06-10 04:35] LABS: Glucose 153 mg/dL (74-106)
[2024-06-10 06:22] LABS: Base Excess -6.8 mmol/L (-2.0-3.0)
--- NOTE | 2024-06-10 08:16 | DVHPN2 ---
Progress Note - Dictate Date Seen: Jun 10, 2024 Medical Necessity Reason Pt with a Central, PICC or Fol: Yes The following are medically ne: Central Line, Grewal Catheter Reason for grewal catheter: Strict I&O vital signs Vital Sign Date Time Temp Pulse Resp B/P (MAP) Pulse Ox O2 Delivery O2 Flow Rate FiO2 06/10/24 08:08 81 24 159/55 (89) 99 30 06/10/24 07:30 99.1 210.4 06/10/24 06:00 Mechanical Ventilator+ 06/08/24 18:00 2 Total Intake and Output 06/09/24 06/09/24 06/10/24 15:00 23:00 07:00 Intake Total 1547.00 ml 2134.75 ml 1477.5 ml Output Total 35 ml 825 ml 925 ml Balance 1512.00 ml 1309.75 ml 552.5 ml medications Current Medications Medications Dose Ordered Sig/Jason Route Start Time Stop Time Status Last Admin Dose Admin Ondansetron HCl 4 mg Q4HP PRN IV 05/22/24 15:00 06/06/24 02:47 4 MG Acetaminophen 650 mg Q6HP PRN PO 05/22/24 15:00 05/29/24 21:55 650 MG Citalopram Hydrobromide 20 mg DAILY PO 05/23/24 10:00 06/03/24 09:22 20 MG Hydralazine HCl 10 mg Q6HP PRN IV 05/23/24 05:00 05/24/24 01:34 10 MG Prochlorperazine Edisylate 10 mg Q6HP PRN IV 05/23/24 12:00 06/04/24 12:42 10 MG Atorvastatin Calcium 20 mg DAILY PO 05/24/24 10:00 06/03/24 09:22 20 MG Nortriptyline HCl 50 mg HS PO 05/23/24 22:00 06/05/24 21:48 50 MG Tamsulosin HCl 0.4 mg QPM PO 05/23/24 18:00 06/03/24 17:52 0.4 MG Acetaminophen/ Hydrocodone Bitart 1 tab Q4HPRN PRN PO 06/02/24 14:30 Docusate Calcium 240 mg DAILY PO 06/03/24 12:33 06/03/24 19:44 240 MG Metoprolol Tartrate 10 mg BID PO 06/03/24 22:00 UNV Sennosides 8.6 mg DAILYP PO 06/03/24 12:33 06/03/24 13:52 8.6 MG Duloxetine HCl 60 mg DAILY PO 06/03/24 12:34 06/03/24 13:52 60 MG Metoprolol Tartrate 25 mg BID PO 06/03/24 22:00 Hold 06/03/24 22:43 25 MG Norepinephrine Bitartrate 250 ml @ 3.75 mls/hr Q24H IV 06/04/24 13:30 06/10/24 06:18 15 MLS/HR Metoprolol Tartrate 5 mg Q4HP PRN IV 06/05/24 11:15 Hold Pantoprazole Sodium 40 mg DAILY IV 06/06/24 10:00 06/09/24 10:04 40 MG Amino Acids 0 ml @ 0 mls/hr PER PHARMACY IV 06/07/24 13:30 Diagnostic Test (Pha) 1 strip Q6HR 06/07/24 18:00 06/09/24 23:38 1 STRIP Insulin Human Regular FOLLOW SLIDING SCALE Q6HR SC 06/07/24 18:00 06/10/24 06:00 2 UNITS Dextrose 50 ml UD IV 06/07/24 14:15 Diltiazem HCl 10 mg Q6H IV 06/07/24 22:00 06/08/24 10:39 10 MG Morphine Sulfate 2 mg Q4HPRN PRN IV 06/08/24 10:45 Midazolam HCl 50 ml @ 3 mls/hr Q49H20R IV 06/08/24 15:45 06/10/24 06:16 10 MLS/HR Fentanyl Citrate 250 ml @ 10 mls/hr Q24H IV 06/08/24 15:45 06/09/24 23:01 27.5 MLS/HR Vasopressin 20 units/Sodium Chloride 100 ml @ 9 mls/hr Q11H7M IV 06/09/24 07:30 06/10/24 01:45 9 MLS/HR Phenylephrine HCl 250 ml @ 30 mls/hr Q8H20M IV 06/09/24 07:30 Acetaminophen [address] 06/09/24 08:15 Lactated Ringer's 1,000 ml @ 100 mls/hr Q10H IV 06/09/24 10:00 06/10/24 07:30 100 MLS/HR Fat Emulsion Intravenous 100 ml/Sodium Acetate 20 meq/Potassium Acetate 30 meq/ Magnesium Sulfate 12 meq/ Multivitamins 10 ml/Chromium/ Copper/Manganese/ Zinc 1 ml/Insulin Human Regular 6 units/Amino Acids/ Dextrose 989.06 ml @ 41 mls/hr Q24H8M IV 06/09/24 20:00 06/10/24 19:59 06/09/24 20:00 41 MLS/HR Vancomycin HCl 0 ml @ 0 mls/hr UD IV 06/09/24 14:45 Piperacillin Sod/ Tazobactam Sod 100 ml @ 25 mls/hr Q8H IV 06/09/24 18:30 06/10/24 07:03 25 MLS/HR Enoxaparin Sodium 100 mg Q12HR SC 06/09/24 22:00 06/09/24 21:12 100 MG laboratory and microbiology Laboratory Tests 06/10/24 03:35 Test 06/10/24 03:35 Range/Units Serum Glucose 153 #H 74-106 mg/dL Assessment/Plan s/p Laparotomy (found to have contained bowel perforation, abscess) transferred to ICU On pressure support. On IV BB/CCB Had mechanical fall and found to have hip fracture. S/p ORIF Patient is a 74-year-old gentleman who presented on May 22, 2024 for epigastric pain. It seems that he ate sandwich in this was followed by repeated abdominal pain and vomiting. He has been admitted with small-bowel obstruction. He also was found to have gallstones and gastric outlet obstruction. He has been seen by surgery and GI. He has been having NG tube. Patient does have history of paroxysmal AFib and is on Eliquis as outpatient. On 05/24 2024, the patient was found to have tachyarrhythmia and cardiology was involved for its evaluation and management. Telemetry revealed tachyarrhythmia in the rate of 150s. Tele was in favor of SVT. Patient was attached to the monitor and 6 mg of adenosine was given which resulted in breaking of the tachyarrhythmia inpatient been back to sinus rhythm. As per patient, he usually follows with Cardiology in [facility]. As per patient, he did have angiogram (cardiac catheterization some years ago and was told that it was normal findings). Lying flat in bed and not in acute distress. No JVD. Mucosa is pink and wet. No carotid bruit. No goiter. Lungs are clear to auscultation. At the time of evaluation the patient started to be in tachyarrhythmia and in palpitation. Later, heart rate decreased. No thrill/gallop. Abdomen is soft. Extremities do not reveal edema Past medical history includes atrial fibrillation (on Eliquis as outpatient), DJD, heart failure (diastolic), COPD, hypertension, hyperlipidemia, reported diabetes mellitus, obesity, old history of tonsillectomy and gastric bypass surgery. He is known to have kidney stones. Echocardiogram of January 2020 revealed ejection fraction of 60% and biatrial enlargement Troponin (high sensitive): 19 - 11 TSH: 3.28 CT of the abdomen and pelvis revealed: IMPRESSION: 1. Cholelithiasis with the gallbladder distended. 2. Postop changes to the stomach with a fluid-filled distended stomach and dilated fluid-filled small bowel findings suggest small bowel obstruction. 3. Multiple bilateral nonobstructing renal calculi. 4. Prosthesis in the right hip. Chest x-ray revealed: Frontal chest radiograph demonstrates no acute osseous or superficial soft tissue abnormalities. Enteric tube visualized overlying the plane of the stomach. The trachea is midline. The cardiac silhouette and mediastinum are within normal limits. No pneumothorax, pleural effusions, or consolidations. Partially visualized gaseous distended loops of bowel. HIDA scan reported: IMPRESSION: 1. Findings may reflect chronic cholecystitis, cannot exclude acute cholecystitis due to lack of 30-60 minute images. KUB revealed: IMPRESSION: Findings concerning for small bowel obstruction versus ileus. Repeat KUB revealed: FINDINGS/IMPRESSION: Dilated loops of small bowel with gas and stool visualized in the colon. Findings appear improved compared to prior exam. Repeat KUB revealed: IMPRESSION: 1. There are air-filled dilated small bowel loops. Air and stool is seen within the colon. The findings appear mildly improved comparison to the prior study. The findings fairly stable and May relate to an ileus.. Clinical correlation and continued follow-up is recommended Repeat KUB revealed: Impression: 1. Nonobstructive bowel gas pattern. Gallbladder ultrasound reported: FINDINGS: Examination is limited. The gallbladder appears distended. The gallbladder wall measures 2 mm in thickness, within normal limits. Possible sludge in the gallbladder. Negative reported sonographic valladares's sign. The common bile duct measures 6 mm in diameter, within normal limits. The liver measures at the upper limits of normal in size, at 16.4 cm in craniocaudal dimension. Heterogeneous echotexture of the liver. The pancreas is obscured by bowel gas. The right kidney measures 9.6 cm. There is no hydronephrosis. Limited evaluation of the right kidney. Echogenic focus, possible renal calculus at the midpole measuring 1.4 cm. The patient does have renal calculi on recent CT exam. IMPRESSION: 1. Limited examination as described above. Possible gallbladder sludge and distended gallbladder. No sonographic evidence of acute cholecystitis. 2. Additional nonacute findings as described above. HIDA scan revealed: Impression: 1. Unremarkable hepatobiliary study without evidence of acute cholecystitis. Left Hip Xry: FINDINGS/IMPRESSION: There is a displaced and impacted left intertrochanteric fracture. Patient is status post right hip arthroplasty. EKG revealed SVT Tele revealed SVT which later transitioned into sinus rhythm Echocardiogram revealed: Technically limited study secondary to poor acoustic windows. Left ventricle: Mild concentric left ventricular hypertrophy was seen. LVEF was 55-60%. Right ventricle was normal size with normal systolic function. Both atria were mildly dilated. Aortic valve was not well visualized. Aortic sclerosis with no stenosis was observed. [id number] aortic insufficiency was observed. Mild mitral/tricuspid regurgitation was seen. Tricuspid valve was not well visualized. Right ventricular systolic pressure was assessed around 25 mm Hg. There was no pericardial effusion. Ascending aorta was 4.5 cm. Patient is a 74-year-old gentleman who presented with abdominal pain and is being managed for small bowel obstruction. He does have history of paroxysmal AFib. Has not been taking his medications regularly and this was followed with tachyarrhythmia. Tachyarrhythmia was in favor of SVT. SVT responded to adenosine Small-bowel obstruction Obesity History of gastric bypass Paroxysmal AFib SVT Status post adenosine management Diabetes mellitus Obesity, morbid Gallstone Renal stone s/p laparotomy bowel perforation Cardiac suggestion for management: For now, manage in ICU Follow-up electrolytes and kidney function tests and correct abnormalities Keep potassium above 4 and magnesium above 2 Continue Cardizem Fluid resuscitation Surgery and GI follow up Long-term continuation of anticoagulation is suggested (for now patient on Lovenox). .. Further evaluation and management depends on the above and clinical course A total of 55 minutes was spent reviewing the patient record, examining the patient, making a diagnostic and therapeutic plan, discussing this plan with medical personnel, following up on diagnostic studies and following the patient for clinical stability excluding any and all procedures. At least 50% of this time was spent in direct, [id number] contact. Thank you for allowing me to participate in this patient's care. Further recommendations will depend on patient's clinical course. Please do not hesitate to contact me if you have any questions or concerns. This medical document was created using electronic medical record system with [employer] computerized dictation system. Although this document has been carefully reviewed, there may still be some phonetic and typographical errors. These areas are purely typographical due to the imperfection of the software programs, and do not reflect any compromise in the patient's medical care. Dietary Evaluation Review Comments: 1. advance diet as tolerated per MD 2. Consider EN/TPN if Pt remains NPO for 48 hours Expected Outcomes/Goals: 1. Pt will consume >75% estimated needs within 2-3 days Plan discussed with: Other (nurse) BROOKS PRITCHARD MD Jun 10, 2024 08:16
--- NOTE | 2024-06-10 09:41 | DVHPN2 ---
Progress Note - Dictate Date Seen: Jun 10, 2024 Medical Necessity Reason Pt with a Central, PICC or Fol: Yes The following are medically ne: Central Line, Grewal Catheter Reason for grewal catheter: Strict I&O vital signs Vital Sign Date Time Temp Pulse Resp B/P (MAP) Pulse Ox O2 Delivery O2 Flow Rate FiO2 06/10/24 08:55 127/44 06/10/24 08:08 81 24 99 30 06/10/24 07:30 99.1 210.4 06/10/24 06:00 Mechanical Ventilator+ 06/08/24 18:00 2 Total Intake and Output 06/09/24 06/09/24 06/10/24 15:00 23:00 07:00 Intake Total 1547.00 ml 2134.75 ml 1477.5 ml Output Total 35 ml 825 ml 925 ml Balance 1512.00 ml 1309.75 ml 552.5 ml medications Current Medications Medications Dose Ordered Sig/Jason Route Start Time Stop Time Status Last Admin Dose Admin Ondansetron HCl 4 mg Q4HP PRN IV 05/22/24 15:00 06/06/24 02:47 4 MG Acetaminophen 650 mg Q6HP PRN PO 05/22/24 15:00 05/29/24 21:55 650 MG Citalopram Hydrobromide 20 mg DAILY PO 05/23/24 10:00 06/03/24 09:22 20 MG Hydralazine HCl 10 mg Q6HP PRN IV 05/23/24 05:00 05/24/24 01:34 10 MG Prochlorperazine Edisylate 10 mg Q6HP PRN IV 05/23/24 12:00 06/04/24 12:42 10 MG Atorvastatin Calcium 20 mg DAILY PO 05/24/24 10:00 06/03/24 09:22 20 MG Nortriptyline HCl 50 mg HS PO 05/23/24 22:00 06/05/24 21:48 50 MG Tamsulosin HCl 0.4 mg QPM PO 05/23/24 18:00 06/03/24 17:52 0.4 MG Acetaminophen/ Hydrocodone Bitart 1 tab Q4HPRN PRN PO 06/02/24 14:30 Docusate Calcium 240 mg DAILY PO 06/03/24 12:33 06/03/24 19:44 240 MG Metoprolol Tartrate 10 mg BID PO 06/03/24 22:00 UNV Sennosides 8.6 mg DAILYP PO 06/03/24 12:33 06/03/24 13:52 8.6 MG Duloxetine HCl 60 mg DAILY PO 06/03/24 12:34 06/03/24 13:52 60 MG Metoprolol Tartrate 25 mg BID PO 06/03/24 22:00 Hold 06/03/24 22:43 25 MG Norepinephrine Bitartrate 250 ml @ 3.75 mls/hr Q24H IV 06/04/24 13:30 06/10/24 06:18 15 MLS/HR Metoprolol Tartrate 5 mg Q4HP PRN IV 06/05/24 11:15 Hold Pantoprazole Sodium 40 mg DAILY IV 06/06/24 10:00 06/09/24 10:04 40 MG Amino Acids 0 ml @ 0 mls/hr PER PHARMACY IV 06/07/24 13:30 Diagnostic Test (Pha) 1 strip Q6HR 06/07/24 18:00 06/09/24 23:38 1 STRIP Insulin Human Regular FOLLOW SLIDING SCALE Q6HR SC 06/07/24 18:00 06/10/24 06:00 2 UNITS Dextrose 50 ml UD IV 06/07/24 14:15 Morphine Sulfate 2 mg Q4HPRN PRN IV 06/08/24 10:45 Midazolam HCl 50 ml @ 3 mls/hr [id number] IV 06/08/24 15:45 06/10/24 06:16 10 MLS/HR Fentanyl Citrate 250 ml @ 10 mls/hr Q24H IV 06/08/24 15:45 06/10/24 08:40 27.5 MLS/HR Vasopressin 20 units/Sodium Chloride 100 ml @ 9 mls/hr Q11H7M IV 06/09/24 07:30 06/10/24 01:45 9 MLS/HR Phenylephrine HCl 250 ml @ 30 mls/hr Q8H20M IV 06/09/24 07:30 Acetaminophen 650 mg Q6HP PRN [place] 06/09/24 08:15 Lactated Ringer's 1,000 ml @ 100 mls/hr Q10H IV 06/09/24 10:00 06/10/24 07:30 100 MLS/HR Fat Emulsion Intravenous 100 ml/Sodium Acetate 20 meq/Potassium Acetate 30 meq/ Magnesium Sulfate 12 meq/ Multivitamins 10 ml/Chromium/ Copper/Manganese/ Zinc 1 ml/Insulin Human Regular 6 units/Amino Acids/ Dextrose 989.06 ml @ 41 mls/hr Q24H8M IV 06/09/24 20:00 06/10/24 19:59 06/09/24 20:00 41 MLS/HR Vancomycin HCl 0 ml @ 0 mls/hr UD IV 06/09/24 14:45 Piperacillin Sod/ Tazobactam Sod 100 ml @ 25 mls/hr Q8H IV 06/09/24 18:30 06/10/24 07:03 25 MLS/HR Enoxaparin Sodium 100 mg Q12HR SC 06/09/24 22:00 06/09/24 21:12 100 MG Diltiazem HCl 10 mg Q8HR IV 06/10/24 14:00 objective General Appearance: alert, no distress HEENT: EOMI, PERRLA, normal external inspect of ears, no icterus, no nasal drainage Neck: no carotid bruit, no jugular venous distention (JVD), no lymphadenopathy Chest: normal thorax Respiratory: clear to auscultation, normal air movement Cardiovascular: regular rate and rhythm, no diastolic murmur, no jugular venous distention (JVD), no rub, no systolic murmur Abdominal: soft, no hepatomegaly, no mass, no splenomegaly, no tenderness Genitourinary: grossly normal external Musculoskeletal: no joint tenderness, no swelling Extremities: normal pulses, no calf tenderness, no clubbing, no cyanosis, no edema Skin: no bruising, no jaundice, no rash Neurological: alert, No focal deficit laboratory and microbiology Laboratory Tests 06/10/24 03:35 Test 06/10/24 03:35 Range/Units Serum Glucose 153 #H 74-106 mg/dL Problem List 1. Small bowel obstruction Monitor, surgical consult, GI consult, NPO 2. HLD Monitor 3. Persistent atrial fibrillation Monitor, full dose Lovenox 4. Obesity Monitor 5. Hx gastric bypass Monitor 6. Benign essential HTN Monitor, antihypertensives 7. Gallstones Monitor, surgical consult, GI consult, NPO, HIDA scan 8. Sepsis Monitor 9. Septic Shock Monitor 10. Acute renal failure Monitor, nephrology consult Assessment/Plan Subjective Patient remains intubated and on the ventilator. Objective Sedated at this time coming off vasopressors. Hemoglobin is 8. Per general surgery no transfusion at this time. Magnesium is 1.9. Plan Continue LR at 100ml an hour. I did speak with ID continue current antibiotic recommendations. Replace electrolytes as needed. Repeat CBC ordered for a.m. Ventilator management per pulmonary. Dietary Evaluation Review Comments: 1. advance diet as tolerated per MD 2. Consider EN/TPN if Pt remains NPO for 48 hours Expected Outcomes/Goals: 1. Pt will consume >75% estimated needs within 2-3 days Plan discussed with: Patient, Other [employer] Jun 10, 2024 09:41
[2024-06-10] MEDS: MAGNESIUM SULFATE 1GM/100ML 100 ML IV ONE (12:07)
--- NOTE | 2024-06-10 13:04 | DVHPN2 ---
Progress Note Date Seen: Jun 10, 2024 Medical Necessity Reason Pt with a Central, PICC or Fol: Yes The following are medically ne: Central Line, Grewal Catheter Reason for grewal catheter: Strict I&O Objective vital signs Vital Sign Date Time Temp Pulse Resp B/P (MAP) Pulse Ox O2 Delivery O2 Flow Rate FiO2 06/10/24 12:20 101/42 06/10/24 12:00 99 24 95 30 06/10/24 11:30 98.4 209.1 06/10/24 10:00 Mechanical Ventilator+ 06/08/24 18:00 2 Total Intake and Output 06/09/24 06/09/24 06/10/24 15:00 23:00 07:00 Intake Total 1547.00 ml 2134.75 ml 1671.0 ml Output Total 35 ml 825 ml 925 ml Balance 1512.00 ml 1309.75 ml 746.0 ml medications Current Medications Medications Dose Ordered Sig/Jason Route Start Time Stop Time Status Last Admin Dose Admin Ondansetron HCl 4 mg Q4HP PRN IV 05/22/24 15:00 06/06/24 02:47 4 MG Acetaminophen 650 mg Q6HP PRN PO 05/22/24 15:00 05/29/24 21:55 650 MG Citalopram Hydrobromide 20 mg DAILY PO 05/23/24 10:00 06/03/24 09:22 20 MG Hydralazine HCl 10 mg Q6HP PRN IV 05/23/24 05:00 05/24/24 01:34 10 MG Prochlorperazine Edisylate 10 mg Q6HP PRN IV 05/23/24 12:00 06/04/24 12:42 10 MG Atorvastatin Calcium 20 mg DAILY PO 05/24/24 10:00 06/03/24 09:22 20 MG Nortriptyline HCl 50 mg HS PO 05/23/24 22:00 06/05/24 21:48 50 MG Tamsulosin HCl 0.4 mg QPM PO 05/23/24 18:00 06/03/24 17:52 0.4 MG Acetaminophen/ Hydrocodone Bitart 1 tab Q4HPRN PRN PO 06/02/24 14:30 Docusate Calcium 240 mg DAILY PO 06/03/24 12:33 06/03/24 19:44 240 MG Metoprolol Tartrate 10 mg BID PO 06/03/24 22:00 UNV Sennosides 8.6 mg DAILYP PO 06/03/24 12:33 06/03/24 13:52 8.6 MG Duloxetine HCl 60 mg DAILY PO 06/03/24 12:34 06/03/24 13:52 60 MG Metoprolol Tartrate 25 mg BID PO 06/03/24 22:00 Hold 06/03/24 22:43 25 MG Norepinephrine Bitartrate 250 ml @ 3.75 mls/hr Q24H IV 06/04/24 13:30 06/10/24 06:18 15 MLS/HR Metoprolol Tartrate 5 mg Q4HP PRN IV 06/05/24 11:15 Hold Pantoprazole Sodium 40 mg DAILY IV 06/06/24 10:00 06/10/24 10:37 40 MG Amino Acids 0 ml @ 0 mls/hr PER PHARMACY IV 06/07/24 13:30 Diagnostic Test (Pha) 1 strip Q6HR 06/07/24 18:00 06/10/24 12:07 1 STRIP Insulin Human Regular FOLLOW SLIDING SCALE Q6HR SC 06/07/24 18:00 06/10/24 06:00 2 UNITS Dextrose 50 ml UD IV 06/07/24 14:15 Morphine Sulfate 2 mg Q4HPRN PRN IV 06/08/24 10:45 Midazolam HCl 50 ml @ 3 mls/hr [id number] IV 06/08/24 15:45 06/10/24 12:07 4 MLS/HR Fentanyl Citrate 250 ml @ 10 mls/hr Q24H IV 06/08/24 15:45 06/10/24 08:40 27.5 MLS/HR Vasopressin 20 units/Sodium Chloride 100 ml @ 9 mls/hr Q11H7M IV 06/09/24 07:30 06/10/24 01:45 9 MLS/HR Phenylephrine HCl 250 ml @ 30 mls/hr Q8H20M IV 06/09/24 07:30 Acetaminophen 650 mg Q6HP PRN [place] 06/09/24 08:15 Lactated Ringer's 1,000 ml @ 100 mls/hr Q10H IV 06/09/24 10:00 06/10/24 07:30 100 MLS/HR Fat Emulsion Intravenous 100 ml/Sodium Acetate 20 meq/Potassium Acetate 30 meq/ Magnesium Sulfate 12 meq/ Multivitamins 10 ml/Chromium/ Copper/Manganese/ Zinc 1 ml/Insulin Human Regular 6 units/Amino Acids/ Dextrose 989.06 ml @ 41 mls/hr Q24H8M IV 06/09/24 20:00 06/10/24 19:59 06/09/24 20:00 41 MLS/HR Vancomycin HCl 0 ml @ 0 mls/hr UD IV 06/09/24 14:45 Enoxaparin Sodium 100 mg Q12HR SC 06/09/24 22:00 06/09/24 21:12 100 MG Diltiazem HCl 10 mg Q8HR IV 06/10/24 14:00 Fat Emulsion Intravenous 100 ml/Sodium Acetate 30 meq/Potassium Phosphate 30 meq/ Magnesium Sulfate 12 meq/ Multivitamins 10 ml/Chromium/ Copper/Manganese/ Zinc 1 ml/Insulin Human Regular 6 units/Amino Acids/ Dextrose 1,085.88 ml @ 45 mls/hr Q24H8M IV 06/10/24 20:00 06/11/24 19:59 Piperacillin Sod/ Tazobactam Sod 100 ml @ 25 mls/hr Q8H IV 06/10/24 16:00 laboratory and microbiology Laboratory Tests 06/10/24 03:35 Test 06/10/24 03:35 Range/Units Serum Glucose 153 #H 74-106 mg/dL Microbiology Date/Time Source Procedure Growth Status 06/09/24 18:42 Lung Pending Resulted 06/09/24 18:42 Lung Pending Resulted 06/09/24 18:42 Lung Pending Resulted 06/09/24 18:42 Lung Pending Resulted 06/09/24 18:42 Lung - Final See Separate Report... Resulted 06/09/24 18:42 Bronchial Washings Gram Stain - Final Resulted 06/09/24 18:42 Bronchial Washings Respiratory Culture - Preliminary Resulted Problem List/Assessment/Plan Problem List/Assessment/Plan AFEBRILE VSS INTUBATED DEHYDRATED H/H LOW BUT NO ACTIVE BLEED NOTED ON VASOPRESSOR TRENDING DOWN ABD SOFT LESS DISTENDED NO BM WBC TRENDING DOWN URINE OUTPUT IMPROVED CONDITION CRITICAL CONTINUE SUPPORTIVE CARE NURSE AT BEDSIDE Plan discussed with: Other My Orders My Orders Orders - MARTHA ALVARES MD Procedure Category Date Status Time Amino Acid PHA 06/10/24 In Process Infusion... W/Fat 20:00 Communication Order ORDERS 06/10/24 Transmitted 10:43 Comprehensive LAB 06/11/24 Verified Metabolic Panel 04:00 Magnesium LAB 06/11/24 Verified 04:00 Phosphorus LAB 06/11/24 Verified 04:00 Tpn Per Pharmacy DEANNA 06/10/24 In Process 20:00 Dietary Evaluation Review Comments: 1. advance diet as tolerated per MD 2. Consider EN/TPN if Pt remains NPO for 48 hours Expected Outcomes/Goals: 1. Pt will consume >75% estimated needs within 2-3 days MARTHA ALVARES MD Jun 10, 2024 13:04
--- NOTE | 2024-06-10 13:13 | DVHPN2 ---
Progress Note - Dictate Date Seen: Jun 10, 2024 Medical Necessity Reason Pt with a Central, PICC or Fol: Yes The following are medically ne: Central Line, Grewal Catheter Reason for grewal catheter: Strict I&O Subjective Patient had emergency surgery yesterday for intra-abdominal abscess, lysis of adhesions, small bowel resection, and revision of gastric bypass anastomosis. Patient also reported bowel perforation. ID has been consulted. Patient reportedly is on vasopressors. Currently with Yuriy-Synephrine and vasopressin. Patient is on LR at 100 and IV antibiotics with Zosyn. TPN. Sputum culture: Gram Negative Rods Antibiotics status: Vancomycin HCL: Started 05/11 - Ongoing vital signs Vital Sign Date Time Temp Pulse Resp B/P (MAP) Pulse Ox O2 Delivery O2 Flow Rate FiO2 06/10/24 12:20 101/42 06/10/24 12:00 99 24 95 30 06/10/24 11:30 98.4 209.1 06/10/24 10:00 Mechanical Ventilator+ 06/08/24 18:00 2 Total Intake and Output 06/09/24 06/09/24 06/10/24 15:00 23:00 07:00 Intake Total 1547.00 ml 2134.75 ml 1671.0 ml Output Total 35 ml 825 ml 925 ml Balance 1512.00 ml 1309.75 ml 746.0 ml medications Current Medications Medications Dose Ordered Sig/Jason Route Start Time Stop Time Status Last Admin Dose Admin Ondansetron HCl 4 mg Q4HP PRN IV 05/22/24 15:00 06/06/24 02:47 4 MG Acetaminophen 650 mg Q6HP PRN PO 05/22/24 15:00 05/29/24 21:55 650 MG Citalopram Hydrobromide 20 mg DAILY PO 05/23/24 10:00 06/03/24 09:22 20 MG Hydralazine HCl 10 mg Q6HP PRN IV 05/23/24 05:00 05/24/24 01:34 10 MG Prochlorperazine Edisylate 10 mg Q6HP PRN IV 05/23/24 12:00 06/04/24 12:42 10 MG Atorvastatin Calcium 20 mg DAILY PO 05/24/24 10:00 06/03/24 09:22 20 MG Nortriptyline HCl 50 mg HS PO 05/23/24 22:00 10/5/24 21:48 50 MG Tamsulosin HCl 0.4 mg QPM PO 05/23/24 18:00 06/03/24 17:52 0.4 MG Acetaminophen/ Hydrocodone Bitart 1 tab Q4HPRN PRN PO 06/02/24 14:30 Docusate Calcium 240 mg DAILY PO 06/03/24 12:33 06/03/24 19:44 240 MG Metoprolol Tartrate 10 mg BID PO 06/03/24 22:00 UNV Sennosides 8.6 mg DAILYP PO 06/03/24 12:33 06/03/24 13:52 8.6 MG Duloxetine HCl 60 mg DAILY PO 06/03/24 12:34 06/03/24 13:52 60 MG Metoprolol Tartrate 25 mg BID PO 06/03/24 22:00 Hold 06/03/24 22:43 25 MG Norepinephrine Bitartrate 250 ml @ 3.75 mls/hr Q24H IV 06/04/24 13:30 06/10/24 06:18 15 MLS/HR Metoprolol Tartrate 5 mg Q4HP PRN IV 06/05/24 11:15 Hold Pantoprazole Sodium 40 mg DAILY IV 06/06/24 10:00 06/10/24 10:37 40 MG Amino Acids 0 ml @ 0 mls/hr PER PHARMACY IV 06/07/24 13:30 Diagnostic Test (Pha) 1 strip Q6HR 06/07/24 18:00 06/10/24 12:07 1 STRIP Insulin Human Regular FOLLOW SLIDING SCALE Q6HR SC 06/07/24 18:00 06/10/24 06:00 2 UNITS Dextrose 50 ml UD IV 06/07/24 14:15 Morphine Sulfate 2 mg Q4HPRN PRN IV 06/08/24 10:45 Midazolam HCl 50 ml @ 3 mls/hr [id number] IV 06/08/24 15:45 06/10/24 12:07 4 MLS/HR Fentanyl Citrate 250 ml @ 10 mls/hr Q24H IV 06/08/24 15:45 06/10/24 08:40 27.5 MLS/HR Vasopressin 20 units/Sodium Chloride 100 ml @ 9 mls/hr Q11H7M IV 06/09/24 07:30 06/10/24 01:45 9 MLS/HR Phenylephrine HCl 250 ml @ 30 mls/hr Q8H20M IV 06/09/24 07:30 Acetaminophen 650 mg Q6HP PRN [place] 06/09/24 08:15 Lactated Ringer's 1,000 ml @ 100 mls/hr Q10H IV 06/09/24 10:00 06/10/24 07:30 100 MLS/HR Fat Emulsion Intravenous 100 ml/Sodium Acetate 20 meq/Potassium Acetate 30 meq/ Magnesium Sulfate 12 meq/ Multivitamins 10 ml/Chromium/ Copper/Manganese/ Zinc 1 ml/Insulin Human Regular 6 units/Amino Acids/ Dextrose 989.06 ml @ 41 mls/hr Q24H8M IV 06/09/24 20:00 06/10/24 19:59 06/09/24 20:00 41 MLS/HR Vancomycin HCl 0 ml @ 0 mls/hr UD IV 06/09/24 14:45 Enoxaparin Sodium 100 mg Q12HR SC 06/09/24 22:00 06/09/24 21:12 100 MG Diltiazem HCl 10 mg Q8HR IV 06/10/24 14:00 Fat Emulsion Intravenous 100 ml/Sodium Acetate 30 meq/Potassium Phosphate 30 meq/ Magnesium Sulfate 12 meq/ Multivitamins 10 ml/Chromium/ Copper/Manganese/ Zinc 1 ml/Insulin Human Regular 6 units/Amino Acids/ Dextrose 1,085.88 ml @ 45 mls/hr Q24H8M IV 06/10/24 20:00 06/11/24 19:59 Piperacillin Sod/ Tazobactam Sod 100 ml @ 25 mls/hr Q8H IV 06/10/24 16:00 laboratory and microbiology Laboratory Tests 06/10/24 03:35 Test 06/10/24 03:35 Range/Units Serum Glucose 153 #H 74-106 mg/dL Assessment/Plan Patient is a 74-year-old male presented to the clinic with 1. Small bowel obstruction 2. HLD 3. Persistent atrial fibrillation 4. Obesity 5. Hx gastric bypass 6. Benign essential HTN 7. Gallstones 8. Sepsis 9. Septic Shock 10. Acute renal failure Dietary Evaluation Review Comments: 1. advance diet as tolerated per MD 2. Consider EN/TPN if Pt remains NPO for 48 hours Expected Outcomes/Goals: 1. Pt will consume >75% estimated needs within 2-3 days ANA GIPSON MD Jun 10, 2024 13:13
[2024-06-10] MEDS ORDERED: dilTIAZem 25 MG/5 ML VIAL IV SCH (14:00)
[2024-06-10] MEDS: dilTIAZem HCL 50 MG/10 ML VIAL IV SCH (14:58)
[2024-06-10] MEDS ORDERED: PIPERACILLIN-TAZOB 3.375GM 100 ML IV SCH (16:00)
[2024-06-10] MEDS ORDERED: VANCOMYCIN 1GM/250ML 250 ML IV ONE (17:00)
--- NOTE | 2024-06-10 17:18 | DVHPN2 ---
Progress Note Date Seen: Jun 10, 2024 Medical Necessity Reason Pt with a Central, PICC or Fol: Yes The following are medically ne: Central Line, Grewal Catheter Reason for grewal catheter: Strict I&O Subjective Patient reports: Other (Remains intubated) Review of Systems: Deferred Objective vital signs Vital Sign Date Time Temp Pulse Resp B/P (MAP) Pulse Ox O2 Delivery O2 Flow Rate FiO2 06/10/24 16:00 24 98 Mechanical Ventilator+ 30 30 06/10/24 16:00 77 06/10/24 15:40 106/41 06/10/24 13:45 98.8 209.8 06/08/24 18:00 2 Total Intake and Output 06/09/24 06/09/24 06/10/24 15:00 23:00 07:00 Intake Total 1547.00 ml 2134.75 ml 1671.0 ml Output Total 35 ml 825 ml 925 ml Balance 1512.00 ml 1309.75 ml 746.0 ml medications Current Medications Medications Dose Ordered Sig/Jason Route Start Time Stop Time Status Last Admin Dose Admin Ondansetron HCl 4 mg Q4HP PRN IV 05/22/24 15:00 06/06/24 02:47 4 MG Acetaminophen 650 mg Q6HP PRN PO 05/22/24 15:00 05/29/24 21:55 650 MG Citalopram Hydrobromide 20 mg DAILY PO 05/23/24 10:00 06/03/24 09:22 20 MG Hydralazine HCl 10 mg Q6HP PRN IV 05/23/24 05:00 05/24/24 01:34 10 MG Prochlorperazine Edisylate 10 mg Q6HP PRN IV 05/23/24 12:00 06/04/24 12:42 10 MG Atorvastatin Calcium 20 mg DAILY PO 05/24/24 10:00 06/03/24 09:22 20 MG Nortriptyline HCl 50 mg HS PO 05/23/24 22:00 06/05/24 21:48 50 MG Tamsulosin HCl 0.4 mg QPM PO 05/23/24 18:00 06/03/24 17:52 0.4 MG Acetaminophen/ Hydrocodone Bitart 1 tab Q4HPRN PRN PO 06/02/24 14:30 Docusate Calcium 240 mg DAILY PO 06/03/24 12:33 06/03/24 19:44 240 MG Metoprolol Tartrate 10 mg BID PO 06/03/24 22:00 UNV Sennosides 8.6 mg DAILYP PO 06/03/24 12:33 06/03/24 13:52 8.6 MG Duloxetine HCl 60 mg DAILY PO 06/03/24 12:34 06/03/24 13:52 60 MG Metoprolol Tartrate 25 mg BID PO 06/03/24 22:00 Hold 06/03/24 22:43 25 MG Norepinephrine Bitartrate 250 ml @ 3.75 mls/hr Q24H IV 06/04/24 13:30 06/10/24 06:18 15 MLS/HR Metoprolol Tartrate 5 mg Q4HP PRN IV 06/05/24 11:15 Hold Pantoprazole Sodium 40 mg DAILY IV 06/06/24 10:00 06/10/24 10:37 40 MG Amino Acids 0 ml @ 0 mls/hr PER PHARMACY IV 06/07/24 13:30 Diagnostic Test (Pha) 1 strip Q6HR 06/07/24 18:00 06/10/24 12:07 1 STRIP Insulin Human Regular FOLLOW SLIDING SCALE Q6HR SC 06/07/24 18:00 06/10/24 06:00 2 UNITS Dextrose 50 ml UD IV 06/07/24 14:15 Morphine Sulfate 2 mg Q4HPRN PRN IV 06/08/24 10:45 Midazolam HCl 50 ml @ 3 mls/hr [id number] IV 06/08/24 15:45 06/10/24 12:07 4 MLS/HR Fentanyl Citrate 250 ml @ 10 mls/hr Q24H IV 06/08/24 15:45 06/10/24 08:40 27.5 MLS/HR Vasopressin 20 units/Sodium Chloride 100 ml @ 9 mls/hr Q11H7M IV 06/09/24 07:30 06/10/24 15:02 9 MLS/HR Phenylephrine HCl 250 ml @ 30 mls/hr Q8H20M IV 06/09/24 07:30 Acetaminophen 650 mg Q6HP PRN [place] 06/09/24 08:15 Lactated Ringer's 1,000 ml @ 100 mls/hr Q10H IV 06/09/24 10:00 06/10/24 17:09 100 MLS/HR Fat Emulsion Intravenous 100 ml/Sodium Acetate 20 meq/Potassium Acetate 30 meq/ Magnesium Sulfate 12 meq/ Multivitamins 10 ml/Chromium/ Copper/Manganese/ Zinc 1 ml/Insulin Human Regular 6 units/Amino Acids/ Dextrose 989.06 ml @ 41 mls/hr Q24H8M IV 06/09/24 20:00 06/10/24 19:59 06/09/24 20:00 41 MLS/HR Vancomycin HCl 0 ml @ 0 mls/hr UD IV 06/09/24 14:45 Enoxaparin Sodium 100 mg Q12HR SC 06/09/24 22:00 06/09/24 21:12 100 MG Fat Emulsion Intravenous 100 ml/Sodium Acetate 30 meq/Potassium Phosphate 30 meq/ Magnesium Sulfate 12 meq/ Multivitamins 10 ml/Chromium/ Copper/Manganese/ Zinc 1 ml/Insulin Human Regular 6 units/Amino Acids/ Dextrose 1,085.88 ml @ 45 mls/hr Q24H8M IV 06/10/24 20:00 06/11/24 19:59 Piperacillin Sod/ Tazobactam Sod 100 ml @ 25 mls/hr Q8H IV 06/10/24 16:00 Diltiazem HCl 10 mg Q8H IV 06/10/24 15:00 06/10/24 14:58 2.5 MG Examination: GENERAL:Abnormal, LUNGS:Abnormal, MSK:Abnormal, SKIN:Abnormal, NEURO:Abnormal laboratory and microbiology Laboratory Tests 06/10/24 03:35 Test 06/10/24 03:35 Range/Units Serum Glucose 153 #H 74-106 mg/dL Microbiology Date/Time Source Procedure Growth Status 06/09/24 18:42 Lung Pending Resulted 06/09/24 18:42 Lung Pending Resulted 06/09/24 18:42 Lung Pending Resulted 06/09/24 18:42 Lung Pending Resulted 06/09/24 18:42 Lung - Final See Separate Report... Resulted 06/09/24 18:42 Bronchial Washings Gram Stain - Final Resulted 06/09/24 18:42 Bronchial Washings Respiratory Culture - Preliminary Resulted Problem List/Assessment/Plan Problem List/Assessment/Plan SYBIL secondary to hemodynamic mediated, FeNa < 1% (Cr 1.0 on admission 05/22/24) BPH with LUTS Septic shock Bilateral nonobstructing nephrolithiasis s/p ORIF left hip 05/27 Hypotension Chronic diastolic HF A fib Small-bowel obstruction /abscess/ perforation s/p SMALL BOWEL RESECTION WITH ANASTOMOSIS OF EFFERENT LIMB REVISION OF AFFERENT LIMB ANASTOMOSIS DISTAL TO THE EFFERENT LIMB NEW ANASTOMOSIS h/o gastric bypass Hypokalemia Hypomagnesemia vdrf post op REC: ivf continue OR report noted Stable renal function in icu Plan discussed with: Other Dietary Evaluation Review Comments: 1. advance diet as tolerated per MD 2. Consider EN/TPN if Pt remains NPO for 48 hours Expected Outcomes/Goals: 1. Pt will consume >75% estimated needs within 2-3 days PRISCA DON MD Jun 10, 2024 17:18
[2024-06-10] MEDS: VANCOMYCIN 1GM/250ML 250 ML IV ONE (18:16)
[2024-06-10] MEDS: VANCOMYCIN 1GM/200ML PREMIX 200 ML IV ONE (18:16)
[2024-06-10] MEDS: PIPERACILLIN-TAZOB 3.375GM 100 ML IV SCH (20:08)
[2024-06-10] MEDS: TPN PER PHARMACY IV NR (20:37)
--- NOTE | 2024-06-10 22:09 | DVHPN2 ---
Progress Note - Dictate Date Seen: Jun 10, 2024 Medical Necessity Reason Pt with a Central, PICC or Fol: Yes The following are medically ne: Central Line, Grewal Catheter Reason for grewal catheter: Strict I&O Subjective Patient seen and examined at bedside. Sedated, intubated on mechanical ventilator. Overnight events reviewed. vital signs Vital Sign Date Time Temp Pulse Resp B/P (MAP) Pulse Ox O2 Delivery O2 Flow Rate FiO2 06/10/24 19:59 78 24 139/51 (80) 99 30 06/10/24 18:45 98.2 208.8 06/10/24 18:00 Mechanical Ventilator+ 06/08/24 18:00 2 Total Intake and Output 06/09/24 06/09/24 06/10/24 15:00 23:00 07:00 Intake Total 1547.00 ml 2134.75 ml 1680.0 ml Output Total 35 ml 825 ml 925 ml Balance 1512.00 ml 1309.75 ml 755.0 ml medications Current Medications Medications Dose Ordered Sig/Jason Route Start Time Stop Time Status Last Admin Dose Admin Ondansetron HCl 4 mg Q4HP PRN IV 05/22/24 15:00 06/06/24 02:47 4 MG Acetaminophen 650 mg Q6HP PRN PO 05/22/24 15:00 05/29/24 21:55 650 MG Citalopram Hydrobromide 20 mg DAILY PO 05/23/24 10:00 06/03/24 09:22 20 MG Hydralazine HCl 10 mg Q6HP PRN IV 05/23/24 05:00 05/24/24 01:34 10 MG Prochlorperazine Edisylate 10 mg Q6HP PRN IV 05/23/24 12:00 06/04/24 12:42 10 MG Atorvastatin Calcium 20 mg DAILY PO 05/24/24 10:00 06/03/24 09:22 20 MG Nortriptyline HCl 50 mg HS PO 05/23/24 22:00 06/05/24 21:48 50 MG Tamsulosin HCl 0.4 mg QPM PO 05/23/24 18:00 06/03/24 17:52 0.4 MG Acetaminophen/ Hydrocodone Bitart 1 tab Q4HPRN PRN PO 06/02/24 14:30 Docusate Calcium 240 mg DAILY PO 06/03/24 12:33 06/03/24 19:44 240 MG Metoprolol Tartrate 10 mg BID PO 06/03/24 22:00 UNV Sennosides 8.6 mg DAILYP PO 06/03/24 12:33 06/03/24 13:52 8.6 MG Duloxetine HCl 60 mg DAILY PO 06/03/24 12:34 06/03/24 13:52 60 MG Metoprolol Tartrate 25 mg BID PO 06/03/24 22:00 Hold 06/03/24 22:43 25 MG Norepinephrine Bitartrate 250 ml @ 3.75 mls/hr Q24H IV 06/04/24 13:30 06/10/24 06:18 15 MLS/HR Metoprolol Tartrate 5 mg Q4HP PRN IV 06/05/24 11:15 Hold Pantoprazole Sodium 40 mg DAILY IV 06/06/24 10:00 06/10/24 10:37 40 MG Amino Acids 0 ml @ 0 mls/hr PER PHARMACY IV 06/07/24 13:30 Diagnostic Test (Pha) 1 strip Q6HR 06/07/24 18:00 06/10/24 17:50 1 STRIP Insulin Human Regular FOLLOW SLIDING SCALE Q6HR SC 06/07/24 18:00 06/10/24 06:00 2 UNITS Dextrose 50 ml UD IV 06/07/24 14:15 Morphine Sulfate 2 mg Q4HPRN PRN IV 06/08/24 10:45 Midazolam HCl 50 ml @ 3 mls/hr [id number] IV 06/08/24 15:45 06/10/24 12:07 4 MLS/HR Fentanyl Citrate 250 ml @ 10 mls/hr Q24H IV 06/08/24 15:45 06/10/24 17:59 27.5 MLS/HR Vasopressin 20 units/Sodium Chloride 100 ml @ 9 mls/hr Q11H7M IV 06/09/24 07:30 06/10/24 15:02 9 MLS/HR Phenylephrine HCl 250 ml @ 30 mls/hr Q8H20M IV 06/09/24 07:30 Acetaminophen 650 mg Q6HP PRN AL 06/09/24 08:15 Lactated Ringer's 1,000 ml @ 100 mls/hr Q10H IV 06/09/24 10:00 10/10/24 17:09 100 MLS/HR Vancomycin HCl 0 ml @ 0 mls/hr UD IV 06/09/24 14:45 Enoxaparin Sodium 100 mg Q12HR SC 06/09/24 22:00 06/09/24 21:12 100 MG Fat Emulsion Intravenous 100 ml/Sodium Acetate 30 meq/Potassium Phosphate 30 meq/ Magnesium Sulfate 12 meq/ Multivitamins 10 ml/Chromium/ Copper/Manganese/ Zinc 1 ml/Insulin Human Regular 6 units/Amino Acids/ Dextrose 1,085.88 ml @ 45 mls/hr Q24H8M IV 06/10/24 20:00 06/11/24 19:59 06/10/24 20:37 45 MLS/HR Diltiazem HCl 10 mg Q8H IV 06/10/24 15:00 06/10/24 14:58 2.5 MG Piperacillin Sod/ Tazobactam Sod 100 ml @ 25 mls/hr Q8H IV 06/10/24 20:00 06/10/24 20:08 25 MLS/HR objective Gen.: Patient lying in bed in medical ICU. Sedated, intubated on mechanical ventilator. Head: Normocephalic, atraumatic. Eyes: PERRLA. Ears: Normal external anatomy. Throat: Endotracheal tube and orogastric tube in place. Neck: Supple, trachea midline. Chest: Transmitted breath sounds bilaterally. Decreased air entry bilaterally. No wheezing. Bibasilar crackles. Cardiovascular: Positive S1, positive S2. Regular rate and rhythm. Abdomen: Positive bowel sounds in all 4 quadrants. Soft, nontender, nondistended. : Grewal in place. Normal external genitalia. Rectal: Deferred. Skin: Warm, dry. Intact. Extremities: 2+ radial pulses bilaterally. No lower extremity edema. Neuro: Sedated. laboratory and microbiology Laboratory Tests 06/10/24 03:35 Test 06/10/24 03:35 Range/Units Serum Glucose 153 #H 74-106 mg/dL Assessment/Plan Impression: Septic shock Acute hypoxic respiratory failure Acute kidney injury Small bowel obstruction Atrial fibrillation Hx of gastric bypass (Dave-en-Y) Obesity, BMI 34.2 Events: S/p intubation on mechanical ventilator. On AC mode; RR 24, VT 500, PEEP of 5, FiO2 30% ABG reviewed, compensated Metabolic acidosis Continue antibiotics Leukocytosis resolved. Sedated on Versed and Fentanyl. Pressors for hemodynamic support On Levophed 4 mcg/min and vasopressin 0.03 units/min Titrate to keep mean arterial pressure greater than 65 mmHg. Hemoglobin decreasing -monitor closely Transfuse if less than 7.0 g/dL. TPN for nutritional support. Wound care. LR at 100 ml/hr for IV fluid hydration Monitor renal function Monitor electrolytes. Supplement as necessary. Patient is s/p exploratory laparotomy with lysis of adhesions. Rest of plan as noted below. Plan: S/p central line placement. Needed for administration of pressors. S/p intubation on mechanical ventilator. On AC mode; RR 24, VT 500, PEEP of 5, FiO2 30% Sedated on Versed and Fentanyl. Antibiotics Pressors as necessary for hemodynamic support Titrate to keep mean arterial pressure greater than 65 mmHg. GI recommendations appreciated. Monitor WBC Hemoglobin - monitor Monitor renal function. Monitor electrolytes. Supplement as necessary. Monitor ins and outs. Creatinine trending down. Diet and lifestyle modifications discussed Obesity - complicates all care. DVT prophylaxis. Prognosis: Poor given patient's multiple co-morbidities. Condition: Critical Rest of plan per hospitalist and other consultants. A total of 35 minutes of critical care time was spent reviewing the patient record, examining the patient, making a diagnostic and therapeutic plan, discussing this plan with the medical personnel, following up on diagnostic studies and following the patient for clinical stability excluding any and all procedures. At least 50% of this time was spent in direct, [id number] contact. Thank you S JENNA Mcnamara, for allowing me to participate in this patient's care. Further recommendations will depend on the patient's clinical course. Please do not hesitate to contact me if you have any questions or concerns. This medical document was created using an electronic medical record system with [employer] dictation system. Although these documentations are being carefully reviewed, there may still be some phonetic and typographical changes. The errors are purely typographical, due to imperfection on the software program, and do not reflect any compromise in the patient's medical care Dietary Evaluation Review Comments: 1. advance diet as tolerated per MD 2. Consider EN/TPN if Pt remains NPO for 48 hours Expected Outcomes/Goals: 1. Pt will consume >75% estimated needs within 2-3 days Plan discussed with: Other (NIRAV Styles) PRISCILLA CORREA MD Jun 10, 2024 22:09
[2024-06-11] VITALS (114 sets, daily range): BP systolic 89–174; BP diastolic 39–72; PULSE 60–100; RESP 17–26; TEMP 97–99.1; O2SAT 95–100
[2024-06-11 04:04] LABS: Basophils # (auto) 0 10 ^3/uL (0-0.2); Basophils % (auto) 0.2 % (0.0-2.0); Lymphocytes # (auto) 0.7 10 ^3/uL (0.4-5.4); Mean Corpuscular Hgb Conc. 33.8 g/dL (32.0-36.0); Monocytes # (auto) 0.4 10 ^3/uL (0-1.3)
[2024-06-11 04:08] LABS: Eosinophils # (auto) 0.1 10 ^3/uL (0-0.8); Eosinophils % (auto) 0.8 % (0.0-7.0); Hematocrit 20.1 % (41.0-53.0); Lymphocytes % (auto) 12.1 % (10.0-50.0); Mean Corpuscular Volume 88.7 fL (80.0-100.0); Monocytes % (auto) 5.7 % (0.0-12.0); Neutrophils % (auto) 81.2 % (37.0-80.0); Nucleated Red Blood Cells % 0.4 %; Platelet Count (auto) 209 10^3/uL (140-450); Red Blood Cells 2.27 10^6/uL (4.5-5.90); White Blood Cell 6.1 10^3/uL (4.4-10.8)
[2024-06-11 04:16] LABS: Alanine Aminotransferase 13 U/L (7-40); Alkaline Phosphatase 136 U/L (46-116); Anion Gap 5 (5-15); Aspartate Aminotransferase 15 U/L (13-40); BUN/Creatinine Ratio 33.3 (10.0-20.0); Bilirubin, Total 0.5 mg/dL (0.2-1.0); Blood Urea Nitrogen 34 mg/dL (9-23); Calcium 7.7 mg/dL (8.7-10.4); Carbon Dioxide 21 mmol/L (20-31); Chloride 112 mmol/L (98-107); Glucose 163 mg/dL (74-106); Magnesium 1.7 mg/dL (1.6-2.6); Phosphorus 1.7 mg/dL (2.4-5.1); Potassium 3.5 mmol/L (3.5-5.1); Sodium 138 mmol/L (136-145); Total Protein 3.5 g/dL (5.7-8.2)
[2024-06-11 04:33] LABS: Hemoglobin 6.8 g/dL (13.5-17.5)
--- NOTE | 2024-06-11 05:27 | DVH ---
CHEST RADIOGRAPH Indication:ON VENT Technique: Single frontal view of the chest was obtained Comparison: XY CHEST XRAY 1 VIEW on DOS: 06/08/24 FINDINGS: Lines and Tubes: There is an endotracheal tube terminates 5.7 cm above the gary. Right central justin ous catheter terminates in superior vena cava. The enteric tube terminates in the stomach. Lungs: Bibasilar airspace disease. Pleura: No effusion. No pneumothorax. Cardiomediastinal contours: Unremarkable Bones: No acute osseous abnormality. IMPRESSION: 1. Stable appearance of the support lines and tubes. 2. Bibasilar airspace disease similar to prior study.
[2024-06-11 07:19] LABS: Base Excess -2.8 mmol/L (-2.0-3.0)
--- NOTE | 2024-06-11 07:37 | DVHPN2 ---
Progress Note - Dictate Date Seen: Jun 11, 2024 Medical Necessity Reason Pt with a Central, PICC or Fol: Yes The following are medically ne: Central Line, Grewal Catheter Reason for grewal catheter: Strict I&O vital signs Vital Sign Date Time Temp Pulse Resp B/P (MAP) Pulse Ox O2 Delivery O2 Flow Rate FiO2 06/11/24 06:30 99.0 84 24 100/50 (67) 100 210.2 119/39 (65) 06/11/24 06:17 30 06/11/24 06:00 Mechanical Ventilator+ Total Intake and Output 06/10/24 06/10/24 06/11/24 15:00 23:00 07:00 Intake Total 1776.75 ml 1519.25 ml 1531.25 ml Output Total 850 ml 900 ml Balance 1776.75 ml 669.25 ml 631.25 ml medications Current Medications Medications Dose Ordered Sig/Jason Route Start Time Stop Time Status Last Admin Dose Admin Ondansetron HCl 4 mg Q4HP PRN IV 05/22/24 15:00 06/06/24 02:47 4 MG Acetaminophen 650 mg Q6HP PRN PO 05/22/24 15:00 05/29/24 21:55 650 MG Citalopram Hydrobromide 20 mg DAILY PO 05/23/24 10:00 06/03/24 09:22 20 MG Hydralazine HCl 10 mg Q6HP PRN IV 05/23/24 05:00 05/24/24 01:34 10 MG Prochlorperazine Edisylate 10 mg Q6HP PRN IV 05/23/24 12:00 06/04/24 12:42 10 MG Atorvastatin Calcium 20 mg DAILY PO 05/24/24 10:00 06/03/24 09:22 20 MG Nortriptyline HCl 50 mg HS PO 05/23/24 22:00 06/05/24 21:48 50 MG Tamsulosin HCl 0.4 mg QPM PO 05/23/24 18:00 06/03/24 17:52 0.4 MG Acetaminophen/ Hydrocodone Bitart 1 tab Q4HPRN PRN PO 06/02/24 14:30 Docusate Calcium 240 mg DAILY PO 06/03/24 12:33 06/03/24 19:44 240 MG Metoprolol Tartrate 10 mg BID PO 06/03/24 22:00 UNV Sennosides 8.6 mg DAILYP PO 06/03/24 12:33 06/03/24 13:52 8.6 MG Duloxetine HCl 60 mg DAILY PO 06/03/24 12:34 06/03/24 13:52 60 MG Metoprolol Tartrate 25 mg BID PO 06/03/24 22:00 Hold 06/03/24 22:43 25 MG Norepinephrine Bitartrate 250 ml @ 3.75 mls/hr Q24H IV 06/04/24 13:30 06/10/24 06:18 15 MLS/HR Metoprolol Tartrate 5 mg Q4HP PRN IV 06/05/24 11:15 Hold Pantoprazole Sodium 40 mg DAILY IV 06/06/24 10:00 06/10/24 10:37 40 MG Amino Acids 0 ml @ 0 mls/hr PER PHARMACY IV 06/07/24 13:30 Diagnostic Test (Pha) 1 strip Q6HR 06/07/24 18:00 06/11/24 05:39 1 STRIP Insulin Human Regular FOLLOW SLIDING SCALE Q6HR SC 06/07/24 18:00 06/11/24 00:08 2 UNITS Dextrose 50 ml UD IV 06/07/24 14:15 Morphine Sulfate 2 mg Q4HPRN PRN IV 06/08/24 10:45 Midazolam HCl 50 ml @ 3 mls/hr [id number] IV 06/08/24 15:45 06/10/24 12:07 4 MLS/HR Fentanyl Citrate 250 ml @ 10 mls/hr Q24H IV 06/08/24 15:45 06/11/24 04:39 20 MLS/HR Vasopressin 20 units/Sodium Chloride 100 ml @ 9 mls/hr Q11H7M IV 06/09/24 07:30 06/11/24 00:26 9 MLS/HR Phenylephrine HCl 250 ml @ 30 mls/hr Q8H20M IV 06/09/24 07:30 Acetaminophen 650 mg Q6HP PRN AK 06/09/24 08:15 Lactated Ringer's 1,000 ml @ 100 mls/hr Q10H IV 06/09/24 10:00 06/11/24 02:58 100 MLS/HR Vancomycin HCl 0 ml @ 0 mls/hr UD IV 06/09/24 14:45 Enoxaparin Sodium 100 mg Q12HR SC 06/09/24 22:00 06/09/24 21:12 100 MG Fat Emulsion Intravenous 100 ml/Sodium Acetate 30 meq/Potassium Phosphate 30 meq/ Magnesium Sulfate 12 meq/ Multivitamins 10 ml/Chromium/ Copper/Manganese/ Zinc 1 ml/Insulin Human Regular 6 units/Amino Acids/ Dextrose 1,085.88 ml @ 45 mls/hr Q24H8M IV 06/10/24 20:00 06/11/24 19:59 06/10/24 20:37 45 MLS/HR Diltiazem HCl 10 mg Q8H IV 06/10/24 15:00 06/10/24 14:58 2.5 MG Piperacillin Sod/ Tazobactam Sod 100 ml @ 25 mls/hr Q8H IV 06/10/24 20:00 06/11/24 03:55 25 MLS/HR laboratory and microbiology Laboratory Tests 06/11/24 03:49 Test 06/11/24 03:49 Range/Units Serum Glucose 163 H 74-106 mg/dL Assessment/Plan s/p Laparotomy (found to have contained bowel perforation, abscess) transferred to ICU On pressure support. On IV BB/CCB Had mechanical fall and found to have hip fracture. S/p ORIF Patient is a 74-year-old gentleman who presented on May 22, 2024 for epigastric pain. It seems that he ate sandwich in this was followed by repeated abdominal pain and vomiting. He has been admitted with small-bowel obstruction. He also was found to have gallstones and gastric outlet obstruction. He has been seen by surgery and GI. He has been having NG tube. Patient does have history of paroxysmal AFib and is on Eliquis as outpatient. On 05/24 2024, the patient was found to have tachyarrhythmia and cardiology was involved for its evaluation and management. Telemetry revealed tachyarrhythmia in the rate of 150s. Tele was in favor of SVT. Patient was attached to the monitor and 6 mg of adenosine was given which resulted in breaking of the tachyarrhythmia inpatient been back to sinus rhythm. As per patient, he usually follows with Cardiology in [facility]. As per patient, he did have angiogram (cardiac catheterization some years ago and was told that it was normal findings). Lying flat in bed and not in acute distress. No JVD. Mucosa is pink and wet. No carotid bruit. No goiter. Lungs are clear to auscultation. At the time of evaluation the patient started to be in tachyarrhythmia and in palpitation. Later, heart rate decreased. No thrill/gallop. Abdomen is soft. Extremities do not reveal edema Past medical history includes atrial fibrillation (on Eliquis as outpatient), DJD, heart failure (diastolic), COPD, hypertension, hyperlipidemia, reported diabetes mellitus, obesity, old history of tonsillectomy and gastric bypass surgery. He is known to have kidney stones. Echocardiogram of January 2020 revealed ejection fraction of 60% and biatrial enlargement Troponin (high sensitive): 19 - 11 TSH: 3.28 CT of the abdomen and pelvis revealed: IMPRESSION: 1. Cholelithiasis with the gallbladder distended. 2. Postop changes to the stomach with a fluid-filled distended stomach and dilated fluid-filled small bowel findings suggest small bowel obstruction. 3. Multiple bilateral nonobstructing renal calculi. 4. Prosthesis in the right hip. Chest x-ray revealed: Frontal chest radiograph demonstrates no acute osseous or superficial soft tissue abnormalities. Enteric tube visualized overlying the plane of the stomach. The trachea is midline. The cardiac silhouette and mediastinum are within normal limits. No pneumothorax, pleural effusions, or consolidations. Partially visualized gaseous distended loops of bowel. Repeat chest xry revealed: IMPRESSION: 1. Stable appearance of the support lines and tubes. 2. Bibasilar airspace disease similar to prior study. HIDA scan reported: IMPRESSION: 1. Findings may reflect chronic cholecystitis, cannot exclude acute cholecystitis due to lack of 30-60 minute images. KUB revealed: IMPRESSION: Findings concerning for small bowel obstruction versus ileus. Repeat KUB revealed: FINDINGS/IMPRESSION: Dilated loops of small bowel with gas and stool visualized in the colon. Findings appear improved compared to prior exam. Repeat KUB revealed: IMPRESSION: 1. There are air-filled dilated small bowel loops. Air and stool is seen within the colon. The findings appear mildly improved comparison to the prior study. The findings fairly stable and May relate to an ileus.. Clinical correlation and continued follow-up is recommended Repeat KUB revealed: Impression: 1. Nonobstructive bowel gas pattern. Gallbladder ultrasound reported: FINDINGS: Examination is limited. The gallbladder appears distended. The gallbladder wall measures 2 mm in thickness, within normal limits. Possible sludge in the gallbladder. Negative reported sonographic valladares's sign. The common bile duct measures 6 mm in diameter, within normal limits. The liver measures at the upper limits of normal in size, at 16.4 cm in craniocaudal dimension. Heterogeneous echotexture of the liver. The pancreas is obscured by bowel gas. The right kidney measures 9.6 cm. There is no hydronephrosis. Limited evaluation of the right kidney. Echogenic focus, possible renal calculus at the midpole measuring 1.4 cm. The patient does have renal calculi on recent CT exam. IMPRESSION: 1. Limited examination as described above. Possible gallbladder sludge and distended gallbladder. No sonographic evidence of acute cholecystitis. 2. Additional nonacute findings as described above. HIDA scan revealed: Impression: 1. Unremarkable hepatobiliary study without evidence of acute cholecystitis. Left Hip Xry: FINDINGS/IMPRESSION: There is a displaced and impacted left intertrochanteric fracture. Patient is status post right hip arthroplasty. EKG revealed SVT Tele revealed SVT which later transitioned into sinus rhythm Echocardiogram revealed: Technically limited study secondary to poor acoustic windows. Left ventricle: Mild concentric left ventricular hypertrophy was seen. LVEF was 55-60%. Right ventricle was normal size with normal systolic function. Both atria were mildly dilated. Aortic valve was not well visualized. Aortic sclerosis with no stenosis was observed. [id number]-[id number] aortic insufficiency was observed. Mild mitral/tricuspid regurgitation was seen. Tricuspid valve was not well visualized. Right ventricular systolic pressure was assessed around 25 mm Hg. There was no pericardial effusion. Ascending aorta was 4.5 cm. Patient is a 74-year-old gentleman who presented with abdominal pain and is being managed for small bowel obstruction. He does have history of paroxysmal AFib. Has not been taking his medications regularly and this was followed with tachyarrhythmia. Tachyarrhythmia was in favor of SVT. SVT responded to adenosine Small-bowel obstruction Obesity History of gastric bypass Paroxysmal AFib SVT Status post adenosine management Diabetes mellitus Obesity, morbid Gallstone Renal stone s/p laparotomy bowel perforation Cardiac suggestion for management: For now, manage in ICU Follow-up electrolytes and kidney function tests and correct abnormalities Keep potassium above 4 and magnesium above 2 Continue Cardizem Fluid resuscitation Surgery and GI follow up Long-term continuation of anticoagulation is suggested (for now patient on Lovenox). .. Further evaluation and management depends on the above and clinical course A total of 75 minutes was spent reviewing the patient record, examining the patient, making a diagnostic and therapeutic plan, discussing this plan with medical personnel, following up on diagnostic studies and following the patient for clinical stability excluding any and all procedures. At least 50% of this time was spent in direct, [id number] contact. Thank you for allowing me to participate in this patient's care. Further recommendations will depend on patient's clinical course. Please do not hesitate to contact me if you have any questions or concerns. This medical document was created using electronic medical record system with [employer] computerized dictation system. Although this document has been carefully reviewed, there may still be some phonetic and typographical errors. These areas are purely typographical due to the imperfection of the software programs, and do not reflect any compromise in the patient's medical care. Dietary Evaluation Review Comments: 1. advance diet as tolerated per MD 2. Consider EN/TPN if Pt remains NPO for 48 hours Expected Outcomes/Goals: 1. Pt will consume >75% estimated needs within 2-3 days Plan discussed with: Other (nurse) BROOKS PRITCHARD MD Jun 11, 2024 07:37
[2024-06-11] MEDS: POTASSIUM PHOSPHATE 22 MEQ in SODIUM CHL 0.9% 100 ML IV ONE (10:35)
--- NOTE | 2024-06-11 12:56 | DVHPN2 ---
Progress Note Date Seen: Jun 11, 2024 Medical Necessity Reason Pt with a Central, PICC or Fol: Yes The following are medically ne: Central Line, Grewal Catheter Reason for grewal catheter: Strict I&O Objective vital signs Vital Sign Date Time Temp Pulse Resp B/P (MAP) Pulse Ox O2 Delivery O2 Flow Rate FiO2 06/11/24 11:28 98.2 90 24 142/48 98.2 06/11/24 10:22 99 30 06/11/24 08:00 Mechanical Ventilator+ Total Intake and Output 06/10/24 06/10/24 06/11/24 14:59 22:59 06:59 Intake Total 1791.25 ml 1503.75 ml 1734.75 ml Output Total 850 ml 900 ml Balance 1791.25 ml 653.75 ml 834.75 ml medications Current Medications Medications Dose Ordered Sig/Jason Route Start Time Stop Time Status Last Admin Dose Admin Ondansetron HCl 4 mg Q4HP PRN IV 05/22/24 15:00 06/06/24 02:47 4 MG Acetaminophen 650 mg Q6HP PRN PO 05/22/24 15:00 05/29/24 21:55 650 MG Citalopram Hydrobromide 20 mg DAILY PO 05/23/24 10:00 06/11/24 10:10 20 MG Hydralazine HCl 10 mg Q6HP PRN IV 05/23/24 05:00 05/24/24 01:34 10 MG Prochlorperazine Edisylate 10 mg Q6HP PRN IV 05/23/24 12:00 06/04/24 12:42 10 MG Atorvastatin Calcium 20 mg DAILY PO 05/24/24 10:00 06/11/24 10:10 20 MG Nortriptyline HCl 50 mg HS PO 05/23/24 22:00 06/05/24 21:48 50 MG Tamsulosin HCl 0.4 mg QPM PO 05/23/24 18:00 06/03/24 17:52 0.4 MG Acetaminophen/ Hydrocodone Bitart 1 tab Q4HPRN PRN PO 06/02/24 14:30 Docusate Calcium 240 mg DAILY PO 06/03/24 12:33 06/03/24 19:44 240 MG Metoprolol Tartrate 10 mg BID PO 06/03/24 22:00 UNV Sennosides 8.6 mg DAILYP PO 06/03/24 12:33 06/11/24 10:10 8.6 MG Duloxetine HCl 60 mg DAILY PO 06/03/24 12:34 06/11/24 10:10 60 MG Metoprolol Tartrate 25 mg BID PO 06/03/24 22:00 Hold 06/03/24 22:43 25 MG Norepinephrine Bitartrate 250 ml @ 3.75 mls/hr Q24H IV 06/04/24 13:30 06/10/24 06:18 15 MLS/HR Metoprolol Tartrate 5 mg Q4HP PRN IV 06/05/24 11:15 Hold Pantoprazole Sodium 40 mg DAILY IV 06/06/24 10:00 06/11/24 10:11 40 MG Amino Acids 0 ml @ 0 mls/hr PER PHARMACY IV 06/07/24 13:30 Diagnostic Test (Pha) 1 strip Q6HR 06/07/24 18:00 06/11/24 05:39 1 STRIP Insulin Human Regular FOLLOW SLIDING SCALE Q6HR SC 06/07/24 18:00 06/11/24 00:08 2 UNITS Dextrose 50 ml UD IV 06/07/24 14:15 Morphine Sulfate 2 mg Q4HPRN PRN IV 06/08/24 10:45 Midazolam HCl 50 ml @ 3 mls/hr [id number] IV 06/08/24 15:45 06/10/24 12:07 4 MLS/HR Fentanyl Citrate 250 ml @ 10 mls/hr Q24H IV 06/08/24 15:45 06/11/24 04:39 20 MLS/HR Vasopressin 20 units/Sodium Chloride 100 ml @ 9 mls/hr Q11H7M IV 06/09/24 07:30 06/11/24 00:26 9 MLS/HR Phenylephrine HCl 250 ml @ 30 mls/hr Q8H20M IV 06/09/24 07:30 Acetaminophen 650 mg Q6HP PRN SD 06/09/24 08:15 Lactated Ringer's 1,000 ml @ 100 mls/hr Q10H IV 06/09/24 10:00 06/11/24 02:58 100 MLS/HR Vancomycin HCl 0 ml @ 0 mls/hr UD IV 06/09/24 14:45 Enoxaparin Sodium 100 mg Q12HR SC 06/09/24 22:00 06/11/24 10:09 100 MG Fat Emulsion Intravenous 100 ml/Sodium Acetate 30 meq/Potassium Phosphate 30 meq/ Magnesium Sulfate 12 meq/ Multivitamins 10 ml/Chromium/ Copper/Manganese/ Zinc 1 ml/Insulin Human Regular 6 units/Amino Acids/ Dextrose 1,085.88 ml @ 45 mls/hr Q24H8M IV 06/10/24 20:00 06/11/24 19:59 06/10/24 20:37 45 MLS/HR Diltiazem HCl 10 mg Q8H IV 06/10/24 15:00 06/10/24 14:58 2.5 MG Piperacillin Sod/ Tazobactam Sod 100 ml @ 25 mls/hr Q8H IV 06/10/24 20:00 06/11/24 03:55 25 MLS/HR Fat Emulsion Intravenous 100 ml/Sodium Acetate 40 meq/Potassium Phosphate 22 meq/ Magnesium Sulfate 16 meq/ Multivitamins 10 ml/Chromium/ Copper/Manganese/ Zinc 1 ml/Insulin Human Regular 4 units/Amino Acids/ Dextrose 1,140.04 ml @ 48 mls/hr [id number] IV 06/11/24 20:00 06/12/24 19:59 laboratory and microbiology Laboratory Tests 06/11/24 03:49 Test 06/11/24 03:49 Range/Units Serum Glucose 163 H 74-106 mg/dL Microbiology Date/Time Source Procedure Growth Status 06/09/24 18:42 Lung Pending Resulted 06/09/24 18:42 Lung Pending Resulted 06/09/24 18:42 Lung Pending Resulted 06/09/24 18:42 Lung Pending Resulted 06/09/24 18:42 Lung - Final See Separate Report... Resulted 06/09/24 18:42 Bronchial Washings Gram Stain - Final Resulted 06/09/24 18:42 Bronchial Washings Respiratory Culture - Preliminary Resulted Problem List/Assessment/Plan Problem List/Assessment/Plan AFEBRILE VSS INTUBATED DEHYDRATED H/H LOW BUT NO ACTIVE BLEED NOTED ON VASOPRESSOR TRENDING DOWN ABD SOFT LESS DISTENDED NO BM WBC TRENDING DOWN URINE OUTPUT IMPROVED CONDITION CRITICAL CONTINUE SUPPORTIVE CARE TRANSFUSION ONE PRBC NURSE AT BEDSIDE Plan discussed with: Other My Orders My Orders Orders - MARTHA ALVARES MD Procedure Category Date Status Time Potassium Phosphate PHA 06/11/24 In Process 10:00 Comprehensive LAB 06/12/24 Verified Metabolic Panel 04:00 Magnesium LAB 06/12/24 Verified 04:00 Phosphorus LAB 06/12/24 Verified 04:00 Amino Acid PHA 06/11/24 In Process Infusion... W/Fat 20:00 Dietary Evaluation Review Comments: 1. advance diet as tolerated per MD 2. Consider EN/TPN if Pt remains NPO for 48 hours Expected Outcomes/Goals: 1. Pt will consume >75% estimated needs within 2-3 days MARTHA ALVARES MD Jun 11, 2024 12:56
[2024-06-11] MEDS ORDERED: METOPROLOL TARTRATE 1MG/1ML-5ML VIAL IV SCH (13:45)
--- NOTE | 2024-06-11 14:56 | DVHPN2 ---
Progress Note - Dictate Date Seen: Jun 11, 2024 Medical Necessity Reason Pt with a Central, PICC or Fol: Yes The following are medically ne: Central Line, Grewal Catheter Reason for grewal catheter: Strict I&O vital signs Vital Sign Date Time Temp Pulse Resp B/P (MAP) Pulse Ox O2 Delivery O2 Flow Rate FiO2 06/11/24 14:10 168/61 06/11/24 14:03 98 24 99 30 06/11/24 13:47 70.0 06/11/24 11:28 98.2 98.2 06/11/24 08:00 Mechanical Ventilator+ Total Intake and Output 06/10/24 06/10/24 06/11/24 15:00 23:00 07:00 Intake Total 1776.75 ml 1519.25 ml 1531.25 ml Output Total 850 ml 900 ml Balance 1776.75 ml 669.25 ml 631.25 ml medications Current Medications Medications Dose Ordered Sig/Jason Route Start Time Stop Time Status Last Admin Dose Admin Ondansetron HCl 4 mg Q4HP PRN IV 05/22/24 15:00 06/06/24 02:47 4 MG Acetaminophen 650 mg Q6HP PRN PO 05/22/24 15:00 05/29/24 21:55 650 MG Citalopram Hydrobromide 20 mg DAILY PO 05/23/24 10:00 06/11/24 10:10 20 MG Hydralazine HCl 10 mg Q6HP PRN IV 05/23/24 05:00 05/24/24 01:34 10 MG Prochlorperazine Edisylate 10 mg Q6HP PRN IV 05/23/24 12:00 06/04/24 12:42 10 MG Atorvastatin Calcium 20 mg DAILY PO 05/24/24 10:00 06/11/24 10:10 20 MG Nortriptyline HCl 50 mg HS PO 05/23/24 22:00 06/05/24 21:48 50 MG Tamsulosin HCl 0.4 mg QPM PO 05/23/24 18:00 06/03/24 17:52 0.4 MG Acetaminophen/ Hydrocodone Bitart 1 tab Q4HPRN PRN PO 06/02/24 14:30 Docusate Calcium 240 mg DAILY PO 06/03/24 12:33 06/03/24 19:44 240 MG Metoprolol Tartrate 10 mg BID PO 06/03/24 22:00 UNV Sennosides 8.6 mg DAILYP PO 06/03/24 12:33 06/11/24 10:10 8.6 MG Duloxetine HCl 60 mg DAILY PO 06/03/24 12:34 06/11/24 10:10 60 MG Metoprolol Tartrate 25 mg BID PO 06/03/24 22:00 Hold 06/03/24 22:43 25 MG Norepinephrine Bitartrate 250 ml @ 3.75 mls/hr Q24H IV 06/04/24 13:30 06/10/24 06:18 15 MLS/HR Metoprolol Tartrate 5 mg Q4HP PRN IV 06/05/24 11:15 Hold Pantoprazole Sodium 40 mg DAILY IV 06/06/24 10:00 06/11/24 10:11 40 MG Amino Acids 0 ml @ 0 mls/hr PER PHARMACY IV 06/07/24 13:30 Diagnostic Test (Pha) 1 strip Q6HR 06/07/24 18:00 06/11/24 13:24 1 STRIP Insulin Human Regular FOLLOW SLIDING SCALE Q6HR SC 06/07/24 18:00 06/11/24 00:08 2 UNITS Dextrose 50 ml UD IV 06/07/24 14:15 Morphine Sulfate 2 mg Q4HPRN PRN IV 06/08/24 10:45 Midazolam HCl 50 ml @ 3 mls/hr [id number] IV 06/08/24 15:45 06/10/24 12:07 4 MLS/HR Fentanyl Citrate 250 ml @ 10 mls/hr Q24H IV 06/08/24 15:45 06/11/24 04:39 20 MLS/HR Vasopressin 20 units/Sodium Chloride 100 ml @ 9 mls/hr Q11H7M IV 06/09/24 07:30 06/11/24 00:26 9 MLS/HR Phenylephrine HCl 250 ml @ 30 mls/hr Q8H20M IV 06/09/24 07:30 Acetaminophen 650 mg Q6HP PRN MO 06/09/24 08:15 Lactated Ringer's 1,000 ml @ 100 mls/hr Q10H IV 06/09/24 10:00 06/11/24 02:58 100 MLS/HR Vancomycin HCl 0 ml @ 0 mls/hr UD IV 06/09/24 14:45 Enoxaparin Sodium 100 mg Q12HR SC 06/09/24 22:00 06/11/24 10:09 100 MG Fat Emulsion Intravenous 100 ml/Sodium Acetate 30 meq/Potassium Phosphate 30 meq/ Magnesium Sulfate 12 meq/ Multivitamins 10 ml/Chromium/ Copper/Manganese/ Zinc 1 ml/Insulin Human Regular 6 units/Amino Acids/ Dextrose 1,085.88 ml @ 45 mls/hr Q24H8M IV 06/10/24 20:00 06/11/24 19:59 06/10/24 20:37 45 MLS/HR Piperacillin Sod/ Tazobactam Sod 100 ml @ 25 mls/hr Q8H IV 06/10/24 20:00 06/11/24 13:24 25 MLS/HR Fat Emulsion Intravenous 100 ml/Sodium Acetate 40 meq/Potassium Phosphate 22 meq/ Magnesium Sulfate 16 meq/ Multivitamins 10 ml/Chromium/ Copper/Manganese/ Zinc 1 ml/Insulin Human Regular 4 units/Amino Acids/ Dextrose 1,140.04 ml @ 48 mls/hr [id number] IV 06/11/24 20:00 06/12/24 19:59 Metoprolol Tartrate 5 mg BID IV 06/11/24 13:45 UNV Diltiazem HCl 10 mg Q8H IV 06/11/24 14:45 laboratory and microbiology Laboratory Tests 06/11/24 03:49 Test 06/11/24 03:49 Range/Units Serum Glucose 163 H 74-106 mg/dL Assessment/Plan SYBIL secondary to hemodynamic mediated, FeNa < 1% (Cr 1.0 on admission 05/22/24) BPH with LUTS Septic shock Bilateral nonobstructing nephrolithiasis s/p ORIF left hip 05/27 Hypotension Chronic diastolic HF A fib Small-bowel obstruction /abscess/ perforation s/p SMALL BOWEL RESECTION WITH ANASTOMOSIS OF EFFERENT LIMB REVISION OF AFFERENT LIMB ANASTOMOSIS DISTAL TO THE EFFERENT LIMB NEW ANASTOMOSIS h/o gastric bypass Hypokalemia Hypomagnesemia vdrf post op anemia ivf continue Stable renal function PRBC given today Dietary Evaluation Review Comments: 1. advance diet as tolerated per MD 2. Consider EN/TPN if Pt remains NPO for 48 hours Expected Outcomes/Goals: 1. Pt will consume >75% estimated needs within 2-3 days Plan discussed with: Other OLADELE,LUIS M MD Jun 11, 2024 14:56
[2024-06-11] MEDS ORDERED: dilTIAZem HCL 50 MG/10 ML VIAL IV SCH (15:00)
[2024-06-11] MEDS: dilTIAZem HCL 50 MG/10 ML VIAL IV SCH (15:43)
[2024-06-11] MEDS: VANCOMYCIN 750mg/150ml 150 ML IV SCH (16:45)
[2024-06-11] MEDS: PANTOPRAZOLE 40mg/50ML NS AE 50 ML IV SCH (18:04)
--- NOTE | 2024-06-11 18:46 | DVHPN2 ---
Progress Note - Dictate Date Seen: Jun 11, 2024 Medical Necessity Reason Pt with a Central, PICC or Fol: Yes The following are medically ne: Central Line, Grewal Catheter Reason for grewal catheter: Strict I&O Subjective Patient seen and examined at bedside. Sedated, intubated on mechanical ventilator. Overnight events reviewed. vital signs Vital Sign Date Time Temp Pulse Resp B/P (MAP) Pulse Ox O2 Delivery O2 Flow Rate FiO2 06/11/24 18:36 100 25 155/55 (88) 97 30 06/11/24 18:30 98.1 208.6 06/11/24 18:00 Mechanical Ventilator+ 06/11/24 13:47 70.0 Total Intake and Output 06/10/24 06/10/24 06/11/24 15:00 23:00 07:00 Intake Total 1776.75 ml 1519.25 ml 1531.25 ml Output Total 850 ml 900 ml Balance 1776.75 ml 669.25 ml 631.25 ml medications Current Medications Medications Dose Ordered Sig/Jason Route Start Time Stop Time Status Last Admin Dose Admin Ondansetron HCl 4 mg Q4HP PRN IV 05/22/24 15:00 06/06/24 02:47 4 MG Acetaminophen 650 mg Q6HP PRN PO 05/22/24 15:00 05/29/24 21:55 650 MG Citalopram Hydrobromide 20 mg DAILY PO 05/23/24 10:00 06/11/24 10:10 20 MG Hydralazine HCl 10 mg Q6HP PRN IV 05/23/24 05:00 05/24/24 01:34 10 MG Prochlorperazine Edisylate 10 mg Q6HP PRN IV 05/23/24 12:00 06/04/24 12:42 10 MG Atorvastatin Calcium 20 mg DAILY PO 05/24/24 10:00 06/11/24 10:10 20 MG Nortriptyline HCl 50 mg HS PO 05/23/24 22:00 06/05/24 21:48 50 MG Tamsulosin HCl 0.4 mg QPM PO 05/23/24 18:00 06/11/24 18:05 0.4 MG Docusate Calcium 240 mg DAILY PO 06/03/24 12:33 06/03/24 19:44 240 MG Metoprolol Tartrate 10 mg BID PO 06/03/24 22:00 UNV Sennosides 8.6 mg DAILYP PO 06/03/24 12:33 06/11/24 10:10 8.6 MG Duloxetine HCl 60 mg DAILY PO 06/03/24 12:34 06/11/24 10:10 60 MG Metoprolol Tartrate 25 mg BID PO 06/03/24 22:00 Hold 06/03/24 22:43 25 MG Norepinephrine Bitartrate 250 ml @ 3.75 mls/hr Q24H IV 06/04/24 13:30 06/10/24 06:18 15 MLS/HR Metoprolol Tartrate 5 mg Q4HP PRN IV 06/05/24 11:15 Hold Pantoprazole Sodium 40 mg DAILY IV 06/06/24 10:00 06/11/24 10:11 40 MG Amino Acids 0 ml @ 0 mls/hr PER PHARMACY IV 06/07/24 13:30 Diagnostic Test (Pha) 1 strip Q6HR 06/07/24 18:00 06/11/24 17:42 1 STRIP Insulin Human Regular FOLLOW SLIDING SCALE Q6HR SC 06/07/24 18:00 06/11/24 17:43 2 UNITS Dextrose 50 ml UD IV 06/07/24 14:15 Morphine Sulfate 2 mg Q4HPRN PRN IV 06/08/24 10:45 Midazolam HCl 50 ml @ 3 mls/hr [id number] IV 06/08/24 15:45 06/10/24 12:07 4 MLS/HR Fentanyl Citrate 250 ml @ 10 mls/hr Q24H IV 06/08/24 15:45 06/11/24 04:39 20 MLS/HR Vasopressin 20 units/Sodium Chloride 100 ml @ 9 mls/hr Q11H7M IV 06/09/24 07:30 06/11/24 00:26 9 MLS/HR Phenylephrine HCl 250 ml @ 30 mls/hr Q8H20M IV 06/09/24 07:30 Acetaminophen 650 mg Q6HP PRN SC 06/09/24 08:15 Lactated Ringer's 1,000 ml @ 100 mls/hr Q10H IV 06/09/24 10:00 06/11/24 02:58 100 MLS/HR Vancomycin HCl 0 ml @ 0 mls/hr UD IV 06/09/24 14:45 Enoxaparin Sodium 100 mg Q12HR SC 06/09/24 22:00 06/11/24 10:09 100 MG Fat Emulsion Intravenous 100 ml/Sodium Acetate 30 meq/Potassium Phosphate 30 meq/ Magnesium Sulfate 12 meq/ Multivitamins 10 ml/Chromium/ Copper/Manganese/ Zinc 1 ml/Insulin Human Regular 6 units/Amino Acids/ Dextrose 1,085.88 ml @ 45 mls/hr Q24H8M IV 06/10/24 20:00 06/11/24 19:59 06/10/24 20:37 45 MLS/HR Piperacillin Sod/ Tazobactam Sod 100 ml @ 25 mls/hr Q8H IV 06/10/24 20:00 06/11/24 13:24 25 MLS/HR Fat Emulsion Intravenous 100 ml/Sodium Acetate 40 meq/Potassium Phosphate 22 meq/ Magnesium Sulfate 16 meq/ Multivitamins 10 ml/Chromium/ Copper/Manganese/ Zinc 1 ml/Insulin Human Regular 4 units/Amino Acids/ Dextrose 1,140.04 ml @ 48 mls/hr [id number] IV 06/11/24 20:00 06/12/24 19:59 Metoprolol Tartrate 5 mg BID IV 06/11/24 13:45 UNV Diltiazem HCl 10 mg Q8H IV 06/11/24 14:45 06/11/24 15:43 10 MG Vancomycin HCl 150 ml @ 150 mls/hr Q18H IV 06/11/24 16:00 06/11/24 16:45 150 MLS/HR objective Gen.: Patient lying in bed in medical ICU. Sedated, intubated on mechanical ventilator. Head: Normocephalic, atraumatic. Eyes: PERRLA. Ears: Normal external anatomy. Throat: Endotracheal tube and orogastric tube in place. Neck: Supple, trachea midline. Chest: Transmitted breath sounds bilaterally. Decreased air entry bilaterally. No wheezing. Bibasilar crackles. Cardiovascular: Positive S1, positive S2. Regular rate and rhythm. Abdomen: Positive bowel sounds in all 4 quadrants. Soft, nontender, nondistended. : Grewal in place. Normal external genitalia. Rectal: Deferred. Skin: Warm, dry. Intact. Extremities: 2+ radial pulses bilaterally. No lower extremity edema. Neuro: Sedated. laboratory and microbiology Laboratory Tests 06/11/24 03:49 Test 06/11/24 03:49 Range/Units Serum Glucose 163 H 74-106 mg/dL Assessment/Plan Impression: Septic shock Acute hypoxic respiratory failure Acute kidney injury Small bowel obstruction Atrial fibrillation Hx of gastric bypass (Dave-en-Y) Obesity, BMI 34.2 Events: Remains intubated, on mechanical ventilator. On AC mode; RR 24, VT 500, PEEP of 5, FiO2 30% S/p 1 unit PRBC transfusion Hemoglobin 6.8 g/dL - continue to monitor. Sedated on Versed and Fentanyl. Pressors for hemodynamic support On vasopressin 0.02 units/min Titrate to keep mean arterial pressure greater than 65 mmHg. Off Levophed TPN for nutritional support. ABG reviewed, compensated Continue antibiotics Wound care. LR at 100 ml/hr for IV fluid hydration Will plan for CPAP with PS 8, PEEP of 5. OK to increase PS to max 20 cmH2O to achieve tidal volume 400-450 mL. Patient is s/p exploratory laparotomy with lysis of adhesions. Rest of plan as noted below. Plan: S/p central line placement. Needed for administration of pressors. S/p intubation on mechanical ventilator. On AC mode; RR 24, VT 500, PEEP of 5, FiO2 30% Sedated on Versed and Fentanyl. Antibiotics Pressors as necessary for hemodynamic support Titrate to keep mean arterial pressure greater than 65 mmHg. GI recommendations appreciated. Monitor WBC Hemoglobin - monitor Monitor renal function. Monitor electrolytes. Supplement as necessary. Monitor ins and outs. Creatinine trending down. Diet and lifestyle modifications discussed Obesity - complicates all care. DVT prophylaxis. Prognosis: Poor given patient's multiple co-morbidities. Condition: Critical Rest of plan per hospitalist and other consultants. A total of 35 minutes of critical care time was spent reviewing the patient record, examining the patient, making a diagnostic and therapeutic plan, discussing this plan with the medical personnel, following up on diagnostic studies and following the patient for clinical stability excluding any and all procedures. At least 50% of this time was spent in direct, [id number] contact. Thank you S JENNA Mcnamara, for allowing me to participate in this patient's care. Further recommendations will depend on the patient's clinical course. Please do not hesitate to contact me if you have any questions or concerns. This medical document was created using an electronic medical record system with [employer] dictation system. Although these documentations are being carefully reviewed, there may still be some phonetic and typographical changes. The errors are purely typographical, due to imperfection on the software program, and do not reflect any compromise in the patient's medical care Dietary Evaluation Review Comments: 1. advance diet as tolerated per MD 2. Consider EN/TPN if Pt remains NPO for 48 hours Expected Outcomes/Goals: 1. Pt will consume >75% estimated needs within 2-3 days Plan discussed with: Other (NIRAV Weems) Critical Care Time(min): 35 PRISCILLA CORREA MD Jun 11, 2024 18:46
--- NOTE | 2024-06-11 19:14 | DVHPN2 ---
Progress Note - Dictate Date Seen: Jun 11, 2024 Medical Necessity Reason Pt with a Central, PICC or Fol: Yes The following are medically ne: Central Line, Grewal Catheter Reason for grewal catheter: Strict I&O Subjective Patient had a drop in his hemoglobin to 6.8 Transfused 1 unit PRBC No active GI bleeding was reported NG tube output is bilious PROCEDURES: Exploratory laparotomy with drainage of intra-abdominal abscess, lysis of adhesions, and small bowel resection and anastomosis with revision of the distal gastric bypass anastomosis. vital signs Vital Sign Date Time Temp Pulse Resp B/P (MAP) Pulse Ox O2 Delivery O2 Flow Rate FiO2 06/11/24 18:36 100 25 155/55 (88) 97 30 06/11/24 18:30 98.1 208.6 06/11/24 18:00 Mechanical Ventilator+ 06/11/24 13:47 70.0 Total Intake and Output 06/10/24 06/10/24 06/11/24 15:00 23:00 07:00 Intake Total 1776.75 ml 1519.25 ml 1531.25 ml Output Total 850 ml 900 ml Balance 1776.75 ml 669.25 ml 631.25 ml medications Current Medications Medications Dose Ordered Sig/Jason Route Start Time Stop Time Status Last Admin Dose Admin Ondansetron HCl 4 mg Q4HP PRN IV 05/22/24 15:00 06/06/24 02:47 4 MG Acetaminophen 650 mg Q6HP PRN PO 05/22/24 15:00 05/29/24 21:55 650 MG Citalopram Hydrobromide 20 mg DAILY PO 05/23/24 10:00 06/11/24 10:10 20 MG Hydralazine HCl 10 mg Q6HP PRN IV 05/23/24 05:00 05/24/24 01:34 10 MG Prochlorperazine Edisylate 10 mg Q6HP PRN IV 05/23/24 12:00 06/04/24 12:42 10 MG Atorvastatin Calcium 20 mg DAILY PO 05/24/24 10:00 06/11/24 10:10 20 MG Nortriptyline HCl 50 mg HS PO 05/23/24 22:00 06/05/24 21:48 50 MG Tamsulosin HCl 0.4 mg QPM PO 05/23/24 18:00 06/11/24 18:05 0.4 MG Docusate Calcium 240 mg DAILY PO 06/03/24 12:33 06/03/24 19:44 240 MG Metoprolol Tartrate 10 mg BID PO 06/03/24 22:00 UNV Sennosides 8.6 mg DAILYP PO 06/03/24 12:33 06/11/24 10:10 8.6 MG Duloxetine HCl 60 mg DAILY PO 06/03/24 12:34 06/11/24 10:10 60 MG Metoprolol Tartrate 25 mg BID PO 06/03/24 22:00 Hold 06/03/24 22:43 25 MG Norepinephrine Bitartrate 250 ml @ 3.75 mls/hr Q24H IV 06/04/24 13:30 06/10/24 06:18 15 MLS/HR Metoprolol Tartrate 5 mg Q4HP PRN IV 06/05/24 11:15 Hold Pantoprazole Sodium 40 mg DAILY IV 06/06/24 10:00 06/11/24 10:11 40 MG Amino Acids 0 ml @ 0 mls/hr PER PHARMACY IV 06/07/24 13:30 Diagnostic Test (Pha) 1 strip Q6HR 06/07/24 18:00 06/11/24 17:42 1 STRIP Insulin Human Regular FOLLOW SLIDING SCALE Q6HR SC 06/07/24 18:00 06/11/24 17:43 2 UNITS Dextrose 50 ml UD IV 06/07/24 14:15 Morphine Sulfate 2 mg Q4HPRN PRN IV 06/08/24 10:45 Midazolam HCl 50 ml @ 3 mls/hr [id number] IV 06/08/24 15:45 06/10/24 12:07 4 MLS/HR Fentanyl Citrate 250 ml @ 10 mls/hr Q24H IV 06/08/24 15:45 06/11/24 04:39 20 MLS/HR Vasopressin 20 units/Sodium Chloride 100 ml @ 9 mls/hr Q11H7M IV 06/09/24 07:30 06/11/24 00:26 9 MLS/HR Phenylephrine HCl 250 ml @ 30 mls/hr Q8H20M IV 06/09/24 07:30 Acetaminophen 650 mg Q6HP PRN TN 06/09/24 08:15 Lactated Ringer's 1,000 ml @ 100 mls/hr Q10H IV 06/09/24 10:00 06/11/24 18:55 100 MLS/HR Vancomycin HCl 0 ml @ 0 mls/hr UD IV 06/09/24 14:45 Enoxaparin Sodium 100 mg Q12HR SC 06/09/24 22:00 06/11/24 10:09 100 MG Fat Emulsion Intravenous 100 ml/Sodium Acetate 30 meq/Potassium Phosphate 30 meq/ Magnesium Sulfate 12 meq/ Multivitamins 10 ml/Chromium/ Copper/Manganese/ Zinc 1 ml/Insulin Human Regular 6 units/Amino Acids/ Dextrose 1,085.88 ml @ 45 mls/hr Q24H8M IV 06/10/24 20:00 06/11/24 19:59 06/10/24 20:37 45 MLS/HR Piperacillin Sod/ Tazobactam Sod 100 ml @ 25 mls/hr Q8H IV 06/10/24 20:00 06/11/24 13:24 25 MLS/HR Fat Emulsion Intravenous 100 ml/Sodium Acetate 40 meq/Potassium Phosphate 22 meq/ Magnesium Sulfate 16 meq/ Multivitamins 10 ml/Chromium/ Copper/Manganese/ Zinc 1 ml/Insulin Human Regular 4 units/Amino Acids/ Dextrose 1,140.04 ml @ 48 mls/hr [id number] IV 06/11/24 20:00 06/12/24 19:59 Metoprolol Tartrate 5 mg BID IV 06/11/24 13:45 UNV Diltiazem HCl 10 mg Q8H IV 06/11/24 14:45 06/11/24 15:43 10 MG Vancomycin HCl 150 ml @ 150 mls/hr Q18H IV 06/11/24 16:00 06/11/24 16:45 150 MLS/HR objective General Appearance: Intubated sedated HEENT: EOMI, PERRLA, normal external inspect of ears, no icterus, no nasal drainage Neck: no carotid bruit, no jugular venous distention (JVD), no lymphadenopathy Chest: normal thorax Respiratory: clear to auscultation, normal air movement Cardiovascular: regular rate and rhythm, no diastolic murmur, no jugular venous distention (JVD), no rub, no systolic murmur Abdominal: soft, no hepatomegaly, no mass, no splenomegaly, dressing dry binder in place GIANNA drain Musculoskeletal: no joint tenderness, no swelling Extremities: normal pulses, no calf tenderness, no clubbing, no cyanosis, no edema Skin: no bruising, no jaundice, no rash Neurological: alert, No focal deficit laboratory and microbiology Laboratory Tests 06/11/24 03:49 Test 06/11/24 03:49 Range/Units Serum Glucose 163 H 74-106 mg/dL Problems(with codes): (1) INTESTINAL OBSTRUCT NOS (2) N&V (nausea and vomiting) (3) Hypotension (4) CHR PULMON HEART DIS NEC Prognosis Plan Continue NG tube to low intermittent suction IV Protonix 40 mg q.12 hours Continue IV Clinimix and nutritional support Once hemoglobin is stabilized then the patient will be considered for possible CPAP trial If hemoglobin drops below eight we will transfuse one more unit PRBC Dietary Evaluation Review Comments: 1. advance diet as tolerated per MD 2. Consider EN/TPN if Pt remains NPO for 48 hours Expected Outcomes/Goals: 1. Pt will consume >75% estimated needs within 2-3 days Plan discussed with: Spouse (ICU Nurse), Other (ICU Nurse) SRINIVASAN ALVARES MD Jun 11, 2024 19:14
[2024-06-11] MEDS: TPN PER PHARMACY IV NR (20:33)
--- NOTE | 2024-06-11 21:37 | DVHPN2 ---
Progress Note Date Seen: Jun 11, 2024 Medical Necessity Reason Pt with a Central, PICC or Fol: Yes The following are medically ne: Central Line, Grewal Catheter Reason for grewal catheter: Strict I&O Subjective Review of Systems: Not Done (Patient is intubated and sedated) Objective vital signs Vital Sign Date Time Temp Pulse Resp B/P (MAP) Pulse Ox O2 Delivery O2 Flow Rate FiO2 06/11/24 20:26 98 24 98 Mechanical Ventilator+ 30 30 06/11/24 20:15 98.4 121/63 (82) 209.1 140/54 (82) 06/11/24 13:47 70.0 Total Intake and Output 06/10/24 06/10/24 06/11/24 15:00 23:00 07:00 Intake Total 1776.75 ml 1519.25 ml 1531.25 ml Output Total 850 ml 900 ml Balance 1776.75 ml 669.25 ml 631.25 ml medications Current Medications Medications Dose Ordered Sig/Jason Route Start Time Stop Time Status Last Admin Dose Admin Ondansetron HCl 4 mg Q4HP PRN IV 05/22/24 15:00 06/06/24 02:47 4 MG Acetaminophen 650 mg Q6HP PRN PO 05/22/24 15:00 05/29/24 21:55 650 MG Citalopram Hydrobromide 20 mg DAILY PO 05/23/24 10:00 06/11/24 10:10 20 MG Hydralazine HCl 10 mg Q6HP PRN IV 05/23/24 05:00 05/24/24 01:34 10 MG Prochlorperazine Edisylate 10 mg Q6HP PRN IV 05/23/24 12:00 06/04/24 12:42 10 MG Atorvastatin Calcium 20 mg DAILY PO 05/24/24 10:00 06/11/24 10:10 20 MG Nortriptyline HCl 50 mg HS PO 05/23/24 22:00 06/05/24 21:48 50 MG Tamsulosin HCl 0.4 mg QPM PO 05/23/24 18:00 06/11/24 18:05 0.4 MG Docusate Calcium 240 mg DAILY PO 06/03/24 12:33 06/03/24 19:44 240 MG Metoprolol Tartrate 10 mg BID PO 06/03/24 22:00 UNV Sennosides 8.6 mg DAILYP PO 06/03/24 12:33 06/11/24 10:10 8.6 MG Duloxetine HCl 60 mg DAILY PO 06/03/24 12:34 06/11/24 10:10 60 MG Metoprolol Tartrate 25 mg BID PO 06/03/24 22:00 Hold 06/03/24 22:43 25 MG Norepinephrine Bitartrate 250 ml @ 3.75 mls/hr Q24H IV 06/04/24 13:30 06/10/24 06:18 15 MLS/HR Metoprolol Tartrate 5 mg Q4HP PRN IV 06/05/24 11:15 Hold Pantoprazole Sodium 40 mg DAILY IV 06/06/24 10:00 06/11/24 10:11 40 MG Amino Acids 0 ml @ 0 mls/hr PER PHARMACY IV 06/07/24 13:30 Diagnostic Test (Pha) 1 strip Q6HR 06/07/24 18:00 06/11/24 17:42 1 STRIP Insulin Human Regular FOLLOW SLIDING SCALE Q6HR SC 06/07/24 18:00 06/11/24 17:43 2 UNITS Dextrose 50 ml UD IV 06/07/24 14:15 Morphine Sulfate 2 mg Q4HPRN PRN IV 06/08/24 10:45 Midazolam HCl 50 ml @ 3 mls/hr [id number] IV 06/08/24 15:45 06/10/24 12:07 4 MLS/HR Fentanyl Citrate 250 ml @ 10 mls/hr Q24H IV 06/08/24 15:45 06/11/24 04:39 20 MLS/HR Vasopressin 20 units/Sodium Chloride 100 ml @ 9 mls/hr Q11H7M IV 06/09/24 07:30 06/11/24 00:26 9 MLS/HR Phenylephrine HCl 250 ml @ 30 mls/hr Q8H20M IV 06/09/24 07:30 Acetaminophen 650 mg Q6HP PRN MA 06/09/24 08:15 Lactated Ringer's 1,000 ml @ 100 mls/hr Q10H IV 06/09/24 10:00 06/11/24 18:55 100 MLS/HR Vancomycin HCl 0 ml @ 0 mls/hr UD IV 06/09/24 14:45 Enoxaparin Sodium 100 mg Q12HR SC 06/09/24 22:00 06/11/24 10:09 100 MG Piperacillin Sod/ Tazobactam Sod 100 ml @ 25 mls/hr Q8H IV 06/10/24 20:00 06/11/24 19:47 25 MLS/HR Fat Emulsion Intravenous 100 ml/Sodium Acetate 40 meq/Potassium Phosphate 22 meq/ Magnesium Sulfate 16 meq/ Multivitamins 10 ml/Chromium/ Copper/Manganese/ Zinc 1 ml/Insulin Human Regular 4 units/Amino Acids/ Dextrose 1,140.04 ml @ 48 mls/hr [id number] IV 06/11/24 20:00 06/12/24 19:59 06/11/24 20:33 48 MLS/HR Metoprolol Tartrate 5 mg BID IV 06/11/24 13:45 UNV Diltiazem HCl 10 mg Q8H IV 06/11/24 14:45 06/11/24 15:43 10 MG Vancomycin HCl 150 ml @ 150 mls/hr Q18H IV 06/11/24 16:00 06/11/24 16:45 150 MLS/HR Examination: LUNGS:Abnormal (Diminished on mechanical ventilator), CVS:Normal, ABDOMEN:Normal, SKIN:Normal, NEURO:Abnormal (Sedated) laboratory and microbiology Laboratory Tests 06/11/24 03:49 Test 06/11/24 03:49 Range/Units Serum Glucose 163 H 74-106 mg/dL Microbiology Date/Time Source Procedure Growth Status 06/09/24 18:42 Lung Pending Resulted 06/09/24 18:42 Lung Pending Resulted 06/09/24 18:42 Lung Pending Resulted 06/09/24 18:42 Lung Pending Resulted 06/09/24 18:42 Lung - Final See Separate Report... Resulted 06/09/24 18:42 Bronchial Washings Gram Stain - Final Complete 06/09/24 18:42 Respiratory Culture - Final Escherichia coli Complete Labs and/or images reviewed: Labs reviewed by me, Image(s) reviewed by me Problem List/Assessment/Plan Problem List/Assessment/Plan 1. Small bowel obstruction Monitor, surgical consult, GI consult, NPO 2. HLD Monitor 3. Persistent atrial fibrillation Monitor, full dose Lovenox 4. Obesity Monitor 5. Hx gastric bypass Monitor 6. Benign essential HTN Monitor, antihypertensives 7. Gallstones Monitor, surgical consult, GI consult, NPO, HIDA scan 8. Sepsis Monitor 9. Septic Shock Monitor 10. Acute renal failure Monitor, nephrology consult Assessment/Plan Subjective Patient remains intubated and on the ventilator. Objective Sedated at this time coming off vasopressors. Patient is s/p surgery for intra- abdominal abscess, lysis of adhesions, small bowel resection, and revision of gastric bypass anastomosis Hemoglobin is 6.8, was transfused 1 unit of PRBCs . Plan continue current antibiotic recommendations. Replace electrolytes as needed. Repeat CBC ordered for a.m. Ventilator management per pulmonary, advance diet per surgeon Plan discussed with: Patient My Orders My Orders Orders - KONRAD ROCKWELL Procedure Category Date Status Time Hemoglobin & LAB 06/11/24 Logged Hematocrit 21:32 Dietary Evaluation Review Comments: 1. advance diet as tolerated per MD 2. Consider EN/TPN if Pt remains NPO for 48 hours Expected Outcomes/Goals: 1. Pt will consume >75% estimated needs within 2-3 days Date of Service: Jun 11, 2024 Billing Provider: RICA HELLER MD Common Visit Codes: [id number] INP/OBS CARE (MOD) KONRAD ROCKWELL Jun 11, 2024 21:37
[2024-06-11 22:44] LABS: Hematocrit 29.3 % (41.0-53.0); Hemoglobin 9.6 g/dL (13.5-17.5)
[2024-06-12] VITALS (110 sets, daily range): BP systolic 75–204; BP diastolic 44–84; PULSE 74–106; RESP 12–31; TEMP 97.7–100; O2SAT 94–100
[2024-06-12 05:10] LABS: Basophils # (auto) 0 10 ^3/uL (0-0.2); Basophils % (auto) 0.1 % (0.0-2.0); Eosinophils # (auto) 0 10 ^3/uL (0-0.8); Eosinophils % (auto) 0.2 % (0.0-7.0); Hematocrit 28.3 % (41.0-53.0); Hemoglobin 9.4 g/dL (13.5-17.5); Lymphocytes # (auto) 0.6 10 ^3/uL (0.4-5.4); Lymphocytes % (auto) 9.2 % (10.0-50.0); Mean Corpuscular Hgb Conc. 33.2 g/dL (32.0-36.0); Mean Corpuscular Volume 87.3 fL (80.0-100.0); Monocytes # (auto) 0.4 10 ^3/uL (0-1.3); Monocytes % (auto) 5.3 % (0.0-12.0); Neutrophils # (auto) 5.9 10 ^3/uL (1.6-8.6); Neutrophils % (auto) 85.2 % (37.0-80.0); Nucleated Red Blood Cells % 0.2 %; Platelet Count (auto) 200 10^3/uL (140-450); Red Blood Cells 3.24 10^6/uL (4.5-5.90); Red Cell Distribution Width 17.8 % (11.8-14.3); White Blood Cell 6.9 10^3/uL (4.4-10.8)
[2024-06-12 05:18] LABS: Alanine Aminotransferase 16 U/L (7-40); Alkaline Phosphatase 178 U/L (46-116); Anion Gap 6 (5-15); BUN/Creatinine Ratio 29.7 (10.0-20.0); Blood Urea Nitrogen 30 mg/dL (9-23); Calcium 8.5 mg/dL (8.7-10.4); Carbon Dioxide 23 mmol/L (20-31); Chloride 109 mmol/L (98-107); Glucose 123 mg/dL (74-106); Magnesium 1.7 mg/dL (1.6-2.6); Potassium 3.9 mmol/L (3.5-5.1); Sodium 138 mmol/L (136-145)
[2024-06-12 05:19] LABS: Albumin 2.3 g/dL (3.2-4.8); Aspartate Aminotransferase 16 U/L (13-40); Bilirubin, Total 0.6 mg/dL (0.2-1.0); Phosphorus 2.7 mg/dL (2.4-5.1); Total Protein 4.1 g/dL (5.7-8.2)
[2024-06-12 08:34] LABS: Base Excess -2.4 mmol/L (-2.0-3.0)
--- NOTE | 2024-06-12 09:19 | DVHPN2 ---
Progress Note - Dictate Date Seen: Jun 12, 2024 Medical Necessity Reason Pt with a Central, PICC or Fol: Yes The following are medically ne: Central Line, Grewal Catheter Reason for grewal catheter: Strict I&O Subjective Patient seen and examined at bedside. Sedated, intubated on mechanical ventilator. Overnight events reviewed. vital signs Vital Sign Date Time Temp Pulse Resp B/P (MAP) Pulse Ox O2 Delivery O2 Flow Rate FiO2 06/12/24 09:00 186/67 06/12/24 08:06 91 24 100 30 06/12/24 06:45 98.6 209.5 06/12/24 05:48 Mechanical Ventilator+ 06/11/24 13:47 70.0 Total Intake and Output 06/11/24 06/11/24 06/12/24 15:00 23:00 07:00 Intake Total 1753.0 ml 1924.0 ml 1356.5 ml Output Total 925 ml 750 ml Balance 1753.0 ml 999.0 ml 606.5 ml medications Current Medications Medications Dose Ordered Sig/Jason Route Start Time Stop Time Status Last Admin Dose Admin Ondansetron HCl 4 mg Q4HP PRN IV 05/22/24 15:00 06/06/24 02:47 4 MG Acetaminophen 650 mg Q6HP PRN PO 05/22/24 15:00 05/29/24 21:55 650 MG Citalopram Hydrobromide 20 mg DAILY PO 05/23/24 10:00 06/11/24 10:10 20 MG Hydralazine HCl 10 mg Q6HP PRN IV 05/23/24 05:00 06/12/24 09:00 10 MG Prochlorperazine Edisylate 10 mg Q6HP PRN IV 05/23/24 12:00 06/04/24 12:42 10 MG Atorvastatin Calcium 20 mg DAILY PO 05/24/24 10:00 06/11/24 10:10 20 MG Nortriptyline HCl 50 mg HS PO 05/23/24 22:00 06/05/24 21:48 50 MG Tamsulosin HCl 0.4 mg QPM PO 05/23/24 18:00 06/11/24 18:05 0.4 MG Docusate Calcium 240 mg DAILY PO 06/03/24 12:33 06/03/24 19:44 240 MG Metoprolol Tartrate 10 mg BID PO 06/03/24 22:00 UNV Sennosides 8.6 mg DAILYP PO 06/03/24 12:33 06/11/24 10:10 8.6 MG Duloxetine HCl 60 mg DAILY PO 06/03/24 12:34 06/11/24 10:10 60 MG Metoprolol Tartrate 25 mg BID PO 06/03/24 22:00 Hold 06/03/24 22:43 25 MG Norepinephrine Bitartrate 250 ml @ 3.75 mls/hr Q24H IV 06/04/24 13:30 06/10/24 06:18 15 MLS/HR Metoprolol Tartrate 5 mg Q4HP PRN IV 06/05/24 11:15 Hold Pantoprazole Sodium 40 mg DAILY IV 06/06/24 10:00 06/12/24 09:01 40 MG Amino Acids 0 ml @ 0 mls/hr PER PHARMACY IV 06/07/24 13:30 Diagnostic Test (Pha) 1 strip Q6HR 06/07/24 18:00 06/11/24 23:36 1 STRIP Insulin Human Regular FOLLOW SLIDING SCALE Q6HR SC 06/07/24 18:00 06/11/24 17:43 2 UNITS Dextrose 50 ml UD IV 06/07/24 14:15 Morphine Sulfate 2 mg Q4HPRN PRN IV 06/08/24 10:45 Midazolam HCl 50 ml @ 3 mls/hr [id number] IV 06/08/24 15:45 06/10/24 12:07 4 MLS/HR Fentanyl Citrate 250 ml @ 10 mls/hr Q24H IV 06/08/24 15:45 06/11/24 23:51 12.5 MLS/HR Vasopressin 20 units/Sodium Chloride 100 ml @ 9 mls/hr Q11H7M IV 06/09/24 07:30 06/11/24 00:26 9 MLS/HR Phenylephrine HCl 250 ml @ 30 mls/hr Q8H20M IV 06/09/24 07:30 Acetaminophen 650 mg Q6HP PRN ME 06/09/24 08:15 Lactated Ringer's 1,000 ml @ 100 mls/hr Q10H IV 06/09/24 10:00 06/12/24 04:13 100 MLS/HR Vancomycin HCl 0 ml @ 0 mls/hr UD IV 06/09/24 14:45 Enoxaparin Sodium 100 mg Q12HR SC 06/09/24 22:00 06/11/24 10:09 100 MG Piperacillin Sod/ Tazobactam Sod 100 ml @ 25 mls/hr Q8H IV 06/10/24 20:00 06/12/24 04:10 25 MLS/HR Fat Emulsion Intravenous 100 ml/Sodium Acetate 40 meq/Potassium Phosphate 22 meq/ Magnesium Sulfate 16 meq/ Multivitamins 10 ml/Chromium/ Copper/Manganese/ Zinc 1 ml/Insulin Human Regular 4 units/Amino Acids/ Dextrose 1,140.04 ml @ 48 mls/hr [id number] IV 06/11/24 20:00 06/12/24 19:59 06/11/24 20:33 48 MLS/HR Metoprolol Tartrate 5 mg BID IV 06/11/24 13:45 UNV Diltiazem HCl 10 mg Q8H IV 06/11/24 14:45 06/12/24 06:14 10 MG Vancomycin HCl 150 ml @ 150 mls/hr Q18H IV 06/11/24 16:00 06/12/24 09:01 150 MLS/HR objective Gen.: Patient lying in bed in medical ICU. Sedated, intubated on mechanical ventilator. Head: Normocephalic, atraumatic. Eyes: PERRLA. Ears: Normal external anatomy. Throat: Endotracheal tube and orogastric tube in place. Neck: Supple, trachea midline. Chest: Transmitted breath sounds bilaterally. Decreased air entry bilaterally. No wheezing. Bibasilar crackles. Cardiovascular: Positive S1, positive S2. Regular rate and rhythm. Abdomen: Positive bowel sounds in all 4 quadrants. Soft, nontender, nondistended. : Grewal in place. Normal external genitalia. Rectal: Deferred. Skin: Warm, dry. Intact. Extremities: 2+ radial pulses bilaterally. No lower extremity edema. Neuro: Sedated. laboratory and microbiology Laboratory Tests 06/12/24 04:08 Test 06/12/24 04:08 Range/Units Serum Glucose 123 H 74-106 mg/dL Assessment/Plan Impression: Septic shock Acute hypoxic respiratory failure Acute kidney injury Small bowel obstruction Atrial fibrillation Hx of gastric bypass ([id number]) Obesity, BMI 34.2 Events: Remains intubated, on mechanical ventilator. On AC mode; RR 24, VT 500, PEEP of 5, FiO2 30% Hemoglobin 9.4 g/dL - continue to monitor. S/p 1 unit PRBC transfusion Sedated on Fentanyl. Off pressors. Vasopressin turned off yesterday. TPN for nutritional support. ABG reviewed, slight alkalemia Continue antibiotics Wound care. LR at 100 ml/hr for IV fluid hydration Taper sedation Will plan for CPAP with PS 8, PEEP of 5. OK to increase PS to max 20 cmH2O to achieve tidal volume 400-450 mL. Patient is s/p exploratory laparotomy with lysis of adhesions. Rest of plan as noted below. Plan: S/p central line placement. Needed for administration of pressors. S/p intubation on mechanical ventilator. On AC mode; RR 24, VT 500, PEEP of 5, FiO2 30% Sedated on Versed and Fentanyl. Antibiotics Pressors as necessary for hemodynamic support Titrate to keep mean arterial pressure greater than 65 mmHg. GI recommendations appreciated. Monitor WBC Hemoglobin - monitor Monitor renal function. Monitor electrolytes. Supplement as necessary. Monitor ins and outs. Creatinine trending down. Diet and lifestyle modifications discussed Obesity - complicates all care. DVT prophylaxis. Prognosis: Poor given patient's multiple co-morbidities. Condition: Critical Rest of plan per hospitalist and other consultants. A total of 35 minutes of critical care time was spent reviewing the patient record, examining the patient, making a diagnostic and therapeutic plan, discussing this plan with the medical personnel, following up on diagnostic studies and following the patient for clinical stability excluding any and all procedures. At least 50% of this time was spent in direct, [id number] contact. Thank you S JENNA Mcnamara, for allowing me to participate in this patient's care. Further recommendations will depend on the patient's clinical course. Please do not hesitate to contact me if you have any questions or concerns. This medical document was created using an electronic medical record system with [employer] system. Although these documentations are being carefully reviewed, there may still be some phonetic and typographical changes. The errors are purely typographical, due to imperfection on the software program, and do not reflect any compromise in the patient's medical care Dietary Evaluation Review Comments: 1. advance diet as tolerated per MD 2. Consider EN/TPN if Pt remains NPO for 48 hours Expected Outcomes/Goals: 1. Pt will consume >75% estimated needs within 2-3 days Plan discussed with: Other (NIRAV Hernandez) Critical Care Time(min): 35 PRISCILLA CORREA MD Jun 12, 2024 09:19
--- NOTE | 2024-06-12 09:54 | DVHPN2 ---
Progress Note - Dictate Date Seen: Jun 12, 2024 Medical Necessity Reason Pt with a Central, PICC or Fol: Yes The following are medically ne: Central Line, Grewal Catheter Reason for grewal catheter: Strict I&O vital signs Vital Sign Date Time Temp Pulse Resp B/P (MAP) Pulse Ox O2 Delivery O2 Flow Rate FiO2 06/12/24 09:27 100 24 137/54 (81) 100 30 06/12/24 09:00 98.6 209.5 06/12/24 05:48 Mechanical Ventilator+ 06/11/24 13:47 70.0 Total Intake and Output 06/11/24 06/11/24 06/12/24 15:00 23:00 07:00 Intake Total 1753.0 ml 1924.0 ml 1356.5 ml Output Total 925 ml 750 ml Balance 1753.0 ml 999.0 ml 606.5 ml medications Current Medications Medications Dose Ordered Sig/Jason Route Start Time Stop Time Status Last Admin Dose Admin Ondansetron HCl 4 mg Q4HP PRN IV 05/22/24 15:00 06/06/24 02:47 4 MG Acetaminophen 650 mg Q6HP PRN PO 05/22/24 15:00 05/29/24 21:55 650 MG Citalopram Hydrobromide 20 mg DAILY PO 05/23/24 10:00 06/11/24 10:10 20 MG Hydralazine HCl 10 mg Q6HP PRN IV 05/23/24 05:00 06/12/24 09:00 10 MG Prochlorperazine Edisylate 10 mg Q6HP PRN IV 05/23/24 12:00 06/04/24 12:42 10 MG Atorvastatin Calcium 20 mg DAILY PO 05/24/24 10:00 06/11/24 10:10 20 MG Nortriptyline HCl 50 mg HS PO 05/23/24 22:00 06/05/24 21:48 50 MG Tamsulosin HCl 0.4 mg QPM PO 05/23/24 18:00 06/11/24 18:05 0.4 MG Docusate Calcium 240 mg DAILY PO 06/03/24 12:33 06/03/24 19:44 240 MG Metoprolol Tartrate 10 mg BID PO 06/03/24 22:00 UNV Sennosides 8.6 mg DAILYP PO 06/03/24 12:33 06/11/24 10:10 8.6 MG Duloxetine HCl 60 mg DAILY PO 06/03/24 12:34 06/11/24 10:10 60 MG Metoprolol Tartrate 25 mg BID PO 06/03/24 22:00 Hold 06/03/24 22:43 25 MG Norepinephrine Bitartrate 250 ml @ 3.75 mls/hr Q24H IV 06/04/24 13:30 06/10/24 06:18 15 MLS/HR Metoprolol Tartrate 5 mg Q4HP PRN IV 06/05/24 11:15 Hold Pantoprazole Sodium 40 mg DAILY IV 06/06/24 10:00 06/12/24 09:01 40 MG Amino Acids 0 ml @ 0 mls/hr PER PHARMACY IV 06/07/24 13:30 Diagnostic Test (Pha) 1 strip Q6HR 06/07/24 18:00 06/11/24 23:36 1 STRIP Insulin Human Regular FOLLOW SLIDING SCALE Q6HR SC 06/07/24 18:00 06/11/24 17:43 2 UNITS Dextrose 50 ml UD IV 06/07/24 14:15 Morphine Sulfate 2 mg Q4HPRN PRN IV 06/08/24 10:45 Midazolam HCl 50 ml @ 3 mls/hr [id number] IV 06/08/24 15:45 06/10/24 12:07 4 MLS/HR Fentanyl Citrate 250 ml @ 10 mls/hr Q24H IV 06/08/24 15:45 06/11/24 23:51 12.5 MLS/HR Vasopressin 20 units/Sodium Chloride 100 ml @ 9 mls/hr Q11H7M IV 06/09/24 07:30 06/11/24 00:26 9 MLS/HR Phenylephrine HCl 250 ml @ 30 mls/hr Q8H20M IV 06/09/24 07:30 Acetaminophen 650 mg Q6HP PRN AL 06/09/24 08:15 Lactated Ringer's 1,000 ml @ 100 mls/hr Q10H IV 06/09/24 10:00 06/12/24 04:13 100 MLS/HR Vancomycin HCl 0 ml @ 0 mls/hr UD IV 06/09/24 14:45 Enoxaparin Sodium 100 mg Q12HR SC 06/09/24 22:00 06/11/24 10:09 100 MG Piperacillin Sod/ Tazobactam Sod 100 ml @ 25 mls/hr Q8H IV 06/10/24 20:00 06/12/24 04:10 25 MLS/HR Fat Emulsion Intravenous 100 ml/Sodium Acetate 40 meq/Potassium Phosphate 22 meq/ Magnesium Sulfate 16 meq/ Multivitamins 10 ml/Chromium/ Copper/Manganese/ Zinc 1 ml/Insulin Human Regular 4 units/Amino Acids/ Dextrose 1,140.04 ml @ 48 mls/hr [id number] IV 06/11/24 20:00 06/12/24 19:59 06/11/24 20:33 48 MLS/HR Metoprolol Tartrate 5 mg BID IV 06/11/24 13:45 UNV Diltiazem HCl 10 mg Q8H IV 06/11/24 14:45 06/12/24 06:14 10 MG Vancomycin HCl 150 ml @ 150 mls/hr Q18H IV 06/11/24 16:00 06/12/24 09:01 150 MLS/HR laboratory and microbiology Laboratory Tests 06/12/24 04:08 Test 06/12/24 04:08 Range/Units Serum Glucose 123 H 74-106 mg/dL Assessment/Plan s/p Laparotomy (found to have contained bowel perforation, abscess) transferred to ICU On pressure support. On IV BB/CCB Had mechanical fall and found to have hip fracture. S/p ORIF Patient is a 74-year-old gentleman who presented on May 22, 2024 for epigastric pain. It seems that he ate sandwich in this was followed by repeated abdominal pain and vomiting. He has been admitted with small-bowel obstruction. He also was found to have gallstones and gastric outlet obstruction. He has been seen by surgery and GI. He has been having NG tube. Patient does have history of paroxysmal AFib and is on Eliquis as outpatient. On 05/24 2024, the patient was found to have tachyarrhythmia and cardiology was involved for its evaluation and management. Telemetry revealed tachyarrhythmia in the rate of 150s. Tele was in favor of SVT. Patient was attached to the monitor and 6 mg of adenosine was given which resulted in breaking of the tachyarrhythmia inpatient been back to sinus rhythm. As per patient, he usually follows with Cardiology in [facility]. As per patient, he did have angiogram (cardiac catheterization some years ago and was told that it was normal findings). Lying flat in bed and not in acute distress. No JVD. Mucosa is pink and wet. No carotid bruit. No goiter. Lungs are clear to auscultation. At the time of evaluation the patient started to be in tachyarrhythmia and in palpitation. Later, heart rate decreased. No thrill/gallop. Abdomen is soft. Extremities do not reveal edema Past medical history includes atrial fibrillation (on Eliquis as outpatient), DJD, heart failure (diastolic), COPD, hypertension, hyperlipidemia, reported diabetes mellitus, obesity, old history of tonsillectomy and gastric bypass surgery. He is known to have kidney stones. Echocardiogram of January 2020 revealed ejection fraction of 60% and biatrial enlargement Troponin (high sensitive): 19 - 11 TSH: 3.28 CT of the abdomen and pelvis revealed: IMPRESSION: 1. Cholelithiasis with the gallbladder distended. 2. Postop changes to the stomach with a fluid-filled distended stomach and dilated fluid-filled small bowel findings suggest small bowel obstruction. 3. Multiple bilateral nonobstructing renal calculi. 4. Prosthesis in the right hip. Chest x-ray revealed: Frontal chest radiograph demonstrates no acute osseous or superficial soft tissue abnormalities. Enteric tube visualized overlying the plane of the stomach. The trachea is midline. The cardiac silhouette and mediastinum are within normal limits. No pneumothorax, pleural effusions, or consolidations. Partially visualized gaseous distended loops of bowel. Repeat chest xry revealed: IMPRESSION: 1. Stable appearance of the support lines and tubes. 2. Bibasilar airspace disease similar to prior study. HIDA scan reported: IMPRESSION: 1. Findings may reflect chronic cholecystitis, cannot exclude acute cholecystitis due to lack of 30-60 minute images. KUB revealed: IMPRESSION: Findings concerning for small bowel obstruction versus ileus. Repeat KUB revealed: FINDINGS/IMPRESSION: Dilated loops of small bowel with gas and stool visualized in the colon. Findings appear improved compared to prior exam. Repeat KUB revealed: IMPRESSION: 1. There are air-filled dilated small bowel loops. Air and stool is seen within the colon. The findings appear mildly improved comparison to the prior study. The findings fairly stable and May relate to an ileus.. Clinical correlation and continued follow-up is recommended Repeat KUB revealed: Impression: 1. Nonobstructive bowel gas pattern. Gallbladder ultrasound reported: FINDINGS: Examination is limited. The gallbladder appears distended. The gallbladder wall measures 2 mm in thickness, within normal limits. Possible sludge in the gallbladder. Negative reported sonographic valladares's sign. The common bile duct measures 6 mm in diameter, within normal limits. The liver measures at the upper limits of normal in size, at 16.4 cm in craniocaudal dimension. Heterogeneous echotexture of the liver. The pancreas is obscured by bowel gas. The right kidney measures 9.6 cm. There is no hydronephrosis. Limited evaluation of the right kidney. Echogenic focus, possible renal calculus at the midpole measuring 1.4 cm. The patient does have renal calculi on recent CT exam. IMPRESSION: 1. Limited examination as described above. Possible gallbladder sludge and distended gallbladder. No sonographic evidence of acute cholecystitis. 2. Additional nonacute findings as described above. HIDA scan revealed: Impression: 1. Unremarkable hepatobiliary study without evidence of acute cholecystitis. Left Hip Xry: FINDINGS/IMPRESSION: There is a displaced and impacted left intertrochanteric fracture. Patient is status post right hip arthroplasty. EKG revealed SVT Tele revealed SVT which later transitioned into sinus rhythm Echocardiogram revealed: Technically limited study secondary to poor acoustic windows. Left ventricle: Mild concentric left ventricular hypertrophy was seen. LVEF was 55-60%. Right ventricle was normal size with normal systolic function. Both atria were mildly dilated. Aortic valve was not well visualized. Aortic sclerosis with no stenosis was observed. [id number] aortic insufficiency was observed. Mild mitral/tricuspid regurgitation was seen. Tricuspid valve was not well visualized. Right ventricular systolic pressure was assessed around 25 mm Hg. There was no pericardial effusion. Ascending aorta was 4.5 cm. Patient is a 74-year-old gentleman who presented with abdominal pain and is being managed for small bowel obstruction. He does have history of paroxysmal AFib. Has not been taking his medications regularly and this was followed with tachyarrhythmia. Tachyarrhythmia was in favor of SVT. SVT responded to adenosine Small-bowel obstruction Obesity History of gastric bypass Paroxysmal AFib SVT Status post adenosine management Diabetes mellitus Obesity, morbid Gallstone Renal stone s/p laparotomy bowel perforation Cardiac suggestion for management: For now, manage in ICU Follow-up electrolytes and kidney function tests and correct abnormalities Keep potassium above 4 and magnesium above 2 Continue Cardizem Fluid resuscitation Surgery and GI follow up Long-term continuation of anticoagulation is suggested (for now patient on Lovenox). .. Further evaluation and management depends on the above and clinical course A total of 75 minutes was spent reviewing the patient record, examining the patient, making a diagnostic and therapeutic plan, discussing this plan with medical personnel, following up on diagnostic studies and following the patient for clinical stability excluding any and all procedures. At least 50% of this time was spent in direct, [id number] contact. Thank you for allowing me to participate in this patient's care. Further recommendations will depend on patient's clinical course. Please do not hesitate to contact me if you have any questions or concerns. This medical document was created using electronic medical record system with [employer] computerized dictation system. Although this document has been carefully reviewed, there may still be some phonetic and typographical errors. These areas are purely typographical due to the imperfection of the software programs, and do not reflect any compromise in the patient's medical care. Dietary Evaluation Review Comments: 1. advance diet as tolerated per MD 2. Consider EN/TPN if Pt remains NPO for 48 hours Expected Outcomes/Goals: 1. Pt will consume >75% estimated needs within 2-3 days Plan discussed with: Other (nurse) BROOKS PRITCHARD MD Jun 12, 2024 09:54
--- NOTE | 2024-06-12 09:59 | MEDREC ---
[facility] ASP Intervention Section I [facility] ASP Intervention: Deescalate AB based on CS (PLEASE CONSIDER TO DE-ESCALATE ANTIBIOTICS BASED ON CULTURE RESULTS) AGGIE THOMPSON Jun 12, 2024 09:59
[2024-06-12] MEDS: LABETALOL HCL 20 MG/4 ML VL IV PRN (11:20)
[2024-06-12] MEDS: cefTRIAXone 1GM/50ML D5W 50 ML IV SCH (11:21)
--- NOTE | 2024-06-12 14:58 | DVHPN2 ---
Progress Note Date Seen: Jun 12, 2024 Medical Necessity Reason Pt with a Central, PICC or Fol: Yes The following are medically ne: Central Line, Grewal Catheter Reason for grewal catheter: Strict I&O Subjective Review of Systems: Not Done (unable to obtain due to mechanical ventillation ) Objective vital signs Vital Sign Date Time Temp Pulse Resp B/P (MAP) Pulse Ox O2 Delivery O2 Flow Rate FiO2 06/12/24 14:16 81 139/67 06/12/24 13:34 19 95 30 06/12/24 12:15 97.9 208.2 06/12/24 12:00 Mechanical Ventilator+ 06/11/24 13:47 70.0 Total Intake and Output 06/11/24 06/11/24 06/12/24 15:00 23:00 07:00 Intake Total 1753.0 ml 1924.0 ml 1356.5 ml Output Total 925 ml 750 ml Balance 1753.0 ml 999.0 ml 606.5 ml medications Current Medications Medications Dose Ordered Sig/Jason Route Start Time Stop Time Status Last Admin Dose Admin Ondansetron HCl 4 mg Q4HP PRN IV 05/22/24 15:00 06/06/24 02:47 4 MG Acetaminophen 650 mg Q6HP PRN PO 05/22/24 15:00 05/29/24 21:55 650 MG Citalopram Hydrobromide 20 mg DAILY PO 05/23/24 10:00 06/11/24 10:10 20 MG Hydralazine HCl 10 mg Q6HP PRN IV 05/23/24 05:00 06/12/24 09:00 10 MG Prochlorperazine Edisylate 10 mg Q6HP PRN IV 05/23/24 12:00 06/04/24 12:42 10 MG Atorvastatin Calcium 20 mg DAILY PO 05/24/24 10:00 06/11/24 10:10 20 MG Nortriptyline HCl 50 mg HS PO 05/23/24 22:00 06/05/24 21:48 50 MG Tamsulosin HCl 0.4 mg QPM PO 05/23/24 18:00 06/11/24 18:05 0.4 MG Docusate Calcium 240 mg DAILY PO 06/03/24 12:33 06/03/24 19:44 240 MG Metoprolol Tartrate 10 mg BID PO 06/03/24 22:00 UNV Sennosides 8.6 mg DAILYP PO 06/03/24 12:33 06/11/24 10:10 8.6 MG Duloxetine HCl 60 mg DAILY PO 06/03/24 12:34 06/11/24 10:10 60 MG Metoprolol Tartrate 25 mg BID PO 06/03/24 22:00 Hold 06/03/24 22:43 25 MG Norepinephrine Bitartrate 250 ml @ 3.75 mls/hr Q24H IV 06/04/24 13:30 06/10/24 06:18 15 MLS/HR Metoprolol Tartrate 5 mg Q4HP PRN IV 06/05/24 11:15 Hold Pantoprazole Sodium 40 mg DAILY IV 06/06/24 10:00 06/12/24 09:01 40 MG Amino Acids 0 ml @ 0 mls/hr PER PHARMACY IV 06/07/24 13:30 Diagnostic Test (Pha) 1 strip Q6HR 06/07/24 18:00 06/12/24 11:31 1 STRIP Insulin Human Regular FOLLOW SLIDING SCALE Q6HR SC 06/07/24 18:00 06/11/24 17:43 2 UNITS Dextrose 50 ml UD IV 06/07/24 14:15 Morphine Sulfate 2 mg Q4HPRN PRN IV 06/08/24 10:45 Midazolam HCl 50 ml @ 3 mls/hr [id number] IV 06/08/24 15:45 06/10/24 12:07 4 MLS/HR Fentanyl Citrate 250 ml @ 10 mls/hr Q24H IV 06/08/24 15:45 06/11/24 23:51 12.5 MLS/HR Vasopressin 20 units/Sodium Chloride 100 ml @ 9 mls/hr Q11H7M IV 06/09/24 07:30 06/11/24 00:26 9 MLS/HR Phenylephrine HCl 250 ml @ 30 mls/hr Q8H20M IV 06/09/24 07:30 Acetaminophen 650 mg Q6HP PRN [place] 06/09/24 08:15 Lactated Ringer's 1,000 ml @ 100 mls/hr Q10H IV 06/09/24 10:00 06/12/24 14:15 100 MLS/HR Enoxaparin Sodium 100 mg Q12HR SC 06/09/24 22:00 06/11/24 10:09 100 MG Fat Emulsion Intravenous 100 ml/Sodium Acetate 40 meq/Potassium Phosphate 22 meq/ Magnesium Sulfate 16 meq/ Multivitamins 10 ml/Chromium/ Copper/Manganese/ Zinc 1 ml/Insulin Human Regular 4 units/Amino Acids/ Dextrose 1,140.04 ml @ 48 mls/hr [id number] IV 06/11/24 20:00 06/12/24 19:59 06/11/24 20:33 48 MLS/HR Metoprolol Tartrate 5 mg BID IV 06/11/24 13:45 UNV Diltiazem HCl 10 mg Q8H IV 06/11/24 14:45 06/12/24 14:14 10 MG Ceftriaxone Sodium 50 ml @ 100 mls/hr DAILY@1000 IV 06/12/24 11:00 06/12/24 11:21 100 MLS/HR Labetalol HCl 10 mg Q2HPRN PRN IV 06/12/24 10:45 06/12/24 13:16 10 MG Fat Emulsion Intravenous 100 ml/Sodium Acetate 40 meq/Potassium Phosphate 44 meq/ Magnesium Sulfate 20 meq/ Multivitamins 10 ml/Chromium/ Copper/Manganese/ Zinc 1 ml/Insulin Human Regular 4 units/Amino Acids/ Dextrose 1,196.04 ml @ 50 mls/hr [id number] IV 06/12/24 20:00 06/13/24 19:59 Examination: LUNGS:Abnormal (diminished on mechanical vent), CVS:Normal, ABDOMEN:Normal, SKIN:Normal laboratory and microbiology Laboratory Tests 06/12/24 04:08 Test 06/12/24 04:08 Range/Units Serum Glucose 123 H 74-106 mg/dL Microbiology Date/Time Source Procedure Growth Status 06/09/24 18:42 Lung Pending Resulted 06/09/24 18:42 Lung Pending Resulted 06/09/24 18:42 Lung Pending Resulted 06/09/24 18:42 Lung Pending Resulted 06/09/24 18:42 Lung - Final See Separate Report... Resulted 06/09/24 18:42 Bronchial Washings Gram Stain - Final Complete 06/09/24 18:42 Respiratory Culture - Final Escherichia coli Complete Labs and/or images reviewed: Labs reviewed by me, Image(s) reviewed by me Problem List/Assessment/Plan Problem List/Assessment/Plan 1. Small bowel obstruction Monitor, surgical consult, GI consult, NPO 2. HLD Monitor 3. Persistent atrial fibrillation Monitor, full dose Lovenox 4. Obesity Monitor 5. Hx gastric bypass Monitor 6. Benign essential HTN Monitor, antihypertensives 7. Gallstones Monitor, surgical consult, GI consult, NPO, HIDA scan 8. Sepsis Monitor 9. Septic Shock Monitor 10. Acute renal failure Monitor, nephrology consult Assessment/Plan Subjective Patient remains intubated and on the ventilator. Objective Sedated at this time coming off vasopressors. Patient is s/p surgery for intra- abdominal abscess, lysis of adhesions, small bowel resection, and revision of gastric bypass anastomosis Hemoglobin is 9.4 . Blood pressure has been in the 180s systolic. Placed order for labetalol IV q.2h Plan continue current antibiotic recommendations. Replace electrolytes as needed. Repeat CBC ordered for a.m. Ventilator management per pulmonary, advance diet per surgeon. monitor BP Plan discussed with: Patient My Orders My Orders Orders - KONRAD ROCKWELL Procedure Category Date Status Time Labetalol Hcl PHA 06/12/24 In Process (Labetalol Hcl) 10:45 Dietary Evaluation Review Comments: 1. advance diet as tolerated per MD 2. Consider EN/TPN if Pt remains NPO for 48 hours Expected Outcomes/Goals: 1. Pt will consume >75% estimated needs within 2-3 days Date of Service: Jun 12, 2024 Billing Provider: RICA HELLER MD Common Visit Codes: [id number] INP/OBS CARE (MOD) KONRAD ROCKWELL Jun 12, 2024 14:58
--- NOTE | 2024-06-12 15:25 | DVHPN2 ---
Progress Note Date Seen: Jun 12, 2024 Medical Necessity Reason Pt with a Central, PICC or Fol: Yes The following are medically ne: Central Line, Grewal Catheter Reason for grewal catheter: Strict I&O Objective vital signs Vital Sign Date Time Temp Pulse Resp B/P (MAP) Pulse Ox O2 Delivery O2 Flow Rate FiO2 06/12/24 14:16 81 139/67 06/12/24 13:34 19 95 30 06/12/24 12:15 97.9 208.2 06/12/24 12:00 Mechanical Ventilator+ 06/11/24 13:47 70.0 Total Intake and Output 06/11/24 06/11/24 06/12/24 15:00 23:00 07:00 Intake Total 1753.0 ml 1924.0 ml 1356.5 ml Output Total 925 ml 750 ml Balance 1753.0 ml 999.0 ml 606.5 ml medications Current Medications Medications Dose Ordered Sig/Jason Route Start Time Stop Time Status Last Admin Dose Admin Ondansetron HCl 4 mg Q4HP PRN IV 05/22/24 15:00 06/06/24 02:47 4 MG Acetaminophen 650 mg Q6HP PRN PO 05/22/24 15:00 05/29/24 21:55 650 MG Citalopram Hydrobromide 20 mg DAILY PO 05/23/24 10:00 06/11/24 10:10 20 MG Hydralazine HCl 10 mg Q6HP PRN IV 05/23/24 05:00 06/12/24 09:00 10 MG Prochlorperazine Edisylate 10 mg Q6HP PRN IV 05/23/24 12:00 06/04/24 12:42 10 MG Atorvastatin Calcium 20 mg DAILY PO 05/24/24 10:00 06/11/24 10:10 20 MG Nortriptyline HCl 50 mg HS PO 05/23/24 22:00 06/05/24 21:48 50 MG Tamsulosin HCl 0.4 mg QPM PO 05/23/24 18:00 06/11/24 18:05 0.4 MG Docusate Calcium 240 mg DAILY PO 06/03/24 12:33 06/03/24 19:44 240 MG Metoprolol Tartrate 10 mg BID PO 06/03/24 22:00 UNV Sennosides 8.6 mg DAILYP PO 06/03/24 12:33 06/11/24 10:10 8.6 MG Duloxetine HCl 60 mg DAILY PO 06/03/24 12:34 06/11/24 10:10 60 MG Metoprolol Tartrate 25 mg BID PO 06/03/24 22:00 Hold 06/03/24 22:43 25 MG Norepinephrine Bitartrate 250 ml @ 3.75 mls/hr Q24H IV 06/04/24 13:30 06/10/24 06:18 15 MLS/HR Metoprolol Tartrate 5 mg Q4HP PRN IV 06/05/24 11:15 Hold Pantoprazole Sodium 40 mg DAILY IV 06/06/24 10:00 06/12/24 09:01 40 MG Amino Acids 0 ml @ 0 mls/hr PER PHARMACY IV 06/07/24 13:30 Diagnostic Test (Pha) 1 strip Q6HR 06/07/24 18:00 06/12/24 11:31 1 STRIP Insulin Human Regular FOLLOW SLIDING SCALE Q6HR SC 06/07/24 18:00 06/11/24 17:43 2 UNITS Dextrose 50 ml UD IV 06/07/24 14:15 Morphine Sulfate 2 mg Q4HPRN PRN IV 06/08/24 10:45 Midazolam HCl 50 ml @ 3 mls/hr [id number] IV 06/08/24 15:45 06/10/24 12:07 4 MLS/HR Fentanyl Citrate 250 ml @ 10 mls/hr Q24H IV 06/08/24 15:45 06/11/24 23:51 12.5 MLS/HR Vasopressin 20 units/Sodium Chloride 100 ml @ 9 mls/hr Q11H7M IV 06/09/24 07:30 06/11/24 00:26 9 MLS/HR Phenylephrine HCl 250 ml @ 30 mls/hr Q8H20M IV 06/09/24 07:30 Acetaminophen 650 mg Q6HP PRN [place] 06/09/24 08:15 Lactated Ringer's 1,000 ml @ 100 mls/hr Q10H IV 06/09/24 10:00 06/12/24 14:15 100 MLS/HR Enoxaparin Sodium 100 mg Q12HR SC 06/09/24 22:00 06/11/24 10:09 100 MG Fat Emulsion Intravenous 100 ml/Sodium Acetate 40 meq/Potassium Phosphate 22 meq/ Magnesium Sulfate 16 meq/ Multivitamins 10 ml/Chromium/ Copper/Manganese/ Zinc 1 ml/Insulin Human Regular 4 units/Amino Acids/ Dextrose 1,140.04 ml @ 48 mls/hr [id number] IV 06/11/24 20:00 06/12/24 19:59 06/11/24 20:33 48 MLS/HR Metoprolol Tartrate 5 mg BID IV 06/11/24 13:45 UNV Diltiazem HCl 10 mg Q8H IV 06/11/24 14:45 06/12/24 14:14 10 MG Ceftriaxone Sodium 50 ml @ 100 mls/hr DAILY@1000 IV 06/12/24 11:00 06/12/24 11:21 100 MLS/HR Labetalol HCl 10 mg Q2HPRN PRN IV 06/12/24 10:45 06/12/24 13:16 10 MG Fat Emulsion Intravenous 100 ml/Sodium Acetate 40 meq/Potassium Phosphate 44 meq/ Magnesium Sulfate 20 meq/ Multivitamins 10 ml/Chromium/ Copper/Manganese/ Zinc 1 ml/Insulin Human Regular 4 units/Amino Acids/ Dextrose 1,196.04 ml @ 50 mls/hr [id number] IV 06/12/24 20:00 06/13/24 19:59 laboratory and microbiology Laboratory Tests 06/12/24 04:08 Test 06/12/24 04:08 Range/Units Serum Glucose 123 H 74-106 mg/dL Microbiology Date/Time Source Procedure Growth Status 06/09/24 18:42 Lung Pending Resulted 06/09/24 18:42 Lung Pending Resulted 06/09/24 18:42 Lung Pending Resulted 06/09/24 18:42 Lung Pending Resulted 06/09/24 18:42 Lung - Final See Separate Report... Resulted 06/09/24 18:42 Bronchial Washings Gram Stain - Final Complete 06/09/24 18:42 Respiratory Culture - Final Escherichia coli Complete Problem List/Assessment/Plan Problem List/Assessment/Plan AFEBRILE VSS INTUBATED DEHYDRATED H/H LOW BUT NO ACTIVE BLEED NOTED ON VASOPRESSOR TRENDING DOWN ABD SOFT LESS DISTENDED NO BM WBC TRENDING DOWN URINE OUTPUT IMPROVED CONDITION CRITICAL CONTINUE SUPPORTIVE CARE NURSE AT BEDSIDE Plan discussed with: Patient My Orders My Orders Orders - MARTHA ALVARES MD Procedure Category Date Status Time Amino Acid PHA 06/12/24 In Process Infusion... W/Fat 20:00 Comprehensive LAB 06/13/24 Verified Metabolic Panel 04:00 Magnesium LAB 06/13/24 Verified 04:00 Phosphorus LAB 06/13/24 Verified 04:00 Tpn Per Pharmacy [facility] 06/12/24 In Process 20:00 Dietary Evaluation Review Comments: 1. advance diet as tolerated per MD 2. Consider EN/TPN if Pt remains NPO for 48 hours Expected Outcomes/Goals: 1. Pt will consume >75% estimated needs within 2-3 days MARTHA ALVARES MD Jun 12, 2024 15:25
--- NOTE | 2024-06-12 16:49 | DVH ---
Procedure: XY KUB ABDOMEN SINGLE VIEW Study Date and Requested Time: 06/12/2024 04:05 PM History: Ileus Comparison: XY KUB ABDOMEN SINGLE VIEW on DOS: 06/07/24, XY KUB ABDOMEN SINGLE VIEW on DOS: 06/03/24, X Y KUB ABDOMEN SINGLE VIEW on DOS: 05/29/24, XY KUB ABDOMEN SINGLE VIEW on DOS: 05/28/24, XY KUB ABDOMEN SINGLE VIEW on DOS: 05/25/24 Technique: 3 views of the abdomen and pelvis available for evaluation. Findings/ Impression: Postsurgical changes of the abdomen with skin lavern noted over the right hemiabdomen. Enteric tube is noted terminating within the stomach. There are gas-filled mildly distended small bowel loops which may be due to ileus with partial bowel obstruction not excluded. There is contrast noted within the nondistended large bowel. Bibasilar atelectasis. No acute bony abnormalities. Right total hip replacement with partially visualized intramedullary ro d and dynamic screw fixation of the left proximal femur
--- NOTE | 2024-06-12 16:56 | DVHPN2 ---
Progress Note - Dictate Date Seen: Jun 12, 2024 Medical Necessity Reason Pt with a Central, PICC or Fol: Yes The following are medically ne: Central Line, Grewal Catheter Reason for grewal catheter: Strict I&O vital signs Vital Sign Date Time Temp Pulse Resp B/P (MAP) Pulse Ox O2 Delivery O2 Flow Rate FiO2 06/12/24 16:30 83 24 115/55 (75) 154/53 (86) 06/12/24 16:15 98.4 97 98.4 06/12/24 16:00 Mechanical Ventilator+ 30 30 06/11/24 13:47 70.0 Total Intake and Output 06/11/24 06/11/24 06/12/24 15:00 23:00 07:00 Intake Total 1753.0 ml 1924.0 ml 1356.5 ml Output Total 925 ml 750 ml Balance 1753.0 ml 999.0 ml 606.5 ml medications Current Medications Medications Dose Ordered Sig/Jason Route Start Time Stop Time Status Last Admin Dose Admin Ondansetron HCl 4 mg Q4HP PRN IV 05/22/24 15:00 06/06/24 02:47 4 MG Acetaminophen 650 mg Q6HP PRN PO 05/22/24 15:00 05/29/24 21:55 650 MG Citalopram Hydrobromide 20 mg DAILY PO 05/23/24 10:00 06/11/24 10:10 20 MG Hydralazine HCl 10 mg Q6HP PRN IV 05/23/24 05:00 06/12/24 09:00 10 MG Prochlorperazine Edisylate 10 mg Q6HP PRN IV 05/23/24 12:00 06/04/24 12:42 10 MG Atorvastatin Calcium 20 mg DAILY PO 05/24/24 10:00 06/11/24 10:10 20 MG Nortriptyline HCl 50 mg HS PO 05/23/24 22:00 06/05/24 21:48 50 MG Tamsulosin HCl 0.4 mg QPM PO 05/23/24 18:00 06/11/24 18:05 0.4 MG Docusate Calcium 240 mg DAILY PO 06/03/24 12:33 06/03/24 19:44 240 MG Metoprolol Tartrate 10 mg BID PO 06/03/24 22:00 UNV Sennosides 8.6 mg DAILYP PO 06/03/24 12:33 06/11/24 10:10 8.6 MG Duloxetine HCl 60 mg DAILY PO 06/03/24 12:34 06/11/24 10:10 60 MG Metoprolol Tartrate 25 mg BID PO 06/03/24 22:00 Hold 06/03/24 22:43 25 MG Norepinephrine Bitartrate 250 ml @ 3.75 mls/hr Q24H IV 06/04/24 13:30 06/10/24 06:18 15 MLS/HR Metoprolol Tartrate 5 mg Q4HP PRN IV 06/05/24 11:15 Hold Pantoprazole Sodium 40 mg DAILY IV 06/06/24 10:00 06/12/24 09:01 40 MG Amino Acids 0 ml @ 0 mls/hr PER PHARMACY IV 06/07/24 13:30 Diagnostic Test (Pha) 1 strip Q6HR 06/07/24 18:00 06/12/24 11:31 1 STRIP Insulin Human Regular FOLLOW SLIDING SCALE Q6HR SC 06/07/24 18:00 06/11/24 17:43 2 UNITS Dextrose 50 ml UD IV 06/07/24 14:15 Morphine Sulfate 2 mg Q4HPRN PRN IV 06/08/24 10:45 Midazolam HCl 50 ml @ 3 mls/hr [id number] IV 06/08/24 15:45 06/10/24 12:07 4 MLS/HR Fentanyl Citrate 250 ml @ 10 mls/hr Q24H IV 06/08/24 15:45 06/11/24 23:51 12.5 MLS/HR Vasopressin 20 units/Sodium Chloride 100 ml @ 9 mls/hr Q11H7M IV 06/09/24 07:30 06/11/24 00:26 9 MLS/HR Phenylephrine HCl 250 ml @ 30 mls/hr Q8H20M IV 06/09/24 07:30 Acetaminophen 650 mg Q6HP PRN [place] 06/09/24 08:15 Lactated Ringer's 1,000 ml @ 100 mls/hr Q10H IV 06/09/24 10:00 06/12/24 14:15 100 MLS/HR Enoxaparin Sodium 100 mg Q12HR SC 06/09/24 22:00 06/11/24 10:09 100 MG Fat Emulsion Intravenous 100 ml/Sodium Acetate 40 meq/Potassium Phosphate 22 meq/ Magnesium Sulfate 16 meq/ Multivitamins 10 ml/Chromium/ Copper/Manganese/ Zinc 1 ml/Insulin Human Regular 4 units/Amino Acids/ Dextrose 1,140.04 ml @ 48 mls/hr [id number] IV 06/11/24 20:00 06/12/24 19:59 06/11/24 20:33 48 MLS/HR Metoprolol Tartrate 5 mg BID IV 06/11/24 13:45 UNV Diltiazem HCl 10 mg Q8H IV 06/11/24 14:45 06/12/24 14:14 10 MG Ceftriaxone Sodium 50 ml @ 100 mls/hr DAILY@1000 IV 06/12/24 11:00 06/12/24 11:21 100 MLS/HR Labetalol HCl 10 mg Q2HPRN PRN IV 06/12/24 10:45 06/12/24 13:16 10 MG Fat Emulsion Intravenous 100 ml/Sodium Acetate 40 meq/Potassium Phosphate 44 meq/ Magnesium Sulfate 20 meq/ Multivitamins 10 ml/Chromium/ Copper/Manganese/ Zinc 1 ml/Insulin Human Regular 4 units/Amino Acids/ Dextrose 1,196.04 ml @ 50 mls/hr [id number] IV 06/12/24 20:00 06/13/24 19:59 laboratory and microbiology Laboratory Tests 06/12/24 04:08 Test 06/12/24 04:08 Range/Units Serum Glucose 123 H 74-106 mg/dL Assessment/Plan SYBIL secondary to hemodynamic mediated, FeNa < 1% (Cr 1.0 on admission 05/22/24) BPH with LUTS Septic shock Bilateral nonobstructing nephrolithiasis s/p ORIF left hip 05/27 Hypotension Chronic diastolic HF A fib Small-bowel obstruction /abscess/ perforation s/p SMALL BOWEL RESECTION WITH ANASTOMOSIS OF EFFERENT LIMB REVISION OF AFFERENT LIMB ANASTOMOSIS DISTAL TO THE EFFERENT LIMB NEW ANASTOMOSIS h/o gastric bypass Hypokalemia Hypomagnesemia vdrf post op anemia SYBIL resolving Continue IV fluid Avoid hypotension Dietary Evaluation Review Comments: 1. advance diet as tolerated per MD 2. Consider EN/TPN if Pt remains NPO for 48 hours Expected Outcomes/Goals: 1. Pt will consume >75% estimated needs within 2-3 days Plan discussed with: Other Critical Care Time(min): 33 OLADELE,LUIS M MD Jun 12, 2024 16:56
[2024-06-12] MEDS: TPN PER PHARMACY IV NR (20:43)
--- NOTE | 2024-06-12 21:28 | DVHPN2 ---
Progress Note - Dictate Date Seen: Jun 12, 2024 Medical Necessity Reason Pt with a Central, PICC or Fol: Yes The following are medically ne: Central Line, Grewal Catheter Reason for grewal catheter: Strict I&O Subjective No new complaints Patient is still intubated sedated Repeat hemoglobin above nine No active GI bleeding was reported NG tube output is bilious PROCEDURES: Exploratory laparotomy with drainage of intra-abdominal abscess, lysis of adhesions, and small bowel resection and anastomosis with revision of the distal gastric bypass anastomosis. vital signs Vital Sign Date Time Temp Pulse Resp B/P (MAP) Pulse Ox O2 Delivery O2 Flow Rate FiO2 06/12/24 20:13 97 26 186/77 (113) 100 30 06/12/24 18:45 99.0 210.2 06/12/24 18:00 Mechanical Ventilator+ 06/11/24 13:47 70.0 Total Intake and Output 06/11/24 06/11/24 06/12/24 15:00 23:00 07:00 Intake Total 1753.0 ml 1924.0 ml 1356.5 ml Output Total 925 ml 750 ml Balance 1753.0 ml 999.0 ml 606.5 ml medications Current Medications Medications Dose Ordered Sig/Jason Route Start Time Stop Time Status Last Admin Dose Admin Ondansetron HCl 4 mg Q4HP PRN IV 05/22/24 15:00 06/06/24 02:47 4 MG Acetaminophen 650 mg Q6HP PRN PO 05/22/24 15:00 05/29/24 21:55 650 MG Citalopram Hydrobromide 20 mg DAILY PO 05/23/24 10:00 06/11/24 10:10 20 MG Hydralazine HCl 10 mg Q6HP PRN IV 05/23/24 05:00 06/12/24 09:00 10 MG Prochlorperazine Edisylate 10 mg Q6HP PRN IV 05/23/24 12:00 06/04/24 12:42 10 MG Atorvastatin Calcium 20 mg DAILY PO 05/24/24 10:00 06/11/24 10:10 20 MG Nortriptyline HCl 50 mg HS PO 05/23/24 22:00 06/05/24 21:48 50 MG Tamsulosin HCl 0.4 mg QPM PO 05/23/24 18:00 06/11/24 18:05 0.4 MG Docusate Calcium 240 mg DAILY PO 06/03/24 12:33 06/03/24 19:44 240 MG Metoprolol Tartrate 10 mg BID PO 06/03/24 22:00 UNV Sennosides 8.6 mg DAILYP PO 06/03/24 12:33 06/11/24 10:10 8.6 MG Duloxetine HCl 60 mg DAILY PO 06/03/24 12:34 06/11/24 10:10 60 MG Metoprolol Tartrate 25 mg BID PO 06/03/24 22:00 Hold 06/03/24 22:43 25 MG Norepinephrine Bitartrate 250 ml @ 3.75 mls/hr Q24H IV 06/04/24 13:30 06/10/24 06:18 15 MLS/HR Metoprolol Tartrate 5 mg Q4HP PRN IV 06/05/24 11:15 Hold Pantoprazole Sodium 40 mg DAILY IV 06/06/24 10:00 06/12/24 09:01 40 MG Amino Acids 0 ml @ 0 mls/hr PER PHARMACY IV 06/07/24 13:30 Diagnostic Test (Pha) 1 strip Q6HR 06/07/24 18:00 06/12/24 17:38 1 STRIP Insulin Human Regular FOLLOW SLIDING SCALE Q6HR SC 06/07/24 18:00 06/11/24 17:43 2 UNITS Dextrose 50 ml UD IV 06/07/24 14:15 Morphine Sulfate 2 mg Q4HPRN PRN IV 06/08/24 10:45 Midazolam HCl 50 ml @ 3 mls/hr [id number] IV 06/08/24 15:45 06/10/24 12:07 4 MLS/HR Fentanyl Citrate 250 ml @ 10 mls/hr Q24H IV 06/08/24 15:45 06/11/24 23:51 12.5 MLS/HR Vasopressin 20 units/Sodium Chloride 100 ml @ 9 mls/hr Q11H7M IV 06/09/24 07:30 06/11/24 00:26 9 MLS/HR Phenylephrine HCl 250 ml @ 30 mls/hr Q8H20M IV 06/09/24 07:30 Acetaminophen 650 mg Q6HP PRN [place] 06/09/24 08:15 Lactated Ringer's 1,000 ml @ 100 mls/hr Q10H IV 06/09/24 10:00 06/12/24 14:15 100 MLS/HR Enoxaparin Sodium 100 mg Q12HR SC 06/09/24 22:00 06/11/24 10:09 100 MG Metoprolol Tartrate 5 mg BID IV 06/11/24 13:45 UNV Diltiazem HCl 10 mg Q8H IV 06/11/24 14:45 06/12/24 14:14 10 MG Ceftriaxone Sodium 50 ml @ 100 mls/hr DAILY@1000 IV 06/12/24 11:00 06/12/24 11:21 100 MLS/HR Labetalol HCl 10 mg Q2HPRN PRN IV 06/12/24 10:45 06/12/24 13:16 10 MG Fat Emulsion Intravenous 100 ml/Sodium Acetate 40 meq/Potassium Phosphate 44 meq/ Magnesium Sulfate 20 meq/ Multivitamins 10 ml/Chromium/ Copper/Manganese/ Zinc 1 ml/Insulin Human Regular 4 units/Amino Acids/ Dextrose 1,196.04 ml @ 50 mls/hr [id number] IV 06/12/24 20:00 06/13/24 19:59 06/12/24 20:43 50 MLS/HR objective General Appearance: Intubated sedated HEENT: EOMI, PERRLA, normal external inspect of ears, no icterus, no nasal drainage Neck: no carotid bruit, no jugular venous distention (JVD), no lymphadenopathy Chest: normal thorax Respiratory: clear to auscultation, normal air movement Cardiovascular: regular rate and rhythm, no diastolic murmur, no jugular venous distention (JVD), no rub, no systolic murmur Abdominal: soft, no hepatomegaly, no mass, no splenomegaly, dressing dry binder in place GIANNA drain Musculoskeletal: no joint tenderness, no swelling Extremities: normal pulses, no calf tenderness, no clubbing, no cyanosis, no edema Skin: no bruising, no jaundice, no rash Neurological: alert, No focal deficit laboratory and microbiology Laboratory Tests 06/12/24 04:08 Test 06/12/24 04:08 Range/Units Serum Glucose 123 H 74-106 mg/dL Problems(with codes): (1) INTESTINAL OBSTRUCT NOS (2) Hypotension (3) N&V (nausea and vomiting) (4) CHRONIC DIASTOLIC HRT FAILURE Prognosis Plan Continue NG tube to low intermittent suction IV Protonix 40 mg q.12 hours Continue IV Clinimix and nutritional support Once hemoglobin is stabilized then the patient will be considered for possible CPAP trial If hemoglobin drops below eight we will transfuse one more unit PRBC Dietary Evaluation Review Comments: 1. advance diet as tolerated per MD 2. Consider EN/TPN if Pt remains NPO for 48 hours Expected Outcomes/Goals: 1. Pt will consume >75% estimated needs within 2-3 days Plan discussed with: Other (ICU Nurse) SRINIVASAN ALVARES MD Jun 12, 2024 21:28
[2024-06-13] VITALS (100 sets, daily range): BP systolic 85–185; BP diastolic 42–103; PULSE 70–105; RESP 10–39; TEMP 99.1–100.4; O2SAT 95–100
[2024-06-13] MEDS: ACETAMINOPHEN 650 MG RECT SUPP PR PRN (01:13)
[2024-06-13 04:44] LABS: Basophils # (auto) 0 10 ^3/uL (0-0.2); Basophils % (auto) 0.1 % (0.0-2.0); Eosinophils # (auto) 0 10 ^3/uL (0-0.8); Eosinophils % (auto) 0.4 % (0.0-7.0); Hematocrit 27.1 % (41.0-53.0); Hemoglobin 8.9 g/dL (13.5-17.5); Lymphocytes # (auto) 0.7 10 ^3/uL (0.4-5.4); Lymphocytes % (auto) 9.5 % (10.0-50.0); Mean Corpuscular Hemoglobin 28.7 pg (28.0-32.0); Mean Corpuscular Hgb Conc. 32.8 g/dL (32.0-36.0); Mean Corpuscular Volume 87.4 fL (80.0-100.0); Monocytes # (auto) 0.4 10 ^3/uL (0-1.3); Monocytes % (auto) 5.1 % (0.0-12.0); Neutrophils # (auto) 6.1 10 ^3/uL (1.6-8.6); Neutrophils % (auto) 84.9 % (37.0-80.0); Nucleated Red Blood Cells % 0.2 %; Platelet Count (auto) 212 10^3/uL (140-450); Red Cell Distribution Width 17.7 % (11.8-14.3); White Blood Cell 7.2 10^3/uL (4.4-10.8)
[2024-06-13 04:59] LABS: Alanine Aminotransferase 13 U/L (7-40); Albumin 2.2 g/dL (3.2-4.8); Alkaline Phosphatase 161 U/L (46-116); Anion Gap 6 (5-15); Aspartate Aminotransferase 16 U/L (13-40); BUN/Creatinine Ratio 32.9 (10.0-20.0); Blood Urea Nitrogen 28 mg/dL (9-23); Calcium 8.6 mg/dL (8.7-10.4); Carbon Dioxide 24 mmol/L (20-31); Chloride 109 mmol/L (98-107); Glucose 129 mg/dL (74-106); Magnesium 1.7 mg/dL (1.6-2.6); Potassium 3.6 mmol/L (3.5-5.1); Sodium 139 mmol/L (136-145)
[2024-06-13 05:00] LABS: Bilirubin, Total 0.5 mg/dL (0.2-1.0); Phosphorus 3.2 mg/dL (2.4-5.1)
--- NOTE | 2024-06-13 07:58 | DVHPN2 ---
Progress Note - Dictate Date Seen: Jun 13, 2024 Medical Necessity Reason Pt with a Central, PICC or Fol: Yes The following are medically ne: Central Line, Grewal Catheter Reason for grewal catheter: Strict I&O vital signs Vital Sign Date Time Temp Pulse Resp B/P (MAP) Pulse Ox O2 Delivery O2 Flow Rate FiO2 06/13/24 07:53 101 170/63 06/13/24 07:00 99.7 21 98 211.5 06/13/24 06:04 30 06/13/24 06:00 Mechanical Ventilator+ 06/11/24 13:47 70.0 Total Intake and Output 06/12/24 06/12/24 06/13/24 15:00 23:00 07:00 Intake Total 919 ml 2335 ml 1230.0 ml Output Total 815 ml 1125 ml Balance 919 ml 1520 ml 105.0 ml medications Current Medications Medications Dose Ordered Sig/Jason Route Start Time Stop Time Status Last Admin Dose Admin Ondansetron HCl 4 mg Q4HP PRN IV 05/22/24 15:00 06/06/24 02:47 4 MG Acetaminophen 650 mg Q6HP PRN PO 05/22/24 15:00 05/29/24 21:55 650 MG Citalopram Hydrobromide 20 mg DAILY PO 05/23/24 10:00 06/11/24 10:10 20 MG Hydralazine HCl 10 mg Q6HP PRN IV 05/23/24 05:00 06/12/24 09:00 10 MG Prochlorperazine Edisylate 10 mg Q6HP PRN IV 05/23/24 12:00 06/04/24 12:42 10 MG Atorvastatin Calcium 20 mg DAILY PO 05/24/24 10:00 06/11/24 10:10 20 MG Nortriptyline HCl 50 mg HS PO 05/23/24 22:00 06/05/24 21:48 50 MG Tamsulosin HCl 0.4 mg QPM PO 05/23/24 18:00 06/11/24 18:05 0.4 MG Docusate Calcium 240 mg DAILY PO 06/03/24 12:33 06/03/24 19:44 240 MG Metoprolol Tartrate 10 mg BID PO 06/03/24 22:00 UNV Sennosides 8.6 mg DAILYP PO 06/03/24 12:33 06/11/24 10:10 8.6 MG Duloxetine HCl 60 mg DAILY PO 06/03/24 12:34 06/11/24 10:10 60 MG Metoprolol Tartrate 25 mg BID PO 06/03/24 22:00 Hold 06/03/24 22:43 25 MG Norepinephrine Bitartrate 250 ml @ 3.75 mls/hr Q24H IV 06/04/24 13:30 06/10/24 06:18 15 MLS/HR Metoprolol Tartrate 5 mg Q4HP PRN IV 06/05/24 11:15 Hold Pantoprazole Sodium 40 mg DAILY IV 06/06/24 10:00 06/12/24 09:01 40 MG Amino Acids 0 ml @ 0 mls/hr PER PHARMACY IV 06/07/24 13:30 Diagnostic Test (Pha) 1 strip Q6HR 06/07/24 18:00 06/13/24 05:35 1 STRIP Insulin Human Regular FOLLOW SLIDING SCALE Q6HR SC 06/07/24 18:00 06/11/24 17:43 2 UNITS Dextrose 50 ml UD IV 06/07/24 14:15 Morphine Sulfate 2 mg Q4HPRN PRN IV 06/08/24 10:45 Midazolam HCl 50 ml @ 3 mls/hr [id number] IV 06/08/24 15:45 06/10/24 12:07 4 MLS/HR Fentanyl Citrate 250 ml @ 10 mls/hr Q24H IV 06/08/24 15:45 06/11/24 23:51 12.5 MLS/HR Vasopressin 20 units/Sodium Chloride 100 ml @ 9 mls/hr Q11H7M IV 06/09/24 07:30 06/11/24 00:26 9 MLS/HR Phenylephrine HCl 250 ml @ 30 mls/hr Q8H20M IV 06/09/24 07:30 Acetaminophen 650 mg Q6HP PRN NC 06/09/24 08:15 06/13/24 01:13 650 MG Lactated Ringer's 1,000 ml @ 100 mls/hr Q10H IV 06/09/24 10:00 06/13/24 00:43 100 MLS/HR Enoxaparin Sodium 100 mg Q12HR SC 06/09/24 22:00 06/12/24 21:00 100 MG Metoprolol Tartrate 5 mg BID IV 06/11/24 13:45 UNV Diltiazem HCl 10 mg Q8H IV 06/11/24 14:45 06/13/24 05:39 10 MG Ceftriaxone Sodium 50 ml @ 100 mls/hr DAILY@1000 IV 06/12/24 11:00 06/12/24 11:21 100 MLS/HR Labetalol HCl 10 mg Q2HPRN PRN IV 06/12/24 10:45 06/13/24 07:53 10 MG Fat Emulsion Intravenous 100 ml/Sodium Acetate 40 meq/Potassium Phosphate 44 meq/ Magnesium Sulfate 20 meq/ Multivitamins 10 ml/Chromium/ Copper/Manganese/ Zinc 1 ml/Insulin Human Regular 4 units/Amino Acids/ Dextrose 1,196.04 ml @ 50 mls/hr [id number] IV 06/12/24 20:00 06/13/24 19:59 06/12/24 20:43 50 MLS/HR laboratory and microbiology Laboratory Tests 06/13/24 04:21 Test 06/13/24 04:21 Range/Units Serum Glucose 129 H 74-106 mg/dL Assessment/Plan s/p Laparotomy (found to have contained bowel perforation, abscess) Has Bowel movements transferred to ICU On pressure support. On IV BB/CCB Had mechanical fall and found to have hip fracture. S/p ORIF Patient is a 74-year-old gentleman who presented on May 22, 2024 for epigastric pain. It seems that he ate sandwich in this was followed by repeated abdominal pain and vomiting. He has been admitted with small-bowel obstruction. He also was found to have gallstones and gastric outlet obstruction. He has been seen by surgery and GI. He has been having NG tube. Patient does have history of paroxysmal AFib and is on Eliquis as outpatient. On 05/24 2024, the patient was found to have tachyarrhythmia and cardiology was involved for its evaluation and management. Telemetry revealed tachyarrhythmia in the rate of 150s. Tele was in favor of SVT. Patient was attached to the monitor and 6 mg of adenosine was given which resulted in breaking of the tachyarrhythmia inpatient been back to sinus rhythm. As per patient, he usually follows with Cardiology in [facility]. As per patient, he did have angiogram (cardiac catheterization some years ago and was told that it was normal findings). Lying flat in bed and not in acute distress. No JVD. Mucosa is pink and wet. No carotid bruit. No goiter. Lungs are clear to auscultation. At the time of evaluation the patient started to be in tachyarrhythmia and in palpitation. Later, heart rate decreased. No thrill/gallop. Abdomen is soft. Extremities do not reveal edema Past medical history includes atrial fibrillation (on Eliquis as outpatient), DJD, heart failure (diastolic), COPD, hypertension, hyperlipidemia, reported diabetes mellitus, obesity, old history of tonsillectomy and gastric bypass surgery. He is known to have kidney stones. Echocardiogram of January 2020 revealed ejection fraction of 60% and biatrial enlargement Troponin (high sensitive): 19 - 11 TSH: 3.28 CT of the abdomen and pelvis revealed: IMPRESSION: 1. Cholelithiasis with the gallbladder distended. 2. Postop changes to the stomach with a fluid-filled distended stomach and dilated fluid-filled small bowel findings suggest small bowel obstruction. 3. Multiple bilateral nonobstructing renal calculi. 4. Prosthesis in the right hip. Chest x-ray revealed: Frontal chest radiograph demonstrates no acute osseous or superficial soft tissue abnormalities. Enteric tube visualized overlying the plane of the stomach. The trachea is midline. The cardiac silhouette and mediastinum are within normal limits. No pneumothorax, pleural effusions, or consolidations. Partially visualized gaseous distended loops of bowel. Repeat chest xry revealed: IMPRESSION: 1. Stable appearance of the support lines and tubes. 2. Bibasilar airspace disease similar to prior study. HIDA scan reported: IMPRESSION: 1. Findings may reflect chronic cholecystitis, cannot exclude acute cholecystitis due to lack of 30-60 minute images. KUB revealed: IMPRESSION: Findings concerning for small bowel obstruction versus ileus. Repeat KUB revealed: FINDINGS/IMPRESSION: Dilated loops of small bowel with gas and stool visualized in the colon. Findings appear improved compared to prior exam. Repeat KUB revealed: IMPRESSION: 1. There are air-filled dilated small bowel loops. Air and stool is seen within the colon. The findings appear mildly improved comparison to the prior study. The findings fairly stable and May relate to an ileus.. Clinical correlation and continued follow-up is recommended Repeat KUB revealed: Impression: 1. Nonobstructive bowel gas pattern. Repeat KUB revealed: Findings/ Impression: Postsurgical changes of the abdomen with skin lavern noted over the right hemiabdomen. Enteric tube is noted terminating within the stomach. There are gas-filled mildly distended small bowel loops which may be due to ileus with partial bowel obstruction not excluded. There is contrast noted within the nondistended large bowel. Bibasilar atelectasis. No acute bony abnormalities. Right total hip replacement with partially visualized intramedullary speedy and dynamic screw fixation of the left proximal femur Gallbladder ultrasound reported: FINDINGS: Examination is limited. The gallbladder appears distended. The gallbladder wall measures 2 mm in thickness, within normal limits. Possible sludge in the gallbladder. Negative reported sonographic valladares's sign. The common bile duct measures 6 mm in diameter, within normal limits. The liver measures at the upper limits of normal in size, at 16.4 cm in craniocaudal dimension. Heterogeneous echotexture of the liver. The pancreas is obscured by bowel gas. The right kidney measures 9.6 cm. There is no hydronephrosis. Limited evaluation of the right kidney. Echogenic focus, possible renal calculus at the midpole measuring 1.4 cm. The patient does have renal calculi on recent CT exam. IMPRESSION: 1. Limited examination as described above. Possible gallbladder sludge and distended gallbladder. No sonographic evidence of acute cholecystitis. 2. Additional nonacute findings as described above. HIDA scan revealed: Impression: 1. Unremarkable hepatobiliary study without evidence of acute cholecystitis. Left Hip Xry: FINDINGS/IMPRESSION: There is a displaced and impacted left intertrochanteric fracture. Patient is status post right hip arthroplasty. EKG revealed SVT Tele revealed SVT which later transitioned into sinus rhythm Echocardiogram revealed: Technically limited study secondary to poor acoustic windows. Left ventricle: Mild concentric left ventricular hypertrophy was seen. LVEF was 55-60%. Right ventricle was normal size with normal systolic function. Both atria were mildly dilated. Aortic valve was not well visualized. Aortic sclerosis with no stenosis was observed. [id number] aortic insufficiency was observed. Mild mitral/tricuspid regurgitation was seen. Tricuspid valve was not well visualized. Right ventricular systolic pressure was assessed around 25 mm Hg. There was no pericardial effusion. Ascending aorta was 4.5 cm. Patient is a 74-year-old gentleman who presented with abdominal pain and is being managed for small bowel obstruction. He does have history of paroxysmal AFib. Has not been taking his medications regularly and this was followed with tachyarrhythmia. Tachyarrhythmia was in favor of SVT. SVT responded to adenosine Small-bowel obstruction Obesity History of gastric bypass Paroxysmal AFib SVT Status post adenosine management Diabetes mellitus Obesity, morbid Gallstone Renal stone s/p laparotomy bowel perforation Cardiac suggestion for management: For now, manage in ICU Follow-up electrolytes and kidney function tests and correct abnormalities Keep potassium above 4 and magnesium above 2 Continue Cardizem Fluid resuscitation Surgery and GI follow up Long-term continuation of anticoagulation is suggested (for now patient on Lovenox). .. Further evaluation and management depends on the above and clinical course A total of 75 minutes was spent reviewing the patient record, examining the patient, making a diagnostic and therapeutic plan, discussing this plan with medical personnel, following up on diagnostic studies and following the patient for clinical stability excluding any and all procedures. At least 50% of this time was spent in direct, [id number] contact. Thank you for allowing me to participate in this patient's care. Further recommendations will depend on patient's clinical course. Please do not hesitate to contact me if you have any questions or concerns. This medical document was created using electronic medical record system with [employer] computerized dictation system. Although this document has been carefully reviewed, there may still be some phonetic and typographical errors. These areas are purely typographical due to the imperfection of the software programs, and do not reflect any compromise in the patient's medical care. Dietary Evaluation Review Comments: 1. advance diet as tolerated per MD 2. Consider EN/TPN if Pt remains NPO for 48 hours Expected Outcomes/Goals: 1. Pt will consume >75% estimated needs within 2-3 days Plan discussed with: Other (nurse) BROOKS PRITCHARD MD Jun 13, 2024 07:58
[2024-06-13 08:56] LABS: Base Excess -1.2 mmol/L (-2.0-3.0)
--- NOTE | 2024-06-13 11:57 | DVHPN2 ---
Progress Note Date Seen: Jun 13, 2024 Medical Necessity Reason Pt with a Central, PICC or Fol: Yes The following are medically ne: Central Line, Grewal Catheter Reason for grewal catheter: Strict I&O Subjective Review of Systems: Not Done (Unable to obtain due to mechanical ventilator) Objective vital signs Vital Sign Date Time Temp Pulse Resp B/P (MAP) Pulse Ox O2 Delivery O2 Flow Rate FiO2 06/13/24 11:36 102 173/69 06/13/24 09:24 21 100 30 06/13/24 08:30 99.3 210.7 06/13/24 08:00 Mechanical Ventilator+ 06/11/24 13:47 70.0 Total Intake and Output 06/12/24 06/12/24 06/13/24 15:00 23:00 07:00 Intake Total 919 ml 2335 ml 1230.0 ml Output Total 815 ml 1125 ml Balance 919 ml 1520 ml 105.0 ml medications Current Medications Medications Dose Ordered Sig/Jason Route Start Time Stop Time Status Last Admin Dose Admin Ondansetron HCl 4 mg Q4HP PRN IV 05/22/24 15:00 06/06/24 02:47 4 MG Acetaminophen 650 mg Q6HP PRN PO 05/22/24 15:00 05/29/24 21:55 650 MG Citalopram Hydrobromide 20 mg DAILY PO 05/23/24 10:00 06/11/24 10:10 20 MG Hydralazine HCl 10 mg Q6HP PRN IV 05/23/24 05:00 06/12/24 09:00 10 MG Prochlorperazine Edisylate 10 mg Q6HP PRN IV 05/23/24 12:00 06/04/24 12:42 10 MG Atorvastatin Calcium 20 mg DAILY PO 05/24/24 10:00 06/11/24 10:10 20 MG Nortriptyline HCl 50 mg HS PO 05/23/24 22:00 06/05/24 21:48 50 MG Tamsulosin HCl 0.4 mg QPM PO 05/23/24 18:00 06/11/24 18:05 0.4 MG Docusate Calcium 240 mg DAILY PO 06/03/24 12:33 06/03/24 19:44 240 MG Metoprolol Tartrate 10 mg BID PO 06/03/24 22:00 UNV Sennosides 8.6 mg DAILYP PO 06/03/24 12:33 06/11/24 10:10 8.6 MG Duloxetine HCl 60 mg DAILY PO 06/03/24 12:34 06/11/24 10:10 60 MG Metoprolol Tartrate 25 mg BID PO 06/03/24 22:00 Hold 06/03/24 22:43 25 MG Norepinephrine Bitartrate 250 ml @ 3.75 mls/hr Q24H IV 06/04/24 13:30 06/10/24 06:18 15 MLS/HR Metoprolol Tartrate 5 mg Q4HP PRN IV 06/05/24 11:15 Hold Pantoprazole Sodium 40 mg DAILY IV 06/06/24 10:00 06/13/24 09:59 40 MG Amino Acids 0 ml @ 0 mls/hr PER PHARMACY IV 06/07/24 13:30 Diagnostic Test (Pha) 1 strip Q6HR 06/07/24 18:00 06/13/24 05:35 1 STRIP Insulin Human Regular FOLLOW SLIDING SCALE Q6HR SC 06/07/24 18:00 06/13/24 11:40 2 UNITS Dextrose 50 ml UD IV 06/07/24 14:15 Morphine Sulfate 2 mg Q4HPRN PRN IV 06/08/24 10:45 Midazolam HCl 50 ml @ 3 mls/hr [id number] IV 06/08/24 15:45 06/10/24 12:07 4 MLS/HR Fentanyl Citrate 250 ml @ 10 mls/hr Q24H IV 06/08/24 15:45 06/11/24 23:51 12.5 MLS/HR Vasopressin 20 units/Sodium Chloride 100 ml @ 9 mls/hr Q11H7M IV 06/09/24 07:30 06/11/24 00:26 9 MLS/HR Phenylephrine HCl 250 ml @ 30 mls/hr Q8H20M IV 06/09/24 07:30 Acetaminophen 650 mg Q6HP PRN GA 06/09/24 08:15 06/13/24 01:13 650 MG Lactated Ringer's 1,000 ml @ 100 mls/hr Q10H IV 06/09/24 10:00 06/13/24 00:43 100 MLS/HR Enoxaparin Sodium 100 mg Q12HR SC 06/09/24 22:00 06/12/24 21:00 100 MG Metoprolol Tartrate 5 mg BID IV 06/11/24 13:45 UNV Diltiazem HCl 10 mg Q8H IV 06/11/24 14:45 06/13/24 05:39 10 MG Ceftriaxone Sodium 50 ml @ 100 mls/hr DAILY@1000 IV 06/12/24 11:00 06/13/24 10:00 100 MLS/HR Labetalol HCl 10 mg Q2HPRN PRN IV 06/12/24 10:45 06/13/24 11:36 10 MG Fat Emulsion Intravenous 100 ml/Sodium Acetate 40 meq/Potassium Phosphate 44 meq/ Magnesium Sulfate 20 meq/ Multivitamins 10 ml/Chromium/ Copper/Manganese/ Zinc 1 ml/Insulin Human Regular 4 units/Amino Acids/ Dextrose 1,196.04 ml @ 50 mls/hr [id number] IV 06/12/24 20:00 06/13/24 19:59 06/12/24 20:43 50 MLS/HR Examination: GENERAL:Normal, LUNGS:Abnormal (Diminished on vent), CVS:Normal, ABDOMEN:Normal, SKIN:Normal, NEURO:Normal laboratory and microbiology Laboratory Tests 06/13/24 04:21 Test 06/13/24 04:21 Range/Units Serum Glucose 129 H 74-106 mg/dL Microbiology Date/Time Source Procedure Growth Status 06/09/24 18:42 Lung Pending Resulted 06/09/24 18:42 Lung Pending Resulted 06/09/24 18:42 Lung Pending Resulted 06/09/24 18:42 Lung Pending Resulted 06/09/24 18:42 Lung - Final See Separate Report... Resulted 06/09/24 18:42 Bronchial Washings Gram Stain - Final Complete 06/09/24 18:42 Respiratory Culture - Final Escherichia coli Complete Problem List/Assessment/Plan Problem List/Assessment/Plan 1. Small bowel obstruction Monitor, surgical consult, GI consult, NPO 2. HLD Monitor 3. Persistent atrial fibrillation Monitor, full dose Lovenox 4. Obesity Monitor 5. Hx gastric bypass Monitor 6. Benign essential HTN Monitor, antihypertensives 7. Gallstones Monitor, surgical consult, GI consult, NPO, HIDA scan 8. Sepsis Monitor 9. Septic Shock Monitor 10. Acute renal failure Monitor, nephrology consult Assessment/Plan Subjective Patient remains intubated and on the ventilator. Objective Patient is currently off sedation and we will have CPAP trial today for plans of extubation. Patient is s/p surgery for intra-abdominal abscess, lysis of adhesions, small bowel resection, and revision of gastric bypass anastomosis Hemoglobin is 8.9 . Blood pressure has improved and has been ranging in the 130 systolic. Placed order for labetalol IV q.2h. Plan continue current antibiotic recommendations. Replace electrolytes as needed. Repeat labs in the a.m., we will resume diet when cleared by Dr. Jeremiah Lorenz Ventilator management per pulmonary, monitor BP, continue CPAP trial and extubate when ready Plan discussed with: Patient My Orders My Orders Orders - KONRAD ROCKWELL Procedure Category Date Status Time Kub Abdomen Single XY 06/12/24 Resulted View 16:04 Dietary Evaluation Review Comments: 1. advance diet as tolerated per MD 2. Consider EN/TPN if Pt remains NPO for 48 hours Expected Outcomes/Goals: 1. Pt will consume >75% estimated needs within 2-3 days Date of Service: Jun 13, 2024 Billing Provider: RICA HELLER MD Common Visit Codes: [id number] INP/OBS CARE (MOD) KONRAD ROCKWELL Jun 13, 2024 11:56
--- NOTE | 2024-06-13 12:06 | DVHPN2 ---
Progress Note - Dictate Date Seen: Jun 13, 2024 Medical Necessity Reason Pt with a Central, PICC or Fol: Yes The following are medically ne: Central Line, Grewal Catheter Reason for grewal catheter: Strict I&O Subjective No new complaints Patient is undergoing CPAP trial He had two large bowel movements today Hemoglobin at 8.9 No active GI bleeding was reported NG tube output is bilious PROCEDURES: Exploratory laparotomy with drainage of intra-abdominal abscess, lysis of adhesions, and small bowel resection and anastomosis with revision of the distal gastric bypass anastomosis. vital signs Vital Sign Date Time Temp Pulse Resp B/P (MAP) Pulse Ox O2 Delivery O2 Flow Rate FiO2 06/13/24 11:38 84 35 160/70 (100) 100 30 06/13/24 08:30 99.3 210.7 06/13/24 08:00 Mechanical Ventilator+ 06/11/24 13:47 70.0 Total Intake and Output 06/12/24 06/12/24 06/13/24 15:00 23:00 07:00 Intake Total 919 ml 2335 ml 1230.0 ml Output Total 815 ml 1125 ml Balance 919 ml 1520 ml 105.0 ml medications Current Medications Medications Dose Ordered Sig/Jason Route Start Time Stop Time Status Last Admin Dose Admin Ondansetron HCl 4 mg Q4HP PRN IV 05/22/24 15:00 06/06/24 02:47 4 MG Acetaminophen 650 mg Q6HP PRN PO 05/22/24 15:00 05/29/24 21:55 650 MG Citalopram Hydrobromide 20 mg DAILY PO 05/23/24 10:00 06/11/24 10:10 20 MG Hydralazine HCl 10 mg Q6HP PRN IV 05/23/24 05:00 06/12/24 09:00 10 MG Prochlorperazine Edisylate 10 mg Q6HP PRN IV 05/23/24 12:00 06/04/24 12:42 10 MG Atorvastatin Calcium 20 mg DAILY PO 05/24/24 10:00 06/11/24 10:10 20 MG Nortriptyline HCl 50 mg HS PO 05/23/24 22:00 06/05/24 21:48 50 MG Tamsulosin HCl 0.4 mg QPM PO 05/23/24 18:00 06/11/24 18:05 0.4 MG Docusate Calcium 240 mg DAILY PO 06/03/24 12:33 06/03/24 19:44 240 MG Metoprolol Tartrate 10 mg BID PO 06/03/24 22:00 UNV Sennosides 8.6 mg DAILYP PO 06/03/24 12:33 06/11/24 10:10 8.6 MG Duloxetine HCl 60 mg DAILY PO 06/03/24 12:34 06/11/24 10:10 60 MG Metoprolol Tartrate 25 mg BID PO 06/03/24 22:00 Hold 06/03/24 22:43 25 MG Norepinephrine Bitartrate 250 ml @ 3.75 mls/hr Q24H IV 06/04/24 13:30 06/10/24 06:18 15 MLS/HR Metoprolol Tartrate 5 mg Q4HP PRN IV 06/05/24 11:15 Hold Pantoprazole Sodium 40 mg DAILY IV 06/06/24 10:00 06/13/24 09:59 40 MG Amino Acids 0 ml @ 0 mls/hr PER PHARMACY IV 06/07/24 13:30 Diagnostic Test (Pha) 1 strip Q6HR 06/07/24 18:00 06/13/24 05:35 1 STRIP Insulin Human Regular FOLLOW SLIDING SCALE Q6HR SC 06/07/24 18:00 06/13/24 11:40 2 UNITS Dextrose 50 ml UD IV 06/07/24 14:15 Morphine Sulfate 2 mg Q4HPRN PRN IV 06/08/24 10:45 Midazolam HCl 50 ml @ 3 mls/hr [id number] IV 06/08/24 15:45 06/10/24 12:07 4 MLS/HR Fentanyl Citrate 250 ml @ 10 mls/hr Q24H IV 06/08/24 15:45 06/11/24 23:51 12.5 MLS/HR Vasopressin 20 units/Sodium Chloride 100 ml @ 9 mls/hr Q11H7M IV 06/09/24 07:30 06/11/24 00:26 9 MLS/HR Phenylephrine HCl 250 ml @ 30 mls/hr Q8H20M IV 06/09/24 07:30 Acetaminophen 650 mg Q6HP PRN NM 06/09/24 08:15 06/13/24 01:13 650 MG Lactated Ringer's 1,000 ml @ 100 mls/hr Q10H IV 06/09/24 10:00 06/13/24 00:43 100 MLS/HR Enoxaparin Sodium 100 mg Q12HR SC 06/09/24 22:00 06/12/24 21:00 100 MG Metoprolol Tartrate 5 mg BID IV 06/11/24 13:45 UNV Diltiazem HCl 10 mg Q8H IV 06/11/24 14:45 06/13/24 05:39 10 MG Ceftriaxone Sodium 50 ml @ 100 mls/hr DAILY@1000 IV 06/12/24 11:00 06/13/24 10:00 100 MLS/HR Labetalol HCl 10 mg Q2HPRN PRN IV 06/12/24 10:45 06/13/24 11:36 10 MG Fat Emulsion Intravenous 100 ml/Sodium Acetate 40 meq/Potassium Phosphate 44 meq/ Magnesium Sulfate 20 meq/ Multivitamins 10 ml/Chromium/ Copper/Manganese/ Zinc 1 ml/Insulin Human Regular 4 units/Amino Acids/ Dextrose 1,196.04 ml @ 50 mls/hr [id number] IV 06/12/24 20:00 06/13/24 19:59 06/12/24 20:43 50 MLS/HR objective General Appearance: Intubated off sedation starting to wake up on CPAP trial HEENT: EOMI, PERRLA, normal external inspect of ears, no icterus, no nasal drainage Neck: no carotid bruit, no jugular venous distention (JVD), no lymphadenopathy Chest: normal thorax Respiratory: clear to auscultation, normal air movement Cardiovascular: regular rate and rhythm, no diastolic murmur, no jugular venous distention (JVD), no rub, no systolic murmur Abdominal: soft, no hepatomegaly, no mass, no splenomegaly, dressing dry binder in place GIANNA drain Musculoskeletal: no joint tenderness, no swelling Extremities: normal pulses, no calf tenderness, no clubbing, no cyanosis, no edema Skin: no bruising, no jaundice, no rash Neurological: alert, No focal deficit laboratory and microbiology Laboratory Tests 06/13/24 04:21 Test 06/13/24 04:21 Range/Units Serum Glucose 129 H 74-106 mg/dL Problems(with codes): (1) INTESTINAL OBSTRUCT NOS (2) N&V (nausea and vomiting) Prognosis Plan Continue supportive care Clamp NG-tube Continue IV Clinimix Continue IV antibiotics Once the patient is extubated then we will do swallow eval and advance diet once cleared by surgical consult Supportive care Dietary Evaluation Review Comments: 1. advance diet as tolerated per MD 2. Consider EN/TPN if Pt remains NPO for 48 hours Expected Outcomes/Goals: 1. Pt will consume >75% estimated needs within 2-3 days Plan discussed with: Other (ICU Nurse) SRINIVASAN ALVARES MD Jun 13, 2024 12:06
--- NOTE | 2024-06-13 13:00 | DVHPN2 ---
Progress Note - Dictate Date Seen: Jun 13, 2024 Medical Necessity Reason Pt with a Central, PICC or Fol: Yes The following are medically ne: Central Line, Grewal Catheter Reason for grewal catheter: Strict I&O vital signs Vital Sign Date Time Temp Pulse Resp B/P (MAP) Pulse Ox O2 Delivery O2 Flow Rate FiO2 06/13/24 12:55 91 165/67 06/13/24 12:00 99.1 19 100 99.1 06/13/24 11:38 30 06/13/24 08:00 Mechanical Ventilator+ 06/11/24 13:47 70.0 Total Intake and Output 06/12/24 06/12/24 06/13/24 14:59 22:59 06:59 Intake Total 954 ml 2328 ml 1235.0 ml Output Total 815 ml 1125 ml Balance 954 ml 1513 ml 110.0 ml medications Current Medications Medications Dose Ordered Sig/Jason Route Start Time Stop Time Status Last Admin Dose Admin Ondansetron HCl 4 mg Q4HP PRN IV 05/22/24 15:00 06/06/24 02:47 4 MG Acetaminophen 650 mg Q6HP PRN PO 05/22/24 15:00 05/29/24 21:55 650 MG Citalopram Hydrobromide 20 mg DAILY PO 05/23/24 10:00 06/11/24 10:10 20 MG Hydralazine HCl 10 mg Q6HP PRN IV 05/23/24 05:00 06/12/24 09:00 10 MG Prochlorperazine Edisylate 10 mg Q6HP PRN IV 05/23/24 12:00 06/04/24 12:42 10 MG Atorvastatin Calcium 20 mg DAILY PO 05/24/24 10:00 06/11/24 10:10 20 MG Nortriptyline HCl 50 mg HS PO 05/23/24 22:00 06/05/24 21:48 50 MG Tamsulosin HCl 0.4 mg QPM PO 05/23/24 18:00 06/11/24 18:05 0.4 MG Docusate Calcium 240 mg DAILY PO 06/03/24 12:33 06/03/24 19:44 240 MG Metoprolol Tartrate 10 mg BID PO 06/03/24 22:00 UNV Sennosides 8.6 mg DAILYP PO 06/03/24 12:33 06/11/24 10:10 8.6 MG Duloxetine HCl 60 mg DAILY PO 06/03/24 12:34 06/11/24 10:10 60 MG Metoprolol Tartrate 25 mg BID PO 06/03/24 22:00 Hold 06/03/24 22:43 25 MG Norepinephrine Bitartrate 250 ml @ 3.75 mls/hr Q24H IV 06/04/24 13:30 06/10/24 06:18 15 MLS/HR Metoprolol Tartrate 5 mg Q4HP PRN IV 06/05/24 11:15 Hold Pantoprazole Sodium 40 mg DAILY IV 06/06/24 10:00 06/13/24 09:59 40 MG Amino Acids 0 ml @ 0 mls/hr PER PHARMACY IV 06/07/24 13:30 Diagnostic Test (Pha) 1 strip Q6HR 06/07/24 18:00 06/13/24 12:00 1 STRIP Insulin Human Regular FOLLOW SLIDING SCALE Q6HR SC 06/07/24 18:00 06/13/24 11:40 2 UNITS Dextrose 50 ml UD IV 06/07/24 14:15 Morphine Sulfate 2 mg Q4HPRN PRN IV 06/08/24 10:45 Midazolam HCl 50 ml @ 3 mls/hr [id number] IV 06/08/24 15:45 06/10/24 12:07 4 MLS/HR Fentanyl Citrate 250 ml @ 10 mls/hr Q24H IV 06/08/24 15:45 06/11/24 23:51 12.5 MLS/HR Vasopressin 20 units/Sodium Chloride 100 ml @ 9 mls/hr Q11H7M IV 06/09/24 07:30 06/11/24 00:26 9 MLS/HR Phenylephrine HCl 250 ml @ 30 mls/hr Q8H20M IV 06/09/24 07:30 Acetaminophen 650 mg Q6HP PRN [place] 06/09/24 08:15 06/13/24 01:13 650 MG Lactated Ringer's 1,000 ml @ 100 mls/hr Q10H IV 06/09/24 10:00 06/13/24 00:43 100 MLS/HR Enoxaparin Sodium 100 mg Q12HR SC 06/09/24 22:00 06/13/24 12:55 100 MG Metoprolol Tartrate 5 mg BID IV 06/11/24 13:45 UNV Diltiazem HCl 10 mg Q8H IV 06/11/24 14:45 06/13/24 12:55 10 MG Ceftriaxone Sodium 50 ml @ 100 mls/hr DAILY@1000 IV 06/12/24 11:00 06/13/24 10:00 100 MLS/HR Labetalol HCl 10 mg Q2HPRN PRN IV 06/12/24 10:45 06/13/24 11:36 10 MG Fat Emulsion Intravenous 100 ml/Sodium Acetate 40 meq/Potassium Phosphate 44 meq/ Magnesium Sulfate 20 meq/ Multivitamins 10 ml/Chromium/ Copper/Manganese/ Zinc 1 ml/Insulin Human Regular 4 units/Amino Acids/ Dextrose 1,196.04 ml @ 50 mls/hr [id number] IV 06/12/24 20:00 06/13/24 19:59 06/12/24 20:43 50 MLS/HR Fat Emulsion Intravenous 100 ml/Potassium Acetate 40 meq/ Potassium Phosphate 44 meq/ Magnesium Sulfate 24 meq/ Multivitamins 10 ml/Chromium/ Copper/Manganese/ Zinc 1 ml/Insulin Human Regular 4 units/Amino Acids/ Dextrose 1,197.04 ml @ 50 mls/hr [id number] IV 06/13/24 20:00 06/14/24 19:59 laboratory and microbiology Laboratory Tests 06/13/24 04:21 Test 06/13/24 04:21 Range/Units Serum Glucose 129 H 74-106 mg/dL Assessment/Plan SYBIL secondary to hemodynamic mediated, FeNa < 1% (Cr 1.0 on admission 05/22/24) BPH with LUTS Septic shock Bilateral nonobstructing nephrolithiasis s/p ORIF left hip 05/27 Hypotension Chronic diastolic HF A fib Small-bowel obstruction /abscess/ perforation s/p SMALL BOWEL RESECTION WITH ANASTOMOSIS OF EFFERENT LIMB REVISION OF AFFERENT LIMB ANASTOMOSIS DISTAL TO THE EFFERENT LIMB NEW ANASTOMOSIS h/o gastric bypass Hypokalemia Hypomagnesemia vdrf post op anemia SYBIL resolving Continue IV fluid Avoid hypotension stable from renal standpoint will sign off case Dietary Evaluation Review Comments: 1. advance diet as tolerated per MD 2. Consider EN/TPN if Pt remains NPO for 48 hours Expected Outcomes/Goals: 1. Pt will consume >75% estimated needs within 2-3 days Plan discussed with: Other OLADELE,LUIS M MD Jun 13, 2024 13:00
--- NOTE | 2024-06-13 13:55 | DVHPN2 ---
Progress Note - Dictate Date Seen: Jun 13, 2024 Medical Necessity Reason Pt with a Central, PICC or Fol: Yes The following are medically ne: Central Line, Grewal Catheter Reason for grewal catheter: Strict I&O Subjective Patient seen and examined at bedside. Sedated, intubated on mechanical ventilator. Overnight events reviewed. vital signs Vital Sign Date Time Temp Pulse Resp B/P (MAP) Pulse Ox O2 Delivery O2 Flow Rate FiO2 06/13/24 12:55 91 165/67 06/13/24 12:00 99.1 19 100 99.1 06/13/24 11:38 30 06/13/24 08:00 Mechanical Ventilator+ 06/11/24 13:47 70.0 Total Intake and Output 06/12/24 06/12/24 06/13/24 15:00 23:00 07:00 Intake Total 919 ml 2335 ml 1380.0 ml Output Total 815 ml 1125 ml Balance 919 ml 1520 ml 255.0 ml medications Current Medications Medications Dose Ordered Sig/Jason Route Start Time Stop Time Status Last Admin Dose Admin Ondansetron HCl 4 mg Q4HP PRN IV 05/22/24 15:00 06/06/24 02:47 4 MG Acetaminophen 650 mg Q6HP PRN PO 05/22/24 15:00 05/29/24 21:55 650 MG Citalopram Hydrobromide 20 mg DAILY PO 05/23/24 10:00 06/11/24 10:10 20 MG Hydralazine HCl 10 mg Q6HP PRN IV 05/23/24 05:00 06/12/24 09:00 10 MG Prochlorperazine Edisylate 10 mg Q6HP PRN IV 05/23/24 12:00 06/04/24 12:42 10 MG Atorvastatin Calcium 20 mg DAILY PO 05/24/24 10:00 06/11/24 10:10 20 MG Nortriptyline HCl 50 mg HS PO 05/23/24 22:00 06/05/24 21:48 50 MG Tamsulosin HCl 0.4 mg QPM PO 05/23/24 18:00 06/11/24 18:05 0.4 MG Docusate Calcium 240 mg DAILY PO 06/03/24 12:33 06/03/24 19:44 240 MG Metoprolol Tartrate 10 mg BID PO 06/03/24 22:00 UNV Sennosides 8.6 mg DAILYP PO 06/03/24 12:33 06/11/24 10:10 8.6 MG Duloxetine HCl 60 mg DAILY PO 06/03/24 12:34 06/11/24 10:10 60 MG Metoprolol Tartrate 25 mg BID PO 06/03/24 22:00 Hold 06/03/24 22:43 25 MG Norepinephrine Bitartrate 250 ml @ 3.75 mls/hr Q24H IV 06/04/24 13:30 06/10/24 06:18 15 MLS/HR Metoprolol Tartrate 5 mg Q4HP PRN IV 06/05/24 11:15 Hold Pantoprazole Sodium 40 mg DAILY IV 06/06/24 10:00 06/13/24 09:59 40 MG Amino Acids 0 ml @ 0 mls/hr PER PHARMACY IV 06/07/24 13:30 Diagnostic Test (Pha) 1 strip Q6HR 06/07/24 18:00 06/13/24 12:00 1 STRIP Insulin Human Regular FOLLOW SLIDING SCALE Q6HR SC 06/07/24 18:00 06/13/24 11:40 2 UNITS Dextrose 50 ml UD IV 06/07/24 14:15 Morphine Sulfate 2 mg Q4HPRN PRN IV 06/08/24 10:45 Midazolam HCl 50 ml @ 3 mls/hr [id number] IV 06/08/24 15:45 06/10/24 12:07 4 MLS/HR Fentanyl Citrate 250 ml @ 10 mls/hr Q24H IV 06/08/24 15:45 06/11/24 23:51 12.5 MLS/HR Vasopressin 20 units/Sodium Chloride 100 ml @ 9 mls/hr Q11H7M IV 06/09/24 07:30 06/11/24 00:26 9 MLS/HR Phenylephrine HCl 250 ml @ 30 mls/hr Q8H20M IV 06/09/24 07:30 Acetaminophen 650 mg Q6HP PRN [place] 06/09/24 08:15 06/13/24 01:13 650 MG Lactated Ringer's 1,000 ml @ 100 mls/hr Q10H IV 06/09/24 10:00 06/13/24 00:43 100 MLS/HR Enoxaparin Sodium 100 mg Q12HR SC 06/09/24 22:00 06/13/24 12:55 100 MG Metoprolol Tartrate 5 mg BID IV 06/11/24 13:45 UNV Diltiazem HCl 10 mg Q8H IV 06/11/24 14:45 06/13/24 12:55 10 MG Ceftriaxone Sodium 50 ml @ 100 mls/hr DAILY@1000 IV 06/12/24 11:00 06/13/24 10:00 100 MLS/HR Labetalol HCl 10 mg Q2HPRN PRN IV 06/12/24 10:45 06/13/24 11:36 10 MG Fat Emulsion Intravenous 100 ml/Sodium Acetate 40 meq/Potassium Phosphate 44 meq/ Magnesium Sulfate 20 meq/ Multivitamins 10 ml/Chromium/ Copper/Manganese/ Zinc 1 ml/Insulin Human Regular 4 units/Amino Acids/ Dextrose 1,196.04 ml @ 50 mls/hr [id number] IV 06/12/24 20:00 06/13/24 19:59 06/12/24 20:43 50 MLS/HR Fat Emulsion Intravenous 100 ml/Potassium Acetate 40 meq/ Potassium Phosphate 44 meq/ Magnesium Sulfate 24 meq/ Multivitamins 10 ml/Chromium/ Copper/Manganese/ Zinc 1 ml/Insulin Human Regular 4 units/Amino Acids/ Dextrose 1,197.04 ml @ 50 mls/hr [id number] IV 06/13/24 20:00 06/14/24 19:59 objective Gen.: Patient lying in bed in medical ICU. Sedated, intubated on mechanical ventilator. Head: Normocephalic, atraumatic. Eyes: PERRLA. Ears: Normal external anatomy. Throat: Endotracheal tube and orogastric tube in place. Neck: Supple, trachea midline. Chest: Transmitted breath sounds bilaterally. Decreased air entry bilaterally. No wheezing. Bibasilar crackles. Cardiovascular: Positive S1, positive S2. Regular rate and rhythm. Abdomen: Positive bowel sounds in all 4 quadrants. Soft, nontender, nondistended. : Grewal in place. Normal external genitalia. Rectal: Deferred. Skin: Warm, dry. Intact. Extremities: 2+ radial pulses bilaterally. No lower extremity edema. Neuro: Sedated. laboratory and microbiology Laboratory Tests 06/13/24 04:21 Test 06/13/24 04:21 Range/Units Serum Glucose 129 H 74-106 mg/dL Assessment/Plan Impression: Septic shock Acute hypoxic respiratory failure On mechanical ventilation Acute kidney injury, resolved Small bowel obstruction, improving Atrial fibrillation Hx of gastric bypass (Dave-en-Y) Obesity, BMI 34.2 Atelectasis Events: Remains intubated, on mechanical ventilator. On AC mode; RR 24, VT 500, PEEP of 5, FiO2 30% ABG reviewed, slight alkalemia Patient's mentation not at goal. Hemoglobin 8.9 g/dL - continue to monitor. Sedated on Fentanyl. TPN for nutritional support. Plan to remove arterial line. Continue antibiotics Wound care. LR at 100 ml/hr for IV fluid hydration Taper sedation Tolerating CPAP this morning. What you if getting make sure Will plan for CPAP with PS 8, PEEP of 5. OK to increase PS to max 20 cmH2O to achieve tidal volume 400-450 mL. Patient is s/p exploratory laparotomy with lysis of adhesions. Rest of plan as noted below. Plan: S/p central line placement. Needed for administration of pressors. S/p intubation on mechanical ventilator. On AC mode; RR 24, VT 500, PEEP of 5, FiO2 30% Sedated on Versed and Fentanyl. Antibiotics GI recommendations appreciated. Monitor WBC Hemoglobin - monitor Monitor renal function. Monitor electrolytes. Supplement as necessary. Monitor ins and outs. Creatinine trending down. Diet and lifestyle modifications discussed Obesity - complicates all care. DVT prophylaxis. Prognosis: Poor given patient's multiple co-morbidities. Condition: Critical Rest of plan per hospitalist and other consultants. A total of 35 minutes of critical care time was spent reviewing the patient record, examining the patient, making a diagnostic and therapeutic plan, discussing this plan with the medical personnel, following up on diagnostic studies and following the patient for clinical stability excluding any and all procedures. At least 50% of this time was spent in direct, [id number] contact. Thank you S JENNA Mcnamara, for allowing me to participate in this patient's care. Further recommendations will depend on the patient's clinical course. Please do not hesitate to contact me if you have any questions or concerns. This medical document was created using an electronic medical record system with [employer] system. Although these documentations are being carefully reviewed, there may still be some phonetic and typographical changes. The errors are purely typographical, due to imperfection on the software program, and do not reflect any compromise in the patient's medical care Dietary Evaluation Review Comments: 1. advance diet as tolerated per MD 2. Consider EN/TPN if Pt remains NPO for 48 hours Expected Outcomes/Goals: 1. Pt will consume >75% estimated needs within 2-3 days Plan discussed with: Other (NIRAV Martinez, RT, MD) Critical Care Time(min): 35 PRISCILLA CORREA MD Jun 13, 2024 13:55
[2024-06-13 15:01] LABS: Base Excess -2.9 mmol/L (-2.0-3.0)
--- NOTE | 2024-06-13 15:03 | DVHPN2 ---
Progress Note Date Seen: Jun 13, 2024 Medical Necessity Reason Pt with a Central, PICC or Fol: Yes The following are medically ne: Central Line, Grewal Catheter Reason for grewal catheter: Strict I&O Objective vital signs Vital Sign Date Time Temp Pulse Resp B/P (MAP) Pulse Ox O2 Delivery O2 Flow Rate FiO2 06/13/24 14:15 88 39 168/69 (102) 100 06/13/24 14:00 Mechanical Ventilator+ 30 30 06/13/24 12:00 99.1 99.1 06/11/24 13:47 70.0 Total Intake and Output 06/12/24 06/12/24 06/13/24 15:00 23:00 07:00 Intake Total 919 ml 2335 ml 1380.0 ml Output Total 815 ml 1125 ml Balance 919 ml 1520 ml 255.0 ml medications Current Medications Medications Dose Ordered Sig/Jason Route Start Time Stop Time Status Last Admin Dose Admin Ondansetron HCl 4 mg Q4HP PRN IV 05/22/24 15:00 06/06/24 02:47 4 MG Acetaminophen 650 mg Q6HP PRN PO 05/22/24 15:00 05/29/24 21:55 650 MG Citalopram Hydrobromide 20 mg DAILY PO 05/23/24 10:00 06/11/24 10:10 20 MG Hydralazine HCl 10 mg Q6HP PRN IV 05/23/24 05:00 06/12/24 09:00 10 MG Prochlorperazine Edisylate 10 mg Q6HP PRN IV 05/23/24 12:00 06/04/24 12:42 10 MG Atorvastatin Calcium 20 mg DAILY PO 05/24/24 10:00 06/11/24 10:10 20 MG Nortriptyline HCl 50 mg HS PO 05/23/24 22:00 06/05/24 21:48 50 MG Tamsulosin HCl 0.4 mg QPM PO 05/23/24 18:00 06/11/24 18:05 0.4 MG Docusate Calcium 240 mg DAILY PO 06/03/24 12:33 06/03/24 19:44 240 MG Metoprolol Tartrate 10 mg BID PO 06/03/24 22:00 UNV Sennosides 8.6 mg DAILYP PO 06/03/24 12:33 06/11/24 10:10 8.6 MG Duloxetine HCl 60 mg DAILY PO 06/03/24 12:34 06/11/24 10:10 60 MG Metoprolol Tartrate 25 mg BID PO 06/03/24 22:00 Hold 06/03/24 22:43 25 MG Norepinephrine Bitartrate 250 ml @ 3.75 mls/hr Q24H IV 06/04/24 13:30 06/10/24 06:18 15 MLS/HR Metoprolol Tartrate 5 mg Q4HP PRN IV 06/05/24 11:15 Hold Pantoprazole Sodium 40 mg DAILY IV 06/06/24 10:00 06/13/24 09:59 40 MG Amino Acids 0 ml @ 0 mls/hr PER PHARMACY IV 06/07/24 13:30 Diagnostic Test (Pha) 1 strip Q6HR 06/07/24 18:00 06/13/24 12:00 1 STRIP Insulin Human Regular FOLLOW SLIDING SCALE Q6HR SC 06/07/24 18:00 06/13/24 11:40 2 UNITS Dextrose 50 ml UD IV 06/07/24 14:15 Morphine Sulfate 2 mg Q4HPRN PRN IV 06/08/24 10:45 Midazolam HCl 50 ml @ 3 mls/hr [id number] IV 06/08/24 15:45 06/10/24 12:07 4 MLS/HR Fentanyl Citrate 250 ml @ 10 mls/hr Q24H IV 06/08/24 15:45 06/11/24 23:51 12.5 MLS/HR Vasopressin 20 units/Sodium Chloride 100 ml @ 9 mls/hr Q11H7M IV 06/09/24 07:30 06/11/24 00:26 9 MLS/HR Phenylephrine HCl 250 ml @ 30 mls/hr Q8H20M IV 06/09/24 07:30 Acetaminophen 650 mg Q6HP PRN [place] 06/09/24 08:15 06/13/24 01:13 650 MG Lactated Ringer's 1,000 ml @ 100 mls/hr Q10H IV 06/09/24 10:00 06/13/24 00:43 100 MLS/HR Enoxaparin Sodium 100 mg Q12HR SC 06/09/24 22:00 06/13/24 12:55 100 MG Metoprolol Tartrate 5 mg BID IV 06/11/24 13:45 UNV Diltiazem HCl 10 mg Q8H IV 06/11/24 14:45 06/13/24 12:55 10 MG Ceftriaxone Sodium 50 ml @ 100 mls/hr DAILY@1000 IV 06/12/24 11:00 06/13/24 10:00 100 MLS/HR Labetalol HCl 10 mg Q2HPRN PRN IV 06/12/24 10:45 06/13/24 11:36 10 MG Fat Emulsion Intravenous 100 ml/Sodium Acetate 40 meq/Potassium Phosphate 44 meq/ Magnesium Sulfate 20 meq/ Multivitamins 10 ml/Chromium/ Copper/Manganese/ Zinc 1 ml/Insulin Human Regular 4 units/Amino Acids/ Dextrose 1,196.04 ml @ 50 mls/hr [id number] IV 06/12/24 20:00 06/13/24 19:59 06/12/24 20:43 50 MLS/HR Fat Emulsion Intravenous 100 ml/Potassium Acetate 40 meq/ Potassium Phosphate 44 meq/ Magnesium Sulfate 24 meq/ Multivitamins 10 ml/Chromium/ Copper/Manganese/ Zinc 1 ml/Insulin Human Regular 4 units/Amino Acids/ Dextrose 1,197.04 ml @ 50 mls/hr [id number] IV 06/13/24 20:00 06/14/24 19:59 laboratory and microbiology Laboratory Tests 06/13/24 04:21 Test 06/13/24 04:21 Range/Units Serum Glucose 129 H 74-106 mg/dL Microbiology Date/Time Source Procedure Growth Status 06/09/24 18:42 Lung Pending Resulted 06/09/24 18:42 Lung Pending Resulted 06/09/24 18:42 Lung Pending Resulted 06/09/24 18:42 Lung Pending Resulted 06/09/24 18:42 Lung - Final See Separate Report... Resulted 06/09/24 18:42 Bronchial Washings Gram Stain - Final Complete 06/09/24 18:42 Respiratory Culture - Final Escherichia coli Complete Problem List/Assessment/Plan Problem List/Assessment/Plan AFEBRILE VSS INTUBATED DEHYDRATED NO ACTIVE BLEED NOTED ABD SOFT LESS DISTENDED BM X 3 WBC TRENDING DOWN URINE OUTPUT IMPROVED CONDITION BETTER CONTINUE SUPPORTIVE CARE NURSE AT BEDSIDE Plan discussed with: Other My Orders My Orders Orders - MARTHA ALVARES MD Procedure Category Date Status Time Amino Acid PHA 06/13/24 In Process Infusion... W/Fat 20:00 Magnesium LAB 06/14/24 Verified 05:00 Phosphorus LAB 06/14/24 Verified 05:00 Tpn Per Pharmacy DEANNA 06/13/24 In Process 20:00 Dietary Evaluation Review Comments: 1. advance diet as tolerated per MD 2. Consider EN/TPN if Pt remains NPO for 48 hours Expected Outcomes/Goals: 1. Pt will consume >75% estimated needs within 2-3 days MARTHA ALVARES MD Jun 13, 2024 15:03
[2024-06-13] MEDS: TPN PER PHARMACY IV NR (20:52)
[2024-06-14] VITALS (60 sets, daily range): BP systolic 101–189; BP diastolic 42–80; PULSE 64–92; RESP 13–34; TEMP 97.9–99.5; O2SAT 88–100
[2024-06-14] MEDS ORDERED: hydrALAZINE HCL 20 MG/ML VL IV PRN (03:45)
[2024-06-14 04:47] LABS: Basophils # (auto) 0 10 ^3/uL (0-0.2); Basophils % (auto) 0.3 % (0.0-2.0); Eosinophils # (auto) 0.1 10 ^3/uL (0-0.8); Hematocrit 28.4 % (41.0-53.0); Hemoglobin 9.6 g/dL (13.5-17.5); Lymphocytes # (auto) 0.8 10 ^3/uL (0.4-5.4); Lymphocytes % (auto) 8.2 % (10.0-50.0); Mean Corpuscular Hemoglobin 29.3 pg (28.0-32.0); Mean Corpuscular Hgb Conc. 33.6 g/dL (32.0-36.0); Mean Corpuscular Volume 87.1 fL (80.0-100.0); Monocytes # (auto) 0.5 10 ^3/uL (0-1.3); Monocytes % (auto) 5.7 % (0.0-12.0); Neutrophils # (auto) 7.8 10 ^3/uL (1.6-8.6); Neutrophils % (auto) 84.8 % (37.0-80.0); Nucleated Red Blood Cells % 0.1 %; Platelet Count (auto) 237 10^3/uL (140-450); Red Blood Cells 3.26 10^6/uL (4.5-5.90); Red Cell Distribution Width 17.8 % (11.8-14.3); White Blood Cell 9.2 10^3/uL (4.4-10.8)
[2024-06-14 05:00] LABS: Alanine Aminotransferase 21 U/L (7-40); Albumin 2.5 g/dL (3.2-4.8); Alkaline Phosphatase 172 U/L (46-116); Anion Gap 5 (5-15); Aspartate Aminotransferase 31 U/L (13-40); BUN/Creatinine Ratio 33.3 (10.0-20.0); Blood Urea Nitrogen 24 mg/dL (9-23); Calcium 8.7 mg/dL (8.7-10.4); Carbon Dioxide 26 mmol/L (20-31); Chloride 109 mmol/L (98-107); Glucose 126 mg/dL (74-106); Magnesium 1.7 mg/dL (1.6-2.6); Potassium 3.3 mmol/L (3.5-5.1); Sodium 140 mmol/L (136-145)
[2024-06-14 05:01] LABS: Bilirubin, Total 0.6 mg/dL (0.2-1.0); Phosphorus 3.4 mg/dL (2.4-5.1); Total Protein 4.4 g/dL (5.7-8.2)
[2024-06-14] MEDS: POTASSIUM CHL 20MEQ/100ML 100 ML IV ONE (06:37)
[2024-06-14] MEDS: MORPHINE SULFATE INJ 2 MG/ml SYRG IV PRN (08:12)
[2024-06-14 08:13] LABS: Base Excess 0.8 mmol/L (-2.0-3.0)
--- NOTE | 2024-06-14 08:40 | DVHPN2 ---
Progress Note - Dictate Date Seen: Jun 14, 2024 Medical Necessity Reason Pt with a Central, PICC or Fol: Yes The following are medically ne: Central Line, Grewal Catheter Reason for grewal catheter: Strict I&O vital signs Vital Sign Date Time Temp Pulse Resp B/P (MAP) Pulse Ox O2 Delivery O2 Flow Rate FiO2 06/14/24 08:12 85 30 182/67 06/14/24 07:47 100 30 06/14/24 06:00 Mechanical Ventilator+ 06/14/24 04:00 99.5 99.5 Total Intake and Output 06/13/24 06/13/24 06/14/24 15:00 23:00 07:00 Intake Total 1500 ml 1100 ml 1250 ml Output Total 1000 ml 1575 ml Balance 1500 ml 100 ml -325 ml medications Current Medications Medications Dose Ordered Sig/Jason Route Start Time Stop Time Status Last Admin Dose Admin Ondansetron HCl 4 mg Q4HP PRN IV 05/22/24 15:00 06/06/24 02:47 4 MG Acetaminophen 650 mg Q6HP PRN PO 05/22/24 15:00 05/29/24 21:55 650 MG Citalopram Hydrobromide 20 mg DAILY PO 05/23/24 10:00 06/11/24 10:10 20 MG Prochlorperazine Edisylate 10 mg Q6HP PRN IV 05/23/24 12:00 06/04/24 12:42 10 MG Atorvastatin Calcium 20 mg DAILY PO 05/24/24 10:00 06/11/24 10:10 20 MG Nortriptyline HCl 50 mg HS PO 05/23/24 22:00 06/05/24 21:48 50 MG Tamsulosin HCl 0.4 mg QPM PO 05/23/24 18:00 06/11/24 18:05 0.4 MG Docusate Calcium 240 mg DAILY PO 06/03/24 12:33 06/03/24 19:44 240 MG Metoprolol Tartrate 10 mg BID PO 06/03/24 22:00 UNV Sennosides 8.6 mg DAILYP PO 06/03/24 12:33 06/11/24 10:10 8.6 MG Duloxetine HCl 60 mg DAILY PO 06/03/24 12:34 06/11/24 10:10 60 MG Metoprolol Tartrate 25 mg BID PO 06/03/24 22:00 Hold 06/03/24 22:43 25 MG Norepinephrine Bitartrate 250 ml @ 3.75 mls/hr Q24H IV 06/04/24 13:30 06/10/24 06:18 15 MLS/HR Metoprolol Tartrate 5 mg Q4HP PRN IV 06/05/24 11:15 Hold Pantoprazole Sodium 40 mg DAILY IV 06/06/24 10:00 06/13/24 09:59 40 MG Amino Acids 0 ml @ 0 mls/hr PER PHARMACY IV 06/07/24 13:30 Diagnostic Test (Pha) 1 strip Q6HR 06/07/24 18:00 06/14/24 06:18 1 STRIP Insulin Human Regular FOLLOW SLIDING SCALE Q6HR SC 06/07/24 18:00 06/13/24 11:40 2 UNITS Dextrose 50 ml UD IV 06/07/24 14:15 Morphine Sulfate 2 mg Q4HPRN PRN IV 06/08/24 10:45 06/14/24 08:12 2 MG Midazolam HCl 50 ml @ 3 mls/hr [id number] IV 06/08/24 15:45 06/10/24 12:07 4 MLS/HR Fentanyl Citrate 250 ml @ 10 mls/hr Q24H IV 06/08/24 15:45 06/11/24 23:51 12.5 MLS/HR Vasopressin 20 units/Sodium Chloride 100 ml @ 9 mls/hr Q11H7M IV 06/09/24 07:30 06/11/24 00:26 9 MLS/HR Phenylephrine HCl 250 ml @ 30 mls/hr Q8H20M IV 06/09/24 07:30 Acetaminophen 650 mg Q6HP PRN CA 06/09/24 08:15 06/13/24 01:13 650 MG Lactated Ringer's 1,000 ml @ 100 mls/hr Q10H IV 06/09/24 10:00 06/14/24 01:12 100 MLS/HR Enoxaparin Sodium 100 mg Q12HR SC 06/09/24 22:00 06/13/24 20:57 100 MG Metoprolol Tartrate 5 mg BID IV 06/11/24 13:45 UNV Diltiazem HCl 10 mg Q8H IV 06/11/24 14:45 10/14/24 06:31 10 MG Ceftriaxone Sodium 50 ml @ 100 mls/hr DAILY@1000 IV 06/12/24 11:00 06/13/24 10:00 100 MLS/HR Labetalol HCl 10 mg Q2HPRN PRN IV 06/12/24 10:45 06/14/24 04:15 10 MG Fat Emulsion Intravenous 100 ml/Potassium Acetate 40 meq/ Potassium Phosphate 44 meq/ Magnesium Sulfate 24 meq/ Multivitamins 10 ml/Chromium/ Copper/Manganese/ Zinc 1 ml/Insulin Human Regular 4 units/Amino Acids/ Dextrose 1,197.04 ml @ 50 mls/hr [id number] IV 06/13/24 20:00 06/14/24 19:59 06/13/24 20:52 50 MLS/HR Hydralazine HCl 20 mg Q6HP PRN IV 06/14/24 03:45 laboratory and microbiology Laboratory Tests 06/14/24 04:36 Test 06/14/24 04:36 Range/Units Serum Glucose 126 H 74-106 mg/dL Assessment/Plan s/p Laparotomy (found to have contained bowel perforation, abscess) Has Bowel movements transferred to ICU On pressure support. On IV BB/CCB Had mechanical fall and found to have hip fracture. S/p ORIF Patient is a 74-year-old gentleman who presented on May 22, 2024 for epigastric pain. It seems that he ate sandwich in this was followed by repeated abdominal pain and vomiting. He has been admitted with small-bowel obstruction. He also was found to have gallstones and gastric outlet obstruction. He has been seen by surgery and GI. He has been having NG tube. Patient does have history of paroxysmal AFib and is on Eliquis as outpatient. On 05/24 2024, the patient was found to have tachyarrhythmia and cardiology was involved for its evaluation and management. Telemetry revealed tachyarrhythmia in the rate of 150s. Tele was in favor of SVT. Patient was attached to the monitor and 6 mg of adenosine was given which resulted in breaking of the tachyarrhythmia inpatient been back to sinus rhythm. As per patient, he usually follows with Cardiology in [facility]. As per patient, he did have angiogram (cardiac catheterization some years ago and was told that it was normal findings). Lying flat in bed and not in acute distress. No JVD. Mucosa is pink and wet. No carotid bruit. No goiter. Lungs are clear to auscultation. At the time of evaluation the patient started to be in tachyarrhythmia and in palpitation. Later, heart rate decreased. No thrill/gallop. Abdomen is soft. Extremities do not reveal edema Past medical history includes atrial fibrillation (on Eliquis as outpatient), DJD, heart failure (diastolic), COPD, hypertension, hyperlipidemia, reported diabetes mellitus, obesity, old history of tonsillectomy and gastric bypass surgery. He is known to have kidney stones. Echocardiogram of January 2020 revealed ejection fraction of 60% and biatrial enlargement Troponin (high sensitive): 19 - 11 TSH: 3.28 CT of the abdomen and pelvis revealed: IMPRESSION: 1. Cholelithiasis with the gallbladder distended. 2. Postop changes to the stomach with a fluid-filled distended stomach and dilated fluid-filled small bowel findings suggest small bowel obstruction. 3. Multiple bilateral nonobstructing renal calculi. 4. Prosthesis in the right hip. Chest x-ray revealed: Frontal chest radiograph demonstrates no acute osseous or superficial soft tissue abnormalities. Enteric tube visualized overlying the plane of the stomach. The trachea is midline. The cardiac silhouette and mediastinum are within normal limits. No pneumothorax, pleural effusions, or consolidations. Partially visualized gaseous distended loops of bowel. Repeat chest xry revealed: IMPRESSION: 1. Stable appearance of the support lines and tubes. 2. Bibasilar airspace disease similar to prior study. HIDA scan reported: IMPRESSION: 1. Findings may reflect chronic cholecystitis, cannot exclude acute cholecystitis due to lack of 30-60 minute images. KUB revealed: IMPRESSION: Findings concerning for small bowel obstruction versus ileus. Repeat KUB revealed: FINDINGS/IMPRESSION: Dilated loops of small bowel with gas and stool visualized in the colon. Findings appear improved compared to prior exam. Repeat KUB revealed: IMPRESSION: 1. There are air-filled dilated small bowel loops. Air and stool is seen within the colon. The findings appear mildly improved comparison to the prior study. The findings fairly stable and May relate to an ileus.. Clinical correlation and continued follow-up is recommended Repeat KUB revealed: Impression: 1. Nonobstructive bowel gas pattern. Repeat KUB revealed: Findings/ Impression: Postsurgical changes of the abdomen with skin lavern noted over the right hemiabdomen. Enteric tube is noted terminating within the stomach. There are gas-filled mildly distended small bowel loops which may be due to ileus with partial bowel obstruction not excluded. There is contrast noted within the nondistended large bowel. Bibasilar atelectasis. No acute bony abnormalities. Right total hip replacement with partially visualized intramedullary speedy and dynamic screw fixation of the left proximal femur Gallbladder ultrasound reported: FINDINGS: Examination is limited. The gallbladder appears distended. The gallbladder wall measures 2 mm in thickness, within normal limits. Possible sludge in the gallbladder. Negative reported sonographic valladares's sign. The common bile duct measures 6 mm in diameter, within normal limits. The liver measures at the upper limits of normal in size, at 16.4 cm in craniocaudal dimension. Heterogeneous echotexture of the liver. The pancreas is obscured by bowel gas. The right kidney measures 9.6 cm. There is no hydronephrosis. Limited evaluation of the right kidney. Echogenic focus, possible renal calculus at the midpole measuring 1.4 cm. The patient does have renal calculi on recent CT exam. IMPRESSION: 1. Limited examination as described above. Possible gallbladder sludge and distended gallbladder. No sonographic evidence of acute cholecystitis. 2. Additional nonacute findings as described above. HIDA scan revealed: Impression: 1. Unremarkable hepatobiliary study without evidence of acute cholecystitis. Left Hip Xry: FINDINGS/IMPRESSION: There is a displaced and impacted left intertrochanteric fracture. Patient is status post right hip arthroplasty. EKG revealed SVT Tele revealed SVT which later transitioned into sinus rhythm Echocardiogram revealed: Technically limited study secondary to poor acoustic windows. Left ventricle: Mild concentric left ventricular hypertrophy was seen. LVEF was 55-60%. Right ventricle was normal size with normal systolic function. Both atria were mildly dilated. Aortic valve was not well visualized. Aortic sclerosis with no stenosis was observed. Mxkt-we-gjxkmsol aortic insufficiency was observed. Mild mitral/tricuspid regurgitation was seen. Tricuspid valve was not well visualized. Right ventricular systolic pressure was assessed around 25 mm Hg. There was no pericardial effusion. Ascending aorta was 4.5 cm. Patient is a 74-year-old gentleman who presented with abdominal pain and is being managed for small bowel obstruction. He does have history of paroxysmal AFib. Has not been taking his medications regularly and this was followed with tachyarrhythmia. Tachyarrhythmia was in favor of SVT. SVT responded to adenosine Small-bowel obstruction Obesity History of gastric bypass Paroxysmal AFib SVT Status post adenosine management Diabetes mellitus Obesity, morbid Gallstone Renal stone s/p laparotomy bowel perforation Cardiac suggestion for management: For now, manage in ICU Follow-up electrolytes and kidney function tests and correct abnormalities Keep potassium above 4 and magnesium above 2 Continue Cardizem Fluid resuscitation Surgery and GI follow up Long-term continuation of anticoagulation is suggested (for now patient on Lovenox). .. Further evaluation and management depends on the above and clinical course A total of 75 minutes was spent reviewing the patient record, examining the patient, making a diagnostic and therapeutic plan, discussing this plan with medical personnel, following up on diagnostic studies and following the patient for clinical stability excluding any and all procedures. At least 50% of this time was spent in direct, [id number] contact. Thank you for allowing me to participate in this patient's care. Further recommendations will depend on patient's clinical course. Please do not hesitate to contact me if you have any questions or concerns. This medical document was created using electronic medical record system with [employer] computerized dictation system. Although this document has been carefully reviewed, there may still be some phonetic and typographical errors. These areas are purely typographical due to the imperfection of the software programs, and do not reflect any compromise in the patient's medical care. Dietary Evaluation Review Comments: 1. advance diet as tolerated per MD 2. Consider EN/TPN if Pt remains NPO for 48 hours Expected Outcomes/Goals: 1. Pt will consume >75% estimated needs within 2-3 days Plan discussed with: Other (nurse) BROOKS PRITCHARD MD Jun 14, 2024 08:40
[2024-06-14 09:54] LABS: Base Excess -0.1 mmol/L (-2.0-3.0)
--- NOTE | 2024-06-14 10:25 | DVH ---
EXAM: XY CHEST PORTABLE Indication:INTUBATED- POSSIBLE EXTUBATION Technique: Single frontal view of the chest was obtained Comparison: XY CHEST XRAY 1 VIEW on DOS: 06/11/24, XY CHEST XRAY 1 VIEW on DOS: 06/08/24, XY CHEST POR TABLE on DOS: 06/07/24, XY CHEST XRAY 1 VIEW on DOS: 06/05/24, XY CHEST PORTABLE on DOS: 05/23/24 FINDINGS: Lines and Tubes: Endotracheal projects 0.7 cm above the level of the gary. Recommend retraction. R ight internal jugular central venous catheter tip projects over the superior vena cava. Lungs: No focal consolidation. Low lung volumes. Pleura: No effusion. No pneumothorax. Cardiomediastinal contours: Unremarkable. Atherosclerotic vascular calcifications of the thoracic ao rta are noted. Bones: No acute osseous abnormality. IMPRESSION: Endotracheal projects 0.7 cm above the level of the gary. Recommend retraction.
[2024-06-14] MEDS: ACETAMINOPHEN IV 1000 MG/100ML (10MG/ML) IV PRN (11:58)
[2024-06-14] MEDS ORDERED: dilTIAZem 25 MG/5 ML VIAL IV SCH (14:00)
--- NOTE | 2024-06-14 14:40 | DVHPN2 ---
Progress Note - Dictate Date Seen: Jun 14, 2024 Medical Necessity Reason Pt with a Central, PICC or Fol: Yes The following are medically ne: Central Line, Grewal Catheter Reason for grewal catheter: Strict I&O vital signs Vital Sign Date Time Temp Pulse Resp B/P (MAP) Pulse Ox O2 Delivery O2 Flow Rate FiO2 06/14/24 13:30 116/46 06/14/24 13:06 84 25 99 8.0 30 06/14/24 12:00 Cool Aerosol 06/14/24 04:00 99.5 99.5 Total Intake and Output 06/13/24 06/13/24 06/14/24 15:00 23:00 07:00 Intake Total 1500 ml 1100 ml 1250 ml Output Total 1000 ml 1575 ml Balance 1500 ml 100 ml -325 ml medications Current Medications Medications Dose Ordered Sig/Jason Route Start Time Stop Time Status Last Admin Dose Admin Ondansetron HCl 4 mg Q4HP PRN IV 05/22/24 15:00 06/06/24 02:47 4 MG Acetaminophen 650 mg Q6HP PRN PO 05/22/24 15:00 Hold 05/29/24 21:55 650 MG Citalopram Hydrobromide 20 mg DAILY PO 05/23/24 10:00 06/11/24 10:10 20 MG Prochlorperazine Edisylate 10 mg Q6HP PRN IV 05/23/24 12:00 06/04/24 12:42 10 MG Atorvastatin Calcium 20 mg DAILY PO 05/24/24 10:00 06/11/24 10:10 20 MG Nortriptyline HCl 50 mg HS PO 05/23/24 22:00 06/05/24 21:48 50 MG Tamsulosin HCl 0.4 mg QPM PO 05/23/24 18:00 06/11/24 18:05 0.4 MG Docusate Calcium 240 mg DAILY PO 06/03/24 12:33 06/03/24 19:44 240 MG Metoprolol Tartrate 10 mg BID PO 06/03/24 22:00 UNV Sennosides 8.6 mg DAILYP PO 06/03/24 12:33 06/11/24 10:10 8.6 MG Duloxetine HCl 60 mg DAILY PO 06/03/24 12:34 06/11/24 10:10 60 MG Metoprolol Tartrate 25 mg BID PO 06/03/24 22:00 Hold 06/03/24 22:43 25 MG Norepinephrine Bitartrate 250 ml @ 3.75 mls/hr Q24H IV 06/04/24 13:30 06/10/24 06:18 15 MLS/HR Metoprolol Tartrate 5 mg Q4HP PRN IV 06/05/24 11:15 Hold Pantoprazole Sodium 40 mg DAILY IV 06/06/24 10:00 06/14/24 10:07 40 MG Amino Acids 0 ml @ 0 mls/hr PER PHARMACY IV 06/07/24 13:30 Diagnostic Test (Pha) 1 strip Q6HR 06/07/24 18:00 06/14/24 12:47 1 STRIP Insulin Human Regular FOLLOW SLIDING SCALE Q6HR SC 06/07/24 18:00 06/13/24 11:40 2 UNITS Dextrose 50 ml UD IV 06/07/24 14:15 Morphine Sulfate 2 mg Q4HPRN PRN IV 06/08/24 10:45 06/14/24 08:12 2 MG Midazolam HCl 50 ml @ 3 mls/hr [id number] IV 06/08/24 15:45 06/10/24 12:07 4 MLS/HR Fentanyl Citrate 250 ml @ 10 mls/hr Q24H IV 06/08/24 15:45 06/11/24 23:51 12.5 MLS/HR Vasopressin 20 units/Sodium Chloride 100 ml @ 9 mls/hr Q11H7M IV 06/09/24 07:30 06/11/24 00:26 9 MLS/HR Phenylephrine HCl 250 ml @ 30 mls/hr Q8H20M IV 06/09/24 07:30 Acetaminophen [address] 06/09/24 08:15 Hold 06/13/24 01:13 650 MG Lactated Ringer's 1,000 ml @ 100 mls/hr Q10H IV 06/09/24 10:00 06/14/24 10:43 100 MLS/HR Enoxaparin Sodium 100 mg Q12HR SC 06/09/24 22:00 06/14/24 10:08 100 MG Metoprolol Tartrate 5 mg BID IV 06/11/24 13:45 UNV Ceftriaxone Sodium 50 ml @ 100 mls/hr DAILY@1000 IV 06/12/24 11:00 06/14/24 10:08 100 MLS/HR Labetalol HCl 10 mg Q2HPRN PRN IV 06/12/24 10:45 06/14/24 04:15 10 MG Fat Emulsion Intravenous 100 ml/Potassium Acetate 40 meq/ Potassium Phosphate 44 meq/ Magnesium Sulfate 24 meq/ Multivitamins 10 ml/Chromium/ Copper/Manganese/ Zinc 1 ml/Insulin Human Regular 4 units/Amino Acids/ Dextrose 1,197.04 ml @ 50 mls/hr [id number] IV 06/13/24 20:00 06/14/24 19:59 06/13/24 20:52 50 MLS/HR Hydralazine HCl 20 mg Q6HP PRN IV 06/14/24 03:45 Fat Emulsion Intravenous 100 ml/Sodium Acetate 20 meq/Potassium Acetate 40 meq/ Potassium Phosphate 33 meq/ Magnesium Sulfate 28 meq/ Multivitamins 10 ml/Chromium/ Copper/Manganese/ Zinc 1 ml/Insulin Human Regular 2 units/Amino Acids/ Dextrose 1,255.52 ml @ 52 mls/hr Q24H9M IV 06/14/24 20:00 06/15/24 19:59 Diltiazem HCl 10 mg Q8H IV 06/14/24 14:45 objective General Appearance: alert, no distress HEENT: EOMI, PERRLA, normal external inspect of ears, no icterus, no nasal drainage Neck: no carotid bruit, no jugular venous distention (JVD), no lymphadenopathy Chest: normal thorax Respiratory: clear to auscultation, normal air movement Cardiovascular: regular rate and rhythm, no diastolic murmur, no jugular venous distention (JVD), no rub, no systolic murmur Abdominal: soft, no hepatomegaly, no mass, no splenomegaly, no tenderness Genitourinary: grossly normal external Musculoskeletal: no joint tenderness, no swelling Extremities: normal pulses, no calf tenderness, no clubbing, no cyanosis, no edema Skin: no bruising, no jaundice, no rash Neurological: alert, No focal deficit laboratory and microbiology Laboratory Tests 06/14/24 04:36 Test 06/14/24 04:36 Range/Units Serum Glucose 126 H 74-106 mg/dL Problem List 1. Small bowel obstruction Monitor, surgical consult, GI consult, NPO 2. HLD Monitor 3. Persistent atrial fibrillation Monitor, full dose Lovenox 4. Obesity Monitor 5. Hx gastric bypass Monitor 6. Benign essential HTN Monitor, antihypertensives 7. Gallstones Monitor, surgical consult, GI consult, NPO, HIDA scan 8. Sepsis Monitor 9. Septic Shock Monitor 10. Acute renal failure Monitor, nephrology consult Assessment/Plan Subjective Patient is awake, however lethargic. Objective Patient was extubated today at 1030 this morning. Patient is currently on a fullness mask. SpO2 100%. Patient was admitted for small bowel obstruction. Patient is status post exploratory laparotomy. Patient was found to have a bowel perforation with intra-abdominal abscess lysis of adhesions and revision of gastric bypass by Dr. Felicia Lorenz Plan Continue TPN for nutritional support. Continue antibiotics. I did speak with Dr. Cadet last week. Continue current regimen. Continue IV fluids. Plan for PT eval and speech therapy eval for swallow evaluation. Dietary Evaluation Review Comments: 1. advance diet as tolerated per MD 2. Consider EN/TPN if Pt remains NPO for 48 hours Expected Outcomes/Goals: 1. Pt will consume >75% estimated needs within 2-3 days Plan discussed with: Patient, Other [employer] Jun 14, 2024 14:40
[2024-06-14] MEDS: dilTIAZem 25 MG/5 ML VIAL IV SCH (14:45)
--- NOTE | 2024-06-14 16:53 | DVHPN2 ---
Progress Note Date Seen: Jun 14, 2024 Medical Necessity Reason Pt with a Central, PICC or Fol: Yes The following are medically ne: Central Line, Grewal Catheter Reason for grewal catheter: Strict I&O Objective vital signs Vital Sign Date Time Temp Pulse Resp B/P (MAP) Pulse Ox O2 Delivery O2 Flow Rate FiO2 06/14/24 14:00 72 06/14/24 14:00 17 88 Cool Aerosol 8 N/A 06/14/24 13:30 116/46 06/14/24 04:00 99.5 99.5 Total Intake and Output 06/13/24 06/13/24 06/14/24 15:00 23:00 07:00 Intake Total 1500 ml 1100 ml 1250 ml Output Total 1000 ml 1575 ml Balance 1500 ml 100 ml -325 ml medications Current Medications Medications Dose Ordered Sig/Jason Route Start Time Stop Time Status Last Admin Dose Admin Ondansetron HCl 4 mg Q4HP PRN IV 05/22/24 15:00 06/06/24 02:47 4 MG Acetaminophen 650 mg Q6HP PRN PO 05/22/24 15:00 05/29/24 21:55 650 MG Citalopram Hydrobromide 20 mg DAILY PO 05/23/24 10:00 06/11/24 10:10 20 MG Prochlorperazine Edisylate 10 mg Q6HP PRN IV 05/23/24 12:00 06/04/24 12:42 10 MG Atorvastatin Calcium 20 mg DAILY PO 05/24/24 10:00 06/11/24 10:10 20 MG Nortriptyline HCl 50 mg HS PO 05/23/24 22:00 06/05/24 21:48 50 MG Tamsulosin HCl 0.4 mg QPM PO 05/23/24 18:00 06/11/24 18:05 0.4 MG Docusate Calcium 240 mg DAILY PO 06/03/24 12:33 06/03/24 19:44 240 MG Metoprolol Tartrate 10 mg BID PO 06/03/24 22:00 UNV Sennosides 8.6 mg DAILYP PO 06/03/24 12:33 06/11/24 10:10 8.6 MG Duloxetine HCl 60 mg DAILY PO 06/03/24 12:34 06/11/24 10:10 60 MG Metoprolol Tartrate 25 mg BID PO 06/03/24 22:00 Hold 06/03/24 22:43 25 MG Norepinephrine Bitartrate 250 ml @ 3.75 mls/hr Q24H IV 06/04/24 13:30 06/10/24 06:18 15 MLS/HR Metoprolol Tartrate 5 mg Q4HP PRN IV 06/05/24 11:15 Hold Pantoprazole Sodium 40 mg DAILY IV 06/06/24 10:00 06/14/24 10:07 40 MG Amino Acids 0 ml @ 0 mls/hr PER PHARMACY IV 06/07/24 13:30 Diagnostic Test (Pha) 1 strip Q6HR 06/07/24 18:00 06/14/24 12:47 1 STRIP Insulin Human Regular FOLLOW SLIDING SCALE Q6HR SC 06/07/24 18:00 06/13/24 11:40 2 UNITS Dextrose 50 ml UD IV 06/07/24 14:15 Morphine Sulfate 2 mg Q4HPRN PRN IV 06/08/24 10:45 06/14/24 08:12 2 MG Midazolam HCl 50 ml @ 3 mls/hr [id number] IV 06/08/24 15:45 06/10/24 12:07 4 MLS/HR Fentanyl Citrate 250 ml @ 10 mls/hr Q24H IV 06/08/24 15:45 06/11/24 23:51 12.5 MLS/HR Vasopressin 20 units/Sodium Chloride 100 ml @ 9 mls/hr Q11H7M IV 06/09/24 07:30 06/11/24 00:26 9 MLS/HR Phenylephrine HCl 250 ml @ 30 mls/hr Q8H20M IV 06/09/24 07:30 Acetaminophen 650 mg Q6HP PRN UT 06/09/24 08:15 06/13/24 01:13 650 MG Lactated Ringer's 1,000 ml @ 100 mls/hr Q10H IV 06/09/24 10:00 06/14/24 10:43 100 MLS/HR Enoxaparin Sodium 100 mg Q12HR SC 06/09/24 22:00 06/14/24 10:08 100 MG Metoprolol Tartrate 5 mg BID IV 06/11/24 13:45 UNV Ceftriaxone Sodium 50 ml @ 100 mls/hr DAILY@1000 IV 06/12/24 11:00 06/14/24 10:08 100 MLS/HR Labetalol HCl 10 mg Q2HPRN PRN IV 06/12/24 10:45 06/14/24 04:15 10 MG Fat Emulsion Intravenous 100 ml/Potassium Acetate 40 meq/ Potassium Phosphate 44 meq/ Magnesium Sulfate 24 meq/ Multivitamins 10 ml/Chromium/ Copper/Manganese/ Zinc 1 ml/Insulin Human Regular 4 units/Amino Acids/ Dextrose 1,197.04 ml @ 50 mls/hr [id number] IV 06/13/24 20:00 06/14/24 19:59 06/13/24 20:52 50 MLS/HR Hydralazine HCl 20 mg Q6HP PRN IV 06/14/24 03:45 Fat Emulsion Intravenous 100 ml/Sodium Acetate 20 meq/Potassium Acetate 40 meq/ Potassium Phosphate 33 meq/ Magnesium Sulfate 28 meq/ Multivitamins 10 ml/Chromium/ Copper/Manganese/ Zinc 1 ml/Insulin Human Regular 2 units/Amino Acids/ Dextrose 1,255.52 ml @ 52 mls/hr Q24H9M IV 06/14/24 20:00 06/15/24 19:59 Diltiazem HCl 10 mg Q8H IV 06/14/24 14:45 laboratory and microbiology Laboratory Tests 06/14/24 04:36 Test 06/14/24 04:36 Range/Units Serum Glucose 126 H 74-106 mg/dL Microbiology Date/Time Source Procedure Growth Status 06/09/24 18:42 Lung Pending Resulted 06/09/24 18:42 Lung Pending Resulted 06/09/24 18:42 Lung Pending Resulted 06/09/24 18:42 Lung Pending Resulted 06/09/24 18:42 Lung - Final See Separate Report... Resulted 06/09/24 18:42 Bronchial Washings Gram Stain - Final Complete 06/09/24 18:42 Respiratory Culture - Final Escherichia coli Complete Problem List/Assessment/Plan Problem List/Assessment/Plan AFEBRILE VSS EXTUBATED NO ACTIVE BLEED NOTED ABD SOFT LESS DISTENDED BM X 3 WBC TRENDING DOWN URINE OUTPUT IMPROVED CONDITION BETTER CONTINUE SUPPORTIVE CARE NURSE AT BEDSIDE DC NG KEEP NPO Plan discussed with: Patient My Orders My Orders Orders - MARTHA ALVARES MD Procedure Category Date Status Time Amino Acid PHA 10/14/24 In Process Infusion... W/Fat 20:00 Tpn Per Pharmacy [facility] 06/14/24 In Process 20:00 Comprehensive LAB 06/15/24 Verified Metabolic Panel 04:00 Magnesium LAB 06/15/24 Verified 04:00 Phosphorus LAB 06/15/24 Verified 04:00 Triglycerides LAB 06/15/24 Verified 04:00 Dietary Evaluation Review Comments: 1. advance diet as tolerated per MD 2. Consider EN/TPN if Pt remains NPO for 48 hours Expected Outcomes/Goals: 1. Pt will consume >75% estimated needs within 2-3 days MARTHA ALVARES MD Jun 14, 2024 16:53
--- NOTE | 2024-06-14 19:35 | DVHPN2 ---
Progress Note - Dictate Date Seen: Jun 14, 2024 Medical Necessity Reason Pt with a Central, PICC or Fol: Yes The following are medically ne: Central Line, Grewal Catheter Reason for grewal catheter: Strict I&O Subjective Patient seen and examined at bedside. On supplemental oxygen. Overnight events reviewed. vital signs Vital Sign Date Time Temp Pulse Resp B/P (MAP) Pulse Ox O2 Delivery O2 Flow Rate FiO2 06/14/24 18:00 16 99 Room Air* 0 21 06/14/24 14:00 72 06/14/24 13:30 116/46 06/14/24 04:00 99.5 99.5 Total Intake and Output 06/13/24 06/13/24 06/14/24 14:59 22:59 06:59 Intake Total 1750 ml 1000 ml 1200 ml Output Total 1000 ml 1575 ml Balance 1750 ml 0 ml -375 ml medications Current Medications Medications Dose Ordered Sig/Jason Route Start Time Stop Time Status Last Admin Dose Admin Ondansetron HCl 4 mg Q4HP PRN IV 05/22/24 15:00 06/06/24 02:47 4 MG Acetaminophen 650 mg Q6HP PRN PO 05/22/24 15:00 05/29/24 21:55 650 MG Citalopram Hydrobromide 20 mg DAILY PO 05/23/24 10:00 06/11/24 10:10 20 MG Prochlorperazine Edisylate 10 mg Q6HP PRN IV 05/23/24 12:00 06/04/24 12:42 10 MG Atorvastatin Calcium 20 mg DAILY PO 05/24/24 10:00 06/11/24 10:10 20 MG Nortriptyline HCl 50 mg HS PO 05/23/24 22:00 06/05/24 21:48 50 MG Tamsulosin HCl 0.4 mg QPM PO 05/23/24 18:00 06/11/24 18:05 0.4 MG Docusate Calcium 240 mg DAILY PO 06/03/24 12:33 06/03/24 19:44 240 MG Metoprolol Tartrate 10 mg BID PO 06/03/24 22:00 UNV Sennosides 8.6 mg DAILYP PO 06/03/24 12:33 06/11/24 10:10 8.6 MG Duloxetine HCl 60 mg DAILY PO 06/03/24 12:34 06/11/24 10:10 60 MG Metoprolol Tartrate 25 mg BID PO 06/03/24 22:00 Hold 06/03/24 22:43 25 MG Norepinephrine Bitartrate 250 ml @ 3.75 mls/hr Q24H IV 06/04/24 13:30 06/10/24 06:18 15 MLS/HR Metoprolol Tartrate 5 mg Q4HP PRN IV 06/05/24 11:15 Hold Pantoprazole Sodium 40 mg DAILY IV 06/06/24 10:00 06/14/24 10:07 40 MG Amino Acids 0 ml @ 0 mls/hr PER PHARMACY IV 06/07/24 13:30 Diagnostic Test (Pha) 1 strip Q6HR 06/07/24 18:00 06/14/24 18:47 1 STRIP Insulin Human Regular FOLLOW SLIDING SCALE Q6HR SC 06/07/24 18:00 06/13/24 11:40 2 UNITS Dextrose 50 ml UD IV 06/07/24 14:15 Morphine Sulfate 2 mg Q4HPRN PRN IV 06/08/24 10:45 06/14/24 08:12 2 MG Midazolam HCl 50 ml @ 3 mls/hr [id number] IV 06/08/24 15:45 06/10/24 12:07 4 MLS/HR Fentanyl Citrate 250 ml @ 10 mls/hr Q24H IV 06/08/24 15:45 06/11/24 23:51 12.5 MLS/HR Vasopressin 20 units/Sodium Chloride 100 ml @ 9 mls/hr Q11H7M IV 06/09/24 07:30 06/11/24 00:26 9 MLS/HR Phenylephrine HCl 250 ml @ 30 mls/hr Q8H20M IV 06/09/24 07:30 Acetaminophen 650 mg Q6HP PRN [place] 06/09/24 08:15 06/13/24 01:13 650 MG Lactated Ringer's 1,000 ml @ 100 mls/hr Q10H IV 06/09/24 10:00 06/14/24 10:43 100 MLS/HR Enoxaparin Sodium 100 mg Q12HR SC 06/09/24 22:00 06/14/24 10:08 100 MG Metoprolol Tartrate 5 mg BID IV 06/11/24 13:45 UNV Ceftriaxone Sodium 50 ml @ 100 mls/hr DAILY@1000 IV 06/12/24 11:00 06/14/24 10:08 100 MLS/HR Labetalol HCl 10 mg Q2HPRN PRN IV 06/12/24 10:45 06/14/24 04:15 10 MG Fat Emulsion Intravenous 100 ml/Potassium Acetate 40 meq/ Potassium Phosphate 44 meq/ Magnesium Sulfate 24 meq/ Multivitamins 10 ml/Chromium/ Copper/Manganese/ Zinc 1 ml/Insulin Human Regular 4 units/Amino Acids/ Dextrose 1,197.04 ml @ 50 mls/hr [id number] IV 06/13/24 20:00 06/14/24 19:59 06/13/24 20:52 50 MLS/HR Hydralazine HCl 20 mg Q6HP PRN IV 06/14/24 03:45 Fat Emulsion Intravenous 100 ml/Sodium Acetate 20 meq/Potassium Acetate 40 meq/ Potassium Phosphate 33 meq/ Magnesium Sulfate 28 meq/ Multivitamins 10 ml/Chromium/ Copper/Manganese/ Zinc 1 ml/Insulin Human Regular 2 units/Amino Acids/ Dextrose 1,255.52 ml @ 52 mls/hr Q24H9M IV 06/14/24 20:00 06/15/24 19:59 Diltiazem HCl 10 mg Q8H IV 06/14/24 14:45 objective Gen.: Patient lying in bed in no apparent distress. He is breathing comfortably on room air. Head: Normocephalic, atraumatic Eyes: EOMI/PERRLA. Ears: Normal hearing. Normal anatomy. Neck/trachea: Trachea midline, supple. Nose: Normal external anatomy. Mouth: Moist mucous membranes. Chest: Decreased air entry bilaterally. No wheezing or rhonchi. Cardio vascular: Positive S1, positive S2. Regular rate and rhythm. Abdomen: Positive bowel sounds in all 4 quadrants. Soft, non-tender, non- distended. : Deferred. Rectal: Deferred Skin: Warm, dry. Extremities: 2+ radial pulses bilaterally. No lower extremity edema. Neuro: Awake, alert, oriented x3. No gross motor or sensory deficits. Cranial nerves II through XII intact. Gait not assessed. laboratory and microbiology Laboratory Tests 06/14/24 04:36 Test 06/14/24 04:36 Range/Units Serum Glucose 126 H 74-106 mg/dL Assessment/Plan Impression: Septic shock Acute hypoxic respiratory failure On mechanical ventilation Acute kidney injury, resolved Small bowel obstruction, improving Atrial fibrillation Hx of gastric bypass ([id number]) Obesity, BMI 34.2 Atelectasis Events: Remains intubated, on mechanical ventilator. On AC mode; RR 24, VT 500, PEEP of 5, FiO2 30% ABG reviewed, slight alkalemia Patient mentation improved this morning. He underwent CPAP trial. He tolerated well. ABG and weaning parameters were reviewed and were acceptable. Patient was extubated uneventfully. He was currently on room air. Hemoglobin 9.6 g/dL - continue to monitor. TPN for nutritional support. Supplement potassium. Phosphorus 3.4. Magnesium 1.7. Recommend supplement magnesium. Recommend supplement phosphorus and potassium. Continue antibiotics Wound care. LR at 100 ml/hr for IV fluid hydration Patient is s/p exploratory laparotomy with lysis of adhesions. Rest of plan as noted below. Plan: S/p central line placement. Needed for administration of pressors. S/p intubation on mechanical ventilator. On AC mode; RR 24, VT 500, PEEP of 5, FiO2 30% Sedated on Versed and Fentanyl. Antibiotics GI recommendations appreciated. Monitor WBC Hemoglobin - monitor Monitor renal function. Monitor electrolytes. Supplement as necessary. Monitor ins and outs. Creatinine trending down. Diet and lifestyle modifications discussed Obesity - complicates all care. DVT prophylaxis. Prognosis: Poor given patient's multiple co-morbidities. Condition: Critical Rest of plan per hospitalist and other consultants. A total of 35 minutes of critical care time was spent reviewing the patient record, examining the patient, making a diagnostic and therapeutic plan, discussing this plan with the medical personnel, following up on diagnostic studies and following the patient for clinical stability excluding any and all procedures. At least 50% of this time was spent in direct, [id number] contact. Thank you S JENNA Mcnamara, for allowing me to participate in this patient's care. Further recommendations will depend on the patient's clinical course. Please do not hesitate to contact me if you have any questions or concerns. This medical document was created using an electronic medical record system with [employer] system. Although these documentations are being carefully reviewed, there may still be some phonetic and typographical changes. The errors are purely typographical, due to imperfection on the software program, and do not reflect any compromise in the patient's medical care Dietary Evaluation Review Comments: 1. advance diet as tolerated per MD 2. Consider EN/TPN if Pt remains NPO for 48 hours Expected Outcomes/Goals: 1. Pt will consume >75% estimated needs within 2-3 days Plan discussed with: Patient, Other (RN Faustina, RT MD [place]) Critical Care Time(min): 35 PRISCILLA CORREA MD Jun 14, 2024 19:35
[2024-06-14] MEDS: TPN PER PHARMACY IV NR (20:31)
--- NOTE | 2024-06-14 21:29 | DVHPN2 ---
Progress Note - Dictate Date Seen: Jun 14, 2024 Medical Necessity Reason Pt with a Central, PICC or Fol: Yes The following are medically ne: Central Line, Grewal Catheter Reason for grewal catheter: Strict I&O Subjective No new complaints Patient was extubated this morning Patient is having bowel activity No active GI bleeding was reported NG tube output is bilious PROCEDURES: Exploratory laparotomy with drainage of intra-abdominal abscess, lysis of adhesions, and small bowel resection and anastomosis with revision of the distal gastric bypass anastomosis. vital signs Vital Sign Date Time Temp Pulse Resp B/P (MAP) Pulse Ox O2 Delivery O2 Flow Rate FiO2 06/14/24 18:00 74 06/14/24 18:00 16 99 Room Air* 0 21 06/14/24 13:30 116/46 06/14/24 04:00 99.5 99.5 Total Intake and Output 06/13/24 06/13/24 06/14/24 15:00 23:00 07:00 Intake Total 1500 ml 1100 ml 1250 ml Output Total 1000 ml 1575 ml Balance 1500 ml 100 ml -325 ml medications Current Medications Medications Dose Ordered Sig/Jason Route Start Time Stop Time Status Last Admin Dose Admin Ondansetron HCl 4 mg Q4HP PRN IV 05/22/24 15:00 06/06/24 02:47 4 MG Acetaminophen 650 mg Q6HP PRN PO 05/22/24 15:00 05/29/24 21:55 650 MG Citalopram Hydrobromide 20 mg DAILY PO 05/23/24 10:00 06/11/24 10:10 20 MG Prochlorperazine Edisylate 10 mg Q6HP PRN IV 05/23/24 12:00 06/04/24 12:42 10 MG Atorvastatin Calcium 20 mg DAILY PO 05/24/24 10:00 06/11/24 10:10 20 MG Nortriptyline HCl 50 mg HS PO 05/23/24 22:00 06/05/24 21:48 50 MG Tamsulosin HCl 0.4 mg QPM PO 05/23/24 18:00 06/11/24 18:05 0.4 MG Docusate Calcium 240 mg DAILY PO 06/03/24 12:33 06/03/24 19:44 240 MG Metoprolol Tartrate 10 mg BID PO 06/03/24 22:00 UNV Sennosides 8.6 mg DAILYP PO 06/03/24 12:33 06/11/24 10:10 8.6 MG Duloxetine HCl 60 mg DAILY PO 06/03/24 12:34 06/11/24 10:10 60 MG Metoprolol Tartrate 25 mg BID PO 06/03/24 22:00 Hold 06/03/24 22:43 25 MG Norepinephrine Bitartrate 250 ml @ 3.75 mls/hr Q24H IV 06/04/24 13:30 06/10/24 06:18 15 MLS/HR Metoprolol Tartrate 5 mg Q4HP PRN IV 06/05/24 11:15 Hold Pantoprazole Sodium 40 mg DAILY IV 06/06/24 10:00 06/14/24 10:07 40 MG Amino Acids 0 ml @ 0 mls/hr PER PHARMACY IV 06/07/24 13:30 Diagnostic Test (Pha) 1 strip Q6HR 06/07/24 18:00 06/14/24 18:47 1 STRIP Insulin Human Regular FOLLOW SLIDING SCALE Q6HR SC 06/07/24 18:00 06/13/24 11:40 2 UNITS Dextrose 50 ml UD IV 06/07/24 14:15 Morphine Sulfate 2 mg Q4HPRN PRN IV 06/08/24 10:45 06/14/24 08:12 2 MG Midazolam HCl 50 ml @ 3 mls/hr [id number] IV 06/08/24 15:45 06/10/24 12:07 4 MLS/HR Fentanyl Citrate 250 ml @ 10 mls/hr Q24H IV 06/08/24 15:45 06/11/24 23:51 12.5 MLS/HR Vasopressin 20 units/Sodium Chloride 100 ml @ 9 mls/hr Q11H7M IV 06/09/24 07:30 06/11/24 00:26 9 MLS/HR Phenylephrine HCl 250 ml @ 30 mls/hr Q8H20M IV 06/09/24 07:30 Acetaminophen 650 mg Q6HP PRN [place] 06/09/24 08:15 06/13/24 01:13 650 MG Lactated Ringer's 1,000 ml @ 100 mls/hr Q10H IV 06/09/24 10:00 06/14/24 20:19 100 MLS/HR Enoxaparin Sodium 100 mg Q12HR SC 06/09/24 22:00 06/14/24 10:08 100 MG Metoprolol Tartrate 5 mg BID IV 06/11/24 13:45 UNV Ceftriaxone Sodium 50 ml @ 100 mls/hr DAILY@1000 IV 06/12/24 11:00 06/14/24 10:08 100 MLS/HR Labetalol HCl 10 mg Q2HPRN PRN IV 06/12/24 10:45 06/14/24 04:15 10 MG Hydralazine HCl 20 mg Q6HP PRN IV 06/14/24 03:45 Fat Emulsion Intravenous 100 ml/Sodium Acetate 20 meq/Potassium Acetate 40 meq/ Potassium Phosphate 33 meq/ Magnesium Sulfate 28 meq/ Multivitamins 10 ml/Chromium/ Copper/Manganese/ Zinc 1 ml/Insulin Human Regular 2 units/Amino Acids/ Dextrose 1,255.52 ml @ 52 mls/hr Q24H9M IV 06/14/24 20:00 06/15/24 19:59 06/14/24 20:31 52 MLS/HR Diltiazem HCl 10 mg Q8H IV 06/14/24 14:45 objective General Appearance: Intubated off sedation starting to wake up on CPAP trial HEENT: EOMI, PERRLA, normal external inspect of ears, no icterus, no nasal drainage Neck: no carotid bruit, no jugular venous distention (JVD), no lymphadenopathy Chest: normal thorax Respiratory: clear to auscultation, normal air movement Cardiovascular: regular rate and rhythm, no diastolic murmur, no jugular venous distention (JVD), no rub, no systolic murmur Abdominal: soft, no hepatomegaly, no mass, no splenomegaly, dressing dry binder in place GIANNA drain Musculoskeletal: no joint tenderness, no swelling Extremities: normal pulses, no calf tenderness, no clubbing, no cyanosis, no edema Skin: no bruising, no jaundice, no rash Neurological: alert, No focal deficit laboratory and microbiology Laboratory Tests 06/14/24 04:36 Test 06/14/24 04:36 Range/Units Serum Glucose 126 H 74-106 mg/dL Problems(with codes): (1) INTESTINAL OBSTRUCT NOS (2) N&V (nausea and vomiting) (3) Hypotension Prognosis Plan Continue IV TPN Continue IV PPI and IV antibiotics Patient is still NPO Continue supportive care Follow surgical consult recommendations Dietary Evaluation Review Comments: 1. advance diet as tolerated per MD 2. Consider EN/TPN if Pt remains NPO for 48 hours Expected Outcomes/Goals: 1. Pt will consume >75% estimated needs within 2-3 days Plan discussed with: Patient, Other (ICU Nurse) SRINIVASAN ALVARES MD Jun 14, 2024 21:29
[2024-06-15] VITALS (50 sets, daily range): BP systolic 103–132; BP diastolic 43–57; PULSE 65–81; RESP 16–27; TEMP 97.5–99.1; O2SAT 95–100
[2024-06-15 04:44] LABS: Alanine Aminotransferase 29 U/L (7-40); Alkaline Phosphatase 133 U/L (46-116); Anion Gap 5 (5-15); Aspartate Aminotransferase 37 U/L (13-40); Blood Urea Nitrogen 18 mg/dL (9-23); Calcium 8.1 mg/dL (8.7-10.4); Carbon Dioxide 27 mmol/L (20-31); Chloride 110 mmol/L (98-107); Glucose 122 mg/dL (74-106); Magnesium 1.9 mg/dL (1.6-2.6); Potassium 3.3 mmol/L (3.5-5.1); Sodium 142 mmol/L (136-145); Triglycerides 165 mg/dL (< 150)
[2024-06-15 04:45] LABS: Bilirubin, Total 0.4 mg/dL (0.2-1.0); Phosphorus 3.2 mg/dL (2.4-5.1); Total Protein 3.7 g/dL (5.7-8.2)
--- NOTE | 2024-06-15 07:47 | DVHPN2 ---
Progress Note - Dictate Date Seen: Jun 15, 2024 Medical Necessity Reason Pt with a Central, PICC or Fol: Yes The following are medically ne: Central Line, Grewal Catheter Reason for grewal catheter: Strict I&O vital signs Vital Sign Date Time Temp Pulse Resp B/P (MAP) Pulse Ox O2 Delivery O2 Flow Rate FiO2 06/15/24 06:30 74 20 119/48 (71) 99 06/15/24 06:00 Room Air* 0 21 06/15/24 04:00 98.1 98.1 Total Intake and Output 06/14/24 06/14/24 06/15/24 15:00 23:00 07:00 Intake Total 1250 ml 756 ml 1064 ml Output Total 925 ml 1375 ml Balance 1250 ml -169 ml -311 ml medications Current Medications Medications Dose Ordered Sig/Jason Route Start Time Stop Time Status Last Admin Dose Admin Ondansetron HCl 4 mg Q4HP PRN IV 05/22/24 15:00 06/06/24 02:47 4 MG Acetaminophen 650 mg Q6HP PRN PO 05/22/24 15:00 05/29/24 21:55 650 MG Citalopram Hydrobromide 20 mg DAILY PO 05/23/24 10:00 06/11/24 10:10 20 MG Prochlorperazine Edisylate 10 mg Q6HP PRN IV 05/23/24 12:00 06/04/24 12:42 10 MG Atorvastatin Calcium 20 mg DAILY PO 05/24/24 10:00 06/11/24 10:10 20 MG Nortriptyline HCl 50 mg HS PO 05/23/24 22:00 06/05/24 21:48 50 MG Tamsulosin HCl 0.4 mg QPM PO 05/23/24 18:00 06/11/24 18:05 0.4 MG Docusate Calcium 240 mg DAILY PO 06/03/24 12:33 06/03/24 19:44 240 MG Metoprolol Tartrate 10 mg BID PO 06/03/24 22:00 UNV Sennosides 8.6 mg DAILYP PO 06/03/24 12:33 06/11/24 10:10 8.6 MG Duloxetine HCl 60 mg DAILY PO 06/03/24 12:34 06/11/24 10:10 60 MG Metoprolol Tartrate 25 mg BID PO 06/03/24 22:00 Hold 06/03/24 22:43 25 MG Norepinephrine Bitartrate 250 ml @ 3.75 mls/hr Q24H IV 06/04/24 13:30 06/10/24 06:18 15 MLS/HR Metoprolol Tartrate 5 mg Q4HP PRN IV 06/05/24 11:15 Hold Pantoprazole Sodium 40 mg DAILY IV 06/06/24 10:00 06/14/24 10:07 40 MG Amino Acids 0 ml @ 0 mls/hr PER PHARMACY IV 06/07/24 13:30 Diagnostic Test (Pha) 1 strip Q6HR 06/07/24 18:00 06/15/24 06:00 1 STRIP Insulin Human Regular FOLLOW SLIDING SCALE Q6HR SC 06/07/24 18:00 06/13/24 11:40 2 UNITS Dextrose 50 ml UD IV 06/07/24 14:15 Morphine Sulfate 2 mg Q4HPRN PRN IV 06/08/24 10:45 06/15/24 02:22 2 MG Midazolam HCl 50 ml @ 3 mls/hr [id number] IV 06/08/24 15:45 06/10/24 12:07 4 MLS/HR Fentanyl Citrate 250 ml @ 10 mls/hr Q24H IV 06/08/24 15:45 06/11/24 23:51 12.5 MLS/HR Vasopressin 20 units/Sodium Chloride 100 ml @ 9 mls/hr Q11H7M IV 06/09/24 07:30 06/11/24 00:26 9 MLS/HR Phenylephrine HCl 250 ml @ 30 mls/hr Q8H20M IV 06/09/24 07:30 Acetaminophen 650 mg Q6HP PRN AR 06/09/24 08:15 06/13/24 01:13 650 MG Lactated Ringer's 1,000 ml @ 100 mls/hr Q10H IV 06/09/24 10:00 06/15/24 06:07 100 MLS/HR Enoxaparin Sodium 100 mg Q12HR SC 06/09/24 22:00 06/14/24 21:49 100 MG Metoprolol Tartrate 5 mg BID IV 06/11/24 13:45 UNV Ceftriaxone Sodium 50 ml @ 100 mls/hr DAILY@1000 IV 06/12/24 11:00 06/14/24 10:08 100 MLS/HR Labetalol HCl 10 mg Q2HPRN PRN IV 06/12/24 10:45 06/14/24 04:15 10 MG Hydralazine HCl 20 mg Q6HP PRN IV 06/14/24 03:45 Fat Emulsion Intravenous 100 ml/Sodium Acetate 20 meq/Potassium Acetate 40 meq/ Potassium Phosphate 33 meq/ Magnesium Sulfate 28 meq/ Multivitamins 10 ml/Chromium/ Copper/Manganese/ Zinc 1 ml/Insulin Human Regular 2 units/Amino Acids/ Dextrose 1,255.52 ml @ 52 mls/hr Q24H9M IV 06/14/24 20:00 06/15/24 19:59 06/14/24 20:31 52 MLS/HR Diltiazem HCl 10 mg Q8H IV 06/14/24 14:45 laboratory and microbiology Laboratory Tests 06/15/24 03:35 06/14/24 04:36 Test 06/15/24 03:35 Range/Units Serum Glucose 122 H 74-106 mg/dL Assessment/Plan s/p Laparotomy (found to have contained bowel perforation, abscess) Has Bowel movements In ICU On pressure support. On IV BB/CCB Extubated. Had mechanical fall and found to have hip fracture. S/p ORIF Patient is a 74-year-old gentleman who presented on May 22, 2024 for epigastric pain. It seems that he ate sandwich in this was followed by repeated abdominal pain and vomiting. He has been admitted with small-bowel obstruction. He also was found to have gallstones and gastric outlet obstruction. He has been seen by surgery and GI. He has been having NG tube. Patient does have history of paroxysmal AFib and is on Eliquis as outpatient. On 05/24 2024, the patient was found to have tachyarrhythmia and cardiology was involved for its evaluation and management. Telemetry revealed tachyarrhythmia in the rate of 150s. Tele was in favor of SVT. Patient was attached to the monitor and 6 mg of adenosine was given which resulted in breaking of the tachyarrhythmia inpatient been back to sinus rhythm. As per patient, he usually follows with Cardiology in [facility]. As per patient, he did have angiogram (cardiac catheterization some years ago and was told that it was normal findings). Lying flat in bed and not in acute distress. No JVD. Mucosa is pink and wet. No carotid bruit. No goiter. Lungs are clear to auscultation. No thrill/gallop. Abdomen is soft. Extremities do not reveal edema Past medical history includes atrial fibrillation (on Eliquis as outpatient), DJD, heart failure (diastolic), COPD, hypertension, hyperlipidemia, reported diabetes mellitus, obesity, old history of tonsillectomy and gastric bypass surgery. He is known to have kidney stones. Echocardiogram of January 2020 revealed ejection fraction of 60% and biatrial enlargement Troponin (high sensitive): 19 - 11 TSH: 3.28 CT of the abdomen and pelvis revealed: IMPRESSION: 1. Cholelithiasis with the gallbladder distended. 2. Postop changes to the stomach with a fluid-filled distended stomach and dilated fluid-filled small bowel findings suggest small bowel obstruction. 3. Multiple bilateral nonobstructing renal calculi. 4. Prosthesis in the right hip. Chest x-ray revealed: Frontal chest radiograph demonstrates no acute osseous or superficial soft tissue abnormalities. Enteric tube visualized overlying the plane of the stomach. The trachea is midline. The cardiac silhouette and mediastinum are within normal limits. No pneumothorax, pleural effusions, or consolidations. Partially visualized gaseous distended loops of bowel. Repeat chest xry revealed: IMPRESSION: 1. Stable appearance of the support lines and tubes. 2. Bibasilar airspace disease similar to prior study. Repeat chest xry revealed: IMPRESSION: Endotracheal projects 0.7 cm above the level of the gary. Recommend retraction. HIDA scan reported: IMPRESSION: 1. Findings may reflect chronic cholecystitis, cannot exclude acute cholecystitis due to lack of 30-60 minute images. KUB revealed: IMPRESSION: Findings concerning for small bowel obstruction versus ileus. Repeat KUB revealed: FINDINGS/IMPRESSION: Dilated loops of small bowel with gas and stool visualized in the colon. Findings appear improved compared to prior exam. Repeat KUB revealed: IMPRESSION: 1. There are air-filled dilated small bowel loops. Air and stool is seen within the colon. The findings appear mildly improved comparison to the prior study. The findings fairly stable and May relate to an ileus.. Clinical correlation and continued follow-up is recommended Repeat KUB revealed: Impression: 1. Nonobstructive bowel gas pattern. Repeat KUB revealed: Findings/ Impression: Postsurgical changes of the abdomen with skin lavern noted over the right hemiabdomen. Enteric tube is noted terminating within the stomach. There are gas-filled mildly distended small bowel loops which may be due to ileus with partial bowel obstruction not excluded. There is contrast noted within the nondistended large bowel. Bibasilar atelectasis. No acute bony abnormalities. Right total hip replacement with partially visualized intramedullary speedy and dynamic screw fixation of the left proximal femur Gallbladder ultrasound reported: FINDINGS: Examination is limited. The gallbladder appears distended. The gallbladder wall measures 2 mm in thickness, within normal limits. Possible sludge in the gallbladder. Negative reported sonographic valladares's sign. The common bile duct measures 6 mm in diameter, within normal limits. The liver measures at the upper limits of normal in size, at 16.4 cm in craniocaudal dimension. Heterogeneous echotexture of the liver. The pancreas is obscured by bowel gas. The right kidney measures 9.6 cm. There is no hydronephrosis. Limited evaluation of the right kidney. Echogenic focus, possible renal calculus at the midpole measuring 1.4 cm. The patient does have renal calculi on recent CT exam. IMPRESSION: 1. Limited examination as described above. Possible gallbladder sludge and distended gallbladder. No sonographic evidence of acute cholecystitis. 2. Additional nonacute findings as described above. HIDA scan revealed: Impression: 1. Unremarkable hepatobiliary study without evidence of acute cholecystitis. Left Hip Xry: FINDINGS/IMPRESSION: There is a displaced and impacted left intertrochanteric fracture. Patient is status post right hip arthroplasty. EKG revealed SVT Tele revealed SVT which later transitioned into sinus rhythm Echocardiogram revealed: Technically limited study secondary to poor acoustic windows. Left ventricle: Mild concentric left ventricular hypertrophy was seen. LVEF was 55-60%. Right ventricle was normal size with normal systolic function. Both atria were mildly dilated. Aortic valve was not well visualized. Aortic sclerosis with no stenosis was observed. [id number] aortic insufficiency was observed. Mild mitral/tricuspid regurgitation was seen. Tricuspid valve was not well visualized. Right ventricular systolic pressure was assessed around 25 mm Hg. There was no pericardial effusion. Ascending aorta was 4.5 cm. Patient is a 74-year-old gentleman who presented with abdominal pain and is being managed for small bowel obstruction. He does have history of paroxysmal AFib. Has not been taking his medications regularly and this was followed with tachyarrhythmia. Tachyarrhythmia was in favor of SVT. SVT responded to adenosine Small-bowel obstruction Obesity History of gastric bypass Paroxysmal AFib SVT Status post adenosine management Diabetes mellitus Obesity, morbid Gallstone Renal stone s/p laparotomy bowel perforation Cardiac suggestion for management: For now, manage in ICU Follow-up electrolytes and kidney function tests and correct abnormalities Keep potassium above 4 and magnesium above 2 Continue Cardizem Fluid resuscitation Extubated. Surgery and GI follow up Long-term continuation of anticoagulation is suggested (for now patient on Lovenox). .. Further evaluation and management depends on the above and clinical course A total of 75 minutes was spent reviewing the patient record, examining the patient, making a diagnostic and therapeutic plan, discussing this plan with medical personnel, following up on diagnostic studies and following the patient for clinical stability excluding any and all procedures. At least 50% of this time was spent in direct, [id number] contact. Thank you for allowing me to participate in this patient's care. Further recommendations will depend on patient's clinical course. Please do not hesitate to contact me if you have any questions or concerns. This medical document was created using electronic medical record system with [employer] computerized dictation system. Although this document has been carefully reviewed, there may still be some phonetic and typographical errors. These areas are purely typographical due to the imperfection of the software programs, and do not reflect any compromise in the patient's medical care. Dietary Evaluation Review Comments: 1. advance diet as tolerated per MD 2. Consider EN/TPN if Pt remains NPO for 48 hours Expected Outcomes/Goals: 1. Pt will consume >75% estimated needs within 2-3 days Plan discussed with: Patient, Other (nurse) BROOKS PRITCHARD MD Jun 15, 2024 07:47
[2024-06-15] MEDS: POTASSIUM CHL 20MEQ/100ML 100 ML IV ONE ×2 (11:04→13:59)
--- NOTE | 2024-06-15 19:34 | DVHPN2 ---
Progress Note - Dictate Date Seen: Jun 15, 2024 Medical Necessity Reason Pt with a Central, PICC or Fol: Yes The following are medically ne: Central Line, Grewal Catheter Reason for grewal catheter: Strict I&O Subjective No new complaints Patient is awake responsive extubated He is on supplemental oxygen Patient is having bowel activity No active GI bleeding was reported PROCEDURES: Exploratory laparotomy with drainage of intra-abdominal abscess, lysis of adhesions, and small bowel resection and anastomosis with revision of the distal gastric bypass anastomosis. vital signs Vital Sign Date Time Temp Pulse Resp B/P (MAP) Pulse Ox O2 Delivery O2 Flow Rate FiO2 06/15/24 18:30 66 22 106/44 (64) 100 06/15/24 18:00 Nasal Cannula* 2 28 06/15/24 16:00 99.1 99.1 Total Intake and Output 06/14/24 06/14/24 06/15/24 15:00 23:00 07:00 Intake Total 1250 ml 756 ml 1216 ml Output Total 925 ml 1375 ml Balance 1250 ml -169 ml -159 ml medications Current Medications Medications Dose Ordered Sig/Jason Route Start Time Stop Time Status Last Admin Dose Admin Ondansetron HCl 4 mg Q4HP PRN IV 05/22/24 15:00 06/06/24 02:47 4 MG Acetaminophen 650 mg Q6HP PRN PO 05/22/24 15:00 05/29/24 21:55 650 MG Citalopram Hydrobromide 20 mg DAILY PO 05/23/24 10:00 06/11/24 10:10 20 MG Prochlorperazine Edisylate 10 mg Q6HP PRN IV 05/23/24 12:00 06/04/24 12:42 10 MG Atorvastatin Calcium 20 mg DAILY PO 05/24/24 10:00 06/15/24 09:01 20 MG Nortriptyline HCl 50 mg HS PO 05/23/24 22:00 06/05/24 21:48 50 MG Tamsulosin HCl 0.4 mg QPM PO 05/23/24 18:00 06/11/24 18:05 0.4 MG Docusate Calcium 240 mg DAILY PO 06/03/24 12:33 06/03/24 19:44 240 MG Metoprolol Tartrate 10 mg BID PO 06/03/24 22:00 UNV Sennosides 8.6 mg DAILYP PO 06/03/24 12:33 06/15/24 09:01 8.6 MG Duloxetine HCl 60 mg DAILY PO 06/03/24 12:34 06/15/24 09:01 60 MG Metoprolol Tartrate 25 mg BID PO 06/03/24 22:00 Hold 06/03/24 22:43 25 MG Metoprolol Tartrate 5 mg Q4HP PRN IV 06/05/24 11:15 Hold Pantoprazole Sodium 40 mg DAILY IV 06/06/24 10:00 06/15/24 08:59 40 MG Amino Acids 0 ml @ 0 mls/hr PER PHARMACY IV 06/07/24 13:30 Diagnostic Test (Pha) 1 strip Q6HR 06/07/24 18:00 06/15/24 17:16 1 STRIP Insulin Human Regular FOLLOW SLIDING SCALE Q6HR SC 06/07/24 18:00 06/13/24 11:40 2 UNITS Dextrose 50 ml UD IV 06/07/24 14:15 Morphine Sulfate 2 mg Q4HPRN PRN IV 06/08/24 10:45 06/15/24 14:00 2 MG Midazolam HCl 50 ml @ 3 mls/hr [id number] IV 06/08/24 15:45 06/10/24 12:07 4 MLS/HR Vasopressin 20 units/Sodium Chloride 100 ml @ 9 mls/hr Q11H7M IV 06/09/24 07:30 06/11/24 00:26 9 MLS/HR Acetaminophen 650 mg Q6HP PRN VA 06/09/24 08:15 06/13/24 01:13 650 MG Lactated Ringer's 1,000 ml @ 100 mls/hr Q10H IV 06/09/24 10:00 06/15/24 17:05 100 MLS/HR Enoxaparin Sodium 100 mg Q12HR SC 06/09/24 22:00 06/15/24 09:02 100 MG Metoprolol Tartrate 5 mg BID IV 06/11/24 13:45 UNV Ceftriaxone Sodium 50 ml @ 100 mls/hr DAILY@1000 IV 06/12/24 11:00 06/15/24 08:59 100 MLS/HR Labetalol HCl 10 mg Q2HPRN PRN IV 06/12/24 10:45 06/14/24 04:15 10 MG Hydralazine HCl 20 mg Q6HP PRN IV 06/14/24 03:45 Fat Emulsion Intravenous 100 ml/Sodium Acetate 20 meq/Potassium Acetate 40 meq/ Potassium Phosphate 33 meq/ Magnesium Sulfate 28 meq/ Multivitamins 10 ml/Chromium/ Copper/Manganese/ Zinc 1 ml/Insulin Human Regular 2 units/Amino Acids/ Dextrose 1,255.52 ml @ 52 mls/hr Q24H9M IV 06/14/24 20:00 06/15/24 19:59 06/14/24 20:31 52 MLS/HR Diltiazem HCl 10 mg Q8H IV 06/14/24 14:45 06/15/24 15:07 10 MG Fat Emulsion Intravenous 100 ml/Sodium Acetate 10 meq/Potassium Acetate 50 meq/ Potassium Phosphate 44 meq/ Magnesium Sulfate 30 meq/ Multivitamins 10 ml/Chromium/ Copper/Manganese/ Zinc 1 ml/Amino Acids/Dextrose 1,308.5 ml @ 54 mls/hr [id number] IV 06/15/24 20:00 06/16/24 19:59 objective General Appearance: Intubated off sedation starting to wake up on CPAP trial HEENT: EOMI, PERRLA, normal external inspect of ears, no icterus, no nasal drainage Neck: no carotid bruit, no jugular venous distention (JVD), no lymphadenopathy Chest: normal thorax Respiratory: clear to auscultation, normal air movement Cardiovascular: regular rate and rhythm, no diastolic murmur, no jugular venous distention (JVD), no rub, no systolic murmur Abdominal: soft, no hepatomegaly, no mass, no splenomegaly, dressing dry binder in place GIANNA drain Musculoskeletal: no joint tenderness, no swelling Extremities: normal pulses, no calf tenderness, no clubbing, no cyanosis, no edema Skin: no bruising, no jaundice, no rash Neurological: alert, No focal deficit laboratory and microbiology Laboratory Tests 06/15/24 03:35 06/14/24 04:36 Test 06/15/24 03:35 Range/Units Serum Glucose 122 H 74-106 mg/dL Problems(with codes): (1) INTESTINAL OBSTRUCT NOS (2) CHR PULMON HEART DIS NEC (3) N&V (nausea and vomiting) Prognosis Plan Continue supportive care Await surgical follow up to decide of the patient can have ice chips or water Continue IV TPN Continue IV antibiotics Physical therapy Downgrade to [facility]K Dietary Evaluation Review Comments: 1. advance diet as tolerated per MD 2. Consider EN/TPN if Pt remains NPO for 48 hours Expected Outcomes/Goals: 1. Pt will consume >75% estimated needs within 2-3 days Plan discussed with: Patient SRINIVASAN ALVARES MD Jun 15, 2024 19:34
--- NOTE | 2024-06-15 20:14 | DVHPN2 ---
Progress Note - Dictate Date Seen: Jun 15, 2024 Medical Necessity Reason Pt with a Central, PICC or Fol: Yes The following are medically ne: Central Line, Grewal Catheter Reason for grewal catheter: Strict I&O vital signs Vital Sign Date Time Temp Pulse Resp B/P (MAP) Pulse Ox O2 Delivery O2 Flow Rate FiO2 06/15/24 18:30 66 22 106/44 (64) 100 06/15/24 18:00 Nasal Cannula* 2 28 06/15/24 16:00 99.1 99.1 Total Intake and Output 06/14/24 06/14/24 06/15/24 15:00 23:00 07:00 Intake Total 1250 ml 756 ml 1216 ml Output Total 925 ml 1375 ml Balance 1250 ml -169 ml -159 ml medications Current Medications Medications Dose Ordered Sig/Jason Route Start Time Stop Time Status Last Admin Dose Admin Ondansetron HCl 4 mg Q4HP PRN IV 05/22/24 15:00 06/06/24 02:47 4 MG Acetaminophen 650 mg Q6HP PRN PO 05/22/24 15:00 05/29/24 21:55 650 MG Citalopram Hydrobromide 20 mg DAILY PO 05/23/24 10:00 06/11/24 10:10 20 MG Prochlorperazine Edisylate 10 mg Q6HP PRN IV 05/23/24 12:00 06/04/24 12:42 10 MG Atorvastatin Calcium 20 mg DAILY PO 05/24/24 10:00 06/15/24 09:01 20 MG Nortriptyline HCl 50 mg HS PO 05/23/24 22:00 06/05/24 21:48 50 MG Tamsulosin HCl 0.4 mg QPM PO 05/23/24 18:00 06/11/24 18:05 0.4 MG Docusate Calcium 240 mg DAILY PO 06/03/24 12:33 06/03/24 19:44 240 MG Metoprolol Tartrate 10 mg BID PO 06/03/24 22:00 UNV Sennosides 8.6 mg DAILYP PO 06/03/24 12:33 06/15/24 09:01 8.6 MG Duloxetine HCl 60 mg DAILY PO 06/03/24 12:34 06/15/24 09:01 60 MG Metoprolol Tartrate 25 mg BID PO 06/03/24 22:00 Hold 06/03/24 22:43 25 MG Metoprolol Tartrate 5 mg Q4HP PRN IV 06/05/24 11:15 Hold Pantoprazole Sodium 40 mg DAILY IV 06/06/24 10:00 06/15/24 08:59 40 MG Amino Acids 0 ml @ 0 mls/hr PER PHARMACY IV 06/07/24 13:30 Diagnostic Test (Pha) 1 strip Q6HR 06/07/24 18:00 06/15/24 17:16 1 STRIP Insulin Human Regular FOLLOW SLIDING SCALE Q6HR SC 06/07/24 18:00 06/13/24 11:40 2 UNITS Dextrose 50 ml UD IV 06/07/24 14:15 Morphine Sulfate 2 mg Q4HPRN PRN IV 06/08/24 10:45 06/15/24 14:00 2 MG Midazolam HCl 50 ml @ 3 mls/hr [id number] IV 06/08/24 15:45 06/10/24 12:07 4 MLS/HR Vasopressin 20 units/Sodium Chloride 100 ml @ 9 mls/hr Q11H7M IV 06/09/24 07:30 06/11/24 00:26 9 MLS/HR Acetaminophen 650 mg Q6HP PRN WI 06/09/24 08:15 06/13/24 01:13 650 MG Lactated Ringer's 1,000 ml @ 100 mls/hr Q10H IV 06/09/24 10:00 06/15/24 17:05 100 MLS/HR Enoxaparin Sodium 100 mg Q12HR SC 06/09/24 22:00 06/15/24 09:02 100 MG Metoprolol Tartrate 5 mg BID IV 06/11/24 13:45 UNV Ceftriaxone Sodium 50 ml @ 100 mls/hr DAILY@1000 IV 06/12/24 11:00 06/15/24 08:59 100 MLS/HR Labetalol HCl 10 mg Q2HPRN PRN IV 06/12/24 10:45 06/14/24 04:15 10 MG Hydralazine HCl 20 mg Q6HP PRN IV 06/14/24 03:45 Diltiazem HCl 10 mg Q8H IV 06/14/24 14:45 10/15/24 15:07 10 MG Fat Emulsion Intravenous 100 ml/Sodium Acetate 10 meq/Potassium Acetate 50 meq/ Potassium Phosphate 44 meq/ Magnesium Sulfate 30 meq/ Multivitamins 10 ml/Chromium/ Copper/Manganese/ Zinc 1 ml/Amino Acids/Dextrose 1,308.5 ml @ 54 mls/hr [id number] IV 06/15/24 20:00 06/16/24 19:59 objective General Appearance: alert, no distress HEENT: EOMI, PERRLA, normal external inspect of ears, no icterus, no nasal drainage Neck: no carotid bruit, no jugular venous distention (JVD), no lymphadenopathy Chest: normal thorax Respiratory: clear to auscultation, normal air movement Cardiovascular: regular rate and rhythm, no diastolic murmur, no jugular venous distention (JVD), no rub, no systolic murmur Abdominal: soft, no hepatomegaly, no mass, no splenomegaly, no tenderness Genitourinary: grossly normal external Musculoskeletal: no joint tenderness, no swelling Extremities: normal pulses, no calf tenderness, no clubbing, no cyanosis, no edema Skin: no bruising, no jaundice, no rash Neurological: alert, No focal deficit laboratory and microbiology Laboratory Tests 06/15/24 03:35 06/14/24 04:36 Test 06/15/24 03:35 Range/Units Serum Glucose 122 H 74-106 mg/dL Problem List 1. Small bowel obstruction Monitor, surgical consult, GI consult, NPO 2. HLD Monitor 3. Persistent atrial fibrillation Monitor, full dose Lovenox 4. Obesity Monitor 5. Hx gastric bypass Monitor 6. Benign essential HTN Monitor, antihypertensives 7. Gallstones Monitor, surgical consult, GI consult, NPO, HIDA scan 8. Sepsis Monitor 9. Septic Shock Monitor 10. Acute renal failure Monitor, nephrology consult Assessment/Plan Subjective Patient is awake and alert. Objective Patient was recently extubated yesterday. Patient is now awake and alert and can follow commands. Patient does have a large amount of serous output from his lower abdomen. I did discuss plan of care with our surgeon Dr. Felicia Lorenz. Patient may have anasarca. Fluid appears to be serous. Hemoglobin is stable. Plan Continue TPN for nutritional support. Patient states he is passing flatus. Patient still has some hypoactive bowel sounds. Monitor daily labs. Patient is stable to downgrade to telemetry floor. Dietary Evaluation Review Comments: 1. advance diet as tolerated per MD 2. Consider EN/TPN if Pt remains NPO for 48 hours Expected Outcomes/Goals: 1. Pt will consume >75% estimated needs within 2-3 days Plan discussed with: Patient, Other TETO CRAMER NP Jun 15, 2024 20:14
[2024-06-15] MEDS: TPN PER PHARMACY IV NR (20:36)
--- NOTE | 2024-06-15 21:19 | DVHPN2 ---
Progress Note - Dictate Date Seen: Jun 15, 2024 Medical Necessity Reason Pt with a Central, PICC or Fol: Yes The following are medically ne: Central Line, Babb Catheter Subjective Patient seen and examined at bedside. On room air. Overnight events reviewed. vital signs Vital Sign Date Time Temp Pulse Resp B/P (MAP) Pulse Ox O2 Delivery O2 Flow Rate FiO2 06/15/24 21:00 73 23 120/46 (70) 99 06/15/24 20:01 97.9 97.9 06/15/24 20:00 Nasal Cannula* 2 28 Total Intake and Output 06/14/24 06/14/24 06/15/24 15:00 23:00 07:00 Intake Total 1250 ml 756 ml 1216 ml Output Total 925 ml 1375 ml Balance 1250 ml -169 ml -159 ml medications Current Medications Medications Dose Ordered Sig/Jason Route Start Time Stop Time Status Last Admin Dose Admin Ondansetron HCl 4 mg Q4HP PRN IV 05/22/24 15:00 06/06/24 02:47 4 MG Acetaminophen 650 mg Q6HP PRN PO 05/22/24 15:00 05/29/24 21:55 650 MG Citalopram Hydrobromide 20 mg DAILY PO 05/23/24 10:00 06/11/24 10:10 20 MG Prochlorperazine Edisylate 10 mg Q6HP PRN IV 05/23/24 12:00 06/04/24 12:42 10 MG Atorvastatin Calcium 20 mg DAILY PO 05/24/24 10:00 06/15/24 09:01 20 MG Nortriptyline HCl 50 mg HS PO 05/23/24 22:00 06/05/24 21:48 50 MG Tamsulosin HCl 0.4 mg QPM PO 05/23/24 18:00 06/11/24 18:05 0.4 MG Docusate Calcium 240 mg DAILY PO 06/03/24 12:33 06/03/24 19:44 240 MG Metoprolol Tartrate 10 mg BID PO 06/03/24 22:00 UNV Sennosides 8.6 mg DAILYP PO 06/03/24 12:33 06/15/24 09:01 8.6 MG Duloxetine HCl 60 mg DAILY PO 06/03/24 12:34 06/15/24 09:01 60 MG Metoprolol Tartrate 25 mg BID PO 06/03/24 22:00 Hold 06/03/24 22:43 25 MG Metoprolol Tartrate 5 mg Q4HP PRN IV 06/05/24 11:15 Hold Pantoprazole Sodium 40 mg DAILY IV 06/06/24 10:00 06/15/24 08:59 40 MG Amino Acids 0 ml @ 0 mls/hr PER PHARMACY IV 06/07/24 13:30 Diagnostic Test (Pha) 1 strip Q6HR 06/07/24 18:00 06/15/24 17:16 1 STRIP Insulin Human Regular FOLLOW SLIDING SCALE Q6HR SC 06/07/24 18:00 06/13/24 11:40 2 UNITS Dextrose 50 ml UD IV 06/07/24 14:15 Morphine Sulfate 2 mg Q4HPRN PRN IV 06/08/24 10:45 06/15/24 20:40 2 MG Midazolam HCl 50 ml @ 3 mls/hr [id number] IV 06/08/24 15:45 06/10/24 12:07 4 MLS/HR Vasopressin 20 units/Sodium Chloride 100 ml @ 9 mls/hr Q11H7M IV 06/09/24 07:30 06/11/24 00:26 9 MLS/HR Acetaminophen 650 mg Q6HP PRN ND 06/09/24 08:15 06/13/24 01:13 650 MG Lactated Ringer's 1,000 ml @ 100 mls/hr Q10H IV 06/09/24 10:00 06/15/24 17:05 100 MLS/HR Enoxaparin Sodium 100 mg Q12HR SC 06/09/24 22:00 06/15/24 09:02 100 MG Metoprolol Tartrate 5 mg BID IV 06/11/24 13:45 UNV Ceftriaxone Sodium 50 ml @ 100 mls/hr DAILY@1000 IV 06/12/24 11:00 06/15/24 08:59 100 MLS/HR Labetalol HCl 10 mg Q2HPRN PRN IV 06/12/24 10:45 06/14/24 04:15 10 MG Hydralazine HCl 20 mg Q6HP PRN IV 06/14/24 03:45 Diltiazem HCl 10 mg Q8H IV 06/14/24 14:45 06/15/24 15:07 10 MG Fat Emulsion Intravenous 100 ml/Sodium Acetate 10 meq/Potassium Acetate 50 meq/ Potassium Phosphate 44 meq/ Magnesium Sulfate 30 meq/ Multivitamins 10 ml/Chromium/ Copper/Manganese/ Zinc 1 ml/Amino Acids/Dextrose 1,308.5 ml @ 54 mls/hr [id number] IV 06/15/24 20:00 06/16/24 19:59 06/15/24 20:36 54 MLS/HR objective Gen.: Patient lying in bed in no apparent distress. He is breathing comfortably on room air. Head: Normocephalic, atraumatic Eyes: EOMI/PERRLA. Ears: Normal hearing. Normal anatomy. Neck/trachea: Trachea midline, supple. Nose: Normal external anatomy. Mouth: Moist mucous membranes. Chest: Decreased air entry bilaterally. No wheezing or rhonchi. Cardio vascular: Positive S1, positive S2. Regular rate and rhythm. Abdomen: Positive bowel sounds in all 4 quadrants. Soft, non-tender, non- distended. : Deferred. Rectal: Deferred Skin: Warm, dry. Extremities: 2+ radial pulses bilaterally. No lower extremity edema. Neuro: Awake, alert, oriented x3. No gross motor or sensory deficits. Cranial nerves II through XII intact. Gait not assessed. laboratory and microbiology Laboratory Tests 06/15/24 03:35 06/14/24 04:36 Test 06/15/24 03:35 Range/Units Serum Glucose 122 H 74-106 mg/dL Assessment/Plan Impression: Septic shock Acute hypoxic respiratory failure Acute kidney injury, resolved Small bowel obstruction, improving Atrial fibrillation Hx of gastric bypass (Dave-en-Y) Obesity, BMI 34.2 Atelectasis Events: Breathing on room air No respiratory distress. Continue antibiotics TPN for nutritional support. Hemoglobin 9.6 g/dL - continue to monitor. Supplement potassium and magnesium. Monitor renal function. Swallow evaluation LR at 100 ml/hr for IV fluid hydration Wound care. Patient is s/p exploratory laparotomy with lysis of adhesions. Rest of plan as noted below. Plan: S/p central line placement. Needed for administration of pressors. S/p extubation, on room air. Antibiotics GI recommendations appreciated. Monitor WBC Hemoglobin - monitor Monitor renal function. Monitor electrolytes. Supplement as necessary. Monitor ins and outs. Creatinine trending down. Diet and lifestyle modifications discussed Obesity - complicates all care. DVT prophylaxis. Prognosis: Poor given patient's multiple co-morbidities. Condition: Critical Rest of plan per hospitalist and other consultants. A total of 35 minutes of critical care time was spent reviewing the patient record, examining the patient, making a diagnostic and therapeutic plan, discussing this plan with the medical personnel, following up on diagnostic studies and following the patient for clinical stability excluding any and all procedures. At least 50% of this time was spent in direct, [id number] contact. Thank you Makenzie Mcnamara NP, for allowing me to participate in this patient's care. Further recommendations will depend on the patient's clinical course. Please do not hesitate to contact me if you have any questions or concerns. This medical document was created using an electronic medical record system with [employer] dictation system. Although these documentations are being carefully reviewed, there may still be some phonetic and typographical changes. The errors are purely typographical, due to imperfection on the software program, and do not reflect any compromise in the patient's medical care Dietary Evaluation Review Comments: 1. advance diet as tolerated per MD 2. Consider EN/TPN if Pt remains NPO for 48 hours Expected Outcomes/Goals: 1. Pt will consume >75% estimated needs within 2-3 days Plan discussed with: Other (NIRAV Lomeli) Critical Care Time(min): 35 PRISCILLA CORREA MD Jun 15, 2024 21:19
--- NOTE | 2024-06-15 21:36 | DVHPN2 ---
Progress Note Date Seen: Jun 15, 2024 Medical Necessity Reason Pt with a Central, PICC or Fol: Yes The following are medically ne: Central Line, Grewal Catheter Reason for grewal catheter: Strict I&O Objective vital signs Vital Sign Date Time Temp Pulse Resp B/P (MAP) Pulse Ox O2 Delivery O2 Flow Rate FiO2 06/15/24 21:00 73 23 120/46 (70) 99 06/15/24 20:01 97.9 97.9 06/15/24 20:00 Nasal Cannula* 2 28 Total Intake and Output 06/14/24 06/14/24 06/15/24 15:00 23:00 07:00 Intake Total 1250 ml 756 ml 1216 ml Output Total 925 ml 1375 ml Balance 1250 ml -169 ml -159 ml medications Current Medications Medications Dose Ordered Sig/Jason Route Start Time Stop Time Status Last Admin Dose Admin Ondansetron HCl 4 mg Q4HP PRN IV 05/22/24 15:00 06/06/24 02:47 4 MG Acetaminophen 650 mg Q6HP PRN PO 05/22/24 15:00 05/29/24 21:55 650 MG Citalopram Hydrobromide 20 mg DAILY PO 05/23/24 10:00 06/11/24 10:10 20 MG Prochlorperazine Edisylate 10 mg Q6HP PRN IV 05/23/24 12:00 06/04/24 12:42 10 MG Atorvastatin Calcium 20 mg DAILY PO 05/24/24 10:00 06/15/24 09:01 20 MG Nortriptyline HCl 50 mg HS PO 05/23/24 22:00 06/05/24 21:48 50 MG Tamsulosin HCl 0.4 mg QPM PO 05/23/24 18:00 06/11/24 18:05 0.4 MG Docusate Calcium 240 mg DAILY PO 06/03/24 12:33 06/03/24 19:44 240 MG Metoprolol Tartrate 10 mg BID PO 06/03/24 22:00 UNV Sennosides 8.6 mg DAILYP PO 06/03/24 12:33 06/15/24 09:01 8.6 MG Duloxetine HCl 60 mg DAILY PO 06/03/24 12:34 06/15/24 09:01 60 MG Metoprolol Tartrate 25 mg BID PO 06/03/24 22:00 Hold 06/03/24 22:43 25 MG Metoprolol Tartrate 5 mg Q4HP PRN IV 06/05/24 11:15 Hold Pantoprazole Sodium 40 mg DAILY IV 06/06/24 10:00 06/15/24 08:59 40 MG Amino Acids 0 ml @ 0 mls/hr PER PHARMACY IV 06/07/24 13:30 Diagnostic Test (Pha) 1 strip Q6HR 06/07/24 18:00 06/15/24 17:16 1 STRIP Insulin Human Regular FOLLOW SLIDING SCALE Q6HR SC 06/07/24 18:00 06/13/24 11:40 2 UNITS Dextrose 50 ml UD IV 06/07/24 14:15 Morphine Sulfate 2 mg Q4HPRN PRN IV 06/08/24 10:45 06/15/24 20:40 2 MG Midazolam HCl 50 ml @ 3 mls/hr [id number] IV 06/08/24 15:45 06/10/24 12:07 4 MLS/HR Vasopressin 20 units/Sodium Chloride 100 ml @ 9 mls/hr Q11H7M IV 06/09/24 07:30 06/11/24 00:26 9 MLS/HR Acetaminophen 650 mg Q6HP PRN [place] 06/09/24 08:15 06/13/24 01:13 650 MG Lactated Ringer's 1,000 ml @ 100 mls/hr Q10H IV 06/09/24 10:00 06/15/24 17:05 100 MLS/HR Enoxaparin Sodium 100 mg Q12HR SC 06/09/24 22:00 06/15/24 09:02 100 MG Metoprolol Tartrate 5 mg BID IV 06/11/24 13:45 UNV Ceftriaxone Sodium 50 ml @ 100 mls/hr DAILY@1000 IV 06/12/24 11:00 06/15/24 08:59 100 MLS/HR Labetalol HCl 10 mg Q2HPRN PRN IV 06/12/24 10:45 06/14/24 04:15 10 MG Hydralazine HCl 20 mg Q6HP PRN IV 06/14/24 03:45 Diltiazem HCl 10 mg Q8H IV 06/14/24 14:45 06/15/24 15:07 10 MG Fat Emulsion Intravenous 100 ml/Sodium Acetate 10 meq/Potassium Acetate 50 meq/ Potassium Phosphate 44 meq/ Magnesium Sulfate 30 meq/ Multivitamins 10 ml/Chromium/ Copper/Manganese/ Zinc 1 ml/Amino Acids/Dextrose 1,308.5 ml @ 54 mls/hr [id number] IV 06/15/24 20:00 06/16/24 19:59 06/15/24 20:36 54 MLS/HR laboratory and microbiology Laboratory Tests 06/15/24 03:35 06/14/24 04:36 Test 06/15/24 03:35 Range/Units Serum Glucose 122 H 74-106 mg/dL Microbiology Date/Time Source Procedure Growth Status 06/09/24 18:42 Lung Pending Resulted 06/09/24 18:42 Lung Pending Resulted 06/09/24 18:42 Lung Pending Resulted 06/09/24 18:42 Lung Pending Resulted 06/09/24 18:42 Lung - Final See Separate Report... Resulted 06/09/24 18:42 Bronchial Washings Gram Stain - Final Complete 06/09/24 18:42 Respiratory Culture - Final Escherichia coli Complete Problem List/Assessment/Plan Problem List/Assessment/Plan AFEBRILE VSS EXTUBATED ABD SOFT LESS DISTENDED BM X 3 WBC TRENDING DOWN URINE OUTPUT IMPROVED CONDITION BETTER CONTINUE SUPPORTIVE CARE NURSE AT BEDSIDE KEEP NPO FAILED SWALLOW TEST Plan discussed with: Other My Orders My Orders Orders - MARTHA ALVARES MD Procedure Category Date Status Time Amino Acid PHA 06/15/24 In Process Infusion... W/Fat 20:00 Tpn Per Pharmacy DEANNA 06/15/24 In Process 20:00 Comprehensive LAB 06/16/24 Verified Metabolic Panel 04:00 Phosphorus LAB 06/16/24 Verified 04:00 Magnesium LAB 06/16/24 Verified 04:00 Dietary Evaluation Review Comments: 1. advance diet as tolerated per MD 2. Consider EN/TPN if Pt remains NPO for 48 hours Expected Outcomes/Goals: 1. Pt will consume >75% estimated needs within 2-3 days MARTHA ALVARES MD Jun 15, 2024 21:36
[2024-06-16] VITALS (9 sets, daily range): BP systolic 100–119; BP diastolic 33–52; PULSE 70–80; RESP 18–20; TEMP 97.8–98.5; O2SAT 96–99
[2024-06-16 05:41] LABS: Alanine Aminotransferase 37 U/L (7-40); Alkaline Phosphatase 126 U/L (46-116); Anion Gap 4 (5-15); Aspartate Aminotransferase 42 U/L (13-40); BUN/Creatinine Ratio 31.7 (10.0-20.0); Blood Urea Nitrogen 19 mg/dL (9-23); Calcium 8.1 mg/dL (8.7-10.4); Carbon Dioxide 29 mmol/L (20-31); Chloride 108 mmol/L (98-107); Glucose 134 mg/dL (74-106); Magnesium 1.8 mg/dL (1.6-2.6); Potassium 4.1 mmol/L (3.5-5.1); Sodium 141 mmol/L (136-145)
[2024-06-16 05:42] LABS: Albumin 2.1 g/dL (3.2-4.8); Bilirubin, Total 0.4 mg/dL (0.2-1.0); Phosphorus 3.1 mg/dL (2.4-5.1); Total Protein 3.7 g/dL (5.7-8.2)
--- NOTE | 2024-06-16 08:49 | DVHPN2 ---
Progress Note - Dictate Date Seen: Jun 16, 2024 Medical Necessity Reason Pt with a Central, PICC or Fol: Yes The following are medically ne: Central Line, Grewal Catheter Reason for grewal catheter: Strict I&O vital signs Vital Sign Date Time Temp Pulse Resp B/P (MAP) Pulse Ox O2 Delivery O2 Flow Rate FiO2 06/16/24 06:21 119/45 (69) 06/16/24 05:27 75 20 06/16/24 05:00 98.5 97 98.5 06/15/24 22:05 Room Air* 0 21 Total Intake and Output 06/15/24 06/15/24 06/16/24 15:00 23:00 07:00 Intake Total 1366 ml 1178 ml 1232 ml Output Total 1600 ml 750 ml Balance 1366 ml -422 ml 482 ml medications Current Medications Medications Dose Ordered Sig/Jason Route Start Time Stop Time Status Last Admin Dose Admin Ondansetron HCl 4 mg Q4HP PRN IV 05/22/24 15:00 06/06/24 02:47 4 MG Acetaminophen 650 mg Q6HP PRN PO 05/22/24 15:00 05/29/24 21:55 650 MG Citalopram Hydrobromide 20 mg DAILY PO 05/23/24 10:00 06/11/24 10:10 20 MG Prochlorperazine Edisylate 10 mg Q6HP PRN IV 05/23/24 12:00 06/04/24 12:42 10 MG Atorvastatin Calcium 20 mg DAILY PO 05/24/24 10:00 06/15/24 09:01 20 MG Nortriptyline HCl 50 mg HS PO 05/23/24 22:00 06/05/24 21:48 50 MG Tamsulosin HCl 0.4 mg QPM PO 05/23/24 18:00 06/11/24 18:05 0.4 MG Docusate Calcium 240 mg DAILY PO 06/03/24 12:33 06/03/24 19:44 240 MG Metoprolol Tartrate 10 mg BID PO 06/03/24 22:00 UNV Sennosides 8.6 mg DAILYP PO 06/03/24 12:33 06/15/24 09:01 8.6 MG Duloxetine HCl 60 mg DAILY PO 06/03/24 12:34 06/15/24 09:01 60 MG Metoprolol Tartrate 25 mg BID PO 06/03/24 22:00 Hold 06/03/24 22:43 25 MG Metoprolol Tartrate 5 mg Q4HP PRN IV 06/05/24 11:15 Hold Pantoprazole Sodium 40 mg DAILY IV 06/06/24 10:00 06/15/24 08:59 40 MG Amino Acids 0 ml @ 0 mls/hr PER PHARMACY IV 06/07/24 13:30 Diagnostic Test (Pha) 1 strip Q6HR 06/07/24 18:00 06/16/24 05:07 1 STRIP Insulin Human Regular FOLLOW SLIDING SCALE Q6HR SC 06/07/24 18:00 06/13/24 11:40 2 UNITS Dextrose 50 ml UD IV 06/07/24 14:15 Morphine Sulfate 2 mg Q4HPRN PRN IV 06/08/24 10:45 06/16/24 04:57 2 MG Acetaminophen 650 mg Q6HP PRN [place] 06/09/24 08:15 06/13/24 01:13 650 MG Lactated Ringer's 1,000 ml @ 100 mls/hr Q10H IV 06/09/24 10:00 06/16/24 02:57 100 MLS/HR Enoxaparin Sodium 100 mg Q12HR SC 06/09/24 22:00 06/15/24 09:02 100 MG Metoprolol Tartrate 5 mg BID IV 06/11/24 13:45 UNV Ceftriaxone Sodium 50 ml @ 100 mls/hr DAILY@1000 IV 06/12/24 11:00 06/15/24 08:59 100 MLS/HR Labetalol HCl 10 mg Q2HPRN PRN IV 06/12/24 10:45 06/14/24 04:15 10 MG Hydralazine HCl 20 mg Q6HP PRN IV 06/14/24 03:45 Diltiazem HCl 10 mg Q8H IV 06/14/24 14:45 06/16/24 06:22 10 MG Fat Emulsion Intravenous 100 ml/Sodium Acetate 10 meq/Potassium Acetate 50 meq/ Potassium Phosphate 44 meq/ Magnesium Sulfate 30 meq/ Multivitamins 10 ml/Chromium/ Copper/Manganese/ Zinc 1 ml/Amino Acids/Dextrose 1,308.5 ml @ 54 mls/hr [id number] IV 06/15/24 20:00 06/16/24 19:59 06/15/24 20:36 54 MLS/HR laboratory and microbiology Laboratory Tests 06/16/24 05:10 06/14/24 04:36 Test 06/16/24 05:10 Range/Units Serum Glucose 134 H 74-106 mg/dL Assessment/Plan s/p Laparotomy (found to have contained bowel perforation, abscess) Has Bowel movements In tele floor Had mechanical fall and found to have hip fracture. S/p ORIF (earlier during admission course) Patient is a 74-year-old gentleman who presented on May 22, 2024 for epigastric pain. It seems that he ate sandwich in this was followed by repeated abdominal pain and vomiting. He has been admitted with small-bowel obstruction. He also was found to have gallstones and gastric outlet obstruction. He has been seen by surgery and GI. He has been having NG tube. Patient does have history of paroxysmal AFib and is on Eliquis as outpatient. On 05/24 2024, the patient was found to have tachyarrhythmia and cardiology was involved for its evaluation and management. Telemetry revealed tachyarrhythmia in the rate of 150s. Tele was in favor of SVT. Patient was attached to the monitor and 6 mg of adenosine was given which resulted in breaking of the tachyarrhythmia inpatient been back to sinus rhythm. As per patient, he usually follows with Cardiology in [facility]. As per patient, he did have angiogram (cardiac catheterization some years ago and was told that it was normal findings). Lying flat in bed and not in acute distress. No JVD. Mucosa is pink and wet. No carotid bruit. No goiter. Lungs are clear to auscultation. No thrill/gallop. Abdomen is soft. Extremities do not reveal edema Past medical history includes atrial fibrillation (on Eliquis as outpatient), DJD, heart failure (diastolic), COPD, hypertension, hyperlipidemia, reported diabetes mellitus, obesity, old history of tonsillectomy and gastric bypass surgery. He is known to have kidney stones. Echocardiogram of January 2020 revealed ejection fraction of 60% and biatrial enlargement Troponin (high sensitive): 19 - 11 TSH: 3.28 CT of the abdomen and pelvis revealed: IMPRESSION: 1. Cholelithiasis with the gallbladder distended. 2. Postop changes to the stomach with a fluid-filled distended stomach and dilated fluid-filled small bowel findings suggest small bowel obstruction. 3. Multiple bilateral nonobstructing renal calculi. 4. Prosthesis in the right hip. Chest x-ray revealed: Frontal chest radiograph demonstrates no acute osseous or superficial soft tissue abnormalities. Enteric tube visualized overlying the plane of the stomach. The trachea is midline. The cardiac silhouette and mediastinum are within normal limits. No pneumothorax, pleural effusions, or consolidations. Partially visualized gaseous distended loops of bowel. Repeat chest xry revealed: IMPRESSION: 1. Stable appearance of the support lines and tubes. 2. Bibasilar airspace disease similar to prior study. Repeat chest xry revealed: IMPRESSION: Endotracheal projects 0.7 cm above the level of the gary. Recommend retraction. HIDA scan reported: IMPRESSION: 1. Findings may reflect chronic cholecystitis, cannot exclude acute cholecystitis due to lack of 30-60 minute images. KUB revealed: IMPRESSION: Findings concerning for small bowel obstruction versus ileus. Repeat KUB revealed: FINDINGS/IMPRESSION: Dilated loops of small bowel with gas and stool visualized in the colon. Findings appear improved compared to prior exam. Repeat KUB revealed: IMPRESSION: 1. There are air-filled dilated small bowel loops. Air and stool is seen within the colon. The findings appear mildly improved comparison to the prior study. The findings fairly stable and May relate to an ileus.. Clinical correlation and continued follow-up is recommended Repeat KUB revealed: Impression: 1. Nonobstructive bowel gas pattern. Repeat KUB revealed: Findings/ Impression: Postsurgical changes of the abdomen with skin lavern noted over the right hemiabdomen. Enteric tube is noted terminating within the stomach. There are gas-filled mildly distended small bowel loops which may be due to ileus with partial bowel obstruction not excluded. There is contrast noted within the nondistended large bowel. Bibasilar atelectasis. No acute bony abnormalities. Right total hip replacement with partially visualized intramedullary spedey and dynamic screw fixation of the left proximal femur Gallbladder ultrasound reported: FINDINGS: Examination is limited. The gallbladder appears distended. The gallbladder wall measures 2 mm in thickness, within normal limits. Possible sludge in the gallbladder. Negative reported sonographic valladares's sign. The common bile duct measures 6 mm in diameter, within normal limits. The liver measures at the upper limits of normal in size, at 16.4 cm in craniocaudal dimension. Heterogeneous echotexture of the liver. The pancreas is obscured by bowel gas. The right kidney measures 9.6 cm. There is no hydronephrosis. Limited evaluation of the right kidney. Echogenic focus, possible renal calculus at the midpole measuring 1.4 cm. The patient does have renal calculi on recent CT exam. IMPRESSION: 1. Limited examination as described above. Possible gallbladder sludge and distended gallbladder. No sonographic evidence of acute cholecystitis. 2. Additional nonacute findings as described above. HIDA scan revealed: Impression: 1. Unremarkable hepatobiliary study without evidence of acute cholecystitis. Left Hip Xry: FINDINGS/IMPRESSION: There is a displaced and impacted left intertrochanteric fracture. Patient is status post right hip arthroplasty. EKG revealed SVT Tele revealed SVT which later transitioned into sinus rhythm Echocardiogram revealed: Technically limited study secondary to poor acoustic windows. Left ventricle: Mild concentric left ventricular hypertrophy was seen. LVEF was 55-60%. Right ventricle was normal size with normal systolic function. Both atria were mildly dilated. Aortic valve was not well visualized. Aortic sclerosis with no stenosis was observed. Oyba-[id number] aortic insufficiency was observed. Mild mitral/tricuspid regurgitation was seen. Tricuspid valve was not well visualized. Right ventricular systolic pressure was assessed around 25 mm Hg. There was no pericardial effusion. Ascending aorta was 4.5 cm. Patient is a 74-year-old gentleman who presented with abdominal pain and is being managed for small bowel obstruction. He does have history of paroxysmal AFib. Has not been taking his medications regularly and this was followed with tachyarrhythmia. Tachyarrhythmia was in favor of SVT. SVT responded to adenosine Small-bowel obstruction Obesity History of gastric bypass Paroxysmal AFib SVT Status post adenosine management Diabetes mellitus Obesity, morbid Gallstone Renal stone s/p laparotomy bowel perforation Cardiac suggestion for management: For now, manage in tele Follow-up electrolytes and kidney function tests and correct abnormalities Keep potassium above 4 and magnesium above 2 Continue Cardizem Fluid resuscitation Surgery and GI follow up Long-term continuation of anticoagulation is suggested (for now patient on Lovenox) Further evaluation and management depends on the above and clinical course A total of 55 minutes was spent reviewing the patient record, examining the patient, making a diagnostic and therapeutic plan, discussing this plan with medical personnel, following up on diagnostic studies and following the patient for clinical stability excluding any and all procedures. At least 50% of this time was spent in direct, [id number] contact. Thank you for allowing me to participate in this patient's care. Further recommendations will depend on patient's clinical course. Please do not hesitate to contact me if you have any questions or concerns. This medical document was created using electronic medical record system with [employer] computerized dictation system. Although this document has been carefully reviewed, there may still be some phonetic and typographical errors. These areas are purely typographical due to the imperfection of the software programs, and do not reflect any compromise in the patient's medical care. Dietary Evaluation Review Comments: 1. advance diet as tolerated per MD 2. Consider EN/TPN if Pt remains NPO for 48 hours Expected Outcomes/Goals: 1. Pt will consume >75% estimated needs within 2-3 days Plan discussed with: Other (nurse) BROOKS PRITCHARD MD Jun 16, 2024 08:49
--- NOTE | 2024-06-16 11:20 | DVHPN2 ---
Progress Note - Dictate Date Seen: Jun 16, 2024 Medical Necessity Reason Pt with a Central, PICC or Fol: Yes The following are medically ne: Central Line, Babb Catheter vital signs Vital Sign Date Time Temp Pulse Resp B/P (MAP) Pulse Ox O2 Delivery O2 Flow Rate FiO2 06/16/24 10:13 71 18 109/41 06/16/24 09:00 98.4 96 98.4 06/15/24 22:05 Room Air* 0 21 Total Intake and Output 06/15/24 06/15/24 06/16/24 15:00 23:00 07:00 Intake Total 1366 ml 1178 ml 1232 ml Output Total 1600 ml 750 ml Balance 1366 ml -422 ml 482 ml medications Current Medications Medications Dose Ordered Sig/Jason Route Start Time Stop Time Status Last Admin Dose Admin Ondansetron HCl 4 mg Q4HP PRN IV 05/22/24 15:00 06/06/24 02:47 4 MG Acetaminophen 650 mg Q6HP PRN PO 05/22/24 15:00 05/29/24 21:55 650 MG Citalopram Hydrobromide 20 mg DAILY PO 05/23/24 10:00 06/11/24 10:10 20 MG Prochlorperazine Edisylate 10 mg Q6HP PRN IV 05/23/24 12:00 06/04/24 12:42 10 MG Atorvastatin Calcium 20 mg DAILY PO 05/24/24 10:00 06/15/24 09:01 20 MG Nortriptyline HCl 50 mg HS PO 05/23/24 22:00 06/05/24 21:48 50 MG Tamsulosin HCl 0.4 mg QPM PO 05/23/24 18:00 06/11/24 18:05 0.4 MG Docusate Calcium 240 mg DAILY PO 06/03/24 12:33 06/03/24 19:44 240 MG Metoprolol Tartrate 10 mg BID PO 06/03/24 22:00 UNV Sennosides 8.6 mg DAILYP PO 06/03/24 12:33 06/15/24 09:01 8.6 MG Duloxetine HCl 60 mg DAILY PO 06/03/24 12:34 06/15/24 09:01 60 MG Metoprolol Tartrate 25 mg BID PO 06/03/24 22:00 Hold 06/03/24 22:43 25 MG Metoprolol Tartrate 5 mg Q4HP PRN IV 06/05/24 11:15 Hold Pantoprazole Sodium 40 mg DAILY IV 06/06/24 10:00 06/16/24 10:12 40 MG Amino Acids 0 ml @ 0 mls/hr PER PHARMACY IV 06/07/24 13:30 Diagnostic Test (Pha) 1 strip Q6HR 06/07/24 18:00 06/16/24 05:07 1 STRIP Insulin Human Regular FOLLOW SLIDING SCALE Q6HR SC 06/07/24 18:00 06/13/24 11:40 2 UNITS Dextrose 50 ml UD IV 06/07/24 14:15 Morphine Sulfate 2 mg Q4HPRN PRN IV 06/08/24 10:45 06/16/24 10:13 2 MG Acetaminophen 650 mg Q6HP PRN FL 06/09/24 08:15 06/13/24 01:13 650 MG Enoxaparin Sodium 100 mg Q12HR SC 06/09/24 22:00 06/15/24 09:02 100 MG Metoprolol Tartrate 5 mg BID IV 06/11/24 13:45 UNV Ceftriaxone Sodium 50 ml @ 100 mls/hr DAILY@1000 IV 06/12/24 11:00 06/16/24 10:12 100 MLS/HR Labetalol HCl 10 mg Q2HPRN PRN IV 06/12/24 10:45 06/14/24 04:15 10 MG Hydralazine HCl 20 mg Q6HP PRN IV 06/14/24 03:45 Diltiazem HCl 10 mg Q8H IV 06/14/24 14:45 06/16/24 06:22 10 MG Fat Emulsion Intravenous 100 ml/Sodium Acetate 10 meq/Potassium Acetate 50 meq/ Potassium Phosphate 44 meq/ Magnesium Sulfate 30 meq/ Multivitamins 10 ml/Chromium/ Copper/Manganese/ Zinc 1 ml/Amino Acids/Dextrose 1,308.5 ml @ 54 mls/hr [id number] IV 06/15/24 20:00 06/16/24 19:59 06/15/24 20:36 54 MLS/HR Fat Emulsion Intravenous 100 ml/Sodium Chloride 10 meq/ Potassium Acetate 40 meq/Potassium Phosphate 50 meq/ Magnesium Sulfate 36 meq/ Multivitamins 10 ml/Chromium/ Copper/Manganese/ Zinc 1 ml/Amino Acids/Dextrose 1,353.8636 ml @ 56 mls/hr [id number] IV 06/16/24 20:00 06/17/24 19:59 Bumetanide 1 mg DAILY IV 06/16/24 11:15 06/20/24 11:14 UNV objective General Appearance: alert, no distress HEENT: EOMI, PERRLA, normal external inspect of ears, no icterus, no nasal drainage Neck: no carotid bruit, no jugular venous distention (JVD), no lymphadenopathy Chest: normal thorax Respiratory: clear to auscultation, normal air movement Cardiovascular: regular rate and rhythm, no diastolic murmur, no jugular venous distention (JVD), no rub, no systolic murmur Abdominal: soft, no hepatomegaly, no mass, no splenomegaly, no tenderness Genitourinary: grossly normal external Musculoskeletal: no joint tenderness, no swelling Extremities: normal pulses, no calf tenderness, no clubbing, no cyanosis, no edema Skin: no bruising, no jaundice, no rash Neurological: alert, No focal deficit laboratory and microbiology Laboratory Tests 06/16/24 05:10 06/14/24 04:36 Test 06/16/24 05:10 Range/Units Serum Glucose 134 H 74-106 mg/dL Problem List 1. Small bowel obstruction Monitor, surgical consult, GI consult, NPO 2. HLD Monitor 3. Persistent atrial fibrillation Monitor, full dose Lovenox 4. Obesity Monitor 5. Hx gastric bypass Monitor 6. Benign essential HTN Monitor, antihypertensives 7. Gallstones Monitor, surgical consult, GI consult, NPO, HIDA scan 8. Sepsis Monitor 9. Septic Shock Monitor 10. Acute renal failure Monitor, nephrology consult Assessment/Plan Subjective Patient is awake and alert. Objective Patient was downgraded to the telemetry floor. Patient apparently failed his swallow evaluation and he is currently on TPN and is NPO at this time. Patient has some serous fluid draining from his incision site. Patient may have a history of liver cirrhosis. Patient is status post exploratory laparotomy, lysis of adhesions, Dave-en-Y bowel revision, and status post colectomy for bowel perforation. Currently he is afebrile. Plan Continue antibiotics with Rocephin. Continue physical therapy. Patient will need SNF for outpatient rehab. Continue TPN for nutritional support. Reattempt swallow eval. Dietary Evaluation Review Comments: 1. advance diet as tolerated per MD 2. Consider EN/TPN if Pt remains NPO for 48 hours Expected Outcomes/Goals: 1. Pt will consume >75% estimated needs within 2-3 days Plan discussed with: Patient, Other TETO CRAMER NP Jun 16, 2024 11:19
[2024-06-16] MEDS: BUMETANIDE 1mg/4ml VIAL (0.25mg/ml) IV SCH (13:26)
--- NOTE | 2024-06-16 20:17 | DVHPN2 ---
Progress Note - Dictate Date Seen: Jun 16, 2024 Medical Necessity Reason Pt with a Central, PICC or Fol: Yes The following are medically ne: Central Line Reason for grewal catheter: Strict I&O Subjective Patient seen and examined at bedside. On room air. Overnight events reviewed. vital signs Vital Sign Date Time Temp Pulse Resp B/P (MAP) Pulse Ox O2 Delivery O2 Flow Rate FiO2 06/16/24 18:40 72 19 107/42 06/16/24 16:37 97.8 96 97.8 06/16/24 08:00 Nasal Cannula* 3 32 Total Intake and Output 06/15/24 06/15/24 06/16/24 15:00 23:00 07:00 Intake Total 1366 ml 1178 ml 1232 ml Output Total 1600 ml 750 ml Balance 1366 ml -422 ml 482 ml medications Current Medications Medications Dose Ordered Sig/Jason Route Start Time Stop Time Status Last Admin Dose Admin Ondansetron HCl 4 mg Q4HP PRN IV 05/22/24 15:00 06/06/24 02:47 4 MG Acetaminophen 650 mg Q6HP PRN PO 05/22/24 15:00 05/29/24 21:55 650 MG Citalopram Hydrobromide 20 mg DAILY PO 05/23/24 10:00 06/11/24 10:10 20 MG Prochlorperazine Edisylate 10 mg Q6HP PRN IV 05/23/24 12:00 06/04/24 12:42 10 MG Atorvastatin Calcium 20 mg DAILY PO 05/24/24 10:00 06/15/24 09:01 20 MG Nortriptyline HCl 50 mg HS PO 05/23/24 22:00 06/05/24 21:48 50 MG Tamsulosin HCl 0.4 mg QPM PO 05/23/24 18:00 06/11/24 18:05 0.4 MG Docusate Calcium 240 mg DAILY PO 06/03/24 12:33 06/03/24 19:44 240 MG Metoprolol Tartrate 10 mg BID PO 06/03/24 22:00 UNV Sennosides 8.6 mg DAILYP PO 06/03/24 12:33 06/15/24 09:01 8.6 MG Duloxetine HCl 60 mg DAILY PO 06/03/24 12:34 06/15/24 09:01 60 MG Metoprolol Tartrate 25 mg BID PO 06/03/24 22:00 Hold 06/03/24 22:43 25 MG Metoprolol Tartrate 5 mg Q4HP PRN IV 06/05/24 11:15 Hold Pantoprazole Sodium 40 mg DAILY IV 06/06/24 10:00 06/16/24 10:12 40 MG Amino Acids 0 ml @ 0 mls/hr PER PHARMACY IV 06/07/24 13:30 Diagnostic Test (Pha) 1 strip Q6HR 06/07/24 18:00 06/16/24 17:14 1 STRIP Insulin Human Regular FOLLOW SLIDING SCALE Q6HR SC 06/07/24 18:00 06/13/24 11:40 2 UNITS Dextrose 50 ml UD IV 06/07/24 14:15 Morphine Sulfate 2 mg Q4HPRN PRN IV 06/08/24 10:45 06/16/24 18:40 2 MG Acetaminophen 650 mg Q6HP PRN [place] 06/09/24 08:15 06/13/24 01:13 650 MG Enoxaparin Sodium 100 mg Q12HR SC 06/09/24 22:00 06/15/24 09:02 100 MG Metoprolol Tartrate 5 mg BID IV 06/11/24 13:45 UNV Ceftriaxone Sodium 50 ml @ 100 mls/hr DAILY@1000 IV 06/12/24 11:00 06/16/24 10:12 100 MLS/HR Labetalol HCl 10 mg Q2HPRN PRN IV 06/12/24 10:45 06/14/24 04:15 10 MG Hydralazine HCl 20 mg Q6HP PRN IV 06/14/24 03:45 Diltiazem HCl 10 mg Q8H IV 06/14/24 14:45 06/16/24 15:29 10 MG Fat Emulsion Intravenous 100 ml/Sodium Chloride 10 meq/ Potassium Acetate 40 meq/Potassium Phosphate 50 meq/ Magnesium Sulfate 36 meq/ Multivitamins 10 ml/Chromium/ Copper/Manganese/ Zinc 1 ml/Amino Acids/Dextrose 1,353.8636 ml @ 56 mls/hr [id number] IV 06/16/24 20:00 06/17/24 19:59 Bumetanide 1 mg DAILY IV 06/16/24 12:04 objective Gen.: Patient lying in bed in no apparent distress. He is breathing comfortably on room air. Head: Normocephalic, atraumatic Eyes: EOMI/PERRLA. Ears: Normal hearing. Normal anatomy. Neck/trachea: Trachea midline, supple. Nose: Normal external anatomy. Mouth: Moist mucous membranes. Chest: Decreased air entry bilaterally. No wheezing or rhonchi. Cardio vascular: Positive S1, positive S2. Regular rate and rhythm. Abdomen: Positive bowel sounds in all 4 quadrants. Soft, non-tender, non- distended. : Deferred. Rectal: Deferred Skin: Warm, dry. Extremities: 2+ radial pulses bilaterally. No lower extremity edema. Neuro: Awake, alert, oriented x3. No gross motor or sensory deficits. Cranial nerves II through XII intact. Gait not assessed. laboratory and microbiology Laboratory Tests 06/16/24 05:10 06/14/24 04:36 Test 06/16/24 05:10 Range/Units Serum Glucose 134 H 74-106 mg/dL Assessment/Plan Impression: Septic shock Acute hypoxic respiratory failure Acute kidney injury, resolved Small bowel obstruction, improving Atrial fibrillation Hx of gastric bypass (Dave-en-Y) Obesity, BMI 34.2 Atelectasis Events: Breathing on room air No respiratory distress. Continue antibiotics TPN for nutritional support. Head of bed elevation Aspiration precautions Monitor hemoglobin. LR at 100 ml/hr for IV fluid hydration Wound care. GI prophylaxis w/ Protonix DVT prophylaxis w/ therapeutic Lovenox Patient is s/p exploratory laparotomy with lysis of adhesions. Rest of plan as noted below. Plan: S/p central line placement. Needed for administration of pressors. S/p extubation, on room air. Antibiotics GI recommendations appreciated. Monitor WBC Hemoglobin - monitor Monitor renal function. Monitor electrolytes. Supplement as necessary. Monitor ins and outs. Creatinine trending down. Diet and lifestyle modifications discussed Obesity - complicates all care. GI/DVT prophylaxis. Prognosis: Poor given patient's multiple co-morbidities. Rest of plan per hospitalist and other consultants. Thank you S JENNA Mcnamara, for allowing me to participate in this patient's care. Further recommendations will depend on the patient's clinical course. Please do not hesitate to contact me if you have any questions or concerns. This medical document was created using an electronic medical record system with [employer] dictation system. Although these documentations are being carefully reviewed, there may still be some phonetic and typographical changes. The errors are purely typographical, due to imperfection on the software program, and do not reflect any compromise in the patient's medical care Dietary Evaluation Review Comments: 1. advance diet as tolerated per MD 2. Consider EN/TPN if Pt remains NPO for 48 hours Expected Outcomes/Goals: 1. Pt will consume >75% estimated needs within 2-3 days Plan discussed with: Patient, Other (NIRAV Viramontes) PRISCILLA CORREA MD Jun 16, 2024 20:17
--- NOTE | 2024-06-16 20:30 | DVHPN2 ---
Progress Note Date Seen: Jun 16, 2024 Medical Necessity Reason Pt with a Central, PICC or Fol: No The following are medically ne: Central Line, Babb Catheter Objective vital signs Vital Sign Date Time Temp Pulse Resp B/P (MAP) Pulse Ox O2 Delivery O2 Flow Rate FiO2 06/16/24 18:40 72 19 107/42 06/16/24 16:37 97.8 96 97.8 06/16/24 08:00 Nasal Cannula* 3 32 Total Intake and Output 06/15/24 06/15/24 06/16/24 15:00 23:00 07:00 Intake Total 1366 ml 1178 ml 1232 ml Output Total 1600 ml 750 ml Balance 1366 ml -422 ml 482 ml medications Current Medications Medications Dose Ordered Sig/Jason Route Start Time Stop Time Status Last Admin Dose Admin Ondansetron HCl 4 mg Q4HP PRN IV 05/22/24 15:00 06/06/24 02:47 4 MG Acetaminophen 650 mg Q6HP PRN PO 05/22/24 15:00 05/29/24 21:55 650 MG Citalopram Hydrobromide 20 mg DAILY PO 05/23/24 10:00 06/11/24 10:10 20 MG Prochlorperazine Edisylate 10 mg Q6HP PRN IV 05/23/24 12:00 06/04/24 12:42 10 MG Atorvastatin Calcium 20 mg DAILY PO 05/24/24 10:00 06/15/24 09:01 20 MG Nortriptyline HCl 50 mg HS PO 05/23/24 22:00 06/05/24 21:48 50 MG Tamsulosin HCl 0.4 mg QPM PO 05/23/24 18:00 06/11/24 18:05 0.4 MG Docusate Calcium 240 mg DAILY PO 06/03/24 12:33 06/03/24 19:44 240 MG Metoprolol Tartrate 10 mg BID PO 06/03/24 22:00 UNV Sennosides 8.6 mg DAILYP PO 06/03/24 12:33 06/15/24 09:01 8.6 MG Duloxetine HCl 60 mg DAILY PO 06/03/24 12:34 06/15/24 09:01 60 MG Metoprolol Tartrate 25 mg BID PO 06/03/24 22:00 Hold 06/03/24 22:43 25 MG Metoprolol Tartrate 5 mg Q4HP PRN IV 06/05/24 11:15 Hold Pantoprazole Sodium 40 mg DAILY IV 06/06/24 10:00 06/16/24 10:12 40 MG Amino Acids 0 ml @ 0 mls/hr PER PHARMACY IV 06/07/24 13:30 Diagnostic Test (Pha) 1 strip Q6HR 06/07/24 18:00 06/16/24 17:14 1 STRIP Insulin Human Regular FOLLOW SLIDING SCALE Q6HR SC 06/07/24 18:00 06/13/24 11:40 2 UNITS Dextrose 50 ml UD IV 06/07/24 14:15 Morphine Sulfate 2 mg Q4HPRN PRN IV 06/08/24 10:45 06/16/24 18:40 2 MG Acetaminophen 650 mg Q6HP PRN MD 06/09/24 08:15 06/13/24 01:13 650 MG Enoxaparin Sodium 100 mg Q12HR SC 06/09/24 22:00 06/15/24 09:02 100 MG Metoprolol Tartrate 5 mg BID IV 06/11/24 13:45 UNV Ceftriaxone Sodium 50 ml @ 100 mls/hr DAILY@1000 IV 06/12/24 11:00 06/16/24 10:12 100 MLS/HR Labetalol HCl 10 mg Q2HPRN PRN IV 06/12/24 10:45 06/14/24 04:15 10 MG Hydralazine HCl 20 mg Q6HP PRN IV 06/14/24 03:45 Diltiazem HCl 10 mg Q8H IV 06/14/24 14:45 06/16/24 15:29 10 MG Fat Emulsion Intravenous 100 ml/Sodium Chloride 10 meq/ Potassium Acetate 40 meq/Potassium Phosphate 50 meq/ Magnesium Sulfate 36 meq/ Multivitamins 10 ml/Chromium/ Copper/Manganese/ Zinc 1 ml/Amino Acids/Dextrose 1,353.8636 ml @ 56 mls/hr [id number] IV 06/16/24 20:00 06/17/24 19:59 Bumetanide 1 mg DAILY IV 06/16/24 12:04 laboratory and microbiology Laboratory Tests 06/16/24 05:10 06/14/24 04:36 Test 06/16/24 05:10 Range/Units Serum Glucose 134 H 74-106 mg/dL Microbiology Date/Time Source Procedure Growth Status 06/09/24 18:42 Lung Pending Resulted 06/09/24 18:42 Lung Pending Resulted 06/09/24 18:42 Lung Pending Resulted 06/09/24 18:42 Lung Pending Resulted 06/09/24 18:42 Lung - Final See Separate Report... Resulted 06/09/24 18:42 Bronchial Washings Gram Stain - Final Complete 06/09/24 18:42 Respiratory Culture - Final Escherichia coli Complete Problem List/Assessment/Plan Problem List/Assessment/Plan AFEBRILE VSS ABD SOFT LESS DISTENDED BM + RECTAL TUBE IN PLACE WBC TRENDING DOWN URINE OUTPUT IMPROVED CONDITION BETTER CONTINUE SUPPORTIVE CARE NURSE AT BEDSIDE KEEP NPO FAILED SWALLOW TEST ATTEMPT SWALLOW TEST AGAIN AM Plan discussed with: Patient My Orders My Orders Orders - MARTHA ALVARES MD Procedure Category Date Status Time Amino Acid PHA 06/16/24 In Process Infusion... W/Fat 20:00 Comprehensive LAB 06/17/24 Verified Metabolic Panel 04:00 Magnesium LAB 06/17/24 Verified 04:00 Phosphorus LAB 06/17/24 Verified 04:00 Tpn Per Pharmacy [facility] 06/16/24 In Process 20:00 Dietary Evaluation Review Comments: 1. advance diet as tolerated per MD 2. Consider EN/TPN if Pt remains NPO for 48 hours Expected Outcomes/Goals: 1. Pt will consume >75% estimated needs within 2-3 days MARTHA ALVARES MD Jun 16, 2024 20:30
[2024-06-16] MEDS: TPN PER PHARMACY IV NR (20:47)
[2024-06-17] VITALS (11 sets, daily range): BP systolic 100–163; BP diastolic 32–67; PULSE 64–79; RESP 16–21; TEMP 97.9–98.9; O2SAT 94–98
--- NOTE | 2024-06-17 05:44 | DVHPN2 ---
Progress Note - Dictate Date Seen: Jun 17, 2024 Medical Necessity Reason Pt with a Central, PICC or Fol: No The following are medically ne: Central Line Reason for grewal catheter: Strict I&O vital signs Vital Sign Date Time Temp Pulse Resp B/P (MAP) Pulse Ox O2 Delivery O2 Flow Rate FiO2 06/17/24 05:00 97.9 74 18 127/39 (68) 97 97.9 06/16/24 20:00 Nasal Cannula* 3 32 Total Intake and Output 06/16/24 06/16/24 06/17/24 15:00 23:00 07:00 Intake Total 50 ml 0 ml 0 ml Output Total 1350 ml 2600 ml Balance 50 ml -1350 ml -2600 ml medications Current Medications Medications Dose Ordered Sig/Jason Route Start Time Stop Time Status Last Admin Dose Admin Ondansetron HCl 4 mg Q4HP PRN IV 05/22/24 15:00 06/06/24 02:47 4 MG Acetaminophen 650 mg Q6HP PRN PO 05/22/24 15:00 05/29/24 21:55 650 MG Citalopram Hydrobromide 20 mg DAILY PO 05/23/24 10:00 06/11/24 10:10 20 MG Prochlorperazine Edisylate 10 mg Q6HP PRN IV 05/23/24 12:00 06/04/24 12:42 10 MG Atorvastatin Calcium 20 mg DAILY PO 05/24/24 10:00 06/15/24 09:01 20 MG Nortriptyline HCl 50 mg HS PO 05/23/24 22:00 06/05/24 21:48 50 MG Tamsulosin HCl 0.4 mg QPM PO 05/23/24 18:00 06/11/24 18:05 0.4 MG Docusate Calcium 240 mg DAILY PO 06/03/24 12:33 06/03/24 19:44 240 MG Metoprolol Tartrate 10 mg BID PO 06/03/24 22:00 UNV Sennosides 8.6 mg DAILYP PO 06/03/24 12:33 06/15/24 09:01 8.6 MG Duloxetine HCl 60 mg DAILY PO 06/03/24 12:34 06/15/24 09:01 60 MG Metoprolol Tartrate 25 mg BID PO 06/03/24 22:00 Hold 10/3/24 22:43 25 MG Metoprolol Tartrate 5 mg Q4HP PRN IV 06/05/24 11:15 Hold Pantoprazole Sodium 40 mg DAILY IV 06/06/24 10:00 06/16/24 10:12 40 MG Amino Acids 0 ml @ 0 mls/hr PER PHARMACY IV 06/07/24 13:30 Diagnostic Test (Pha) 1 strip Q6HR 06/07/24 18:00 06/16/24 23:34 1 STRIP Insulin Human Regular FOLLOW SLIDING SCALE Q6HR SC 06/07/24 18:00 06/13/24 11:40 2 UNITS Dextrose 50 ml UD IV 06/07/24 14:15 Morphine Sulfate 2 mg Q4HPRN PRN IV 06/08/24 10:45 06/17/24 04:04 2 MG Acetaminophen 650 mg Q6HP PRN CA 06/09/24 08:15 06/13/24 01:13 650 MG Enoxaparin Sodium 100 mg Q12HR SC 06/09/24 22:00 06/16/24 21:21 100 MG Metoprolol Tartrate 5 mg BID IV 06/11/24 13:45 UNV Ceftriaxone Sodium 50 ml @ 100 mls/hr DAILY@1000 IV 06/12/24 11:00 06/16/24 10:12 100 MLS/HR Labetalol HCl 10 mg Q2HPRN PRN IV 06/12/24 10:45 06/14/24 04:15 10 MG Hydralazine HCl 20 mg Q6HP PRN IV 06/14/24 03:45 Diltiazem HCl 10 mg Q8H IV 06/14/24 14:45 06/16/24 22:31 10 MG Fat Emulsion Intravenous 100 ml/Sodium Chloride 10 meq/ Potassium Acetate 40 meq/Potassium Phosphate 50 meq/ Magnesium Sulfate 36 meq/ Multivitamins 10 ml/Chromium/ Copper/Manganese/ Zinc 1 ml/Amino Acids/Dextrose 1,353.8636 ml @ 56 mls/hr [id number] IV 06/16/24 20:00 06/17/24 19:59 06/16/24 20:47 56 MLS/HR Bumetanide 1 mg DAILY IV 06/16/24 12:04 objective General Appearance: alert, no distress HEENT: EOMI, PERRLA, normal external inspect of ears, no icterus, no nasal drainage Neck: no carotid bruit, no jugular venous distention (JVD), no lymphadenopathy Chest: normal thorax Respiratory: clear to auscultation, normal air movement Cardiovascular: regular rate and rhythm, no diastolic murmur, no jugular venous distention (JVD), no rub, no systolic murmur Abdominal: soft, no hepatomegaly, no mass, no splenomegaly, no tenderness Genitourinary: grossly normal external Musculoskeletal: no joint tenderness, no swelling Extremities: normal pulses, no calf tenderness, no clubbing, no cyanosis, no edema Skin: no bruising, no jaundice, no rash Neurological: alert, No focal deficit laboratory and microbiology Laboratory Tests 06/16/24 05:10 06/14/24 04:36 Test 06/16/24 05:10 Range/Units Serum Glucose 134 H 74-106 mg/dL Problem List 1. Small bowel obstruction Monitor, surgical consult, GI consult, NPO 2. HLD Monitor 3. Persistent atrial fibrillation Monitor, full dose Lovenox 4. Obesity Monitor 5. Hx gastric bypass Monitor 6. Benign essential HTN Monitor, antihypertensives 7. Gallstones Monitor, surgical consult, GI consult, NPO, HIDA scan 8. Sepsis Monitor 9. Septic Shock Monitor 10. Acute renal failure Monitor, nephrology consult Assessment/Plan Subjective Patient is awake and alert. Objective Patient's hemoglobin is 7.1. Patient is refusing diuretics at this time. Patient is having serous output near his incisional site. Per surgeon patient has ascites. Abdominal x-ray shows ileus. Chest x-ray has no acute findings. Patient remains on TPN. Repeat swallow eval is pending. Plan Continue current treatment. Hemoglobin is 7.1. Transfuse 1 unit packed red blood cells. Repeat labs ordered for a.m. Continue physical therapy. DC planning to correction facility once patient is able to tolerate oral diet. Dietary Evaluation Review Comments: 1. advance diet as tolerated per MD 2. Consider EN/TPN if Pt remains NPO for 48 hours Expected Outcomes/Goals: 1. Pt will consume >75% estimated needs within 2-3 days Plan discussed with: Patient, Other TETO CRAMER [employer]PARTMENT OF SOCIOLOGY CHAIR Jun 17, 2024 05:44
[2024-06-17 06:33] LABS: Basophils # (auto) 0 10 ^3/uL (0-0.2); Eosinophils # (auto) 0.2 10 ^3/uL (0-0.8); Lymphocytes # (auto) 0.6 10 ^3/uL (0.4-5.4); Lymphocytes % (auto) 11.3 % (10.0-50.0); Mean Corpuscular Volume 89.2 fL (80.0-100.0); Monocytes # (auto) 0.4 10 ^3/uL (0-1.3); Red Cell Distribution Width 19.2 % (11.8-14.3)
[2024-06-17 06:35] LABS: Basophils % (auto) 0.5 % (0.0-2.0); Eosinophils % (auto) 2.9 % (0.0-7.0); Hematocrit 21.8 % (41.0-53.0); Hemoglobin 7.1 g/dL (13.5-17.5); Mean Corpuscular Hemoglobin 29.3 pg (28.0-32.0); Mean Corpuscular Hgb Conc. 32.8 g/dL (32.0-36.0); Monocytes % (auto) 6.6 % (0.0-12.0); Neutrophils # (auto) 4.5 10 ^3/uL (1.6-8.6); Neutrophils % (auto) 78.7 % (37.0-80.0); Platelet Count (auto) 169 10^3/uL (140-450); Red Blood Cells 2.44 10^6/uL (4.5-5.90); White Blood Cell 5.7 10^3/uL (4.4-10.8)
[2024-06-17 06:40] LABS: Alanine Aminotransferase 53 U/L (7-40); Albumin 2.2 g/dL (3.2-4.8); Alkaline Phosphatase 156 U/L (46-116); Anion Gap 4 (5-15); Aspartate Aminotransferase 58 U/L (13-40); BUN/Creatinine Ratio 33.3 (10.0-20.0); Bilirubin, Total 0.3 mg/dL (0.2-1.0); Blood Urea Nitrogen 20 mg/dL (9-23); Calcium 8.1 mg/dL (8.7-10.4); Carbon Dioxide 30 mmol/L (20-31); Chloride 106 mmol/L (98-107); Glucose 115 mg/dL (74-106); Magnesium 1.9 mg/dL (1.6-2.6); Phosphorus 3.6 mg/dL (2.4-5.1); Sodium 140 mmol/L (136-145); Total Protein 3.9 g/dL (5.7-8.2)
--- NOTE | 2024-06-17 08:09 | DVHPN2 ---
Progress Note - Dictate Date Seen: Jun 17, 2024 Medical Necessity Reason Pt with a Central, PICC or Fol: No The following are medically ne: Central Line Reason for grewal catheter: Strict I&O vital signs Vital Sign Date Time Temp Pulse Resp B/P (MAP) Pulse Ox O2 Delivery O2 Flow Rate FiO2 06/17/24 05:00 97.9 74 18 127/39 (68) 97 97.9 06/16/24 20:00 Nasal Cannula* 3 32 Total Intake and Output 06/16/24 06/16/24 06/17/24 15:00 23:00 07:00 Intake Total 50 ml 0 ml 0 ml Output Total 1350 ml 2600 ml Balance 50 ml -1350 ml -2600 ml medications Current Medications Medications Dose Ordered Sig/Jason Route Start Time Stop Time Status Last Admin Dose Admin Ondansetron HCl 4 mg Q4HP PRN IV 05/22/24 15:00 06/06/24 02:47 4 MG Acetaminophen 650 mg Q6HP PRN PO 05/22/24 15:00 05/29/24 21:55 650 MG Citalopram Hydrobromide 20 mg DAILY PO 05/23/24 10:00 06/11/24 10:10 20 MG Prochlorperazine Edisylate 10 mg Q6HP PRN IV 05/23/24 12:00 06/04/24 12:42 10 MG Atorvastatin Calcium 20 mg DAILY PO 05/24/24 10:00 06/15/24 09:01 20 MG Nortriptyline HCl 50 mg HS PO 05/23/24 22:00 06/05/24 21:48 50 MG Tamsulosin HCl 0.4 mg QPM PO 05/23/24 18:00 06/11/24 18:05 0.4 MG Docusate Calcium 240 mg DAILY PO 06/03/24 12:33 06/03/24 19:44 240 MG Metoprolol Tartrate 10 mg BID PO 06/03/24 22:00 UNV Sennosides 8.6 mg DAILYP PO 06/03/24 12:33 06/15/24 09:01 8.6 MG Duloxetine HCl 60 mg DAILY PO 06/03/24 12:34 06/15/24 09:01 60 MG Metoprolol Tartrate 25 mg BID PO 06/03/24 22:00 Hold 10/3/24 22:43 25 MG Metoprolol Tartrate 5 mg Q4HP PRN IV 06/05/24 11:15 Hold Pantoprazole Sodium 40 mg DAILY IV 06/06/24 10:00 06/16/24 10:12 40 MG Amino Acids 0 ml @ 0 mls/hr PER PHARMACY IV 06/07/24 13:30 Diagnostic Test (Pha) 1 strip Q6HR 06/07/24 18:00 06/17/24 06:14 1 STRIP Insulin Human Regular FOLLOW SLIDING SCALE Q6HR SC 06/07/24 18:00 06/13/24 11:40 2 UNITS Dextrose 50 ml UD IV 06/07/24 14:15 Morphine Sulfate 2 mg Q4HPRN PRN IV 06/08/24 10:45 06/17/24 04:04 2 MG Acetaminophen 650 mg Q6HP PRN AR 06/09/24 08:15 06/13/24 01:13 650 MG Enoxaparin Sodium 100 mg Q12HR SC 06/09/24 22:00 06/16/24 21:21 100 MG Metoprolol Tartrate 5 mg BID IV 06/11/24 13:45 UNV Ceftriaxone Sodium 50 ml @ 100 mls/hr DAILY@1000 IV 06/12/24 11:00 06/16/24 10:12 100 MLS/HR Labetalol HCl 10 mg Q2HPRN PRN IV 06/12/24 10:45 06/14/24 04:15 10 MG Hydralazine HCl 20 mg Q6HP PRN IV 06/14/24 03:45 Diltiazem HCl 10 mg Q8H IV 06/14/24 14:45 06/17/24 06:16 10 MG Fat Emulsion Intravenous 100 ml/Sodium Chloride 10 meq/ Potassium Acetate 40 meq/Potassium Phosphate 50 meq/ Magnesium Sulfate 36 meq/ Multivitamins 10 ml/Chromium/ Copper/Manganese/ Zinc 1 ml/Amino Acids/Dextrose 1,353.8636 ml @ 56 mls/hr [id number] IV 06/16/24 20:00 06/17/24 19:59 06/16/24 20:47 56 MLS/HR Bumetanide 1 mg DAILY IV 06/16/24 12:04 laboratory and microbiology Laboratory Tests 06/17/24 05:45 Test 06/17/24 05:45 Range/Units Serum Glucose 115 H 74-106 mg/dL Assessment/Plan s/p Laparotomy (found to have contained bowel perforation, abscess) Has Bowel movements In tele floor Had mechanical fall and found to have hip fracture. S/p ORIF (earlier during admission course) Patient is a 74-year-old gentleman who presented on May 22, 2024 for epigastric pain. It seems that he ate sandwich in this was followed by repeated abdominal pain and vomiting. He has been admitted with small-bowel obstruction. He also was found to have gallstones and gastric outlet obstruction. He has been seen by surgery and GI. He has been having NG tube. Patient does have history of paroxysmal AFib and is on Eliquis as outpatient. On 05/24 2024, the patient was found to have tachyarrhythmia and cardiology was involved for its evaluation and management. Telemetry revealed tachyarrhythmia in the rate of 150s. Tele was in favor of SVT. Patient was attached to the monitor and 6 mg of adenosine was given which resulted in breaking of the tachyarrhythmia inpatient been back to sinus rhythm. As per patient, he usually follows with Cardiology in [facility]. As per patient, he did have angiogram (cardiac catheterization some years ago and was told that it was normal findings). Lying flat in bed and not in acute distress. No JVD. Mucosa is pink and wet. No carotid bruit. No goiter. Lungs are clear to auscultation. No thrill/gallop. Abdomen is soft. Extremities do not reveal edema Past medical history includes atrial fibrillation (on Eliquis as outpatient), DJD, heart failure (diastolic), COPD, hypertension, hyperlipidemia, reported diabetes mellitus, obesity, old history of tonsillectomy and gastric bypass surgery. He is known to have kidney stones. Echocardiogram of January 2020 revealed ejection fraction of 60% and biatrial enlargement Troponin (high sensitive): 19 - 11 TSH: 3.28 CT of the abdomen and pelvis revealed: IMPRESSION: 1. Cholelithiasis with the gallbladder distended. 2. Postop changes to the stomach with a fluid-filled distended stomach and dilated fluid-filled small bowel findings suggest small bowel obstruction. 3. Multiple bilateral nonobstructing renal calculi. 4. Prosthesis in the right hip. Chest x-ray revealed: Frontal chest radiograph demonstrates no acute osseous or superficial soft tissue abnormalities. Enteric tube visualized overlying the plane of the stomach. The trachea is midline. The cardiac silhouette and mediastinum are within normal limits. No pneumothorax, pleural effusions, or consolidations. Partially visualized gaseous distended loops of bowel. Repeat chest xry revealed: IMPRESSION: 1. Stable appearance of the support lines and tubes. 2. Bibasilar airspace disease similar to prior study. Repeat chest xry revealed: IMPRESSION: Endotracheal projects 0.7 cm above the level of the gary. Recommend retraction. HIDA scan reported: IMPRESSION: 1. Findings may reflect chronic cholecystitis, cannot exclude acute cholecystitis due to lack of 30-60 minute images. KUB revealed: IMPRESSION: Findings concerning for small bowel obstruction versus ileus. Repeat KUB revealed: FINDINGS/IMPRESSION: Dilated loops of small bowel with gas and stool visualized in the colon. Findings appear improved compared to prior exam. Repeat KUB revealed: IMPRESSION: 1. There are air-filled dilated small bowel loops. Air and stool is seen within the colon. The findings appear mildly improved comparison to the prior study. The findings fairly stable and May relate to an ileus.. Clinical correlation and continued follow-up is recommended Repeat KUB revealed: Impression: 1. Nonobstructive bowel gas pattern. Repeat KUB revealed: Findings/ Impression: Postsurgical changes of the abdomen with skin lavern noted over the right hemiabdomen. Enteric tube is noted terminating within the stomach. There are gas-filled mildly distended small bowel loops which may be due to ileus with partial bowel obstruction not excluded. There is contrast noted within the nondistended large bowel. Bibasilar atelectasis. No acute bony abnormalities. Right total hip replacement with partially visualized intramedullary speedy and dynamic screw fixation of the left proximal femur Gallbladder ultrasound reported: FINDINGS: Examination is limited. The gallbladder appears distended. The gallbladder wall measures 2 mm in thickness, within normal limits. Possible sludge in the gallbladder. Negative reported sonographic valladares's sign. The common bile duct measures 6 mm in diameter, within normal limits. The liver measures at the upper limits of normal in size, at 16.4 cm in craniocaudal dimension. Heterogeneous echotexture of the liver. The pancreas is obscured by bowel gas. The right kidney measures 9.6 cm. There is no hydronephrosis. Limited evaluation of the right kidney. Echogenic focus, possible renal calculus at the midpole measuring 1.4 cm. The patient does have renal calculi on recent CT exam. IMPRESSION: 1. Limited examination as described above. Possible gallbladder sludge and distended gallbladder. No sonographic evidence of acute cholecystitis. 2. Additional nonacute findings as described above. HIDA scan revealed: Impression: 1. Unremarkable hepatobiliary study without evidence of acute cholecystitis. Left Hip Xry: FINDINGS/IMPRESSION: There is a displaced and impacted left intertrochanteric fracture. Patient is status post right hip arthroplasty. EKG revealed SVT Tele revealed SVT which later transitioned into sinus rhythm Echocardiogram revealed: Technically limited study secondary to poor acoustic windows. Left ventricle: Mild concentric left ventricular hypertrophy was seen. LVEF was 55-60%. Right ventricle was normal size with normal systolic function. Both atria were mildly dilated. Aortic valve was not well visualized. Aortic sclerosis with no stenosis was observed. [id number] aortic insufficiency was observed. Mild mitral/tricuspid regurgitation was seen. Tricuspid valve was not well visualized. Right ventricular systolic pressure was assessed around 25 mm Hg. There was no pericardial effusion. Ascending aorta was 4.5 cm. Patient is a 74-year-old gentleman who presented with abdominal pain and is being managed for small bowel obstruction. He does have history of paroxysmal AFib. Has not been taking his medications regularly and this was followed with tachyarrhythmia. Tachyarrhythmia was in favor of SVT. SVT responded to adenosine Small-bowel obstruction Obesity History of gastric bypass Paroxysmal AFib SVT Status post adenosine management Diabetes mellitus Obesity, morbid Gallstone Renal stone s/p laparotomy bowel perforation Cardiac suggestion for management: For now, manage in tele Follow-up electrolytes and kidney function tests and correct abnormalities Keep potassium above 4 and magnesium above 2 Continue Cardizem Fluid resuscitation Surgery and GI follow up Long-term continuation of anticoagulation is suggested (for now patient on Lovenox) Further evaluation and management depends on the above and clinical course A total of 55 minutes was spent reviewing the patient record, examining the patient, making a diagnostic and therapeutic plan, discussing this plan with medical personnel, following up on diagnostic studies and following the patient for clinical stability excluding any and all procedures. At least 50% of this time was spent in direct, [id number] contact. Thank you for allowing me to participate in this patient's care. Further recommendations will depend on patient's clinical course. Please do not hesitate to contact me if you have any questions or concerns. This medical document was created using electronic medical record system with [employer] computerized dictation system. Although this document has been carefully reviewed, there may still be some phonetic and typographical errors. These areas are purely typographical due to the imperfection of the software programs, and do not reflect any compromise in the patient's medical care. Dietary Evaluation Review Comments: 1. advance diet as tolerated per MD 2. Consider EN/TPN if Pt remains NPO for 48 hours Expected Outcomes/Goals: 1. Pt will consume >75% estimated needs within 2-3 days Plan discussed with: Other (nurse) BROOKS PRITCHARD MD Jun 17, 2024 08:09
--- NOTE | 2024-06-17 08:14 | DVH ---
EXAM: XY CHEST XRAY 1 VIEW Indication:f/u Technique: Single frontal view of the chest was obtained Comparison: XY CHEST PORTABLE on DOS: 06/14/24, XY CHEST XRAY 1 VIEW on DOS: 06/11/24, XY CHEST XRAY 1 VIEW on DOS: 06/08/24, XY CHEST PORTABLE on DOS: 06/07/24, XY CHEST XRAY 1 VIEW on DOS: 06/05/24 FINDINGS: Lines and Tubes: Interval removal of endotracheal and enteric tube compared to prior exam. Right inte rnal jugular central venous catheter tip projects over the superior vena cava. Lungs: No focal consolidation. Pleura: No effusion. No pneumothorax. Cardiomediastinal contours: Unremarkable Bones: No acute osseous abnormality. IMPRESSION: Interval removal of endotracheal and enteric tube compared to prior exam.No acute cardiopulmonary dis ease.
--- NOTE | 2024-06-17 08:19 | DVH ---
Date: 06/17/2024 07:40 AM Examination: XY ABDOMEN 2 VIEW History: eval ileus Comparison: 06/12/2024 TECHNIQUE: Frontal views of the abdomen was obtained. FINDINGS: Mildly dilated loops of small bowel and colon again visualized suggestive of ileus. The lung bases are unremarkable. Status post right hip arthroplasty. Intramedullary speedy and screw fixation is visualized with left in tertrochanteric fracture. IMPRESSION: Findings suggestive of ileus.
--- NOTE | 2024-06-17 11:45 | DVHPN2 ---
Progress Note Date Seen: Jun 17, 2024 Medical Necessity Reason Pt with a Central, PICC or Fol: No The following are medically ne: Central Line Reason for grewal catheter: Strict I&O Objective vital signs Vital Sign Date Time Temp Pulse Resp B/P (MAP) Pulse Ox O2 Delivery O2 Flow Rate FiO2 06/17/24 09:37 66 21 145/61 06/17/24 09:00 98.9 98 98.9 06/16/24 20:00 Nasal Cannula* 3 32 Total Intake and Output 06/16/24 06/16/24 06/17/24 15:00 23:00 07:00 Intake Total 50 ml 0 ml 0 ml Output Total 1350 ml 2600 ml Balance 50 ml -1350 ml -2600 ml medications Current Medications Medications Dose Ordered Sig/Jason Route Start Time Stop Time Status Last Admin Dose Admin Ondansetron HCl 4 mg Q4HP PRN IV 05/22/24 15:00 06/06/24 02:47 4 MG Acetaminophen 650 mg Q6HP PRN PO 05/22/24 15:00 05/29/24 21:55 650 MG Citalopram Hydrobromide 20 mg DAILY PO 05/23/24 10:00 06/11/24 10:10 20 MG Prochlorperazine Edisylate 10 mg Q6HP PRN IV 05/23/24 12:00 06/04/24 12:42 10 MG Atorvastatin Calcium 20 mg DAILY PO 05/24/24 10:00 06/15/24 09:01 20 MG Nortriptyline HCl 50 mg HS PO 05/23/24 22:00 06/05/24 21:48 50 MG Tamsulosin HCl 0.4 mg QPM PO 05/23/24 18:00 06/11/24 18:05 0.4 MG Docusate Calcium 240 mg DAILY PO 06/03/24 12:33 06/03/24 19:44 240 MG Metoprolol Tartrate 10 mg BID PO 06/03/24 22:00 UNV Sennosides 8.6 mg DAILYP PO 06/03/24 12:33 06/15/24 09:01 8.6 MG Duloxetine HCl 60 mg DAILY PO 06/03/24 12:34 06/15/24 09:01 60 MG Metoprolol Tartrate 25 mg BID PO 06/03/24 22:00 Hold 06/03/24 22:43 25 MG Metoprolol Tartrate 5 mg Q4HP PRN IV 06/05/24 11:15 Hold Pantoprazole Sodium 40 mg DAILY IV 06/06/24 10:00 06/17/24 09:36 40 MG Amino Acids 0 ml @ 0 mls/hr PER PHARMACY IV 06/07/24 13:30 Diagnostic Test (Pha) 1 strip Q6HR 06/07/24 18:00 06/17/24 06:14 1 STRIP Insulin Human Regular FOLLOW SLIDING SCALE Q6HR SC 06/07/24 18:00 06/13/24 11:40 2 UNITS Dextrose 50 ml UD IV 06/07/24 14:15 Morphine Sulfate 2 mg Q4HPRN PRN IV 06/08/24 10:45 06/17/24 09:37 2 MG Acetaminophen 650 mg Q6HP PRN [place] 06/09/24 08:15 06/13/24 01:13 650 MG Enoxaparin Sodium 100 mg Q12HR SC 06/09/24 22:00 06/16/24 21:21 100 MG Metoprolol Tartrate 5 mg BID IV 06/11/24 13:45 UNV Ceftriaxone Sodium 50 ml @ 100 mls/hr DAILY@1000 IV 06/12/24 11:00 06/17/24 09:36 100 MLS/HR Labetalol HCl 10 mg Q2HPRN PRN IV 06/12/24 10:45 06/14/24 04:15 10 MG Hydralazine HCl 20 mg Q6HP PRN IV 06/14/24 03:45 Diltiazem HCl 10 mg Q8H IV 06/14/24 14:45 06/17/24 06:16 10 MG Fat Emulsion Intravenous 100 ml/Sodium Chloride 10 meq/ Potassium Acetate 40 meq/Potassium Phosphate 50 meq/ Magnesium Sulfate 36 meq/ Multivitamins 10 ml/Chromium/ Copper/Manganese/ Zinc 1 ml/Amino Acids/Dextrose 1,353.8636 ml @ 56 mls/hr [id number] IV 06/16/24 20:00 06/17/24 19:59 06/16/24 20:47 56 MLS/HR Bumetanide 1 mg DAILY IV 06/16/24 12:04 laboratory and microbiology Laboratory Tests 06/17/24 05:45 Test 06/17/24 05:45 Range/Units Serum Glucose 115 H 74-106 mg/dL Microbiology Date/Time Source Procedure Growth Status 06/09/24 18:42 Lung Pending Resulted 06/09/24 18:42 Lung Pending Resulted 06/09/24 18:42 Lung Pending Resulted 06/09/24 18:42 Lung Pending Resulted 06/09/24 18:42 Lung - Final See Separate Report... Resulted 06/09/24 18:42 Bronchial Washings Gram Stain - Final Complete 06/09/24 18:42 Respiratory Culture - Final Escherichia coli Complete Problem List/Assessment/Plan Problem List/Assessment/Plan AFEBRILE VSS ABD SOFT LESS DISTENDED RECTAL TUBE REMOVED NO BM FLATUS + WBC TRENDING DOWN URINE OUTPUT IMPROVED CONDITION BETTER CONTINUE SUPPORTIVE CARE NURSE AT BEDSIDE KEEP NPO FAILED SWALLOW TEST ATTEMPT SWALLOW TEST AGAIN TODAY Plan discussed with: Patient My Orders My Orders Orders - MARTHA ALVARES MD Procedure Category Date Status Time Communication Order ORDERS 06/16/24 Transmitted 22:07 Dietary Evaluation Review Comments: 1. advance diet as tolerated per 2. Consider EN/TPN if Pt remains NPO for 48 hours Expected Outcomes/Goals: 1. Pt will consume >75% estimated needs within 2-3 days MARTHA ALVARES MD Jun 17, 2024 11:45
[2024-06-17 12:17] LABS: Ferritin 157.8 ng/mL (22-322)
[2024-06-17 12:18] LABS: Folate (Folic Acid) 8.99 ng/mL (>5.38)
[2024-06-17 12:33] LABS: % Iron Saturation 19.3 % (20-55)
[2024-06-17] MEDS: MORPHINE SULFATE INJ 2 MG/ml SYRG IV PRN (15:43)
--- NOTE | 2024-06-17 18:42 | DVHPN2 ---
Progress Note - Dictate Date Seen: Jun 17, 2024 Medical Necessity Reason Pt with a Central, PICC or Fol: Yes The following are medically ne: Central Line, Grewal Catheter Reason for grewal catheter: Strict I&O Subjective Patient seen and examined at bedside. On supplemental oxygen Overnight events reviewed. vital signs Vital Sign Date Time Temp Pulse Resp B/P (MAP) Pulse Ox O2 Delivery O2 Flow Rate FiO2 06/17/24 17:57 98.4 67 18 163/59 98.4 06/17/24 17:17 94 06/17/24 08:00 Nasal Cannula* 3 32 Total Intake and Output 06/16/24 06/16/24 06/17/24 15:00 23:00 07:00 Intake Total 50 ml 0 ml 0 ml Output Total 1350 ml 2600 ml Balance 50 ml -1350 ml -2600 ml medications Current Medications Medications Dose Ordered Sig/Jason Route Start Time Stop Time Status Last Admin Dose Admin Ondansetron HCl 4 mg Q4HP PRN IV 05/22/24 15:00 06/06/24 02:47 4 MG Acetaminophen 650 mg Q6HP PRN PO 05/22/24 15:00 05/29/24 21:55 650 MG Citalopram Hydrobromide 20 mg DAILY PO 05/23/24 10:00 06/11/24 10:10 20 MG Prochlorperazine Edisylate 10 mg Q6HP PRN IV 05/23/24 12:00 06/04/24 12:42 10 MG Atorvastatin Calcium 20 mg DAILY PO 05/24/24 10:00 06/15/24 09:01 20 MG Nortriptyline HCl 50 mg HS PO 05/23/24 22:00 06/05/24 21:48 50 MG Tamsulosin HCl 0.4 mg QPM PO 05/23/24 18:00 06/11/24 18:05 0.4 MG Docusate Calcium 240 mg DAILY PO 06/03/24 12:33 06/03/24 19:44 240 MG Metoprolol Tartrate 10 mg BID PO 06/03/24 22:00 UNV Sennosides 8.6 mg DAILYP PO 06/03/24 12:33 06/15/24 09:01 8.6 MG Duloxetine HCl 60 mg DAILY PO 06/03/24 12:34 06/15/24 09:01 60 MG Metoprolol Tartrate 25 mg BID PO 06/03/24 22:00 Hold 06/03/24 22:43 25 MG Metoprolol Tartrate 5 mg Q4HP PRN IV 06/05/24 11:15 Hold Pantoprazole Sodium 40 mg DAILY IV 06/06/24 10:00 06/17/24 09:36 40 MG Amino Acids 0 ml @ 0 mls/hr PER PHARMACY IV 06/07/24 13:30 Diagnostic Test (Pha) 1 strip Q6HR 06/07/24 18:00 06/17/24 12:05 1 STRIP Insulin Human Regular FOLLOW SLIDING SCALE Q6HR SC 06/07/24 18:00 06/13/24 11:40 2 UNITS Dextrose 50 ml UD IV 06/07/24 14:15 Acetaminophen 650 mg Q6HP PRN [place] 06/09/24 08:15 06/13/24 01:13 650 MG Enoxaparin Sodium 100 mg Q12HR SC 06/09/24 22:00 06/16/24 21:21 100 MG Metoprolol Tartrate 5 mg BID IV 06/11/24 13:45 UNV Ceftriaxone Sodium 50 ml @ 100 mls/hr DAILY@1000 IV 06/12/24 11:00 06/17/24 09:36 100 MLS/HR Labetalol HCl 10 mg Q2HPRN PRN IV 06/12/24 10:45 06/14/24 04:15 10 MG Hydralazine HCl 20 mg Q6HP PRN IV 06/14/24 03:45 Diltiazem HCl 10 mg Q8H IV 06/14/24 14:45 06/17/24 16:58 10 MG Fat Emulsion Intravenous 100 ml/Sodium Chloride 10 meq/ Potassium Acetate 40 meq/Potassium Phosphate 50 meq/ Magnesium Sulfate 36 meq/ Multivitamins 10 ml/Chromium/ Copper/Manganese/ Zinc 1 ml/Amino Acids/Dextrose 1,353.8636 ml @ 56 mls/hr [id number] IV 06/16/24 20:00 06/17/24 19:59 06/16/24 20:47 56 MLS/HR Bumetanide 1 mg DAILY IV 06/16/24 12:04 Fat Emulsion Intravenous 100 ml/Potassium Acetate 40 meq/ Potassium Phosphate 50 meq/ Magnesium Sulfate 36 meq/ Multivitamins 10 ml/Chromium/ Copper/Manganese/ Zinc 1 ml/Amino Acids/Dextrose 1,351.3636 ml @ 56 mls/hr Q24H8M IV 06/17/24 20:00 06/18/24 19:59 Morphine Sulfate 2 mg Q4HPRN PRN IV 06/17/24 14:30 06/17/24 15:43 2 MG objective Gen.: Patient lying in bed in no apparent distress. On supplemental oxygen Head: Normocephalic, atraumatic Eyes: EOMI/PERRLA. Ears: Normal hearing. Normal anatomy. Neck/trachea: Trachea midline, supple. Nose: Normal external anatomy. Mouth: Moist mucous membranes. Chest: Decreased air entry bilaterally. No wheezing or rhonchi. Cardio vascular: Positive S1, positive S2. Regular rate and rhythm. Abdomen: Positive bowel sounds in all 4 quadrants. Soft, non-tender, non- distended. : Deferred. Rectal: Deferred Skin: Warm, dry. Extremities: 2+ radial pulses bilaterally. No lower extremity edema. Neuro: Awake, alert, oriented x3. No gross motor or sensory deficits. Cranial nerves II through XII intact. Gait not assessed. laboratory and microbiology Laboratory Tests 06/17/24 05:45 Test 06/17/24 05:45 Range/Units Serum Glucose 115 H 74-106 mg/dL Assessment/Plan Impression: Septic shock Acute hypoxic respiratory failure Acute kidney injury, resolved Small bowel obstruction, improving Atrial fibrillation Hx of gastric bypass (Dave-en-Y) Obesity, BMI 34.2 Atelectasis Events: On supplemental oxygen, 2.5 LPM NC Taper O2 as tolerated Chest x-ray demonstrated no acute opacities, pleural effusion or pneumothorax. Continue antibiotics TPN for nutritional support. Swallow evaluation today. Head of bed elevation Aspiration precautions Monitor hemoglobin. LR at 100 ml/hr for IV fluid hydration Bumex for diuresis Monitor renal function Wound care. GI prophylaxis w/ Protonix DVT prophylaxis w/ therapeutic Lovenox Patient is s/p exploratory laparotomy with lysis of adhesions. Rest of plan as noted below. Plan: S/p central line placement. Needed for administration of pressors. S/p extubation. On supplemental oxygen, 2.5 LPM NC Taper O2 as tolerated Antibiotics GI recommendations appreciated. Monitor WBC Hemoglobin - monitor Monitor renal function. Monitor electrolytes. Supplement as necessary. Monitor ins and outs. Creatinine trending down. Diet and lifestyle modifications discussed Obesity - complicates all care. GI/DVT prophylaxis. Prognosis: Poor given patient's multiple co-morbidities. Rest of plan per hospitalist and other consultants. Thank you Makenzie Mcnamara NP, for allowing me to participate in this patient's care. Further recommendations will depend on the patient's clinical course. Please do not hesitate to contact me if you have any questions or concerns. This medical document was created using an electronic medical record system with [employer] dictation system. Although these documentations are being carefully reviewed, there may still be some phonetic and typographical changes. The errors are purely typographical, due to imperfection on the software program, and do not reflect any compromise in the patient's medical care Dietary Evaluation Review Comments: 1. advance diet as tolerated per MD 2. Consider EN/TPN if Pt remains NPO for 48 hours Expected Outcomes/Goals: 1. Pt will consume >75% estimated needs within 2-3 days Plan discussed with: Patient, Other (NIRAV Viramontes) PRISCILLA CORREA MD Jun 17, 2024 18:42
[2024-06-17] MEDS: POTASSIUM PHOSPHATE IV NR (21:04)
[2024-06-17] MEDS: FAT EMULSION IV NR (21:04)
[2024-06-17] MEDS: POTASSIUM ACETATE IV NR (21:04)
[2024-06-17] MEDS: [UNRECOGNIZED DRUG - OTHER] IV NR (21:04)
[2024-06-18] VITALS (8 sets, daily range): BP systolic 104–145; BP diastolic 46–51; PULSE 67–86; RESP 16–20; TEMP 98.2–99.8; O2SAT 93–98
[2024-06-18 06:26] LABS: Anion Gap 5 (5-15); Carbon Dioxide 28 mmol/L (20-31); Chloride 106 mmol/L (98-107); Potassium 4.4 mmol/L (3.5-5.1); Sodium 139 mmol/L (136-145)
[2024-06-18 06:27] LABS: Calcium 8.2 mg/dL (8.7-10.4)
[2024-06-18 06:32] LABS: Glucose 116 mg/dL (74-106)
[2024-06-18 06:33] LABS: BUN/Creatinine Ratio 28.6 (10.0-20.0); Blood Urea Nitrogen 28 mg/dL (9-23); Magnesium 2.2 mg/dL (1.6-2.6)
[2024-06-18 06:34] LABS: Phosphorus 4.1 mg/dL (2.4-5.1)
[2024-06-18 06:49] LABS: Basophils # (auto) 0 10 ^3/uL (0-0.2); Basophils % (auto) 0.3 % (0.0-2.0); Eosinophils # (auto) 0.1 10 ^3/uL (0-0.8); Eosinophils % (auto) 1.1 % (0.0-7.0); Hematocrit 28.5 % (41.0-53.0); Hemoglobin 9.6 g/dL (13.5-17.5); Lymphocytes # (auto) 0.6 10 ^3/uL (0.4-5.4); Lymphocytes % (auto) 6.9 % (10.0-50.0); Mean Corpuscular Hemoglobin 29.7 pg (28.0-32.0); Mean Corpuscular Hgb Conc. 33.7 g/dL (32.0-36.0); Mean Corpuscular Volume 88.1 fL (80.0-100.0); Monocytes # (auto) 0.6 10 ^3/uL (0-1.3); Monocytes % (auto) 6.4 % (0.0-12.0); Neutrophils % (auto) 85.3 % (37.0-80.0); Platelet Count (auto) 202 10^3/uL (140-450); Red Blood Cells 3.24 10^6/uL (4.5-5.90); Red Cell Distribution Width 17.9 % (11.8-14.3); White Blood Cell 9.3 10^3/uL (4.4-10.8)
--- NOTE | 2024-06-18 07:21 | DVHPN2 ---
Progress Note - Dictate Date Seen: Jun 18, 2024 Medical Necessity Reason Pt with a Central, PICC or Fol: Yes The following are medically ne: Central Line, Grewal Catheter Reason for grewal catheter: Strict I&O vital signs Vital Sign Date Time Temp Pulse Resp B/P (MAP) Pulse Ox O2 Delivery O2 Flow Rate FiO2 06/18/24 04:53 99.8 77 20 133/47 (75) 95 99.8 06/17/24 20:00 Nasal Cannula* 2 28 Total Intake and Output 06/17/24 06/17/24 06/18/24 15:00 23:00 07:00 Intake Total 50 ml 700 ml 550 ml Output Total 1450 ml Balance 50 ml -750 ml 550 ml medications Current Medications Medications Dose Ordered Sig/Jason Route Start Time Stop Time Status Last Admin Dose Admin Ondansetron HCl 4 mg Q4HP PRN IV 05/22/24 15:00 06/06/24 02:47 4 MG Acetaminophen 650 mg Q6HP PRN PO 05/22/24 15:00 05/29/24 21:55 650 MG Citalopram Hydrobromide 20 mg DAILY PO 05/23/24 10:00 06/11/24 10:10 20 MG Prochlorperazine Edisylate 10 mg Q6HP PRN IV 05/23/24 12:00 06/04/24 12:42 10 MG Atorvastatin Calcium 20 mg DAILY PO 05/24/24 10:00 06/15/24 09:01 20 MG Nortriptyline HCl 50 mg HS PO 05/23/24 22:00 06/05/24 21:48 50 MG Tamsulosin HCl 0.4 mg QPM PO 05/23/24 18:00 06/17/24 18:43 0.4 MG Docusate Calcium 240 mg DAILY PO 06/03/24 12:33 06/03/24 19:44 240 MG Metoprolol Tartrate 10 mg BID PO 06/03/24 22:00 UNV Sennosides 8.6 mg DAILYP PO 06/03/24 12:33 06/15/24 09:01 8.6 MG Duloxetine HCl 60 mg DAILY PO 06/03/24 12:34 06/15/24 09:01 60 MG Metoprolol Tartrate 25 mg BID PO 06/03/24 22:00 Hold 06/03/24 22:43 25 MG Metoprolol Tartrate 5 mg Q4HP PRN IV 06/05/24 11:15 Hold Pantoprazole Sodium 40 mg DAILY IV 06/06/24 10:00 06/17/24 09:36 40 MG Amino Acids 0 ml @ 0 mls/hr PER PHARMACY IV 06/07/24 13:30 Diagnostic Test (Pha) 1 strip Q6HR 06/07/24 18:00 06/18/24 05:55 1 STRIP Insulin Human Regular FOLLOW SLIDING SCALE Q6HR SC 06/07/24 18:00 06/17/24 18:53 2 UNITS Dextrose 50 ml UD IV 06/07/24 14:15 Acetaminophen 650 mg Q6HP PRN OR 06/09/24 08:15 06/13/24 01:13 650 MG Enoxaparin Sodium 100 mg Q12HR SC 06/09/24 22:00 06/16/24 21:21 100 MG Metoprolol Tartrate 5 mg BID IV 06/11/24 13:45 UNV Ceftriaxone Sodium 50 ml @ 100 mls/hr DAILY@1000 IV 06/12/24 11:00 06/17/24 09:36 100 MLS/HR Labetalol HCl 10 mg Q2HPRN PRN IV 06/12/24 10:45 06/14/24 04:15 10 MG Hydralazine HCl 20 mg Q6HP PRN IV 06/14/24 03:45 Diltiazem HCl 10 mg Q8H IV 06/14/24 14:45 06/18/24 06:33 10 MG Bumetanide 1 mg DAILY IV 06/16/24 12:04 Fat Emulsion Intravenous 100 ml/Potassium Acetate 40 meq/ Potassium Phosphate 50 meq/ Magnesium Sulfate 36 meq/ Multivitamins 10 ml/Chromium/ Copper/Manganese/ Zinc 1 ml/Amino Acids/Dextrose 1,351.3636 ml @ 56 mls/hr Q24H8M IV 06/17/24 20:00 06/18/24 19:59 06/17/24 21:04 56 MLS/HR Morphine Sulfate 2 mg Q4HPRN PRN IV 06/17/24 14:30 06/18/24 04:05 2 MG laboratory and microbiology Laboratory Tests 06/18/24 05:45 Test 06/18/24 05:45 Range/Units Serum Glucose 116 H 74-106 mg/dL Assessment/Plan s/p Laparotomy (found to have contained bowel perforation, abscess) Has Bowel movements In tele floor Had mechanical fall and found to have hip fracture. S/p ORIF (earlier during admission course) Patient is a 74-year-old gentleman who presented on May 22, 2024 for epigastric pain. It seems that he ate sandwich in this was followed by repeated abdominal pain and vomiting. He has been admitted with small-bowel obstruction. He also was found to have gallstones and gastric outlet obstruction. He has been seen by surgery and GI. He has been having NG tube. Patient does have history of paroxysmal AFib and is on Eliquis as outpatient. On 05/24 2024, the patient was found to have tachyarrhythmia and cardiology was involved for its evaluation and management. Telemetry revealed tachyarrhythmia in the rate of 150s. Tele was in favor of SVT. Patient was attached to the monitor and 6 mg of adenosine was given which resulted in breaking of the tachyarrhythmia inpatient been back to sinus rhythm. As per patient, he usually follows with Cardiology in [facility]. As per patient, he did have angiogram (cardiac catheterization some years ago and was told that it was normal findings). Lying flat in bed and not in acute distress. No JVD. Mucosa is pink and wet. No carotid bruit. No goiter. Lungs are clear to auscultation. No thrill/gallop. Abdomen is soft. Extremities do not reveal edema Past medical history includes atrial fibrillation (on Eliquis as outpatient), DJD, heart failure (diastolic), COPD, hypertension, hyperlipidemia, reported diabetes mellitus, obesity, old history of tonsillectomy and gastric bypass surgery. He is known to have kidney stones. Echocardiogram of January 2020 revealed ejection fraction of 60% and biatrial enlargement Troponin (high sensitive): 19 - 11 TSH: 3.28 CT of the abdomen and pelvis revealed: IMPRESSION: 1. Cholelithiasis with the gallbladder distended. 2. Postop changes to the stomach with a fluid-filled distended stomach and dilated fluid-filled small bowel findings suggest small bowel obstruction. 3. Multiple bilateral nonobstructing renal calculi. 4. Prosthesis in the right hip. Chest x-ray revealed: Frontal chest radiograph demonstrates no acute osseous or superficial soft tissue abnormalities. Enteric tube visualized overlying the plane of the stomach. The trachea is midline. The cardiac silhouette and mediastinum are within normal limits. No pneumothorax, pleural effusions, or consolidations. Partially visualized gaseous distended loops of bowel. Repeat chest xry revealed: IMPRESSION: 1. Stable appearance of the support lines and tubes. 2. Bibasilar airspace disease similar to prior study. Repeat chest xry revealed: IMPRESSION: Endotracheal projects 0.7 cm above the level of the gary. Recommend retraction. HIDA scan reported: IMPRESSION: 1. Findings may reflect chronic cholecystitis, cannot exclude acute cholecystitis due to lack of 30-60 minute images. KUB revealed: IMPRESSION: Findings concerning for small bowel obstruction versus ileus. Repeat KUB revealed: FINDINGS/IMPRESSION: Dilated loops of small bowel with gas and stool visualized in the colon. Findings appear improved compared to prior exam. Repeat KUB revealed: IMPRESSION: 1. There are air-filled dilated small bowel loops. Air and stool is seen within the colon. The findings appear mildly improved comparison to the prior study. The findings fairly stable and May relate to an ileus.. Clinical correlation and continued follow-up is recommended Repeat KUB revealed: Impression: 1. Nonobstructive bowel gas pattern. Repeat KUB revealed: Findings/ Impression: Postsurgical changes of the abdomen with skin lavern noted over the right hemiabdomen. Enteric tube is noted terminating within the stomach. There are gas-filled mildly distended small bowel loops which may be due to ileus with partial bowel obstruction not excluded. There is contrast noted within the nondistended large bowel. Bibasilar atelectasis. No acute bony abnormalities. Right total hip replacement with partially visualized intramedullary speedy and dynamic screw fixation of the left proximal femur Gallbladder ultrasound reported: FINDINGS: Examination is limited. The gallbladder appears distended. The gallbladder wall measures 2 mm in thickness, within normal limits. Possible sludge in the gallbladder. Negative reported sonographic valladares's sign. The common bile duct measures 6 mm in diameter, within normal limits. The liver measures at the upper limits of normal in size, at 16.4 cm in craniocaudal dimension. Heterogeneous echotexture of the liver. The pancreas is obscured by bowel gas. The right kidney measures 9.6 cm. There is no hydronephrosis. Limited evaluation of the right kidney. Echogenic focus, possible renal calculus at the midpole measuring 1.4 cm. The patient does have renal calculi on recent CT exam. IMPRESSION: 1. Limited examination as described above. Possible gallbladder sludge and distended gallbladder. No sonographic evidence of acute cholecystitis. 2. Additional nonacute findings as described above. HIDA scan revealed: Impression: 1. Unremarkable hepatobiliary study without evidence of acute cholecystitis. Left Hip Xry: FINDINGS/IMPRESSION: There is a displaced and impacted left intertrochanteric fracture. Patient is status post right hip arthroplasty. EKG revealed SVT Tele revealed SVT which later transitioned into sinus rhythm Echocardiogram revealed: Technically limited study secondary to poor acoustic windows. Left ventricle: Mild concentric left ventricular hypertrophy was seen. LVEF was 55-60%. Right ventricle was normal size with normal systolic function. Both atria were mildly dilated. Aortic valve was not well visualized. Aortic sclerosis with no stenosis was observed. [id number] aortic insufficiency was observed. Mild mitral/tricuspid regurgitation was seen. Tricuspid valve was not well visualized. Right ventricular systolic pressure was assessed around 25 mm Hg. There was no pericardial effusion. Ascending aorta was 4.5 cm. Patient is a 74-year-old gentleman who presented with abdominal pain and is being managed for small bowel obstruction. He does have history of paroxysmal AFib. Has not been taking his medications regularly and this was followed with tachyarrhythmia. Tachyarrhythmia was in favor of SVT. SVT responded to adenosine Small-bowel obstruction Obesity History of gastric bypass Paroxysmal AFib SVT Status post adenosine management Diabetes mellitus Obesity, morbid Gallstone Renal stone s/p laparotomy bowel perforation Cardiac suggestion for management: For now, manage in tele Follow-up electrolytes and kidney function tests and correct abnormalities Keep potassium above 4 and magnesium above 2 Cardizem, oral Fluid resuscitation Surgery and GI follow up Long-term continuation of anticoagulation is suggested (for now patient on Lovenox) Further evaluation and management depends on the above and clinical course A total of 55 minutes was spent reviewing the patient record, examining the patient, making a diagnostic and therapeutic plan, discussing this plan with medical personnel, following up on diagnostic studies and following the patient for clinical stability excluding any and all procedures. At least 50% of this time was spent in direct, [id number] contact. Thank you for allowing me to participate in this patient's care. Further recommendations will depend on patient's clinical course. Please do not hesitate to contact me if you have any questions or concerns. This medical document was created using electronic medical record system with [employer] computerized dictation system. Although this document has been carefully reviewed, there may still be some phonetic and typographical errors. These areas are purely typographical due to the imperfection of the software programs, and do not reflect any compromise in the patient's medical care. Dietary Evaluation Review Comments: 1. advance diet as tolerated per MD 2. Consider EN/TPN if Pt remains NPO for 48 hours Expected Outcomes/Goals: 1. Pt will consume >75% estimated needs within 2-3 days Plan discussed with: Patient, Other (nurse) BROOKS PRITCHARD MD Jun 18, 2024 07:21
--- NOTE | 2024-06-18 10:40 | DVH ---
EXAM: XY CHEST XRAY 1 VIEW Indication:Central line placement Technique: Single frontal view of the chest was obtained Comparison: XY CHEST XRAY 1 VIEW on DOS: 06/17/24, XY CHEST PORTABLE on DOS: 06/14/24, XY CHEST XRAY 1 VIEW on DOS: 06/11/24, XY CHEST XRAY 1 VIEW on DOS: 06/08/24, XY CHEST PORTABLE on DOS: 06/07/24, XY CHEST XRAY 1 VIEW on DOS: 06/17/24 FINDINGS: Lines and Tubes: Interval removal of endotracheal and enteric tube compared to prior exam. Right inte rnal jugular central venous catheter tip projects over the superior vena cava. Lungs: No focal consolidation. Atherosclerotic vascular calcifications of the thoracic aorta are not ed. Pleura: No effusion. No pneumothorax. Cardiomediastinal contours: Unremarkable Bones: No acute osseous abnormality. IMPRESSION: Interval removal of endotracheal and enteric tube compared to prior exam.No acute cardiopulmonary dis ease.
[2024-06-18] MEDS ORDERED: dilTIAZem 120MG ER CAP PO SCH (12:00)
[2024-06-18] MEDS: dilTIAZem HCL 60 MG TAB PO SCH (12:34)
--- NOTE | 2024-06-18 15:01 | DVHPN2 ---
Progress Note Date Seen: Jun 18, 2024 Medical Necessity Reason Pt with a Central, PICC or Fol: Yes The following are medically ne: Central Line, Grewal Catheter Reason for grewal catheter: Strict I&O Objective vital signs Vital Sign Date Time Temp Pulse Resp B/P (MAP) Pulse Ox O2 Delivery O2 Flow Rate FiO2 06/18/24 13:00 98.2 86 16 104/47 (66) 96 98.2 06/17/24 20:00 Nasal Cannula* 2 28 Total Intake and Output 06/17/24 06/17/24 06/18/24 15:00 23:00 07:00 Intake Total 50 ml 700 ml 550 ml Output Total 1450 ml Balance 50 ml -750 ml 550 ml medications Current Medications Medications Dose Ordered Sig/Jason Route Start Time Stop Time Status Last Admin Dose Admin Ondansetron HCl 4 mg Q4HP PRN IV 05/22/24 15:00 06/06/24 02:47 4 MG Acetaminophen 650 mg Q6HP PRN PO 05/22/24 15:00 05/29/24 21:55 650 MG Citalopram Hydrobromide 20 mg DAILY PO 05/23/24 10:00 06/18/24 09:41 20 MG Prochlorperazine Edisylate 10 mg Q6HP PRN IV 05/23/24 12:00 06/04/24 12:42 10 MG Atorvastatin Calcium 20 mg DAILY PO 05/24/24 10:00 06/18/24 09:41 20 MG Nortriptyline HCl 50 mg HS PO 05/23/24 22:00 06/05/24 21:48 50 MG Tamsulosin HCl 0.4 mg QPM PO 05/23/24 18:00 06/17/24 18:43 0.4 MG Docusate Calcium 240 mg DAILY PO 06/03/24 12:33 06/18/24 09:41 240 MG Metoprolol Tartrate 10 mg BID PO 06/03/24 22:00 UNV Sennosides 8.6 mg DAILYP PO 06/03/24 12:33 06/18/24 09:41 8.6 MG Duloxetine HCl 60 mg DAILY PO 06/03/24 12:34 06/18/24 09:41 60 MG Metoprolol Tartrate 25 mg BID PO 06/03/24 22:00 Hold 06/03/24 22:43 25 MG Metoprolol Tartrate 5 mg Q4HP PRN IV 06/05/24 11:15 Hold Pantoprazole Sodium 40 mg DAILY IV 06/06/24 10:00 06/18/24 09:41 40 MG Amino Acids 0 ml @ 0 mls/hr PER PHARMACY IV 06/07/24 13:30 Diagnostic Test (Pha) 1 strip Q6HR 06/07/24 18:00 06/18/24 12:34 1 STRIP Insulin Human Regular FOLLOW SLIDING SCALE Q6HR SC 06/07/24 18:00 06/17/24 18:53 2 UNITS Dextrose 50 ml UD IV 06/07/24 14:15 Acetaminophen 650 mg Q6HP PRN AL 06/09/24 08:15 06/13/24 01:13 650 MG Enoxaparin Sodium 100 mg Q12HR SC 06/09/24 22:00 06/16/24 21:21 100 MG Metoprolol Tartrate 5 mg BID IV 06/11/24 13:45 UNV Ceftriaxone Sodium 50 ml @ 100 mls/hr DAILY@1000 IV 06/12/24 11:00 06/18/24 09:41 100 MLS/HR Labetalol HCl 10 mg Q2HPRN PRN IV 06/12/24 10:45 06/14/24 04:15 10 MG Hydralazine HCl 20 mg Q6HP PRN IV 06/14/24 03:45 Bumetanide 1 mg DAILY IV 06/16/24 12:04 Fat Emulsion Intravenous 100 ml/Potassium Acetate 40 meq/ Potassium Phosphate 50 meq/ Magnesium Sulfate 36 meq/ Multivitamins 10 ml/Chromium/ Copper/Manganese/ Zinc 1 ml/Amino Acids/Dextrose 1,351.3636 ml @ 56 mls/hr Q24H8M IV 06/17/24 20:00 06/18/24 19:59 06/17/24 21:04 56 MLS/HR Morphine Sulfate 2 mg Q4HPRN PRN IV 06/17/24 14:30 06/18/24 09:43 2 MG Diltiazem HCl 30 mg Q6HR PO 06/18/24 12:00 06/18/24 12:34 30 MG Fat Emulsion Intravenous 100 ml/Magnesium Sulfate 30 meq/ Multivitamins 10 ml/Chromium/ Copper/Manganese/ Zinc 1 ml/Amino Acids/Dextrose/ Purified Water 1,418.5 ml @ 59 mls/hr Q24H3M IV 06/18/24 20:00 06/19/24 19:59 laboratory and microbiology Laboratory Tests 06/18/24 05:45 Test 06/18/24 05:45 Range/Units Serum Glucose 116 H 74-106 mg/dL Microbiology Date/Time Source Procedure Growth Status 06/09/24 18:42 Lung Pending Resulted 06/09/24 18:42 Lung Pending Resulted 06/09/24 18:42 Lung Pending Resulted 06/09/24 18:42 Lung Pending Resulted 06/09/24 18:42 Lung - Final See Separate Report... Resulted 06/09/24 18:42 Bronchial Washings Gram Stain - Final Complete 06/09/24 18:42 Respiratory Culture - Final Escherichia coli Complete Problem List/Assessment/Plan Problem List/Assessment/Plan AFEBRILE VSS ABD SOFT LESS DISTENDED BM + FLATUS + WBC TRENDING DOWN URINE OUTPUT IMPROVED CONDITION BETTER NURSE AT BEDSIDE PASSED SWALLOW TEST SONAM SOFT DIET NO COMPLICATIONS Plan discussed with: Patient My Orders My Orders Orders - MARTHA ALVARES MD Procedure Category Date Status Time Amino Acid PHA 06/18/24 In Process Infusion... W/Fat 20:00 Dietary Evaluation Review Comments: 1. advance diet as tolerated per 2. Consider EN/TPN if Pt remains NPO for 48 hours Expected Outcomes/Goals: 1. Pt will consume >75% estimated needs within 2-3 days MARTHA ALVARES MD Jun 18, 2024 15:01
--- NOTE | 2024-06-18 15:40 | DVHPN2 ---
Progress Note - Dictate Date Seen: Jun 18, 2024 Medical Necessity Reason Pt with a Central, PICC or Fol: Yes The following are medically ne: Central Line, Grewal Catheter Reason for grewal catheter: Strict I&O vital signs Vital Sign Date Time Temp Pulse Resp B/P (MAP) Pulse Ox O2 Delivery O2 Flow Rate FiO2 06/18/24 15:02 86 16 104/47 06/18/24 13:00 98.2 96 98.2 06/17/24 20:00 Nasal Cannula* 2 28 Total Intake and Output 06/17/24 06/17/24 06/18/24 15:00 23:00 07:00 Intake Total 50 ml 700 ml 550 ml Output Total 1450 ml Balance 50 ml -750 ml 550 ml medications Current Medications Medications Dose Ordered Sig/Jason Route Start Time Stop Time Status Last Admin Dose Admin Ondansetron HCl 4 mg Q4HP PRN IV 05/22/24 15:00 06/06/24 02:47 4 MG Acetaminophen 650 mg Q6HP PRN PO 05/22/24 15:00 05/29/24 21:55 650 MG Citalopram Hydrobromide 20 mg DAILY PO 05/23/24 10:00 06/18/24 09:41 20 MG Prochlorperazine Edisylate 10 mg Q6HP PRN IV 05/23/24 12:00 06/04/24 12:42 10 MG Atorvastatin Calcium 20 mg DAILY PO 05/24/24 10:00 06/18/24 09:41 20 MG Nortriptyline HCl 50 mg HS PO 05/23/24 22:00 06/05/24 21:48 50 MG Tamsulosin HCl 0.4 mg QPM PO 05/23/24 18:00 06/17/24 18:43 0.4 MG Docusate Calcium 240 mg DAILY PO 06/03/24 12:33 06/18/24 09:41 240 MG Metoprolol Tartrate 10 mg BID PO 06/03/24 22:00 UNV Sennosides 8.6 mg DAILYP PO 06/03/24 12:33 06/18/24 09:41 8.6 MG Duloxetine HCl 60 mg DAILY PO 06/03/24 12:34 06/18/24 09:41 60 MG Metoprolol Tartrate 25 mg BID PO 06/03/24 22:00 Hold 06/03/24 22:43 25 MG Metoprolol Tartrate 5 mg Q4HP PRN IV 06/05/24 11:15 Hold Pantoprazole Sodium 40 mg DAILY IV 06/06/24 10:00 06/18/24 09:41 40 MG Amino Acids 0 ml @ 0 mls/hr PER PHARMACY IV 06/07/24 13:30 Diagnostic Test (Pha) 1 strip Q6HR 06/07/24 18:00 06/18/24 12:34 1 STRIP Insulin Human Regular FOLLOW SLIDING SCALE Q6HR SC 06/07/24 18:00 06/17/24 18:53 2 UNITS Dextrose 50 ml UD IV 06/07/24 14:15 Acetaminophen 650 mg Q6HP PRN CO 06/09/24 08:15 06/13/24 01:13 650 MG Enoxaparin Sodium 100 mg Q12HR SC 06/09/24 22:00 06/16/24 21:21 100 MG Metoprolol Tartrate 5 mg BID IV 06/11/24 13:45 UNV Ceftriaxone Sodium 50 ml @ 100 mls/hr DAILY@1000 IV 06/12/24 11:00 06/18/24 09:41 100 MLS/HR Labetalol HCl 10 mg Q2HPRN PRN IV 06/12/24 10:45 06/14/24 04:15 10 MG Hydralazine HCl 20 mg Q6HP PRN IV 06/14/24 03:45 Bumetanide 1 mg DAILY IV 06/16/24 12:04 Fat Emulsion Intravenous 100 ml/Potassium Acetate 40 meq/ Potassium Phosphate 50 meq/ Magnesium Sulfate 36 meq/ Multivitamins 10 ml/Chromium/ Copper/Manganese/ Zinc 1 ml/Amino Acids/Dextrose 1,351.3636 ml @ 56 mls/hr Q24H8M IV 06/17/24 20:00 06/18/24 19:59 06/17/24 21:04 56 MLS/HR Morphine Sulfate 2 mg Q4HPRN PRN IV 06/17/24 14:30 06/18/24 15:02 2 MG Diltiazem HCl 30 mg Q6HR PO 06/18/24 12:00 06/18/24 12:34 30 MG Fat Emulsion Intravenous 100 ml/Magnesium Sulfate 30 meq/ Multivitamins 10 ml/Chromium/ Copper/Manganese/ Zinc 1 ml/Amino Acids/Dextrose/ Purified Water 1,418.5 ml @ 59 mls/hr Q24H3M IV 06/18/24 20:00 06/19/24 19:59 objective General Appearance: alert, no distress HEENT: EOMI, PERRLA, normal external inspect of ears, no icterus, no nasal drainage Neck: no carotid bruit, no jugular venous distention (JVD), no lymphadenopathy Chest: normal thorax Respiratory: clear to auscultation, normal air movement Cardiovascular: regular rate and rhythm, no diastolic murmur, no jugular venous distention (JVD), no rub, no systolic murmur Abdominal: soft, no hepatomegaly, no mass, no splenomegaly, no tenderness Genitourinary: grossly normal external Musculoskeletal: no joint tenderness, no swelling Extremities: normal pulses, no calf tenderness, no clubbing, no cyanosis, no edema Skin: no bruising, no jaundice, no rash Neurological: alert, No focal deficit laboratory and microbiology Laboratory Tests 06/18/24 05:45 Test 06/18/24 05:45 Range/Units Serum Glucose 116 H 74-106 mg/dL Problem List 1. Small bowel obstruction Monitor, surgical consult, GI consult, NPO 2. HLD Monitor 3. Persistent atrial fibrillation Monitor, full dose Lovenox 4. Obesity Monitor 5. Hx gastric bypass Monitor 6. Benign essential HTN Monitor, antihypertensives 7. Gallstones Monitor, surgical consult, GI consult, NPO, HIDA scan 8. Sepsis Monitor 9. Septic Shock Monitor 10. Acute renal failure Monitor, nephrology consult Assessment/Plan Subjective: Patient is awake and alert. Objective: Patient passed his swallow evaluation today. Patient was advanced to a soft diet. Chest X-ray was negative for any acute cardiopulmonary process. Abdominal X-ray from yesterday showed possible ileus. However, per gastroenterology, patient was cleared for a diet today. Patient is status post exploratory laparotomy with lysis of adhesions. Patient had abdominal perforation with a colon resection. Patient had an I&D and abscess drainage and revision of Dave-en-Y bypass. Hemoglobin is stable. Patient has been working with physical therapy. Plan: card services specialist consult. Discharge planning to a [facility] facility for rehabilitation. Dietary Evaluation Review Comments: 1. advance diet as tolerated per MD 2. Consider EN/TPN if Pt remains NPO for 48 hours Expected Outcomes/Goals: 1. Pt will consume >75% estimated needs within 2-3 days Plan discussed with: Patient, Other TETO CRAMER CELL REPAIRER Jun 18, 2024 15:40
[2024-06-18] MEDS ORDERED: TPN PER PHARMACY IV NR (20:00)
--- NOTE | 2024-06-18 20:29 | DVHPN2 ---
Progress Note - Dictate Date Seen: Jun 18, 2024 Medical Necessity Reason Pt with a Central, PICC or Fol: No The following are medically ne: Central Line, Grewal Catheter Reason for grewal catheter: Strict I&O Subjective Patient seen and examined at bedside. On supplemental oxygen Overnight events reviewed. vital signs Vital Sign Date Time Temp Pulse Resp B/P (MAP) Pulse Ox O2 Delivery O2 Flow Rate FiO2 06/18/24 20:03 84 18 122/73 06/18/24 17:00 98.4 97 98.4 06/18/24 08:00 Nasal Cannula* 2 28 Total Intake and Output 06/17/24 06/17/24 06/18/24 15:00 23:00 07:00 Intake Total 50 ml 700 ml 550 ml Output Total 1450 ml Balance 50 ml -750 ml 550 ml medications Current Medications Medications Dose Ordered Sig/Jason Route Start Time Stop Time Status Last Admin Dose Admin Ondansetron HCl 4 mg Q4HP PRN IV 05/22/24 15:00 06/06/24 02:47 4 MG Acetaminophen 650 mg Q6HP PRN PO 05/22/24 15:00 05/29/24 21:55 650 MG Citalopram Hydrobromide 20 mg DAILY PO 05/23/24 10:00 06/18/24 09:41 20 MG Prochlorperazine Edisylate 10 mg Q6HP PRN IV 05/23/24 12:00 06/04/24 12:42 10 MG Atorvastatin Calcium 20 mg DAILY PO 05/24/24 10:00 06/18/24 09:41 20 MG Nortriptyline HCl 50 mg HS PO 05/23/24 22:00 06/18/24 20:05 50 MG Tamsulosin HCl 0.4 mg QPM PO 05/23/24 18:00 06/18/24 17:44 0.4 MG Docusate Calcium 240 mg DAILY PO 06/03/24 12:33 06/18/24 09:41 240 MG Metoprolol Tartrate 10 mg BID PO 06/03/24 22:00 UNV Sennosides 8.6 mg DAILYP PO 06/03/24 12:33 06/18/24 09:41 8.6 MG Duloxetine HCl 60 mg DAILY PO 06/03/24 12:34 06/18/24 09:41 60 MG Metoprolol Tartrate 25 mg BID PO 06/03/24 22:00 Hold 06/03/24 22:43 25 MG Metoprolol Tartrate 5 mg Q4HP PRN IV 06/05/24 11:15 Hold Pantoprazole Sodium 40 mg DAILY IV 06/06/24 10:00 06/18/24 09:41 40 MG Acetaminophen 650 mg Q6HP PRN WV 06/09/24 08:15 06/13/24 01:13 650 MG Enoxaparin Sodium 100 mg Q12HR SC 06/09/24 22:00 06/16/24 21:21 100 MG Metoprolol Tartrate 5 mg BID IV 06/11/24 13:45 UNV Ceftriaxone Sodium 50 ml @ 100 mls/hr DAILY@1000 IV 06/12/24 11:00 06/18/24 09:41 100 MLS/HR Labetalol HCl 10 mg Q2HPRN PRN IV 06/12/24 10:45 06/14/24 04:15 10 MG Hydralazine HCl 20 mg Q6HP PRN IV 06/14/24 03:45 Bumetanide 1 mg DAILY IV 06/16/24 12:04 Morphine Sulfate 2 mg Q4HPRN PRN IV 06/17/24 14:30 06/18/24 20:03 2 MG Diltiazem HCl 30 mg Q6HR PO 06/18/24 12:00 06/18/24 17:44 30 MG objective Gen.: Patient lying in bed in no apparent distress. On supplemental oxygen Head: Normocephalic, atraumatic Eyes: EOMI/PERRLA. Ears: Normal hearing. Normal anatomy. Neck/trachea: Trachea midline, supple. Nose: Normal external anatomy. Mouth: Moist mucous membranes. Chest: Decreased air entry bilaterally. No wheezing or rhonchi. Cardio vascular: Positive S1, positive S2. Regular rate and rhythm. Abdomen: Positive bowel sounds in all 4 quadrants. Soft, non-tender, non- distended. : Deferred. Rectal: Deferred Skin: Warm, dry. Extremities: 2+ radial pulses bilaterally. No lower extremity edema. Neuro: Awake, alert, oriented x3. No gross motor or sensory deficits. Cranial nerves II through XII intact. Gait not assessed. laboratory and microbiology Laboratory Tests 06/18/24 05:45 Test 06/18/24 05:45 Range/Units Serum Glucose 116 H 74-106 mg/dL Assessment/Plan Impression: Septic shock Acute hypoxic respiratory failure Acute kidney injury, resolved Small bowel obstruction, improving Atrial fibrillation Hx of gastric bypass ([id number]) Obesity, BMI 34.2 Atelectasis Events: On supplemental oxygen, 3 LPM NC Taper O2 as tolerated On soft diet Advance diet as tolerated Patient c/o productive cough Obtain CXR for interval changes. S/p 1 unit PRBC transfusion. Hemoglobin of 9.6 g/dL after PRBC. Continue to monitor Continue antibiotics TPN for nutritional support. Head of bed elevation Aspiration precautions LR at 100 ml/hr for IV fluid hydration Bumex for diuresis - patient refused Monitor renal function Wound care. GI prophylaxis w/ Protonix DVT prophylaxis w/ therapeutic Lovenox Patient is s/p exploratory laparotomy with lysis of adhesions. Rest of plan as noted below. Plan: S/p central line placement. Needed for administration of pressors. S/p extubation. On supplemental oxygen, 3 LPM NC Taper O2 as tolerated Antibiotics GI recommendations appreciated. Monitor WBC Hemoglobin - monitor Monitor renal function. Monitor electrolytes. Supplement as necessary. Monitor ins and outs. Creatinine trending down. Diet and lifestyle modifications discussed Obesity - complicates all care. GI/DVT prophylaxis. Prognosis: Poor given patient's multiple co-morbidities. Rest of plan per hospitalist and other consultants. Thank you S JENNA Mcnamara, for allowing me to participate in this patient's care. Further recommendations will depend on the patient's clinical course. Please do not hesitate to contact me if you have any questions or concerns. This medical document was created using an electronic medical record system with [employer] dictation system. Although these documentations are being carefully reviewed, there may still be some phonetic and typographical changes. The errors are purely typographical, due to imperfection on the software program, and do not reflect any compromise in the patient's medical care Dietary Evaluation Review Comments: 1. advance diet as tolerated per 2. Consider EN/TPN if Pt remains NPO for 48 hours Expected Outcomes/Goals: 1. Pt will consume >75% estimated needs within 2-3 days Plan discussed with: Patient, Other (NIRAV John) PRISCILLA CORREA MD Jun 18, 2024 20:29
--- NOTE | 2024-06-18 21:44 | DVHPN2 ---
Progress Note - Dictate Date Seen: Jun 18, 2024 Medical Necessity Reason Pt with a Central, PICC or Fol: Yes The following are medically ne: Central Line, Grewal Catheter Reason for grewal catheter: Strict I&O Subjective No new complaints Patient is awake responsive Patient has passed swallow eval He has been started on a GI soft diet He is on supplemental oxygen Patient is having bowel activity No active GI bleeding was reported PROCEDURES: Exploratory laparotomy with drainage of intra-abdominal abscess, lysis of adhesions, and small bowel resection and anastomosis with revision of the distal gastric bypass anastomosis. vital signs Vital Sign Date Time Temp Pulse Resp B/P (MAP) Pulse Ox O2 Delivery O2 Flow Rate FiO2 06/18/24 21:00 99.7 86 19 112/50 (70) 93 99.7 06/18/24 08:00 Nasal Cannula* 2 28 Total Intake and Output 06/17/24 06/17/24 06/18/24 15:00 23:00 07:00 Intake Total 50 ml 700 ml 550 ml Output Total 1450 ml Balance 50 ml -750 ml 550 ml medications Current Medications Medications Dose Ordered Sig/Jason Route Start Time Stop Time Status Last Admin Dose Admin Ondansetron HCl 4 mg Q4HP PRN IV 05/22/24 15:00 06/06/24 02:47 4 MG Acetaminophen 650 mg Q6HP PRN PO 05/22/24 15:00 05/29/24 21:55 650 MG Citalopram Hydrobromide 20 mg DAILY PO 05/23/24 10:00 06/18/24 09:41 20 MG Prochlorperazine Edisylate 10 mg Q6HP PRN IV 05/23/24 12:00 06/04/24 12:42 10 MG Atorvastatin Calcium 20 mg DAILY PO 05/24/24 10:00 06/18/24 09:41 20 MG Nortriptyline HCl 50 mg HS PO 05/23/24 22:00 06/18/24 20:05 50 MG Tamsulosin HCl 0.4 mg QPM PO 05/23/24 18:00 06/18/24 17:44 0.4 MG Docusate Calcium 240 mg DAILY PO 06/03/24 12:33 06/18/24 09:41 240 MG Metoprolol Tartrate 10 mg BID PO 06/03/24 22:00 UNV Sennosides 8.6 mg DAILYP PO 06/03/24 12:33 06/18/24 09:41 8.6 MG Duloxetine HCl 60 mg DAILY PO 06/03/24 12:34 06/18/24 09:41 60 MG Metoprolol Tartrate 25 mg BID PO 06/03/24 22:00 Hold 06/03/24 22:43 25 MG Metoprolol Tartrate 5 mg Q4HP PRN IV 06/05/24 11:15 Hold Pantoprazole Sodium 40 mg DAILY IV 06/06/24 10:00 06/18/24 09:41 40 MG Acetaminophen 650 mg Q6HP PRN [place] 06/09/24 08:15 06/13/24 01:13 650 MG Enoxaparin Sodium 100 mg Q12HR SC 06/09/24 22:00 06/16/24 21:21 100 MG Metoprolol Tartrate 5 mg BID IV 06/11/24 13:45 UNV Ceftriaxone Sodium 50 ml @ 100 mls/hr DAILY@1000 IV 06/12/24 11:00 06/18/24 09:41 100 MLS/HR Labetalol HCl 10 mg Q2HPRN PRN IV 06/12/24 10:45 06/14/24 04:15 10 MG Hydralazine HCl 20 mg Q6HP PRN IV 06/14/24 03:45 Bumetanide 1 mg DAILY IV 06/16/24 12:04 Morphine Sulfate 2 mg Q4HPRN PRN IV 06/17/24 14:30 06/18/24 20:03 2 MG Diltiazem HCl 30 mg Q6HR PO 06/18/24 12:00 06/18/24 17:44 30 MG objective General Appearance: Intubated off sedation starting to wake up on CPAP trial HEENT: EOMI, PERRLA, normal external inspect of ears, no icterus, no nasal drainage Neck: no carotid bruit, no jugular venous distention (JVD), no lymphadenopathy Chest: normal thorax Respiratory: clear to auscultation, normal air movement Cardiovascular: regular rate and rhythm, no diastolic murmur, no jugular venous distention (JVD), no rub, no systolic murmur Abdominal: soft, no hepatomegaly, no mass, no splenomegaly, dressing dry binder in place GIANNA drain Musculoskeletal: no joint tenderness, no swelling Extremities: normal pulses, no calf tenderness, no clubbing, no cyanosis, no edema Skin: no bruising, no jaundice, no rash Neurological: alert, No focal deficit laboratory and microbiology Laboratory Tests 06/18/24 05:45 Test 06/18/24 05:45 Range/Units Serum Glucose 116 H 74-106 mg/dL Problems(with codes): (1) INTESTINAL OBSTRUCT NOS (2) CHR PULMON HEART DIS NEC (3) Gastric bypass status for obesity (4) Hypotension (5) N&V (nausea and vomiting) Prognosis Plan Advance diet as tolerated Continue to monitor labs, hemoglobin stable at 9.6 Physical therapy and ambulate patient Dietary Evaluation Review Comments: 1. advance diet as tolerated per MD 2. Consider EN/TPN if Pt remains NPO for 48 hours Expected Outcomes/Goals: 1. Pt will consume >75% estimated needs within 2-3 days Plan discussed with: Patient, Other (Dr Jeremiah Alvares) SRINIVASAN ALVARES MD Jun 18, 2024 21:44
[2024-06-19] VITALS (8 sets, daily range): BP systolic 102–136; BP diastolic 44–61; PULSE 72–100; RESP 16–20; TEMP 98.3–100; O2SAT 90–97
[2024-06-19 06:07] LABS: Basophils # (auto) 0 10 ^3/uL (0-0.2); Basophils % (auto) 0.7 % (0.0-2.0); Eosinophils # (auto) 0.1 10 ^3/uL (0-0.8); Eosinophils % (auto) 2.6 % (0.0-7.0); Hematocrit 27.6 % (41.0-53.0); Hemoglobin 9.2 g/dL (13.5-17.5); Lymphocytes # (auto) 0.4 10 ^3/uL (0.4-5.4); Mean Corpuscular Hemoglobin 29.8 pg (28.0-32.0); Mean Corpuscular Hgb Conc. 33.2 g/dL (32.0-36.0); Mean Corpuscular Volume 89.7 fL (80.0-100.0); Monocytes # (auto) 0.5 10 ^3/uL (0-1.3); Monocytes % (auto) 9.5 % (0.0-12.0); Neutrophils # (auto) 4.4 10 ^3/uL (1.6-8.6); Neutrophils % (auto) 79.2 % (37.0-80.0); Nucleated Red Blood Cells % 0.1 %; Platelet Count (auto) 194 10^3/uL (140-450); Red Blood Cells 3.08 10^6/uL (4.5-5.90); Red Cell Distribution Width 18.6 % (11.8-14.3); White Blood Cell 5.6 10^3/uL (4.4-10.8)
[2024-06-19 06:21] LABS: Anion Gap 2 (5-15); Carbon Dioxide 32 mmol/L (20-31); Chloride 105 mmol/L (98-107); Potassium 4.2 mmol/L (3.5-5.1); Sodium 139 mmol/L (136-145)
[2024-06-19 06:22] LABS: Calcium 8.5 mg/dL (8.7-10.4)
[2024-06-19 06:27] LABS: BUN/Creatinine Ratio 25.9 (10.0-20.0); Blood Urea Nitrogen 21 mg/dL (9-23); Glucose 98 mg/dL (74-106)
--- NOTE | 2024-06-19 13:17 | DVHPN2 ---
Progress Note Date Seen: Jun 19, 2024 Medical Necessity Reason Pt with a Central, PICC or Fol: No The following are medically ne: Central Line, Grewal Catheter Reason for grewal catheter: Strict I&O Objective vital signs Vital Sign Date Time Temp Pulse Resp B/P (MAP) Pulse Ox O2 Delivery O2 Flow Rate FiO2 06/19/24 12:05 72 136/76 06/19/24 09:00 98.3 19 90 98.3 06/19/24 08:00 Nasal Cannula* 2 28 Total Intake and Output 06/18/24 06/18/24 06/19/24 15:00 23:00 07:00 Intake Total 50 ml 1125 ml 500 ml Output Total 1400 ml 500 ml Balance 50 ml -275 ml 0 ml medications Current Medications Medications Dose Ordered Sig/Jason Route Start Time Stop Time Status Last Admin Dose Admin Ondansetron HCl 4 mg Q4HP PRN IV 05/22/24 15:00 06/06/24 02:47 4 MG Acetaminophen 650 mg Q6HP PRN PO 05/22/24 15:00 05/29/24 21:55 650 MG Citalopram Hydrobromide 20 mg DAILY PO 05/23/24 10:00 06/19/24 10:33 20 MG Prochlorperazine Edisylate 10 mg Q6HP PRN IV 05/23/24 12:00 06/04/24 12:42 10 MG Atorvastatin Calcium 20 mg DAILY PO 05/24/24 10:00 06/19/24 10:33 20 MG Nortriptyline HCl 50 mg HS PO 05/23/24 22:00 06/18/24 20:05 50 MG Tamsulosin HCl 0.4 mg QPM PO 05/23/24 18:00 06/18/24 17:44 0.4 MG Docusate Calcium 240 mg DAILY PO 06/03/24 12:33 06/19/24 10:31 240 MG Metoprolol Tartrate 10 mg BID PO 06/03/24 22:00 UNV Sennosides 8.6 mg DAILYP PO 06/03/24 12:33 06/19/24 10:33 8.6 MG Duloxetine HCl 60 mg DAILY PO 06/03/24 12:34 06/19/24 10:33 60 MG Metoprolol Tartrate 25 mg BID PO 06/03/24 22:00 Hold 06/03/24 22:43 25 MG Metoprolol Tartrate 5 mg Q4HP PRN IV 06/05/24 11:15 Hold Pantoprazole Sodium 40 mg DAILY IV 06/06/24 10:00 06/19/24 10:32 40 MG Acetaminophen 650 mg Q6HP PRN NV 06/09/24 08:15 06/13/24 01:13 650 MG Enoxaparin Sodium 100 mg Q12HR SC 06/09/24 22:00 06/19/24 10:33 100 MG Metoprolol Tartrate 5 mg BID IV 06/11/24 13:45 UNV Ceftriaxone Sodium 50 ml @ 100 mls/hr DAILY@1000 IV 06/12/24 11:00 06/19/24 10:33 100 MLS/HR Labetalol HCl 10 mg Q2HPRN PRN IV 06/12/24 10:45 06/14/24 04:15 10 MG Hydralazine HCl 20 mg Q6HP PRN IV 06/14/24 03:45 Bumetanide 1 mg DAILY IV 06/16/24 12:04 Morphine Sulfate 2 mg Q4HPRN PRN IV 06/17/24 14:30 06/19/24 01:11 2 MG Diltiazem HCl 30 mg Q6HR PO 06/18/24 12:00 06/19/24 12:05 30 MG laboratory and microbiology Laboratory Tests 06/19/24 05:43 Test 06/19/24 05:43 Range/Units Serum Glucose 98 74-106 mg/dL Microbiology Date/Time Source Procedure Growth Status 06/09/24 18:42 Lung Pending Resulted 06/09/24 18:42 Lung Pending Resulted 06/09/24 18:42 Lung Pending Resulted 06/09/24 18:42 Lung Pending Resulted 06/09/24 18:42 Lung - Final See Separate Report... Resulted 06/09/24 18:42 Bronchial Washings Gram Stain - Final Complete 06/09/24 18:42 Respiratory Culture - Final Escherichia coli Complete Problem List/Assessment/Plan Problem List/Assessment/Plan AFEBRILE VSS ABD SOFT LESS DISTENDED DRESSING DRY BM + FLATUS + WBC TRENDING DOWN URINE OUTPUT IMPROVED CONDITION BETTER NURSE AT BEDSIDE SONAM SOFT DIET NO COMPLICATIONS Plan discussed with: Patient Dietary Evaluation Review Comments: 1. advance diet as tolerated per MD 2. Consider EN/TPN if Pt remains NPO for 48 hours Expected Outcomes/Goals: 1. Pt will consume >75% estimated needs within 2-3 days MARTHA ALVARES MD Jun 19, 2024 13:17
--- NOTE | 2024-06-19 13:26 | DVHPN2 ---
Progress Note - Dictate Date Seen: Jun 19, 2024 Medical Necessity Reason Pt with a Central, PICC or Fol: No The following are medically ne: Central Line, Grewal Catheter Reason for grewal catheter: Strict I&O Subjective Patient seen and evaluated in telemetry. He is hemodynamically stable. Normal sinus rhythm is seen on telemetry review. Patient remains cardiac stable at this point. Continue with current cardiac management. Will continue to follow from a cardiac perspective. vital signs Vital Sign Date Time Temp Pulse Resp B/P (MAP) Pulse Ox O2 Delivery O2 Flow Rate FiO2 06/19/24 12:05 72 136/76 06/19/24 09:00 98.3 19 90 98.3 06/19/24 08:00 Nasal Cannula* 2 28 Total Intake and Output 06/18/24 06/18/24 06/19/24 15:00 23:00 07:00 Intake Total 50 ml 1125 ml 500 ml Output Total 1400 ml 500 ml Balance 50 ml -275 ml 0 ml medications Current Medications Medications Dose Ordered Sig/Jason Route Start Time Stop Time Status Last Admin Dose Admin Ondansetron HCl 4 mg Q4HP PRN IV 05/22/24 15:00 06/06/24 02:47 4 MG Acetaminophen 650 mg Q6HP PRN PO 05/22/24 15:00 05/29/24 21:55 650 MG Citalopram Hydrobromide 20 mg DAILY PO 05/23/24 10:00 06/19/24 10:33 20 MG Prochlorperazine Edisylate 10 mg Q6HP PRN IV 05/23/24 12:00 06/04/24 12:42 10 MG Atorvastatin Calcium 20 mg DAILY PO 05/24/24 10:06/19/24 10:33 20 MG Nortriptyline HCl 50 mg HS PO 05/23/24 22:00 06/18/24 20:05 50 MG Tamsulosin HCl 0.4 mg QPM PO 05/23/24 18:00 06/18/24 17:44 0.4 MG Docusate Calcium 240 mg DAILY PO 06/03/24 12:33 06/19/24 10:31 240 MG Metoprolol Tartrate 10 mg BID PO 06/03/24 22:00 UNV Sennosides 8.6 mg DAILYP PO 06/03/24 12:33 06/19/24 10:33 8.6 MG Duloxetine HCl 60 mg DAILY PO 06/03/24 12:34 06/19/24 10:33 60 MG Metoprolol Tartrate 25 mg BID PO 06/03/24 22:00 Hold 06/03/24 22:43 25 MG Metoprolol Tartrate 5 mg Q4HP PRN IV 06/05/24 11:15 Hold Pantoprazole Sodium 40 mg DAILY IV 06/06/24 10:00 06/19/24 10:32 40 MG Acetaminophen 650 mg Q6HP PRN DC 06/09/24 08:15 06/13/24 01:13 650 MG Enoxaparin Sodium 100 mg Q12HR SC 06/09/24 22:00 06/19/24 10:33 100 MG Metoprolol Tartrate 5 mg BID IV 06/11/24 13:45 UNV Ceftriaxone Sodium 50 ml @ 100 mls/hr DAILY@1000 IV 06/12/24 11:00 06/19/24 10:33 100 MLS/HR Labetalol HCl 10 mg Q2HPRN PRN IV 06/12/24 10:45 06/14/24 04:15 10 MG Hydralazine HCl 20 mg Q6HP PRN IV 06/14/24 03:45 Bumetanide 1 mg DAILY IV 06/16/24 12:04 Morphine Sulfate 2 mg Q4HPRN PRN IV 06/17/24 14:30 06/19/24 01:11 2 MG Diltiazem HCl 30 mg Q6HR PO 06/18/24 12:00 06/19/24 12:05 30 MG laboratory and microbiology Laboratory Tests 06/19/24 05:43 Test 06/19/24 05:43 Range/Units Serum Glucose 98 74-106 mg/dL Assessment/Plan s/p Laparotomy (found to have contained bowel perforation, abscess) Has Bowel movements In tele floor Had mechanical fall and found to have hip fracture. S/p ORIF (earlier during admission course) Patient is a 74-year-old gentleman who presented on May 22, 2024 for epigastric pain. It seems that he ate sandwich in this was followed by repeated abdominal pain and vomiting. He has been admitted with small-bowel obstruction. He also was found to have gallstones and gastric outlet obstruction. He has been seen by surgery and GI. He has been having NG tube. Patient does have history of paroxysmal AFib and is on Eliquis as outpatient. On 05/24 2024, the patient was found to have tachyarrhythmia and cardiology was involved for its evaluation and management. Telemetry revealed tachyarrhythmia in the rate of 150s. Tele was in favor of SVT. Patient was attached to the monitor and 6 mg of adenosine was given which resulted in breaking of the tachyarrhythmia inpatient been back to sinus rhythm. As per patient, he usually follows with Cardiology in [facility]. As per patient, he did have angiogram (cardiac catheterization some years ago and was told that it was normal findings). Lying flat in bed and not in acute distress. No JVD. Mucosa is pink and wet. No carotid bruit. No goiter. Lungs are clear to auscultation. No thrill/gallop. Abdomen is soft. Extremities do not reveal edema Past medical history includes atrial fibrillation (on Eliquis as outpatient), DJD, heart failure (diastolic), COPD, hypertension, hyperlipidemia, reported diabetes mellitus, obesity, old history of tonsillectomy and gastric bypass surgery. He is known to have kidney stones. Echocardiogram of January 2020 revealed ejection fraction of 60% and biatrial enlargement Troponin (high sensitive): 19 - 11 TSH: 3.28 CT of the abdomen and pelvis revealed: IMPRESSION: 1. Cholelithiasis with the gallbladder distended. 2. Postop changes to the stomach with a fluid-filled distended stomach and dilated fluid-filled small bowel findings suggest small bowel obstruction. 3. Multiple bilateral nonobstructing renal calculi. 4. Prosthesis in the right hip. Chest x-ray revealed: Frontal chest radiograph demonstrates no acute osseous or superficial soft tissue abnormalities. Enteric tube visualized overlying the plane of the stomach. The trachea is midline. The cardiac silhouette and mediastinum are within normal limits. No pneumothorax, pleural effusions, or consolidations. Partially visualized gaseous distended loops of bowel. Repeat chest xry revealed: IMPRESSION: 1. Stable appearance of the support lines and tubes. 2. Bibasilar airspace disease similar to prior study. Repeat chest xry revealed: IMPRESSION: Endotracheal projects 0.7 cm above the level of the gary. Recommend retraction. HIDA scan reported: IMPRESSION: 1. Findings may reflect chronic cholecystitis, cannot exclude acute cholecystitis due to lack of 30-60 minute images. KUB revealed: IMPRESSION: Findings concerning for small bowel obstruction versus ileus. Repeat KUB revealed: FINDINGS/IMPRESSION: Dilated loops of small bowel with gas and stool visualized in the colon. Findings appear improved compared to prior exam. Repeat KUB revealed: IMPRESSION: 1. There are air-filled dilated small bowel loops. Air and stool is seen within the colon. The findings appear mildly improved comparison to the prior study. The findings fairly stable and May relate to an ileus.. Clinical correlation and continued follow-up is recommended Repeat KUB revealed: Impression: 1. Nonobstructive bowel gas pattern. Repeat KUB revealed: Findings/ Impression: Postsurgical changes of the abdomen with skin lavern noted over the right hemiabdomen. Enteric tube is noted terminating within the stomach. There are gas-filled mildly distended small bowel loops which may be due to ileus with partial bowel obstruction not excluded. There is contrast noted within the nondistended large bowel. Bibasilar atelectasis. No acute bony abnormalities. Right total hip replacement with partially visualized intramedullary speedy and dynamic screw fixation of the left proximal femur Gallbladder ultrasound reported: FINDINGS: Examination is limited. The gallbladder appears distended. The gallbladder wall measures 2 mm in thickness, within normal limits. Possible sludge in the gallbladder. Negative reported sonographic valladares's sign. The common bile duct measures 6 mm in diameter, within normal limits. The liver measures at the upper limits of normal in size, at 16.4 cm in craniocaudal dimension. Heterogeneous echotexture of the liver. The pancreas is obscured by bowel gas. The right kidney measures 9.6 cm. There is no hydronephrosis. Limited evaluation of the right kidney. Echogenic focus, possible renal calculus at the midpole measuring 1.4 cm. The patient does have renal calculi on recent CT exam. IMPRESSION: 1. Limited examination as described above. Possible gallbladder sludge and distended gallbladder. No sonographic evidence of acute cholecystitis. 2. Additional nonacute findings as described above. HIDA scan revealed: Impression: 1. Unremarkable hepatobiliary study without evidence of acute cholecystitis. Left Hip Xry: FINDINGS/IMPRESSION: There is a displaced and impacted left intertrochanteric fracture. Patient is status post right hip arthroplasty. EKG revealed SVT Tele revealed SVT which later transitioned into sinus rhythm Echocardiogram revealed: Technically limited study secondary to poor acoustic windows. Left ventricle: Mild concentric left ventricular hypertrophy was seen. LVEF was 55-60%. Right ventricle was normal size with normal systolic function. Both atria were mildly dilated. Aortic valve was not well visualized. Aortic sclerosis with no stenosis was observed. [id number] aortic insufficiency was observed. Mild mitral/tricuspid regurgitation was seen. Tricuspid valve was not well visualized. Right ventricular systolic pressure was assessed around 25 mm Hg. There was no pericardial effusion. Ascending aorta was 4.5 cm. Patient is a 74-year-old gentleman who presented with abdominal pain and is being managed for small bowel obstruction. He does have history of paroxysmal AFib. Has not been taking his medications regularly and this was followed with tachyarrhythmia. Tachyarrhythmia was in favor of SVT. SVT responded to adenosine Small-bowel obstruction Obesity History of gastric bypass Paroxysmal AFib SVT Status post adenosine management Diabetes mellitus Obesity, morbid Gallstone Renal stone s/p laparotomy bowel perforation Cardiac suggestion for management: For now, manage in tele Follow-up electrolytes and kidney function tests and correct abnormalities Keep potassium above 4 and magnesium above 2 Cardizem, oral Fluid resuscitation Surgery and GI follow up Long-term continuation of anticoagulation is suggested (for now patient on Lovenox) Further evaluation and management depends on the above and clinical course A total of 55 minutes was spent reviewing the patient record, examining the patient, making a diagnostic and therapeutic plan, discussing this plan with medical personnel, following up on diagnostic studies and following the patient for clinical stability excluding any and all procedures. At least 50% of this time was spent in direct, [id number] contact. Thank you for allowing me to participate in this patient's care. Further recommendations will depend on patient's clinical course. Please do not hesitate to contact me if you have any questions or concerns. This medical document was created using electronic medical record system with [employer] computerized dictation system. Although this document has been carefully reviewed, there may still be some phonetic and typographical errors. These areas are purely typographical due to the imperfection of the software programs, and do not reflect any compromise in the patient's medical care. Dietary Evaluation Review Comments: 1. advance diet as tolerated per MD 2. Consider EN/TPN if Pt remains NPO for 48 hours Expected Outcomes/Goals: 1. Pt will consume >75% estimated needs within 2-3 days Plan discussed with: Patient, Other (nurse) Provider Statement: I have reviewed the case with my supervising physician. We have agreed with the plan of care. GENE DAWKINS HEMODIALYSIS LAB TECHNICIAN Jun 19, 2024 13:26
--- NOTE | 2024-06-19 15:12 | DVHPN2 ---
Progress Note - Dictate Date Seen: Jun 19, 2024 Medical Necessity Reason Pt with a Central, PICC or Fol: No The following are medically ne: Central Line, Grewal Catheter Reason for grewal catheter: Strict I&O vital signs Vital Sign Date Time Temp Pulse Resp B/P (MAP) Pulse Ox O2 Delivery O2 Flow Rate FiO2 06/19/24 13:00 98.6 83 16 109/49 (69) 97 98.6 06/19/24 08:00 Nasal Cannula* 2 28 Total Intake and Output 06/18/24 06/18/24 06/19/24 15:00 23:00 07:00 Intake Total 50 ml 1125 ml 500 ml Output Total 1400 ml 500 ml Balance 50 ml -275 ml 0 ml medications Current Medications Medications Dose Ordered Sig/Jason Route Start Time Stop Time Status Last Admin Dose Admin Ondansetron HCl 4 mg Q4HP PRN IV 05/22/24 15:00 06/06/24 02:47 4 MG Acetaminophen 650 mg Q6HP PRN PO 05/22/24 15:00 05/29/24 21:55 650 MG Citalopram Hydrobromide 20 mg DAILY PO 05/23/24 10:00 06/19/24 10:33 20 MG Prochlorperazine Edisylate 10 mg Q6HP PRN IV 05/23/24 12:00 06/04/24 12:42 10 MG Atorvastatin Calcium 20 mg DAILY PO 05/24/24 10:00 06/19/24 10:33 20 MG Nortriptyline HCl 50 mg HS PO 05/23/24 22:00 06/18/24 20:05 50 MG Tamsulosin HCl 0.4 mg QPM PO 05/23/24 18:00 06/18/24 17:44 0.4 MG Docusate Calcium 240 mg DAILY PO 06/03/24 12:33 06/19/24 10:31 240 MG Metoprolol Tartrate 10 mg BID PO 06/03/24 22:00 UNV Sennosides 8.6 mg DAILYP PO 06/03/24 12:33 06/19/24 10:33 8.6 MG Duloxetine HCl 60 mg DAILY PO 06/03/24 12:34 06/19/24 10:33 60 MG Metoprolol Tartrate 25 mg BID PO 06/03/24 22:00 Hold 10/3/24 22:43 25 MG Metoprolol Tartrate 5 mg Q4HP PRN IV 06/05/24 11:15 Hold Pantoprazole Sodium 40 mg DAILY IV 06/06/24 10:00 06/19/24 10:32 40 MG Acetaminophen 650 mg Q6HP PRN OR 06/09/24 08:15 06/13/24 01:13 650 MG Enoxaparin Sodium 100 mg Q12HR SC 06/09/24 22:00 06/19/24 10:33 100 MG Metoprolol Tartrate 5 mg BID IV 06/11/24 13:45 UNV Ceftriaxone Sodium 50 ml @ 100 mls/hr DAILY@1000 IV 06/12/24 11:00 06/19/24 10:33 100 MLS/HR Labetalol HCl 10 mg Q2HPRN PRN IV 06/12/24 10:45 06/14/24 04:15 10 MG Hydralazine HCl 20 mg Q6HP PRN IV 06/14/24 03:45 Bumetanide 1 mg DAILY IV 06/16/24 12:04 Diltiazem HCl 30 mg Q6HR PO 06/18/24 12:00 06/19/24 12:05 30 MG objective General Appearance: alert, no distress HEENT: EOMI, PERRLA, normal external inspect of ears, no icterus, no nasal drainage Neck: no carotid bruit, no jugular venous distention (JVD), no lymphadenopathy Chest: normal thorax Respiratory: clear to auscultation, normal air movement Cardiovascular: regular rate and rhythm, no diastolic murmur, no jugular venous distention (JVD), no rub, no systolic murmur Abdominal: soft, no hepatomegaly, no mass, no splenomegaly, no tenderness Genitourinary: grossly normal external Musculoskeletal: no joint tenderness, no swelling Extremities: normal pulses, no calf tenderness, no clubbing, no cyanosis, no edema Skin: no bruising, no jaundice, no rash Neurological: alert, No focal deficit laboratory and microbiology Laboratory Tests 06/19/24 05:43 Test 06/19/24 05:43 Range/Units Serum Glucose 98 74-106 mg/dL Problem List 1. Small bowel obstruction Monitor, surgical consult, GI consult, NPO 2. HLD Monitor 3. Persistent atrial fibrillation Monitor, full dose Lovenox 4. Obesity Monitor 5. Hx gastric bypass Monitor 6. Benign essential HTN Monitor, antihypertensives 7. Gallstones Monitor, surgical consult, GI consult, NPO, HIDA scan 8. Sepsis Monitor 9. Septic Shock Monitor 10. Acute renal failure Monitor, nephrology consult Assessment/Plan Subjective: Patient is awake and alert. Objective: Patient is tired today. Hemoglobin is 9.2 today. Patient was seen by his general surgeon who stated patient was doing well and progressing. Patient has been tolerating his soft diet. Patient is working with physical therapy. Plan: Continue current treatment. Patient is refusing diuretics for fluid overload. dental services director consult for DC planning to SNF for continued rehab. Continue IV Rocephin for sepsis. Dietary Evaluation Review Comments: 1. advance diet as tolerated per MD 2. Consider EN/TPN if Pt remains NPO for 48 hours Expected Outcomes/Goals: 1. Pt will consume >75% estimated needs within 2-3 days Plan discussed with: Patient, Other TETO CRAMER NP Jun 19, 2024 15:12
[2024-06-19] MEDS ORDERED: KETOROLAC TROMETH 30 MG/ML 1ML VIAL IV ONE (21:00)
--- NOTE | 2024-06-19 22:02 | DVHPN2 ---
Progress Note - Dictate Date Seen: Jun 19, 2024 Medical Necessity Reason Pt with a Central, PICC or Fol: Yes The following are medically ne: Central Line, Grewal Catheter Reason for grewal catheter: Strict I&O Subjective Patient seen and examined at bedside. On supplemental oxygen Overnight events reviewed. vital signs Vital Sign Date Time Temp Pulse Resp B/P (MAP) Pulse Ox O2 Delivery O2 Flow Rate FiO2 06/19/24 17:34 62 120/64 06/19/24 16:44 99.1 19 92 99.1 06/19/24 08:00 Nasal Cannula* 2 28 Total Intake and Output 06/18/24 06/18/24 06/19/24 15:00 23:00 07:00 Intake Total 50 ml 1125 ml 500 ml Output Total 1400 ml 500 ml Balance 50 ml -275 ml 0 ml medications Current Medications Medications Dose Ordered Sig/Jason Route Start Time Stop Time Status Last Admin Dose Admin Ondansetron HCl 4 mg Q4HP PRN IV 05/22/24 15:00 06/06/24 02:47 4 MG Acetaminophen 650 mg Q6HP PRN PO 05/22/24 15:00 06/19/24 20:13 650 MG Citalopram Hydrobromide 20 mg DAILY PO 05/23/24 10:00 06/19/24 10:33 20 MG Prochlorperazine Edisylate 10 mg Q6HP PRN IV 05/23/24 12:00 06/04/24 12:42 10 MG Atorvastatin Calcium 20 mg DAILY PO 05/24/24 10:00 06/19/24 10:33 20 MG Nortriptyline HCl 50 mg HS PO 05/23/24 22:00 06/19/24 21:25 50 MG Tamsulosin HCl 0.4 mg QPM PO 05/23/24 18:00 06/19/24 17:33 0.4 MG Docusate Calcium 240 mg DAILY PO 06/03/24 12:33 06/19/24 10:31 240 MG Metoprolol Tartrate 10 mg BID PO 06/03/24 22:00 UNV Sennosides 8.6 mg DAILYP PO 06/03/24 12:33 06/19/24 10:33 8.6 MG Duloxetine HCl 60 mg DAILY PO 06/03/24 12:34 06/19/24 10:33 60 MG Metoprolol Tartrate 25 mg BID PO 06/03/24 22:00 Hold 06/03/24 22:43 25 MG Metoprolol Tartrate 5 mg Q4HP PRN IV 06/05/24 11:15 Hold Pantoprazole Sodium 40 mg DAILY IV 06/06/24 10:00 06/19/24 10:32 40 MG Acetaminophen 650 mg Q6HP PRN [place] 06/09/24 08:15 06/13/24 01:13 650 MG Enoxaparin Sodium 100 mg Q12HR SC 06/09/24 22:00 06/19/24 21:26 100 MG Metoprolol Tartrate 5 mg BID IV 06/11/24 13:45 UNV Labetalol HCl 10 mg Q2HPRN PRN IV 06/12/24 10:45 06/14/24 04:15 10 MG Hydralazine HCl 20 mg Q6HP PRN IV 06/14/24 03:45 Diltiazem HCl 30 mg Q6HR PO 06/18/24 12:00 06/19/24 17:34 30 MG Acetaminophen/ Hydrocodone Bitart 1 tab Q8HPRN PRN PO 06/19/24 22:00 objective Gen.: Patient lying in bed in no apparent distress. On supplemental oxygen Head: Normocephalic, atraumatic Eyes: EOMI/PERRLA. Ears: Normal hearing. Normal anatomy. Neck/trachea: Trachea midline, supple. Nose: Normal external anatomy. Mouth: Moist mucous membranes. Chest: Decreased air entry bilaterally. No wheezing or rhonchi. Cardio vascular: Positive S1, positive S2. Regular rate and rhythm. Abdomen: Positive bowel sounds in all 4 quadrants. Soft, non-tender, non- distended. : Deferred. Rectal: Deferred Skin: Warm, dry. Extremities: 2+ radial pulses bilaterally. No lower extremity edema. Neuro: Awake, alert, oriented x3. No gross motor or sensory deficits. Cranial nerves II through XII intact. Gait not assessed. laboratory and microbiology Laboratory Tests 06/19/24 05:43 Test 06/19/24 05:43 Range/Units Serum Glucose 98 74-106 mg/dL Assessment/Plan Impression: Septic shock Acute hypoxic respiratory failure Acute kidney injury, resolved Small bowel obstruction, improving Atrial fibrillation Hx of gastric bypass ([id number]) Obesity, BMI 34.2 Atelectasis Events: On supplemental oxygen, 2 LPM NC Taper O2 as tolerated Monitor hemoglobin - 9.2 g/dL S/p 1 unit PRBC transfusion on 06/18. Continue antibiotics Incentive spirometry Pain control Avoid oversedation TPN for nutritional support. On soft diet Advance diet as tolerated Head of bed elevation Aspiration precautions LR at 100 ml/hr for IV fluid hydration Off Bumex Wound care. GI prophylaxis w/ Protonix DVT prophylaxis w/ therapeutic Lovenox Patient is s/p exploratory laparotomy with lysis of adhesions. Rest of plan as noted below. Plan: S/p central line placement. Needed for administration of pressors. S/p extubation. On supplemental oxygen, 2 LPM NC Taper O2 as tolerated Antibiotics GI recommendations appreciated. Monitor WBC Hemoglobin - monitor Monitor renal function. Monitor electrolytes. Supplement as necessary. Monitor ins and outs. Creatinine trending down. Diet and lifestyle modifications discussed Obesity - complicates all care. GI/DVT prophylaxis. Prognosis: Poor given patient's multiple co-morbidities. Rest of plan per hospitalist and other consultants. Thank you S JENNA Mcnamara, for allowing me to participate in this patient's care. Further recommendations will depend on the patient's clinical course. Please do not hesitate to contact me if you have any questions or concerns. This medical document was created using an electronic medical record system with [employer] dictation system. Although these documentations are being carefully reviewed, there may still be some phonetic and typographical changes. The errors are purely typographical, due to imperfection on the software program, and do not reflect any compromise in the patient's medical care Dietary Evaluation Review Comments: 1. advance diet as tolerated per 2. Consider EN/TPN if Pt remains NPO for 48 hours Expected Outcomes/Goals: 1. Pt will consume >75% estimated needs within 2-3 days Plan discussed with: Patient, Other (RN) PRISCILLA CORREA MD Jun 19, 2024 22:02
[2024-06-19] MEDS: HYDROcodone-ACET 5/325MG TAB PO PRN (23:45)
[2024-06-20] VITALS (10 sets, daily range): BP systolic 123–144; BP diastolic 53–85; PULSE 68–86; RESP 16–20; TEMP 98.2–101.4; O2SAT 92–95
[2024-06-20 06:56] LABS: Basophils # (auto) 0 10 ^3/uL (0-0.2); Eosinophils # (auto) 0.1 10 ^3/uL (0-0.8); Eosinophils % (auto) 1.7 % (0.0-7.0); Hematocrit 26.4 % (41.0-53.0); Hemoglobin 8.6 g/dL (13.5-17.5); Lymphocytes # (auto) 0.7 10 ^3/uL (0.4-5.4); Lymphocytes % (auto) 19.4 % (10.0-50.0); Mean Corpuscular Hemoglobin 29.7 pg (28.0-32.0); Mean Corpuscular Hgb Conc. 32.4 g/dL (32.0-36.0); Mean Corpuscular Volume 91.8 fL (80.0-100.0); Monocytes # (auto) 0.4 10 ^3/uL (0-1.3); Monocytes % (auto) 12.7 % (0.0-12.0); Neutrophils # (auto) 2.2 10 ^3/uL (1.6-8.6); Neutrophils % (auto) 65.2 % (37.0-80.0); Nucleated Red Blood Cells % 0.8 %; Platelet Count (auto) 176 10^3/uL (140-450); Red Blood Cells 2.88 10^6/uL (4.5-5.90); Red Cell Distribution Width 18.8 % (11.8-14.3); White Blood Cell 3.4 10^3/uL (4.4-10.8)
[2024-06-20 07:08] LABS: Calcium 8.1 mg/dL (8.7-10.4); Chloride 106 mmol/L (98-107); Sodium 137 mmol/L (136-145)
[2024-06-20 07:09] LABS: Anion Gap 4 (5-15); Carbon Dioxide 27 mmol/L (20-31)
[2024-06-20 07:14] LABS: BUN/Creatinine Ratio 14.9 (10.0-20.0); Blood Urea Nitrogen 11 mg/dL (9-23); Glucose 86 mg/dL (74-106)
--- NOTE | 2024-06-20 11:21 | DVHPN2 ---
Progress Note - Dictate Date Seen: Jun 20, 2024 Medical Necessity Reason Pt with a Central, PICC or Fol: Yes The following are medically ne: Central Line, Grewal Catheter Reason for grewal catheter: Strict I&O Subjective Arturo is seen and evaluated at the bedside in telemetry. No acute distress noted. Patient does complain of some nosebleeding while coughing and sneezing but is otherwise without complaints. Stevens remains hemodynamically stable with normal sinus rhythm seen on telemetry review. Hemoglobin today is 8.6. Continue with diltiazem 30 mg every 6 hours and anticoagulation for CVA prophylaxis using therapeutic Lovenox. Further recommendation will depend on patient's clinical progression. Will continue to follow from a cardiac perspective. vital signs Vital Sign Date Time Temp Pulse Resp B/P (MAP) Pulse Ox O2 Delivery O2 Flow Rate FiO2 06/20/24 09:00 98.9 72 17 125/53 (77) 95 98.9 06/19/24 20:00 Nasal Cannula* 2 28 Total Intake and Output 06/19/24 06/19/24 06/20/24 15:00 23:00 07:00 Intake Total 450 ml 850 ml Output Total 800 ml 1400 ml Balance -350 ml -550 ml medications Current Medications Medications Dose Ordered Sig/Jason Route Start Time Stop Time Status Last Admin Dose Admin Ondansetron HCl 4 mg Q4HP PRN IV 05/22/24 15:00 06/06/24 02:47 4 MG Acetaminophen 650 mg Q6HP PRN PO 05/22/24 15:00 06/20/24 06:28 650 MG Citalopram Hydrobromide 20 mg DAILY PO 05/23/24 10:00 06/20/24 10:30 20 MG Prochlorperazine Edisylate 10 mg Q6HP PRN IV 05/23/24 12:00 06/04/24 12:42 10 MG Atorvastatin Calcium 20 mg DAILY PO 05/24/24 10:06/20/24 10:30 20 MG Nortriptyline HCl 50 mg HS PO 05/23/24 22:00 06/19/24 21:25 50 MG Tamsulosin HCl 0.4 mg QPM PO 05/23/24 18:00 06/19/24 17:33 0.4 MG Docusate Calcium 240 mg DAILY PO 06/03/24 12:33 06/20/24 10:29 240 MG Metoprolol Tartrate 10 mg BID PO 06/03/24 22:00 UNV Sennosides 8.6 mg DAILYP PO 06/03/24 12:33 06/20/24 10:30 8.6 MG Duloxetine HCl 60 mg DAILY PO 06/03/24 12:34 06/20/24 10:30 60 MG Metoprolol Tartrate 25 mg BID PO 06/03/24 22:00 Hold 06/03/24 22:43 25 MG Metoprolol Tartrate 5 mg Q4HP PRN IV 06/05/24 11:15 Hold Pantoprazole Sodium 40 mg DAILY IV 06/06/24 10:00 06/20/24 10:32 40 MG Acetaminophen 650 mg Q6HP PRN SD 06/09/24 08:15 06/13/24 01:13 650 MG Enoxaparin Sodium 100 mg Q12HR SC 06/09/24 22:00 06/20/24 10:32 100 MG Metoprolol Tartrate 5 mg BID IV 06/11/24 13:45 UNV Labetalol HCl 10 mg Q2HPRN PRN IV 06/12/24 10:45 06/14/24 04:15 10 MG Hydralazine HCl 20 mg Q6HP PRN IV 06/14/24 03:45 Diltiazem HCl 30 mg Q6HR PO 06/18/24 12:00 06/20/24 06:27 30 MG Acetaminophen/ Hydrocodone Bitart 1 tab Q8HPRN PRN PO 06/19/24 22:00 06/20/24 10:32 1 TAB laboratory and microbiology Laboratory Tests 06/20/24 05:31 Test 06/20/24 05:31 Range/Units Serum Glucose 86 74-106 mg/dL Assessment/Plan s/p Laparotomy (found to have contained bowel perforation, abscess) Has Bowel movements In tele floor Had mechanical fall and found to have hip fracture. S/p ORIF (earlier during admission course) Patient is a 74-year-old gentleman who presented on May 22, 2024 for epigastric pain. It seems that he ate sandwich in this was followed by repeated abdominal pain and vomiting. He has been admitted with small-bowel obstruction. He also was found to have gallstones and gastric outlet obstruction. He has been seen by surgery and GI. He has been having NG tube. Patient does have history of paroxysmal AFib and is on Eliquis as outpatient. On 05/24 2024, the patient was found to have tachyarrhythmia and cardiology was involved for its evaluation and management. Telemetry revealed tachyarrhythmia in the rate of 150s. Tele was in favor of SVT. Patient was attached to the monitor and 6 mg of adenosine was given which resulted in breaking of the tachyarrhythmia inpatient been back to sinus rhythm. As per patient, he usually follows with Cardiology in [facility]. As per patient, he did have angiogram (cardiac catheterization some years ago and was told that it was normal findings). Lying flat in bed and not in acute distress. No JVD. Mucosa is pink and wet. No carotid bruit. No goiter. Lungs are clear to auscultation. No thrill/gallop. Abdomen is soft. Extremities do not reveal edema Past medical history includes atrial fibrillation (on Eliquis as outpatient), DJD, heart failure (diastolic), COPD, hypertension, hyperlipidemia, reported diabetes mellitus, obesity, old history of tonsillectomy and gastric bypass surgery. He is known to have kidney stones. Echocardiogram of January 2020 revealed ejection fraction of 60% and biatrial enlargement Troponin (high sensitive): 19 - 11 TSH: 3.28 CT of the abdomen and pelvis revealed: IMPRESSION: 1. Cholelithiasis with the gallbladder distended. 2. Postop changes to the stomach with a fluid-filled distended stomach and dilated fluid-filled small bowel findings suggest small bowel obstruction. 3. Multiple bilateral nonobstructing renal calculi. 4. Prosthesis in the right hip. Chest x-ray revealed: Frontal chest radiograph demonstrates no acute osseous or superficial soft tissue abnormalities. Enteric tube visualized overlying the plane of the stomach. The trachea is midline. The cardiac silhouette and mediastinum are within normal limits. No pneumothorax, pleural effusions, or consolidations. Partially visualized gaseous distended loops of bowel. Repeat chest xry revealed: IMPRESSION: 1. Stable appearance of the support lines and tubes. 2. Bibasilar airspace disease similar to prior study. Repeat chest xry revealed: IMPRESSION: Endotracheal projects 0.7 cm above the level of the gary. Recommend retraction. HIDA scan reported: IMPRESSION: 1. Findings may reflect chronic cholecystitis, cannot exclude acute cholecystitis due to lack of 30-60 minute images. KUB revealed: IMPRESSION: Findings concerning for small bowel obstruction versus ileus. Repeat KUB revealed: FINDINGS/IMPRESSION: Dilated loops of small bowel with gas and stool visualized in the colon. Findings appear improved compared to prior exam. Repeat KUB revealed: IMPRESSION: 1. There are air-filled dilated small bowel loops. Air and stool is seen within the colon. The findings appear mildly improved comparison to the prior study. The findings fairly stable and May relate to an ileus.. Clinical correlation and continued follow-up is recommended Repeat KUB revealed: Impression: 1. Nonobstructive bowel gas pattern. Repeat KUB revealed: Findings/ Impression: Postsurgical changes of the abdomen with skin lavern noted over the right hemiabdomen. Enteric tube is noted terminating within the stomach. There are gas-filled mildly distended small bowel loops which may be due to ileus with partial bowel obstruction not excluded. There is contrast noted within the nondistended large bowel. Bibasilar atelectasis. No acute bony abnormalities. Right total hip replacement with partially visualized intramedullary speedy and dynamic screw fixation of the left proximal femur Gallbladder ultrasound reported: FINDINGS: Examination is limited. The gallbladder appears distended. The gallbladder wall measures 2 mm in thickness, within normal limits. Possible sludge in the gallbladder. Negative reported sonographic valladares's sign. The common bile duct measures 6 mm in diameter, within normal limits. The liver measures at the upper limits of normal in size, at 16.4 cm in craniocaudal dimension. Heterogeneous echotexture of the liver. The pancreas is obscured by bowel gas. The right kidney measures 9.6 cm. There is no hydronephrosis. Limited evaluation of the right kidney. Echogenic focus, possible renal calculus at the midpole measuring 1.4 cm. The patient does have renal calculi on recent CT exam. IMPRESSION: 1. Limited examination as described above. Possible gallbladder sludge and distended gallbladder. No sonographic evidence of acute cholecystitis. 2. Additional nonacute findings as described above. HIDA scan revealed: Impression: 1. Unremarkable hepatobiliary study without evidence of acute cholecystitis. Left Hip Xry: FINDINGS/IMPRESSION: There is a displaced and impacted left intertrochanteric fracture. Patient is status post right hip arthroplasty. EKG revealed SVT Tele revealed SVT which later transitioned into sinus rhythm Echocardiogram revealed: Technically limited study secondary to poor acoustic windows. Left ventricle: Mild concentric left ventricular hypertrophy was seen. LVEF was 55-60%. Right ventricle was normal size with normal systolic function. Both atria were mildly dilated. Aortic valve was not well visualized. Aortic sclerosis with no stenosis was observed. [id number] aortic insufficiency was observed. Mild mitral/tricuspid regurgitation was seen. Tricuspid valve was not well visualized. Right ventricular systolic pressure was assessed around 25 mm Hg. There was no pericardial effusion. Ascending aorta was 4.5 cm. Patient is a 74-year-old gentleman who presented with abdominal pain and is being managed for small bowel obstruction. He does have history of paroxysmal AFib. Has not been taking his medications regularly and this was followed with tachyarrhythmia. Tachyarrhythmia was in favor of SVT. SVT responded to adenosine Small-bowel obstruction Obesity History of gastric bypass Paroxysmal AFib SVT Status post adenosine management Diabetes mellitus Obesity, morbid Gallstone Renal stone s/p laparotomy bowel perforation Cardiac suggestion for management: For now, manage in tele Follow-up electrolytes and kidney function tests and correct abnormalities Keep potassium above 4 and magnesium above 2 Cardizem, oral Fluid resuscitation Surgery and GI follow up Long-term continuation of anticoagulation is suggested (for now patient on Lovenox) Further evaluation and management depends on the above and clinical course A total of 55 minutes was spent reviewing the patient record, examining the patient, making a diagnostic and therapeutic plan, discussing this plan with medical personnel, following up on diagnostic studies and following the patient for clinical stability excluding any and all procedures. At least 50% of this time was spent in direct, [id number] contact. Thank you for allowing me to participate in this patient's care. Further recommendations will depend on patient's clinical course. Please do not hesitate to contact me if you have any questions or concerns. This medical document was created using electronic medical record system with [employer] computerized dictation system. Although this document has been carefully reviewed, there may still be some phonetic and typographical errors. These areas are purely typographical due to the imperfection of the software programs, and do not reflect any compromise in the patient's medical care. Dietary Evaluation Review Comments: 1. advance diet as tolerated per MD 2. Consider EN/TPN if Pt remains NPO for 48 hours Expected Outcomes/Goals: 1. Pt will consume >75% estimated needs within 2-3 days Plan discussed with: Patient, Other (RN) Provider Statement: I have reviewed the case with my supervising physician. We have agreed with the plan of care. GENE DAWKINSP Jun 20, 2024 11:21
--- NOTE | 2024-06-20 11:43 | DVHPN2 ---
Progress Note - Dictate Date Seen: Jun 20, 2024 Medical Necessity Reason Pt with a Central, PICC or Fol: Yes The following are medically ne: Central Line, Grewal Catheter Reason for grewal catheter: Strict I&O vital signs Vital Sign Date Time Temp Pulse Resp B/P (MAP) Pulse Ox O2 Delivery O2 Flow Rate FiO2 06/20/24 09:00 98.9 72 17 125/53 (77) 95 98.9 06/19/24 20:00 Nasal Cannula* 2 28 Total Intake and Output 06/19/24 06/19/24 06/20/24 15:00 23:00 07:00 Intake Total 450 ml 850 ml Output Total 800 ml 1400 ml Balance -350 ml -550 ml medications Current Medications Medications Dose Ordered Sig/Jason Route Start Time Stop Time Status Last Admin Dose Admin Ondansetron HCl 4 mg Q4HP PRN IV 05/22/24 15:00 06/06/24 02:47 4 MG Acetaminophen 650 mg Q6HP PRN PO 05/22/24 15:00 06/20/24 06:28 650 MG Citalopram Hydrobromide 20 mg DAILY PO 05/23/24 10:00 06/20/24 10:30 20 MG Prochlorperazine Edisylate 10 mg Q6HP PRN IV 05/23/24 12:00 06/04/24 12:42 10 MG Atorvastatin Calcium 20 mg DAILY PO 05/24/24 10:00 06/20/24 10:30 20 MG Nortriptyline HCl 50 mg HS PO 05/23/24 22:00 06/19/24 21:25 50 MG Tamsulosin HCl 0.4 mg QPM PO 05/23/24 18:00 06/19/24 17:33 0.4 MG Docusate Calcium 240 mg DAILY PO 06/03/24 12:33 06/20/24 10:29 240 MG Metoprolol Tartrate 10 mg BID PO 06/03/24 22:00 UNV Sennosides 8.6 mg DAILYP PO 06/03/24 12:33 06/20/24 10:30 8.6 MG Duloxetine HCl 60 mg DAILY PO 06/03/24 12:34 06/20/24 10:30 60 MG Metoprolol Tartrate 25 mg BID PO 06/03/24 22:00 Hold 06/03/24 22:43 25 MG Metoprolol Tartrate 5 mg Q4HP PRN IV 06/05/24 11:15 Hold Pantoprazole Sodium 40 mg DAILY IV 06/06/24 10:00 06/20/24 10:32 40 MG Acetaminophen 650 mg Q6HP PRN [place] 06/09/24 08:15 06/13/24 01:13 650 MG Enoxaparin Sodium 100 mg Q12HR SC 06/09/24 22:00 06/20/24 10:32 100 MG Metoprolol Tartrate 5 mg BID IV 06/11/24 13:45 UNV Labetalol HCl 10 mg Q2HPRN PRN IV 06/12/24 10:45 06/14/24 04:15 10 MG Hydralazine HCl 20 mg Q6HP PRN IV 06/14/24 03:45 Diltiazem HCl 30 mg Q6HR PO 06/18/24 12:00 06/20/24 06:27 30 MG Acetaminophen/ Hydrocodone Bitart 1 tab Q8HPRN PRN PO 06/19/24 22:00 06/20/24 10:32 1 TAB objective General Appearance: alert, no distress HEENT: EOMI, PERRLA, normal external inspect of ears, no icterus, no nasal drainage Neck: no carotid bruit, no jugular venous distention (JVD), no lymphadenopathy Chest: normal thorax Respiratory: clear to auscultation, normal air movement Cardiovascular: regular rate and rhythm, no diastolic murmur, no jugular venous distention (JVD), no rub, no systolic murmur Abdominal: soft, no hepatomegaly, no mass, no splenomegaly, no tenderness Genitourinary: grossly normal external Musculoskeletal: no joint tenderness, no swelling Extremities: normal pulses, no calf tenderness, no clubbing, no cyanosis, no edema Skin: no bruising, no jaundice, no rash Neurological: alert, No focal deficit laboratory and microbiology Laboratory Tests 06/20/24 05:31 Test 06/20/24 05:31 Range/Units Serum Glucose 86 74-106 mg/dL Problem List 1. Small bowel obstruction Monitor, surgical consult, GI consult, NPO 2. HLD Monitor 3. Persistent atrial fibrillation Monitor, full dose Lovenox 4. Obesity Monitor 5. Hx gastric bypass Monitor 6. Benign essential HTN Monitor, antihypertensives 7. Gallstones Monitor, surgical consult, GI consult, NPO, HIDA scan 8. Sepsis Monitor 9. Septic Shock Monitor 10. Acute renal failure Monitor, nephrology consult Assessment/Plan Subjective: Patient is awake and alert. Objective: Patient was on phone discussing bills. Patient was not in any acute distress. Hemoglobin is 8.6. Platelet count is 176. Patient is requesting to discharge home. Patient has only been able to dangle on the side of the bed. Patient is tolerating soft diet. Plan: Continue PT. Attempt to have physical therapy see patient twice a day. Patient to continue soft diet. Labs are currently stable. Discharge planning home versus SNF. Dietary Evaluation Review Comments: 1. advance diet as tolerated per MD 2. Consider EN/TPN if Pt remains NPO for 48 hours Expected Outcomes/Goals: 1. Pt will consume >75% estimated needs within 2-3 days Plan discussed with: Patient, Other [employer] OPERATOR Jun 20, 2024 11:43
[2024-06-20] MEDS: POLYETHYLENE GLYCOL 17 GM PWDR PO SCH (11:45)
--- NOTE | 2024-06-20 12:18 | DVHPN2 ---
Progress Note - Dictate Date Seen: Jun 20, 2024 Medical Necessity Reason Pt with a Central, PICC or Fol: Yes The following are medically ne: Central Line, Grewal Catheter Reason for grewal catheter: Strict I&O Subjective No new complaints Patient is awake responsive Patient is tolerating a soft mechanical diet He is on supplemental oxygen Patient is having bowel activity No active GI bleeding was reported Patient was ambulating undergoing physical therapy PROCEDURES: Exploratory laparotomy with drainage of intra-abdominal abscess, lysis of adhesions, and small bowel resection and anastomosis with revision of the distal gastric bypass anastomosis. vital signs Vital Sign Date Time Temp Pulse Resp B/P (MAP) Pulse Ox O2 Delivery O2 Flow Rate FiO2 06/20/24 09:00 98.9 72 17 125/53 (77) 95 98.9 06/19/24 20:00 Nasal Cannula* 2 28 Total Intake and Output 06/19/24 06/19/24 06/20/24 15:00 23:00 07:00 Intake Total 450 ml 850 ml Output Total 800 ml 1400 ml Balance -350 ml -550 ml medications Current Medications Medications Dose Ordered Sig/Jason Route Start Time Stop Time Status Last Admin Dose Admin Ondansetron HCl 4 mg Q4HP PRN IV 05/22/24 15:00 06/06/24 02:47 4 MG Acetaminophen 650 mg Q6HP PRN PO 05/22/24 15:00 06/20/24 06:28 650 MG Citalopram Hydrobromide 20 mg DAILY PO 05/23/24 10:00 06/20/24 10:30 20 MG Prochlorperazine Edisylate 10 mg Q6HP PRN IV 05/23/24 12:00 06/04/24 12:42 10 MG Atorvastatin Calcium 20 mg DAILY PO 05/24/24 10:00 06/20/24 10:30 20 MG Nortriptyline HCl 50 mg HS PO 05/23/24 22:00 06/19/24 21:25 50 MG Tamsulosin HCl 0.4 mg QPM PO 05/23/24 18:00 06/19/24 17:33 0.4 MG Docusate Calcium 240 mg DAILY PO 06/03/24 12:33 06/20/24 10:29 240 MG Metoprolol Tartrate 10 mg BID PO 06/03/24 22:00 UNV Sennosides 8.6 mg DAILYP PO 06/03/24 12:33 06/20/24 10:30 8.6 MG Duloxetine HCl 60 mg DAILY PO 06/03/24 12:34 06/20/24 10:30 60 MG Metoprolol Tartrate 25 mg BID PO 06/03/24 22:00 Hold 06/03/24 22:43 25 MG Metoprolol Tartrate 5 mg Q4HP PRN IV 06/05/24 11:15 Hold Pantoprazole Sodium 40 mg DAILY IV 06/06/24 10:00 06/20/24 10:32 40 MG Acetaminophen 650 mg Q6HP PRN [place] 06/09/24 08:15 06/13/24 01:13 650 MG Enoxaparin Sodium 100 mg Q12HR SC 06/09/24 22:00 06/20/24 10:32 100 MG Metoprolol Tartrate 5 mg BID IV 06/11/24 13:45 UNV Labetalol HCl 10 mg Q2HPRN PRN IV 06/12/24 10:45 06/14/24 04:15 10 MG Hydralazine HCl 20 mg Q6HP PRN IV 06/14/24 03:45 Diltiazem HCl 30 mg Q6HR PO 06/18/24 12:00 06/20/24 06:27 30 MG Acetaminophen/ Hydrocodone Bitart 1 tab Q8HPRN PRN PO 06/19/24 22:00 06/20/24 10:32 1 TAB Polyethylene Glycol 17 gm DAILY PO 06/20/24 11:45 objective General Appearance: Intubated off sedation starting to wake up on CPAP trial HEENT: EOMI, PERRLA, normal external inspect of ears, no icterus, no nasal drainage Neck: no carotid bruit, no jugular venous distention (JVD), no lymphadenopathy Chest: normal thorax Respiratory: clear to auscultation, normal air movement Cardiovascular: regular rate and rhythm, no diastolic murmur, no jugular venous distention (JVD), no rub, no systolic murmur Abdominal: soft, no hepatomegaly, no mass, no splenomegaly, dressing dry binder in place GIANNA drain Musculoskeletal: no joint tenderness, no swelling Extremities: normal pulses, no calf tenderness, no clubbing, no cyanosis, no edema Skin: no bruising, no jaundice, no rash Neurological: alert, No focal deficit laboratory and microbiology Laboratory Tests 10/20/24 05:31 Test 06/20/24 05:31 Range/Units Serum Glucose 86 74-106 mg/dL Problems(with codes): (1) CHRONIC DIASTOLIC HRT FAILURE (2) INTESTINAL OBSTRUCT NOS (3) N&V (nausea and vomiting) Prognosis Plan Advance diet as tolerated Physical therapy Discharge planning Patient wishes to arrange home health care through the [facility] Dietary Evaluation Review Comments: 1. advance diet as tolerated per MD 2. Consider EN/TPN if Pt remains NPO for 48 hours Expected Outcomes/Goals: 1. Pt will consume >75% estimated needs within 2-3 days Plan discussed with: Patient SRINIVASAN ALVARES MD Jun 20, 2024 12:18
--- NOTE | 2024-06-20 17:34 | DVHPN2 ---
Progress Note Date Seen: Jun 20, 2024 Medical Necessity Reason Pt with a Central, PICC or Fol: Yes The following are medically ne: Central Line, Grewal Catheter Reason for grewal catheter: Strict I&O Objective vital signs Vital Sign Date Time Temp Pulse Resp B/P (MAP) Pulse Ox O2 Delivery O2 Flow Rate FiO2 06/20/24 13:06 72 123/56 06/20/24 13:00 98.2 17 95 98.2 06/20/24 08:02 Nasal Cannula* 2 28 Total Intake and Output 06/19/24 06/19/24 06/20/24 15:00 23:00 07:00 Intake Total 450 ml 850 ml Output Total 800 ml 1400 ml Balance -350 ml -550 ml medications Current Medications Medications Dose Ordered Sig/Jason Route Start Time Stop Time Status Last Admin Dose Admin Ondansetron HCl 4 mg Q4HP PRN IV 05/22/24 15:00 06/06/24 02:47 4 MG Acetaminophen 650 mg Q6HP PRN PO 05/22/24 15:00 06/20/24 06:28 650 MG Citalopram Hydrobromide 20 mg DAILY PO 05/23/24 10:00 06/20/24 10:30 20 MG Prochlorperazine Edisylate 10 mg Q6HP PRN IV 05/23/24 12:00 06/04/24 12:42 10 MG Atorvastatin Calcium 20 mg DAILY PO 05/24/24 10:00 06/20/24 10:30 20 MG Nortriptyline HCl 50 mg HS PO 05/23/24 22:00 06/19/24 21:25 50 MG Tamsulosin HCl 0.4 mg QPM PO 05/23/24 18:00 06/19/24 17:33 0.4 MG Docusate Calcium 240 mg DAILY PO 06/03/24 12:33 06/20/24 10:29 240 MG Metoprolol Tartrate 10 mg BID PO 06/03/24 22:00 UNV Sennosides 8.6 mg DAILYP PO 06/03/24 12:33 06/20/24 10:30 8.6 MG Duloxetine HCl 60 mg DAILY PO 06/03/24 12:34 06/20/24 10:30 60 MG Metoprolol Tartrate 25 mg BID PO 06/03/24 22:00 Hold 06/03/24 22:43 25 MG Metoprolol Tartrate 5 mg Q4HP PRN IV 06/05/24 11:15 Hold Pantoprazole Sodium 40 mg DAILY IV 06/06/24 10:00 06/20/24 10:32 40 MG Acetaminophen 650 mg Q6HP PRN [place] 06/09/24 08:15 06/13/24 01:13 650 MG Enoxaparin Sodium 100 mg Q12HR SC 06/09/24 22:00 06/20/24 10:32 100 MG Metoprolol Tartrate 5 mg BID IV 06/11/24 13:45 UNV Labetalol HCl 10 mg Q2HPRN PRN IV 06/12/24 10:45 06/14/24 04:15 10 MG Hydralazine HCl 20 mg Q6HP PRN IV 06/14/24 03:45 Diltiazem HCl 30 mg Q6HR PO 06/18/24 12:00 06/20/24 13:06 30 MG Acetaminophen/ Hydrocodone Bitart 1 tab Q8HPRN PRN PO 06/19/24 22:00 06/20/24 10:32 1 TAB Polyethylene Glycol 17 gm DAILY PO 06/20/24 11:45 06/20/24 11:45 17 GM laboratory and microbiology Laboratory Tests 06/20/24 05:31 Test 06/20/24 05:31 Range/Units Serum Glucose 86 74-106 mg/dL Microbiology Date/Time Source Procedure Growth Status 06/09/24 18:42 Lung Pending Resulted 06/09/24 18:42 Lung Pending Resulted 06/09/24 18:42 Lung Pending Resulted 06/09/24 18:42 Lung Pending Resulted 06/09/24 18:42 Lung - Final See Separate Report... Resulted 06/09/24 18:42 Bronchial Washings Gram Stain - Final Complete 06/09/24 18:42 Respiratory Culture - Final Escherichia coli Complete Problem List/Assessment/Plan Problem List/Assessment/Plan AFEBRILE VSS ABD SOFT LESS DISTENDED DRESSING DRY BM + FLATUS + WBC TRENDING DOWN URINE OUTPUT IMPROVED CONDITION BETTER NURSE AT BEDSIDE SONAM SOFT DIET NO COMPLICATIONS PHYSICAL THERAPY FOR AMBULATION Plan discussed with: Patient Dietary Evaluation Review Comments: 1. advance diet as tolerated per MD 2. Consider EN/TPN if Pt remains NPO for 48 hours Expected Outcomes/Goals: 1. Pt will consume >75% estimated needs within 2-3 days MARTHA ALVARES MD Jun 20, 2024 17:34
--- NOTE | 2024-06-20 23:32 | DVHPN2 ---
Progress Note - Dictate Date Seen: Jun 20, 2024 Medical Necessity Reason Pt with a Central, PICC or Fol: No The following are medically ne: Central Line, Grewal Catheter Reason for grewal catheter: Strict I&O Subjective Patient seen and examined at bedside. On supplemental oxygen Overnight events reviewed. vital signs Vital Sign Date Time Temp Pulse Resp B/P (MAP) Pulse Ox O2 Delivery O2 Flow Rate FiO2 06/20/24 23:18 82 134/56 06/20/24 22:00 100.1 100.1 06/20/24 21:00 20 93 06/20/24 20:00 Nasal Cannula* 2 28 Total Intake and Output 06/19/24 06/19/24 06/20/24 14:59 22:59 06:59 Intake Total 450 ml 850 ml Output Total 800 ml 1400 ml Balance -350 ml -550 ml medications Current Medications Medications Dose Ordered Sig/Jason Route Start Time Stop Time Status Last Admin Dose Admin Ondansetron HCl 4 mg Q4HP PRN IV 05/22/24 15:00 06/06/24 02:47 4 MG Acetaminophen 650 mg Q6HP PRN PO 05/22/24 15:00 06/20/24 06:28 650 MG Citalopram Hydrobromide 20 mg DAILY PO 05/23/24 10:00 06/20/24 10:30 20 MG Prochlorperazine Edisylate 10 mg Q6HP PRN IV 05/23/24 12:00 06/04/24 12:42 10 MG Atorvastatin Calcium 20 mg DAILY PO 05/24/24 10:00 06/20/24 10:30 20 MG Nortriptyline HCl 50 mg HS PO 05/23/24 22:00 06/20/24 21:21 50 MG Tamsulosin HCl 0.4 mg QPM PO 05/23/24 18:00 06/20/24 18:08 0.4 MG Docusate Calcium 240 mg DAILY PO 06/03/24 12:33 06/20/24 10:29 240 MG Metoprolol Tartrate 10 mg BID PO 06/03/24 22:00 UNV Sennosides 8.6 mg DAILYP PO 06/03/24 12:33 06/20/24 10:30 8.6 MG Duloxetine HCl 60 mg DAILY PO 06/03/24 12:34 06/20/24 10:30 60 MG Metoprolol Tartrate 25 mg BID PO 06/03/24 22:00 Hold 06/03/24 22:43 25 MG Metoprolol Tartrate 5 mg Q4HP PRN IV 06/05/24 11:15 Hold Pantoprazole Sodium 40 mg DAILY IV 06/06/24 10:00 06/20/24 10:32 40 MG Acetaminophen 650 mg Q6HP PRN [place] 06/09/24 08:15 06/13/24 01:13 650 MG Enoxaparin Sodium 100 mg Q12HR SC 06/09/24 22:00 06/20/24 10:32 100 MG Metoprolol Tartrate 5 mg BID IV 06/11/24 13:45 UNV Labetalol HCl 10 mg Q2HPRN PRN IV 06/12/24 10:45 06/14/24 04:15 10 MG Hydralazine HCl 20 mg Q6HP PRN IV 06/14/24 03:45 Diltiazem HCl 30 mg Q6HR PO 06/18/24 12:00 06/20/24 23:18 30 MG Acetaminophen/ Hydrocodone Bitart 1 tab Q8HPRN PRN PO 06/19/24 22:00 06/20/24 20:08 1 TAB Polyethylene Glycol 17 gm DAILY PO 06/20/24 11:45 06/20/24 11:45 17 GM objective Gen.: Patient lying in bed in no apparent distress. On supplemental oxygen Head: Normocephalic, atraumatic Eyes: EOMI/PERRLA. Ears: Normal hearing. Normal anatomy. Neck/trachea: Trachea midline, supple. Nose: Normal external anatomy. Mouth: Moist mucous membranes. Chest: Decreased air entry bilaterally. No wheezing or rhonchi. Cardio vascular: Positive S1, positive S2. Regular rate and rhythm. Abdomen: Positive bowel sounds in all 4 quadrants. Soft, non-tender, non- distended. : Deferred. Rectal: Deferred Skin: Warm, dry. Extremities: 2+ radial pulses bilaterally. No lower extremity edema. Neuro: Awake, alert, oriented x3. No gross motor or sensory deficits. Cranial nerves II through XII intact. Gait not assessed. laboratory and microbiology Laboratory Tests 06/20/24 05:31 Test 06/20/24 05:31 Range/Units Serum Glucose 86 74-106 mg/dL Assessment/Plan Impression: Septic shock Acute hypoxic respiratory failure Acute kidney injury, resolved Small bowel obstruction, improving Atrial fibrillation Hx of gastric bypass ([id number]) Obesity, BMI 34.2 Atelectasis Events: On supplemental oxygen, 3 LPM NC Taper O2 as tolerated Continue antibiotics Incentive spirometry Pain control Avoid oversedation Monitor hemoglobin - 8.6 g/dL. TPN for nutritional support. On soft diet Advance diet as tolerated Head of bed elevation Aspiration precautions LR at 100 ml/hr for IV fluid hydration Wound care. GI prophylaxis w/ Protonix DVT prophylaxis w/ therapeutic Lovenox Awaiting SNF placement Patient is s/p exploratory laparotomy with lysis of adhesions. Rest of plan as noted below. Plan: S/p central line placement. Needed for administration of pressors. S/p extubation. On supplemental oxygen, 3 LPM NC Taper O2 as tolerated Antibiotics GI recommendations appreciated. Monitor WBC Hemoglobin - monitor Monitor renal function. Monitor electrolytes. Supplement as necessary. Monitor ins and outs. Creatinine trending down. Diet and lifestyle modifications discussed Obesity - complicates all care. GI/DVT prophylaxis. Awaiting SNF placement Prognosis: Poor given patient's multiple co-morbidities. Rest of plan per hospitalist and other consultants. Thank you Makenzie Mcnamara NP, for allowing me to participate in this patient's care. Further recommendations will depend on the patient's clinical course. Please do not hesitate to contact me if you have any questions or concerns. This medical document was created using an electronic medical record system with [employer] dictation system. Although these documentations are being carefully reviewed, there may still be some phonetic and typographical changes. The errors are purely typographical, due to imperfection on the software program, and do not reflect any compromise in the patient's medical care Dietary Evaluation Review Comments: 1. advance diet as tolerated per MD 2. Consider EN/TPN if Pt remains NPO for 48 hours Expected Outcomes/Goals: 1. Pt will consume >75% estimated needs within 2-3 days Plan discussed with: Patient, Other (NIRAV Emery) PRISCILLA CORREA MD Jun 20, 2024 23:32
[2024-06-21] VITALS (8 sets, daily range): BP systolic 131–140; BP diastolic 48–72; PULSE 75–95; RESP 17–20; TEMP 99.1–101.8; O2SAT 90–95
--- NOTE | 2024-06-21 08:15 | DVHPN2 ---
Progress Note - Dictate Date Seen: Jun 21, 2024 Medical Necessity Reason Pt with a Central, PICC or Fol: No The following are medically ne: Central Line, Grewal Catheter Reason for grewal catheter: Strict I&O vital signs Vital Sign Date Time Temp Pulse Resp B/P (MAP) Pulse Ox O2 Delivery O2 Flow Rate FiO2 06/21/24 06:15 74 140/60 06/21/24 05:14 101.8 19 92 101.8 06/20/24 20:00 Nasal Cannula* 2 28 Total Intake and Output 06/20/24 06/20/24 06/21/24 15:00 23:00 07:00 Intake Total 650 ml 800 ml Output Total 800 ml 1000 ml Balance -150 ml -200 ml medications Current Medications Medications Dose Ordered Sig/Jason Route Start Time Stop Time Status Last Admin Dose Admin Ondansetron HCl 4 mg Q4HP PRN IV 05/22/24 15:00 06/06/24 02:47 4 MG Acetaminophen 650 mg Q6HP PRN PO 05/22/24 15:00 06/20/24 06:28 650 MG Citalopram Hydrobromide 20 mg DAILY PO 05/23/24 10:00 06/20/24 10:30 20 MG Prochlorperazine Edisylate 10 mg Q6HP PRN IV 05/23/24 12:00 06/04/24 12:42 10 MG Atorvastatin Calcium 20 mg DAILY PO 05/24/24 10:00 06/20/24 10:30 20 MG Nortriptyline HCl 50 mg HS PO 05/23/24 22:00 06/20/24 21:21 50 MG Tamsulosin HCl 0.4 mg QPM PO 05/23/24 18:00 06/20/24 18:08 0.4 MG Docusate Calcium 240 mg DAILY PO 06/03/24 12:33 06/20/24 10:29 240 MG Metoprolol Tartrate 10 mg BID PO 06/03/24 22:00 UNV Sennosides 8.6 mg DAILYP PO 06/03/24 12:33 06/20/24 10:30 8.6 MG Duloxetine HCl 60 mg DAILY PO 06/03/24 12:34 06/20/24 10:30 60 MG Metoprolol Tartrate 25 mg BID PO 06/03/24 22:00 Hold 06/03/24 22:43 25 MG Metoprolol Tartrate 5 mg Q4HP PRN IV 06/05/24 11:15 Hold Pantoprazole Sodium 40 mg DAILY IV 06/06/24 10:00 06/20/24 10:32 40 MG Acetaminophen 650 mg Q6HP PRN [place] 06/09/24 08:15 06/13/24 01:13 650 MG Metoprolol Tartrate 5 mg BID IV 06/11/24 13:45 UNV Labetalol HCl 10 mg Q2HPRN PRN IV 06/12/24 10:45 06/14/24 04:15 10 MG Hydralazine HCl 20 mg Q6HP PRN IV 06/14/24 03:45 Diltiazem HCl 30 mg Q6HR PO 06/18/24 12:00 06/21/24 06:15 30 MG Acetaminophen/ Hydrocodone Bitart 1 tab Q8HPRN PRN PO 06/19/24 22:00 06/21/24 06:17 1 TAB Polyethylene Glycol 17 gm DAILY PO 06/20/24 11:45 06/20/24 11:45 17 GM laboratory and microbiology Laboratory Tests 06/20/24 05:31 Test 06/20/24 05:31 Range/Units Serum Glucose 86 74-106 mg/dL Assessment/Plan s/p Laparotomy (found to have contained bowel perforation, abscess) Has Bowel movements In tele floor Had mechanical fall and found to have hip fracture. S/p ORIF (earlier during admission course) Patient is a 74-year-old gentleman who presented on May 22, 2024 for epigastric pain. It seems that he ate sandwich in this was followed by repeated abdominal pain and vomiting. He has been admitted with small-bowel obstruction. He also was found to have gallstones and gastric outlet obstruction. He has been seen by surgery and GI. He has been having NG tube. Patient does have history of paroxysmal AFib and is on Eliquis as outpatient. On 05/24 2024, the patient was found to have tachyarrhythmia and cardiology was involved for its evaluation and management. Telemetry revealed tachyarrhythmia in the rate of 150s. Tele was in favor of SVT. Patient was attached to the monitor and 6 mg of adenosine was given which resulted in breaking of the tachyarrhythmia inpatient been back to sinus rhythm. As per patient, he usually follows with Cardiology in [facility]. As per patient, he did have angiogram (cardiac catheterization some years ago and was told that it was normal findings). Lying flat in bed and not in acute distress. No JVD. Mucosa is pink and wet. No carotid bruit. No goiter. Lungs are clear to auscultation. No thrill/gallop. Abdomen is soft. Extremities do not reveal edema Past medical history includes atrial fibrillation (on Eliquis as outpatient), DJD, heart failure (diastolic), COPD, hypertension, hyperlipidemia, reported diabetes mellitus, obesity, old history of tonsillectomy and gastric bypass surgery. He is known to have kidney stones. Echocardiogram of January 2020 revealed ejection fraction of 60% and biatrial enlargement Troponin (high sensitive): 19 - 11 TSH: 3.28 CT of the abdomen and pelvis revealed: IMPRESSION: 1. Cholelithiasis with the gallbladder distended. 2. Postop changes to the stomach with a fluid-filled distended stomach and dilated fluid-filled small bowel findings suggest small bowel obstruction. 3. Multiple bilateral nonobstructing renal calculi. 4. Prosthesis in the right hip. Chest x-ray revealed: Frontal chest radiograph demonstrates no acute osseous or superficial soft tissue abnormalities. Enteric tube visualized overlying the plane of the stomach. The trachea is midline. The cardiac silhouette and mediastinum are within normal limits. No pneumothorax, pleural effusions, or consolidations. Partially visualized gaseous distended loops of bowel. Repeat chest xry revealed: IMPRESSION: 1. Stable appearance of the support lines and tubes. 2. Bibasilar airspace disease similar to prior study. Repeat chest xry revealed: IMPRESSION: Endotracheal projects 0.7 cm above the level of the gary. Recommend retraction. Repeat chest xry revealed: Lines and Tubes: Interval removal of endotracheal and enteric tube compared to prior exam. Right internal jugular central venous catheter tip projects over the superior vena cava. Lungs: No focal consolidation. Atherosclerotic vascular calcifications of the thoracic aorta are noted. Pleura: No effusion. No pneumothorax. Cardiomediastinal contours: Unremarkable Bones: No acute osseous abnormality. IMPRESSION: Interval removal of endotracheal and enteric tube compared to prior exam.No acute cardiopulmonary disease. HIDA scan reported: IMPRESSION: 1. Findings may reflect chronic cholecystitis, cannot exclude acute cholecystitis due to lack of 30-60 minute images. KUB revealed: IMPRESSION: Findings concerning for small bowel obstruction versus ileus. Repeat KUB revealed: FINDINGS/IMPRESSION: Dilated loops of small bowel with gas and stool visualized in the colon. Findings appear improved compared to prior exam. Repeat KUB revealed: IMPRESSION: 1. There are air-filled dilated small bowel loops. Air and stool is seen within the colon. The findings appear mildly improved comparison to the prior study. The findings fairly stable and May relate to an ileus.. Clinical correlation and continued follow-up is recommended Repeat KUB revealed: Impression: 1. Nonobstructive bowel gas pattern. Repeat KUB revealed: Findings/ Impression: Postsurgical changes of the abdomen with skin lavern noted over the right hemiabdomen. Enteric tube is noted terminating within the stomach. There are gas-filled mildly distended small bowel loops which may be due to ileus with partial bowel obstruction not excluded. There is contrast noted within the nondistended large bowel. Bibasilar atelectasis. No acute bony abnormalities. Right total hip replacement with partially visualized intramedullary speedy and dynamic screw fixation of the left proximal femur Gallbladder ultrasound reported: FINDINGS: Examination is limited. The gallbladder appears distended. The gallbladder wall measures 2 mm in thickness, within normal limits. Possible sludge in the gallbladder. Negative reported sonographic valladares's sign. The common bile duct measures 6 mm in diameter, within normal limits. The liver measures at the upper limits of normal in size, at 16.4 cm in craniocaudal dimension. Heterogeneous echotexture of the liver. The pancreas is obscured by bowel gas. The right kidney measures 9.6 cm. There is no hydronephrosis. Limited evaluation of the right kidney. Echogenic focus, possible renal calculus at the midpole measuring 1.4 cm. The patient does have renal calculi on recent CT exam. IMPRESSION: 1. Limited examination as described above. Possible gallbladder sludge and distended gallbladder. No sonographic evidence of acute cholecystitis. 2. Additional nonacute findings as described above. HIDA scan revealed: Impression: 1. Unremarkable hepatobiliary study without evidence of acute cholecystitis. Left Hip Xry: FINDINGS/IMPRESSION: There is a displaced and impacted left intertrochanteric fracture. Patient is status post right hip arthroplasty. EKG revealed SVT Tele revealed SVT which later transitioned into sinus rhythm Echocardiogram revealed: Technically limited study secondary to poor acoustic windows. Left ventricle: Mild concentric left ventricular hypertrophy was seen. LVEF was 55-60%. Right ventricle was normal size with normal systolic function. Both atria were mildly dilated. Aortic valve was not well visualized. Aortic sclerosis with no stenosis was observed. [id number] aortic insufficiency was observed. Mild mitral/tricuspid regurgitation was seen. Tricuspid valve was not well visualized. Right ventricular systolic pressure was assessed around 25 mm Hg. There was no pericardial effusion. Ascending aorta was 4.5 cm. Patient is a 74-year-old gentleman who presented with abdominal pain and is being managed for small bowel obstruction. He does have history of paroxysmal AFib. Has not been taking his medications regularly and this was followed with tachyarrhythmia. Tachyarrhythmia was in favor of SVT. SVT responded to adenosine Small-bowel obstruction Obesity History of gastric bypass Paroxysmal AFib SVT Status post adenosine management Diabetes mellitus Obesity, morbid Gallstone Renal stone s/p laparotomy bowel perforation Cardiac suggestion for management: For now, manage in tele Follow-up electrolytes and kidney function tests and correct abnormalities Keep potassium above 4 and magnesium above 2 Cardizem, oral Fluid resuscitation Surgery and GI follow up Long-term continuation of anticoagulation is suggested. Further evaluation and management depends on the above and clinical course A total of 55 minutes was spent reviewing the patient record, examining the patient, making a diagnostic and therapeutic plan, discussing this plan with medical personnel, following up on diagnostic studies and following the patient for clinical stability excluding any and all procedures. At least 50% of this time was spent in direct, [id number] contact. Thank you for allowing me to participate in this patient's care. Further recommendations will depend on patient's clinical course. Please do not hesitate to contact me if you have any questions or concerns. This medical document was created using electronic medical record system with [employer] dictation system. Although this document has been carefully reviewed, there may still be some phonetic and typographical errors. These areas are purely typographical due to the imperfection of the software programs, and do not reflect any compromise in the patient's medical care. Dietary Evaluation Review Comments: 1. advance diet as tolerated per MD 2. Consider EN/TPN if Pt remains NPO for 48 hours Expected Outcomes/Goals: 1. Pt will consume >75% estimated needs within 2-3 days Plan discussed with: Other (nurse) BROOKS PRITCHARD MD Jun 21, 2024 08:15
[2024-06-21 08:57] LABS: Basophils # (auto) 0 10 ^3/uL (0-0.2); Basophils % (auto) 0.8 % (0.0-2.0); Eosinophils # (auto) 0 10 ^3/uL (0-0.8); Eosinophils % (auto) 0.9 % (0.0-7.0); Hematocrit 25.3 % (41.0-53.0); Hemoglobin 8.5 g/dL (13.5-17.5); Lymphocytes # (auto) 0.5 10 ^3/uL (0.4-5.4); Lymphocytes % (auto) 19.2 % (10.0-50.0); Mean Corpuscular Hemoglobin 29.7 pg (28.0-32.0); Mean Corpuscular Hgb Conc. 33.4 g/dL (32.0-36.0); Mean Corpuscular Volume 88.8 fL (80.0-100.0); Monocytes # (auto) 0.3 10 ^3/uL (0-1.3); Monocytes % (auto) 11.9 % (0.0-12.0); Neutrophils # (auto) 1.7 10 ^3/uL (1.6-8.6); Neutrophils % (auto) 67.2 % (37.0-80.0); Nucleated Red Blood Cells % 0.3 %; Platelet Count (auto) 181 10^3/uL (140-450); Red Blood Cells 2.85 10^6/uL (4.5-5.90); White Blood Cell 2.5 10^3/uL (4.4-10.8)
[2024-06-21 09:07] LABS: Anion Gap 6 (5-15); Carbon Dioxide 28 mmol/L (20-31); Chloride 102 mmol/L (98-107); Potassium 3.2 mmol/L (3.5-5.1); Sodium 136 mmol/L (136-145)
[2024-06-21 09:13] LABS: BUN/Creatinine Ratio 16.4 (10.0-20.0); Blood Urea Nitrogen 12 mg/dL (9-23); Glucose 89 mg/dL (74-106)
--- NOTE | 2024-06-21 11:22 | ECG ---
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
--- NOTE | 2024-06-21 13:25 | DVHPN2 ---
Progress Note - Dictate Date Seen: Jun 21, 2024 Medical Necessity Reason Pt with a Central, PICC or Fol: No The following are medically ne: Central Line, Grewal Catheter Reason for grewal catheter: Strict I&O vital signs Vital Sign Date Time Temp Pulse Resp B/P (MAP) Pulse Ox O2 Delivery O2 Flow Rate FiO2 06/21/24 12:32 91 132/72 06/21/24 09:00 99.7 17 90 99.7 06/21/24 08:00 Nasal Cannula* 2 28 Total Intake and Output 06/20/24 06/20/24 06/21/24 15:00 23:00 07:00 Intake Total 650 ml 800 ml Output Total 800 ml 1000 ml Balance -150 ml -200 ml medications Current Medications Medications Dose Ordered Sig/Jason Route Start Time Stop Time Status Last Admin Dose Admin Ondansetron HCl 4 mg Q4HP PRN IV 05/22/24 15:00 06/06/24 02:47 4 MG Acetaminophen 650 mg Q6HP PRN PO 05/22/24 15:00 06/20/24 06:28 650 MG Citalopram Hydrobromide 20 mg DAILY PO 05/23/24 10:00 06/21/24 09:32 20 MG Prochlorperazine Edisylate 10 mg Q6HP PRN IV 05/23/24 12:00 06/04/24 12:42 10 MG Atorvastatin Calcium 20 mg DAILY PO 05/24/24 10:00 06/21/24 09:32 20 MG Nortriptyline HCl 50 mg HS PO 05/23/24 22:00 06/20/24 21:21 50 MG Tamsulosin HCl 0.4 mg QPM PO 05/23/24 18:00 06/20/24 18:08 0.4 MG Docusate Calcium 240 mg DAILY PO 06/03/24 12:33 06/21/24 10:27 240 MG Metoprolol Tartrate 10 mg BID PO 06/03/24 22:00 UNV Sennosides 8.6 mg DAILYP PO 06/03/24 12:33 06/21/24 09:32 8.6 MG Duloxetine HCl 60 mg DAILY PO 06/03/24 12:34 06/21/24 09:31 60 MG Metoprolol Tartrate 25 mg BID PO 06/03/24 22:00 Hold 06/03/24 22:43 25 MG Metoprolol Tartrate 5 mg Q4HP PRN IV 06/05/24 11:15 Hold Pantoprazole Sodium 40 mg DAILY IV 06/06/24 10:00 06/21/24 09:32 40 MG Acetaminophen 650 mg Q6HP PRN PA 06/09/24 08:15 06/13/24 01:13 650 MG Metoprolol Tartrate 5 mg BID IV 06/11/24 13:45 UNV Labetalol HCl 10 mg Q2HPRN PRN IV 06/12/24 10:45 06/14/24 04:15 10 MG Hydralazine HCl 20 mg Q6HP PRN IV 06/14/24 03:45 Diltiazem HCl 30 mg Q6HR PO 06/18/24 12:00 06/21/24 12:32 30 MG Acetaminophen/ Hydrocodone Bitart 1 tab Q8HPRN PRN PO 06/19/24 22:00 06/21/24 06:17 1 TAB Polyethylene Glycol 17 gm DAILY PO 06/20/24 11:45 06/21/24 09:31 17 GM objective General Appearance: alert, no distress HEENT: EOMI, PERRLA, normal external inspect of ears, no icterus, no nasal drainage Neck: no carotid bruit, no jugular venous distention (JVD), no lymphadenopathy Chest: normal thorax Respiratory: clear to auscultation, normal air movement Cardiovascular: regular rate and rhythm, no diastolic murmur, no jugular venous distention (JVD), no rub, no systolic murmur Abdominal: soft, no hepatomegaly, no mass, no splenomegaly, no tenderness Genitourinary: grossly normal external Musculoskeletal: no joint tenderness, no swelling Extremities: normal pulses, no calf tenderness, no clubbing, no cyanosis, no edema Skin: no bruising, no jaundice, no rash Neurological: alert, No focal deficit laboratory and microbiology Laboratory Tests 06/21/24 08:20 Test 06/21/24 08:20 Range/Units Serum Glucose 89 74-106 mg/dL Problem List 1. Small bowel obstruction Monitor, surgical consult, GI consult, NPO 2. HLD Monitor 3. Persistent atrial fibrillation Monitor, full dose Lovenox 4. Obesity Monitor 5. Hx gastric bypass Monitor 6. Benign essential HTN Monitor, antihypertensives 7. Gallstones Monitor, surgical consult, GI consult, NPO, HIDA scan 8. Sepsis Monitor 9. Septic Shock Monitor 10. Acute renal failure Monitor, nephrology consult Assessment/Plan Subjective: Patient is awake and alert. Objective: I spoke with the patient at length about the plan of care. He is agreeable to discharge to a longterm facility for rehabilitation. Potassium is 3.2. Patient is tolerating a soft diet and was able to stand with physical therapy today. Plan: Continue current treatment. child and family services specialist is working on placement at a longterm facility. Continue antibiotics per infectious disease recommendations. Dietary Evaluation Review Comments: 1. advance diet as tolerated per MD 2. Consider EN/TPN if Pt remains NPO for 48 hours Expected Outcomes/Goals: 1. Pt will consume >75% estimated needs within 2-3 days Plan discussed with: Patient, Other TETO CRAMER RN MEDICARE Jun 21, 2024 13:25
[2024-06-21] MEDS: POTASSIUM CHL 20 Meq TABLET PO ONE (14:22)
[2024-06-21] MEDS: APIXABAN 5 MG TAB PO SCH (14:22)
--- NOTE | 2024-06-21 19:38 | DVHPN2 ---
Progress Note Date Seen: Jun 21, 2024 Medical Necessity Reason Pt with a Central, PICC or Fol: No The following are medically ne: Central Line, Grewal Catheter Reason for grewal catheter: Strict I&O Objective vital signs Vital Sign Date Time Temp Pulse Resp B/P (MAP) Pulse Ox O2 Delivery O2 Flow Rate FiO2 06/21/24 18:05 75 131/48 06/21/24 17:00 99.7 17 91 99.7 06/21/24 08:00 Nasal Cannula* 2 28 Total Intake and Output 06/20/24 06/20/24 06/21/24 15:00 23:00 07:00 Intake Total 650 ml 800 ml Output Total 800 ml 1000 ml Balance -150 ml -200 ml medications Current Medications Medications Dose Ordered Sig/Jason Route Start Time Stop Time Status Last Admin Dose Admin Acetaminophen 650 mg Q6HP PRN PO 05/22/24 15:00 06/20/24 06:28 650 MG Citalopram Hydrobromide 20 mg DAILY PO 05/23/24 10:00 06/21/24 09:32 20 MG Prochlorperazine Edisylate 10 mg Q6HP PRN IV 05/23/24 12:00 06/04/24 12:42 10 MG Atorvastatin Calcium 20 mg DAILY PO 05/24/24 10:00 06/21/24 09:32 20 MG Nortriptyline HCl 50 mg HS PO 05/23/24 22:00 06/20/24 21:21 50 MG Tamsulosin HCl 0.4 mg QPM PO 05/23/24 18:00 06/21/24 18:05 0.4 MG Docusate Calcium 240 mg DAILY PO 06/03/24 12:33 06/21/24 10:27 240 MG Metoprolol Tartrate 10 mg BID PO 06/03/24 22:00 UNV Sennosides 8.6 mg DAILYP PO 06/03/24 12:33 06/21/24 09:32 8.6 MG Duloxetine HCl 60 mg DAILY PO 06/03/24 12:34 06/21/24 09:31 60 MG Metoprolol Tartrate 25 mg BID PO 06/03/24 22:00 Hold 06/03/24 22:43 25 MG Metoprolol Tartrate 5 mg Q4HP PRN IV 06/05/24 11:15 Hold Pantoprazole Sodium 40 mg DAILY IV 06/06/24 10:00 06/21/24 09:32 40 MG Acetaminophen 650 mg Q6HP PRN [place] 06/09/24 08:15 06/13/24 01:13 650 MG Metoprolol Tartrate 5 mg BID IV 06/11/24 13:45 UNV Labetalol HCl 10 mg Q2HPRN PRN IV 06/12/24 10:45 06/14/24 04:15 10 MG Hydralazine HCl 20 mg Q6HP PRN IV 06/14/24 03:45 Diltiazem HCl 30 mg Q6HR PO 06/18/24 12:00 06/21/24 18:05 30 MG Acetaminophen/ Hydrocodone Bitart 1 tab Q8HPRN PRN PO 06/19/24 22:00 06/21/24 06:17 1 TAB Polyethylene Glycol 17 gm DAILY PO 06/20/24 11:45 06/21/24 09:31 17 GM Apixaban 5 mg BID PO 06/21/24 13:45 06/21/24 14:22 5 MG laboratory and microbiology Laboratory Tests 06/21/24 08:20 Test 06/21/24 08:20 Range/Units Serum Glucose 89 74-106 mg/dL Microbiology Date/Time Source Procedure Growth Status 06/09/24 18:42 Lung Pending Resulted 06/09/24 18:42 Lung Pending Resulted 06/09/24 18:42 Lung Pending Resulted 06/09/24 18:42 Lung Pending Resulted 06/09/24 18:42 Lung - Final See Separate Report... Resulted 06/09/24 18:42 Bronchial Washings Gram Stain - Final Complete 06/09/24 18:42 Respiratory Culture - Final Escherichia coli Complete Problem List/Assessment/Plan Problem List/Assessment/Plan AFEBRILE VSS ABD SOFT LESS DISTENDED DRESSING DRY BM + FLATUS + NURSE AT BEDSIDE SONAM SOFT DIET NO COMPLICATIONS PHYSICAL THERAPY FOR AMBULATION DISCHARGE PLANNING ONGOING Plan discussed with: Patient Dietary Evaluation Review Comments: 1. advance diet as tolerated per MD 2. Consider EN/TPN if Pt remains NPO for 48 hours Expected Outcomes/Goals: 1. Pt will consume >75% estimated needs within 2-3 days MARTHA ALVARES MD Jun 21, 2024 19:38
--- NOTE | 2024-06-21 22:34 | DVHPN2 ---
Progress Note - Dictate Date Seen: Jun 21, 2024 Medical Necessity Reason Pt with a Central, PICC or Fol: No The following are medically ne: Central Line, Grewal Catheter Reason for grewal catheter: Strict I&O Subjective Patient seen and examined at bedside. On supplemental oxygen Overnight events reviewed. vital signs Vital Sign Date Time Temp Pulse Resp B/P (MAP) Pulse Ox O2 Delivery O2 Flow Rate FiO2 06/21/24 21:00 100.1 95 19 132/54 (80) 90 100.1 06/21/24 20:00 Nasal Cannula* 2 28 Total Intake and Output 06/20/24 06/20/24 06/21/24 14:59 22:59 06:59 Intake Total 650 ml 800 ml Output Total 800 ml 1000 ml Balance -150 ml -200 ml medications Current Medications Medications Dose Ordered Sig/Jason Route Start Time Stop Time Status Last Admin Dose Admin Acetaminophen 650 mg Q6HP PRN PO 05/22/24 15:00 06/20/24 06:28 650 MG Citalopram Hydrobromide 20 mg DAILY PO 05/23/24 10:00 06/21/24 09:32 20 MG Prochlorperazine Edisylate 10 mg Q6HP PRN IV 05/23/24 12:00 06/04/24 12:42 10 MG Atorvastatin Calcium 20 mg DAILY PO 05/24/24 10:00 06/21/24 09:32 20 MG Nortriptyline HCl 50 mg HS PO 05/23/24 22:00 06/21/24 20:50 50 MG Tamsulosin HCl 0.4 mg QPM PO 05/23/24 18:00 06/21/24 18:05 0.4 MG Docusate Calcium 240 mg DAILY PO 06/03/24 12:33 06/21/24 10:27 240 MG Metoprolol Tartrate 10 mg BID PO 06/03/24 22:00 UNV Sennosides 8.6 mg DAILYP PO 06/03/24 12:33 06/21/24 09:32 8.6 MG Duloxetine HCl 60 mg DAILY PO 06/03/24 12:34 06/21/24 09:31 60 MG Metoprolol Tartrate 25 mg BID PO 06/03/24 22:00 Hold 06/03/24 22:43 25 MG Metoprolol Tartrate 5 mg Q4HP PRN IV 06/05/24 11:15 Hold Pantoprazole Sodium 40 mg DAILY IV 06/06/24 10:00 06/21/24 09:32 40 MG Acetaminophen 650 mg Q6HP PRN OR 06/09/24 08:15 06/13/24 01:13 650 MG Metoprolol Tartrate 5 mg BID IV 06/11/24 13:45 UNV Labetalol HCl 10 mg Q2HPRN PRN IV 06/12/24 10:45 06/14/24 04:15 10 MG Hydralazine HCl 20 mg Q6HP PRN IV 06/14/24 03:45 Diltiazem HCl 30 mg Q6HR PO 06/18/24 12:00 06/21/24 18:05 30 MG Acetaminophen/ Hydrocodone Bitart 1 tab Q8HPRN PRN PO 06/19/24 22:00 06/21/24 20:50 1 TAB Polyethylene Glycol 17 gm DAILY PO 06/20/24 11:45 06/21/24 09:31 17 GM Apixaban 5 mg BID PO 06/21/24 13:45 06/21/24 20:50 5 MG objective Gen.: Patient lying in bed in no apparent distress. On supplemental oxygen Head: Normocephalic, atraumatic Eyes: EOMI/PERRLA. Ears: Normal hearing. Normal anatomy. Neck/trachea: Trachea midline, supple. Nose: Normal external anatomy. Mouth: Moist mucous membranes. Chest: Decreased air entry bilaterally. No wheezing or rhonchi. Cardio vascular: Positive S1, positive S2. Regular rate and rhythm. Abdomen: Positive bowel sounds in all 4 quadrants. Soft, non-tender, non- distended. : Deferred. Rectal: Deferred Skin: Warm, dry. Extremities: 2+ radial pulses bilaterally. No lower extremity edema. Neuro: Awake, alert, oriented x3. No gross motor or sensory deficits. Cranial nerves II through XII intact. Gait not assessed. laboratory and microbiology Laboratory Tests 06/21/24 08:20 Test 06/21/24 08:20 Range/Units Serum Glucose 89 74-106 mg/dL Assessment/Plan Impression: Septic shock Acute hypoxic respiratory failure Acute kidney injury, resolved Small bowel obstruction, improving Atrial fibrillation Hx of gastric bypass ([id number]) Obesity, BMI 34.2 Atelectasis Events: On supplemental oxygen, 3 LPM NC Taper O2 as tolerated Continue antibiotics Incentive spirometry Pain control Avoid oversedation Lovenox was changed to Eliquis Monitor hemoglobin - 8.5 g/dL. TPN for nutritional support. On soft diet Advance diet as tolerated Head of bed elevation Aspiration precautions LR at 100 ml/hr for IV fluid hydration Wound care. GI prophylaxis w/ Protonix DVT prophylaxis - Eliquis Awaiting SNF placement Patient is s/p exploratory laparotomy with lysis of adhesions. Rest of plan as noted below. Plan: S/p central line placement. Needed for administration of pressors. S/p extubation. On supplemental oxygen, 3 LPM NC Taper O2 as tolerated Antibiotics GI recommendations appreciated. Monitor WBC Hemoglobin - monitor Monitor renal function. Monitor electrolytes. Supplement as necessary. Monitor ins and outs. Creatinine trending down. Diet and lifestyle modifications discussed Obesity - complicates all care. GI/DVT prophylaxis. Awaiting SNF placement Prognosis: Poor given patient's multiple co-morbidities. Rest of plan per hospitalist and other consultants. Thank you S JENNA Mcnamara, for allowing me to participate in this patient's care. Further recommendations will depend on the patient's clinical course. Please do not hesitate to contact me if you have any questions or concerns. This medical document was created using an electronic medical record system with [employer] dictation system. Although these documentations are being carefully reviewed, there may still be some phonetic and typographical changes. The errors are purely typographical, due to imperfection on the software program, and do not reflect any compromise in the patient's medical care Dietary Evaluation Review Comments: 1. advance diet as tolerated per MD 2. Consider EN/TPN if Pt remains NPO for 48 hours Expected Outcomes/Goals: 1. Pt will consume >75% estimated needs within 2-3 days Plan discussed with: Patient, Other (NIRAV Viramontes/Yuly) PRISCILLA CORREA MD Jun 21, 2024 22:34
[2024-06-22] VITALS (8 sets, daily range): BP systolic 107–130; BP diastolic 44–93; PULSE 62–100; RESP 17–20; TEMP 97.9–99.5; O2SAT 91–97
--- NOTE | 2024-06-22 08:43 | DVHPN2 ---
Progress Note - Dictate Date Seen: Jun 22, 2024 Medical Necessity Reason Pt with a Central, PICC or Fol: No The following are medically ne: Central Line, Grewal Catheter Reason for grewal catheter: Strict I&O vital signs Vital Sign Date Time Temp Pulse Resp B/P (MAP) Pulse Ox O2 Delivery O2 Flow Rate FiO2 06/22/24 06:04 76 124/45 06/22/24 05:00 98.9 19 97 98.9 06/21/24 20:00 Nasal Cannula* 2 28 Total Intake and Output 06/21/24 06/21/24 06/22/24 15:00 23:00 07:00 Intake Total 750 ml Output Total 1500 ml 700 ml Balance -1500 ml 50 ml medications Current Medications Medications Dose Ordered Sig/Jason Route Start Time Stop Time Status Last Admin Dose Admin Acetaminophen 650 mg Q6HP PRN PO 05/22/24 15:00 06/20/24 06:28 650 MG Citalopram Hydrobromide 20 mg DAILY PO 05/23/24 10:00 06/21/24 09:32 20 MG Prochlorperazine Edisylate 10 mg Q6HP PRN IV 05/23/24 12:00 06/04/24 12:42 10 MG Atorvastatin Calcium 20 mg DAILY PO 05/24/24 10:00 06/21/24 09:32 20 MG Nortriptyline HCl 50 mg HS PO 05/23/24 22:00 06/21/24 20:50 50 MG Tamsulosin HCl 0.4 mg QPM PO 05/23/24 18:00 06/21/24 18:05 0.4 MG Docusate Calcium 240 mg DAILY PO 06/03/24 12:33 06/21/24 10:27 240 MG Metoprolol Tartrate 10 mg BID PO 06/03/24 22:00 UNV Sennosides 8.6 mg DAILYP PO 06/03/24 12:33 06/21/24 09:32 8.6 MG Duloxetine HCl 60 mg DAILY PO 06/03/24 12:34 06/21/24 09:31 60 MG Metoprolol Tartrate 25 mg BID PO 06/03/24 22:00 Hold 06/03/24 22:43 25 MG Metoprolol Tartrate 5 mg Q4HP PRN IV 06/05/24 11:15 Hold Pantoprazole Sodium 40 mg DAILY IV 06/06/24 10:00 06/21/24 09:32 40 MG Acetaminophen 650 mg Q6HP PRN TN 06/09/24 08:15 06/13/24 01:13 650 MG Metoprolol Tartrate 5 mg BID IV 06/11/24 13:45 UNV Labetalol HCl 10 mg Q2HPRN PRN IV 06/12/24 10:45 06/14/24 04:15 10 MG Hydralazine HCl 20 mg Q6HP PRN IV 06/14/24 03:45 Diltiazem HCl 30 mg Q6HR PO 06/18/24 12:00 06/22/24 06:04 30 MG Acetaminophen/ Hydrocodone Bitart 1 tab Q8HPRN PRN PO 06/19/24 22:00 06/22/24 06:04 1 TAB Polyethylene Glycol 17 gm DAILY PO 06/20/24 11:45 06/21/24 09:31 17 GM Apixaban 5 mg BID PO 06/21/24 13:45 06/21/24 20:50 5 MG laboratory and microbiology Laboratory Tests 06/21/24 08:20 Test 06/21/24 08:20 Range/Units Serum Glucose 89 74-106 mg/dL Assessment/Plan s/p Laparotomy (found to have contained bowel perforation, abscess) Has Bowel movements In tele floor Had mechanical fall and found to have hip fracture. S/p ORIF (earlier during admission course) Patient is a 74-year-old gentleman who presented on May 22, 2024 for epigastric pain. It seems that he ate sandwich in this was followed by repeated abdominal pain and vomiting. He has been admitted with small-bowel obstruction. He also was found to have gallstones and gastric outlet obstruction. He has been seen by surgery and GI. He has been having NG tube. Patient does have history of paroxysmal AFib and is on Eliquis as outpatient. On 05/24 2024, the patient was found to have tachyarrhythmia and cardiology was involved for its evaluation and management. Telemetry revealed tachyarrhythmia in the rate of 150s. Tele was in favor of SVT. Patient was attached to the monitor and 6 mg of adenosine was given which resulted in breaking of the tachyarrhythmia inpatient been back to sinus rhythm. As per patient, he usually follows with Cardiology in [facility]. As per patient, he did have angiogram (cardiac catheterization some years ago and was told that it was normal findings). Lying flat in bed and not in acute distress. No JVD. Mucosa is pink and wet. No carotid bruit. No goiter. Lungs are clear to auscultation. No thrill/gallop. Abdomen is soft. Extremities do not reveal edema Past medical history includes atrial fibrillation (on Eliquis as outpatient), DJD, heart failure (diastolic), COPD, hypertension, hyperlipidemia, reported diabetes mellitus, obesity, old history of tonsillectomy and gastric bypass surgery. He is known to have kidney stones. Echocardiogram of January 2020 revealed ejection fraction of 60% and biatrial enlargement Troponin (high sensitive): 19 - 11 TSH: 3.28 CT of the abdomen and pelvis revealed: IMPRESSION: 1. Cholelithiasis with the gallbladder distended. 2. Postop changes to the stomach with a fluid-filled distended stomach and dilated fluid-filled small bowel findings suggest small bowel obstruction. 3. Multiple bilateral nonobstructing renal calculi. 4. Prosthesis in the right hip. Chest x-ray revealed: Frontal chest radiograph demonstrates no acute osseous or superficial soft tissue abnormalities. Enteric tube visualized overlying the plane of the stomach. The trachea is midline. The cardiac silhouette and mediastinum are within normal limits. No pneumothorax, pleural effusions, or consolidations. Partially visualized gaseous distended loops of bowel. Repeat chest xry revealed: IMPRESSION: 1. Stable appearance of the support lines and tubes. 2. Bibasilar airspace disease similar to prior study. Repeat chest xry revealed: IMPRESSION: Endotracheal projects 0.7 cm above the level of the gary. Recommend retraction. Repeat chest xry revealed: Lines and Tubes: Interval removal of endotracheal and enteric tube compared to prior exam. Right internal jugular central venous catheter tip projects over the superior vena cava. Lungs: No focal consolidation. Atherosclerotic vascular calcifications of the thoracic aorta are noted. Pleura: No effusion. No pneumothorax. Cardiomediastinal contours: Unremarkable Bones: No acute osseous abnormality. IMPRESSION: Interval removal of endotracheal and enteric tube compared to prior exam.No acute cardiopulmonary disease. HIDA scan reported: IMPRESSION: 1. Findings may reflect chronic cholecystitis, cannot exclude acute cholecystitis due to lack of 30-60 minute images. KUB revealed: IMPRESSION: Findings concerning for small bowel obstruction versus ileus. Repeat KUB revealed: FINDINGS/IMPRESSION: Dilated loops of small bowel with gas and stool visualized in the colon. Findings appear improved compared to prior exam. Repeat KUB revealed: IMPRESSION: 1. There are air-filled dilated small bowel loops. Air and stool is seen within the colon. The findings appear mildly improved comparison to the prior study. The findings fairly stable and May relate to an ileus.. Clinical correlation and continued follow-up is recommended Repeat KUB revealed: Impression: 1. Nonobstructive bowel gas pattern. Repeat KUB revealed: Findings/ Impression: Postsurgical changes of the abdomen with skin lavern noted over the right hemiabdomen. Enteric tube is noted terminating within the stomach. There are gas-filled mildly distended small bowel loops which may be due to ileus with partial bowel obstruction not excluded. There is contrast noted within the nondistended large bowel. Bibasilar atelectasis. No acute bony abnormalities. Right total hip replacement with partially visualized intramedullary speedy and dynamic screw fixation of the left proximal femur Gallbladder ultrasound reported: FINDINGS: Examination is limited. The gallbladder appears distended. The gallbladder wall measures 2 mm in thickness, within normal limits. Possible sludge in the gallbladder. Negative reported sonographic valladares's sign. The common bile duct measures 6 mm in diameter, within normal limits. The liver measures at the upper limits of normal in size, at 16.4 cm in craniocaudal dimension. Heterogeneous echotexture of the liver. The pancreas is obscured by bowel gas. The right kidney measures 9.6 cm. There is no hydronephrosis. Limited evaluation of the right kidney. Echogenic focus, possible renal calculus at the midpole measuring 1.4 cm. The patient does have renal calculi on recent CT exam. IMPRESSION: 1. Limited examination as described above. Possible gallbladder sludge and distended gallbladder. No sonographic evidence of acute cholecystitis. 2. Additional nonacute findings as described above. HIDA scan revealed: Impression: 1. Unremarkable hepatobiliary study without evidence of acute cholecystitis. Left Hip Xry: FINDINGS/IMPRESSION: There is a displaced and impacted left intertrochanteric fracture. Patient is status post right hip arthroplasty. EKG revealed SVT Tele revealed SVT which later transitioned into sinus rhythm Echocardiogram revealed: Technically limited study secondary to poor acoustic windows. Left ventricle: Mild concentric left ventricular hypertrophy was seen. LVEF was 55-60%. Right ventricle was normal size with normal systolic function. Both atria were mildly dilated. Aortic valve was not well visualized. Aortic sclerosis with no stenosis was observed. [id number] aortic insufficiency was observed. Mild mitral/tricuspid regurgitation was seen. Tricuspid valve was not well visualized. Right ventricular systolic pressure was assessed around 25 mm Hg. There was no pericardial effusion. Ascending aorta was 4.5 cm. Patient is a 74-year-old gentleman who presented with abdominal pain and is being managed for small bowel obstruction. He does have history of paroxysmal AFib. Has not been taking his medications regularly and this was followed with tachyarrhythmia. Tachyarrhythmia was in favor of SVT. SVT responded to adenosine Small-bowel obstruction Obesity History of gastric bypass Paroxysmal AFib SVT Status post adenosine management Diabetes mellitus Obesity, morbid Gallstone Renal stone s/p laparotomy bowel perforation Cardiac suggestion for management: For now, manage in tele Follow-up electrolytes and kidney function tests and correct abnormalities Keep potassium above 4 and magnesium above 2 Cardizem, oral Fluid resuscitation Surgery and GI follow up Long-term continuation of anticoagulation is suggested. Further evaluation and management depends on the above and clinical course A total of 55 minutes was spent reviewing the patient record, examining the patient, making a diagnostic and therapeutic plan, discussing this plan with medical personnel, following up on diagnostic studies and following the patient for clinical stability excluding any and all procedures. At least 50% of this time was spent in direct, [id number] contact. Thank you for allowing me to participate in this patient's care. Further recommendations will depend on patient's clinical course. Please do not hesitate to contact me if you have any questions or concerns. This medical document was created using electronic medical record system with [employer] dictation system. Although this document has been carefully reviewed, there may still be some phonetic and typographical errors. These areas are purely typographical due to the imperfection of the software programs, and do not reflect any compromise in the patient's medical care. Dietary Evaluation Review Comments: 1. advance diet as tolerated per MD 2. Consider EN/TPN if Pt remains NPO for 48 hours Expected Outcomes/Goals: 1. Pt will consume >75% estimated needs within 2-3 days Plan discussed with: Patient, Other (nurse) BROOKS PRITCHARD MD Jun 22, 2024 08:43
--- NOTE | 2024-06-22 12:37 | DVHPN2 ---
Progress Note - Dictate Date Seen: Jun 22, 2024 Medical Necessity Reason Pt with a Central, PICC or Fol: No The following are medically ne: Central Line, Grewal Catheter Reason for grewal catheter: Strict I&O vital signs Vital Sign Date Time Temp Pulse Resp B/P (MAP) Pulse Ox O2 Delivery O2 Flow Rate FiO2 06/22/24 11:56 69 108/43 06/22/24 09:00 98.7 17 93 98.7 06/22/24 08:00 Nasal Cannula* 2 28 Total Intake and Output 06/21/24 06/21/24 06/22/24 15:00 23:00 07:00 Intake Total 750 ml Output Total 1500 ml 700 ml Balance -1500 ml 50 ml medications Current Medications Medications Dose Ordered Sig/Jason Route Start Time Stop Time Status Last Admin Dose Admin Acetaminophen 650 mg Q6HP PRN PO 05/22/24 15:00 06/20/24 06:28 650 MG Citalopram Hydrobromide 20 mg DAILY PO 05/23/24 10:00 06/22/24 09:27 20 MG Prochlorperazine Edisylate 10 mg Q6HP PRN IV 05/23/24 12:00 06/04/24 12:42 10 MG Atorvastatin Calcium 20 mg DAILY PO 05/24/24 10:00 06/22/24 09:27 20 MG Nortriptyline HCl 50 mg HS PO 05/23/24 22:00 06/21/24 20:50 50 MG Tamsulosin HCl 0.4 mg QPM PO 05/23/24 18:00 06/21/24 18:05 0.4 MG Docusate Calcium 240 mg DAILY PO 06/03/24 12:33 06/22/24 09:27 240 MG Metoprolol Tartrate 10 mg BID PO 06/03/24 22:00 UNV Sennosides 8.6 mg DAILYP PO 06/03/24 12:33 06/22/24 09:27 8.6 MG Duloxetine HCl 60 mg DAILY PO 06/03/24 12:34 06/22/24 09:27 60 MG Metoprolol Tartrate 25 mg BID PO 06/03/24 22:00 Hold 06/03/24 22:43 25 MG Metoprolol Tartrate 5 mg Q4HP PRN IV 06/05/24 11:15 Hold Pantoprazole Sodium 40 mg DAILY IV 06/06/24 10:00 06/22/24 09:28 40 MG Acetaminophen 650 mg Q6HP PRN PA 06/09/24 08:15 06/13/24 01:13 650 MG Metoprolol Tartrate 5 mg BID IV 06/11/24 13:45 UNV Labetalol HCl 10 mg Q2HPRN PRN IV 06/12/24 10:45 06/14/24 04:15 10 MG Hydralazine HCl 20 mg Q6HP PRN IV 06/14/24 03:45 Diltiazem HCl 30 mg Q6HR PO 06/18/24 12:00 06/22/24 11:56 30 MG Acetaminophen/ Hydrocodone Bitart 1 tab Q8HPRN PRN PO 06/19/24 22:00 06/22/24 06:04 1 TAB Polyethylene Glycol 17 gm DAILY PO 06/20/24 11:45 06/21/24 09:31 17 GM Apixaban 5 mg BID PO 06/21/24 13:45 06/22/24 09:27 5 MG objective General Appearance: alert, no distress HEENT: EOMI, PERRLA, normal external inspect of ears, no icterus, no nasal drainage Neck: no carotid bruit, no jugular venous distention (JVD), no lymphadenopathy Chest: normal thorax Respiratory: clear to auscultation, normal air movement Cardiovascular: regular rate and rhythm, no diastolic murmur, no jugular venous distention (JVD), no rub, no systolic murmur Abdominal: soft, no hepatomegaly, no mass, no splenomegaly, no tenderness Genitourinary: grossly normal external Musculoskeletal: no joint tenderness, no swelling Extremities: normal pulses, no calf tenderness, no clubbing, no cyanosis, no edema Skin: no bruising, no jaundice, no rash Neurological: alert, No focal deficit laboratory and microbiology Laboratory Tests 06/21/24 08:20 Test 06/21/24 08:20 Range/Units Serum Glucose 89 74-106 mg/dL Problem List 1. Small bowel obstruction Monitor, surgical consult, GI consult, NPO 2. HLD Monitor 3. Persistent atrial fibrillation Monitor, full dose Lovenox 4. Obesity Monitor 5. Hx gastric bypass Monitor 6. Benign essential HTN Monitor, antihypertensives 7. Gallstones Monitor, surgical consult, GI consult, NPO, HIDA scan 8. Sepsis Monitor 9. Septic Shock Monitor 10. Acute renal failure Monitor, nephrology consult Assessment/Plan Subjective Patient is awake alert Objective Patient is sitting on side of the bed working with physical therapy. Patient is status post small bowel repair for obstruction and perforated bowel and revision of his gastric bypass. Patient is having several bowel movements. He is weak and was able to ambulate 10 feet today. Plan Continue current treatment. remote sensing program manager reviewing transfer to custodial facility. Continue current treatment. Dietary Evaluation Review Comments: 1. advance diet as tolerated per MD 2. Consider EN/TPN if Pt remains NPO for 48 hours Expected Outcomes/Goals: 1. Pt will consume >75% estimated needs within 2-3 days Plan discussed with: Patient, Other TTEO [employer]ACT[employer] SUPERVISOR Jun 22, 2024 12:37
--- NOTE | 2024-06-22 15:38 | DVHPN2 ---
Progress Note Date Seen: Jun 22, 2024 Medical Necessity Reason Pt with a Central, PICC or Fol: No The following are medically ne: Central Line, Grewal Catheter Reason for grewal catheter: Strict I&O Objective vital signs Vital Sign Date Time Temp Pulse Resp B/P (MAP) Pulse Ox O2 Delivery O2 Flow Rate FiO2 06/22/24 11:56 69 108/43 06/22/24 09:00 98.7 17 93 98.7 06/22/24 08:00 Nasal Cannula* 2 28 Total Intake and Output 06/21/24 06/21/24 06/22/24 15:00 23:00 07:00 Intake Total 750 ml Output Total 1500 ml 700 ml Balance -1500 ml 50 ml medications Current Medications Medications Dose Ordered Sig/Jason Route Start Time Stop Time Status Last Admin Dose Admin Acetaminophen 650 mg Q6HP PRN PO 05/22/24 15:00 06/20/24 06:28 650 MG Atorvastatin Calcium 20 mg DAILY PO 05/24/24 10:00 06/22/24 09:27 20 MG Nortriptyline HCl 50 mg HS PO 05/23/24 22:00 06/21/24 20:50 50 MG Tamsulosin HCl 0.4 mg QPM PO 05/23/24 18:00 06/21/24 18:05 0.4 MG Docusate Calcium 240 mg DAILY PO 06/03/24 12:33 06/22/24 09:27 240 MG Metoprolol Tartrate 10 mg BID PO 06/03/24 22:00 UNV Sennosides 8.6 mg DAILYP PO 06/03/24 12:33 06/22/24 09:27 8.6 MG Duloxetine HCl 60 mg DAILY PO 06/03/24 12:34 06/22/24 09:27 60 MG Metoprolol Tartrate 25 mg BID PO 06/03/24 22:00 Hold 06/03/24 22:43 25 MG Metoprolol Tartrate 5 mg Q4HP PRN IV 06/05/24 11:15 Hold Pantoprazole Sodium 40 mg DAILY IV 06/06/24 10:00 06/22/24 09:28 40 MG Acetaminophen 650 mg Q6HP PRN VT 06/09/24 08:15 06/13/24 01:13 650 MG Metoprolol Tartrate 5 mg BID IV 06/11/24 13:45 UNV Labetalol HCl 10 mg Q2HPRN PRN IV 06/12/24 10:45 06/14/24 04:15 10 MG Hydralazine HCl 20 mg Q6HP PRN IV 06/14/24 03:45 Diltiazem HCl 30 mg Q6HR PO 06/18/24 12:00 06/22/24 11:56 30 MG Acetaminophen/ Hydrocodone Bitart 1 tab Q8HPRN PRN PO 06/19/24 22:00 06/22/24 06:04 1 TAB Polyethylene Glycol 17 gm DAILY PO 06/20/24 11:45 06/21/24 09:31 17 GM Apixaban 5 mg BID PO 06/21/24 13:45 06/22/24 09:27 5 MG laboratory and microbiology Laboratory Tests 06/21/24 08:20 Test 06/21/24 08:20 Range/Units Serum Glucose 89 74-106 mg/dL Microbiology Date/Time Source Procedure Growth Status 06/09/24 18:42 Lung Pending Resulted 06/09/24 18:42 Lung Pending Resulted 06/09/24 18:42 Lung Pending Resulted 06/09/24 18:42 Lung Pending Resulted 06/09/24 18:42 Lung - Final See Separate Report... Resulted 06/09/24 18:42 Bronchial Washings Gram Stain - Final Complete 06/09/24 18:42 Respiratory Culture - Final Escherichia coli Complete Problem List/Assessment/Plan Problem List/Assessment/Plan AFEBRILE VSS ABD SOFT LESS DISTENDED DRESSING DRY BM + FLATUS + NURSE AT BEDSIDE SONAM SOFT DIET NO COMPLICATIONS PHYSICAL THERAPY FOR AMBULATION DISCHARGE PLANNING ONGOING CLEARED FOR DISCHARGE Plan discussed with: Patient Dietary Evaluation Review Comments: 1. advance diet as tolerated per MD 2. Consider EN/TPN if Pt remains NPO for 48 hours Expected Outcomes/Goals: 1. Pt will consume >75% estimated needs within 2-3 days MARTHA ALVARES MD Jun 22, 2024 15:38
--- NOTE | 2024-06-22 20:45 | DVHPN2 ---
Progress Note - Dictate Date Seen: Jun 22, 2024 Medical Necessity Reason Pt with a Central, PICC or Fol: No The following are medically ne: Central Line, Grewal Catheter Reason for grewal catheter: Strict I&O Subjective No new complaints Patient is awake responsive Patient is tolerating a soft mechanical diet He is on supplemental oxygen Patient is having bowel activity No active GI bleeding was reported Patient was ambulating undergoing physical therapy Patient is undergoing wound care for left thigh and hip wound PROCEDURES: Exploratory laparotomy with drainage of intra-abdominal abscess, lysis of adhesions, and small bowel resection and anastomosis with revision of the distal gastric bypass anastomosis. vital signs Vital Sign Date Time Temp Pulse Resp B/P (MAP) Pulse Ox O2 Delivery O2 Flow Rate FiO2 06/22/24 20:00 Nasal Cannula* 2 28 06/22/24 17:28 76 107/69 06/22/24 17:00 99.5 17 91 99.5 Total Intake and Output 06/21/24 06/21/24 06/22/24 15:00 23:00 07:00 Intake Total 750 ml Output Total 1500 ml 700 ml Balance -1500 ml 50 ml medications Current Medications Medications Dose Ordered Sig/Jason Route Start Time Stop Time Status Last Admin Dose Admin Acetaminophen 650 mg Q6HP PRN PO 05/22/24 15:00 06/20/24 06:28 650 MG Atorvastatin Calcium 20 mg DAILY PO 05/24/24 10:00 06/22/24 09:27 20 MG Nortriptyline HCl 50 mg HS PO 05/23/24 22:00 06/21/24 20:50 50 MG Tamsulosin HCl 0.4 mg QPM PO 05/23/24 18:00 06/22/24 17:30 0.4 MG Docusate Calcium 240 mg DAILY PO 06/03/24 12:33 06/22/24 09:27 240 MG Metoprolol Tartrate 10 mg BID PO 06/03/24 22:00 UNV Sennosides 8.6 mg DAILYP PO 06/03/24 12:33 06/22/24 09:27 8.6 MG Duloxetine HCl 60 mg DAILY PO 06/03/24 12:34 06/22/24 09:27 60 MG Metoprolol Tartrate 25 mg BID PO 06/03/24 22:00 Hold 06/03/24 22:43 25 MG Metoprolol Tartrate 5 mg Q4HP PRN IV 06/05/24 11:15 Hold Pantoprazole Sodium 40 mg DAILY IV 06/06/24 10:00 06/22/24 09:28 40 MG Acetaminophen 650 mg Q6HP PRN MS 06/09/24 08:15 06/13/24 01:13 650 MG Metoprolol Tartrate 5 mg BID IV 06/11/24 13:45 UNV Labetalol HCl 10 mg Q2HPRN PRN IV 06/12/24 10:45 06/14/24 04:15 10 MG Hydralazine HCl 20 mg Q6HP PRN IV 06/14/24 03:45 Diltiazem HCl 30 mg Q6HR PO 06/18/24 12:00 06/22/24 17:28 30 MG Acetaminophen/ Hydrocodone Bitart 1 tab Q8HPRN PRN PO 06/19/24 22:00 06/22/24 06:04 1 TAB Polyethylene Glycol 17 gm DAILY PO 06/20/24 11:45 06/21/24 09:31 17 GM Apixaban 5 mg BID PO 06/21/24 13:45 06/22/24 09:27 5 MG objective General Appearance: Intubated off sedation starting to wake up on CPAP trial HEENT: EOMI, PERRLA, normal external inspect of ears, no icterus, no nasal drainage Neck: no carotid bruit, no jugular venous distention (JVD), no lymphadenopathy Chest: normal thorax Respiratory: clear to auscultation, normal air movement Cardiovascular: regular rate and rhythm, no diastolic murmur, no jugular venous distention (JVD), no rub, no systolic murmur Abdominal: soft, no hepatomegaly, no mass, no splenomegaly, dressing dry binder in place GIANNA drain Musculoskeletal: no joint tenderness, no swelling Extremities: normal pulses, no calf tenderness, no clubbing, no cyanosis, no edema Skin: no bruising, no jaundice, no rash Neurological: alert, No focal deficit laboratory and microbiology Laboratory Tests 06/21/24 08:20 Test 06/21/24 08:20 Range/Units Serum Glucose 89 74-106 mg/dL Problems(with codes): (1) Wound of left leg (2) INTESTINAL OBSTRUCT NOS (3) N&V (nausea and vomiting) Prognosis Plan Advance diet as tolerated Physical therapy ; wound care Discharge planning Patient wishes to arrange home health care through the [place] Dietary Evaluation Review Comments: 1. advance diet as tolerated per MD 2. Consider EN/TPN if Pt remains NPO for 48 hours Expected Outcomes/Goals: 1. Pt will consume >75% estimated needs within 2-3 days Plan discussed with: Patient SRINIVASAN AVLARES MD Jun 22, 2024 20:45
--- NOTE | 2024-06-22 21:34 | DVHPN2 ---
Progress Note - Dictate Date Seen: Jun 22, 2024 Medical Necessity Reason Pt with a Central, PICC or Fol: No The following are medically ne: Central Line, Grewal Catheter Reason for grewal catheter: Strict I&O Subjective Patient seen and examined at bedside. On supplemental oxygen Overnight events reviewed. vital signs Vital Sign Date Time Temp Pulse Resp B/P (MAP) Pulse Ox O2 Delivery O2 Flow Rate FiO2 06/22/24 20:00 Nasal Cannula* 2 28 06/22/24 17:28 76 107/69 06/22/24 17:00 99.5 17 91 99.5 Total Intake and Output 06/21/24 06/21/24 06/22/24 15:00 23:00 07:00 Intake Total 750 ml Output Total 1500 ml 700 ml Balance -1500 ml 50 ml medications Current Medications Medications Dose Ordered Sig/Jason Route Start Time Stop Time Status Last Admin Dose Admin Acetaminophen 650 mg Q6HP PRN PO 05/22/24 15:00 06/20/24 06:28 650 MG Atorvastatin Calcium 20 mg DAILY PO 05/24/24 10:00 06/22/24 09:27 20 MG Nortriptyline HCl 50 mg HS PO 05/23/24 22:00 06/22/24 21:12 50 MG Docusate Calcium 240 mg DAILY PO 06/03/24 12:33 06/22/24 09:27 240 MG Metoprolol Tartrate 10 mg BID PO 06/03/24 22:00 UNV Sennosides 8.6 mg DAILYP PO 06/03/24 12:33 06/22/24 09:27 8.6 MG Duloxetine HCl 60 mg DAILY PO 06/03/24 12:34 06/22/24 09:27 60 MG Metoprolol Tartrate 25 mg BID PO 06/03/24 22:00 Hold 06/03/24 22:43 25 MG Metoprolol Tartrate 5 mg Q4HP PRN IV 06/05/24 11:15 Hold Pantoprazole Sodium 40 mg DAILY IV 06/06/24 10:00 06/22/24 09:28 40 MG Acetaminophen 650 mg Q6HP PRN MI 06/09/24 08:15 06/13/24 01:13 650 MG Metoprolol Tartrate 5 mg BID IV 06/11/24 13:45 UNV Labetalol HCl 10 mg Q2HPRN PRN IV 06/12/24 10:45 06/14/24 04:15 10 MG Hydralazine HCl 20 mg Q6HP PRN IV 06/14/24 03:45 Diltiazem HCl 30 mg Q6HR PO 06/18/24 12:00 06/22/24 17:28 30 MG Acetaminophen/ Hydrocodone Bitart 1 tab Q8HPRN PRN PO 06/19/24 22:00 06/22/24 21:12 1 TAB Polyethylene Glycol 17 gm DAILY PO 06/20/24 11:45 06/21/24 09:31 17 GM Apixaban 5 mg BID PO 06/21/24 13:45 06/22/24 21:12 5 MG objective Gen.: Patient lying in bed in no apparent distress. On supplemental oxygen Head: Normocephalic, atraumatic Eyes: EOMI/PERRLA. Ears: Normal hearing. Normal anatomy. Neck/trachea: Trachea midline, supple. Nose: Normal external anatomy. Mouth: Moist mucous membranes. Chest: Decreased air entry bilaterally. No wheezing or rhonchi. Cardio vascular: Positive S1, positive S2. Regular rate and rhythm. Abdomen: Positive bowel sounds in all 4 quadrants. Soft, non-tender, non- distended. : Deferred. Rectal: Deferred Skin: Warm, dry. Extremities: 2+ radial pulses bilaterally. No lower extremity edema. Neuro: Awake, alert, oriented x3. No gross motor or sensory deficits. Cranial nerves II through XII intact. Gait not assessed. laboratory and microbiology Laboratory Tests 06/21/24 08:20 Test 06/21/24 08:20 Range/Units Serum Glucose 89 74-106 mg/dL Assessment/Plan Impression: Septic shock Acute hypoxic respiratory failure Acute kidney injury, resolved Small bowel obstruction, improving Atrial fibrillation Hx of gastric bypass (Dave-[id number]) Obesity, BMI 34.2 Atelectasis Events: On supplemental oxygen, 3 LPM NC Taper O2 as tolerated Continue antibiotics Incentive spirometry Pain control Avoid oversedation Continue Eliquis 5 mg BID Monitor hemoglobin TPN for nutritional support. Advance diet as tolerated Head of bed elevation Aspiration precautions LR at 100 ml/hr for IV fluid hydration Wound care. GI prophylaxis w/ Protonix DVT prophylaxis - Eliquis Awaiting SNF placement Patient is s/p exploratory laparotomy with lysis of adhesions. Rest of plan as noted below. Plan: S/p central line placement. Needed for administration of pressors. S/p extubation. On supplemental oxygen, 3 LPM NC Taper O2 as tolerated Antibiotics GI recommendations appreciated. Monitor WBC Hemoglobin - monitor Monitor renal function. Monitor electrolytes. Supplement as necessary. Monitor ins and outs. Creatinine trending down. Diet and lifestyle modifications discussed Obesity - complicates all care. GI/DVT prophylaxis. Awaiting SNF placement Prognosis: Poor given patient's multiple co-morbidities. Rest of plan per hospitalist and other consultants. Thank you Makenzie Mcnamara NP, for allowing me to participate in this patient's care. Further recommendations will depend on the patient's clinical course. Please do not hesitate to contact me if you have any questions or concerns. This medical document was created using an electronic medical record system with [employer] dictation system. Although these documentations are being carefully reviewed, there may still be some phonetic and typographical changes. The errors are purely typographical, due to imperfection on the software program, and do not reflect any compromise in the patient's medical care Dietary Evaluation Review Comments: 1. advance diet as tolerated per MD 2. Consider EN/TPN if Pt remains NPO for 48 hours Expected Outcomes/Goals: 1. Pt will consume >75% estimated needs within 2-3 days Plan discussed with: Patient, Other (NIRAV Viramontes) PRISCILLA CORREA MD Jun 22, 2024 21:34
[2024-06-23] VITALS (8 sets, daily range): BP systolic 132–145; BP diastolic 54–64; PULSE 64–85; RESP 7–20; TEMP 97.5–98.9; O2SAT 95–99
--- NOTE | 2024-06-23 07:41 | DVHPN2 ---
Progress Note - Dictate Date Seen: Jun 23, 2024 Medical Necessity Reason Pt with a Central, PICC or Fol: No The following are medically ne: Central Line, Grewal Catheter Reason for grewal catheter: Strict I&O vital signs Vital Sign Date Time Temp Pulse Resp B/P (MAP) Pulse Ox O2 Delivery O2 Flow Rate FiO2 06/23/24 05:49 73 135/54 06/23/24 05:00 97.5 7 95 97.5 06/22/24 20:00 Nasal Cannula* 2 28 Total Intake and Output 06/22/24 06/22/24 06/23/24 15:00 23:00 07:00 Intake Total 1225 ml 200 ml Output Total 1975 ml 800 ml Balance -750 ml -600 ml medications Current Medications Medications Dose Ordered Sig/Jason Route Start Time Stop Time Status Last Admin Dose Admin Acetaminophen 650 mg Q6HP PRN PO 05/22/24 15:00 06/20/24 06:28 650 MG Atorvastatin Calcium 20 mg DAILY PO 05/24/24 10:00 06/22/24 09:27 20 MG Docusate Calcium 240 mg DAILY PO 06/03/24 12:33 06/22/24 09:27 240 MG Metoprolol Tartrate 10 mg BID PO 06/03/24 22:00 UNV Sennosides 8.6 mg DAILYP PO 06/03/24 12:33 06/22/24 09:27 8.6 MG Duloxetine HCl 60 mg DAILY PO 06/03/24 12:34 06/22/24 09:27 60 MG Metoprolol Tartrate 25 mg BID PO 06/03/24 22:00 Hold 06/03/24 22:43 25 MG Metoprolol Tartrate 5 mg Q4HP PRN IV 06/05/24 11:15 Hold Pantoprazole Sodium 40 mg DAILY IV 06/06/24 10:00 06/22/24 09:28 40 MG Acetaminophen 650 mg Q6HP PRN MD 06/09/24 08:15 06/13/24 01:13 650 MG Metoprolol Tartrate 5 mg BID IV 06/11/24 13:45 UNV Labetalol HCl 10 mg Q2HPRN PRN IV 06/12/24 10:45 06/14/24 04:15 10 MG Hydralazine HCl 20 mg Q6HP PRN IV 06/14/24 03:45 Diltiazem HCl 30 mg Q6HR PO 06/18/24 12:00 06/23/24 05:49 30 MG Acetaminophen/ Hydrocodone Bitart 1 tab Q8HPRN PRN PO 06/19/24 22:00 06/22/24 21:12 1 TAB Polyethylene Glycol 17 gm DAILY PO 06/20/24 11:45 06/21/24 09:31 17 GM Apixaban 5 mg BID PO 06/21/24 13:45 06/22/24 21:12 5 MG laboratory and microbiology Laboratory Tests 06/21/24 08:20 Test 06/21/24 08:20 Range/Units Serum Glucose 89 74-106 mg/dL Assessment/Plan s/p Laparotomy (found to have contained bowel perforation, abscess) Has Bowel movements In tele floor Had mechanical fall and found to have hip fracture. S/p ORIF (earlier during admission course) Patient is a 74-year-old gentleman who presented on May 22, 2024 for epigastric pain. It seems that he ate sandwich in this was followed by repeated abdominal pain and vomiting. He has been admitted with small-bowel obstruction. He also was found to have gallstones and gastric outlet obstruction. He has been seen by surgery and GI. He has been having NG tube. Patient does have history of paroxysmal AFib and is on Eliquis as outpatient. On 05/24 2024, the patient was found to have tachyarrhythmia and cardiology was involved for its evaluation and management. Telemetry revealed tachyarrhythmia in the rate of 150s. Tele was in favor of SVT. Patient was attached to the monitor and 6 mg of adenosine was given which resulted in breaking of the tachyarrhythmia inpatient been back to sinus rhythm. As per patient, he usually follows with Cardiology in [facility]. As per patient, he did have angiogram (cardiac catheterization some years ago and was told that it was normal findings). Lying flat in bed and not in acute distress. No JVD. Mucosa is pink and wet. No carotid bruit. No goiter. Lungs are clear to auscultation. No thrill/gallop. Abdomen is soft. Extremities do not reveal edema Past medical history includes atrial fibrillation (on Eliquis as outpatient), DJD, heart failure (diastolic), COPD, hypertension, hyperlipidemia, reported diabetes mellitus, obesity, old history of tonsillectomy and gastric bypass surgery. He is known to have kidney stones. Echocardiogram of January 2020 revealed ejection fraction of 60% and biatrial enlargement Troponin (high sensitive): 19 - 11 TSH: 3.28 CT of the abdomen and pelvis revealed: IMPRESSION: 1. Cholelithiasis with the gallbladder distended. 2. Postop changes to the stomach with a fluid-filled distended stomach and dilated fluid-filled small bowel findings suggest small bowel obstruction. 3. Multiple bilateral nonobstructing renal calculi. 4. Prosthesis in the right hip. Chest x-ray revealed: Frontal chest radiograph demonstrates no acute osseous or superficial soft tissue abnormalities. Enteric tube visualized overlying the plane of the stomach. The trachea is midline. The cardiac silhouette and mediastinum are within normal limits. No pneumothorax, pleural effusions, or consolidations. Partially visualized gaseous distended loops of bowel. Repeat chest xry revealed: IMPRESSION: 1. Stable appearance of the support lines and tubes. 2. Bibasilar airspace disease similar to prior study. Repeat chest xry revealed: IMPRESSION: Endotracheal projects 0.7 cm above the level of the gary. Recommend retraction. Repeat chest xry revealed: Lines and Tubes: Interval removal of endotracheal and enteric tube compared to prior exam. Right internal jugular central venous catheter tip projects over the superior vena cava. Lungs: No focal consolidation. Atherosclerotic vascular calcifications of the thoracic aorta are noted. Pleura: No effusion. No pneumothorax. Cardiomediastinal contours: Unremarkable Bones: No acute osseous abnormality. IMPRESSION: Interval removal of endotracheal and enteric tube compared to prior exam.No acute cardiopulmonary disease. HIDA scan reported: IMPRESSION: 1. Findings may reflect chronic cholecystitis, cannot exclude acute cholecystitis due to lack of 30-60 minute images. KUB revealed: IMPRESSION: Findings concerning for small bowel obstruction versus ileus. Repeat KUB revealed: FINDINGS/IMPRESSION: Dilated loops of small bowel with gas and stool visualized in the colon. Findings appear improved compared to prior exam. Repeat KUB revealed: IMPRESSION: 1. There are air-filled dilated small bowel loops. Air and stool is seen within the colon. The findings appear mildly improved comparison to the prior study. The findings fairly stable and May relate to an ileus.. Clinical correlation and continued follow-up is recommended Repeat KUB revealed: Impression: 1. Nonobstructive bowel gas pattern. Repeat KUB revealed: Findings/ Impression: Postsurgical changes of the abdomen with skin lavern noted over the right hemiabdomen. Enteric tube is noted terminating within the stomach. There are gas-filled mildly distended small bowel loops which may be due to ileus with partial bowel obstruction not excluded. There is contrast noted within the nondistended large bowel. Bibasilar atelectasis. No acute bony abnormalities. Right total hip replacement with partially visualized intramedullary speedy and dynamic screw fixation of the left proximal femur Gallbladder ultrasound reported: FINDINGS: Examination is limited. The gallbladder appears distended. The gallbladder wall measures 2 mm in thickness, within normal limits. Possible sludge in the gallbladder. Negative reported sonographic valladares's sign. The common bile duct measures 6 mm in diameter, within normal limits. The liver measures at the upper limits of normal in size, at 16.4 cm in craniocaudal dimension. Heterogeneous echotexture of the liver. The pancreas is obscured by bowel gas. The right kidney measures 9.6 cm. There is no hydronephrosis. Limited evaluation of the right kidney. Echogenic focus, possible renal calculus at the midpole measuring 1.4 cm. The patient does have renal calculi on recent CT exam. IMPRESSION: 1. Limited examination as described above. Possible gallbladder sludge and distended gallbladder. No sonographic evidence of acute cholecystitis. 2. Additional nonacute findings as described above. HIDA scan revealed: Impression: 1. Unremarkable hepatobiliary study without evidence of acute cholecystitis. Left Hip Xry: FINDINGS/IMPRESSION: There is a displaced and impacted left intertrochanteric fracture. Patient is status post right hip arthroplasty. EKG revealed SVT Tele revealed SVT which later transitioned into sinus rhythm Echocardiogram revealed: Technically limited study secondary to poor acoustic windows. Left ventricle: Mild concentric left ventricular hypertrophy was seen. LVEF was 55-60%. Right ventricle was normal size with normal systolic function. Both atria were mildly dilated. Aortic valve was not well visualized. Aortic sclerosis with no stenosis was observed. [id number] aortic insufficiency was observed. Mild mitral/tricuspid regurgitation was seen. Tricuspid valve was not well visualized. Right ventricular systolic pressure was assessed around 25 mm Hg. There was no pericardial effusion. Ascending aorta was 4.5 cm. Patient is a 74-year-old gentleman who presented with abdominal pain and is being managed for small bowel obstruction. He does have history of paroxysmal AFib. Has not been taking his medications regularly and this was followed with tachyarrhythmia. Tachyarrhythmia was in favor of SVT. SVT responded to adenosine Small-bowel obstruction Obesity History of gastric bypass Paroxysmal AFib SVT Status post adenosine management Diabetes mellitus Obesity, morbid Gallstone Renal stone s/p laparotomy bowel perforation Cardiac suggestion for management: For now, manage in tele Follow-up electrolytes and kidney function tests and correct abnormalities Keep potassium above 4 and magnesium above 2 Cardizem, oral Fluid resuscitation Surgery and GI follow up Long-term continuation of anticoagulation is suggested. Further evaluation and management depends on the above and clinical course A total of 55 minutes was spent reviewing the patient record, examining the patient, making a diagnostic and therapeutic plan, discussing this plan with medical personnel, following up on diagnostic studies and following the patient for clinical stability excluding any and all procedures. At least 50% of this time was spent in direct, [id number] contact. Thank you for allowing me to participate in this patient's care. Further recommendations will depend on patient's clinical course. Please do not hesitate to contact me if you have any questions or concerns. This medical document was created using electronic medical record system with [employer] computerized dictation system. Although this document has been carefully reviewed, there may still be some phonetic and typographical errors. These areas are purely typographical due to the imperfection of the software programs, and do not reflect any compromise in the patient's medical care. Dietary Evaluation Review Comments: 1. advance diet as tolerated per MD 2. Consider EN/TPN if Pt remains NPO for 48 hours Expected Outcomes/Goals: 1. Pt will consume >75% estimated needs within 2-3 days Plan discussed with: Other (nurse) BROOKS PRITCHARD MD Jun 23, 2024 07:41
--- NOTE | 2024-06-23 10:13 | ECG ---
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
--- NOTE | 2024-06-23 10:13 | ECG ---
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
--- NOTE | 2024-06-23 14:07 | DVHDS2 ---
Discharge Summary Date of Admission May 22, 2024 at 14:57 Date of Discharge: Jun 19, 2024 Labs/Diagnostic Data: Laboratory Results Test 06/21/24 08:20 06/20/24 16:00 06/18/24 11:55 06/18/24 05:45 White Blood Count 2.5 10^3/uL (4.4-10.8) Red Blood Count 2.85 10^6/uL (4.5-5.90) Hemoglobin 8.5 g/dL (13.5-17.5) Hematocrit 25.3 % (41.0-53.0) Mean Corpuscular Volume 88.8 fL (80.0-100.0) Mean Corpuscular Hemoglobin 29.7 pg (28.0-32.0) Mean Corpuscular Hemoglobin Concent 33.4 g/dL (32.0-36.0) Red Cell Distribution Width 18.0 % (11.8-14.3) Platelet Count 181 10^3/uL (140-450) Mean Platelet Volume 8.1 fL (6.9-10.8) Neutrophils (%) (Auto) 67.2 % (37.0-80.0) Lymphocytes (%) (Auto) 19.2 % (10.0-50.0) Monocytes (%) (Auto) 11.9 % (0.0-12.0) Eosinophils (%) (Auto) 0.9 % (0.0-7.0) Basophils (%) (Auto) 0.8 % (0.0-2.0) Neutrophils # (Auto) 1.7 10 ^3/uL (1.6-8.6) Lymphocytes # (Auto) 0.5 10 ^3/uL (0.4-5.4) Monocytes # (Auto) 0.3 10 ^3/uL (0-1.3) Eosinophils # (Auto) 0 10 ^3/uL (0-0.8) Basophils # (Auto) 0 10 ^3/uL (0-0.2) Nucleated Red Blood Cells 0.3 % Sodium Level 136 mmol/L (136-145) Potassium Level 3.2 mmol/L (3.5-5.1) Chloride Level 102 mmol/L (98-107) Carbon Dioxide Level 28 mmol/L (20-31) Anion Gap 6 (5-15) Blood Urea Nitrogen 12 mg/dL (9-23) Creatinine 0.73 mg/dL (0.700-1.30) Glomerular Filtration Rate Calc 97 mL/min (>90) BUN/Creatinine Ratio 16.4 (10.0-20.0) Serum Glucose 89 mg/dL (74-106) Calcium Level 8.0 mg/dL (8.7-10.4) Stool Occult Blood Positive x 1 (Negative) Stool Occult Blood Sample #3 (Negative) POC Glucose 116 mg/dl (70-106) Phosphorus Level 4.1 mg/dL (2.4-5.1) Magnesium Level 2.2 mg/dL (1.6-2.6) Test 06/17/24 05:45 06/15/24 03:35 06/14/24 09:36 06/14/24 07:59 Iron Level 37 ug/dL (65-175) Total Iron Binding Capacity 192 ug/dL (250-425) Percent Iron Saturation 19.3 % (20-55) Ferritin 157.8 ng/mL (22-322) Total Bilirubin 0.3 mg/dL (0.2-1.0) Aspartate Amino Transferase (AST) 58 U/L (13-40) Alanine Aminotransferase (ALT) 53 U/L (7-40) Alkaline Phosphatase 156 U/L (46-116) Total Protein 3.9 g/dL (5.7-8.2) Albumin 2.2 g/dL (3.2-4.8) Vitamin B12 Level 364 pg/mL (211-911) Folic Acid 8.99 ng/mL (>5.38) Triglycerides Level 165 mg/dL (< 150) Blood Gas Specimen Type Arterial Blood Gas Sample Site Right radial Blood Gas Patient Temperature 37.0 Arterial Blood Date Drawn [id number] Arterial Blood pH 7.497 (7.350-7.450) Arterial Blood Partial Pressure CO2 29.9 mmHg (35.0-48.0) Arterial Blood Partial Pressure O2 100.7 mmHg (83.0-108.0) Arterial Blood HCO3 22.6 mmol/L (21.0-28.0) Arterial Blood Oxygen Saturation 97.1 % (94.0-98.0) Arterial Blood Base Excess -0.1 mmol/L (-2.0-3.0) Arterial Blood Oxyhemoglobin 96.1 % (94.0-98.0) Arterial Blood Carboxyhemoglobin 0.7 % (0.5-1.5) Arterial Blood Methemoglobin 0.3 % (0.0-1.5) Mich Test Modified Blood Gas Total Hemoglobin 9.70 g/dL (13.5-17.5) Blood Gas Modality Vent - cpap Blood Gas Spontaneous Rate 25 FiO2 % 30.0 Blood Gas Spontaneous Tidal Volume 700 Blood Gas Pressure Support 8 Blood Gas PEEP or CPAP 5.0 Specimen Drawn By [facility] Blood Gas Set Respiration Rate 24.0 Blood Gas Tidal Volume 500.0 Test 06/12/24 08:01 06/11/24 03:49 06/09/24 10:56 06/09/24 04:25 Blood Gas Inspiratory Pressure 21.0 Bl Gas Inspiratory/Expiratory Ratio 1:2.2 Random Vancomycin Level 16.3 ug/mL (5-10) Blood Gas Critical Value Read Back Yes Blood Gas Notified Whom Dr elías contreras Blood Gas Notified Time [id number] Blood Gas Notified By Mattress Filler rod peraza B-Type Natriuretic Peptide 59.94 pg/mL (0-100) Test 06/08/24 04:48 06/07/24 09:48 06/07/24 05:09 06/04/24 21:00 Prothrombin Time 11.9 sec (9.3-11.8) Prothrombin Time INR 1.13 (0.9-1.15) Activated Partial Thromboplast Time 31.0 SEC (24.5-34.5) Lactic Acid Level 1.6 mmol/L (0.4-2.0) Differential Total Cells Counted 100.0 (100) Neutrophils % (Manual) 73 (37.0-80.0) Band Neutrophils % (Manual) 14 Lymphocytes % (Manual) 9 (10.0-50.0) Monocytes % (Manual) 4 (0-12) Eosinophils % (Manual) 0 (0-7) Basophils % (Manual) 0 (0.0-2.0) Metamyelocytes % (manual) 0 Myelocytes % (Manual) 0 Promyelocytes % (Manual) 0 Blast Cells % (Manual) 0 Reactive Lymphocytes 0 Platelet Estimate Increased Urine Color Yellow (Yellow) Urine Clarity Turbid (Clear) Urine pH 5.0 (5.0-9.0) Urine Specific [place] 1.019 (1.001-1.035) Urine Protein 1+ (Negative) Urine Ketones Trace (Negative) Urine Blood Trace /uL (Negative) Urine Nitrite Negative (Negative) Urine Bilirubin 1+ (Negative) Urine Urobilinogen 2 mg/dL (Negative) Urine Leukocyte Esterase 1+ /uL (Negative) Urine RBC 26 /hpf (0 - 3) Urine WBC 17 /hpf (0 - 3) Urine Squamous Epithelial Cells Few /hpf (<5) Urine Bacteria Few /hpf (None Seen) Urine Hyaline Casts Few /lpf (0 - 2) Urine Mucus Few (None Seen) Urine Osmolality 337 mOsm/kg Urine Creatinine 146.30 mg/dL (30.0-125.0) Urine Protein/Creatinine Ratio 0.75 Urine Sodium 17 mmol/L (40-220) Urine Glucose Normal mg/dL (Normal) Urine Total Protein 109.2 mg/dL (1-14) Test 06/04/24 16:37 05/26/24 15:33 05/24/24 05:26 05/22/24 10:29 Vitamin D 25-Hydroxy 35.8 ng/mL (30.0-100) Parathyroid Hormone (Intact) 235.7 pg/mL (18.4-80.1) Hepatitis B Surface Antigen Negative (Negative) Hepatitis C Antibody Negative (Negative) Hemoglobin A1c 5.2 % A1C (<5.7) Troponin I High Sensitivity 11 ng/L (</=54) Cholesterol Level 144 mg/dL (< 200) LDL Cholesterol 80 mg/dL (< 100) HDL Cholesterol 48 mg/dL (40-59) Thyroid Stimulating Hormone (TSH) 3.28 uIU/mL (0.55-4.78) Other Laboratory Tests 06/21/24 08:20 Brief Hx & Hospital Course: 74M BIBA w/ prior Hx of hip surgery in 2013 which may be associated to the c/c of ABD pain. Pt reports that he was eating a sandwich and immediately after the pt started to feel epigastric ABD pain which radiated up into the pt chest, causing CP. Pt notes that he did eat the sandwich yesterday on 05/21/24. EMS states that the pt complained of having a C[place] and having soft stools. PMHx of AFIB, arthritis, CHF, COPD, High Lipids and HTN. SHx of Tonsillectomy. Upon evaluation, the patient reports mild abdominal distention with pain. The patient is concerned about his symptoms and would like to be further evaluated and treated. The patient will be admitted under hospitalist care to the medical-surgical unit. Denies chills, fever, N/V, SOB, CP or other associated symptoms, modifiers, or recent injuries at this time. Patient was admitted on May 22, 2024 for abdominal pain. Patient has a history of Dave-en-Y bypass. Patient was seen by gastroenterology as well as general surgery, infectious disease, and pulmonology. Patient had a long and complicated stay. Patient was briefly intubated in the ICU. Patient was seen by general surgery. Initially patient's ileus was thought to have cleared on its own. Patient's diet was advanced however he started having episodes of emesis. Patient also then developed elevated white blood cell count and fever. Upper endoscopy was canceled due to concern for possible ischemic bowel. Attempted to transfer patient to higher level of care however tertiary centers declined. Patient is status post exploratory laparotomy with bowel resection due to perforation irrigation and debridement. Patient was found to have sepsis with abscess and gastric bypass revision. Dr. Lorenz was assisted by Dr. Warren. Patient was briefly placed on the ventilator and was extubated successfully. Patient was very deconditioned he lives at home alone. Patient's diet was slowly advanced he was on TPN for several weeks. Patient then began working with physical therapy. Patient was still very weak only able to stand and transfer and take several steps. Due to his deconditioned state patient was transferred to a senior living facility for rehab. Patient completed his antibiotic course and he will continue physical therapy at the senior living facility. Patient was seen by cardiology. He was initially taken off anticoagulation for atrial fibrillation due to anemia. Patient received several units of blood. Patient also had thrombocytopenia most likely related to the surgery and sepsis. Patient's hemoglobin stabilized with no signs or symptoms of bleeding. Patient was then restarted on Eliquis and patient's hemoglobin was stable upon discharge. The patient received proper medical treatment and medications. Vital signs, Imaging and Laboratory Work was monitored daily. All consults recommendations were followed as provided. There were no complaints or new complaints upon discharge, all questions and concerns were answered. Patient was advised to return to the ER or call 911 if any headaches, dizziness, shortness of breath, chest pain, bleeding, fevers, or worsening of medical condition. Patient/Family was counseled about treatment plan, medications, possible side effects, patient verbalized understanding. All questions were answered to the best of my ability. The patient symptoms improved and they are okay to be DC. Condition at Discharge: Stable Final Diagnosis/Problems List SBO, S/O EXPLLORATORY LAPAROTOMY, COLON RESECTION, LYSIS OF ADHESIONS, REVISION OF GASTRIC BYPASS Discharge Disposition: [facility] Facility Discharge Instruct/Medications Diet: Cardiac 2g Na,low cholest Activity: No Restrictions, As Tolerated Follow Up/Referral: PCP 1 WEEK Discharge Statement: "Patient was advised to return to the ER or call 911 if any headaches, dizziness, shortness of breath, chest pain, abdominal pain, bleeding, fevers, or worsening of medical condition. Patient was counseled about treatment plan, medications, possible side effects, patientverbalized understanding. All questions were answered to the best of my ability. This discharge took greater then 30 minutes in planning, reviewing documentation, counseling the patient, and discussing with other team members." ASSESSMENT ASSESSMENT Assessment SBO, S/O EXPLLORATORY LAPAROTOMY, COLON RESECTION, LYSIS OF ADHESIONS, REVISION OF GASTRIC BYPASS TETO CRAMER NP Jun 23, 2024 14:07
--- NOTE | 2024-06-23 22:14 | DVHPN2 ---
Progress Note - Dictate Date Seen: Jun 23, 2024 Medical Necessity Reason Pt with a Central, PICC or Fol: No The following are medically ne: Central Line, Grewal Catheter Reason for grewal catheter: Strict I&O Subjective No new complaints Patient is awake responsive Patient is tolerating a soft mechanical diet He is on supplemental oxygen Patient is having bowel activity No active GI bleeding was reported Patient was ambulating undergoing physical therapy Patient is undergoing wound care for left thigh and hip wound PROCEDURES: Exploratory laparotomy with drainage of intra-abdominal abscess, lysis of adhesions, and small bowel resection and anastomosis with revision of the distal gastric bypass anastomosis. vital signs Vital Sign Date Time Temp Pulse Resp B/P (MAP) Pulse Ox O2 Delivery O2 Flow Rate FiO2 06/23/24 18:39 64 141/61 06/23/24 16:54 98.0 18 99 98.0 06/23/24 08:10 Nasal Cannula* 2 28 Total Intake and Output 06/22/24 06/22/24 06/23/24 15:00 23:00 07:00 Intake Total 1225 ml 200 ml Output Total 1975 ml 800 ml Balance -750 ml -600 ml medications Current Medications Medications Dose Ordered Sig/Jason Route Start Time Stop Time Status Last Admin Dose Admin Acetaminophen 650 mg Q6HP PRN PO 05/22/24 15:00 06/20/24 06:28 650 MG Docusate Calcium 240 mg DAILY PO 06/03/24 12:33 06/23/24 09:16 240 MG Metoprolol Tartrate 10 mg BID PO 06/03/24 22:00 UNV Sennosides 8.6 mg DAILYP PO 06/03/24 12:33 06/23/24 09:16 8.6 MG Duloxetine HCl 60 mg DAILY PO 06/03/24 12:34 06/23/24 09:16 60 MG Metoprolol Tartrate 25 mg BID PO 06/03/24 22:00 Hold 06/03/24 22:43 25 MG Metoprolol Tartrate 5 mg Q4HP PRN IV 06/05/24 11:15 Hold Pantoprazole Sodium 40 mg DAILY IV 06/06/24 10:00 06/23/24 09:16 40 MG Acetaminophen 650 mg Q6HP PRN [place] 06/09/24 08:15 06/13/24 01:13 650 MG Metoprolol Tartrate 5 mg BID IV 06/11/24 13:45 UNV Labetalol HCl 10 mg Q2HPRN PRN IV 06/12/24 10:45 06/14/24 04:15 10 MG Hydralazine HCl 20 mg Q6HP PRN IV 06/14/24 03:45 Diltiazem HCl 30 mg Q6HR PO 06/18/24 12:00 06/23/24 18:39 30 MG Acetaminophen/ Hydrocodone Bitart 1 tab Q8HPRN PRN PO 06/19/24 22:00 06/23/24 10:18 1 TAB Polyethylene Glycol 17 gm DAILY PO 06/20/24 11:45 06/23/24 09:17 17 GM Apixaban 5 mg BID PO 06/21/24 13:45 06/23/24 09:16 5 MG objective General Appearance: Intubated off sedation starting to wake up on CPAP trial HEENT: EOMI, PERRLA, normal external inspect of ears, no icterus, no nasal drainage Neck: no carotid bruit, no jugular venous distention (JVD), no lymphadenopathy Chest: normal thorax Respiratory: clear to auscultation, normal air movement Cardiovascular: regular rate and rhythm, no diastolic murmur, no jugular venous distention (JVD), no rub, no systolic murmur Abdominal: soft, no hepatomegaly, no mass, no splenomegaly, dressing dry binder in place GIANNA drain Musculoskeletal: no joint tenderness, no swelling Extremities: normal pulses, no calf tenderness, no clubbing, no cyanosis, no edema Skin: no bruising, no jaundice, no rash Neurological: alert, No focal deficit laboratory and microbiology Laboratory Tests 06/21/24 08:20 Test 06/21/24 08:20 Range/Units Serum Glucose 89 74-106 mg/dL Problems(with codes): (1) INTESTINAL OBSTRUCT NOS (2) Wound of left leg (3) N&V (nausea and vomiting) (4) Gastric bypass status for obesity Prognosis Plan Advance diet as tolerated Physical therapy ; wound care Discharge planning to SNF Dietary Evaluation Review Comments: 1. advance diet as tolerated per MD 2. Consider EN/TPN if Pt remains NPO for 48 hours Expected Outcomes/Goals: 1. Pt will consume >75% estimated needs within 2-3 days Plan discussed with: Patient SRINIVASAN ALVARES MD Jun 23, 2024 22:14
--- NOTE | 2024-06-23 22:54 | DVHPN2 ---
Progress Note - Dictate Date Seen: Jun 23, 2024 Medical Necessity Reason Pt with a Central, PICC or Fol: No The following are medically ne: Central Line, Grewal Catheter Reason for grewal catheter: Strict I&O Subjective Patient seen and examined at bedside. On supplemental oxygen Overnight events reviewed. vital signs Vital Sign Date Time Temp Pulse Resp B/P (MAP) Pulse Ox O2 Delivery O2 Flow Rate FiO2 06/23/24 21:00 97.8 84 18 133/62 (85) 97 97.8 06/23/24 08:10 Nasal Cannula* 2 28 Total Intake and Output 06/22/24 06/22/24 06/23/24 15:00 23:00 07:00 Intake Total 1225 ml 200 ml Output Total 1975 ml 800 ml Balance -750 ml -600 ml medications Current Medications Medications Dose Ordered Sig/Jason Route Start Time Stop Time Status Last Admin Dose Admin Acetaminophen 650 mg Q6HP PRN PO 05/22/24 15:00 06/20/24 06:28 650 MG Docusate Calcium 240 mg DAILY PO 06/03/24 12:33 06/23/24 09:16 240 MG Metoprolol Tartrate 10 mg BID PO 06/03/24 22:00 UNV Sennosides 8.6 mg DAILYP PO 06/03/24 12:33 06/23/24 09:16 8.6 MG Duloxetine HCl 60 mg DAILY PO 06/03/24 12:34 06/23/24 09:16 60 MG Metoprolol Tartrate 25 mg BID PO 06/03/24 22:00 Hold 06/03/24 22:43 25 MG Metoprolol Tartrate 5 mg Q4HP PRN IV 06/05/24 11:15 Hold Pantoprazole Sodium 40 mg DAILY IV 06/06/24 10:00 06/23/24 09:16 40 MG Acetaminophen 650 mg Q6HP PRN [place] 06/09/24 08:15 06/13/24 01:13 650 MG Metoprolol Tartrate 5 mg BID IV 06/11/24 13:45 UNV Labetalol HCl 10 mg Q2HPRN PRN IV 06/12/24 10:45 06/14/24 04:15 10 MG Hydralazine HCl 20 mg Q6HP PRN IV 06/14/24 03:45 Diltiazem HCl 30 mg Q6HR PO 06/18/24 12:00 06/23/24 18:39 30 MG Acetaminophen/ Hydrocodone Bitart 1 tab Q8HPRN PRN PO 06/19/24 22:00 06/23/24 10:18 1 TAB Polyethylene Glycol 17 gm DAILY PO 06/20/24 11:45 06/23/24 09:17 17 GM Apixaban 5 mg BID PO 06/21/24 13:45 06/23/24 09:16 5 MG objective Gen.: Patient lying in bed in no apparent distress. On supplemental oxygen Head: Normocephalic, atraumatic Eyes: EOMI/PERRLA. Ears: Normal hearing. Normal anatomy. Neck/trachea: Trachea midline, supple. Nose: Normal external anatomy. Mouth: Moist mucous membranes. Chest: Decreased air entry bilaterally. No wheezing or rhonchi. Cardio vascular: Positive S1, positive S2. Regular rate and rhythm. Abdomen: Positive bowel sounds in all 4 quadrants. Soft, non-tender, non- distended. : Deferred. Rectal: Deferred Skin: Warm, dry. Extremities: 2+ radial pulses bilaterally. No lower extremity edema. Neuro: Awake, alert, oriented x3. No gross motor or sensory deficits. Cranial nerves II through XII intact. Gait not assessed. laboratory and microbiology Laboratory Tests 06/21/24 08:20 Test 06/21/24 08:20 Range/Units Serum Glucose 89 74-106 mg/dL Assessment/Plan Impression: Septic shock Acute hypoxic respiratory failure Acute kidney injury, resolved Small bowel obstruction, improving Atrial fibrillation Hx of gastric bypass (Dave-en-Y) Obesity, BMI 34.2 Atelectasis Events: On supplemental oxygen, 2 LPM NC Taper O2 as tolerated Continue antibiotics Incentive spirometry Pain control Avoid oversedation Continue Eliquis 5 mg BID Monitor hemoglobin Tube feeds for nutritional support. Advance diet as tolerated Head of bed elevation Aspiration precautions LR at 100 ml/hr for IV fluid hydration Wound care. GI prophylaxis w/ Protonix DVT prophylaxis - Eliquis Pending discharge, awaiting SNF placement Patient is s/p exploratory laparotomy with lysis of adhesions. Rest of plan as noted below. Plan: S/p central line placement. Needed for administration of pressors. S/p extubation. On supplemental oxygen, 2 LPM NC Taper O2 as tolerated Antibiotics GI recommendations appreciated. Monitor WBC Hemoglobin - monitor Monitor renal function. Monitor electrolytes. Supplement as necessary. Monitor ins and outs. Creatinine trending down. Diet and lifestyle modifications discussed Obesity - complicates all care. GI/DVT prophylaxis. Awaiting SNF placement Prognosis: Poor given patient's multiple co-morbidities. Rest of plan per hospitalist and other consultants. Thank you Makenzie Mcnamara NP, for allowing me to participate in this patient's care. Further recommendations will depend on the patient's clinical course. Please do not hesitate to contact me if you have any questions or concerns. This medical document was created using an electronic medical record system with [employer] dictation system. Although these documentations are being carefully reviewed, there may still be some phonetic and typographical changes. The errors are purely typographical, due to imperfection on the software program, and do not reflect any compromise in the patient's medical care Dietary Evaluation Review Comments: 1. advance diet as tolerated per MD 2. Consider EN/TPN if Pt remains NPO for 48 hours Expected Outcomes/Goals: 1. Pt will consume >75% estimated needs within 2-3 days Plan discussed with: Patient, Other (NIRAV Courtney) PRISCILLA CORREA MD Jun 23, 2024 22:54
[2024-06-24 01:00] VITALS: BP 135/55; PULSE 75; RESP 17; TEMP 98; O2SAT 96
[2024-06-24 05:00] VITALS: BP 141/57; PULSE 72; RESP 17; TEMP 97.9; O2SAT 96
--- NOTE | 2024-06-24 07:41 | DVHPN2 ---
Progress Note - Dictate Date Seen: Jun 23, 2024 Medical Necessity Reason Pt with a Central, PICC or Fol: No The following are medically ne: Central Line, Grewal Catheter Reason for grewal catheter: Strict I&O vital signs Vital Sign Date Time Temp Pulse Resp B/P (MAP) Pulse Ox O2 Delivery O2 Flow Rate FiO2 06/24/24 05:45 72 141/57 06/24/24 05:00 97.9 17 96 97.9 06/23/24 20:00 Nasal Cannula* 2 28 Total Intake and Output 06/23/24 06/23/24 06/24/24 15:00 23:00 07:00 Intake Total 1800 ml 160 ml Output Total 1600 ml 1000 ml Balance 200 ml -840 ml medications Current Medications Medications Dose Ordered Sig/Jason Route Start Time Stop Time Status Last Admin Dose Admin Acetaminophen 650 mg Q6HP PRN PO 05/22/24 15:00 06/20/24 06:28 650 MG Docusate Calcium 240 mg DAILY PO 06/03/24 12:33 06/23/24 09:16 240 MG Metoprolol Tartrate 10 mg BID PO 06/03/24 22:00 UNV Sennosides 8.6 mg DAILYP PO 06/03/24 12:33 06/23/24 09:16 8.6 MG Duloxetine HCl 60 mg DAILY PO 06/03/24 12:34 06/23/24 09:16 60 MG Metoprolol Tartrate 25 mg BID PO 06/03/24 22:00 Hold 06/03/24 22:43 25 MG Metoprolol Tartrate 5 mg Q4HP PRN IV 06/05/24 11:15 Hold Pantoprazole Sodium 40 mg DAILY IV 06/06/24 10:00 06/23/24 09:16 40 MG Acetaminophen 650 mg Q6HP PRN [place] 06/09/24 08:15 06/13/24 01:13 650 MG Metoprolol Tartrate 5 mg BID IV 06/11/24 13:45 UNV Labetalol HCl 10 mg Q2HPRN PRN IV 06/12/24 10:45 06/14/24 04:15 10 MG Hydralazine HCl 20 mg Q6HP PRN IV 06/14/24 03:45 Diltiazem HCl 30 mg Q6HR PO 06/18/24 12:00 06/24/24 05:45 30 MG Acetaminophen/ Hydrocodone Bitart 1 tab Q8HPRN PRN PO 06/19/24 22:00 06/23/24 23:37 1 TAB Polyethylene Glycol 17 gm DAILY PO 06/20/24 11:45 06/23/24 09:17 17 GM Apixaban 5 mg BID PO 06/21/24 13:45 06/23/24 23:37 5 MG objective General Appearance: alert, no distress HEENT: EOMI, PERRLA, normal external inspect of ears, no icterus, no nasal drainage Neck: no carotid bruit, no jugular venous distention (JVD), no lymphadenopathy Chest: normal thorax Respiratory: clear to auscultation, normal air movement Cardiovascular: regular rate and rhythm, no diastolic murmur, no jugular venous distention (JVD), no rub, no systolic murmur Abdominal: soft, no hepatomegaly, no mass, no splenomegaly, no tenderness Genitourinary: grossly normal external Musculoskeletal: no joint tenderness, no swelling Extremities: normal pulses, no calf tenderness, no clubbing, no cyanosis, no edema Skin: no bruising, no jaundice, no rash Neurological: alert, No focal deficit laboratory and microbiology Laboratory Tests 06/21/24 08:20 Test 06/21/24 08:20 Range/Units Serum Glucose 89 74-106 mg/dL Problem List 1. Small bowel obstruction Monitor, surgical consult, GI consult, NPO 2. HLD Monitor 3. Persistent atrial fibrillation Monitor, full dose Lovenox 4. Obesity Monitor 5. Hx gastric bypass Monitor 6. Benign essential HTN Monitor, antihypertensives 7. Gallstones Monitor, surgical consult, GI consult, NPO, HIDA scan 8. Sepsis Monitor 9. Septic Shock Monitor 10. Acute renal failure Monitor, nephrology consult Assessment/Plan Subjective: Patient is awake and alert. No acute complaints at this time. Objective: Patient was admitted for abdominal pain. Patient was supposed to be discharged, but transportation services were unaware that the patient was on oxygen, and discharge was held. Plan: Coordinate transportation services and discharge planning. Monitor for any changes in status. Dietary Evaluation Review Comments: 1. advance diet as tolerated per MD 2. Consider EN/TPN if Pt remains NPO for 48 hours Expected Outcomes/Goals: 1. Pt will consume >75% estimated needs within 2-3 days Plan discussed with: Patient, Other KRAFT,TETO M [employer] MEMBER Jun 24, 2024 07:41
--- NOTE | 2024-06-24 07:44 | DVHPN2 ---
Progress Note - Dictate Date Seen: Jun 24, 2024 Medical Necessity Reason Pt with a Central, PICC or Fol: No The following are medically ne: Central Line, Grewal Catheter Reason for grewal catheter: Strict I&O vital signs Vital Sign Date Time Temp Pulse Resp B/P (MAP) Pulse Ox O2 Delivery O2 Flow Rate FiO2 06/24/24 05:45 72 141/57 06/24/24 05:00 97.9 17 96 97.9 06/23/24 20:00 Nasal Cannula* 2 28 Total Intake and Output 06/23/24 06/23/24 06/24/24 15:00 23:00 07:00 Intake Total 1800 ml 160 ml Output Total 1600 ml 1000 ml Balance 200 ml -840 ml medications Current Medications Medications Dose Ordered Sig/Jason Route Start Time Stop Time Status Last Admin Dose Admin Acetaminophen 650 mg Q6HP PRN PO 05/22/24 15:00 06/20/24 06:28 650 MG Docusate Calcium 240 mg DAILY PO 06/03/24 12:33 06/23/24 09:16 240 MG Metoprolol Tartrate 10 mg BID PO 06/03/24 22:00 UNV Sennosides 8.6 mg DAILYP PO 06/03/24 12:33 06/23/24 09:16 8.6 MG Duloxetine HCl 60 mg DAILY PO 06/03/24 12:34 06/23/24 09:16 60 MG Metoprolol Tartrate 25 mg BID PO 06/03/24 22:00 Hold 06/03/24 22:43 25 MG Metoprolol Tartrate 5 mg Q4HP PRN IV 06/05/24 11:15 Hold Pantoprazole Sodium 40 mg DAILY IV 06/06/24 10:00 06/23/24 09:16 40 MG Acetaminophen 650 mg Q6HP PRN MO 06/09/24 08:15 06/13/24 01:13 650 MG Metoprolol Tartrate 5 mg BID IV 06/11/24 13:45 UNV Labetalol HCl 10 mg Q2HPRN PRN IV 06/12/24 10:45 06/14/24 04:15 10 MG Hydralazine HCl 20 mg Q6HP PRN IV 06/14/24 03:45 Diltiazem HCl 30 mg Q6HR PO 06/18/24 12:00 06/24/24 05:45 30 MG Acetaminophen/ Hydrocodone Bitart 1 tab Q8HPRN PRN PO 06/19/24 22:00 06/23/24 23:37 1 TAB Polyethylene Glycol 17 gm DAILY PO 06/20/24 11:45 06/23/24 09:17 17 GM Apixaban 5 mg BID PO 06/21/24 13:45 06/23/24 23:37 5 MG laboratory and microbiology Laboratory Tests 06/21/24 08:20 Test 06/21/24 08:20 Range/Units Serum Glucose 89 74-106 mg/dL Assessment/Plan s/p Laparotomy (found to have contained bowel perforation, abscess) Has Bowel movements In tele floor Had mechanical fall and found to have hip fracture. S/p ORIF (earlier during admission course) Patient is a 74-year-old gentleman who presented on May 22, 2024 for epigastric pain. It seems that he ate sandwich in this was followed by repeated abdominal pain and vomiting. He has been admitted with small-bowel obstruction. He also was found to have gallstones and gastric outlet obstruction. He has been seen by surgery and GI. He has been having NG tube. Patient does have history of paroxysmal AFib and is on Eliquis as outpatient. On 05/24 2024, the patient was found to have tachyarrhythmia and cardiology was involved for its evaluation and management. Telemetry revealed tachyarrhythmia in the rate of 150s. Tele was in favor of SVT. Patient was attached to the monitor and 6 mg of adenosine was given which resulted in breaking of the tachyarrhythmia inpatient been back to sinus rhythm. As per patient, he usually follows with Cardiology in [facility]. As per patient, he did have angiogram (cardiac catheterization some years ago and was told that it was normal findings). Lying flat in bed and not in acute distress. No JVD. Mucosa is pink and wet. No carotid bruit. No goiter. Lungs are clear to auscultation. No thrill/gallop. Abdomen is soft. Extremities do not reveal edema Past medical history includes atrial fibrillation (on Eliquis as outpatient), DJD, heart failure (diastolic), COPD, hypertension, hyperlipidemia, reported diabetes mellitus, obesity, old history of tonsillectomy and gastric bypass surgery. He is known to have kidney stones. Echocardiogram of January 2020 revealed ejection fraction of 60% and biatrial enlargement Troponin (high sensitive): 19 - 11 TSH: 3.28 CT of the abdomen and pelvis revealed: IMPRESSION: 1. Cholelithiasis with the gallbladder distended. 2. Postop changes to the stomach with a fluid-filled distended stomach and dilated fluid-filled small bowel findings suggest small bowel obstruction. 3. Multiple bilateral nonobstructing renal calculi. 4. Prosthesis in the right hip. Chest x-ray revealed: Frontal chest radiograph demonstrates no acute osseous or superficial soft tissue abnormalities. Enteric tube visualized overlying the plane of the stomach. The trachea is midline. The cardiac silhouette and mediastinum are within normal limits. No pneumothorax, pleural effusions, or consolidations. Partially visualized gaseous distended loops of bowel. Repeat chest xry revealed: IMPRESSION: 1. Stable appearance of the support lines and tubes. 2. Bibasilar airspace disease similar to prior study. Repeat chest xry revealed: IMPRESSION: Endotracheal projects 0.7 cm above the level of the gary. Recommend retraction. Repeat chest xry revealed: Lines and Tubes: Interval removal of endotracheal and enteric tube compared to prior exam. Right internal jugular central venous catheter tip projects over the superior vena cava. Lungs: No focal consolidation. Atherosclerotic vascular calcifications of the thoracic aorta are noted. Pleura: No effusion. No pneumothorax. Cardiomediastinal contours: Unremarkable Bones: No acute osseous abnormality. IMPRESSION: Interval removal of endotracheal and enteric tube compared to prior exam.No acute cardiopulmonary disease. HIDA scan reported: IMPRESSION: 1. Findings may reflect chronic cholecystitis, cannot exclude acute cholecystitis due to lack of 30-60 minute images. KUB revealed: IMPRESSION: Findings concerning for small bowel obstruction versus ileus. Repeat KUB revealed: FINDINGS/IMPRESSION: Dilated loops of small bowel with gas and stool visualized in the colon. Findings appear improved compared to prior exam. Repeat KUB revealed: IMPRESSION: 1. There are air-filled dilated small bowel loops. Air and stool is seen within the colon. The findings appear mildly improved comparison to the prior study. The findings fairly stable and May relate to an ileus.. Clinical correlation and continued follow-up is recommended Repeat KUB revealed: Impression: 1. Nonobstructive bowel gas pattern. Repeat KUB revealed: Findings/ Impression: Postsurgical changes of the abdomen with skin lavern noted over the right hemiabdomen. Enteric tube is noted terminating within the stomach. There are gas-filled mildly distended small bowel loops which may be due to ileus with partial bowel obstruction not excluded. There is contrast noted within the nondistended large bowel. Bibasilar atelectasis. No acute bony abnormalities. Right total hip replacement with partially visualized intramedullary speedy and dynamic screw fixation of the left proximal femur Gallbladder ultrasound reported: FINDINGS: Examination is limited. The gallbladder appears distended. The gallbladder wall measures 2 mm in thickness, within normal limits. Possible sludge in the gallbladder. Negative reported sonographic valladares's sign. The common bile duct measures 6 mm in diameter, within normal limits. The liver measures at the upper limits of normal in size, at 16.4 cm in craniocaudal dimension. Heterogeneous echotexture of the liver. The pancreas is obscured by bowel gas. The right kidney measures 9.6 cm. There is no hydronephrosis. Limited evaluation of the right kidney. Echogenic focus, possible renal calculus at the midpole measuring 1.4 cm. The patient does have renal calculi on recent CT exam. IMPRESSION: 1. Limited examination as described above. Possible gallbladder sludge and distended gallbladder. No sonographic evidence of acute cholecystitis. 2. Additional nonacute findings as described above. HIDA scan revealed: Impression: 1. Unremarkable hepatobiliary study without evidence of acute cholecystitis. Left Hip Xry: FINDINGS/IMPRESSION: There is a displaced and impacted left intertrochanteric fracture. Patient is status post right hip arthroplasty. EKG revealed SVT Tele revealed SVT which later transitioned into sinus rhythm Echocardiogram revealed: Technically limited study secondary to poor acoustic windows. Left ventricle: Mild concentric left ventricular hypertrophy was seen. LVEF was 55-60%. Right ventricle was normal size with normal systolic function. Both atria were mildly dilated. Aortic valve was not well visualized. Aortic sclerosis with no stenosis was observed. [id number] aortic insufficiency was observed. Mild mitral/tricuspid regurgitation was seen. Tricuspid valve was not well visualized. Right ventricular systolic pressure was assessed around 25 mm Hg. There was no pericardial effusion. Ascending aorta was 4.5 cm. Patient is a 74-year-old gentleman who presented with abdominal pain and is being managed for small bowel obstruction. He does have history of paroxysmal AFib. Has not been taking his medications regularly and this was followed with tachyarrhythmia. Tachyarrhythmia was in favor of SVT. SVT responded to adenosine Small-bowel obstruction Obesity History of gastric bypass Paroxysmal AFib SVT Status post adenosine management Diabetes mellitus Obesity, morbid Gallstone Renal stone s/p laparotomy bowel perforation Cardiac suggestion for management: Manage on tele Follow-up electrolytes and kidney function tests and correct abnormalities Keep potassium above 4 and magnesium above 2 Cardizem, oral Surgery and GI follow up Cardiac felix, is stable and can be followed as outpatient. Long-term continuation of anticoagulation is suggested. Further evaluation and management depends on the above and clinical course A total of 55 minutes was spent reviewing the patient record, examining the patient, making a diagnostic and therapeutic plan, discussing this plan with medical personnel, following up on diagnostic studies and following the patient for clinical stability excluding any and all procedures. At least 50% of this time was spent in direct, [id number] contact. Thank you for allowing me to participate in this patient's care. Further recommendations will depend on patient's clinical course. Please do not hesitate to contact me if you have any questions or concerns. This medical document was created using electronic medical record system with [employer] computerized dictation system. Although this document has been carefully reviewed, there may still be some phonetic and typographical errors. These areas are purely typographical due to the imperfection of the software programs, and do not reflect any compromise in the patient's medical care. Dietary Evaluation Review Comments: 1. advance diet as tolerated per MD 2. Consider EN/TPN if Pt remains NPO for 48 hours Expected Outcomes/Goals: 1. Pt will consume >75% estimated needs within 2-3 days Plan discussed with: Patient, Other (nurse) BROOKS PRITCHARD MD Jun 24, 2024 07:44
[2024-06-24 08:00] VITALS: PULSE 79
[2024-06-24 08:59] VITALS: BP 131/59; PULSE 80; RESP 17; TEMP 97.6; O2SAT 99
[2024-06-24 13:00] VITALS: BP 133/59; PULSE 73; RESP 16; TEMP 97.9; O2SAT 97
--- NOTE | 2024-06-24 14:49 | DVHDS2 ---
Discharge Summary Date of Admission May 22, 2024 at 14:57 Date of Discharge: Jun 23, 2024 Labs/Diagnostic Data: Laboratory Results Test 06/21/24 08:20 06/20/24 16:00 06/18/24 11:55 06/18/24 05:45 White Blood Count 2.5 10^3/uL (4.4-10.8) Red Blood Count 2.85 10^6/uL (4.5-5.90) Hemoglobin 8.5 g/dL (13.5-17.5) Hematocrit 25.3 % (41.0-53.0) Mean Corpuscular Volume 88.8 fL (80.0-100.0) Mean Corpuscular Hemoglobin 29.7 pg (28.0-32.0) Mean Corpuscular Hemoglobin Concent 33.4 g/dL (32.0-36.0) Red Cell Distribution Width 18.0 % (11.8-14.3) Platelet Count 181 10^3/uL (140-450) Mean Platelet Volume 8.1 fL (6.9-10.8) Neutrophils (%) (Auto) 67.2 % (37.0-80.0) Lymphocytes (%) (Auto) 19.2 % (10.0-50.0) Monocytes (%) (Auto) 11.9 % (0.0-12.0) Eosinophils (%) (Auto) 0.9 % (0.0-7.0) Basophils (%) (Auto) 0.8 % (0.0-2.0) Neutrophils # (Auto) 1.7 10 ^3/uL (1.6-8.6) Lymphocytes # (Auto) 0.5 10 ^3/uL (0.4-5.4) Monocytes # (Auto) 0.3 10 ^3/uL (0-1.3) Eosinophils # (Auto) 0 10 ^3/uL (0-0.8) Basophils # (Auto) 0 10 ^3/uL (0-0.2) Nucleated Red Blood Cells 0.3 % Sodium Level 136 mmol/L (136-145) Potassium Level 3.2 mmol/L (3.5-5.1) Chloride Level 102 mmol/L (98-107) Carbon Dioxide Level 28 mmol/L (20-31) Anion Gap 6 (5-15) Blood Urea Nitrogen 12 mg/dL (9-23) Creatinine 0.73 mg/dL (0.700-1.30) Glomerular Filtration Rate Calc 97 mL/min (>90) BUN/Creatinine Ratio 16.4 (10.0-20.0) Serum Glucose 89 mg/dL (74-106) Calcium Level 8.0 mg/dL (8.7-10.4) Stool Occult Blood Positive x 1 (Negative) Stool Occult Blood Sample #3 (Negative) POC Glucose 116 mg/dl (70-106) Phosphorus Level 4.1 mg/dL (2.4-5.1) Magnesium Level 2.2 mg/dL (1.6-2.6) Test 06/17/24 05:45 06/15/24 03:35 06/14/24 09:36 06/14/24 07:59 Iron Level 37 ug/dL (65-175) Total Iron Binding Capacity 192 ug/dL (250-425) Percent Iron Saturation 19.3 % (20-55) Ferritin 157.8 ng/mL (22-322) Total Bilirubin 0.3 mg/dL (0.2-1.0) Aspartate Amino Transferase (AST) 58 U/L (13-40) Alanine Aminotransferase (ALT) 53 U/L (7-40) Alkaline Phosphatase 156 U/L (46-116) Total Protein 3.9 g/dL (5.7-8.2) Albumin 2.2 g/dL (3.2-4.8) Vitamin B12 Level 364 pg/mL (211-911) Folic Acid 8.99 ng/mL (>5.38) Triglycerides Level 165 mg/dL (< 150) Blood Gas Specimen Type Arterial Blood Gas Sample Site Right radial Blood Gas Patient Temperature 37.0 Arterial Blood Date Drawn [id number] Arterial Blood pH 7.497 (7.350-7.450) Arterial Blood Partial Pressure CO2 29.9 mmHg (35.0-48.0) Arterial Blood Partial Pressure O2 100.7 mmHg (83.0-108.0) Arterial Blood HCO3 22.6 mmol/L (21.0-28.0) Arterial Blood Oxygen Saturation 97.1 % (94.0-98.0) Arterial Blood Base Excess -0.1 mmol/L (-2.0-3.0) Arterial Blood Oxyhemoglobin 96.1 % (94.0-98.0) Arterial Blood Carboxyhemoglobin 0.7 % (0.5-1.5) Arterial Blood Methemoglobin 0.3 % (0.0-1.5) Mich Test Modified Blood Gas Total Hemoglobin 9.70 g/dL (13.5-17.5) Blood Gas Modality Vent - cpap Blood Gas Spontaneous Rate 25 FiO2 % 30.0 Blood Gas Spontaneous Tidal Volume 700 Blood Gas Pressure Support 8 Blood Gas PEEP or CPAP 5.0 Specimen Drawn By [facility] Blood Gas Set Respiration Rate 24.0 Blood Gas Tidal Volume 500.0 Test 06/12/24 08:01 06/11/24 03:49 06/09/24 10:56 06/09/24 04:25 Blood Gas Inspiratory Pressure 21.0 Bl Gas Inspiratory/Expiratory Ratio 1:2.2 Random Vancomycin Level 16.3 ug/mL (5-10) Blood Gas Critical Value Read Back Yes Blood Gas Notified Whom Dr elías contreras Blood Gas Notified Time [id number] Blood Gas Notified By Cash Processing Specialist rod peraza B-Type Natriuretic Peptide 59.94 pg/mL (0-100) Test 06/08/24 04:48 06/07/24 09:48 06/07/24 05:09 06/04/24 21:00 Prothrombin Time 11.9 sec (9.3-11.8) Prothrombin Time INR 1.13 (0.9-1.15) Activated Partial Thromboplast Time 31.0 SEC (24.5-34.5) Lactic Acid Level 1.6 mmol/L (0.4-2.0) Differential Total Cells Counted 100.0 (100) Neutrophils % (Manual) 73 (37.0-80.0) Band Neutrophils % (Manual) 14 Lymphocytes % (Manual) 9 (10.0-50.0) Monocytes % (Manual) 4 (0-12) Eosinophils % (Manual) 0 (0-7) Basophils % (Manual) 0 (0.0-2.0) Metamyelocytes % (manual) 0 Myelocytes % (Manual) 0 Promyelocytes % (Manual) 0 Blast Cells % (Manual) 0 Reactive Lymphocytes 0 Platelet Estimate Increased Urine Color Yellow (Yellow) Urine Clarity Turbid (Clear) Urine pH 5.0 (5.0-9.0) Urine Specific Alkol 1.019 (1.001-1.035) Urine Protein 1+ (Negative) Urine Ketones Trace (Negative) Urine Blood Trace /uL (Negative) Urine Nitrite Negative (Negative) Urine Bilirubin 1+ (Negative) Urine Urobilinogen 2 mg/dL (Negative) Urine Leukocyte Esterase 1+ /uL (Negative) Urine RBC 26 /hpf (0 - 3) Urine WBC 17 /hpf (0 - 3) Urine Squamous Epithelial Cells Few /hpf (<5) Urine Bacteria Few /hpf (None Seen) Urine Hyaline Casts Few /lpf (0 - 2) Urine Mucus Few (None Seen) Urine Osmolality 337 mOsm/kg Urine Creatinine 146.30 mg/dL (30.0-125.0) Urine Protein/Creatinine Ratio 0.75 Urine Sodium 17 mmol/L (40-220) Urine Glucose Normal mg/dL (Normal) Urine Total Protein 109.2 mg/dL (1-14) Test 06/04/24 16:37 05/26/24 15:33 05/24/24 05:26 05/22/24 10:29 Vitamin D 25-Hydroxy 35.8 ng/mL (30.0-100) Parathyroid Hormone (Intact) 235.7 pg/mL (18.4-80.1) Hepatitis B Surface Antigen Negative (Negative) Hepatitis C Antibody Negative (Negative) Hemoglobin A1c 5.2 % A1C (<5.7) Troponin I High Sensitivity 11 ng/L (</=54) Cholesterol Level 144 mg/dL (< 200) LDL Cholesterol 80 mg/dL (< 100) HDL Cholesterol 48 mg/dL (40-59) Thyroid Stimulating Hormone (TSH) 3.28 uIU/mL (0.55-4.78) Other Laboratory Tests 06/21/24 08:20 Brief Hx & Hospital Course: 74M BIBA w/ prior Hx of hip surgery in 2013 which may be associated to the c/c of ABD pain. Pt reports that he was eating a sandwich and immediately after the pt started to feel epigastric ABD pain which radiated up into the pt chest, causing CP. Pt notes that he did eat the sandwich yesterday on 05/21/24. EMS states that the pt complained of having a CARRINGTON and having soft stools. PMHx of AFIB, arthritis, CHF, COPD, High Lipids and HTN. SHx of Tonsillectomy. Upon evaluation, the patient reports mild abdominal distention with pain. The patient is concerned about his symptoms and would like to be further evaluated and treated. The patient will be admitted under hospitalist care to the medical-surgical unit. Denies chills, fever, N/V, SOB, CP or other associated symptoms, modifiers, or recent injuries at this time. Patient was admitted on May 22, 2024 for abdominal pain. Patient has a history of Dave-en-Y bypass. Patient was seen by gastroenterology as well as general surgery, infectious disease, and pulmonology. Patient had a long and complicated stay. Patient was briefly intubated in the ICU. Initially patient's ileus was thought to have cleared on its own. Patient's diet was advanced however he started having episodes of emesis. Patient also then developed elevated white blood cell count and fever. Upper endoscopy was canceled due to concern for possible ischemic bowel. Attempted to transfer patient to higher level of care however tertiary centers declined. Patient is status post exploratory laparotomy with bowel resection due to perforation irrigation and debridement. Patient was found to have sepsis with abscess and gastric bypass revision. Dr. Lorenz was assisted by Dr. Warren. Patient was briefly placed on the ventilator and was extubated successfully. Patient was very deconditioned he lives at home alone. Patient's diet was slowly advanced he was on TPN for several weeks. Patient then began working with physical therapy. Patient was still very weak only able to stand and transfer and take several steps. Due to his deconditioned state patient [facility]. Patient completed his antibiotic course and he will continue physical therapy at the [facility] facility. Patient was seen by cardiology. He was initially taken off anticoagulation for atrial fibrillation due to anemia. Patient received several units of blood. Patient also had thrombocytopenia most likely related to the surgery and sepsis. Patient's hemoglobin stabilized with no signs or symptoms of bleeding. Patient was then restarted on Eliquis and patient's hemoglobin was stable upon discharge. Patient was discharged on two liters of oxygen via nasal cannula. Patient reports using oxygen at night. The patient received proper medical treatment and medications. Vital signs, Imaging and Laboratory Work was monitored daily. All consults recommendations were followed as provided. There were no complaints or new complaints upon discharge, all questions and concerns were answered. Patient was advised to return to the ER or call 911 if any headaches, dizziness, shortness of breath, chest pain, bleeding, fevers, or worsening of medical condition. Patient/Family was counseled about treatment plan, medications, possible side effects, patient verbalized understanding. All questions were answered to the best of my ability. The patient symptoms improved and they are okay to be DC. Condition at Discharge: Stable Final Diagnosis/Problems List SBO, S/O EXPLLORATORY LAPAROTOMY, COLON RESECTION, LYSIS OF ADHESIONS, REVISION OF GASTRIC BYPASS Discharge Disposition: Half-Way Facility Discharge Instruct/Medications Diet: Cardiac 2g Na,low cholest Activity: No Restrictions, As Tolerated Follow Up/Referral: PCP 1 WEEK Discharge Statement: "Patient was advised to return to the ER or call 911 if any headaches, dizziness, shortness of breath, chest pain, abdominal pain, bleeding, fevers, or worsening of medical condition. Patient was counseled about treatment plan, medications, possible side effects, patientverbalized understanding. All questions were answered to the best of my ability. This discharge took greater then 30 minutes in planning, reviewing documentation, counseling the patient, and discussing with other team members." ASSESSMENT ASSESSMENT Hospital Course 74M BIBA w/ prior Hx of hip surgery in 2013 which may be associated to the c/c of ABD pain. Pt reports that he was eating a sandwich and immediately after the pt started to feel epigastric ABD pain which radiated up into the pt chest, causing CP. Pt notes that he did eat the sandwich yesterday on 05/21/24. EMS states that the pt complained of having a CARRINGTON and having soft stools. PMHx of AFIB, arthritis, CHF, COPD, High Lipids and HTN. SHx of Tonsillectomy. Upon evaluation, the patient reports mild abdominal distention with pain. The patient is concerned about his symptoms and would like to be further evaluated and treated. The patient will be admitted under hospitalist care to the medical-surgical unit. Denies chills, fever, N/V, SOB, CP or other associated symptoms, modifiers, or recent injuries at this time. Patient was admitted on May 22, 2024 for abdominal pain. Patient has a history of Dave-en-Y bypass. Patient was seen by gastroenterology as well as general surgery, infectious disease, and pulmonology. Patient had a long and complicated stay. Patient was briefly intubated in the ICU. Patient was seen by general surgery. Initially patient's ileus was thought to have cleared on its own. Patient's diet was advanced however he started having episodes of emesis. Patient also then developed elevated white blood cell count and fever. Upper endoscopy was canceled due to concern for possible ischemic bowel. Attempted to transfer patient to higher level of care however tertiary centers declined. Patient is status post exploratory laparotomy with bowel resection due to perforation irrigation and debridement. Patient was found to have sepsis with abscess and gastric bypass revision. Dr. Lorenz was assisted by Dr. Warren. Patient was briefly placed on the ventilator and was extubated successfully. Patient was very deconditioned he lives at home alone. Patient's diet was slowly advanced he was on TPN for several weeks. Patient then began working with physical therapy. Patient was still very weak only able to stand and transfer and take several steps. Due to his deconditioned state patient was [facility]. Patient completed his antibiotic course and he will continue physical therapy at [facility]. Patient was seen by cardiology. He was initially taken off anticoagulation for atrial fibrillation due to anemia. Patient received several units of blood. Patient also had thrombocytopenia most likely related to the surgery and sepsis. Patient's hemoglobin stabilized with no signs or symptoms of bleeding. Patient was then restarted on Eliquis and patient's hemoglobin was stable upon discharge. The patient received proper medical treatment and medications. Vital signs, Imaging and Laboratory Work was monitored daily. All consults recommendations were followed as provided. There were no complaints or new complaints upon discharge, all questions and concerns were answered. Patient was advised to return to the ER or call 911 if any headaches, dizziness, shortness of breath, chest pain, bleeding, fevers, or worsening of medical condition. Patient/Family was counseled about treatment plan, medications, possible side effects, patient verbalized understanding. All questions were answered to the best of my ability. The patient symptoms improved and they are okay to be DC. Assessment SBO, S/O EXPLLORATORY LAPAROTOMY, COLON RESECTION, LYSIS OF ADHESIONS, REVISION OF GASTRIC BYPASS TETO CRAMER NP Jun 24, 2024 14:49
[2024-06-24 17:00] VITALS: BP 142/62; PULSE 67; RESP 18; TEMP 97.8; O2SAT 96
--- NOTE | 2024-06-24 23:08 | DVHPN2 ---
Progress Note - Dictate Date Seen: Jun 24, 2024 Medical Necessity Reason Pt with a Central, PICC or Fol: No The following are medically ne: Central Line, Grewal Catheter Reason for grewal catheter: Strict I&O Subjective Patient seen and examined at bedside. On supplemental oxygen Overnight events reviewed. vital signs Vital Sign Date Time Temp Pulse Resp B/P (MAP) Pulse Ox O2 Delivery O2 Flow Rate FiO2 06/24/24 17:24 67 142/62 06/24/24 17:00 97.8 18 96 97.8 06/24/24 08:00 Nasal Cannula* 1 24 Total Intake and Output 06/23/24 06/23/24 06/24/24 15:00 23:00 07:00 Intake Total 1800 ml 160 ml Output Total 1600 ml 1000 ml Balance 200 ml -840 ml medications Current Medications Medications Dose Ordered Sig/Jason Route Start Time Stop Time Status Last Admin Dose Admin Metoprolol Tartrate 10 mg BID PO 06/03/24 22:00 UNV Metoprolol Tartrate 5 mg BID IV 06/11/24 13:45 UNV objective Gen.: Patient lying in bed in no apparent distress. On supplemental oxygen Head: Normocephalic, atraumatic Eyes: EOMI/PERRLA. Ears: Normal hearing. Normal anatomy. Neck/trachea: Trachea midline, supple. Nose: Normal external anatomy. Mouth: Moist mucous membranes. Chest: Decreased air entry bilaterally. No wheezing or rhonchi. Cardio vascular: Positive S1, positive S2. Regular rate and rhythm. Abdomen: Positive bowel sounds in all 4 quadrants. Soft, non-tender, non- distended. : Deferred. Rectal: Deferred Skin: Warm, dry. Extremities: 2+ radial pulses bilaterally. No lower extremity edema. Neuro: Awake, alert, oriented x3. No gross motor or sensory deficits. Cranial nerves II through XII intact. Gait not assessed. laboratory and microbiology Laboratory Tests 06/21/24 08:20 Test 06/21/24 08:20 Range/Units Serum Glucose 89 74-106 mg/dL Assessment/Plan Impression: Septic shock Acute hypoxic respiratory failure Acute kidney injury, resolved Small bowel obstruction, improving Atrial fibrillation Hx of gastric bypass (Dave-en-Y) Obesity, BMI 34.2 Atelectasis Events: On supplemental oxygen, 2 LPM NC Taper O2 as tolerated Continue antibiotics Incentive spirometry Pain control Avoid oversedation Continue Eliquis 5 mg BID Monitor hemoglobin Tube feeds for nutritional support. Advance diet as tolerated Head of bed elevation Aspiration precautions LR at 100 ml/hr for IV fluid hydration Wound care. GI prophylaxis w/ Protonix DVT prophylaxis - Eliquis Pending discharge, awaiting SNF placement Patient is s/p exploratory laparotomy with lysis of adhesions. Rest of plan as noted below. Plan: S/p central line placement. Needed for administration of pressors. S/p extubation. On supplemental oxygen, 2 LPM NC Taper O2 as tolerated Antibiotics GI recommendations appreciated. Monitor WBC Hemoglobin - monitor Monitor renal function. Monitor electrolytes. Supplement as necessary. Monitor ins and outs. Creatinine trending down. Diet and lifestyle modifications discussed Obesity - complicates all care. GI/DVT prophylaxis. Awaiting SNF placement Prognosis: Poor given patient's multiple co-morbidities. Rest of plan per hospitalist and other consultants. Thank you Makenzie Mcnamara NP, for allowing me to participate in this patient's care. Further recommendations will depend on the patient's clinical course. Please do not hesitate to contact me if you have any questions or concerns. This medical document was created using an electronic medical record system with [employer] dictation system. Although these documentations are being carefully reviewed, there may still be some phonetic and typographical changes. The errors are purely typographical, due to imperfection on the software program, and do not reflect any compromise in the patient's medical care Dietary Evaluation Review Comments: 1. advance diet as tolerated per MD 2. Consider EN/TPN if Pt remains NPO for 48 hours Expected Outcomes/Goals: 1. Pt will consume >75% estimated needs within 2-3 days Plan discussed with: Patient, Other (NIRAV Galalgher) PRISCILLA CORREA MD Jun 24, 2024 23:08
== END 2024-06-24 19:45 | DRG 853 ==
LOC: ER 09:28 → EDBD 09:28 → OVERFLOW 14:57 → EAST 18:12 → TELE-EAST 05-24 08:28 → TELE-CENTR 05-30 01:50 → DOU IN ICU 06-04 16:57 → ICU CENTRL 06-05 00:31 → ICU WEST 06-08 17:45 → TELE-EAST 06-15 22:35
PROVIDERS: ADMIT Nurse Practitioner Family; ATTEND Nurse Practitioner
PROC: 0QS704Z Reposition Left Upper Femur with Internal Fixation Device, Open Approach (ICD-10-PCS; 2024-05-27)
PROC: 02HV33Z Insertion of Infusion Device into Superior Vena Cava, Percutaneous Approach (ICD-10-PCS; 2024-06-06)
PROC: B548ZZA Ultrasonography of Superior Vena Cava, Guidance (ICD-10-PCS; 2024-06-06)
PROC: 0BH17EZ Insertion of Endotracheal Airway into Trachea, Via Natural or Artificial Opening (ICD-10-PCS; 2024-06-08)
PROC: 5A1955Z Respiratory Ventilation, Greater than 96 Consecutive Hours (ICD-10-PCS; 2024-06-08)
PROC: 0DB80ZZ Excision of Small Intestine, Open Approach (ICD-10-PCS; principal; 2024-06-08 12:11)
PROC: 0B9D8ZX Drainage of Right Middle Lung Lobe, Via Natural or Artificial Opening Endoscopic, Diagnostic (ICD-10-PCS; 2024-06-09)
PROC: 30233N1 Transfusion of Nonautologous Red Blood Cells into Peripheral Vein, Percutaneous Approach (ICD-10-PCS; 2024-06-11)
DX: A41.9 Sepsis, unspecified organism (principal); J96.01 Acute respiratory failure with hypoxia; S72.142A Displaced intertrochanteric fracture of left femur, initial encounter for closed fracture; R65.21 Severe sepsis with septic shock; K63.1 Perforation of intestine (nontraumatic); K65.1 Peritoneal abscess; K56.50 Intestinal adhesions [bands], unspecified as to partial versus complete obstruction; I47.10 Supraventricular tachycardia, unspecified; I48.19 Other persistent atrial fibrillation; N17.9 Acute kidney failure, unspecified; E87.20 Acidosis, unspecified; K31.1 Adult hypertrophic pyloric stenosis; I50.32 Chronic diastolic (congestive) heart failure; J98.11 Atelectasis; K56.7 Ileus, unspecified; K52.9 Noninfective gastroenteritis and colitis, unspecified; E66.01 Morbid (severe) obesity due to excess calories; E78.5 Hyperlipidemia, unspecified; J44.9 Chronic obstructive pulmonary disease, unspecified; K80.20 Calculus of gallbladder without cholecystitis without obstruction; E87.6 Hypokalemia; D64.9 Anemia, unspecified; E83.42 Hypomagnesemia; N40.1 Benign prostatic hyperplasia with lower urinary tract symptoms; E86.0 Dehydration; N20.0 Calculus of kidney; R33.9 Retention of urine, unspecified; E11.9 Type 2 diabetes mellitus without complications; I35.1 Nonrheumatic aortic (valve) insufficiency; I08.3 Combined rheumatic disorders of mitral, aortic and tricuspid valves; D69.59 Other secondary thrombocytopenia; I11.0 Hypertensive heart disease with heart failure; E86.1 Hypovolemia; Z68.34 Body mass index [BMI] 34.0-34.9, adult; Z98.84 Bariatric surgery status; Z91.199 Patient's noncompliance with other medical treatment and regimen due to unspecified reason; Z88.6 Allergy status to analgesic agent; Z79.899 Other long term (current) drug therapy; Z79.01 Long term (current) use of anticoagulants; Z96.641 Presence of right artificial hip joint; Z85.038 Personal history of other malignant neoplasm of large intestine; Z82.49 Family history of ischemic heart disease and other diseases of the circulatory system; Z82.3 Family history of stroke; Z82.0 Family history of epilepsy and other diseases of the nervous system; Z81.8 Family history of other mental and behavioral disorders; Z80.8 Family history of malignant neoplasm of other organs or systems; Z80.42 Family history of malignant neoplasm of prostate; Z82.5 Family history of asthma and other chronic lower respiratory diseases; Z80.3 Family history of malignant neoplasm of breast; Z80.0 Family history of malignant neoplasm of digestive organs; Z82.62 Family history of osteoporosis; Z83.3 Family history of diabetes mellitus; Z80.1 Family history of malignant neoplasm of trachea, bronchus and lung; W18.39XA Other fall on same level, initial encounter; Y93.89 Activity, other specified; Y92.238 Other place in hospital as the place of occurrence of the external cause; Y99.8 Other external cause status
CPT/HCPCS: 31624; 36415; 36600; 71045; 73501; 73502; 74018; 74021; 74176; 74250; 76000; 76705; 76775; 78226; 80048; 80053; 80061; 80202; 81001; 82270; 82306; 82570; 82607; 82728; 82746; 82805; 82962; 83036; 83540; 83550; 83605; 83735; 83880; 83935; 83970; 84100; 84156; 84300; 84443; 84478; 84484; 85007; 85014; 85018; 85025; 85027; 85610; 85730; 86803; 86850; 86900; 86901; 86920; 87070; 87075; 87077; 87081; 87177; 87186; 87205; 87340; 92507; 92610; 93005; 93306; 94002; 94003; 97110; 97116; 97163; 97530; A4565; G0378; J0131; J0153; J0690; J1815; J2250; J2405; J2470; J2543; J2704; J3480; J3490; J7131; P9047

== ENCOUNTER 2025-08-18 05:55 | Inpatient (IN) | payer MEDICARE ==
[~2025-08-18] VITALS: Ht 170.2 cm; Wt 78.6 kg
[~2025-08-18 05:55] MED LIST changes: +ALLO300T2 PO; +ATOR20TA PO; +CETI10TA2 PO; +DILT60TA PO; +DOCU-94 PO; +DULO60CA41 PO; +OMEP20TA PO; +PSEU120T46 PO; +TAMS0.4C39 PO
--- NOTE | 2025-08-18 06:52 | ED.PDOC ---
GI ASSESSMENT HPI Comments 75 year old male with PMHx a-fib, arthritis, CHD, COPD, HLD, HTN presents to the ED via EMS with a chief complaint of abdominal pain onset 4 days. Patient has been experiencing diffused abdominal pain as well as constipation for the past 4 days, had a small bowel movement 4 days ago, small bowel movement last night. He is usually on 2L home O2, noticed constipation is causing shortness of breath. He was admitted at [facility] May 2024 due to similar symptoms, states he had a small bowel obstruction. Denies fever, chills, nausea, vomiting, melena, blood in stool, dizziness, headache, chest pain, hematemesis. No other symptoms or modifying factors present at this time. Chief Complaint: Abdominal Pain Time Seen by MD: 06:30 Primary Care Provider: JOHANNE Reviewed Notes: Medications, Allergies Allergies: Coded Allergies: Amiodarone (Verified Allergy, Unknown, 08/11/20) Diphenhydramine (Verified Allergy, Unknown, 08/11/20) Furosemide (Verified Allergy, Unknown, 08/11/20) Ibuprofen (Verified Allergy, Unknown, 08/11/20) Naproxen (Verified Allergy, Unknown, 08/11/20) Sulfa Drugs (Verified Allergy, Unknown, 08/11/20) Home Meds Active Scripts Prednisone (Prednisone) 20 Mg Tab, 60 MG PO DAILY for 3 Days, #9 MG Prov:REILLY REYES DO 12/13/21 Apixaban Base (ELIQUIS) 5 Mg Tab, 5 MG PO BID, #60 TAB Prov:JUANY ROBERTS MD 02/07/20 Metoprolol Tartrate (Lopressor) 25 Mg Tb, 12.5 MG PO BID, #30 TAB Check blood pressure and pulse prior to dose. Hold medication if systolic blood pressure is below 120 or pulse less than 70 Prov:JUANY ROBERTS MD 02/07/20 Reported Medications Allopurinol (Allopurinol) 300 Mg Tab, 300 MG PO Q12HR for 30 Days, MG 05/23/24 Duloxetine Hcl (Cymbalta) 60 Mg Cap, 1 CAP PO DAILY, #90 CAP 3 Refills 05/23/24 Omeprazole (Gnp Omeprazole) 20 Mg Tab, 1 TAB PO DAILY, #90 TAB 1 Refill 05/23/24 Tamsulosin Hcl (Tamsulosin Hcl) 0.4 Mg Cap, 0.4 MG PO QPM for 30 Days, MG 05/23/24 Diltiazem Hcl (Diltiazem Hcl) 60 Mg Tab, 60 MG PO BID for 30 Days, MG 05/23/24 Atorvastatin Calcium (Lipitor) 20 Mg Tab, 1 TAB PO DAILY, #90 TAB 1 Refill 05/23/24 Docusate Sodium (Colace) 100 Mg Cap, 1 CAP PO BID, #30 CAP 05/23/24 Pseudoephedrine HCl ([facility] 12 Hour Nasal [place]) 120 Mg Tab, 60 MG PO BID, TAB 05/23/24 Cetirizine Hcl (Kls Aller-Maria Teresa) 10 Mg Tab, 1 TAB PO DAILY, #30 TAB 3 Refills 05/23/24 Metoprolol Tartrate (Metoprolol Tartrate) 25 Mg Tab, 10 MG PO BID for 30 Days, MG 02/21/20 Lisinopril (Lisinopril) 10 Mg Tab, 10 MG PO BID for 30 Days, MG 02/21/20 Diazepam (Diazepam) 10 Mg Tab, 30 MG PO BID, TAB 02/21/20 Hydrochlorothiazide (Hydrochlorothiazide) 12.5 Mg Cap, 12.5 MG PO DAILY for 30 Days, MG 02/21/20 Nortriptyline Hcl (PAMELOR CAPSULE) 25 Mg Cp, 50 MG PO HS, CP 03/27/14 Allopurinol (Zyloprim) 100 Mg Tab 01/24/13 Omeprazole (Sm Omeprazole) 20 Mg Tab, 40 MG PO DAILY 01/24/13 Docusate Calcium (Sb Stool Softener) 240 Mg Cap, PO 01/24/13 Nitroglycerin (Nitroglycerin) 0.4 Mg Sl, DAILYP 01/24/13 Trazodone Hcl (Trazodone Hcl) 100 Mg Tab, PO HS 01/24/13 Atorvastatin Calcium (ATORVASTATIN CALCIUM) 40 Mg Tab, PO HS 01/24/13 Senna (Sennosides) 8.6 Mg Tab, PO DAILYP 01/24/13 Potassium Chloride (K-Tabs) 10 Meq Tab, PO DAILY 01/24/13 Multiple Vitamin (Mvi Tab) 1 Tab Tb 01/13/12 Cardwell-3 Fatty Acids (Fish Oil) 1,000 Mg Cap 01/13/12 Epinephrine Hcl (Anaphylaxis) (Epipen) 0.3 Mg Inj 01/13/12 Citalopram Hydrobromide (Citalopram Hydrobromide) 20 Mg Tab 01/13/12 Cholecalciferol (D 400) 400 Unit Chw 01/13/12 Albuterol Sulfate (Albuterol Sulfate) 0.5 % Neb 01/13/12 Information Source: Patient, Emergency Med Personnel Mode of Arrival: EMS Timing: Days Duration: Since onset Prehospital treatment: None Quality: Sharp Vomitus: None Severity: Moderate Recent: None Recent Hx of: None Pain Location: Diffuse Modifying Factors: Nothing Associated sign and symptoms: Constipation, Abdominal Pain Past Medical History PAST MEDICAL HISTORY: AFIB, Arthritis, CHF, COPD, High Lipids, HTN Surgical History: Tonsillectomy Family History Family History: Reviewed,noncontributory to illness, Unknown Social History Smoker: Non-Smoker Alcohol: Denies ETOH Use Drugs: Denies Drug Use Lives In: Home Constitutional: denies: chills, diaphoresis, fatigue, fever, malaise, sweats, weakness, others EENTM: denies: blurred vision, double vision, ear bleeding, ear discharge, ear drainage, ear pain, ear ringing, eye pain, eye redness, hearing loss, mouth pain, mouth swelling, nasal discharge, nose bleeding, nose congestion, nose pain, photophobia, tearing, throat pain, throat swelling, voice changes, others Respiratory: reports: shortness of breath; denies: cough, hemoptysis, orthopnea, SOB at rest, SOB with excertion, stridor, wheezing, others Cardiovascular: denies: chest pain, dizzy spells, diaphoresis, Dyspnea on exertion, edema, irregular heart beat, left arm pain, lightheadedness, palpitations, PND, syncope, others Gastrointestinal: reports: abdomen distended, abdominal pain, constipated; denies: blood streaked bowels, diarrhea, dysphagia, difficulty swallowing, hematemesis, melena, nausea, poor appetite, poor fluid intake, rectal bleeding, rectal pain, vomiting, others Genitourinary: denies: burning, dysuria, flank pain, frequency, hematuria, incontinence, penile discharge, penile sore, pain, testicle pain, testicle swelling, urgency, others Neurological: denies: dizziness, fainting, headache, left sided numbness, left sided weakness, numbness, paresthesia, pre-existing deficit, right sided numbness, right sided weakness, seizure, speech problems, tingling, tremors, weakness, others Musculoskeletal: denies: back pain, gout, joint pain, joint swelling, muscle pain, muscle stiffness, neck pain, others Integumetry: denies: bruises, change in color, change in hair/nails, dryness, laceration, lesions, lumps, rash, wounds, others Allergic/Immunocompromised: denies: Difficulty Healing, Frequent Infections, Hives, Itching, others Hematologic/Lymphatic: denies: anemia, blood clots, easy bleeding, easy bruising, swollen glands, others Endocrine: denies: excessive hunger, excessive sweating, excessive thirst, excessive urination, flushing, intolerance to cold, intolerance to heat, unexplained weight gain, unexplained weight loss, others Psychiatric: denies: anxiety, bipolar disorder, depression, hopeless, panic disorder, schizophrenia, sleepless, suicidal, others All Other Systems: Reviewed and Negative Physical Exam General Appearance: Normal HEENT: Normal ENT Inspection, Pharynx Normal, TMs Normal Neck: Full Range of Motion, Non-Tender, Normal, Normal Inspection Respiratory: Chest Non-Tender, Lungs Clear, No Accessory Muscle Use, No Respiratory Distress, Normal Breath Sounds Cardiovascular: No Edema, No JVD, No Murmur, No Gallop, Normal Peripheral Pulses, Regular Rate/Rhythm Breast Exam: Deferred Gastrointestinal: No Organomegaly, Non Tender, No Pulsatile Mass, Normal Bowel Sounds, Soft Genitalia: Deferred Pelvic: Deferred Rectal: Deferred Extremities: No calf tenderness, Normal capillary refill, Normal inspection, Normal range of motion, Non-tender, No pedal edema Musculoskeletal : Apperance: Normal Neurologic: Alert, hand edge bander II-XII nml as Tested, No Motor Deficits, Normal Affect, Normal Mood, No Sensory Deficits Cerebellar Function: Normal Reflexes: Normal Skin: Dry, Normal Color, Warm Lymphatic: No Adenopathy Was a procedure done? Was a procedure done?: No GI differential Dx Differential Diagnosis: Bowel Obstruction, Constipation, Impaction X-Ray, Labs, Meds, VS Vital Signs Date Time Temp Pulse Resp B/P (MAP) Pulse Ox O2 Delivery O2 Flow Rate FiO2 08/18/25 06:16 98.8 90 16 157/89 98 98.8 08/18/25 05:57 92 Time of 1ST Reevaluation: 07:00 Reevaluation 1ST: Unchanged Patient Education/Counseling: Diagnosis, Treatment, Prognosis Family Education/Counseling: No Family Present SEPSIS Sepsis Screen Date sepsis recognized/suspect: Aug 18, 2025 Time Sepsis recognized/suspect: 618 Recent Procedure: No On Antibiotic Therapy: No Respiratory Rate >20: No Heart Rate >90: No Temp<36 C (96.8 F) or >38.3 C: No SBP <90 or MAP <65 mmHG: No New Acute Mental Status Change: No Is the patient on CPAP, BIPAP,: No Physician Orders Electrocardigram (08/18/25 06:00) Vital Signs Date Time Temp Pulse Resp B/P (MAP) Pulse Ox O2 Delivery O2 Flow Rate FiO2 08/18/25 06:16 98.8 90 16 157/89 98 98.8 08/18/25 05:57 92 Critical Care Note Critical Care Time?: No Stability Stability form required: No Heart Score Heart Score: Heart Score Response (Comments) Value History N/A 0 EKG N/A 0 Age N/A 0 Risk Factors N/A 0 Troponin N/A 0 Total 0 I personally scribed for LUIS OTT MD ([email or web address]) on 08/18/25 at 06:52. Electronically submitted by Kathryn Ogden ([email or web address]). LUIS OTT MD Aug 18, 2025 06:52
[2025-08-18 07:16] LABS: Hematocrit 37.4 % (41.0-53.0); Hemoglobin 11.9 g/dL (13.5-17.5); Mean Corpuscular Hemoglobin 24.5 pg (28.0-32.0); Mean Corpuscular Volume 76.9 fL (80.0-100.0); Nucleated Red Blood Cells % 0.1 %
[2025-08-18 07:22] LABS: Anion Gap 9 (5-15); Calcium 10.2 mg/dL (8.7-10.4)
[2025-08-18 07:27] LABS: BUN/Creatinine Ratio 14.4 (10.0-20.0); Blood Urea Nitrogen 19 mg/dL (9-23); Carbon Dioxide 33 mmol/L (20-31); Chloride 93 mmol/L (98-107); Glucose 121 mg/dL (74-106); Potassium 5.2 mmol/L (3.5-5.1); Sodium 135 mmol/L (136-145)
--- NOTE | 2025-08-18 08:57 | DVHHP2 ---
Admitting Diagnosis: abd pain History of Present Illness 75 year old male with PMHx a-fib, arthritis, CHD, COPD, HLD, HTN presents to the ED for abdominal pain onset 4 days. Patient has been experiencing diffused abdominal pain as well as constipation for the past 4 days. While in the emergency department the patient was evaluated by the provider, As per provider: Labs, vital signs, and imagining monitored. Patient will be admitted for further evaluation and treatment. I discussed admission with the patient/family and is in agreement to treatment plan. Patient Family History: Alcoholism Cancer Cancer of colon Family history: Arthritis Family history: Asthma Family history: Blood disorder Family history: Cardiovascular disease Family history: Depression (situation) Family history: Diabetes mellitus Family history: Glaucoma Family history: Hypercholesterolemia (situation) Family history: Hypertension Family history: Thyroid disorder Malignant melanoma Malignant neoplasm of ovary Seizure disorder (situation) Stroke No Family History of: Family history: Alzheimer's disease Family history: Congenital anomaly Family history: Coronary thrombosis Family history: Diabetes in Family history: Osteoporosis Family history: Suicide (situation) Ischemic heart disease Malignant neoplasm of breast Malignant neoplasm of lung Prostate cancer Renal stone Allergies: Coded Allergies: Amiodarone (Verified Allergy, Unknown, 08/11/20) Diphenhydramine (Verified Allergy, Unknown, 08/11/20) Furosemide (Verified Allergy, Unknown, 08/11/20) Ibuprofen (Verified Allergy, Unknown, 08/11/20) Naproxen (Verified Allergy, Unknown, 08/11/20) Sulfa Drugs (Verified Allergy, Unknown, 08/11/20) Home Meds Active Scripts Prednisone (Prednisone) 20 Mg Tab, 60 MG PO DAILY for 3 Days, #9 MG Prov:REILLY REYES DO 12/13/21 Apixaban Base (ELIQUIS) 5 Mg Tab, 5 MG PO BID, #60 TAB Prov:JUANY ROBERTS MD 02/07/20 Metoprolol Tartrate (Lopressor) 25 Mg Tb, 12.5 MG PO BID, #30 TAB Check blood pressure and pulse prior to dose. Hold medication if systolic blood pressure is below 120 or pulse less than 70 Prov:JUANY ROBERTS MD 02/07/20 Reported Medications Ciprofloxacin Hcl (Cipro) 500 Mg Tab, 500 MG PO BID 08/18/25 Acetaminophen (Acetaminophen) 325 Mg Tab, 500 MG PO Q8HPRN PRN for MILD PAIN for 30 Days, MG 0 Refills 08/18/25 Allopurinol (Allopurinol) 300 Mg Tab, 300 MG PO DAILY for 30 Days, MG 05/23/24 Duloxetine Hcl (Cymbalta) 60 Mg Cap, 1 CAP PO DAILY, #90 CAP 3 Refills 05/23/24 Tamsulosin Hcl (Tamsulosin Hcl) 0.4 Mg Cap, 0.4 MG PO QPM for 30 Days, MG 05/23/24 Diltiazem Hcl (Diltiazem Hcl) 60 Mg Tab, 120 MG PO DAILY for 30 Days, MG 05/23/24 Atorvastatin Calcium (Lipitor) 20 Mg Tab, 1 TAB PO DAILY, #90 TAB 1 Refill 05/23/24 Docusate Sodium (Colace) 100 Mg Cap, 1 CAP PO BID, #30 CAP 05/23/24 Pseudoephedrine HCl ([facility] 12 Hour Nasal [place]) 120 Mg Tab, 60 MG PO BID, TAB 05/23/24 Cetirizine Hcl (Kls [place]) 10 Mg Tab, 1 TAB PO DAILY, #30 TAB 3 Refills 05/23/24 Lisinopril (Lisinopril) 10 Mg Tab, 5 MG PO DAILY for 30 Days, MG 02/21/20 Hydrochlorothiazide (Hydrochlorothiazide) 12.5 Mg Cap, 12.5 MG PO DAILY for 30 Days, MG 02/21/20 Nortriptyline Hcl (PAMELOR CAPSULE) 25 Mg Cp, 50 MG PO BID, CP 03/27/14 Omeprazole (Sm Omeprazole) 20 Mg Tab, 40 MG PO DAILY 01/24/13 Nitroglycerin (Nitroglycerin) 0.4 Mg Sl, DAILYP 01/24/13 Trazodone Hcl (Trazodone Hcl) 100 Mg Tab, PO HS 01/24/13 Senna (Sennosides) 8.6 Mg Tab, PO DAILYP 01/24/13 Potassium Chloride (K-Tabs) 10 Meq Tab, 30 PO BID 01/24/13 Multiple Vitamin (Mvi Tab) 1 Tab Tb 01/13/12 [place]-3 Fatty Acids (Fish Oil) 1,000 Mg Cap 01/13/12 Epinephrine Hcl (Anaphylaxis) (Epipen) 0.3 Mg Inj 01/13/12 Citalopram Hydrobromide (Citalopram Hydrobromide) 20 Mg Tab 01/13/12 Cholecalciferol (D 400) 400 Unit Chw 01/13/12 Albuterol Sulfate (Albuterol Sulfate) 0.5 % Neb 01/13/12 Discontinued Reported Medications Omeprazole (Gnp Omeprazole) 20 Mg Tab, 1 TAB PO DAILY, #90 TAB 1 Refill 05/23/24 Metoprolol Tartrate (Metoprolol Tartrate) 25 Mg Tab, 10 MG PO BID for 30 Days, MG 02/21/20 Diazepam (Diazepam) 10 Mg Tab, 30 MG PO BID, TAB 02/21/20 Allopurinol (Zyloprim) 100 Mg Tab 01/24/13 Docusate Calcium (Sb Stool Softener) 240 Mg Cap, PO 01/24/13 Atorvastatin Calcium (ATORVASTATIN CALCIUM) 40 Mg Tab, PO HS 01/24/13 Current Medications Current Medications Medications (Trade) Dose Ordered Sig/Jason Route PRN Reason Start Time Stop Time Status Last Admin Acetaminophen/ Hydrocodone Bitart ([place] 5/325MG Tab) 1 tab Q4HP PRN PO MODERATE PAIN (4-6 PAIN SCALE) 08/18/25 09:00 Ondansetron HCl (Zofran) 4 mg Q4HP PRN IV NAUSEA / VOMITING 08/18/25 09:00 Docusate Sodium (Colace Capsule) 100 mg BIDPRN PRN PO FOR CONSTIPATION 08/18/25 09:00 08/18/25 10:23 Enoxaparin Sodium (Lovenox) 40 mg DAILY SC 08/18/25 10:00 08/18/25 11:41 DC 08/18/25 09:59 Acetaminophen (Tylenol Tablet) 650 mg Q6HP PRN PO PAIN SCALE 1-3 OR TEMP>100.4 08/18/25 09:00 08/18/25 10:34 Hydralazine HCl (Apresoline Injection) 10 mg Q6HP PRN IV SBP>150 08/18/25 11:45 Enoxaparin Sodium (Lovenox) 80 mg Q12HR SC 08/18/25 22:00 08/18/25 17:44 DC Pantoprazole Sodium (Protonix) 40 mg DAILY IV 08/18/25 11:45 08/18/25 11:45 Dextrose/Lactated Ringer's 1,000 ml @ 75 mls/hr [id number] IV 08/18/25 11:45 08/18/25 17:44 DC 08/18/25 11:45 Ipratropium [place] (Atrovent Medneb) 0.5 mg Q4HPRN PRN NEB SHORTNESS OF BREATH 08/18/25 11:45 Sodium Chloride 1,000 ml @ 125 mls/hr Q8H IV 08/18/25 17:45 Review of Systems Constitutional: denies chills, denies fever, denies malaise Eyes: denies eye pain, denies vision change ENT: denies ear pain, denies headache, denies nasal congestion, denies painful swallowing, denies voice change Cardiovascular: denies chest pain, denies edema, denies orthopnea, denies palpitations, denies paroxysmal nocturnal dyspnea Respiratory: denies cough, denies shortness of breath Gastrointestinal: denies constipation, denies diarrhea, denies nausea, denies vomiting Genitourinary: denies dysuria, denies frequent urination, denies urethral discharge Musculoskeletal: denies back pain, denies joint pain, denies muscle pain Skin: denies bruising, denies itching, denies rash Neurological: denies focal weakness, denies headache, denies sensory changes Psychiatric: denies anxiety, denies depression Endocrine: denies polydipsia, denies polyuria Hematologic/Lymphatic: denies easy bleeding, denies easy bruising, denies enlarged lymph nodes Allergic/Immunologic: denies allergy, denies hives Vital Signs Vital Signs Date Time Temp Pulse Resp B/P (MAP) Pulse Ox O2 Delivery O2 Flow Rate FiO2 08/18/25 17:00 98.8 92 18 140/83 (102) 92 98.8 08/18/25 13:51 3.0 08/18/25 13:20 Nasal Cannula* 32 Physical Exam General Appearance: alert, no distress HEENT: EOMI, PERRLA, normal external inspect of ears, no icterus, no nasal drainage Neck: no carotid bruit, no jugular venous distention (JVD), no lymphadenopathy Chest: normal thorax Respiratory: clear to auscultation, normal air movement Cardiovascular: regular rate and rhythm, no diastolic murmur, no jugular venous distention (JVD), no rub, no systolic murmur Abdominal: soft, no hepatomegaly, no mass, no splenomegaly, no tenderness Genitourinary: grossly normal external Musculoskeletal: no joint tenderness, no swelling Extremities: normal pulses, no calf tenderness, no clubbing, no cyanosis, no edema Skin: no bruising, no jaundice, no rash Neurological: alert, No focal deficit SEPSIS Sepsis Screen Date sepsis recognized/suspect: Aug 18, 2025 Time Sepsis recognized/suspect: 618 Recent Procedure: No On Antibiotic Therapy: No Respiratory Rate >20: No Heart Rate >90: No Temp<36 C (96.8 F) or >38.3 C: No SBP <90 or MAP <65 mmHG: No New Acute Mental Status Change: No Is the patient on CPAP, BIPAP,: No Physician Orders Electrocardigram (08/18/25 06:00) Ct Ab Pel With Iv Con Only (08/18/25 06:46) Admit (08/18/25 08:54) Code Status (08/18/25 08:54) Hydrocodone-Acet 5/325mg Tab ([place] 5/32 (08/18/25 09:00) Ondansetron Hcl (Zofran) (08/18/25 09:00) Docusate Sodium Capsule (Colace Capsule) (08/18/25 09:00) Complete Blood Count (08/19/25 04:00) Comprehensive Metabolic Panel (08/19/25 04:00) Condition: Fair (08/18/25 08:54) Acetaminophen Tablet (Tylenol Tablet) (08/18/25 09:00) Sequential Compression Device (08/18/25 ) * Gi D[facility] [employer] Head (08/18/25 08:57) * Surgical Consult (08/18/25 ) Npo (Nothing By Mouth) Diet (08/18/25 Lunch) Ng To Lis (08/18/25 10:57) Chest Portable (08/18/25 11:06) Hydralazine Injection (Apresoline Inject (08/18/25 11:45) Pantoprazole (Protonix) (08/18/25 11:45) Gallbladder (08/18/25 11:43) Echo 2d Mode Cardiac Dop (08/18/25 11:43) Ipratropium Medneb (Atrovent Medneb) (08/18/25 11:45) PTPTT (08/19/25 04:00) Lipase (08/19/25 04:00) * Cardiology Consult (08/18/25 17:33) Sodium Chloride 0.9% (08/18/25 17:45) Type And Screen (08/19/25 04:00) Chest Xray 1 View (08/18/25 17:50) Chest Xray 1 View (08/18/25 20:41) Chest Xray 1 View (08/18/25 20:54) Vital Signs Date Time Temp Pulse Resp B/P (MAP) Pulse Ox O2 Delivery O2 Flow Rate FiO2 08/18/25 17:00 98.8 92 18 140/83 (102) 92 98.8 08/18/25 13:51 98.0 95 18 124/71 98 3.0 98.0 08/18/25 13:20 98 Nasal Cannula* 3 32 08/18/25 13:20 98 Nasal Cannula 3.0 08/18/25 12:16 97.8 08/18/25 10:02 98.0 95 18 124/71 (88) 98 98.0 08/18/25 10:00 Nasal Cannula* 3 32 08/18/25 09:00 98.3 100 18 111/62 (78) 98 98.3 08/18/25 06:16 98.8 90 16 157/89 98 98.8 08/18/25 05:57 92 Laboratory Tests Test 08/18/25 07:03 White Blood Count 5.8 10^3/uL (4.4-10.8) Medications Medications Dose Ordered Sig/Jason Route Start Time Stop Time Status Last Admin Dose Admin Dextrose/Lactated Ringer's 1,000 ml @ 75 mls/hr [id number] IV 08/18/25 11:45 08/18/25 17:44 DC 08/18/25 11:45 Enoxaparin Sodium 40 mg DAILY SC 08/18/25 10:00 08/18/25 11:41 DC 08/18/25 09:59 Pantoprazole Sodium 40 mg DAILY IV 08/18/25 11:45 08/18/25 11:45 Results Labs Test 08/18/25 08:28 08/18/25 07:03 Range/Units Urine Color Yellow Yellow Urine Clarity Turbid H Clear Urine pH 5.5 5.0-9.0 Urine Specific [place] 1.026 1.001-1.035 Urine Protein Trace H Negative Urine Ketones Negative Negative Urine Blood 3+ H Negative /uL Urine Nitrite Negative Negative Urine Bilirubin Negative Negative Urine Urobilinogen Normal Negative mg/dL Urine Leukocyte Esterase 1+ Negative /uL Urine RBC 602 0 - 3 /hpf Urine Microscopic WBC 12 H 0-3 /HPF Urine Squamous Epithelial Cells Few <5 /hpf Urine Bacteria Few H None Seen /hpf Urine Hyaline Casts Mod 0 - 2 /lpf Urine Mucus Few None Seen Urine Glucose Normal Normal mg/dL White Blood Count 5.8 4.4-10.8 10^3/uL Red Blood Count 4.86 4.5-5.90 10^6/uL Hemoglobin 11.9 L 13.5-17.5 g/dL Hematocrit 37.4 L 41.0-53.0 % Mean Corpuscular Volume 76.9 L 80.0-100.0 fL Mean Corpuscular Hemoglobin 24.5 L 28.0-32.0 pg Mean Corpuscular Hemoglobin Concent 31.8 L 32.0-36.0 g/dL Red Cell Distribution Width 22.6 H 11.8-14.3 % Platelet Count 263 140-450 10^3/uL Mean Platelet Volume 7.9 6.9-10.8 fL Neutrophils (%) (Auto) 71.9 37.0-80.0 % Lymphocytes (%) (Auto) 16.2 10.0-50.0 % Monocytes (%) (Auto) 9.9 0.0-12.0 % Eosinophils (%) (Auto) 1.2 0.0-7.0 % Basophils (%) (Auto) 0.8 0.0-2.0 % Neutrophils # (Auto) 4.2 1.6-8.6 10 ^3/uL Lymphocytes # (Auto) 0.9 0.4-5.4 10 ^3/uL Monocytes # (Auto) 0.6 0-1.3 10 ^3/uL Eosinophils # (Auto) 0.1 0-0.8 10 ^3/uL Basophils # (Auto) 0 0-0.2 10 ^3/uL Nucleated Red Blood Cells 0.1 % Sodium Level 135 L 136-145 mmol/L Potassium Level 5.2 H 3.5-5.1 mmol/L Chloride Level 93 L 98-107 mmol/L Carbon Dioxide Level 33 H 20-31 mmol/L Anion Gap 9 5-15 Blood Urea Nitrogen 19 9-23 mg/dL Creatinine 1.32 H 0.700-1.30 mg/dL Glomerular Filtration Rate Calc 57 >90 mL/min BUN/Creatinine Ratio 14.4 10.0-20.0 Serum Glucose 121 H 74-106 mg/dL Calcium Level 10.2 8.7-10.4 mg/dL Plan 1. Abdominal pain related to volvulus and high grade small bowel obstruction Monitor, GI consult, surgical consult, IV fluids, PPI 2.HLD Monitor 3.COPD Monitor, supplemental O2, prn med neb tx 4.Chronic hypoxic respiratory failure (normally on home O2 at 2L NC) Monitor, supplemental O2 5.Paroxysmal atrial fibrillation Monitor, full dose lovenox 6.Chronic anticoagulation with eliquis Monitor Plan discussed with: Patient, Other TETO CRAMER NP Aug 18, 2025 08:57
[2025-08-18] MEDS ORDERED: ONDANSETRON HCL 4 MG/2 ML VIAL IV PRN (09:00)
[2025-08-18] MEDS ORDERED: HYDROcodone-ACET 5/325MG TAB PO PRN (09:00)
[2025-08-18 09:16] LABS: Urine Protein, UAD TRACE (Negative)
[2025-08-18] MEDS: IOHEXOL 300 MG/ML 100ML BOTTLE IJ ONE (09:20)
[2025-08-18] MEDS: ENOXAPARIN SOD 40 MG/0.4 ML SYRINGE SC SCH (09:59)
[2025-08-18 10:02] VITALS: BP 124/71; PULSE 95; RESP 18; TEMP 98; O2SAT 98
[2025-08-18] MEDS: DOCUSATE SOD 100 MG CAP PO PRN (10:23)
--- NOTE | 2025-08-18 10:33 | DVH ---
CLINICAL INFORMATION: Abdominal pain. TECHNIQUE: Axial CT images of the abdomen and pelvis were obtained after the uneventful administration of 100 mL Omnipaque 300 IV contrast. Coronal and sagittal reformatted images were obtained, reviewed, and stored. All CT scans at this medical facility are performed using dose modulation techniques as appropriate to a performed exam including the following: Automated exposure control was utilized; adjustment of the MA and/or KV according to patient size; and use of iterative reconstruction technique. CTDIvol = 22.93 mGy DLP = 1605.65 mGy-cm COMPARISON: XY ABDOMEN 2 VIEW on DOS: 06/17/24, XY KUB ABDOMEN SINGLE VIEW on DOS: 06/12/24, XY KUB ABDOMEN SINGLE VIEW on DOS: 06/07/24 FINDINGS: Examination is limited due to motion artifact, distended loops of bowel obscuring visualization of adjacent structures, and prominent beam hardening artifact from the bilateral hip/proximal femoral surgical hardware, and beam hardening artifact from the patient being scanned with arms at sides. Lung bases: Atelectasis in the lung bases. Liver: Hepatic steatosis. Biliary: Hydropic gallbladder measuring up to 12.9 x 6.1 cm with calcified gallstone visualized. Spleen: Unremarkable. Pancreas: Pancreas is atrophic and poorly visualized due to motion artifact and distended bowel loops obscuring visualization. Adrenal glands: Grossly unremarkable. Kidneys: No hydronephrosis. Kidneys are small in size bilaterally. Small cyst in the posterior aspect of the left kidney. Multiple nonobstructing renal calculi bilaterally. Aorta/Vascular: Dense atherosclerotic calcification. No abdominal aortic aneurysm. Lymph Nodes: No lymphadenopathy visualized given the limitations of the examination. Bowel/mesentery: Very difficult to follow the large and small bowel due to bowel distention and motion artifact. Dilated fluid-filled small bowel loops are seen throughout most of the abdomen and pelvis. No the ileocecal junction is visualized with a normal to slightly distended terminal ileum. The right colon is dilated from the level of the cecum to the hepatic flexure, where there appears to be transition to nondilated more distal portions of the colon. There is twisting /swirling of the mesentery in this location at the site of obstruction suggesting volvulus. Appendix is not visualized. No free air or free fluid visualized given the limitations of the examination. Pelvic organs: Not well-visualized. Bladder: Grossly unremarkable, poorly visualized. Abdominal wall: Mild anasarca. Bones: Compression fracture of the L1 vertebral body with up to 30% loss of height at its superior endplate, appears chronic. Postsurgical changes of right total hip arthroplasty and open reduction internal fixation of the left proximal femur with associated beam hardening artifact which limits evaluation of adjacent structures. IMPRESSION: 1. Limited examination due to the reasons described above. 2. There is obstruction at the level of the hepatic flexure of the colon, with swirling of the mesentery consistent with volvulus. 3. Hydropic appearing gallbladder with gallstone visualized in the gallbladder. Acute cholecystitis not excluded. Correlate with clinical findings. Ultrasound could be considered to further characterize. 4. Hepatic steatosis. 5. Chronic appearing L1 vertebral body compression fracture. Correlate with clinical findings. 6. Additional findings as detailed above. Critical findings Critical Result: Colonic obstruction due to volvulus as detailed above. Findings discussed with NIRAV Khan, involved in the care team taking care of the patient, at 08/18/2025 12:28 PM [employer], and acknowledged receipt and understanding of the findings and will notify the physician taking care of the patient regarding the findings. ..
[2025-08-18] MEDS: ACETAMINOPHEN 325 MG TAB PO PRN (10:34)
[2025-08-18] MEDS: D5W/LACTATED RINGERS 1,000 ML IV SCH (11:45)
[2025-08-18] MEDS: PANTOPRAZOLE 40 MG/10 ML VIAL INJ IV SCH (11:45)
--- NOTE | 2025-08-18 12:52 | DVH ---
TECHNIQUE: Real-time ultrasound imaging of the abdomen was performed with grayscale and color Doppler. INDICATION: eval for sx COMPARISON: CT abdomen 08/18/2025 FINDINGS: Technically limited examination due to habitus. Liver measures 15.7 cm. It is increased in echogenicity and echotexture without focal mass. Portal vein is normal in caliber and demonstrates normal hepatopetal flow. Perihepatic ascites fluid. Gallbladder demonstrates 2 cm gallbladder wall mass/polyp. Gallbladder sludge and distention. There is no pericholecystic fluid. The wall thickness is normal. The common bile duct measures 7 mm. No intrahepatic biliary ductal dilatation. The right kidney measures 8 cm. Echogenic appearance of the right kidney. No hydronephrosis or sonographic evidence of nephrolithiasis. Pancreas is not adequately characterized. The visualized portion of the IVC is unremarkable. IMPRESSION: Limited secondary to habitus. Gallbladder wall mass / polyp measuring 2 cm. Recommend surgical consultation due to risk of neoplasm. Gallbladder distention and sludge. Echogenic liver which can be seen with hepatic steatosis, cirrhosis. Perihepatic ascites fluid Common bile duct diameter at the upper limits of normal measuring 7 mm. Recommend MRCP to further evaluate.
--- NOTE | 2025-08-18 13:09 | DVH ---
CHEST RADIOGRAPH INDICATION: confirm NGT placement TECHNIQUE: Single frontal view of the chest was obtained COMPARISON: XY CHEST XRAY 1 VIEW on DOS: 06/18/24, XY CHEST XRAY 1 VIEW on DOS: 06/17/24, XY CHEST PORTABLE on DOS: 06/14/24 FINDINGS: Lines and Tubes: None Lungs: No focal consolidation. Elevation of both diaphragms by what appears to be gas distended bowel consider CT abdomen and pelvis for further evaluation especially if pneumoperitoneum is of concern. Pleura: No effusion. No pneumothorax. Cardiomediastinal contours: Unremarkable Bones: No acute osseous abnormality. IMPRESSION: 1. Bibasilar areas of atelectasis with elevation of both diaphragms by air distended bowel. 2. Can not exclude bowel obstruction 3. Recommend CT abdomen and pelvis for further evaluation.
[2025-08-18 13:20] VITALS: O2SAT 98
[2025-08-18 13:51] VITALS: BP 124/71; PULSE 95; RESP 18; TEMP 98; O2SAT 98
[2025-08-18 17:00] VITALS: BP 140/83; PULSE 92; RESP 18; TEMP 98.8; O2SAT 92
[2025-08-18] MEDS ORDERED: ACET-1881 PO (17:13)
[2025-08-18] MEDS ORDERED: CIPR-173 PO (17:13)
--- NOTE | 2025-08-18 18:14 | DVHINCON2 ---
Date of service: Aug 18, 2025 History of Present Illness 75-year-old male with a history of atrial fibrillation, COPD on home oxygen, and hypertension with a previous history of small-bowel obstruction status post expiratory laparotomy by Dr. Lorenz last year admitted secondary to five day history of progressively worsening abdominal pain and distention. Patient reports a small bowel movement several days ago but no flatus or bowel movement since. He also reports one episode of nausea and vomiting. Past Medical History Atrial fibrillation. COPD with home oxygen. Hypertension. Past Surgical History Laparoscopic Dave-en-Y gastric bypass. Exploratory laparotomy last year for SBO. Hip surgeries. Family History: Alcoholism Cancer Cancer of colon Family history: Arthritis Family history: Asthma Family history: Blood disorder Family history: Cardiovascular disease Family history: Depression (situation) Family history: Diabetes mellitus Family history: Glaucoma Family history: Hypercholesterolemia (situation) Family history: Hypertension Family history: Thyroid disorder Malignant melanoma Malignant neoplasm of ovary Seizure disorder (situation) Stroke No Family History of: Family history: Alzheimer's disease Family history: Congenital anomaly Family history: Coronary thrombosis Family history: Diabetes in Family history: Osteoporosis Family history: Suicide (situation) Ischemic heart disease Malignant neoplasm of breast Malignant neoplasm of lung Prostate cancer Renal stone Family History Noncontributory Social History Denies alcohol, tobacco, IV drug use Allergies: Coded Allergies: Amiodarone (Verified Allergy, Unknown, 08/11/20) Diphenhydramine (Verified Allergy, Unknown, 08/11/20) Furosemide (Verified Allergy, Unknown, 08/11/20) Ibuprofen (Verified Allergy, Unknown, 08/11/20) Naproxen (Verified Allergy, Unknown, 08/11/20) Sulfa Drugs (Verified Allergy, Unknown, 08/11/20) Home Meds Active Scripts Prednisone (Prednisone) 20 Mg Tab, 60 MG PO DAILY for 3 Days, #9 MG Prov:REILLY REYES DO 12/13/21 Apixaban Base (ELIQUIS) 5 Mg Tab, 5 MG PO BID, #60 TAB Prov:JUANY ROBERTS MD 02/07/20 Metoprolol Tartrate (Lopressor) 25 Mg Tb, 12.5 MG PO BID, #30 TAB Check blood pressure and pulse prior to dose. Hold medication if systolic blood pressure is below 120 or pulse less than 70 Prov:JUANY ROBERTS MD 02/07/20 Reported Medications Ciprofloxacin Hcl (Cipro) 500 Mg Tab, 500 MG PO BID 08/18/25 Acetaminophen (Acetaminophen) 325 Mg Tab, 500 MG PO Q8HPRN PRN for MILD PAIN for 30 Days, MG 0 Refills 08/18/25 Allopurinol (Allopurinol) 300 Mg Tab, 300 MG PO DAILY for 30 Days, MG 05/23/24 Duloxetine Hcl (Cymbalta) 60 Mg Cap, 1 CAP PO DAILY, #90 CAP 3 Refills 05/23/24 Tamsulosin Hcl (Tamsulosin Hcl) 0.4 Mg Cap, 0.4 MG PO QPM for 30 Days, MG 05/23/24 Diltiazem Hcl (Diltiazem Hcl) 60 Mg Tab, 120 MG PO DAILY for 30 Days, MG 05/23/24 Atorvastatin Calcium (Lipitor) 20 Mg Tab, 1 TAB PO DAILY, #90 TAB 1 Refill 05/23/24 Docusate Sodium (Colace) 100 Mg Cap, 1 CAP PO BID, #30 CAP 05/23/24 Pseudoephedrine HCl ([facility] 12 Hour Nasal [place]) 120 Mg Tab, 60 MG PO BID, TAB 05/23/24 Cetirizine Hcl (Kls Aller-Maria Teresa) 10 Mg Tab, 1 TAB PO DAILY, #30 TAB 3 Refills 05/23/24 Lisinopril (Lisinopril) 10 Mg Tab, 5 MG PO DAILY for 30 Days, MG 02/21/20 Hydrochlorothiazide (Hydrochlorothiazide) 12.5 Mg Cap, 12.5 MG PO DAILY for 30 Days, MG 02/21/20 Nortriptyline Hcl (PAMELOR CAPSULE) 25 Mg Cp, 50 MG PO BID, CP 03/27/14 Omeprazole (Sm Omeprazole) 20 Mg Tab, 40 MG PO DAILY 01/24/13 Nitroglycerin (Nitroglycerin) 0.4 Mg Sl, DAILYP 01/24/13 Trazodone Hcl (Trazodone Hcl) 100 Mg Tab, PO HS 01/24/13 Senna (Sennosides) 8.6 Mg Tab, PO DAILYP 01/24/13 Potassium Chloride (K-Tabs) 10 Meq Tab, 30 PO BID 01/24/13 Multiple Vitamin (Mvi Tab) 1 Tab Tb 01/13/12 [place]-3 Fatty Acids (Fish Oil) 1,000 Mg Cap 5/14/12 Epinephrine Hcl (Anaphylaxis) (Epipen) 0.3 Mg Inj 01/13/12 Citalopram Hydrobromide (Citalopram Hydrobromide) 20 Mg Tab 01/13/12 Cholecalciferol (D 400) 400 Unit Chw 01/13/12 Albuterol Sulfate (Albuterol Sulfate) 0.5 % Neb 01/13/12 Discontinued Reported Medications Omeprazole (Gnp Omeprazole) 20 Mg Tab, 1 TAB PO DAILY, #90 TAB 1 Refill 05/23/24 Metoprolol Tartrate (Metoprolol Tartrate) 25 Mg Tab, 10 MG PO BID for 30 Days, MG 02/21/20 Diazepam (Diazepam) 10 Mg Tab, 30 MG PO BID, TAB 02/21/20 Allopurinol (Zyloprim) 100 Mg Tab 01/24/13 Docusate Calcium (Sb Stool Softener) 240 Mg Cap, PO 01/24/13 Atorvastatin Calcium (ATORVASTATIN CALCIUM) 40 Mg Tab, PO HS 01/24/13 Current Medications Current Medications Medications (Trade) Dose Ordered Sig/Jason Route PRN Reason Start Time Stop Time Status Last Admin Acetaminophen/ Hydrocodone Bitart ([place] 5/325MG Tab) 1 tab Q4HP PRN PO MODERATE PAIN (4-6 PAIN SCALE) 08/18/25 09:00 Ondansetron HCl (Zofran) 4 mg Q4HP PRN IV NAUSEA / VOMITING 08/18/25 09:00 Docusate Sodium (Colace Capsule) 100 mg BIDPRN PRN PO FOR CONSTIPATION 08/18/25 09:00 08/18/25 10:23 Enoxaparin Sodium (Lovenox) 40 mg DAILY SC 08/18/25 10:00 08/18/25 11:41 DC 08/18/25 09:59 Acetaminophen (Tylenol Tablet) 650 mg Q6HP PRN PO PAIN SCALE 1-3 OR TEMP>100.4 08/18/25 09:00 08/18/25 10:34 Hydralazine HCl (Apresoline Injection) 10 mg Q6HP PRN IV SBP>150 08/18/25 11:45 Enoxaparin Sodium (Lovenox) 80 mg Q12HR SC 08/18/25 22:00 08/18/25 17:44 DC Pantoprazole Sodium (Protonix) 40 mg DAILY IV 08/18/25 11:45 08/18/25 11:45 Dextrose/Lactated Ringer's 1,000 ml @ 75 mls/hr [id number] IV 08/18/25 11:45 08/18/25 17:44 DC 08/18/25 11:45 Ipratropium [place] (Atrovent Medneb) 0.5 mg Q4HPRN PRN NEB SHORTNESS OF BREATH 08/18/25 11:45 Sodium Chloride 1,000 ml @ 125 mls/hr Q8H IV 08/18/25 17:45 Vital Signs Vital Signs Date Time Temp Pulse Resp B/P (MAP) Pulse Ox O2 Delivery O2 Flow Rate FiO2 08/18/25 17:00 98.8 92 18 140/83 (102) 92 98.8 08/18/25 13:51 3.0 08/18/25 13:20 Nasal Cannula* 32 Physical Exam GEN: Elderly male in no acute distress. Alert. HEENT: Normocephalic atraumatic. Moist mucous membranes. Anicteric sclerae. CV: Regularly irregular Respiratory: Coarse breath sounds ABD: Large midline incisional scar. Abdomen is very obese and distended but still soft. Minimal diffuse tenderness to palpation without guarding or rebound. CT of the abdomen and pelvis: Dilated fluid-filled small bowel loops throughout the most of the abdomen and pelvis with distended right colon from cecum to the hepatic flexure where there appeared to be a transition to nondilated distal portion of the colon with possible twisting or swirling of the mesentery suggesting volvulus. Labs/Diagnostic Data Labs Test 08/18/25 08:28 08/18/25 07:03 Range/Units Urine Color Yellow Yellow Urine Clarity Turbid H Clear Urine pH 5.5 5.0-9.0 Urine Specific [place] 1.026 1.001-1.035 Urine Protein Trace H Negative Urine Ketones Negative Negative Urine Blood 3+ H Negative /uL Urine Nitrite Negative Negative Urine Bilirubin Negative Negative Urine Urobilinogen Normal Negative mg/dL Urine Leukocyte Esterase 1+ Negative /uL Urine RBC 602 0 - 3 /hpf Urine Microscopic WBC 12 H 0-3 /HPF Urine Squamous Epithelial Cells Few <5 /hpf Urine Bacteria Few H None Seen /hpf Urine Hyaline Casts Mod 0 - 2 /lpf Urine Mucus Few None Seen Urine Glucose Normal Normal mg/dL White Blood Count 5.8 4.4-10.8 10^3/uL Red Blood Count 4.86 4.5-5.90 10^6/uL Hemoglobin 11.9 L 13.5-17.5 g/dL Hematocrit 37.4 L 41.0-53.0 % Mean Corpuscular Volume 76.9 L 80.0-100.0 fL Mean Corpuscular Hemoglobin 24.5 L 28.0-32.0 pg Mean Corpuscular Hemoglobin Concent 31.8 L 32.0-36.0 g/dL Red Cell Distribution Width 22.6 H 11.8-14.3 % Platelet Count 263 140-450 10^3/uL Mean Platelet Volume 7.9 6.9-10.8 fL Neutrophils (%) (Auto) 71.9 37.0-80.0 % Lymphocytes (%) (Auto) 16.2 10.0-50.0 % Monocytes (%) (Auto) 9.9 0.0-12.0 % Eosinophils (%) (Auto) 1.2 0.0-7.0 % Basophils (%) (Auto) 0.8 0.0-2.0 % Neutrophils # (Auto) 4.2 1.6-8.6 10 ^3/uL Lymphocytes # (Auto) 0.9 0.4-5.4 10 ^3/uL Monocytes # (Auto) 0.6 0-1.3 10 ^3/uL Eosinophils # (Auto) 0.1 0-0.8 10 ^3/uL Basophils # (Auto) 0 0-0.2 10 ^3/uL Nucleated Red Blood Cells 0.1 % Sodium Level 135 L 136-145 mmol/L Potassium Level 5.2 H 3.5-5.1 mmol/L Chloride Level 93 L 98-107 mmol/L Carbon Dioxide Level 33 H 20-31 mmol/L Anion Gap 9 5-15 Blood Urea Nitrogen 19 9-23 mg/dL Creatinine 1.32 H 0.700-1.30 mg/dL Glomerular Filtration Rate Calc 57 >90 mL/min BUN/Creatinine Ratio 14.4 10.0-20.0 Serum Glucose 121 H 74-106 mg/dL Calcium Level 10.2 8.7-10.4 mg/dL Assessment 1. Colonic obstruction possibly from volvulus Plan/Recommendation 1. We will get a cardiac evaluation for cardiac clearance 2. GI consultation for possible colonoscopic decompression 3. If endoscopic resolution is of the volvulus is not possible, patient will require surgical intervention with possible bowel resection/colostomy Plan discussed with: Patient, Son PREETI BARBOZA MD Aug 18, 2025 18:14
--- NOTE | 2025-08-18 18:31 | DVH ---
CHEST RADIOGRAPH INDICATION: NG TUBE PLACEMENT TECHNIQUE: Single frontal view of the chest was obtained COMPARISON: XY CHEST PORTABLE on DOS: 08/18/25, XY CHEST XRAY 1 VIEW on DOS: 06/18/24, XY CHEST XRAY 1 VIEW on DOS: 06/17/24 FINDINGS: Lines and Tubes: Enteric tube can be visualized of the gastroesophageal junction on the left. The gas distended dilated small-bowel is obscuring visualization of the stomach. Findings to suggest small bowel obstruction. Lungs: No focal consolidation. Pleura: No effusion. No pneumothorax. Cardiomediastinal contours: Unremarkable Bones: No acute osseous abnormality. IMPRESSION: 1. Findings suggest small bowel obstruction. 2. Enteric tube can be visualized to the gastroesophageal junction but the dilated small-bowel is obscuring visualization of the stomach.
[2025-08-18 20:00] VITALS: PULSE 100; RESP 18; O2SAT 92
[2025-08-18 21:00] VITALS: BP 139/81; PULSE 100; RESP 18; TEMP 99.2; O2SAT 92
--- NOTE | 2025-08-18 21:53 | DVH ---
EXAM: XY CHEST XRAY 1 VIEW HISTORY: NG Tube Placement TECHNIQUE: 1 view of the chest COMPARISON: XY CHEST XRAY 1 VIEW on DOS: 08/18/25 FINDINGS/IMPRESSION: LUNGS: No pleural effusion, consolidation, or pneumothorax. low lung volumes, which cause crowding of the bronchovascular markings. Elevation of the right hemidiaphragm. Gas distention of the transverse colon significant gas distention of the level of the hepatic flexure. Imaging finding may be a source of pain. MEDIASTINUM: Unremarkable. BONES: No acute osseous abnormality. OTHER: Proximal retraction of the enteric tube now of the level of the distal esophagus and recommend advancement.
[2025-08-18] MEDS ORDERED: ENOXAPARIN SOD 80 MG/0.8ML SYRINGE SC SCH (22:00)
[2025-08-18] MEDS: FLEET ENEMA(ADULT) 135 ML PR ONE (22:09)
[2025-08-18] MEDS: SODIUM CHLORIDE 0.9% 1,000 ML IV SCH (23:24)
--- NOTE | 2025-08-18 23:30 | DVH ---
CHEST RADIOGRAPH INDICATION: NG tube placement TECHNIQUE: Single frontal view of the chest was obtained COMPARISON: XY CHEST XRAY 1 VIEW on DOS: 08/18/25, XY CHEST XRAY 1 VIEW on DOS: 08/18/25, XY CHEST PORTABLE on DOS: 08/18/25, XY CHEST XRAY 1 VIEW on DOS: 06/18/24, XY CHEST XRAY 1 VIEW on DOS: 06/17/24 FINDINGS: Lines and Tubes: Interval advancement of enteric catheter which now terminates within the gastric lumen. Lungs: Diminished lung volumes with associated bibasilar atelectasis. No evidence of focal consolidation. Pleura: No effusion. No pneumothorax. Cardiomediastinal contours: Unremarkable Bones: Unremarkable IMPRESSION: 1. Interval advancement of enteric catheter which now terminates within the gastric lumen. 2. Bibasilar atelectasis.
[2025-08-19] VITALS (13 sets, daily range): BP systolic 140–174; BP diastolic 81–93; PULSE 65–113; RESP 17–22; TEMP 97.8–99; O2SAT 92–95
[2025-08-19 05:57] LABS: Nucleated Red Blood Cells % 0.1 %
[2025-08-19 06:01] LABS: Hematocrit 37.3 % (41.0-53.0); Hemoglobin 11.8 g/dL (13.5-17.5); Mean Corpuscular Hemoglobin 24.4 pg (28.0-32.0); Mean Corpuscular Volume 76.9 fL (80.0-100.0)
[2025-08-19 06:08] LABS: INR 1.01 (0.9-1.15); Partial Thromboplastin Time 26.2 SEC (24.5-34.5); Prothrombin Time 10.7 sec (9.3-11.8)
[2025-08-19 06:28] LABS: Alanine Aminotransferase 19 U/L (7-40); Albumin 4.2 g/dL (3.2-4.8); Anion Gap 11 (5-15); BUN/Creatinine Ratio 13.8 (10.0-20.0); Blood Urea Nitrogen 15 mg/dL (9-23); Calcium 9.8 mg/dL (8.7-10.4); Carbon Dioxide 27 mmol/L (20-31); Total Protein 7.0 g/dL (5.7-8.2)
[2025-08-19 06:29] LABS: Bilirubin, Total 0.5 mg/dL (0.2-1.0)
[2025-08-19 06:33] LABS: Alkaline Phosphatase 190 U/L (46-116); Chloride 96 mmol/L (98-107); Glucose 112 mg/dL (74-106); Potassium 5.3 mmol/L (3.5-5.1); Sodium 134 mmol/L (136-145)
--- NOTE | 2025-08-19 09:47 | DVHINCON2 ---
Date Seen: Aug 19, 2025 Referring Physician MD Lala Reason for Consultation Cardiac risk stratification History of Present Illness This is a 75-year-old male patient who presents to the emergency room with chief complaint of abdominal pain and constipation for three days prior to emergency room arrival. During this admission, the patient was found to have an obstruction at the level of the hepatic flexure of the colon consistent with volvulus. Cardiology has been consulted at this time for cardiac risk stratification for possible surgical intervention. Initial twelve lead electrocardiogram in patient's chart reveals normal sinus rhythm with nonspecific T-wave inversion to inferolateral leads. The patient denies any cardiac symptoms such as chest pain, palpitations, shortness of breath, or dizziness. Significant past medical history includes congestive heart failure, paroxysmal atrial fibrillation (on Eliquis), SVT, hypertension, dyslipidemia, COPD with home O2 use, and morbid obesity. 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 Past Medical History Past medical history reviewed. No other significant than mentioned above. Past Surgical History Left ORIF on 05/27/2024 Exploratory laparotomy with resection on 06/08/2024 Gastric bypass in July 2009 Family History: Alcoholism Cancer Cancer of colon Family history: Arthritis Family history: Asthma Family history: Blood disorder Family history: Cardiovascular disease Family history: Depression (situation) Family history: Diabetes mellitus Family history: Glaucoma Family history: Hypercholesterolemia (situation) Family history: Hypertension Family history: Thyroid disorder Malignant melanoma Malignant neoplasm of ovary Seizure disorder (situation) Stroke No Family History of: Family history: Alzheimer's disease Family history: Congenital anomaly Family history: Coronary thrombosis Family history: Diabetes in Family history: Osteoporosis Family history: Suicide (situation) Ischemic heart disease Malignant neoplasm of breast Malignant neoplasm of lung Prostate cancer Renal stone Family History Family history reviewed. Social History Denies the use of tobacco, alcohol or illicit drugs. Allergies: Coded Allergies: Diphenhydramine (Verified Allergy, Unknown, 08/11/20) Furosemide (Verified Allergy, Unknown, 08/11/20) Ibuprofen (Verified Allergy, Unknown, 08/11/20) Naproxen (Verified Allergy, Unknown, 08/11/20) Sulfa Drugs (Verified Allergy, Unknown, 08/11/20) Home Meds Active Scripts Prednisone (Prednisone) 20 Mg Tab, 60 MG PO DAILY for 3 Days, #9 MG Prov:REILLY REYES DO 12/13/21 Apixaban Base (ELIQUIS) 5 Mg Tab, 5 MG PO BID, #60 TAB Prov:JUANY ROBERTS MD 02/07/20 Metoprolol Tartrate (Lopressor) 25 Mg Tb, 12.5 MG PO BID, #30 TAB Check blood pressure and pulse prior to dose. Hold medication if systolic blood pressure is below 120 or pulse less than 70 Prov:JUANY ROBERTS MD 02/07/20 Reported Medications Ciprofloxacin Hcl (Cipro) 500 Mg Tab, 500 MG PO BID 08/18/25 Acetaminophen (Acetaminophen) 325 Mg Tab, 500 MG PO Q8HPRN PRN for MILD PAIN for 30 Days, MG 0 Refills 08/18/25 Allopurinol (Allopurinol) 300 Mg Tab, 300 MG PO DAILY for 30 Days, MG 05/23/24 Duloxetine Hcl (Cymbalta) 60 Mg Cap, 1 CAP PO DAILY, #90 CAP 3 Refills 05/23/24 Tamsulosin Hcl (Tamsulosin Hcl) 0.4 Mg Cap, 0.4 MG PO QPM for 30 Days, MG 05/23/24 Diltiazem Hcl (Diltiazem Hcl) 60 Mg Tab, 120 MG PO DAILY for 30 Days, MG 05/23/24 Atorvastatin Calcium (Lipitor) 20 Mg Tab, 1 TAB PO DAILY, #90 TAB 1 Refill 05/23/24 Docusate Sodium (Colace) 100 Mg Cap, 1 CAP PO BID, #30 CAP 05/23/24 Pseudoephedrine HCl ([facility] 12 Hour Nasal [place]) 120 Mg Tab, 60 MG PO BID, TAB 05/23/24 Cetirizine Hcl (Kls Aller-Maria Teresa) 10 Mg Tab, 1 TAB PO DAILY, #30 TAB 3 Refills 05/23/24 Lisinopril (Lisinopril) 10 Mg Tab, 5 MG PO DAILY for 30 Days, MG 02/21/20 Hydrochlorothiazide (Hydrochlorothiazide) 12.5 Mg Cap, 12.5 MG PO DAILY for 30 Days, MG 02/21/20 Nortriptyline Hcl (PAMELOR CAPSULE) 25 Mg Cp, 50 MG PO BID, CP 03/27/14 Omeprazole (Sm Omeprazole) 20 Mg Tab, 40 MG PO DAILY 01/24/13 Nitroglycerin (Nitroglycerin) 0.4 Mg Sl, DAILYP 01/24/13 Trazodone Hcl (Trazodone Hcl) 100 Mg Tab, PO HS 01/24/13 Senna (Sennosides) 8.6 Mg Tab, PO DAILYP 01/24/13 Potassium Chloride (K-Tabs) 10 Meq Tab, 30 PO BID 01/24/13 Multiple Vitamin (Mvi Tab) 1 Tab Tb 01/13/12 [place]-3 Fatty Acids (Fish Oil) 1,000 Mg Cap 01/13/12 Epinephrine Hcl (Anaphylaxis) (Epipen) 0.3 Mg Inj 01/13/12 Citalopram Hydrobromide (Citalopram Hydrobromide) 20 Mg Tab 01/13/12 Cholecalciferol (D 400) 400 Unit Chw 01/13/12 Albuterol Sulfate (Albuterol Sulfate) 0.5 % Neb 01/13/12 Discontinued Reported Medications Omeprazole (Gnp Omeprazole) 20 Mg Tab, 1 TAB PO DAILY, #90 TAB 1 Refill 05/23/24 Metoprolol Tartrate (Metoprolol Tartrate) 25 Mg Tab, 10 MG PO BID for 30 Days, MG 02/21/20 Diazepam (Diazepam) 10 Mg Tab, 30 MG PO BID, TAB 02/21/20 Allopurinol (Zyloprim) 100 Mg Tab 01/24/13 Docusate Calcium (Sb Stool Softener) 240 Mg Cap, PO 01/24/13 Atorvastatin Calcium (ATORVASTATIN CALCIUM) 40 Mg Tab, PO HS 01/24/13 Home Meds Home medications reviewed. Current Medications Current Medications Medications (Trade) Dose Ordered Sig/Jason Route PRN Reason Start Time Stop Time Status Last Admin Enoxaparin Sodium (Lovenox) 40 mg DAILY SC 08/18/25 10:00 08/18/25 11:41 DC 08/18/25 09:59 Hydralazine HCl (Apresoline Injection) 10 mg Q6HP PRN IV SBP>150 08/18/25 11:45 Enoxaparin Sodium (Lovenox) 80 mg Q12HR SC 08/18/25 22:00 08/18/25 17:44 DC Pantoprazole Sodium (Protonix) 40 mg DAILY IV 08/18/25 11:45 08/19/25 09:40 Dextrose/Lactated Ringer's 1,000 ml @ 75 mls/hr [id number] IV 08/18/25 11:45 08/18/25 17:44 DC 08/18/25 11:45 Ipratropium [place] (Atrovent Medneb) 0.5 mg Q4HPRN PRN NEB SHORTNESS OF BREATH 08/18/25 11:45 Sodium Chloride 1,000 ml @ 125 mls/hr Q8H IV 08/18/25 17:45 08/19/25 09:40 Review of Systems Constitutional: No symptom reported Ears, Nose, & Throat: No symptom reported Eyes: No symptom reported Neurological: No symptoms reported Pulmonary/Respiratory: No symptoms reported Cardiovascular: No symptom reported Gastrointestinal: Abdominal pain, constipation Genitourinary: No symptom reported Musculoskeletal: No symptom reported Skin: No symptom reported Psychiatric: No symptom reported Endocrine: No symptom reported Hematologic/Lymphatic: No symptom reported Vital Signs Vital Signs Date Time Temp Pulse Resp B/P (MAP) Pulse Ox O2 Delivery O2 Flow Rate FiO2 08/19/25 09:00 97.8 101 22 153/93 (113) 93 97.8 08/19/25 00:36 Nasal Cannula* 3 32 Physical Exam General Appearance: Cooperative. Obese Pulmonary/Respiratory: Clear, bilateral breaths sounds. Cardiovascular/Chest: Regular rate and rhythm. Peripheral Pulses: 2+ Radial (R). 2+ Radial (L). 2+ Pedal (R). 2+ Pedal (L) Abdominal Exam: Hypoactive bowel sounds. Abdomen is large distended Ankle Exam: Negative ankle edema Lower extremities: Negative lower extremity edema Neuro/Mental Status: A/OX4, coherent. Thoughts/Psych: Normal thought pattern. Appropriate mood and affect. Good judgment and insight. Appearance: No acute distress. Skin Exam: Normal inspection. Normal color. Warm and dry. Labs/Diagnostic Data Labs Test 08/19/25 05:36 08/18/25 08:28 Range/Units White Blood Count 5.0 4.4-10.8 10^3/uL Red Blood Count 4.85 4.5-5.90 10^6/uL Hemoglobin 11.8 L 13.5-17.5 g/dL Hematocrit 37.3 L 41.0-53.0 % Mean Corpuscular Volume 76.9 L 80.0-100.0 fL Mean Corpuscular Hemoglobin 24.4 L 28.0-32.0 pg Mean Corpuscular Hemoglobin Concent 31.7 L 32.0-36.0 g/dL Red Cell Distribution Width 22.7 H 11.8-14.3 % Platelet Count 240 140-450 10^3/uL Mean Platelet Volume 7.9 6.9-10.8 fL Neutrophils (%) (Auto) 74.2 37.0-80.0 % Lymphocytes (%) (Auto) 14.9 10.0-50.0 % Monocytes (%) (Auto) 9.2 0.0-12.0 % Eosinophils (%) (Auto) 1.3 0.0-7.0 % Basophils (%) (Auto) 0.4 0.0-2.0 % Neutrophils # (Auto) 3.7 1.6-8.6 10 ^3/uL Lymphocytes # (Auto) 0.7 0.4-5.4 10 ^3/uL Monocytes # (Auto) 0.5 0-1.3 10 ^3/uL Eosinophils # (Auto) 0.1 0-0.8 10 ^3/uL Basophils # (Auto) 0 0-0.2 10 ^3/uL Nucleated Red Blood Cells 0.1 % Prothrombin Time 10.7 9.3-11.8 sec Prothrombin Time INR 1.01 0.9-1.15 Activated Partial Thromboplast Time 26.2 24.5-34.5 SEC Sodium Level 134 L 136-145 mmol/L Potassium Level 5.3 H 3.5-5.1 mmol/L Chloride Level 96 L 98-107 mmol/L Carbon Dioxide Level 27 20-31 mmol/L Anion Gap 11 5-15 Blood Urea Nitrogen 15 9-23 mg/dL Creatinine 1.09 0.700-1.30 mg/dL Glomerular Filtration Rate Calc 72 >90 mL/min BUN/Creatinine Ratio 13.8 10.0-20.0 Serum Glucose 112 H 74-106 mg/dL Calcium Level 9.8 8.7-10.4 mg/dL Total Bilirubin 0.5 0.2-1.0 mg/dL Aspartate Amino Transferase (AST) 29 13-40 U/L Alanine Aminotransferase (ALT) 19 7-40 U/L Alkaline Phosphatase 190 H 46-116 U/L Total Protein 7.0 5.7-8.2 g/dL Albumin 4.2 3.2-4.8 g/dL Lipase 24 12-53 U/L Urine Color Yellow Yellow Urine Clarity Turbid H Clear Urine pH 5.5 5.0-9.0 Urine Specific [place] 1.026 1.001-1.035 Urine Protein Trace H Negative Urine Ketones Negative Negative Urine Blood 3+ H Negative /uL Urine Nitrite Negative Negative Urine Bilirubin Negative Negative Urine Urobilinogen Normal Negative mg/dL Urine Leukocyte Esterase 1+ Negative /uL Urine RBC 602 0 - 3 /hpf Urine Microscopic WBC 12 H 0-3 /HPF Urine Squamous Epithelial Cells Few <5 /hpf Urine Bacteria Few H None Seen /hpf Urine Hyaline Casts Mod 0 - 2 /lpf Urine Mucus Few None Seen Urine Glucose Normal Normal mg/dL Assessment Preprocedural cardiovascular examination Paroxysmal atrial fibrillation, Stage 3A (on Eliquis) History of SVT Chronic HFpEF, NYHA class II Hypertension Dyslipidemia COPD with home O2 use Morbid obesity Plan/Recommendation We will continue with the following plan/recommendations (Dr. Wren): A transthoracic echocardiogram reveals an EF of 70% with normal LV wall motion. Revised Cardiac Risk Index (Luís criteria): 2 points (5% risk of major cardiac event). The patient has an underlying history of congestive heart failure, but at this time has no cardiac symptoms at this time. Most recent chest x-ray shows no acute cardiopulmonary findings. Prior to admission, the patient reports a good functional capacity. Per cardiology standpoint, patient is at an acceptable-risk for moderate-risk surgery. There is no additional cardiac work- up indicated prior to surgery. Thank you for allowing us to participate in this patient's care. Please call if you have any questions or concerns. Critical care time spent: 44 minutes This medical document was created using an electronic medical record system with voice recognition software and computerized dictation system. Although this document has been carefully reviewed, there might still be some phonetic and typographical errors. Occasional wrong-word or ``sound-alike substitutions may have occurred due to the inherent limitations of voice recognition software. These areas are purely typographical due to imperfections of the software programs and do not reflect any compromise in the patient's medical care. Please read the chart carefully and recognize, using context, where these substitutions have occurred. Plan discussed with: Patient NYHA Physical activity limitations: Class2(Slight)fatigue,sob (palpitatns, angina w activityv) Date of Service: Aug 19, 2025 Billing Provider: CARLA PRESLEY Cardiology Common Codes: 31159-NECJFSE INP/OBS CARE (High) Cardiology Consultation Codes: 66001-OBJRBSRIT CONSULT <45MIN CARLA PRESLEY Aug 19, 2025 09:47
[2025-08-19] MEDS: IPRATROPIUM BROM 0.5 MG/2.5ML INH SOL NEB PRN (09:48)
--- NOTE | 2025-08-19 11:58 | ECG ---
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
--- NOTE | 2025-08-19 12:17 | DVHINCON2 ---
GI Consult Consult Note GI consult note Date of Consultation: 08/19/2025 Chief Complaint: Abdominal pain constipation Referring Physician: SHOAIB WEST H&P: 75-year-old male with past medical history of AFib, arthritis, CHD, COPD, HLD, HTN admitted with complains of abdominal pain for the past four days. Patient also had no bowel movements for past four days but has had three bowel movements since being admitted yesterday. Denies melena or red blood in stool. Patient has history of small bowel obstruction status post exploratory laparoscopy procedure with Dr. Lorenz one year ago. Patient has NG-tube at this time Past Medical History: AFIB, Arthritis, CHF, COPD, High Lipids, HTN Past Surgical History: Tonsillectomy, exploratory laparoscopy procedure for small bowel obstruction one year ago Social History: NO smoking, drinking ETOH and use of illegal drugs. Family History: Noncontributory Review of Systems: Constitutional: no fever, chill, weight loss HEENT: no eye pain, no hearing loss, no oral lesion, no scleral icterus Heart: no chest pain, no chest pressure Lung: no cough, no dyspnea with exertion Abdomen: see HPI Physical exam: General: NAD, AAOX3 Chest: lung villarreal clear to auscultation Heart: RRR, no murmur Abdomen: Moderate distention, mild diffuse tenderness to palpation, +BS Labs: Labs Test 08/19/25 05:36 08/18/25 08:28 Range/Units White Blood Count 5.0 4.4-10.8 10^3/uL Red Blood Count 4.85 4.5-5.90 10^6/uL Hemoglobin 11.8 L 13.5-17.5 g/dL Hematocrit 37.3 L 41.0-53.0 % Mean Corpuscular Volume 76.9 L 80.0-100.0 fL Mean Corpuscular Hemoglobin 24.4 L 28.0-32.0 pg Mean Corpuscular Hemoglobin Concent 31.7 L 32.0-36.0 g/dL Red Cell Distribution Width 22.7 H 11.8-14.3 % Platelet Count 240 140-450 10^3/uL Mean Platelet Volume 7.9 6.9-10.8 fL Neutrophils (%) (Auto) 74.2 37.0-80.0 % Lymphocytes (%) (Auto) 14.9 10.0-50.0 % Monocytes (%) (Auto) 9.2 0.0-12.0 % Eosinophils (%) (Auto) 1.3 0.0-7.0 % Basophils (%) (Auto) 0.4 0.0-2.0 % Neutrophils # (Auto) 3.7 1.6-8.6 10 ^3/uL Lymphocytes # (Auto) 0.7 0.4-5.4 10 ^3/uL Monocytes # (Auto) 0.5 0-1.3 10 ^3/uL Eosinophils # (Auto) 0.1 0-0.8 10 ^3/uL Basophils # (Auto) 0 0-0.2 10 ^3/uL Nucleated Red Blood Cells 0.1 % Prothrombin Time 10.7 9.3-11.8 sec Prothrombin Time INR 1.01 0.9-1.15 Activated Partial Thromboplast Time 26.2 24.5-34.5 SEC Sodium Level 134 L 136-145 mmol/L Potassium Level 5.3 H 3.5-5.1 mmol/L Chloride Level 96 L 98-107 mmol/L Carbon Dioxide Level 27 20-31 mmol/L Anion Gap 11 5-15 Blood Urea Nitrogen 15 9-23 mg/dL Creatinine 1.09 0.700-1.30 mg/dL Glomerular Filtration Rate Calc 72 >90 mL/min BUN/Creatinine Ratio 13.8 10.0-20.0 Serum Glucose 112 H 74-106 mg/dL Calcium Level 9.8 8.7-10.4 mg/dL Total Bilirubin 0.5 0.2-1.0 mg/dL Aspartate Amino Transferase (AST) 29 13-40 U/L Alanine Aminotransferase (ALT) 19 7-40 U/L Alkaline Phosphatase 190 H 46-116 U/L Total Protein 7.0 5.7-8.2 g/dL Albumin 4.2 3.2-4.8 g/dL Lipase 24 12-53 U/L Urine Color Yellow Yellow Urine Clarity Turbid H Clear Urine pH 5.5 5.0-9.0 Urine Specific [place] 1.026 1.001-1.035 Urine Protein Trace H Negative Urine Ketones Negative Negative Urine Blood 3+ H Negative /uL Urine Nitrite Negative Negative Urine Bilirubin Negative Negative Urine Urobilinogen Normal Negative mg/dL Urine Leukocyte Esterase 1+ Negative /uL Urine RBC 602 0 - 3 /hpf Urine Microscopic WBC 12 H 0-3 /HPF Urine Squamous Epithelial Cells Few <5 /hpf Urine Bacteria Few H None Seen /hpf Urine Hyaline Casts Mod 0 - 2 /lpf Urine Mucus Few None Seen Urine Glucose Normal Normal mg/dL Imaging: CT abdomen pelvis IMPRESSION: 1. Limited examination due to the reasons described above. 2. There is obstruction at the level of the hepatic flexure of the colon, with swirling of the mesentery consistent with volvulus. 3. Hydropic appearing gallbladder with gallstone visualized in the gallbladder. Acute cholecystitis not excluded. Correlate with clinical findings. Ultrasound could be considered to further characterize. 4. Hepatic steatosis. 5. Chronic appearing L1 vertebral body compression fracture. Correlate with clinical findings. 6. Additional findings as detailed above. Gallbladder ultrasound IMPRESSION: Limited secondary to habitus. Gallbladder wall mass / polyp measuring 2 cm. Recommend surgical consultation due to risk of neoplasm. Gallbladder distention and sludge. Echogenic liver which can be seen with hepatic steatosis, cirrhosis. Perihepatic ascites fluid Common bile duct diameter at the upper limits of normal measuring 7 mm. Recommend MRCP to further evaluate. Assessment: Possible colonic obstruction Volvulus Constipation Abdominal pain Abnormal ultrasound of gallbladder possible gallbladder wall mass/polyp Hepatic steatosis Plan: Discussed with Dr. Lorenz NPO NGT to LIS Recommend surgical intervention, as patient is not a candidate for colonoscopy due to location and extension volvulus CEA We will continue to monitor patient Discussed Dr. Lorenz's recommendation with Dr. Reeves surgeon also Thank you for this consult Date of Service: Aug 19, 2025 Billing Provider: FREDDY GIRALDO Common Visit Codes: CONSULT ONLY Consultation Codes: [id number] CONSULT <60MIN FREDDY GIRALDO Aug 19, 2025 12:17
--- NOTE | 2025-08-19 12:20 | DVH ---
EXAM: XY KUB ABDOMEN SINGLE VIEW INDICATION: colonic obstruction COMPARISON: XY ABDOMEN 2 VIEW on DOS: 06/17/24, XY KUB ABDOMEN SINGLE VIEW on DOS: 06/12/24, XY KUB ABDOMEN SINGLE VIEW on DOS: 06/07/24, XY KUB ABDOMEN SINGLE VIEW on DOS: 06/03/24, XY KUB ABDOMEN SINGLE VIEW on DOS: 05/29/24 TECHNIQUE: 2 radiographic views of the abdomen. FINDINGS: Enteric catheter in satisfactory position overlying the stomach. Nonspecific bowel-gas pattern with diffuse air-filled distention of small and large bowel loops. There is no definite evidence for pneumoperitoneum. No abnormal calcifications noted. IMPRESSION: Enteric catheter in satisfactory position.
--- NOTE | 2025-08-19 12:36 | DVHPN2 ---
Progress Note - Dictate Date Seen: Aug 19, 2025 Medical Necessity Reason Pt with a Central, PICC or Fol: No Subjective E: no major events o/n. feels better than yesterday. denies abd pain. mult small BM's this AM vital signs Vital Sign Date Time Temp Pulse Resp B/P (MAP) Pulse Ox O2 Delivery O2 Flow Rate FiO2 08/19/25 09:48 90 18 94 08/19/25 09:48 Room Air 0.0 08/19/25 09:48 21 08/19/25 09:00 97.8 153/93 (113) 97.8 Total Intake and Output 08/18/25 08/18/25 08/19/25 15:00 23:00 07:00 Intake Total 0 ml 0 ml Output Total 250 ml Balance 0 ml -250 ml medications Current Medications Medications Dose Ordered Sig/Jason Route Start Time Stop Time Status Last Admin Dose Admin Acetaminophen/ Hydrocodone Bitart 1 tab Q4HP PRN PO 08/18/25 09:00 Ondansetron HCl 4 mg Q4HP PRN IV 08/18/25 09:00 Docusate Sodium 100 mg BIDPRN PRN PO 08/18/25 09:00 08/18/25 10:23 100 MG Acetaminophen 650 mg Q6HP PRN PO 08/18/25 09:00 08/18/25 10:34 650 MG Hydralazine HCl 10 mg Q6HP PRN IV 08/18/25 11:45 Pantoprazole Sodium 40 mg DAILY IV 08/18/25 11:45 08/19/25 09:40 40 MG Ipratropium [place] 0.5 mg Q4HPRN PRN NEB 08/18/25 11:45 08/19/25 09:48 0.5 MG Sodium Chloride 1,000 ml @ 125 mls/hr Q8H IV 08/18/25 17:45 08/19/25 09:40 125 MLS/HR objective GEN: NAD ABD: soft but still distended although slt less. NT. KUB: ileus. CT reviewed with Dr. Levy (radiologist). He doubts that there is volvulus at hepatic flexure and thinks it is more likely ileus. laboratory and microbiology Laboratory Tests 08/19/25 05:36 Test 08/19/25 05:36 Range/Units Serum Glucose 112 H 74-106 mg/dL Assessment/Plan A: 1. ileus vs colonic volvulus (less likely) P: 1. since patient is showing clinical improvement, will cont bowel regimen with gentle golytely via NGT and fleet enema. 2. TPN Plan discussed with: Patient PREETI BARBOZA MD Aug 19, 2025 12:35
[2025-08-19] MEDS: SODIUM ZIRCONIUM CYCL 10 GM PAK GT ONE (14:00)
[2025-08-19] MEDS: GOLYTELY 4L KIT PO ONE (14:00)
--- NOTE | 2025-08-19 14:59 | DVHSR ---
APPROVED REPORT EXAM: Two-dimensional and M-mode echocardiogram with Doppler and color Doppler. Blood Pressure: 141/56 mmHg INDICATION Pre-Op RISK FACTORS Height: 5'7", Weight: 184 DIMENSIONS LVDd 4.6 (3.8-5.7cm) LA (2D) 4.9 (1.9-4.0cm) Aortic Root 4.9 (2.0-3.7cm) LVDs 2.8 (2.5-4.0cm) LA (MM) (1.9-4.0cm) Aortic Cusp Exc (1.5-2.0cm) EF (%) 70.0 (55-70%) Rt. Atrium (1.9-4.0cm) Asc. Aorta cm IVSd 1.3 (0.7-1.1cm) RV (D) (1.8-2.4cm) Mitral Valve Mitral Mitral Stenosis E/A ratio 0.0 2D MVA cm2 Aortic Valve Aortic Valve Aortic Stenosis V1 1.11m/s AO Mean GR. 17mmHg V2 2.66m/s AO Peak GR. 28mmHg LVOT Diameter 2.1 (1.8-2.4cm) Doppler SHIRIN 1.44cm2 2D SHIRIN 1.77cm2 AI P 1/2 Time 266.65ms Other Information Quality : Technically Limited Rhythm : Technically limited study due to body habitus. Conclusion 1-Normal left ventricle systolic function with estimated ejection fraction of 70%. Normal LV wall motion. Normal right ventricle size with borderline low systolic function 2-Left atrial dilatation 3-Moderate calcified aortic stenosis Mild mitral and tricuspid regurgitation 4-Moderate aortic root dilatation diameter 4.9 cm, may consider CTA for further evaluation if clinically correlated
[2025-08-19] MEDS ORDERED: PPN PER PHARMACY 0 ML IV SCH (16:15)
--- NOTE | 2025-08-19 16:40 | DVHPN2 ---
Progress Note Date Seen: Aug 19, 2025 Medical Necessity Reason Pt with a Central, PICC or Fol: No Subjective Review of Systems: CVS:Normal, RESPIRATORY:Normal Objective vital signs Vital Sign Date Time Temp Pulse Resp B/P (MAP) Pulse Ox O2 Delivery O2 Flow Rate FiO2 08/19/25 12:58 98.1 104 18 145/81 (102) 95 98.1 08/19/25 09:48 Room Air 0.0 08/19/25 09:48 21 Total Intake and Output 08/18/25 08/18/25 08/19/25 15:00 23:00 07:00 Intake Total 0 ml 0 ml Output Total 250 ml Balance 0 ml -250 ml medications Current Medications Medications Dose Ordered Sig/Jason Route Start Time Stop Time Status Last Admin Dose Admin Acetaminophen/ Hydrocodone Bitart 1 tab Q4HP PRN PO 08/18/25 09:00 Ondansetron HCl 4 mg Q4HP PRN IV 08/18/25 09:00 Docusate Sodium 100 mg BIDPRN PRN PO 08/18/25 09:00 08/18/25 10:23 100 MG Acetaminophen 650 mg Q6HP PRN PO 08/18/25 09:00 08/18/25 10:34 650 MG Hydralazine HCl 10 mg Q6HP PRN IV 08/18/25 11:45 Pantoprazole Sodium 40 mg DAILY IV 08/18/25 11:45 08/19/25 09:40 40 MG Ipratropium [place] 0.5 mg Q4HPRN PRN NEB 08/18/25 11:45 08/19/25 09:48 0.5 MG Sodium Chloride 1,000 ml @ 125 mls/hr Q8H IV 08/18/25 17:45 08/19/25 09:40 125 MLS/HR Amino Acids 0 ml @ 0 mls/hr PER PHARMACY IV 08/19/25 16:15 UNV Enoxaparin Sodium 80 mg Q12HR SC 08/19/25 22:00 Examination: GENERAL:Normal, LUNGS:Normal, CVS:Normal, ABDOMEN:Normal, SKIN:Normal laboratory and microbiology Laboratory Tests 08/19/25 05:36 Test 08/19/25 05:36 Range/Units Serum Glucose 112 H 74-106 mg/dL Labs and/or images reviewed: Labs reviewed by me, Image(s) reviewed by me Problem List/Assessment/Plan Problem List/Assessment/Plan Small Bowel Obstruction Assessment: Patient admitted for abdominal pain related to high grade small bowel obstruction. Surgery was consulted and placed patient on PPN. Surgeon is concerned with ileus versus colonic volvulus. Patient has been receiving Go- Lightly via NG tube and Fleet enemas with reported improvement in abdominal pain. GI consultation recommended surgical intervention. Plan: - Continue PPN - Continue Go-Lightly via NG tube - Continue Fleet enemas - Surgical intervention as recommended by GI Hyperlipidemia Assessment: Patient has hyperlipidemia requiring monitoring. Plan: - Monitor hyperlipidemia COPD with Chronic Respiratory Failure Assessment: Patient has COPD with chronic respiratory failure requiring ongoing respiratory support. Plan: - Continue supplemental oxygen - Continue purine treatments - Continue home oxygen Paroxysmal Atrial Fibrillation Assessment: Patient has paroxysmal atrial fibrillation requiring anticoagulation. Plan: - Place on full-dose Lovenox - Continue full-dose Lovenox for chronic anticoagulation Plan discussed with: Patient My Orders My Orders Orders - KONRAD ROCKWELL Procedure Category Date Status Time Enoxaparin Sodium PHA 08/19/25 In Process (Lovenox) 22:00 Date of Service: Aug 19, 2025 Billing Provider: RICA HELLER MD Common Visit Codes: [id number] INP/OBS CARE (MOD) KONRAD ROCKWELL Aug 19, 2025 16:40
[2025-08-19] MEDS ORDERED: DEXTROSE (50%) 50ML SYRG IV SCH (17:00)
[2025-08-19] MEDS: FLEET ENEMA(ADULT) 135 ML PR ONE (17:03)
[2025-08-19] MEDS: ACCU-CHEK COMFORT CURVE STRIP VI SCH (17:33)
[2025-08-19] MEDS: InsuLIN REG 1unit/0.01ml Soln (100units/ml) SC SCH (17:33)
[2025-08-19 18:22] LABS: Magnesium 2.8 mg/dL (1.6-2.6)
[2025-08-19] MEDS: AMINO ACID INFUSION IN D10W 1,000 ML IV SCH (21:44)
[2025-08-19] MEDS: ENOXAPARIN SOD 80 MG/0.8ML SYRINGE SC SCH (21:45)
[2025-08-20] VITALS (14 sets, daily range): BP systolic 130–160; BP diastolic 77–91; PULSE 91–123; RESP 12–20; TEMP 97.1–98.4; O2SAT 95–100
[2025-08-20] MEDS: hydrALAZINE HCL 20 MG/ML VL IV PRN (05:15)
[2025-08-20 07:20] LABS: Hematocrit 35.5 % (41.0-53.0); Hemoglobin 11.3 g/dL (13.5-17.5); Mean Corpuscular Hemoglobin 24.4 pg (28.0-32.0); Mean Corpuscular Volume 76.6 fL (80.0-100.0); Nucleated Red Blood Cells % 0.1 %
[2025-08-20 08:47] LABS: Alanine Aminotransferase 15 U/L (7-40); Albumin 3.8 g/dL (3.2-4.8); Alkaline Phosphatase 165 U/L (46-116); Anion Gap 11 (5-15); BUN/Creatinine Ratio 12.1 (10.0-20.0); Blood Urea Nitrogen 13 mg/dL (9-23); Calcium 9.6 mg/dL (8.7-10.4); Carbon Dioxide 27 mmol/L (20-31); Chloride 99 mmol/L (98-107); Glucose 110 mg/dL (74-106); Magnesium 2.5 mg/dL (1.6-2.6); Potassium 4.6 mmol/L (3.5-5.1); Sodium 137 mmol/L (136-145); Total Protein 6.4 g/dL (5.7-8.2); Triglycerides 86 mg/dL (< 150)
[2025-08-20 08:48] LABS: Bilirubin, Total 0.4 mg/dL (0.2-1.0)
--- NOTE | 2025-08-20 09:44 | DVH ---
INDICATION: colonic obstruction vs ileus TECHNIQUE: XY KUB ABDOMEN SINGLE VIEWXY Comparison: 08/19/2025 FINDINGS/IMPRESSION: Nasogastric tube tip projects towards stomach with tip projecting near the proximal stomach / gastric fundal region. Multiple loops of abnormally dilated large bowel up to 12 cm which could be secondary to obstruction, pseudo-obstruction, severe ileus. Correlate clinically. Overall this appears similar to previous examination. Left abdominal calcification measuring 4 cm and 3.1 cm Pelvic vascular phleboliths. Right hip arthroplasty. Left femur intramedullary speedy, intertrochanteric screw.
[2025-08-20] MEDS: FLEET ENEMA(ADULT) 135 ML PR ONE (10:17)
[2025-08-20] MEDS ORDERED: fentaNYL CITRATE 100 MCG/2 ML VL ONE (10:26)
[2025-08-20] MEDS: ALBUMIN 5% 250 ML IV ONE (10:30)
[2025-08-20] MEDS ORDERED: MIDAZOLAM HCL 2MG/2ML 2ml VIAL (1mg/ml) ONE (10:32)
[2025-08-20] MEDS: ceFAZolin 1GM/50ML 100 ML IV ONE (11:19)
[2025-08-20] MEDS ORDERED: HYDROmorphone HCL 2 MG/ML VL/or syr ONE (11:44)
[2025-08-20] MEDS: ACETAMINOPHEN IV 100 ML IV ONE (13:43)
[2025-08-20] MEDS ORDERED: ONDANSETRON HCL 4 MG/2 ML VIAL IV PRN (13:45)
[2025-08-20] MEDS ORDERED: HYDROmorphone HCL 2 MG/ML VL/or syr IV PRN ×3 (13:45→22:30)
[2025-08-20] MEDS: ACETAMINOPHEN IV 1000 MG/100ML (10MG/ML) IV ONE (13:45)
--- NOTE | 2025-08-20 13:55 | DVHOP2 ---
Operative Report - 2 Report Details Date: 08/20/25 Preop Diagnosis: 1. High-grade colonic obstruction possibly from volvulus Postop Diagnosis: 1. High-grade colonic obstruction secondary to volvulus Surgeon: Preeti Reeves MD Fire Crew Worker: None Anesthesiologist: Ishan Wilcox CRNA Anesthesia: General Drains: None Consent: The surgery and its risks including but not limited to infection, bleeding requiring possible blood transfusion with the risk of hepatitis or HIV infection, possible perioperative PA or stroke were explained to the patient and his son. All questions were answered to their satisfaction. The patient expressed verbal understanding and wished to proceed with the surgery. Complications: None Estimated Blood Loss: 100 mL Fluids: 500 mL of LR +250 mL of 5% albumin Findings: Extremely dilated cecum, ascending colon and transverse colon secondary to volvulus Name of Procedure Performed Exploratory laparotomy with reduction of volvulus of the hepatic flexure right colectomy and ileostomy with colonic mucous fistula Procedure Details Procedure Details: After induction of general anesthesia, patient's abdomen was prepped and draped in standard surgical fashion. A generous midline incision was made over the previous incisional scar. Incision extended through the abdominal wall down to the linea alba which was then opened using electrocautery. Peritoneum was then divided gaining access to the intra-abdominal cavity. There was diffuse distention of the small intestine from the mid jejunum all the way down to the ileocecal region with extensive distention of the cecum, ascending and transverse colon secondary to a volvulus at the hepatic flexure. The volvulus was then manually reduced which resulted in a very tortuous and dilated right colon. Due to concern for possible recurrence, right colectomy was performed by mobilized in the right colon medially by taking down the white line of [place] extending from the right lower quadrant up around the hepatic flexure to the proximal transverse colon. Linear DELMY staplers were used to staple and divide the proximal transverse colon preserving the mid colic vessels. In similar fashion DELMY stapler was used to staple and divide the terminal ileum. The mesentery of the mesocolon was then divided using a LigaSure impact device and specimen was then sent off to pathology in two separate pieces appropriately marked with sutures. A circular incision was made in the left lower quadrant for the ileostomy site. Incision extended to the fascia where a cruciate incision was made wide enough to fit least to my fingers in easily. The ileal stump and the colonic stump were both brought through the left lower quadrant ileostomy site without twisting of the mesentery. Abdominal cavity was then irrigated with over 2 L of warm irrigation. Midline fascia was then closed using running looped 0 PDS sutures with interrupted 1. Vicryl sutures. Surgical site was irrigated and skin incision was then closed using lavern. The ileostomy was then matured using 2-0 and 3-0 Vicryl sutures as well as the colonic mucous fistula which was incorporated into the site. The mucosa appeared viable without signs of ischemia. There was wide opening in both the colonic mucous fistula as well as the ileostomy without narrowing at the fascial level. Surgical site was cleaned and dried and dressings were applied. Sponge, needle, instrument count at the end of the case were reported to be correct by t nursing staff. The patient tolerated procedure well and was awakened, extubated and transferred to recovery in stable condition. Specimen: Right colon Condition Guarded Disposition Still a Patient PREETI REEVES MD Aug 20, 2025 13:55
[2025-08-20] MEDS: HYDROmorphone HCL 2 MG/ML VL/or syr IV PRN (14:15)
--- NOTE | 2025-08-20 14:31 | DVHPN2 ---
Progress Note Date Seen: Aug 20, 2025 Medical Necessity Reason Pt with a Central, PICC or Fol: No Subjective Review of Systems: CVS:Normal, RESPIRATORY:Normal, GI:Normal Objective vital signs Vital Sign Date Time Temp Pulse Resp B/P (MAP) Pulse Ox O2 Delivery O2 Flow Rate FiO2 08/20/25 14:19 165/78 08/20/25 14:15 105 19 08/20/25 09:36 100 08/20/25 09:28 Nasal Cannula* 2 28 08/20/25 08:56 98.4 98.4 Total Intake and Output 08/19/25 08/19/25 08/20/25 15:00 23:00 07:00 Intake Total 0 ml 0 ml Output Total 525 ml 510 ml Balance -525 ml -510 ml medications Current Medications Medications Dose Ordered Sig/Jason Route Start Time Stop Time Status Last Admin Dose Admin Ondansetron HCl 4 mg Q4HP PRN IV 08/18/25 09:00 Docusate Sodium 100 mg BIDPRN PRN PO 08/18/25 09:00 08/18/25 10:23 100 MG Acetaminophen 650 mg Q6HP PRN PO 08/18/25 09:00 08/18/25 10:34 650 MG Hydralazine HCl 10 mg Q6HP PRN IV 08/18/25 11:45 08/20/25 14:19 10 MG Ipratropium [place] 0.5 mg Q4HPRN PRN NEB 08/18/25 11:45 08/20/25 09:28 0.5 MG Amino Acids 0 ml @ 0 mls/hr PER PHARMACY IV 08/19/25 16:15 Amino Acids/ Electrolytes/ Dextrose 1,000 ml @ 41 mls/hr DAILY@2200 IV 08/19/25 22:00 08/20/25 21:59 08/19/25 21:44 41 MLS/HR Diagnostic Test (Pha) 1 strip Q6HR 08/19/25 18:00 08/20/25 05:24 1 STRIP Insulin Human Regular FOLLOW SLIDING SCALE Q6HR SC 08/19/25 18:00 Dextrose 50 ml UD IV 08/19/25 17:00 Fat Emulsion Intravenous 50 ml/ Sodium Chloride 10 meq/Potassium Phosphate 10 meq/ Multivitamins 10 ml/Chromium/ Copper/Manganese/ Zinc 1 ml/Amino Acids/Dextrose/ Purified Water 3,671.7768 ml @ 53 mls/hr [id number] IV 08/20/25 22:00 08/21/25 21:59 Sodium Chloride 1,000 ml @ 100 mls/hr Q10H IV 08/20/25 13:45 Piperacillin Sod/ Tazobactam Sod 100 ml @ 25 mls/hr Q8HR IV 08/20/25 14:00 Pantoprazole Sodium 40 mg DAILY IV 08/21/25 10:00 Examination: GENERAL:Normal, LUNGS:Normal, CVS:Normal, ABDOMEN:Normal, SKIN:Normal, NEURO:Normal laboratory and microbiology Laboratory Tests 08/20/25 06:15 Test 08/20/25 06:15 Range/Units Serum Glucose 110 H 74-106 mg/dL Labs and/or images reviewed: Labs reviewed by me, Image(s) reviewed by me Problem List/Assessment/Plan Problem List/Assessment/Plan The patient underwent exploratory laparoscopy with reduction of volvulus of the hepatic flexure, right colectomy, and ileostomy with colonic mucous fistula performed by Dr. Reeves. The surgical findings revealed dilated cecum, ascending colon, and transverse colon secondary to volvulus. The patient is continuing with surgical management for the small bowel obstruction and will start diet as per the general surgeon's recommendations. Small Bowel Obstruction Assessment: KUB demonstrated multiple loops of abnormally dilated large bowel up to 12 centimeters, consistent with obstruction, pseudo-obstruction, or severe ileus. Surgical exploration revealed volvulus of the hepatic flexure with dilated cecum, ascending colon, and transverse colon. Patient underwent exploratory laparoscopy with reduction of volvulus, right colectomy, and ileostomy with colonic mucous fistula creation. Plan: - Continue with surgical management - Start diet as per general surgeon recommendations Paroxysmal Atrial Fibrillation Assessment: Patient has known paroxysmal atrial fibrillation requiring anticoagulation. Plan: - Continue full-dose Lovenox COPD with Chronic Respiratory Failure Assessment: Patient has chronic obstructive pulmonary disease with chronic respiratory failure requiring supplemental oxygen therapy. Plan: - Continue home oxygen therapy Hyperlipidemia Assessment: Patient has hyperlipidemia requiring ongoing monitoring. Plan: - Continue to monitor Plan discussed with: Patient Dietary Evaluation Review Comments: Assessment: Patient is NPO due to GI procedures. At risk for inadequate energy and protein intake. Estimated needs: 6799-3520 kcal/day, 80-101 g protein/day. Diagnosis (PES): Inadequate oral intake related to NPO status as evidenced by need for parenteral nutrition support to meet estimated requirements. Intervention: Initiate TPN per pharmacy protocol to provide: Energy: 6106-7794 kcal/day Protein: 80-101 g/day Maintain NPO until medically cleared. Offer Jose BID to promote healing of his foot wound when Pt is able to take PO clear liquids. Monitoring/Evaluation: Reassess nutrition plan after GI procedures completed. Monitor: GI consult reports Updated lab values (electrolytes, renal function, glucose) Reassess PRN based on clinical status and tolerance. Expected Outcomes/Goals: Advance to PO diet when bowel obstruction resolved and medically feasible Date of Service: Aug 20, 2025 Billing Provider: RICA HELLER MD Common Visit Codes: [id number] INP/OBS CARE (MOD) KONRAD ROCKWELL [employer]ION SPECIALIST Aug 20, 2025 14:31
[2025-08-20] MEDS: PIPERACILLIN-TAZOB 3.375GM 100 ML IV SCH (14:59)
[2025-08-20] MEDS: SODIUM CHLORIDE 0.9% 1,000 ML IV SCH (15:00)
[2025-08-20] MEDS: LIDOCAINE 1% (LOCAL ANESTH.) PF 5ml SDV ID PRN (15:15)
--- NOTE | 2025-08-20 20:32 | DVH ---
EXAM: XY CHEST XRAY 1 VIEW HISTORY: ng tube placement verification TECHNIQUE: 1 view of the chest COMPARISON: XY CHEST XRAY 1 VIEW on DOS: 08/18/25 FINDINGS/IMPRESSION: LUNGS: No pleural effusion, consolidation, or pneumothorax. Low lung volumes, which cause crowding of the bronchovascular markings. MEDIASTINUM: Unremarkable. BONES: No acute osseous abnormality. OTHER: Enteric tube extending into the proximal stomach. Significant gas bowel distention similar to prior examination in the upper abdomen. Consider advancement of the enteric tube of at least 5 cm. Partial visualization of right-sided PICC line with distal tip of the inferior right atrium
[2025-08-20] MEDS: SODIUM CHLOR 0.9% PF (SALINE LOCK) 10ML VIAL/SYR IV SCH (21:43)
[2025-08-20] MEDS: METOPROLOL TARTRATE 1MG/1ML-5ML VIAL IV SCH (22:01)
[2025-08-20] MEDS ORDERED: MORPHINE SULFATE 4 MG/ML SYR/VIAL IV PRN (22:30)
--- NOTE | 2025-08-20 23:06 | DVH ---
CHEST RADIOGRAPH INDICATION: chest xray ng tube advance TECHNIQUE: Single frontal view of the chest was obtained COMPARISON: XY CHEST XRAY 1 VIEW on DOS: 08/20/25, XY CHEST XRAY 1 VIEW on DOS: 08/18/25, XY CHEST XRAY 1 VIEW on DOS: 08/18/25, XY CHEST XRAY 1 VIEW on DOS: 08/18/25, XY CHEST PORTABLE on DOS: 08/18/25 FINDINGS: NG tube in the mid stomach. Cardiac silhouette is borderline in size. No overt pulmonary edema. Lungs and pleural spaces are generally clear apart from mild bibasilar atelectasis. IMPRESSION: NG tube in the mid stomach.
[2025-08-21] VITALS (9 sets, daily range): BP systolic 123–156; BP diastolic 71–90; PULSE 68–107; RESP 16–18; TEMP 97.2–100.8; O2SAT 92–97
[2025-08-21] MEDS: MORPHINE SULFATE 4 MG/ML SYR/VIAL IV PRN (03:46)
[2025-08-21] MEDS: SODIUM CHLORIDE 0.9% 1,000 ML IV SCH ×2 (05:38→09:15)
[2025-08-21 06:19] LABS: Alanine Aminotransferase 13 U/L (7-40); Albumin 3.2 g/dL (3.2-4.8); Alkaline Phosphatase 108 U/L (46-116); Anion Gap 7 (5-15); BUN/Creatinine Ratio 13.7 (10.0-20.0); Blood Urea Nitrogen 16 mg/dL (9-23); Calcium 8.8 mg/dL (8.7-10.4); Carbon Dioxide 26 mmol/L (20-31); Chloride 102 mmol/L (98-107); Magnesium 2.1 mg/dL (1.6-2.6); Potassium 4.9 mmol/L (3.5-5.1)
[2025-08-21 06:20] LABS: Bilirubin, Total 0.6 mg/dL (0.2-1.0)
[2025-08-21 06:26] LABS: Glucose 150 mg/dL (74-106); Sodium 135 mmol/L (136-145); Total Protein 5.3 g/dL (5.7-8.2)
[2025-08-21 07:18] LABS: Hemoglobin 11.7 g/dL (13.5-17.5)
[2025-08-21 07:20] LABS: Hematocrit 36.7 % (41.0-53.0); Mean Corpuscular Hemoglobin 24.5 pg (28.0-32.0); Mean Corpuscular Volume 77.3 fL (80.0-100.0); Nucleated Red Blood Cells % 0.1 %
--- NOTE | 2025-08-21 09:33 | DVHPN2 ---
Progress Note - Dictate Date Seen: Aug 21, 2025 Medical Necessity Reason Pt with a Central, PICC or Fol: No Subjective E: no major events o/n. feels better than yesterday. vital signs Vital Sign Date Time Temp Pulse Resp B/P (MAP) Pulse Ox O2 Delivery O2 Flow Rate FiO2 08/21/25 05:43 104 18 131/72 08/21/25 05:00 98.0 96 98.0 08/21/25 01:00 2.0 08/20/25 20:25 Nasal Cannula 08/20/25 20:25 28 Total Intake and Output 08/20/25 08/20/25 08/21/25 15:00 23:00 07:00 Intake Total 200 ml 0 ml 0 ml Output Total 200 ml 580 ml Balance 200 ml -200 ml -580 ml medications Current Medications Medications Dose Ordered Sig/Jason Route Start Time Stop Time Status Last Admin Dose Admin Ondansetron HCl 4 mg Q4HP PRN IV 08/18/25 09:00 Hydralazine HCl 10 mg Q6HP PRN IV 08/18/25 11:45 08/20/25 14:19 10 MG Ipratropium [place] 0.5 mg Q4HPRN PRN NEB 08/18/25 11:45 08/20/25 09:28 0.5 MG Amino Acids 0 ml @ 0 mls/hr PER PHARMACY IV 08/19/25 16:15 Diagnostic Test (Pha) 1 strip Q6HR 08/19/25 18:00 08/21/25 05:36 1 STRIP Insulin Human Regular FOLLOW SLIDING SCALE Q6HR SC 08/19/25 18:00 08/20/25 23:48 4 UNITS Dextrose 50 ml UD IV 08/19/25 17:00 Fat Emulsion Intravenous 50 ml/ Sodium Chloride 10 meq/Potassium Phosphate 10 meq/ Multivitamins 10 ml/Chromium/ Copper/Manganese/ Zinc 1 ml/Amino Acids/Dextrose/ Purified Water 1,265.7727 ml @ 53 mls/hr [id number] IV 08/20/25 22:00 08/21/25 21:59 08/20/25 21:42 53 MLS/HR Piperacillin Sod/ Tazobactam Sod 100 ml @ 25 mls/hr Q8HR IV 08/20/25 14:00 08/21/25 05:32 25 MLS/HR Pantoprazole Sodium 40 mg DAILY IV 08/21/25 10:00 Lidocaine HCl 0.5 ml ONCE PRN ID 08/20/25 16:15 08/20/25 15:15 0.5 ML Sodium Chloride 10 ml QSHIFT@10,22 IV 08/20/25 22:00 08/20/25 21:43 10 ML Metoprolol Tartrate 5 mg BID IV 08/20/25 22:00 08/20/25 22:01 5 MG Morphine Sulfate 2 mg Q4HPRN PRN IV 08/20/25 22:45 08/21/25 03:46 2 MG Sodium Chloride 1,000 ml @ 50 mls/hr Q20H IV 08/21/25 09:15 objective GEN: NAD ABD: ostomy intact. bag replaced after output. laboratory and microbiology Laboratory Tests 08/21/25 05:31 Test 08/21/25 05:31 Range/Units Serum Glucose 150 H 74-106 mg/dL Assessment/Plan A: 1. s/p ex lap with right colectomy with ileostomy/MF POD #1 for colonic volvulus P: 1. cont curr tx 2. dc grewal Dietary Evaluation Review Comments: Assessment: Patient is NPO due to GI procedures. At risk for inadequate energy and protein intake. Estimated needs: 6194-6732 kcal/day, 80-101 g protein/day. Diagnosis (PES): Inadequate oral intake related to NPO status as evidenced by need for parenteral nutrition support to meet estimated requirements. Intervention: Initiate TPN per pharmacy protocol to provide: Energy: 3069-8602 kcal/day Protein: 80-101 g/day Maintain NPO until medically cleared. Offer Jose BID to promote healing of his foot wound when Pt is able to take PO clear liquids. Monitoring/Evaluation: Reassess nutrition plan after GI procedures completed. Monitor: GI consult reports Updated lab values (electrolytes, renal function, glucose) Reassess PRN based on clinical status and tolerance. Expected Outcomes/Goals: Advance to PO diet when bowel obstruction resolved and medically feasible Plan discussed with: Patient PREETI BARBOZA MD Aug 21, 2025 09:33
[2025-08-21] MEDS: PANTOPRAZOLE 40 MG/10 ML VIAL INJ IV SCH (10:16)
--- NOTE | 2025-08-21 10:34 | DVHPN2 ---
Progress Note Date Seen: Aug 21, 2025 Medical Necessity Reason Pt with a Central, PICC or Fol: No Subjective Review of Systems: CVS:Normal, RESPIRATORY:Normal, GI:Normal, NEURO:Normal Objective vital signs Vital Sign Date Time Temp Pulse Resp B/P (MAP) Pulse Ox O2 Delivery O2 Flow Rate FiO2 08/21/25 10:24 106 130/78 08/21/25 05:43 18 08/21/25 05:00 98.0 96 98.0 08/21/25 01:00 2.0 08/20/25 20:25 Nasal Cannula 08/20/25 20:25 28 Total Intake and Output 08/20/25 08/20/25 08/21/25 15:00 23:00 07:00 Intake Total 200 ml 0 ml 0 ml Output Total 200 ml 580 ml Balance 200 ml -200 ml -580 ml medications Current Medications Medications Dose Ordered Sig/Jason Route Start Time Stop Time Status Last Admin Dose Admin Ondansetron HCl 4 mg Q4HP PRN IV 08/18/25 09:00 Hydralazine HCl 10 mg Q6HP PRN IV 08/18/25 11:45 08/20/25 14:19 10 MG Ipratropium [place] 0.5 mg Q4HPRN PRN NEB 08/18/25 11:45 08/20/25 09:28 0.5 MG Amino Acids 0 ml @ 0 mls/hr PER PHARMACY IV 08/19/25 16:15 Diagnostic Test (Pha) 1 strip Q6HR 08/19/25 18:00 08/21/25 05:36 1 STRIP Insulin Human Regular FOLLOW SLIDING SCALE Q6HR SC 08/19/25 18:00 08/20/25 23:48 4 UNITS Dextrose 50 ml UD IV 08/19/25 17:00 Fat Emulsion Intravenous 50 ml/ Sodium Chloride 10 meq/Potassium Phosphate 10 meq/ Multivitamins 10 ml/Chromium/ Copper/Manganese/ Zinc 1 ml/Amino Acids/Dextrose/ Purified Water 1,265.7727 ml @ 53 mls/hr [id number] IV 08/20/25 22:00 08/21/25 21:59 08/20/25 21:42 53 MLS/HR Piperacillin Sod/ Tazobactam Sod 100 ml @ 25 mls/hr Q8HR IV 08/20/25 14:00 08/21/25 05:32 25 MLS/HR Pantoprazole Sodium 40 mg DAILY IV 08/21/25 10:00 08/21/25 10:16 40 MG Lidocaine HCl 0.5 ml ONCE PRN ID 08/20/25 16:15 08/20/25 15:15 0.5 ML Sodium Chloride 10 ml QSHIFT@10,22 IV 08/20/25 22:00 08/20/25 21:43 10 ML Metoprolol Tartrate 5 mg BID IV 08/20/25 22:00 08/21/25 10:24 5 MG Morphine Sulfate 2 mg Q4HPRN PRN IV 08/20/25 22:45 08/21/25 03:46 2 MG Sodium Chloride 1,000 ml @ 50 mls/hr Q20H IV 08/21/25 09:15 08/21/25 09:15 50 MLS/HR Examination: GENERAL:Normal, LUNGS:Normal, CVS:Normal, ABDOMEN:Normal, SKIN:Normal laboratory and microbiology Laboratory Tests 08/21/25 05:31 Test 08/21/25 05:31 Range/Units Serum Glucose 150 H 74-106 mg/dL Labs and/or images reviewed: Labs reviewed by me, Image(s) reviewed by me Problem List/Assessment/Plan Problem List/Assessment/Plan Mr. Ferrera is a patient with multiple medical comorbidities including hyperlipidemia, COPD with chronic respiratory failure, and paroxysmal atrial fibrillation who recently underwent surgical intervention for bowel obstruction. The patient was found to have multiple loops of abnormally dilated large bowel up to 12 centimeters on KUB imaging, which was concerning for obstruction, pseudo-obstruction, or severe ileus. He was taken to the operating room where he underwent exploratory laparoscopy with reduction of volvulus of the hepatic flexure, right colectomy, and ileostomy with colonic mucous fistula. Intraoperatively, he was found to have dilated cecum, ascending colon, and transverse colon secondary to volvulus. Post-operatively, the patient is currently on total parenteral nutrition through a PICC line and is being kept NPO per general surgery recommendations. He is noted to be mildly anemic with a hemoglobin of 11.7. Colonic volvulus with bowel obstruction Assessment: Patient presented with large bowel obstruction secondary to volvulus of the hepatic flexure. KUB demonstrated multiple loops of abnormally dilated large bowel up to 12 centimeters consistent with obstruction, pseudo- obstruction, or severe ileus. Surgical exploration revealed dilated cecum, ascending colon and transverse colon secondary to volvulus. Patient underwent exploratory laparoscopy with reduction of volvulus, right colectomy and ileostomy with colonic mucous fistula. Plan: - Continue surgical management as directed by general surgeon - Maintain NPO status per general surgery - Continue TPN via PICC line - Start diet as per general surgeon recommendations Mild anemia Assessment: Patient is mildly anemic with hemoglobin of 11.7, likely related to recent surgical intervention and underlying medical conditions. Plan: - Monitor hemoglobin levels - Await return of bowel function Hyperlipidemia Assessment: Stable hyperlipidemia requiring ongoing monitoring. Plan: - Continue to monitor COPD with chronic respiratory failure Assessment: Stable COPD with chronic respiratory failure requiring supplemental oxygen therapy. Plan: - Continue with home oxygen Paroxysmal atrial fibrillation Assessment: Stable paroxysmal atrial fibrillation requiring anticoagulation. Plan: - Continue with full-dose Lovenox Plan discussed with: Patient My Orders My Orders Orders - KONRAD ROCKWELL Procedure Category Date Status Time Tpn Per Pharmacy DEANNA 08/21/25 In Process 10:22 * Picc Line Consult CONS 08/21/25 Transmitted 10:22 Dietary Evaluation Review Comments: Assessment: Patient is NPO due to GI procedures. At risk for inadequate energy and protein intake. Estimated needs: 3422-2152 kcal/day, 80-101 g protein/day. Diagnosis (PES): Inadequate oral intake related to NPO status as evidenced by need for parenteral nutrition support to meet estimated requirements. Intervention: Initiate TPN per pharmacy protocol to provide: Energy: 7812-9808 kcal/day Protein: 80-101 g/day Maintain NPO until medically cleared. Offer Jose BID to promote healing of his foot wound when Pt is able to take PO clear liquids. Monitoring/Evaluation: Reassess nutrition plan after GI procedures completed. Monitor: GI consult reports Updated lab values (electrolytes, renal function, glucose) Reassess PRN based on clinical status and tolerance. Expected Outcomes/Goals: Advance to PO diet when bowel obstruction resolved and medically feasible Date of Service: Aug 21, 2025 Billing Provider: RICA HELLER MD Common Visit Codes: [id number] INP/OBS CARE (MOD) KONRAD ROCKWELL Aug 21, 2025 10:34
[2025-08-21] MEDS ORDERED: TPN PER PHARMACY 0 ML IV SCH (11:45)
[2025-08-21] MEDS ORDERED: ROCURONIUM 10MG/ML 10ML VIAL IV ONE (13:19)
[2025-08-21] MEDS ORDERED: ETOMIDATE (2MG/ML) 10ML VIAL IV ONE (13:19)
[2025-08-21] MEDS: ACETAMINOPHEN 650 MG RECT SUPP PR PRN (18:46)
[2025-08-21] MEDS: TPN PER PHARMACY IV NR (21:35)
[2025-08-22] VITALS (11 sets, daily range): BP systolic 92–132; BP diastolic 65–78; PULSE 64–106; RESP 17–20; TEMP 97.8–98.8; O2SAT 93–99
[2025-08-22 07:47] LABS: Alanine Aminotransferase 12 U/L (7-40); Alkaline Phosphatase 92 U/L (46-116); Anion Gap 7 (5-15); BUN/Creatinine Ratio 16.1 (10.0-20.0); Blood Urea Nitrogen 18 mg/dL (9-23); Calcium 8.9 mg/dL (8.7-10.4); Carbon Dioxide 29 mmol/L (20-31); Chloride 100 mmol/L (98-107); Magnesium 2.1 mg/dL (1.6-2.6); Potassium 4.2 mmol/L (3.5-5.1); Sodium 136 mmol/L (136-145)
[2025-08-22 07:48] LABS: Bilirubin, Total 0.4 mg/dL (0.2-1.0)
[2025-08-22 07:59] LABS: Albumin 3.2 g/dL (3.2-4.8); Glucose 128 mg/dL (74-106); Total Protein 5.1 g/dL (5.7-8.2)
--- NOTE | 2025-08-22 11:16 | DVHPN2 ---
Progress Note - Dictate Date Seen: Aug 22, 2025 Medical Necessity Reason Pt with a Central, PICC or Fol: No Subjective E: no major events o/n. patient pulled out NGT this am. denies abd pain. vital signs Vital Sign Date Time Temp Pulse Resp B/P (MAP) Pulse Ox O2 Delivery O2 Flow Rate FiO2 08/22/25 10:01 94 113/72 08/22/25 09:00 97.8 20 95 97.8 08/22/25 08:17 Nasal Cannula* 4 36 Total Intake and Output 08/21/25 08/21/25 08/22/25 15:00 23:00 07:00 Intake Total 100 ml 100 ml 0 ml Balance 100 ml 100 ml 0 ml medications Current Medications Medications Dose Ordered Sig/Jason Route Start Time Stop Time Status Last Admin Dose Admin Ondansetron HCl 4 mg Q4HP PRN IV 08/18/25 09:00 Hydralazine HCl 10 mg Q6HP PRN IV 08/18/25 11:45 08/20/25 14:19 10 MG Ipratropium [place] 0.5 mg Q4HPRN PRN NEB 08/18/25 11:45 08/20/25 09:28 0.5 MG Diagnostic Test (Pha) 1 strip Q6HR 08/19/25 18:00 08/22/25 06:22 1 STRIP Insulin Human Regular FOLLOW SLIDING SCALE Q6HR SC 08/19/25 18:00 08/21/25 11:55 2 UNITS Dextrose 50 ml UD IV 08/19/25 17:00 Piperacillin Sod/ Tazobactam Sod 100 ml @ 25 mls/hr Q8HR IV 08/20/25 14:00 08/22/25 06:13 25 MLS/HR Pantoprazole Sodium 40 mg DAILY IV 08/21/25 10:00 08/22/25 10:00 40 MG Lidocaine HCl 0.5 ml ONCE PRN ID 08/20/25 16:15 08/20/25 15:15 0.5 ML Sodium Chloride 10 ml QSHIFT@ IV 08/20/25 22:00 08/22/25 10:01 10 ML Metoprolol Tartrate 5 mg BID IV 08/20/25 22:00 08/22/25 10:01 5 MG Morphine Sulfate 2 mg Q4HPRN PRN IV 08/20/25 22:45 08/21/25 20:31 2 MG Sodium Chloride 1,000 ml @ 50 mls/hr Q20H IV 08/21/25 09:15 08/21/25 09:15 50 MLS/HR Amino Acids 0 ml @ 0 mls/hr PER PHARMACY IV 08/21/25 11:45 Fat Emulsion Intravenous 100 ml/Sodium Chloride 20 meq/ Sodium Acetate 10 meq/Sodium Phosphate 10 meq/ Calcium Gluconate 1.65 meq/ Magnesium Sulfate 8 meq/ Multivitamins 10 ml/Chromium/ Copper/Manganese/ Zinc 1 ml/Amino Acids/Dextrose 1,129.0483 ml @ 47 mls/hr Q24H2M IV 08/21/25 22:00 08/22/25 21:59 08/21/25 21:35 47 MLS/HR Acetaminophen 650 mg Q6HP PRN [place] 08/21/25 18:30 08/21/25 18:46 650 MG Fat Emulsion Intravenous 150 ml/Sodium Chloride 20 meq/ Sodium Phosphate 40 meq/Potassium Chloride 10 meq/ Calcium Gluconate 1.65 meq/ Magnesium Sulfate 8 meq/ Multivitamins 10 ml/Chromium/ Copper/Manganese/ Zinc 1 ml/Amino Acids/Dextrose 1,386.5483 ml @ 58 mls/hr [id number] IV 08/22/25 22:00 08/23/25 21:59 objective GEN: NAD ABD: surgical dressing clean and dry. ostomy viable with scant stool. laboratory and microbiology Laboratory Tests 08/22/25 06:40 08/21/25 05:31 Test 08/22/25 06:40 Range/Units Serum Glucose 128 H 74-106 mg/dL Assessment/Plan A: 1. s/p ex lap with right colectomy with ileostomy/MF POD #2 for colonic volvulus with obstruction P: 1. ambulate Dietary Evaluation Review Comments: Assessment: Patient is NPO due to GI procedures. At risk for inadequate energy and protein intake. Estimated needs: 7881-6208 kcal/day, 80-101 g protein/day. Diagnosis (PES): Inadequate oral intake related to NPO status as evidenced by need for parenteral nutrition support to meet estimated requirements. Intervention: Initiate TPN per pharmacy protocol to provide: Energy: 0652-1269 kcal/day Protein: 80-101 g/day Maintain NPO until medically cleared. Offer Jose BID to promote healing of his foot wound when Pt is able to take PO clear liquids. Monitoring/Evaluation: Reassess nutrition plan after GI procedures completed. Monitor: GI consult reports Updated lab values (electrolytes, renal function, glucose) Reassess PRN based on clinical status and tolerance. Expected Outcomes/Goals: Advance to PO diet when bowel obstruction resolved and medically feasible Plan discussed with: Patient PREETI BARBOZA MD Aug 22, 2025 11:16
--- NOTE | 2025-08-22 13:13 | DVHPN2 ---
Progress Note - Dictate Date Seen: Aug 22, 2025 Medical Necessity Reason Pt with a Central, PICC or Fol: No vital signs Vital Sign Date Time Temp Pulse Resp B/P (MAP) Pulse Ox O2 Delivery O2 Flow Rate FiO2 08/22/25 11:01 90 114/65 08/22/25 09:00 97.8 20 95 97.8 08/22/25 08:17 Nasal Cannula* 4 36 Total Intake and Output 08/21/25 08/21/25 08/22/25 14:59 22:59 06:59 Intake Total 100 ml 100 ml 0 ml Balance 100 ml 100 ml 0 ml medications Current Medications Medications Dose Ordered Sig/Jason Route Start Time Stop Time Status Last Admin Dose Admin Ondansetron HCl 4 mg Q4HP PRN IV 08/18/25 09:00 Hydralazine HCl 10 mg Q6HP PRN IV 08/18/25 11:45 08/20/25 14:19 10 MG Ipratropium [place] 0.5 mg Q4HPRN PRN NEB 08/18/25 11:45 08/20/25 09:28 0.5 MG Diagnostic Test (Pha) 1 strip Q6HR 08/19/25 18:00 08/22/25 12:05 1 STRIP Insulin Human Regular FOLLOW SLIDING SCALE Q6HR SC 08/19/25 18:00 08/21/25 11:55 2 UNITS Dextrose 50 ml UD IV 08/19/25 17:00 Piperacillin Sod/ Tazobactam Sod 100 ml @ 25 mls/hr Q8HR IV 08/20/25 14:00 08/22/25 06:13 25 MLS/HR Pantoprazole Sodium 40 mg DAILY IV 08/21/25 10:00 08/22/25 10:00 40 MG Lidocaine HCl 0.5 ml ONCE PRN ID 08/20/25 16:15 08/20/25 15:15 0.5 ML Sodium Chloride 10 ml QSHIFT@ IV 08/20/25 22:00 08/22/25 10:01 10 ML Metoprolol Tartrate 5 mg BID IV 08/20/25 22:00 08/22/25 10:01 5 MG Morphine Sulfate 2 mg Q4HPRN PRN IV 08/20/25 22:45 08/21/25 20:31 2 MG Sodium Chloride 1,000 ml @ 50 mls/hr Q20H IV 08/21/25 09:15 08/21/25 09:15 50 MLS/HR Amino Acids 0 ml @ 0 mls/hr PER PHARMACY IV 08/21/25 11:45 Fat Emulsion Intravenous 100 ml/Sodium Chloride 20 meq/ Sodium Acetate 10 meq/Sodium Phosphate 10 meq/ Calcium Gluconate 1.65 meq/ Magnesium Sulfate 8 meq/ Multivitamins 10 ml/Chromium/ Copper/Manganese/ Zinc 1 ml/Amino Acids/Dextrose 1,129.0483 ml @ 47 mls/hr Q24H2M IV 08/21/25 22:00 08/22/25 21:59 08/21/25 21:35 47 MLS/HR Acetaminophen 650 mg Q6HP PRN [place] 08/21/25 18:30 08/22/25 12:21 650 MG Fat Emulsion Intravenous 150 ml/Sodium Chloride 20 meq/ Sodium Phosphate 40 meq/Potassium Chloride 10 meq/ Calcium Gluconate 1.65 meq/ Magnesium Sulfate 8 meq/ Multivitamins 10 ml/Chromium/ Copper/Manganese/ Zinc 1 ml/Amino Acids/Dextrose 1,386.5483 ml @ 58 mls/hr [id number] IV 08/22/25 22:00 08/23/25 21:59 objective General Appearance: alert, no distress HEENT: EOMI, PERRLA, normal external inspect of ears, no icterus, no nasal drainage Neck: no carotid bruit, no jugular venous distention (JVD), no lymphadenopathy Chest: normal thorax Respiratory: clear to auscultation, normal air movement Cardiovascular: regular rate and rhythm, no diastolic murmur, no jugular venous distention (JVD), no rub, no systolic murmur Abdominal: soft, no hepatomegaly, no mass, no splenomegaly, no tenderness Genitourinary: grossly normal external Musculoskeletal: no joint tenderness, no swelling Extremities: normal pulses, no calf tenderness, no clubbing, no cyanosis, no edema Skin: no bruising, no jaundice, no rash Neurological: alert, No focal deficit laboratory and microbiology Laboratory Tests 08/22/25 06:40 08/21/25 05:31 Test 08/22/25 06:40 Range/Units Serum Glucose 128 H 74-106 mg/dL Problem List 1. 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 Hyperlipidemia Continue antihyperlidemic medication 3. Paroxysmal A-fib Monitor on EKG, continue full dose anticoagulation Assessment/Plan Subjective: Patient is awake and alert. Objective: Patient was admitted for colonic volvulus with bowel obstruction. Patient was seen by surgeon Dr. Reeves. Patient is postoperative day 2 status post colectomy and ileostomy. Ostomy is producing stool. Patient is ambulating today. Patient apparently pulled out his NG tube. Patient states he is passing flatus. Plan: Monitor ostomy site. Continue current treatment. Encourage ambulation. Possible discharge plan for tomorrow. Discharge planning. Dietary Evaluation Review Comments: Assessment: Patient is NPO due to GI procedures. At risk for inadequate energy and protein intake. Estimated needs: 5492-3019 kcal/day, 80-101 g protein/day. Diagnosis (PES): Inadequate oral intake related to NPO status as evidenced by need for parenteral nutrition support to meet estimated requirements. Intervention: Initiate TPN per pharmacy protocol to provide: Energy: 9642-3392 kcal/day Protein: 80-101 g/day Maintain NPO until medically cleared. Offer Jose BID to promote healing of his foot wound when Pt is able to take PO clear liquids. Monitoring/Evaluation: Reassess nutrition plan after GI procedures completed. Monitor: GI consult reports Updated lab values (electrolytes, renal function, glucose) Reassess PRN based on clinical status and tolerance. Expected Outcomes/Goals: Advance to PO diet when bowel obstruction resolved and medically feasible Plan discussed with: Patient, Other TETO CRAMER BRASS POURER Aug 22, 2025 13:13
--- NOTE | 2025-08-22 18:49 | DVHPN2 ---
Progress Note - Dictate Date Seen: Aug 22, 2025 Medical Necessity Reason Pt with a Central, PICC or Fol: No Subjective Postop day 2. 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 Pulled out NG tube, no nausea vomiting or abdominal pain vital signs Vital Sign Date Time Temp Pulse Resp B/P (MAP) Pulse Ox O2 Delivery O2 Flow Rate FiO2 08/22/25 16:53 98.8 106 18 92/66 (75) 98 98.8 08/22/25 08:17 Nasal Cannula* 4 36 Total Intake and Output 08/21/25 08/21/25 08/22/25 15:00 23:00 07:00 Intake Total 100 ml 100 ml 0 ml Balance 100 ml 100 ml 0 ml medications Current Medications Medications Dose Ordered Sig/Jason Route Start Time Stop Time Status Last Admin Dose Admin Ondansetron HCl 4 mg Q4HP PRN IV 08/18/25 09:00 Hydralazine HCl 10 mg Q6HP PRN IV 08/18/25 11:45 08/20/25 14:19 10 MG Ipratropium [place] 0.5 mg Q4HPRN PRN NEB 08/18/25 11:45 08/20/25 09:28 0.5 MG Diagnostic Test (Pha) 1 strip Q6HR 08/19/25 18:00 08/22/25 17:55 1 STRIP Insulin Human Regular FOLLOW SLIDING SCALE Q6HR SC 08/19/25 18:00 08/21/25 11:55 2 UNITS Dextrose 50 ml UD IV 08/19/25 17:00 Piperacillin Sod/ Tazobactam Sod 100 ml @ 25 mls/hr Q8HR IV 08/20/25 14:00 08/22/25 14:42 25 MLS/HR Pantoprazole Sodium 40 mg DAILY IV 08/21/25 10:00 08/22/25 10:00 40 MG Lidocaine HCl 0.5 ml ONCE PRN ID 08/20/25 16:15 08/20/25 15:15 0.5 ML Sodium Chloride 10 ml QSHIFT@10,22 IV 08/20/25 22:00 08/22/25 10:01 10 ML Metoprolol Tartrate 5 mg BID IV 08/20/25 22:00 08/22/25 10:01 5 MG Morphine Sulfate 2 mg Q4HPRN PRN IV 08/20/25 22:45 08/21/25 20:31 2 MG Sodium Chloride 1,000 ml @ 50 mls/hr Q20H IV 08/21/25 09:15 08/21/25 09:15 50 MLS/HR Amino Acids 0 ml @ 0 mls/hr PER PHARMACY IV 08/21/25 11:45 Fat Emulsion Intravenous 100 ml/Sodium Chloride 20 meq/ Sodium Acetate 10 meq/Sodium Phosphate 10 meq/ Calcium Gluconate 1.65 meq/ Magnesium Sulfate 8 meq/ Multivitamins 10 ml/Chromium/ Copper/Manganese/ Zinc 1 ml/Amino Acids/Dextrose 1,129.0483 ml @ 47 mls/hr Q24H2M IV 08/21/25 22:00 08/22/25 21:59 08/21/25 21:35 47 MLS/HR Acetaminophen 650 mg Q6HP PRN [place] 08/21/25 18:30 08/22/25 12:21 650 MG Fat Emulsion Intravenous 150 ml/Sodium Chloride 20 meq/ Sodium Phosphate 40 meq/Potassium Chloride 10 meq/ Calcium Gluconate 1.65 meq/ Magnesium Sulfate 8 meq/ Multivitamins 10 ml/Chromium/ Copper/Manganese/ Zinc 1 ml/Amino Acids/Dextrose 1,386.5483 ml @ 58 mls/hr [id number] IV 08/22/25 22:00 08/23/25 21:59 objective GEN: NAD ABD: surgical dressing clean and dry. ostomy viable with scant stool laboratory and microbiology Laboratory Tests 08/22/25 06:40 08/21/25 05:31 Test 08/22/25 06:40 Range/Units Serum Glucose 128 H 74-106 mg/dL Problems(with codes): (1) N&V (nausea and vomiting) (2) INTESTINAL OBSTRUCT NOS (3) CHRONIC DIASTOLIC HRT FAILURE (4) CHR PULMON HEART DIS NEC Prognosis Plan Keep NPO, IV fluid hydration, IV TPN Broad-spectrum antibiotics and pain control Physical therapy Dietary Evaluation Review Comments: Assessment: Patient is NPO due to GI procedures. At risk for inadequate energy and protein intake. Estimated needs: 1655-9253 kcal/day, 80-101 g protein/day. Diagnosis (PES): Inadequate oral intake related to NPO status as evidenced by need for parenteral nutrition support to meet estimated requirements. Intervention: Initiate TPN per pharmacy protocol to provide: Energy: 9968-2164 kcal/day Protein: 80-101 g/day Maintain NPO until medically cleared. Offer Jose BID to promote healing of his foot wound when Pt is able to take PO clear liquids. Monitoring/Evaluation: Reassess nutrition plan after GI procedures completed. Monitor: GI consult reports Updated lab values (electrolytes, renal function, glucose) Reassess PRN based on clinical status and tolerance. Expected Outcomes/Goals: Advance to PO diet when bowel obstruction resolved and medically feasible Plan discussed with: Other (Nurse) SRINIVASAN ALVARES MD Aug 22, 2025 18:49
[2025-08-22] MEDS: TPN PER PHARMACY IV NR (22:47)
[2025-08-23] VITALS (9 sets, daily range): BP systolic 125–145; BP diastolic 67–91; PULSE 70–98; RESP 18–20; TEMP 98.1–99.4; O2SAT 92–100
[2025-08-23 06:44] LABS: Hemoglobin 11.1 g/dL (13.5-17.5)
[2025-08-23 06:45] LABS: Hematocrit 34.4 % (41.0-53.0); Mean Corpuscular Hemoglobin 24.5 pg (28.0-32.0); Mean Corpuscular Volume 75.8 fL (80.0-100.0); Nucleated Red Blood Cells % 0.0 %
[2025-08-23 07:24] LABS: Alanine Aminotransferase 13 U/L (7-40); Albumin 3.3 g/dL (3.2-4.8); Alkaline Phosphatase 84 U/L (46-116); Anion Gap 9 (5-15); BUN/Creatinine Ratio 17.6 (10.0-20.0); Blood Urea Nitrogen 18 mg/dL (9-23); Calcium 8.8 mg/dL (8.7-10.4); Carbon Dioxide 27 mmol/L (20-31); Magnesium 1.9 mg/dL (1.6-2.6)
[2025-08-23 07:25] LABS: Bilirubin, Total 0.4 mg/dL (0.2-1.0)
[2025-08-23 07:27] LABS: Chloride 100 mmol/L (98-107); Glucose 130 mg/dL (74-106); Potassium 4.6 mmol/L (3.5-5.1); Sodium 136 mmol/L (136-145); Total Protein 5.5 g/dL (5.7-8.2)
--- NOTE | 2025-08-23 09:00 | DVHPN2 ---
Progress Note - Dictate Date Seen: Aug 23, 2025 Medical Necessity Reason Pt with a Central, PICC or Fol: No Subjective E: no major events o/n. no complaints. vital signs Vital Sign Date Time Temp Pulse Resp B/P (MAP) Pulse Ox O2 Delivery O2 Flow Rate FiO2 08/23/25 05:00 98.1 98 18 125/67 (86) 98 98.1 08/22/25 20:01 Nasal Cannula 4.0 08/22/25 20:01 36 Total Intake and Output 08/22/25 08/22/25 08/23/25 15:00 23:00 07:00 Intake Total 100 ml 1181 ml 1114 ml Output Total 575 ml Balance 100 ml 1181 ml 539 ml medications Current Medications Medications Dose Ordered Sig/Jason Route Start Time Stop Time Status Last Admin Dose Admin Ondansetron HCl 4 mg Q4HP PRN IV 08/18/25 09:00 Hydralazine HCl 10 mg Q6HP PRN IV 08/18/25 11:45 08/20/25 14:19 10 MG Ipratropium [place] 0.5 mg Q4HPRN PRN NEB 08/18/25 11:45 08/20/25 09:28 0.5 MG Diagnostic Test (Pha) 1 strip Q6HR 08/19/25 18:00 08/23/25 06:41 1 STRIP Insulin Human Regular FOLLOW SLIDING SCALE Q6HR SC 08/19/25 18:00 08/23/25 06:41 2 UNITS Dextrose 50 ml UD IV 08/19/25 17:00 Piperacillin Sod/ Tazobactam Sod 100 ml @ 25 mls/hr Q8HR IV 08/20/25 14:00 08/22/25 22:48 25 MLS/HR Pantoprazole Sodium 40 mg DAILY IV 08/21/25 10:00 08/22/25 10:00 40 MG Lidocaine HCl 0.5 ml ONCE PRN ID 08/20/25 16:15 08/20/25 15:15 0.5 ML Sodium Chloride 10 ml QSHIFT@10,22 IV 08/20/25 22:00 08/22/25 22:48 10 ML Metoprolol Tartrate 5 mg BID IV 08/20/25 22:00 08/22/25 22:48 5 MG Morphine Sulfate 2 mg Q4HPRN PRN IV 08/20/25 22:45 08/21/25 20:31 2 MG Sodium Chloride 1,000 ml @ 50 mls/hr Q20H IV 08/21/25 09:15 08/21/25 09:15 50 MLS/HR Amino Acids 0 ml @ 0 mls/hr PER PHARMACY IV 08/21/25 11:45 Acetaminophen 650 mg Q6HP PRN [place] 08/21/25 18:30 08/22/25 12:21 650 MG Fat Emulsion Intravenous 150 ml/Sodium Chloride 20 meq/ Sodium Phosphate 40 meq/Potassium Chloride 10 meq/ Calcium Gluconate 1.65 meq/ Magnesium Sulfate 8 meq/ Multivitamins 10 ml/Chromium/ Copper/Manganese/ Zinc 1 ml/Amino Acids/Dextrose 1,386.5483 ml @ 58 mls/hr [id number] IV 08/22/25 22:00 08/23/25 21:59 08/22/25 22:47 58 MLS/HR objective GEN: NAD ABD: surgical incision clean and healing well. ileostomy functioning well. laboratory and microbiology Laboratory Tests 08/23/25 05:56 Test 08/23/25 05:56 Range/Units Serum Glucose 130 H 74-106 mg/dL Assessment/Plan A: 1. s/p ex lap with right colectomy with ileostomy/MF POD #3 for colonic volvulus with obstruction P: 1. full liquid diet. Dietary Evaluation Review Comments: Assessment: Patient is NPO due to GI procedures. At risk for inadequate energy and protein intake. Estimated needs: 3327-0700 kcal/day, 80-101 g protein/day. Diagnosis (PES): Inadequate oral intake related to NPO status as evidenced by need for parenteral nutrition support to meet estimated requirements. Intervention: Initiate TPN per pharmacy protocol to provide: Energy: 8956-0077 kcal/day Protein: 80-101 g/day Maintain NPO until medically cleared. Offer Jose BID to promote healing of his foot wound when Pt is able to take PO clear liquids. Monitoring/Evaluation: Reassess nutrition plan after GI procedures completed. Monitor: GI consult reports Updated lab values (electrolytes, renal function, glucose) Reassess PRN based on clinical status and tolerance. Expected Outcomes/Goals: Advance to PO diet when bowel obstruction resolved and medically feasible Plan discussed with: Patient PREETI BARBOZA MD Aug 23, 2025 09:00
--- NOTE | 2025-08-23 11:47 | DVHPN2 ---
Progress Note - Dictate Date Seen: Aug 23, 2025 Medical Necessity Reason Pt with a Central, PICC or Fol: No vital signs Vital Sign Date Time Temp Pulse Resp B/P (MAP) Pulse Ox O2 Delivery O2 Flow Rate FiO2 08/23/25 11:33 78 147/75 08/23/25 08:59 98.6 20 100 98.6 08/23/25 07:58 Nasal Cannula* 3 32 Total Intake and Output 08/22/25 08/22/25 08/23/25 15:00 23:00 07:00 Intake Total 100 ml 1181 ml 1114 ml Output Total 575 ml Balance 100 ml 1181 ml 539 ml medications Current Medications Medications Dose Ordered Sig/Jason Route Start Time Stop Time Status Last Admin Dose Admin Ondansetron HCl 4 mg Q4HP PRN IV 08/18/25 09:00 Hydralazine HCl 10 mg Q6HP PRN IV 08/18/25 11:45 08/20/25 14:19 10 MG Ipratropium [place] 0.5 mg Q4HPRN PRN NEB 08/18/25 11:45 08/20/25 09:28 0.5 MG Diagnostic Test (Pha) 1 strip Q6HR 08/19/25 18:00 08/23/25 06:41 1 STRIP Insulin Human Regular FOLLOW SLIDING SCALE Q6HR SC 08/19/25 18:00 08/23/25 06:41 2 UNITS Dextrose 50 ml UD IV 08/19/25 17:00 Piperacillin Sod/ Tazobactam Sod 100 ml @ 25 mls/hr Q8HR IV 08/20/25 14:00 08/22/25 22:48 25 MLS/HR Pantoprazole Sodium 40 mg DAILY IV 08/21/25 10:00 08/23/25 11:32 40 MG Lidocaine HCl 0.5 ml ONCE PRN ID 08/20/25 16:15 08/20/25 15:15 0.5 ML Sodium Chloride 10 ml QSHIFT@10,22 IV 08/20/25 22:00 08/23/25 10:00 10 ML Metoprolol Tartrate 5 mg BID IV 08/20/25 22:00 08/23/25 11:33 5 MG Morphine Sulfate 2 mg Q4HPRN PRN IV 08/20/25 22:45 08/21/25 20:31 2 MG Sodium Chloride 1,000 ml @ 50 mls/hr Q20H IV 08/21/25 09:15 08/21/25 09:15 50 MLS/HR Amino Acids 0 ml @ 0 mls/hr PER PHARMACY IV 08/21/25 11:45 Acetaminophen 650 mg Q6HP PRN [place] 08/21/25 18:30 08/22/25 12:21 650 MG Fat Emulsion Intravenous 150 ml/Sodium Chloride 20 meq/ Sodium Phosphate 40 meq/Potassium Chloride 10 meq/ Calcium Gluconate 1.65 meq/ Magnesium Sulfate 8 meq/ Multivitamins 10 ml/Chromium/ Copper/Manganese/ Zinc 1 ml/Amino Acids/Dextrose 1,386.5483 ml @ 58 mls/hr [id number] IV 08/22/25 22:00 08/23/25 21:59 08/22/25 22:47 58 MLS/HR Fat Emulsion Intravenous 200 ml/Sodium Chloride 40 meq/ Sodium Phosphate 40 meq/Calcium Gluconate 2.3 meq/ Magnesium Sulfate 12 meq/ Multivitamins 10 ml/Chromium/ Copper/Manganese/ Zinc 1 ml/Amino Acids/Dextrose 1,638.9462 ml @ 68 mls/hr Q24H7M IV 08/23/25 22:00 08/24/25 21:59 objective General Appearance: alert, no distress HEENT: EOMI, PERRLA, normal external inspect of ears, no icterus, no nasal drainage Neck: no carotid bruit, no jugular venous distention (JVD), no lymphadenopathy Chest: normal thorax Respiratory: clear to auscultation, normal air movement Cardiovascular: regular rate and rhythm, no diastolic murmur, no jugular venous distention (JVD), no rub, no systolic murmur Abdominal: soft, no hepatomegaly, no mass, no splenomegaly, no tenderness Genitourinary: grossly normal external Musculoskeletal: no joint tenderness, no swelling Extremities: normal pulses, no calf tenderness, no clubbing, no cyanosis, no edema Skin: no bruising, no jaundice, no rash Neurological: alert, No focal deficit laboratory and microbiology Laboratory Tests 08/23/25 05:56 Test 08/23/25 05:56 Range/Units Serum Glucose 130 H 74-106 mg/dL Problem List 1. 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 Hyperlipidemia Continue antihyperlidemic medication 3. Paroxysmal A-fib Monitor on EKG, continue full dose anticoagulation Assessment/Plan Subjective: Patient is awake and alert. Objective: Patient was admitted for colonic volvulus. Patient is status post colectomy and ileostomy done by Dr. Reeves. Today is postop day 3. Patient has been ambulating and he was seen by physical therapy. Patient has a history of COPD. He uses home O2. No signs of respiratory distress while hospitalized. Patient has a history of hyperlipidemia. He was restarted on his Lipitor. Patient has a history of paroxysmal A-fib. He is currently being monitored on the telemetry floor. Patient has mild anemia and he is having daily CBCs. No active signs or symptoms of acute bleeding. There was some weeping noted at surgical site. Patient's diet was advanced to full liquid diet. Plan: Patient to continue to ambulate. Ileostomy shows brown stool. Possible advancement to soft diet tomorrow. warehouse worker was consulted for home health and colostomy care. Dietary Evaluation Review Comments: Assessment: Patient is NPO due to GI procedures. At risk for inadequate energy and protein intake. Estimated needs: 7122-6620 kcal/day, 80-101 g protein/day. Diagnosis (PES): Inadequate oral intake related to NPO status as evidenced by need for parenteral nutrition support to meet estimated requirements. Intervention: Initiate TPN per pharmacy protocol to provide: Energy: 0573-8493 kcal/day Protein: 80-101 g/day Maintain NPO until medically cleared. Offer Jose BID to promote healing of his foot wound when Pt is able to take PO clear liquids. Monitoring/Evaluation: Reassess nutrition plan after GI procedures completed. Monitor: GI consult reports Updated lab values (electrolytes, renal function, glucose) Reassess PRN based on clinical status and tolerance. Expected Outcomes/Goals: Advance to PO diet when bowel obstruction resolved and medically feasible Plan discussed with: Patient, Other SHOAIBTETO M [employer]ELD IRON[employer] Aug 23, 2025 11:47
[2025-08-23] MEDS: LORATADINE 10 MG TAB PO ONE (17:31)
--- NOTE | 2025-08-23 22:38 | DVHPN2 ---
Progress Note - Dictate Date Seen: Aug 23, 2025 Medical Necessity Reason Pt with a Central, PICC or Fol: No Subjective Postop day 3. 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 Pulled out NG tube, no nausea vomiting or abdominal pain, colostomy is functional Patient is awake alert on the phone discussing his taxes vital signs Vital Sign Date Time Temp Pulse Resp B/P (MAP) Pulse Ox O2 Delivery O2 Flow Rate FiO2 08/23/25 21:14 98.9 93 18 145/78 (100) 99 98.9 08/23/25 19:55 Nasal Cannula* 4 36 Total Intake and Output 08/22/25 08/22/25 08/23/25 15:00 23:00 07:00 Intake Total 100 ml 1181 ml 1114 ml Output Total 575 ml Balance 100 ml 1181 ml 539 ml medications Current Medications Medications Dose Ordered Sig/Jason Route Start Time Stop Time Status Last Admin Dose Admin Ondansetron HCl 4 mg Q4HP PRN IV 08/18/25 09:00 Hydralazine HCl 10 mg Q6HP PRN IV 08/18/25 11:45 08/20/25 14:19 10 MG Diagnostic Test (Pha) 1 strip Q6HR 08/19/25 18:00 08/23/25 17:32 1 STRIP Insulin Human Regular FOLLOW SLIDING SCALE Q6HR SC 08/19/25 18:00 08/23/25 06:41 2 UNITS Dextrose 50 ml UD IV 08/19/25 17:00 Piperacillin Sod/ Tazobactam Sod 100 ml @ 25 mls/hr Q8HR IV 08/20/25 14:00 08/22/25 22:48 25 MLS/HR Pantoprazole Sodium 40 mg DAILY IV 08/21/25 10:00 08/23/25 11:32 40 MG Lidocaine HCl 0.5 ml ONCE PRN ID 08/20/25 16:15 08/20/25 15:15 0.5 ML Sodium Chloride 10 ml QSHIFT@10,22 IV 08/20/25 22:00 08/23/25 10:00 10 ML Metoprolol Tartrate 5 mg BID IV 08/20/25 22:00 08/23/25 11:33 5 MG Morphine Sulfate 2 mg Q4HPRN PRN IV 08/20/25 22:45 08/21/25 20:31 2 MG Sodium Chloride 1,000 ml @ 50 mls/hr Q20H IV 08/21/25 09:15 08/21/25 09:15 50 MLS/HR Amino Acids 0 ml @ 0 mls/hr PER PHARMACY IV 08/21/25 11:45 Acetaminophen 650 mg Q6HP PRN SC 08/21/25 18:30 08/22/25 12:21 650 MG Fat Emulsion Intravenous 200 ml/Sodium Chloride 40 meq/ Sodium Phosphate 40 meq/Calcium Gluconate 2.3 meq/ Magnesium Sulfate 12 meq/ Multivitamins 10 ml/Chromium/ Copper/Manganese/ Zinc 1 ml/Amino Acids/Dextrose 1,638.9462 ml @ 68 mls/hr Q24H7M IV 08/23/25 22:00 08/24/25 21:59 Loratadine 10 mg DAILY PO 08/24/25 10:00 objective GEN: NAD ABD: surgical dressing clean and dry. ostomy viable with scant stool laboratory and microbiology Laboratory Tests 08/23/25 05:56 Test 08/23/25 05:56 Range/Units Serum Glucose 130 H 74-106 mg/dL Problems(with codes): (1) INTESTINAL OBSTRUCT NOS (2) N&V (nausea and vomiting) (3) CHR PULMON HEART DIS NEC Prognosis PLAN Patient to continue to ambulate. Ileostomy shows brown stool. Possible advancement to soft diet tomorrow. sewage disposal worker was consulted for home health and colostomy care. Dietary Evaluation Review Comments: Assessment: Patient is NPO due to GI procedures. At risk for inadequate energy and protein intake. Estimated needs: 4056-8725 kcal/day, 80-101 g protein/day. Diagnosis (PES): Inadequate oral intake related to NPO status as evidenced by need for parenteral nutrition support to meet estimated requirements. Intervention: Initiate TPN per pharmacy protocol to provide: Energy: 7715-9120 kcal/day Protein: 80-101 g/day Maintain NPO until medically cleared. Offer Jose BID to promote healing of his foot wound when Pt is able to take PO clear liquids. Monitoring/Evaluation: Reassess nutrition plan after GI procedures completed. Monitor: GI consult reports Updated lab values (electrolytes, renal function, glucose) Reassess PRN based on clinical status and tolerance. Expected Outcomes/Goals: Advance to PO diet when bowel obstruction resolved and medically feasible Plan discussed with: Patient SRINIVASAN ALVARES MD Aug 23, 2025 22:37
[2025-08-23] MEDS: TPN PER PHARMACY IV NR (23:06)
[2025-08-24] VITALS (8 sets, daily range): BP systolic 105–149; BP diastolic 62–80; PULSE 18–97; RESP 16–19; TEMP 97.2–97.9; O2SAT 90–100
[2025-08-24 07:21] LABS: Alanine Aminotransferase 23 U/L (7-40); Alkaline Phosphatase 78 U/L (46-116); Anion Gap 4 (5-15); BUN/Creatinine Ratio 21.9 (10.0-20.0); Blood Urea Nitrogen 16 mg/dL (9-23); Carbon Dioxide 28 mmol/L (20-31); Chloride 103 mmol/L (98-107); Magnesium 1.9 mg/dL (1.6-2.6); Potassium 4.9 mmol/L (3.5-5.1)
[2025-08-24 07:30] LABS: Albumin 3.1 g/dL (3.2-4.8); Bilirubin, Total 0.3 mg/dL (0.2-1.0); Calcium 8.6 mg/dL (8.7-10.4); Glucose 129 mg/dL (74-106); Sodium 135 mmol/L (136-145); Total Protein 5.1 g/dL (5.7-8.2)
[2025-08-24] MEDS: LORATADINE 10 MG TAB PO SCH (10:48)
--- NOTE | 2025-08-24 12:35 | DVHPN2 ---
Progress Note - Surgical Date Seen: Aug 24, 2025 Post op day Post op day: 4 Subjective Patient reports: Feels better (Patient feeling well, tolerating diet, ostomy producing, passing stool per rectum also, pain well controlled) Review of Systems: Deferred Objective Vital signs Vital Sign Date Time Temp Pulse Resp B/P (MAP) Pulse Ox O2 Delivery O2 Flow Rate FiO2 08/24/25 10:48 86 146/74 08/24/25 08:47 97.9 17 90 97.9 08/24/25 08:00 Nasal Cannula* 4 36 Total Intake and Output 08/23/25 08/23/25 08/24/25 15:00 23:00 07:00 Intake Total 1654 ml 1876 ml Output Total 225 ml 1270 ml 1500 ml Balance -225 ml 384 ml 376 ml Medications Current Medications Medications Dose Ordered Sig/Jason Route Start Time Stop Time Status Last Admin Dose Admin Ondansetron HCl 4 mg Q4HP PRN IV 08/18/25 09:00 Hydralazine HCl 10 mg Q6HP PRN IV 08/18/25 11:45 08/20/25 14:19 10 MG Piperacillin Sod/ Tazobactam Sod 100 ml @ 25 mls/hr Q8HR IV 08/20/25 14:00 08/22/25 22:48 25 MLS/HR Pantoprazole Sodium 40 mg DAILY IV 08/21/25 10:00 08/24/25 10:48 40 MG Lidocaine HCl 0.5 ml ONCE PRN ID 08/20/25 16:15 08/20/25 15:15 0.5 ML Sodium Chloride 10 ml QSHIFT@10,22 IV 08/20/25 22:00 08/24/25 10:48 10 ML Metoprolol Tartrate 5 mg BID IV 08/20/25 22:00 08/24/25 10:48 5 MG Morphine Sulfate 2 mg Q4HPRN PRN IV 08/20/25 22:45 08/21/25 20:31 2 MG Sodium Chloride 1,000 ml @ 50 mls/hr Q20H IV 08/21/25 09:15 08/23/25 23:05 50 MLS/HR Acetaminophen 650 mg Q6HP PRN [place] 08/21/25 18:30 08/22/25 12:21 650 MG Loratadine 10 mg DAILY PO 08/24/25 10:00 08/24/25 10:48 10 MG Laboratory Laboratory Tests 08/24/25 06:07 08/23/25 05:56 Test 08/24/25 06:07 Range/Units Serum Glucose 129 H 74-106 mg/dL Microbiology Date/Time Source Procedure Growth Status 08/20/25 11:46 Abdomen Gram Stain - Final Resulted 08/20/25 11:46 Abdomen Anaerobic Culture - Preliminary No growth Resulted 08/20/25 11:46 Abdomen Aerobic Culture - Preliminary No growth Resulted Examination: GENERAL:Normal (AAO x3), LUNGS:Normal (Nonlabored breathing with symmetric expansion), ABDOMEN:Normal (Nondistended, soft, depressible, midline incision with lavern in place and without surrounding signs of infection, right ileostomy with pink mucosa and enteric production in bag, appropriate tenderness) Labs and/or images reviewed: Labs reviewed by me (No leukocytosis) Problem List/Assessment/Plan Assessment and Plan Mr. Ferrera is a 75-year-old male who is currently postop day 4 from right colectomy with ileostomy due to ascending colon volvulus. Patient is currently doing very well after the surgery, tolerating diet, ambulating, pain well controlled, producing aldair ileostomy. Patient needs to be weaned off TPN. Given that he is med all surgical criteria for discharge, patient can be discharged home once home health has been set up. 1. Cleared for discharge per surgical standpoint, once home health has been set up 2. Wean TPN 3. Upon discharge: No lifting over 10 lb for 8 weeks, may shower soap and water okay to run over incision sites, no swimming or bathing, for baseline pain control please take Tylenol and/or ibuprofen, patient already on home opioids for chronic pain, no driving while taking narcotics, follow up with Dr. Reeves at surgery Clinic. 4. I will sign off please call with any questions or concerns Plan discussed with Plan discussed with: Patient Visit Coding Surgery Date of Service if different f: Aug 24, 2025 Billing Provider: KEV ACOSTA MD Surgery Visit Codes: [id number] INP/OBS CARE(HIGH) KEV ACOSTA MD Aug 24, 2025 12:34
--- NOTE | 2025-08-24 13:49 | DVHPN2 ---
Progress Note Date Seen: Aug 24, 2025 Medical Necessity Reason Pt with a Central, PICC or Fol: No Subjective Review of Systems: CVS:Normal, RESPIRATORY:Normal, GI:Normal, NEURO:Normal Objective vital signs Vital Sign Date Time Temp Pulse Resp B/P (MAP) Pulse Ox O2 Delivery O2 Flow Rate FiO2 08/24/25 12:32 97.8 88 19 141/79 (99) 99 97.8 08/24/25 08:00 Nasal Cannula* 4 36 Total Intake and Output 08/23/25 08/23/25 08/24/25 15:00 23:00 07:00 Intake Total 1654 ml 1876 ml Output Total 225 ml 1270 ml 1500 ml Balance -225 ml 384 ml 376 ml medications Current Medications Medications Dose Ordered Sig/Jason Route Start Time Stop Time Status Last Admin Dose Admin Ondansetron HCl 4 mg Q4HP PRN IV 08/18/25 09:00 Hydralazine HCl 10 mg Q6HP PRN IV 08/18/25 11:45 08/20/25 14:19 10 MG Piperacillin Sod/ Tazobactam Sod 100 ml @ 25 mls/hr Q8HR IV 08/20/25 14:00 08/24/25 13:36 25 MLS/HR Pantoprazole Sodium 40 mg DAILY IV 08/21/25 10:00 08/24/25 10:48 40 MG Lidocaine HCl 0.5 ml ONCE PRN ID 08/20/25 16:15 08/20/25 15:15 0.5 ML Sodium Chloride 10 ml QSHIFT@10,22 IV 08/20/25 22:00 08/24/25 10:48 10 ML Metoprolol Tartrate 5 mg BID IV 08/20/25 22:00 08/24/25 10:48 5 MG Morphine Sulfate 2 mg Q4HPRN PRN IV 08/20/25 22:45 08/21/25 20:31 2 MG Sodium Chloride 1,000 ml @ 50 mls/hr Q20H IV 08/21/25 09:15 08/23/25 23:05 50 MLS/HR Acetaminophen 650 mg Q6HP PRN [place] 08/21/25 18:30 08/22/25 12:21 650 MG Loratadine 10 mg DAILY PO 08/24/25 10:00 08/24/25 10:48 10 MG Examination: GENERAL:Normal, LUNGS:Normal, CVS:Normal, ABDOMEN:Normal, SKIN:Normal laboratory and microbiology Laboratory Tests 08/24/25 06:07 08/23/25 05:56 Test 08/24/25 06:07 Range/Units Serum Glucose 129 H 74-106 mg/dL Microbiology Date/Time Source Procedure Growth Status 08/20/25 11:46 Abdomen Gram Stain - Final Resulted 08/20/25 11:46 Abdomen Anaerobic Culture - Preliminary No growth Resulted 08/20/25 11:46 Abdomen Aerobic Culture - Preliminary No growth Resulted Labs and/or images reviewed: Labs reviewed by me, Image(s) reviewed by me Problem List/Assessment/Plan Problem List/Assessment/Plan Ferny Ferrera is a patient with multiple medical comorbidities who underwent exploratory laparoscopy with right hemicolectomy and ileostomy for colonic volvulus and is now ready for discharge. 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 Pre-operative imaging showed multiple loops of abnormally dilated large bowel up to 12 centimeters. Intraoperatively, dilated cecum, ascending colon and transverse colon secondary to volvulus were found. Patient is now post-operative with good ileostomy output, tolerating diet, denying abdominal pain, and passing gas. TPN has been discontinued and patient has been medically cleared for discharge. Plan: - Continue diet as per general surgeon - Discharge pending delivery of ostomy supplies and arrangement of home health - Patient cleared for discharge once home health and ostomy supplies arranged Mild anemia Assessment: Patient is mildly anemic with hemoglobin at 11.7, likely related to recent surgical intervention. Plan: - Await return of bowel function Hyperlipidemia Assessment: Ongoing hyperlipidemia requiring continued monitoring. Plan: - Continue to monitor COPD with chronic respiratory failure Assessment: Patient has established COPD with chronic respiratory failure requiring supplemental oxygen therapy. Plan: - Continue with home oxygen Paroxysmal atrial fibrillation Assessment: Patient has paroxysmal atrial fibrillation requiring anticoagulation therapy. Plan: - Continue with full-dose Lovenox Plan discussed with: Patient My Orders My Orders Orders - KONRAD ROCKWELL Procedure Category Date Status Time Tpn Per Pharmacy DEANNA 08/24/25 In Process 22:00 Soft Diet DIET 08/24/25 Transmitted Lunch Discharge DISCHARGE 08/24/25 Transmitted 12:32 Communication Order ORDERS 08/24/25 Transmitted 12:35 Dietary Evaluation Review Comments: Assessment: Patient is NPO due to GI procedures. At risk for inadequate energy and protein intake. Estimated needs: 5488-6940 kcal/day, 80-101 g protein/day. Diagnosis (PES): Inadequate oral intake related to NPO status as evidenced by need for parenteral nutrition support to meet estimated requirements. Intervention: Initiate TPN per pharmacy protocol to provide: Energy: 7925-9072 kcal/day Protein: 80-101 g/day Maintain NPO until medically cleared. Offer Jose BID to promote healing of his foot wound when Pt is able to take PO clear liquids. Monitoring/Evaluation: Reassess nutrition plan after GI procedures completed. Monitor: GI consult reports Updated lab values (electrolytes, renal function, glucose) Reassess PRN based on clinical status and tolerance. Expected Outcomes/Goals: Advance to PO diet when bowel obstruction resolved and medically feasible Date of Service: Aug 24, 2025 Billing Provider: RICA HELLER MD Common Visit Codes: [id number] INP/OBS CARE (MOD) KONRAD ROCKWELL Aug 24, 2025 13:49
--- NOTE | 2025-08-24 18:02 | DVHPN2 ---
Progress Note - Dictate Date Seen: Aug 24, 2025 Medical Necessity Reason Pt with a Central, PICC or Fol: No Subjective Postop day 4. 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 Pulled out NG tube, no nausea vomiting or abdominal pain, colostomy is functional vital signs Vital Sign Date Time Temp Pulse Resp B/P (MAP) Pulse Ox O2 Delivery O2 Flow Rate FiO2 08/24/25 16:36 97.6 86 16 105/62 (76) 100 97.6 08/24/25 08:00 Nasal Cannula* 4 36 Total Intake and Output 08/23/25 08/23/25 08/24/25 15:00 23:00 07:00 Intake Total 1654 ml 1876 ml Output Total 225 ml 1270 ml 1500 ml Balance -225 ml 384 ml 376 ml medications Current Medications Medications Dose Ordered Sig/Jason Route Start Time Stop Time Status Last Admin Dose Admin Ondansetron HCl 4 mg Q4HP PRN IV 08/18/25 09:00 Hydralazine HCl 10 mg Q6HP PRN IV 08/18/25 11:45 08/20/25 14:19 10 MG Piperacillin Sod/ Tazobactam Sod 100 ml @ 25 mls/hr Q8HR IV 08/20/25 14:00 08/24/25 13:36 25 MLS/HR Pantoprazole Sodium 40 mg DAILY IV 08/21/25 10:00 08/24/25 10:48 40 MG Lidocaine HCl 0.5 ml ONCE PRN ID 08/20/25 16:15 08/20/25 15:15 0.5 ML Sodium Chloride 10 ml QSHIFT@10,22 IV 08/20/25 22:00 08/24/25 10:48 10 ML Metoprolol Tartrate 5 mg BID IV 08/20/25 22:00 08/24/25 10:48 5 MG Morphine Sulfate 2 mg Q4HPRN PRN IV 08/20/25 22:45 08/21/25 20:31 2 MG Sodium Chloride 1,000 ml @ 50 mls/hr Q20H IV 08/21/25 09:15 08/23/25 23:05 50 MLS/HR Acetaminophen 650 mg Q6HP PRN [place] 08/21/25 18:30 08/22/25 12:21 650 MG Loratadine 10 mg DAILY PO 08/24/25 10:00 08/24/25 10:48 10 MG objective GEN: NAD ABD: surgical dressing clean and dry. ostomy viable with scant stool laboratory and microbiology Laboratory Tests 08/24/25 06:07 08/23/25 05:56 Test 08/24/25 06:07 Range/Units Serum Glucose 129 H 74-106 mg/dL Problems(with codes): (1) INTESTINAL OBSTRUCT NOS (2) N&V (nausea and vomiting) (3) CHRONIC DIASTOLIC HRT FAILURE Prognosis PLAN Continue diet as per general surgeon Discharge pending delivery of ostomy supplies and arrangement of home health Patient cleared for discharge once home health and ostomy supplies arranged Dietary Evaluation Review Comments: Assessment: Patient is NPO due to GI procedures. At risk for inadequate energy and protein intake. Estimated needs: 2095-7330 kcal/day, 80-101 g protein/day. Diagnosis (PES): Inadequate oral intake related to NPO status as evidenced by need for parenteral nutrition support to meet estimated requirements. Intervention: Initiate TPN per pharmacy protocol to provide: Energy: 9513-0866 kcal/day Protein: 80-101 g/day Maintain NPO until medically cleared. Offer Jose BID to promote healing of his foot wound when Pt is able to take PO clear liquids. Monitoring/Evaluation: Reassess nutrition plan after GI procedures completed. Monitor: GI consult reports Updated lab values (electrolytes, renal function, glucose) Reassess PRN based on clinical status and tolerance. Expected Outcomes/Goals: Advance to PO diet when bowel obstruction resolved and medically feasible Plan discussed with: Patient SRINIVASAN ALVARES MD Aug 24, 2025 18:02
[2025-08-24] MEDS ORDERED: TPN PER PHARMACY IV NR (22:00)
[2025-08-25] VITALS (8 sets, daily range): BP systolic 107–156; BP diastolic 63–84; PULSE 65–93; RESP 16–20; TEMP 97.8–98.8; O2SAT 95–98
[2025-08-25 07:38] LABS: Chloride 106 mmol/L (98-107); Sodium 139 mmol/L (136-145)
[2025-08-25 07:39] LABS: Anion Gap 6 (5-15); Calcium 9.0 mg/dL (8.7-10.4); Carbon Dioxide 27 mmol/L (20-31)
[2025-08-25 07:44] LABS: BUN/Creatinine Ratio 16.9 (10.0-20.0); Blood Urea Nitrogen 15 mg/dL (9-23); Glucose 99 mg/dL (74-106); Hematocrit 28.6 % (41.0-53.0); Hemoglobin 9.0 g/dL (13.5-17.5); Mean Corpuscular Hemoglobin 24.0 pg (28.0-32.0); Mean Corpuscular Volume 76.3 fL (80.0-100.0); Nucleated Red Blood Cells % 0.0 %
[2025-08-25 07:46] LABS: Potassium 5.3 mmol/L (3.5-5.1)
[2025-08-25] MEDS: SODIUM ZIRCONIUM CYCL 10 GM PAK PO ONE (10:17)
--- NOTE | 2025-08-25 12:51 | DVHPN2 ---
Progress Note Date Seen: Aug 25, 2025 Medical Necessity Reason Pt with a Central, PICC or Fol: No Subjective Review of Systems: CVS:Normal, RESPIRATORY:Normal Objective vital signs Vital Sign Date Time Temp Pulse Resp B/P (MAP) Pulse Ox O2 Delivery O2 Flow Rate FiO2 08/25/25 10:18 97 142/84 08/25/25 09:00 97.8 18 97 97.8 08/24/25 20:00 Nasal Cannula* 4 36 Total Intake and Output 08/24/25 08/24/25 08/25/25 15:00 23:00 07:00 Intake Total 2166 ml 1050 ml Output Total 1975 ml 730 ml Balance 191 ml 320 ml medications Current Medications Medications Dose Ordered Sig/Jason Route Start Time Stop Time Status Last Admin Dose Admin Ondansetron HCl 4 mg Q4HP PRN IV 08/18/25 09:00 Hydralazine HCl 10 mg Q6HP PRN IV 08/18/25 11:45 08/20/25 14:19 10 MG Pantoprazole Sodium 40 mg DAILY IV 08/21/25 10:00 08/25/25 10:17 40 MG Lidocaine HCl 0.5 ml ONCE PRN ID 08/20/25 16:15 08/20/25 15:15 0.5 ML Sodium Chloride 10 ml QSHIFT@10,22 IV 08/20/25 22:00 08/25/25 10:17 10 ML Metoprolol Tartrate 5 mg BID IV 08/20/25 22:00 08/25/25 10:18 5 MG Morphine Sulfate 2 mg Q4HPRN PRN IV 08/20/25 22:45 08/24/25 21:16 2 MG Sodium Chloride 1,000 ml @ 50 mls/hr Q20H IV 08/21/25 09:15 08/24/25 18:06 50 MLS/HR Acetaminophen 650 mg Q6HP PRN [place] 08/21/25 18:30 08/22/25 12:21 650 MG Loratadine 10 mg DAILY PO 08/24/25 10:00 08/25/25 10:19 10 MG Examination: GENERAL:Normal, LUNGS:Normal, CVS:Normal, ABDOMEN:Normal, SKIN:Normal laboratory and microbiology Laboratory Tests 08/25/25 07:14 Test 08/25/25 07:14 Range/Units Serum Glucose 99 74-106 mg/dL Microbiology Date/Time Source Procedure Growth Status 08/20/25 11:46 Abdomen Gram Stain - Final Resulted 08/20/25 11:46 Abdomen Anaerobic Culture - Preliminary No growth Resulted 08/20/25 11:46 Abdomen Aerobic Culture - Final Resulted Labs and/or images reviewed: Labs reviewed by me, Image(s) reviewed by me Problem List/Assessment/Plan Problem List/Assessment/Plan Ferny Ferrera is a patient with multiple medical comorbidities who underwent exploratory laparoscopy with right hemicolectomy and ileostomy for colonic volvulus and is now ready for discharge. 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 Pre-operative imaging showed multiple loops of abnormally dilated large bowel up to 12 centimeters. Intraoperatively, dilated cecum, ascending colon and transverse colon secondary to volvulus were found. Patient is now post-operative with good ileostomy output, tolerating diet, denying abdominal pain, and passing gas. TPN has been discontinued and patient has been medically cleared for discharge. Plan: - advanced to cardiac diet - Discharge pending delivery of ostomy supplies and arrangement of home health - Patient cleared for discharge once home health and ostomy supplies arranged Mild anemia Assessment: Patient is mildly anemic with hemoglobin at 11.7, likely related to recent surgical intervention. Plan: - Await return of bowel function Hyperlipidemia Assessment: Ongoing hyperlipidemia requiring continued monitoring. Plan: - Continue to monitor COPD with chronic respiratory failure Assessment: Patient has established COPD with chronic respiratory failure requiring supplemental oxygen therapy. Plan: - Continue with home oxygen Paroxysmal atrial fibrillation Assessment: Patient has paroxysmal atrial fibrillation requiring anticoagulation therapy. Plan: - Continue with full-dose Lovenox Plan discussed with: Patient My Orders My Orders Orders - KONRAD ROCKWELL Procedure Category Date Status Time Cardiac DIET 08/25/25 Transmitted Diet-2gna,Lofat,Lochol Lunch Dietary Evaluation Review Comments: Assessment: Patient is NPO due to GI procedures. At risk for inadequate energy and protein intake. Estimated needs: 4637-2319 kcal/day, 80-101 g protein/day. Diagnosis (PES): Inadequate oral intake related to NPO status as evidenced by need for parenteral nutrition support to meet estimated requirements. Intervention: Initiate TPN per pharmacy protocol to provide: Energy: 1946-8632 kcal/day Protein: 80-101 g/day Maintain NPO until medically cleared. Offer Jose BID to promote healing of his foot wound when Pt is able to take PO clear liquids. Monitoring/Evaluation: Reassess nutrition plan after GI procedures completed. Monitor: GI consult reports Updated lab values (electrolytes, renal function, glucose) Reassess PRN based on clinical status and tolerance. Expected Outcomes/Goals: Advance to PO diet when bowel obstruction resolved and medically feasible Date of Service: Aug 25, 2025 Billing Provider: RICA HELLER MD Common Visit Codes: [id number] INP/OBS CARE (MOD) KONRAD ROCKWELL DERRICK HELPER Aug 25, 2025 12:51
[2025-08-26] VITALS (8 sets, daily range): BP systolic 107–153; BP diastolic 62–87; PULSE 72–102; RESP 17–20; TEMP 97.9–99.6; O2SAT 93–98
--- NOTE | 2025-08-26 13:49 | DVHPN2 ---
Progress Note - Dictate Date Seen: Aug 26, 2025 Medical Necessity Reason Pt with a Central, PICC or Fol: No vital signs Vital Sign Date Time Temp Pulse Resp B/P (MAP) Pulse Ox O2 Delivery O2 Flow Rate FiO2 08/26/25 10:36 100 18 131/67 08/26/25 09:00 98.2 96 98.2 08/25/25 20:00 Nasal Cannula* 4 36 Total Intake and Output 08/25/25 08/25/25 08/26/25 15:00 23:00 07:00 Intake Total 100 ml 300 ml 760 ml Output Total 1700 ml 900 ml Balance 100 ml -1400 ml -140 ml medications Current Medications Medications Dose Ordered Sig/Jason Route Start Time Stop Time Status Last Admin Dose Admin Ondansetron HCl 4 mg Q4HP PRN IV 08/18/25 09:00 Hydralazine HCl 10 mg Q6HP PRN IV 08/18/25 11:45 08/20/25 14:19 10 MG Pantoprazole Sodium 40 mg DAILY IV 08/21/25 10:00 08/26/25 10:29 40 MG Lidocaine HCl 0.5 ml ONCE PRN ID 08/20/25 16:15 08/20/25 15:15 0.5 ML Sodium Chloride 10 ml QSHIFT@10,22 IV 08/20/25 22:00 08/26/25 10:00 10 ML Metoprolol Tartrate 5 mg BID IV 08/20/25 22:00 08/26/25 10:30 5 MG Morphine Sulfate 2 mg Q4HPRN PRN IV 08/20/25 22:45 08/26/25 10:36 2 MG Sodium Chloride 1,000 ml @ 50 mls/hr Q20H IV 08/21/25 09:15 08/26/25 07:01 50 MLS/HR Acetaminophen 650 mg Q6HP PRN [place] 08/21/25 18:30 08/22/25 12:21 650 MG Loratadine 10 mg DAILY PO 08/24/25 10:00 08/26/25 10:31 10 MG objective General Appearance: alert, no distress HEENT: EOMI, PERRLA, normal external inspect of ears, no icterus, no nasal drainage Neck: no carotid bruit, no jugular venous distention (JVD), no lymphadenopathy Chest: normal thorax Respiratory: clear to auscultation, normal air movement Cardiovascular: regular rate and rhythm, no diastolic murmur, no jugular venous distention (JVD), no rub, no systolic murmur Abdominal: soft, no hepatomegaly, no mass, no splenomegaly, no tenderness Genitourinary: grossly normal external Musculoskeletal: no joint tenderness, no swelling Extremities: normal pulses, no calf tenderness, no clubbing, no cyanosis, no edema Skin: no bruising, no jaundice, no rash Neurological: alert, No focal deficit laboratory and microbiology Laboratory Tests 08/25/25 07:14 Test 08/25/25 07:14 Range/Units Serum Glucose 99 74-106 mg/dL Problem List 1. 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 Hyperlipidemia Continue antihyperlidemic medication 3. Paroxysmal A-fib Monitor on EKG, continue full dose anticoagulation Assessment/Plan Subjective Patient is awake and alert. Objective Awaiting home health for ostomy supplies. Patient is currently doing well. Patient was admitted for abdominal pain related to volvulus status post colectomy with ileostomy. Plan Arrange for discharge. Patient will need ostomy supplies and physical therapy. DC planning for tomorrow. Dietary Evaluation Review Comments: Assessment: Patient is NPO due to GI procedures. At risk for inadequate energy and protein intake. Estimated needs: 8760-9279 kcal/day, 80-101 g protein/day. Diagnosis (PES): Inadequate oral intake related to NPO status as evidenced by need for parenteral nutrition support to meet estimated requirements. Intervention: Initiate TPN per pharmacy protocol to provide: Energy: 1262-7820 kcal/day Protein: 80-101 g/day Maintain NPO until medically cleared. Offer Jose BID to promote healing of his foot wound when Pt is able to take PO clear liquids. Monitoring/Evaluation: Reassess nutrition plan after GI procedures completed. Monitor: GI consult reports Updated lab values (electrolytes, renal function, glucose) Reassess PRN based on clinical status and tolerance. Expected Outcomes/Goals: Advance to PO diet when bowel obstruction resolved and medically feasible Plan discussed with: Patient, Other TETO CRAMER BENCH MACHINE OPERATOR Aug 26, 2025 13:49
--- NOTE | 2025-08-26 18:46 | DVHPN2 ---
Progress Note - Dictate Date Seen: Aug 26, 2025 Medical Necessity Reason Pt with a Central, PICC or Fol: No Subjective Postop day 6. 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 Ileostomy is functional, patient has started a regular diet vital signs Vital Sign Date Time Temp Pulse Resp B/P (MAP) Pulse Ox O2 Delivery O2 Flow Rate FiO2 08/26/25 17:00 99.6 80 20 153/87 (109) 96 99.6 08/26/25 08:00 Nasal Cannula* 4 36 Total Intake and Output 08/25/25 08/25/25 08/26/25 15:00 23:00 07:00 Intake Total 100 ml 300 ml 760 ml Output Total 1700 ml 900 ml Balance 100 ml -1400 ml -140 ml medications Current Medications Medications Dose Ordered Sig/Jason Route Start Time Stop Time Status Last Admin Dose Admin Ondansetron HCl 4 mg Q4HP PRN IV 08/18/25 09:00 Hydralazine HCl 10 mg Q6HP PRN IV 08/18/25 11:45 08/20/25 14:19 10 MG Pantoprazole Sodium 40 mg DAILY IV 08/21/25 10:00 08/26/25 10:29 40 MG Lidocaine HCl 0.5 ml ONCE PRN ID 08/20/25 16:15 08/20/25 15:15 0.5 ML Sodium Chloride 10 ml QSHIFT@10,22 IV 08/20/25 22:00 08/26/25 10:00 10 ML Metoprolol Tartrate 5 mg BID IV 08/20/25 22:00 08/26/25 10:30 5 MG Morphine Sulfate 2 mg Q4HPRN PRN IV 08/20/25 22:45 08/26/25 15:46 2 MG Sodium Chloride 1,000 ml @ 50 mls/hr Q20H IV 08/21/25 09:15 08/26/25 07:01 50 MLS/HR Acetaminophen 650 mg Q6HP PRN [place] 08/21/25 18:30 08/22/25 12:21 650 MG Loratadine 10 mg DAILY PO 08/24/25 10:00 08/26/25 10:31 10 MG objective GEN: NAD ABD: surgical dressing clean and dry. ostomy viable with scant stool laboratory and microbiology Laboratory Tests 08/25/25 07:14 Test 08/25/25 07:14 Range/Units Serum Glucose 99 74-106 mg/dL Problems(with codes): (1) INTESTINAL OBSTRUCT NOS (2) CHRONIC DIASTOLIC HRT FAILURE (3) CHR PULMON HEART DIS NEC (4) N&V (nausea and vomiting) Prognosis Plan Continue supportive care Advance diet as tolerated Outpatient follow up with Surgical Services for further surgical management Discharge planning after ostomy supplies and DME is arranged Dietary Evaluation Review Comments: Assessment: Patient is NPO due to GI procedures. At risk for inadequate energy and protein intake. Estimated needs: 6371-7451 kcal/day, 80-101 g protein/day. Diagnosis (PES): Inadequate oral intake related to NPO status as evidenced by need for parenteral nutrition support to meet estimated requirements. Intervention: Initiate TPN per pharmacy protocol to provide: Energy: 8603-9035 kcal/day Protein: 80-101 g/day Maintain NPO until medically cleared. Offer Jose BID to promote healing of his foot wound when Pt is able to take PO clear liquids. Monitoring/Evaluation: Reassess nutrition plan after GI procedures completed. Monitor: GI consult reports Updated lab values (electrolytes, renal function, glucose) Reassess PRN based on clinical status and tolerance. Expected Outcomes/Goals: Advance to PO diet when bowel obstruction resolved and medically feasible Plan discussed with: Patient SRINIVASAN ALVARES MD Aug 26, 2025 18:46
[2025-08-27] VITALS (8 sets, daily range): BP systolic 110–154; BP diastolic 71–87; PULSE 80–91; RESP 17–20; TEMP 98.3–99.6; O2SAT 93–100
[2025-08-27 06:23] LABS: Hematocrit 33.9 % (41.0-53.0); Hemoglobin 10.6 g/dL (13.5-17.5); Mean Corpuscular Hemoglobin 24.1 pg (28.0-32.0); Mean Corpuscular Volume 76.9 fL (80.0-100.0); Nucleated Red Blood Cells % 0.0 %
[2025-08-27 06:36] LABS: Calcium 9.5 mg/dL (8.7-10.4); Chloride 104 mmol/L (98-107); Potassium 5.0 mmol/L (3.5-5.1); Sodium 137 mmol/L (136-145)
[2025-08-27 06:38] LABS: Anion Gap 9 (5-15); Carbon Dioxide 24 mmol/L (20-31)
[2025-08-27 06:43] LABS: BUN/Creatinine Ratio 22.3 (10.0-20.0); Blood Urea Nitrogen 21 mg/dL (9-23)
[2025-08-27 06:53] LABS: Glucose 110 mg/dL (74-106)
--- NOTE | 2025-08-27 13:19 | DVHDS2 ---
Discharge Summary Date of Admission Aug 18, 2025 at 08:54 Date of Discharge: Aug 27, 2025 Labs/Diagnostic Data: Laboratory Results Test 08/27/25 05:32 08/24/25 11:26 08/24/25 06:07 08/20/25 06:15 White Blood Count 7.0 10^3/uL (4.4-10.8) Red Blood Count 4.41 10^6/uL (4.5-5.90) Hemoglobin 10.6 g/dL (13.5-17.5) Hematocrit 33.9 % (41.0-53.0) Mean Corpuscular Volume 76.9 fL (80.0-100.0) Mean Corpuscular Hemoglobin 24.1 pg (28.0-32.0) Mean Corpuscular Hemoglobin Concent 31.4 g/dL (32.0-36.0) Red Cell Distribution Width 21.5 % (11.8-14.3) Platelet Count 218 10^3/uL (140-450) Mean Platelet Volume 8.1 fL (6.9-10.8) Neutrophils (%) (Auto) 72.6 % (37.0-80.0) Lymphocytes (%) (Auto) 13.4 % (10.0-50.0) Monocytes (%) (Auto) 10.8 % (0.0-12.0) Eosinophils (%) (Auto) 3.1 % (0.0-7.0) Basophils (%) (Auto) 0.1 % (0.0-2.0) Neutrophils # (Auto) 5.1 10 ^3/uL (1.6-8.6) Lymphocytes # (Auto) 0.9 10 ^3/uL (0.4-5.4) Monocytes # (Auto) 0.8 10 ^3/uL (0-1.3) Eosinophils # (Auto) 0.2 10 ^3/uL (0-0.8) Basophils # (Auto) 0 10 ^3/uL (0-0.2) Nucleated Red Blood Cells 0.0 % Sodium Level 137 mmol/L (136-145) Potassium Level 5.0 mmol/L (3.5-5.1) Chloride Level 104 mmol/L (98-107) Carbon Dioxide Level 24 mmol/L (20-31) Anion Gap 9 (5-15) Blood Urea Nitrogen 21 mg/dL (9-23) Creatinine 0.94 mg/dL (0.700-1.30) Glomerular Filtration Rate Calc 86 mL/min (>90) BUN/Creatinine Ratio 22.3 (10.0-20.0) Serum Glucose 110 mg/dL (74-106) Calcium Level 9.5 mg/dL (8.7-10.4) POC Glucose 100 mg/dl (70-106) Phosphorus Level 3.0 mg/dL (2.4-5.1) Magnesium Level 1.9 mg/dL (1.6-2.6) Total Bilirubin 0.3 mg/dL (0.2-1.0) Aspartate Amino Transferase (AST) 28 U/L (13-40) Alanine Aminotransferase (ALT) 23 U/L (7-40) Alkaline Phosphatase 78 U/L (46-116) Total Protein 5.1 g/dL (5.7-8.2) Albumin 3.1 g/dL (3.2-4.8) Triglycerides Level 86 mg/dL (< 150) Test 08/19/25 05:36 08/18/25 08:28 Prothrombin Time 10.7 sec (9.3-11.8) Prothrombin Time INR 1.01 (0.9-1.15) Activated Partial Thromboplast Time 26.2 SEC (24.5-34.5) Lipase 24 U/L (12-53) Carcinoembryonic Antigen 5.46 ng/mL (<=5.0) Urine Color Yellow (Yellow) Urine Clarity Turbid (Clear) Urine pH 5.5 (5.0-9.0) Urine Specific [place] 1.026 (1.001-1.035) Urine Protein Trace (Negative) Urine Ketones Negative (Negative) Urine Blood 3+ /uL (Negative) Urine Nitrite Negative (Negative) Urine Bilirubin Negative (Negative) Urine Urobilinogen Normal mg/dL (Negative) Urine Leukocyte Esterase 1+ /uL (Negative) Urine RBC 602 /hpf (0 - 3) Urine Microscopic WBC 12 /HPF (0-3) Urine Squamous Epithelial Cells Few /hpf (<5) Urine Bacteria Few /hpf (None Seen) Urine Hyaline Casts Mod /lpf (0 - 2) Urine Mucus Few (None Seen) Urine Glucose Normal mg/dL (Normal) Other Laboratory Tests 08/27/25 05:32 Brief Hx & Hospital Course: 75 year old male with PMHx a-fib, arthritis, CHD, COPD, HLD, HTN presents to the ED for abdominal pain onset 4 days. Patient has been experiencing diffused abdominal pain as well as constipation for the past 4 days. Patient was admitted on August 18, 2025 for abdominal pain related to colonic volvulus. Patient status post colectomy end ileostomy. Patient's diet was advanced. He was instructed by nursing how to change his ileostomy bag. Home health was set up and patient will follow-up with the [place] outpatient for additional home health services. Ostomy supplies were ordered through [facility] and he was instructed to follow-up with his PCP in 1 week. The patient received proper medical treatment and medications. Vital signs, Imaging and Laboratory Work was monitored daily. All consults recommendations were followed as provided. There were no complaints or new complaints upon discharge, all questions and concerns were answered. Patient was advised to return to the ER or call 911 if any headaches, dizziness, shortness of breath, chest pain, bleeding, fevers, or worsening of medical condition. Patient/Family was counseled about treatment plan, medications, possible side effects, patient verbalized understanding. All questions were answered to the best of my ability. The patient symptoms improved and they are okay to be DC. Condition at Discharge: Stable Final Diagnosis/Problems List 1. 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 Hyperlipidemia Continue antihyperlidemic medication 3. Paroxysmal A-fib Discharge Disposition: Home with Health Services Discharge Instruct/Medications Diet: Consistent carbohydrate Activity: No Restrictions, As Tolerated Follow Up/Referral: PCP within 1 week Scheduled Allopurinol (Allopurinol), 300 MG PO DAILY, (Reported) Apixaban Base (Eliquis), 5 MG PO BID Atorvastatin Calcium (Lipitor), 1 TAB PO DAILY, (Reported) Cetirizine Hcl (Kls Aller-Maria Teresa), 1 TAB PO DAILY, (Reported) Ciprofloxacin Hcl (Cipro), 500 MG PO BID, (Reported) Diltiazem Hcl (Diltiazem Hcl), 120 MG PO DAILY, (Reported) Docusate Sodium (Colace), 1 CAP PO BID, (Reported) Duloxetine Hcl (Cymbalta), 1 CAP PO DAILY, (Reported) Hydrochlorothiazide (Hydrochlorothiazide), 12.5 MG PO DAILY, (Reported) Lisinopril (Lisinopril), 5 MG PO DAILY, (Reported) Metoprolol Tartrate (Lopressor), 12.5 MG PO BID Nitroglycerin (Nitroglycerin), DAILYP, (Reported) Nortriptyline Hcl (Pamelor Capsule), 50 MG PO BID, (Reported) Omeprazole (Sm Omeprazole), 40 MG PO DAILY, (Reported) Potassium Chloride (K-Tabs), 30 PO BID, (Reported) Prednisone (Prednisone), 60 MG PO DAILY Pseudoephedrine HCl ([facility] 12 Hour Nasal [place]), 60 MG PO BID, (Reported) Senna (Sennosides), PO DAILYP, (Reported) Tamsulosin Hcl (Tamsulosin Hcl), 0.4 MG PO QPM, (Reported) Trazodone Hcl (Trazodone Hcl), PO HS, (Reported) Scheduled PRN Acetaminophen (Acetaminophen), 500 MG PO Q8HPRN PRN for MILD PAIN, (Reported) Miscellaneous Medications Albuterol Sulfate (Albuterol Sulfate), (Reported) Cholecalciferol (D 400), (Reported) Citalopram Hydrobromide (Citalopram Hydrobromide), (Reported) Epinephrine Hcl (Anaphylaxis) (Epipen), (Reported) Multiple Vitamin (Mvi Tab), (Reported) [place]-3 Fatty Acids (Fish Oil), (Reported) Discharge Statement: "Patient was advised to return to the ER or call 911 if any headaches, dizziness, shortness of breath, chest pain, abdominal pain, bleeding, fevers, or worsening of medical condition. Patient was counseled about treatment plan, medications, possible side effects, patientverbalized understanding. All questions were answered to the best of my ability. This discharge took greater then 30 minutes in planning, reviewing documentation, counseling the patient, and discussing with other team members." ASSESSMENT ASSESSMENT Assessment 1. 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 Hyperlipidemia Continue antihyperlidemic medication 3. Paroxysmal A-fib TETO CRAMER NP Aug 27, 2025 13:19
--- NOTE | 2025-08-27 20:51 | DVHPN2 ---
Progress Note - Dictate Date Seen: Aug 27, 2025 Medical Necessity Reason Pt with a Central, PICC or Fol: No vital signs Vital Sign Date Time Temp Pulse Resp B/P (MAP) Pulse Ox O2 Delivery O2 Flow Rate FiO2 08/27/25 17:00 98.3 91 19 123/75 (91) 96 98.3 08/27/25 08:00 Room Air* 0 21 Total Intake and Output 08/26/25 08/26/25 08/27/25 15:00 23:00 07:00 Intake Total 840 ml 780 ml Output Total 1625 ml 675 ml Balance -785 ml 105 ml medications Current Medications Medications Dose Ordered Sig/Jason Route Start Time Stop Time Status Last Admin Dose Admin Ondansetron HCl 4 mg Q4HP PRN IV 08/18/25 09:00 Hydralazine HCl 10 mg Q6HP PRN IV 08/18/25 11:45 08/20/25 14:19 10 MG Pantoprazole Sodium 40 mg DAILY IV 08/21/25 10:00 08/27/25 09:15 40 MG Lidocaine HCl 0.5 ml ONCE PRN ID 08/20/25 16:15 08/20/25 15:15 0.5 ML Sodium Chloride 10 ml QSHIFT@10,22 IV 08/20/25 22:00 08/27/25 10:26 10 ML Metoprolol Tartrate 5 mg BID IV 08/20/25 22:00 08/27/25 09:16 5 MG Morphine Sulfate 2 mg Q4HPRN PRN IV 08/20/25 22:45 08/27/25 14:58 2 MG Sodium Chloride 1,000 ml @ 50 mls/hr Q20H IV 08/21/25 09:15 08/26/25 07:01 50 MLS/HR Acetaminophen 650 mg Q6HP PRN [place] 08/21/25 18:30 08/22/25 12:21 650 MG Loratadine 10 mg DAILY PO 08/24/25 10:00 08/27/25 09:16 10 MG Diphenhydramine HCl 25 mg Q8HP PRN PO 08/27/25 20:30 Acetaminophen 1,000 mg BID PRN PO 08/27/25 20:45 objective General Appearance: alert, no distress HEENT: EOMI, PERRLA, normal external inspect of ears, no icterus, no nasal drainage Neck: no carotid bruit, no jugular venous distention (JVD), no lymphadenopathy Chest: normal thorax Respiratory: clear to auscultation, normal air movement Cardiovascular: regular rate and rhythm, no diastolic murmur, no jugular venous distention (JVD), no rub, no systolic murmur Abdominal: soft, no hepatomegaly, no mass, no splenomegaly, no tenderness Genitourinary: grossly normal external Musculoskeletal: no joint tenderness, no swelling Extremities: normal pulses, no calf tenderness, no clubbing, no cyanosis, no edema Skin: no bruising, no jaundice, no rash Neurological: alert, No focal deficit laboratory and microbiology Laboratory Tests 08/27/25 05:32 Test 08/27/25 05:32 Range/Units Serum Glucose 110 H 74-106 mg/dL Problem List 1. 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 Hyperlipidemia Continue antihyperlidemic medication 3. Paroxysmal A-fib Monitor on EKG, continue full dose anticoagulation Assessment/Plan Subjective Patient is awake and alert. Objective Patient was admitted for abdominal pain. Patient found to have abdominal volvulus and small bowel obstruction. Patient is status post colectomy with ileostomy by Dr. Reeves. Plan Still pending home health arrangements. According to RN, home health company is not open during the weekend. Plan for discharge possibly on Friday. Continue current treatment. Dietary Evaluation Review Comments: Assessment: Patient is NPO due to GI procedures. At risk for inadequate energy and protein intake. Estimated needs: 5350-4079 kcal/day, 80-101 g protein/day. Diagnosis (PES): Inadequate oral intake related to NPO status as evidenced by need for parenteral nutrition support to meet estimated requirements. Intervention: Initiate TPN per pharmacy protocol to provide: Energy: 6271-2547 kcal/day Protein: 80-101 g/day Maintain NPO until medically cleared. Offer Jose BID to promote healing of his foot wound when Pt is able to take PO clear liquids. Monitoring/Evaluation: Reassess nutrition plan after GI procedures completed. Monitor: GI consult reports Updated lab values (electrolytes, renal function, glucose) Reassess PRN based on clinical status and tolerance. Expected Outcomes/Goals: Advance to PO diet when bowel obstruction resolved and medically feasible Plan discussed with: Patient, Other TETO CRAMER MOMD TEACHER Aug 27, 2025:51
[2025-08-27] MEDS: ACETAMINOPHEN 500 MG TAB or CAP PO PRN (20:57)
--- NOTE | 2025-08-27 21:04 | DVHPN2 ---
Progress Note - Dictate Date Seen: Aug 27, 2025 Medical Necessity Reason Pt with a Central, PICC or Fol: No Subjective Postop day 7. 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 Ileostomy is functional, patient has started a regular diet vital signs Vital Sign Date Time Temp Pulse Resp B/P (MAP) Pulse Ox O2 Delivery O2 Flow Rate FiO2 08/27/25 17:00 98.3 91 19 123/75 (91) 96 98.3 08/27/25 08:00 Room Air* 0 21 Total Intake and Output 08/26/25 08/26/25 08/27/25 15:00 23:00 07:00 Intake Total 840 ml 780 ml Output Total 1625 ml 675 ml Balance -785 ml 105 ml medications Current Medications Medications Dose Ordered Sig/Jason Route Start Time Stop Time Status Last Admin Dose Admin Ondansetron HCl 4 mg Q4HP PRN IV 08/18/25 09:00 Hydralazine HCl 10 mg Q6HP PRN IV 08/18/25 11:45 08/20/25 14:19 10 MG Pantoprazole Sodium 40 mg DAILY IV 08/21/25 10:00 08/27/25 09:15 40 MG Lidocaine HCl 0.5 ml ONCE PRN ID 08/20/25 16:15 08/20/25 15:15 0.5 ML Sodium Chloride 10 ml QSHIFT@10,22 IV 08/20/25 22:00 08/27/25 10:26 10 ML Metoprolol Tartrate 5 mg BID IV 08/20/25 22:00 08/27/25 09:16 5 MG Morphine Sulfate 2 mg Q4HPRN PRN IV 08/20/25 22:45 08/27/25 14:58 2 MG Sodium Chloride 1,000 ml @ 50 mls/hr Q20H IV 08/21/25 09:15 08/26/25 07:01 50 MLS/HR Acetaminophen 650 mg Q6HP PRN [place] 08/21/25 18:30 08/22/25 12:21 650 MG Loratadine 10 mg DAILY PO 08/24/25 10:00 08/27/25 09:16 10 MG Diphenhydramine HCl 25 mg Q8HP PRN PO 08/27/25 20:30 Acetaminophen 1,000 mg BID PRN PO 08/27/25 20:45 objective GEN: NAD ABD: surgical dressing clean and dry. ostomy viable with scant stool laboratory and microbiology Laboratory Tests 08/27/25 05:32 Test 08/27/25 05:32 Range/Units Serum Glucose 110 H 74-106 mg/dL Problems(with codes): (1) Hypotension (2) Wound of left leg (3) N&V (nausea and vomiting) (4) INTESTINAL OBSTRUCT NOS Prognosis Plan Continue supportive care Advance diet as tolerated Outpatient follow up with Surgical Services for further surgical management Discharge planning after ostomy supplies and DME is arranged Dietary Evaluation Review Comments: Assessment: Patient is NPO due to GI procedures. At risk for inadequate energy and protein intake. Estimated needs: 8172-2614 kcal/day, 80-101 g protein/day. Diagnosis (PES): Inadequate oral intake related to NPO status as evidenced by need for parenteral nutrition support to meet estimated requirements. Intervention: Initiate TPN per pharmacy protocol to provide: Energy: 2748-9385 kcal/day Protein: 80-101 g/day Maintain NPO until medically cleared. Offer Jose BID to promote healing of his foot wound when Pt is able to take PO clear liquids. Monitoring/Evaluation: Reassess nutrition plan after GI procedures completed. Monitor: GI consult reports Updated lab values (electrolytes, renal function, glucose) Reassess PRN based on clinical status and tolerance. Expected Outcomes/Goals: Advance to PO diet when bowel obstruction resolved and medically feasible Plan discussed with: Patient SRINIVASAN ALVARES MD Aug 27, 2025 21:04
[2025-08-28] VITALS (8 sets, daily range): BP systolic 119–143; BP diastolic 59–76; PULSE 81–91; RESP 16–18; TEMP 97.2–99.4; O2SAT 94–100
--- NOTE | 2025-08-28 16:31 | DVHPN2 ---
Progress Note - Dictate Date Seen: Aug 28, 2025 Medical Necessity Reason Pt with a Central, PICC or Fol: No Subjective Postop day 8 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 Ileostomy is functional, patient has started a regular diet Patient is ambulating well with physical therapy vital signs Vital Sign Date Time Temp Pulse Resp B/P (MAP) Pulse Ox O2 Delivery O2 Flow Rate FiO2 08/28/25 13:37 98.9 08/28/25 12:43 87 17 119/68 (85) 100 08/28/25 08:00 Room Air* 0 21 Total Intake and Output 08/27/25 08/27/25 08/28/25 15:00 23:00 07:00 Intake Total 840 ml 700 ml Output Total 1400 ml 8000 ml Balance -560 ml -7300 ml medications Current Medications Medications Dose Ordered Sig/Jason Route Start Time Stop Time Status Last Admin Dose Admin Ondansetron HCl 4 mg Q4HP PRN IV 08/18/25 09:00 Hydralazine HCl 10 mg Q6HP PRN IV 08/18/25 11:45 08/20/25 14:19 10 MG Pantoprazole Sodium 40 mg DAILY IV 08/21/25 10:00 08/28/25 09:26 40 MG Lidocaine HCl 0.5 ml ONCE PRN ID 08/20/25 16:15 08/20/25 15:15 0.5 ML Sodium Chloride 10 ml QSHIFT@10,22 IV 08/20/25 22:00 08/28/25 10:00 10 ML Metoprolol Tartrate 5 mg BID IV 08/20/25 22:00 08/28/25 09:26 5 MG Morphine Sulfate 2 mg Q4HPRN PRN IV 08/20/25 22:45 08/27/25 14:58 2 MG Sodium Chloride 1,000 ml @ 50 mls/hr Q20H IV 08/21/25 09:15 08/26/25 07:01 50 MLS/HR Acetaminophen 650 mg Q6HP PRN [place] 08/21/25 18:30 08/22/25 12:21 650 MG Loratadine 10 mg DAILY PO 08/24/25 10:00 08/28/25 09:27 10 MG Diphenhydramine HCl 25 mg Q8HP PRN PO 08/27/25 20:30 08/27/25 20:57 25 MG Acetaminophen 1,000 mg BID PRN PO 08/27/25 20:45 08/28/25 12:37 1,000 MG objective GEN: NAD ABD: surgical dressing clean and dry. ostomy viable with scant stool laboratory and microbiology Laboratory Tests 08/27/25 05:32 Test 08/27/25 05:32 Range/Units Serum Glucose 110 H 74-106 mg/dL Problems(with codes): (1) CHR PULMON HEART DIS NEC (2) CHRONIC DIASTOLIC HRT FAILURE (3) INTESTINAL OBSTRUCT NOS (4) N&V (nausea and vomiting) Prognosis Plan Continue supportive care Advance diet as tolerated Outpatient follow up with Surgical Services for further surgical management Discharge planning after ostomy supplies and DME is arranged Dietary Evaluation Review Comments: Assessment: Patient is NPO due to GI procedures. At risk for inadequate energy and protein intake. Estimated needs: 6462-1982 kcal/day, 80-101 g protein/day. Diagnosis (PES): Inadequate oral intake related to NPO status as evidenced by need for parenteral nutrition support to meet estimated requirements. Intervention: Initiate TPN per pharmacy protocol to provide: Energy: 2854-5171 kcal/day Protein: 80-101 g/day Maintain NPO until medically cleared. Offer Jose BID to promote healing of his foot wound when Pt is able to take PO clear liquids. Monitoring/Evaluation: Reassess nutrition plan after GI procedures completed. Monitor: GI consult reports Updated lab values (electrolytes, renal function, glucose) Reassess PRN based on clinical status and tolerance. Expected Outcomes/Goals: Advance to PO diet when bowel obstruction resolved and medically feasible Plan discussed with: Patient SRINIVASAN ALVARES MD Aug 28, 2025 16:31
--- NOTE | 2025-08-28 17:03 | DVHPN2 ---
Progress Note - Dictate Date Seen: Aug 28, 2025 Medical Necessity Reason Pt with a Central, PICC or Fol: No vital signs Vital Sign Date Time Temp Pulse Resp B/P (MAP) Pulse Ox O2 Delivery O2 Flow Rate FiO2 08/28/25 13:37 98.9 08/28/25 12:43 87 17 119/68 (85) 100 08/28/25 08:00 Room Air* 0 21 Total Intake and Output 08/27/25 08/27/25 08/28/25 15:00 23:00 07:00 Intake Total 840 ml 700 ml Output Total 1400 ml 8000 ml Balance -560 ml -7300 ml medications Current Medications Medications Dose Ordered Sig/Jason Route Start Time Stop Time Status Last Admin Dose Admin Ondansetron HCl 4 mg Q4HP PRN IV 08/18/25 09:00 Hydralazine HCl 10 mg Q6HP PRN IV 08/18/25 11:45 08/20/25 14:19 10 MG Pantoprazole Sodium 40 mg DAILY IV 08/21/25 10:00 08/28/25 09:26 40 MG Lidocaine HCl 0.5 ml ONCE PRN ID 08/20/25 16:15 08/20/25 15:15 0.5 ML Sodium Chloride 10 ml QSHIFT@10,22 IV 08/20/25 22:00 08/28/25 10:00 10 ML Metoprolol Tartrate 5 mg BID IV 08/20/25 22:00 08/28/25 09:26 5 MG Morphine Sulfate 2 mg Q4HPRN PRN IV 08/20/25 22:45 08/27/25 14:58 2 MG Sodium Chloride 1,000 ml @ 50 mls/hr Q20H IV 08/21/25 09:15 08/26/25 07:01 50 MLS/HR Acetaminophen 650 mg Q6HP PRN [place] 08/21/25 18:30 08/22/25 12:21 650 MG Loratadine 10 mg DAILY PO 08/24/25 10:00 08/28/25 09:27 10 MG Diphenhydramine HCl 25 mg Q8HP PRN PO 08/27/25 20:30 08/27/25 20:57 25 MG Acetaminophen 1,000 mg BID PRN PO 08/27/25 20:45 08/28/25 12:37 1,000 MG objective General Appearance: alert, no distress HEENT: EOMI, PERRLA, normal external inspect of ears, no icterus, no nasal drainage Neck: no carotid bruit, no jugular venous distention (JVD), no lymphadenopathy Chest: normal thorax Respiratory: clear to auscultation, normal air movement Cardiovascular: regular rate and rhythm, no diastolic murmur, no jugular venous distention (JVD), no rub, no systolic murmur Abdominal: soft, no hepatomegaly, no mass, no splenomegaly, no tenderness Genitourinary: grossly normal external Musculoskeletal: no joint tenderness, no swelling Extremities: normal pulses, no calf tenderness, no clubbing, no cyanosis, no edema Skin: no bruising, no jaundice, no rash Neurological: alert, No focal deficit laboratory and microbiology Laboratory Tests 08/27/25 05:32 Test 08/27/25 05:32 Range/Units Serum Glucose 110 H 74-106 mg/dL Problem List 1. 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 Hyperlipidemia Continue antihyperlidemic medication 3. Paroxysmal A-fib Monitor on EKG, continue full dose anticoagulation Assessment/Plan Subjective: Patient is awake and alert. Objective: Patient was admitted for abdominal pain related to colonic volvulus. Patient has underlying history of hyperlipidemia and hypertension. Patient is status post colectomy and ileostomy related to small bowel obstruction and colonic volvulus. Patient has a prior history of CVA and he has decreased range of motion to left upper extremity. Patient having difficulty changing ileostomy bag. Plan: RNs to teach patient how to change ileostomy bag. Home health is still pending. Plan for discharge tomorrow if all home health and DME supplies are sent. Dietary Evaluation Review Comments: Assessment: Patient is NPO due to GI procedures. At risk for inadequate energy and protein intake. Estimated needs: 9546-8324 kcal/day, 80-101 g protein/day. Diagnosis (PES): Inadequate oral intake related to NPO status as evidenced by need for parenteral nutrition support to meet estimated requirements. Intervention: Initiate TPN per pharmacy protocol to provide: Energy: 1413-8503 kcal/day Protein: 80-101 g/day Maintain NPO until medically cleared. Offer Jose BID to promote healing of his foot wound when Pt is able to take PO clear liquids. Monitoring/Evaluation: Reassess nutrition plan after GI procedures completed. Monitor: GI consult reports Updated lab values (electrolytes, renal function, glucose) Reassess PRN based on clinical status and tolerance. Expected Outcomes/Goals: Advance to PO diet when bowel obstruction resolved and medically feasible Plan discussed with: Patient, Other TETO CRAMER NP Aug 28, 2025 17:03
[2025-08-29 01:00] VITALS: BP 119/63; PULSE 61; RESP 15; TEMP 98.1; O2SAT 91
[2025-08-29 05:00] VITALS: BP 150/86; PULSE 63; RESP 16; TEMP 98; O2SAT 92
[2025-08-29 08:00] VITALS: PULSE 84
[2025-08-29 09:00] VITALS: BP 138/78; PULSE 82; RESP 19; TEMP 98.1; O2SAT 96
--- NOTE | 2025-08-29 11:07 | DVHDS2 ---
Discharge Summary Date of Admission Aug 18, 2025 at 08:54 Date of Discharge: Aug 29, 2025 Labs/Diagnostic Data: Laboratory Results Test 08/27/25 05:32 08/24/25 11:26 08/24/25 06:07 08/20/25 06:15 White Blood Count 7.0 10^3/uL (4.4-10.8) Red Blood Count 4.41 10^6/uL (4.5-5.90) Hemoglobin 10.6 g/dL (13.5-17.5) Hematocrit 33.9 % (41.0-53.0) Mean Corpuscular Volume 76.9 fL (80.0-100.0) Mean Corpuscular Hemoglobin 24.1 pg (28.0-32.0) Mean Corpuscular Hemoglobin Concent 31.4 g/dL (32.0-36.0) Red Cell Distribution Width 21.5 % (11.8-14.3) Platelet Count 218 10^3/uL (140-450) Mean Platelet Volume 8.1 fL (6.9-10.8) Neutrophils (%) (Auto) 72.6 % (37.0-80.0) Lymphocytes (%) (Auto) 13.4 % (10.0-50.0) Monocytes (%) (Auto) 10.8 % (0.0-12.0) Eosinophils (%) (Auto) 3.1 % (0.0-7.0) Basophils (%) (Auto) 0.1 % (0.0-2.0) Neutrophils # (Auto) 5.1 10 ^3/uL (1.6-8.6) Lymphocytes # (Auto) 0.9 10 ^3/uL (0.4-5.4) Monocytes # (Auto) 0.8 10 ^3/uL (0-1.3) Eosinophils # (Auto) 0.2 10 ^3/uL (0-0.8) Basophils # (Auto) 0 10 ^3/uL (0-0.2) Nucleated Red Blood Cells 0.0 % Sodium Level 137 mmol/L (136-145) Potassium Level 5.0 mmol/L (3.5-5.1) Chloride Level 104 mmol/L (98-107) Carbon Dioxide Level 24 mmol/L (20-31) Anion Gap 9 (5-15) Blood Urea Nitrogen 21 mg/dL (9-23) Creatinine 0.94 mg/dL (0.700-1.30) Glomerular Filtration Rate Calc 86 mL/min (>90) BUN/Creatinine Ratio 22.3 (10.0-20.0) Serum Glucose 110 mg/dL (74-106) Calcium Level 9.5 mg/dL (8.7-10.4) POC Glucose 100 mg/dl (70-106) Phosphorus Level 3.0 mg/dL (2.4-5.1) Magnesium Level 1.9 mg/dL (1.6-2.6) Total Bilirubin 0.3 mg/dL (0.2-1.0) Aspartate Amino Transferase (AST) 28 U/L (13-40) Alanine Aminotransferase (ALT) 23 U/L (7-40) Alkaline Phosphatase 78 U/L (46-116) Total Protein 5.1 g/dL (5.7-8.2) Albumin 3.1 g/dL (3.2-4.8) Triglycerides Level 86 mg/dL (< 150) Test 08/19/25 05:36 08/18/25 08:28 Prothrombin Time 10.7 sec (9.3-11.8) Prothrombin Time INR 1.01 (0.9-1.15) Activated Partial Thromboplast Time 26.2 SEC (24.5-34.5) Lipase 24 U/L (12-53) Carcinoembryonic Antigen 5.46 ng/mL (<=5.0) Urine Color Yellow (Yellow) Urine Clarity Turbid (Clear) Urine pH 5.5 (5.0-9.0) Urine Specific [place] 1.026 (1.001-1.035) Urine Protein Trace (Negative) Urine Ketones Negative (Negative) Urine Blood 3+ /uL (Negative) Urine Nitrite Negative (Negative) Urine Bilirubin Negative (Negative) Urine Urobilinogen Normal mg/dL (Negative) Urine Leukocyte Esterase 1+ /uL (Negative) Urine RBC 602 /hpf (0 - 3) Urine Microscopic WBC 12 /HPF (0-3) Urine Squamous Epithelial Cells Few /hpf (<5) Urine Bacteria Few /hpf (None Seen) Urine Hyaline Casts Mod /lpf (0 - 2) Urine Mucus Few (None Seen) Urine Glucose Normal mg/dL (Normal) Other Laboratory Tests 08/27/25 05:32 Condition at Discharge: Guarded Final Diagnosis/Problems List 1. 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 Hyperlipidemia Continue antihyperlidemic medication 3. Paroxysmal A-fib Discharge Disposition: Home with Health Services Discharge Instruct/Medications Diet: Consistent carbohydrate Activity: No Restrictions, As Tolerated Follow Up/Referral: PCP within 1 week Scheduled Allopurinol (Allopurinol), 300 MG PO DAILY, (Reported) Apixaban Base (Eliquis), 5 MG PO BID Atorvastatin Calcium (Lipitor), 1 TAB PO DAILY, (Reported) Cetirizine Hcl (Kls Aller-[place]), 1 TAB PO DAILY, (Reported) Ciprofloxacin Hcl (Cipro), 500 MG PO BID, (Reported) Diltiazem Hcl (Diltiazem Hcl), 120 MG PO DAILY, (Reported) Docusate Sodium (Colace), 1 CAP PO BID, (Reported) Duloxetine Hcl (Cymbalta), 1 CAP PO DAILY, (Reported) Hydrochlorothiazide (Hydrochlorothiazide), 12.5 MG PO DAILY, (Reported) Lisinopril (Lisinopril), 5 MG PO DAILY, (Reported) Metoprolol Tartrate (Lopressor), 12.5 MG PO BID Nitroglycerin (Nitroglycerin), DAILYP, (Reported) Nortriptyline Hcl (Pamelor Capsule), 50 MG PO BID, (Reported) Omeprazole (Sm Omeprazole), 40 MG PO DAILY, (Reported) Potassium Chloride (K-Tabs), 30 PO BID, (Reported) Prednisone (Prednisone), 60 MG PO DAILY Pseudoephedrine HCl ([facility] 12 Hour Nasal [place]), 60 MG PO BID, (Reported) Senna (Sennosides), PO DAILYP, (Reported) Tamsulosin Hcl (Tamsulosin Hcl), 0.4 MG PO QPM, (Reported) Trazodone Hcl (Trazodone Hcl), PO HS, (Reported) Scheduled PRN Acetaminophen (Acetaminophen), 500 MG PO Q8HPRN PRN for MILD PAIN, (Reported) Miscellaneous Medications Albuterol Sulfate (Albuterol Sulfate), (Reported) Cholecalciferol (D 400), (Reported) Citalopram Hydrobromide (Citalopram Hydrobromide), (Reported) Epinephrine Hcl (Anaphylaxis) (Epipen), (Reported) Multiple Vitamin (Mvi Tab), (Reported) [place]-3 Fatty Acids (Fish Oil), (Reported) Discharge Statement: "Patient was advised to return to the ER or call 911 if any headaches, dizziness, shortness of breath, chest pain, abdominal pain, bleeding, fevers, or worsening of medical condition. Patient was counseled about treatment plan, medications, possible side effects, patientverbalized understanding. All questions were answered to the best of my ability. This discharge took greater then 30 minutes in planning, reviewing documentation, counseling the patient, and discussing with other team members." ASSESSMENT ASSESSMENT Assessment 1. 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 Hyperlipidemia Continue antihyperlidemic medication 3. Paroxysmal A-fib TETO CRAMER NP Aug 29, 2025 11:07
[2025-08-29] MEDS: METOPROLOL TARTRATE 25 MG TAB PO SCH (12:20)
[2025-08-29 14:01] VITALS: BP 135/66; PULSE 88
--- NOTE | 2025-08-29 14:05 | DVHPN2 ---
Subjective Patient is on a regular diet Changes from previous H/P or p: No Changes Objective Vitals Vital Signs Date Time Temp Pulse Resp B/P (MAP) Pulse Ox O2 Delivery O2 Flow Rate FiO2 08/29/25 12:20 88 135/66 08/29/25 09:00 98.1 19 96 98.1 08/28/25 20:00 Room Air* 0 21 Intake/Output Intake and Output 08/29/25 07:00 Intake Total 2365 ml Output Total 1950 ml Balance 415 ml Intake Oral 2365 ml Output Urine Total 1950 ml Exam GEN: NAD ABD: surgical dressing clean and dry. ostomy viable with stool Medications Current Medications Medications Dose Ordered Sig/Jason Route Start Time Stop Time Status Last Admin Dose Admin Ondansetron HCl 4 mg Q4HP PRN IV 08/18/25 09:00 Hydralazine HCl 10 mg Q6HP PRN IV 08/18/25 11:45 08/20/25 14:19 10 MG Pantoprazole Sodium 40 mg DAILY IV 08/21/25 10:00 08/29/25 12:21 40 MG Lidocaine HCl 0.5 ml ONCE PRN ID 08/20/25 16:15 08/20/25 15:15 0.5 ML Sodium Chloride 10 ml QSHIFT@10,22 IV 08/20/25 22:00 08/28/25 20:50 10 ML Morphine Sulfate 2 mg Q4HPRN PRN IV 08/20/25 22:45 08/29/25 06:51 2 MG Sodium Chloride 1,000 ml @ 50 mls/hr Q20H IV 08/21/25 09:15 08/26/25 07:01 50 MLS/HR Acetaminophen 650 mg Q6HP PRN [place] 08/21/25 18:30 08/22/25 12:21 650 MG Loratadine 10 mg DAILY PO 08/24/25 10:00 08/29/25 12:19 10 MG Diphenhydramine HCl 25 mg Q8HP PRN PO 08/27/25 20:30 08/29/25 12:22 25 MG Acetaminophen 1,000 mg BID PRN PO 08/27/25 20:45 08/28/25 22:19 1,000 MG Metoprolol Tartrate 25 mg BID PO 08/29/25 12:00 08/29/25 12:20 25 MG Laboratory Results Laboratory Tests 08/27/25 05:32 Urinalysis Test 08/18/25 08:28 Urine Color Yellow (Yellow) Urine Clarity Turbid (Clear) H Urine pH 5.5 (5.0-9.0) Urine Specific [place] 1.026 (1.001-1.035) Urine Protein Trace (Negative) H Urine Ketones Negative (Negative) Urine Blood 3+ /uL (Negative) H Urine Nitrite Negative (Negative) Urine Bilirubin Negative (Negative) Urine Urobilinogen Normal mg/dL (Negative) Urine Leukocyte Esterase 1+ /uL (Negative) Urine RBC 602 /hpf (0 - 3) Urine Microscopic WBC 12 /HPF (0-3) H Urine Squamous Epithelial Cells Few /hpf (<5) Urine Bacteria Few /hpf (None Seen) H Urine Hyaline Casts Mod /lpf (0 - 2) Urine Mucus Few (None Seen) Urine Glucose Normal mg/dL (Normal) Microbiology Microbiology Date/Time Source Procedure Growth Status 08/20/25 11:46 Abdomen Gram Stain - Final Complete 08/20/25 11:46 Abdomen Anaerobic Culture - Final Complete 08/20/25 11:46 Abdomen Aerobic Culture - Final Complete Assessment/Plan Assessment/Plan Colonic volvulus status post colectomy and ileostomy Status post gastric bypass Plan Discussed with Dr. Lorenz Supportive care recommended Diet as tolerated Outpatient GI follow-up recommended Plan discussed with: Patient Date of Service: Aug 29, 2025 Billing Provider: FREDDY GIRALDO Common Visit Codes: [id number] INP/OBS CARE(HIGH) FREDDY GIRALDO Aug 29, 2025 14:05
[2025-08-29 16:53] VITALS: BP 106/66; PULSE 77; RESP 17; TEMP 98; O2SAT 96
== END 2025-08-29 21:15 | disposition home health service (06) | DRG 329 ==
LOC: EDBD 05:55 → ER 05:55 → OVERFLOW 08:54 → EAST 15:05 → TELE-EAST 08-22 07:23
PROVIDERS: ADMIT Nurse Practitioner; ATTEND Nurse Practitioner
PROC: 0D1B0Z4 Bypass Ileum to Cutaneous, Open Approach (ICD-10-PCS; 2025-08-20)
PROC: 02HV33Z Insertion of Infusion Device into Superior Vena Cava, Percutaneous Approach (ICD-10-PCS; 2025-08-20)
PROC: B548ZZA Ultrasonography of Superior Vena Cava, Guidance (ICD-10-PCS; 2025-08-20)
PROC: 0DTF0ZZ Resection of Right Large Intestine, Open Approach (ICD-10-PCS; principal; 2025-08-20 11:09)
DX: K56.2 Volvulus (principal); J96.21 Acute and chronic respiratory failure with hypoxia; N17.0 Acute kidney failure with tubular necrosis; K59.39 Other megacolon; J96.11 Chronic respiratory failure with hypoxia; Z79.01 Long term (current) use of anticoagulants; I50.32 Chronic diastolic (congestive) heart failure; I11.0 Hypertensive heart disease with heart failure; J44.9 Chronic obstructive pulmonary disease, unspecified; E66.01 Morbid (severe) obesity due to excess calories; D64.9 Anemia, unspecified; K76.0 Fatty (change of) liver, not elsewhere classified; K56.609 Unspecified intestinal obstruction, unspecified as to partial versus complete obstruction; E78.5 Hyperlipidemia, unspecified; I48.0 Paroxysmal atrial fibrillation; Z88.2 Allergy status to sulfonamides; Z88.6 Allergy status to analgesic agent; Z88.8 Allergy status to other drugs, medicaments and biological substances; Z90.49 Acquired absence of other specified parts of digestive tract; Z83.3 Family history of diabetes mellitus; Z82.62 Family history of osteoporosis; Z82.5 Family history of asthma and other chronic lower respiratory diseases; Z82.49 Family history of ischemic heart disease and other diseases of the circulatory system; Z82.3 Family history of stroke; Z82.0 Family history of epilepsy and other diseases of the nervous system; Z81.8 Family history of other mental and behavioral disorders; Z80.8 Family history of malignant neoplasm of other organs or systems; Z80.42 Family history of malignant neoplasm of prostate; Z80.3 Family history of malignant neoplasm of breast; Z80.1 Family history of malignant neoplasm of trachea, bronchus and lung; Z80.0 Family history of malignant neoplasm of digestive organs; Z98.84 Bariatric surgery status; Z99.81 Dependence on supplemental oxygen; Z68.28 Body mass index [BMI] 28.0-28.9, adult
CPT/HCPCS: 36415; 36569; 71045; 74018; 74177; 76705; 76937; 80048; 80053; 81001; 82378; 82962; 83690; 83735; 84100; 84478; 85025; 85610; 85730; 86850; 86900; 86901; 87070; 87075; 87205; 93005; 93306; 94640; 96372; 97110; 97116; 97163; 97530; G0378; J0131; J1815; J2250; J2470; J2543; J3490; J7131